=== PATIENT | male | born 1955 | race Caucasian/White ===

== ENCOUNTER → 2017-09-19 07:09 | Outpatient (CLI) | payer OTHER, SELFPAY ==
[2017-09-19 08:45] LABS: AST(SGOT) 20 U/L (15-37); Alanine Aminotransfer ALT/SGPT 31 U/L (16-61); Albumin, Serum 3.8 g/dL (3.2-5.0); Alkaline Phosphatase 107 U/L (45-117); Bilirubin, Direct 0.11 mg/dL (0.00-0.30); Cholesterol 151 mg/dL (200); Globulin 3.6 g/dL (2.2-4.2); High Density Lipoprotein 57 mg/dL; Protein, Total 7.4 g/dL (6.4-8.2); Triglycerides 82 mg/dL; Very Low Density Lipoprotein 16 mg/dL (5-40)
== END ==
PROVIDERS: Family Provider Family Medicine; PCP Family Medicine; Visit Provider Internal Medicine Cardiovascular Disease
DX: E78.5 Hyperlipidemia, unspecified (principal)
CPT/HCPCS: 36415; 80061; 80076

== ENCOUNTER → 2018-03-20 07:03 | Outpatient (CLI) | payer OTHER, SELFPAY ==
[2018-03-20 07:57] LABS: AST(SGOT) 26 U/L (15-37); Alanine Aminotransfer ALT/SGPT 49 U/L (16-61); Albumin, Serum 3.8 g/dL (3.2-5.0); Alkaline Phosphatase 96 U/L (45-117); Bilirubin, Direct 0.13 mg/dL (0.00-0.30); Cholesterol 133 mg/dL (200); Globulin 3.7 g/dL (2.2-4.2); High Density Lipoprotein 46 mg/dL; Protein, Total 7.5 g/dL (6.4-8.2); Triglycerides 90 mg/dL; Very Low Density Lipoprotein 18 mg/dL (5-40)
== END ==
PROVIDERS: Family Provider Family Medicine; PCP Family Medicine; Referring Provider Physician Assistant Medical; Visit Provider Physician Assistant Medical
DX: E78.5 Hyperlipidemia, unspecified (principal); I25.10 Atherosclerotic heart disease of native coronary artery without angina pectoris
CPT/HCPCS: 36415; 80061; 80076

== ENCOUNTER → 2018-06-26 09:04 | Outpatient (CLI) | payer MEDICARE, OTHER, SELFPAY ==
[2018-06-26 09:04] VITALS: BMI 36.6
[2018-06-26 09:41] LABS: Erythrocyte Sedimentation Rate 12 mm/hr (0-20)
[2018-06-26 09:43] LABS: Absolute Lymphocyte Count 1.56 X10^3/ul (0.83-4.51); Absolute Neutrophil Count 3.5 X10^3/uL (2.0-7.7); Basophil# 0.07 X10^3/uL; Basophil% 1.2 % (0-1); Eosinophil# 0.19 X10^3/uL; Eosinophils% 3.3 % (0-5); Hematocrit 45.2 % (40-54); Hemoglobin 15.6 g/dl (13.0-16.5); Lymphocyte # 1.56 X10^3/ul (4.0); Mean Corp Hgb Conc 34.5 g/gl (32-36); Mean Corpuscular Hgb 31.7 pg (27.0-32.0); Mean Corpuscular Volume 91.9 fL (80-94); Mean Platelet Vol. 11.4 fl (6.2-12.0); Monocyte# 0.45 X10^3/uL; Monocyte% 7.8 % (0-10); Neutrophil # 3.47 X10^3/uL (2.7-7.7); Neutrophil % 60.2 % (47-70); Platelet Count 234 K/mm3 (150-450); RBC Distribution Width CV 13.8 % (11.6-14.6); RBC Distribution Width SD 44.7 fl (35.1-43.9); Red Blood Count 4.92 M/mm3 (4.6-6.2); White Blood Count 5.8 K/mm3 (4.4-11.0)
[2018-06-26 09:47] LABS: POSITIVE COUNT NO; POSITIVE DIFFERENTIAL NO; POSITIVE MORPHOLOGY NO
[2018-06-26 10:12] LABS: ALB/GLOB Ratio 1.2 RATIO (0.9-2.4); AST(SGOT) 39 U/L (15-37); Alanine Aminotransfer ALT/SGPT 65 U/L (16-61); Albumin, Serum 3.9 g/dL (3.2-5.0); Alkaline Phosphatase 106 U/L (45-117); Anion Gap 12 (5-15); BUN 13 mg/dL (7-18); CRP 6.09 mg/L (0.0-3.0); Chloride 105 mmol/L (98-107); Creatinine, Serum 0.72 mg/dL (0.70-1.30); EST Glomerular Filtration Rate 116 mL/min (>60); Est Glom Filt Rate - Afr Amer 140 mL/min (>60); Globulin 3.3 g/dL (2.2-4.2); Glucose 155 mg/dL (74-106); Protein, Total 7.2 g/dL (6.4-8.2); Sodium Level 142 mmol/L (136-145)
== END ==
PROVIDERS: Family Provider Family Medicine; PCP Family Medicine; Referring Provider Internal Medicine Rheumatology; Visit Provider Internal Medicine Rheumatology
DX: M06.09 Rheumatoid arthritis without rheumatoid factor, multiple sites (principal); M25.561 Pain in right knee; G89.29 Other chronic pain; K76.0 Fatty (change of) liver, not elsewhere classified; Z79.899 Other long term (current) drug therapy
CPT/HCPCS: 36415; 80053; 85025; 85652; 86140

== ENCOUNTER 2018-07-20 18:09 | Inpatient (IN) | payer MEDICARE, OTHER, SELFPAY ==
[2018-06-26 09:04] VITALS: BMI 36.6
[2018-07-20] VITALS (7 sets, daily range): BP systolic 117–149; BP diastolic 53–73; PULSE 94–112; RESP 16–30; TEMP 36.7–38.7; O2SAT 88–94; BMI 37.8; BMI 38.6
--- NOTE | 2018-07-20 18:35 | EKG12_ITS ---
Test Reason : Blood Pressure : / mmHG Vent. Rate : 105 BPM Atrial Rate : 105 BPM P-R Int : 130 ms QRS Dur : 090 ms QT Int : 340 ms P-R-T Axes : 000 -20 067 degrees QTc Int : 449 ms Sinus tachycardia Otherwise normal ECG Confirmed by SHREYAS RIOS, KIKO ([id number]), business editor DOMINGA KHAN ([id number]) on 07/24/2018 2:05:04 PM Referred By: Confirmed By:KIKO PRITCHETT MD
--- NOTE | 2018-07-20 18:41 | RAD_ITS ---
HISTORY: constipation for 7 days EXAM: KUB COMPARISON: None FINDINGS: # of images incl. paperwork: 3 XR Abdomen 1 View: BOWEL GAS PATTERN: Non-obstructive. Large bowel mildly distended with air and mild stool volume. FREE AIR: No definite free air. ORGANOMEGALY: Not seen. CALCIFICATIONS: No pathologic calcifications observed. LUNG BASES: Clear. BONES AND SOFT TISSUES: Unremarkable. RAD/Abdomen Single View IMPRESSION: No evidence of obstruction or perforation. at 2003 Reported and signed by: Salinas Noriega MD Electronically Signed: Salinas Noriega, at 20:02 EST Tel , Service support ,
[2018-07-20] MEDS: Ipratropium/Albuterol Sulfate 3 ML AMPUL.NEB INHALATION (18:45)
[2018-07-20] MEDS: Albuterol 2.5 MG/3 ML VIAL.NEB. INHALATION ×2 (18:45)
--- NOTE | 2018-07-20 18:56 | ED.VISSUMM ---
- ER Visit Summary Date of Service: 07/20/18 Chief Complaint: Cough, constipation History of Present Illness: The patient is a 63 M presenting with cough and constipation. Patient states he has had cough since Tuesday. He complains of subjective fever, chills, productive cough. He has had shortness of breath. He has chest pain only when he coughs. He has had constipation for the past 7 days. He has abdominal pain and nausea. He denies vomiting. He does not wear home O2. He is a previous smoker. Physical Examination: Vitals are stable. Heart rate 111. Pulse ox 88% on room air. Patient is afebrile. Alert no acute distress. HEENT exam is unremarkable. Neck is supple. Lungs are rhonchi bilaterally. Heart is regular and tachycardic Abdomen is soft, mild suprapubic tenderness with no rebound or guarding Extremities are unremarkable. Skin is warm and dry. No focal neurologic deficit. Remainder of exam is unremarkable. Emergency Department Course and Treatment: Patient was given albuterol, Atrovent aerosols. EKG is sinus tachycardia rate of 105, no acute ischemic changes. Chest x-ray and abdominal x-ray showed no acute process. CBC, chemistries unremarkable other than glucose 190. Troponin 0.024. Influenza A positive. His pulse ox is 91% on 4 L. He states he is unable to ambulate to the bathroom due to shortness of breath. Discussed with the hospitalist for admission. Disposition: Admission Impression: Influenza, hypoxia This note was generated with [employer] dictation software. It may contain incorrect words, spelling, and punctuation that were not noted in review of the chart prior to signing ED Disposition - Plan for ED Patient: Referrals: Cesar Andres [Primary Care Provider] -
[2018-07-20 19:09] LABS: Absolute Lymphocyte Count 0.39 X10^3/ul (0.83-4.51); Absolute Neutrophil Count 6.4 X10^3/uL (2.0-7.7); Hematocrit 46.5 % (40-54); Hemoglobin 15.5 g/dl (13.0-16.5); Lymphocyte # 0.39 X10^3/ul (4.0); Lymphocyte % 5.3 % (19-41); Mean Corp Hgb Conc 33.3 g/gl (32-36); Mean Corpuscular Hgb 31.1 pg (27.0-32.0); Mean Corpuscular Volume 93.4 fL (80-94); Mean Platelet Vol. 11.5 fl (6.2-12.0); Monocyte# 0.56 X10^3/uL; Monocyte% 7.6 % (0-10); Neutrophil # 6.41 X10^3/uL (2.7-7.7); Platelet Count 152 K/mm3 (150-450); RBC Distribution Width SD 47.2 fl (35.1-43.9); Red Blood Count 4.98 M/mm3 (4.6-6.2); White Blood Count 7.4 K/mm3 (4.4-11.0)
[2018-07-20 19:11] LABS: Differential Indicated SCAN CRITERIA MET; POSITIVE COUNT NO; POSITIVE DIFFERENTIAL YES; POSITIVE MORPHOLOGY NO
[2018-07-20 19:17] LABS: Anion Gap 11 (5-15); BUN 16 mg/dL (7-18); Calcium,Total 8.6 mg/dL (8.5-10.1); Chloride 95 mmol/L (98-107); EST Glomerular Filtration Rate 80 mL/min (>60); Est Glom Filt Rate - Afr Amer 97 mL/min (>60); Estimated Creatinine Clearance 71.25 ml/min; Glucose 190 mg/dL (74-106); Potassium 3.8 mmol/L (3.5-5.1); Sodium Level 134 mmol/L (136-145)
[2018-07-20 19:24] LABS: Lactic Acid 1.7 mmol/L (0.4-2.0)
--- NOTE | 2018-07-20 19:27 | ED.RN ---
lab called with positive flu results. positive for flu A. Dr. Mcwilliams made aware.
--- NOTE | 2018-07-20 19:30 | RAD_ITS ---
HISTORY: cough for 7 days EXAM: XR Chest 1 View: COMPARISON: None FINDINGS: # of images incl. paperwork: 1 LINES/DEVICES: None. LUNGS: Radiographically clear. No consolidation, edema or effusion. No pneumothorax. MEDIASTINUM AND CARDIOVASCULAR STRUCTURES: Cardiac silhouette not enlarged. Central airways and mediastinal contour are unremarkable. BONES AND SOFT TISSUES: Unremarkable. RAD/Chest 1 View (Portable) IMPRESSION: No radiographic evidence of acute cardiopulmonary disease. at 2003 Reported and signed by: Salinas Noriega MD Electronically Signed: Salinas Noriega, at 20:02 EST Tel , Service support ,
[2018-07-20 19:40] LABS: Differential Comment SCANNED
--- NOTE | 2018-07-20 21:37 | PCM.HP.STD ---
Problem List (1) Acute bronchitis Status: Acute Qualifiers: Bronchitis organism: other organism Qualified Code(s): J20.8 - Acute bronchitis due to other specified organisms (2) Influenza A Status: Acute (3) Constipation Status: Acute Qualifiers: Constipation type: unspecified constipation type Qualified Code(s): K59.00 - Constipation, unspecified History of Present Illness Date of Admission: 07/20/18 Chief Complaint: shortness of breath and fatigue. The patient is a 63 year old M presents with weakness and shortness of breath. Patient said the symptoms began around 5-6 days ago. Since that time he has progressively gotten weaker and more short of breath. He is coughing and having paroxysms of cough at night that keep him up. Patient also states that he has been constipated over the past 7 days. He does state that he has not been eating much but though is drinking fluids. Patient since he was not getting better, presented to the emergency room and was diagnosed with influenza A. Given that his symptoms began several days prior, he did not receive Tamiflu. He did receive bronchodilators in the emergency room. Patient denies any history of COPD or asthma. He states that he did not get a influenza vaccination this year. [] Past Medical History Past Medical History (Chronic Problems): Chronic Problems (Last Reviewed 09/08/17 @ 14:31 by Meghann Maldonado) Presence of stent in coronary artery (Chronic ~03/15/06) PTCA/RACHEL to Mid RCA 03/15/06 Atherosclerotic heart disease of [place] coronary artery without angina pectoris (Chronic) PTCA/RACHEL to Mid RCA 03/15/06 HTN (hypertension) (Chronic) Medical History: Medical History (Last Reviewed 07/20/18 @ 21:39 by Joaquín Laughlin DO) Paroxysmal atrial fibrillation (Acute) I48.0 Atherosclerotic heart disease of [place] coronary artery without angina pectoris (Chronic) I25.10 PTCA/RACHEL to Mid RCA 03/15/06 Hyperlipidemia (Acute) E78.5 HTN (hypertension) (Chronic) I10 Pulmonary nodule R91.1 Rheumatoid arthritis M06.9 BPH (benign prostatic hyperplasia) N40.0 GERD (gastroesophageal reflux disease) K21.9 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, 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, 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 Allergies atorvastatin [From Lipitor] Adverse Reaction (Severe, Verified 03/13/18 09:46) Myalgias IVP Dye Adverse Reaction (Unknown, Uncoded 09/08/17 14:23) Unknown Home Medications: Ambulatory Orders Medication Instructions Recorded tamsulosin 0.4 mg capsule 0.4 mg PO DAILY 06/29/17 methotrexate sodium 2.5 mg tablet 17.5 mg PO TU tab 09/08/17 Aspirin [Aspir-Low] 81 mg PO DAILY 07/20/18 Folic Acid 1 mg PO DAILY 07/20/18 Metoprolol Succinate [Toprol Xl] 50 mg PO DAILY 07/20/18 Pravastatin Sodium 80 mg PO QHS 07/20/18 Surgical History: Surgical History (Last Reviewed 07/20/18 @ 21:39 by Joaquín Laughlin DO) Presence of stent in coronary artery (Chronic) Onset Date: ~03/15/06 Z95.5 PTCA/RACHEL to Mid RCA 03/15/06 Postsurgical percutaneous transluminal coronary angioplasty (PTCA) status Onset Date: ~03/15/06 Z98.61 PTCA/RACHEL to Mid RCA 03/15/06 History of arthroplasty of left shoulder Z98.890 History of arthroplasty of right shoulder Z98.890 History of cardiac radiofrequency ablation (RFA) Onset Date: ~01/20/17 Z98.890 History of carpal tunnel surgery Z92.89 History of hand surgery Z98.890 History of sinus surgery Z98.890 Smoking Status: Former smoker Tobacco Use: Non-smoker Alcohol: None Drugs: None - *Family History Maternal Family History: Family History (Last Reviewed 07/20/18 @ 21:40 by Joaquín Laughlin DO) Son Diabetes Mother Myocardial infarction, Onset Age: 73 Father No problems noted. Son Diabetes Review of Systems Constitutional: Reports: Anorexia, Malaise, Weakness. Denies: Chills, Fever Eyes: Denies: Blurred vision, Double vision HEENT: Denies: Head Aches, Sinus Congestion, Sinus Drainage Cardiovascular: Reports: Chest Pain - from coughing.. Denies: Palpitations Respiratory: Reports: Cough, Shortness of Breath Gastrointestinal: Reports: Constipation. Denies: Abdominal Pain, Nausea, Vomiting Genitourinary: Reports: Retention. Denies: Dysuria Musculoskeletal: Denies: Joint Pain, Joint Tenderness Skin: Reports: - - bruise on right hand. Neurological: Denies: Balance problems, Blurred vision, Double vision, Change in Speech Psychiatric: Denies: Anxiety, Depression Endocrine: Denies: Change in Body Habitus, Heat/ Cold Intolerance Hematologic/ Lymphatic: Denies: Easy Bruising, Easy Bleeding, Hx of blood clot Comment: A 10 point review of systems were negative except as mentioned in the history of present illness and the other review of systems. VTE Information - Inpt Only VTE Present on Admission: No VTE Mechan Device Prophylaxis: None VTE Pharm Prophylaxis ordered?: Yes Patient Problems: Active and Suspected Problems (Last Reviewed 09/08/17 @ 14:31 by Meghann Maldonado) Acute bronchitis (Acute) Influenza A (Acute) Constipation (Acute) - Physical Exam General: Alert, Cooperative, No apparent distress HEENT: Atraumatic, Normocephalic Oral: Moist Mucosa, No Gingival or Mucosal Lesions/ Ulcerations Neck: No Nodes, Thyroid Normal Size and Texture Lungs: Diminished, Wheezes Cardiovascular: Regular rate, Regular Rhythm, Normal S1, Normal S2, No murmurs Abdomen: Bowel Sounds Present, Soft, Non Tender, Non-Distended, No Hepato-splenomegaly, Obese Extremities: No edema, No Calf Tenderness Skin: No rashes, No breakdown, - - Small ecchymosis on the dorsum of his right hand. Musculoskeletal: No Tenderness to Palpation of Joints or Extremities, No Muscle Wasting Neurological: Deep Tendon Reflexes 2+/4 and Symmetrical, - - No clonus Psych/Mental Status: Normal Affect, Appropriate Vital Signs Temp Pulse Resp BP Pulse Ox 38.5 C H 99 30 H 149/71 H 91 07/20/18 20:17 07/20/18 20:17 07/20/18 20:17 07/20/18 18:10 07/20/18 20:17 Oxygen Flow Rate (L/min) 4 Oxygen Delivery Method Nasal Cannula Weight: 112.945 kg Body Mass Index (BMI) 37.8 Microbiology Past 72 Hours 07/20/18 19:00 Influenza Types A,B Direct FA (MERY) - Final Mucosa - Nasopharyngeal Influenzae A Laboratory Tests Past 24 Hrs 07/20/18 07/20/18 07/20/18 18:53 18:53 18:53 WBC 7.4 RBC 4.98 Hgb 15.5 Hct 46.5 MCV 93.4 MCH 31.1 MCHC 33.3 RDW 14.0 RDW Differential 47.2 H Plt Count 152 MPV 11.5 Immature Gran % (Auto) 0.100 Neut % (Auto) 87.0 H Lymph % (Auto) 5.3 L [place] % (Auto) 7.6 Eos % (Auto) 0.0 Baso % (Auto) 0.0 Absolute Neuts (auto) 6.4 Absolute Lymphs (auto) 0.39 L Total Counted Not Reportable Differential Comment SCANNED Sodium 134 L Potassium 3.8 Chloride 95 L Carbon Dioxide 28.0 Anion Gap 11 BUN 16 Creatinine 1.00 Estim Creat Clear Calc 71.25 Est GFR (MDRD) Af Amer 97 Est GFR (MDRD) Non-Af 80 BUN/Creatinine Ratio 16.0 Glucose 190 H Lactic Acid 1.7 Calcium 8.6 Troponin I 0.024 Chest x-ray reviewed and shows no acute process. EKG reviewed and showed slight sinus tachycardia but otherwise no acute process. Assessment/Plan All Active Problems (Last Reviewed 09/08/17 @ 14:31 by Meghann Maldonado) Acute bronchitis (Acute) Influenza A (Acute) Constipation (Acute) Paroxysmal atrial fibrillation (Acute) Hyperlipidemia (Acute) 1. Acute bronchitis: Secondary to influenza. Patient will be on bronchodilators as well as steroids. Given the hypoxia when he presented, would recommend amatory pulse ox prior to discharge when the patient is medically ready. 2. Influenza A: Symptoms began 5-6 days ago, so patient is out of the window for initiation of Tamiflu. Patient does endorse that he did not get an influenza vaccination this year. Patient was not pressed for reason why. He was open to receiving influenza vaccination to help prevent influenza B. Patient volunteer that he will be getting patient next year. 3. Constipation: Patient states that his been 7 days since his last bowel movements. Patient will receive Dulcolax tonight to be started on MiraLAX daily. 4. DVT prophylaxis with LMWH. Code Visit OBSV E&M: [id number] Initial observation care L3
--- NOTE | 2018-07-20 22:39 | NURSING ---
Dr ordered the flue shot on admit ordered.
[2018-07-20] MEDS: 0.9% Normal Saline 1,000 ML 150 ML IV (23:29)
[2018-07-20] MEDS: Bisacodyl 5 MG Tablet 10 MG PO (23:29)
[2018-07-20] MEDS: Pravastatin 80 MG Tablet PO (23:29)
[2018-07-20] MEDS: traZODone 50 MG Tablet PO (23:29)
[2018-07-20] MEDS: guaiFENesin/Codeine 5 ML UDC 10 ML PO (23:37)
[2018-07-20] MEDS: Acetaminophen 325 MG Tablet 650 MG PO (23:59)
[2018-07-21] VITALS (29 sets, daily range): BP systolic 68–158; BP diastolic 40–95; PULSE 50–127; RESP 12–34; TEMP 36.4–37.7; O2SAT 55–94
[2018-07-21 06:16] LABS: Red Blood Cells-Urine 0 SEEN /hpf (0-5); Squamous Epithelial Cells - UA 0 SEEN /hpf (0-5); White Blood Cells 0 SEEN /hpf (0-5)
[2018-07-21 06:23] LABS: Color, Urine Yellow (Yellow); Glucose, Dipstick Normal (Normal); Ketone-Dipstick 15 mg/dl (Negative); Leukocyte Esterase-Dipstick Negative /ul (Negative); Nitrite-Dipstick Negative (Negative); Occult Blood-Urine 50 /ul (Negative); Protein-Dipstick 100 mg/dl (Negative); Urine Bilirubin Dipstick Negative (Negative); Urine Clarity Clear (Clear); Urine Urobilinogen Normal (Normal)
[2018-07-21 06:28] LABS: Amorphous Sediment 1+; Bacteria RARE /hpf (None Seen); Hyaline Cast 0-5 SEEN /lpf (0-5)
[2018-07-21 06:29] LABS: Mucous, Urine RARE /hpf (<or=2+)
[2018-07-21] MEDS: Enoxaparin 40 MG/0.4 ML Syringe SC (09:25)
[2018-07-21] MEDS: Aspirin E.C. 81 MG Tablet PO (09:25)
[2018-07-21] MEDS: Folic Acid 1 MG Tablet PO (09:26)
[2018-07-21] MEDS: Tamsulosin HCl 0.4 MG Capsule PO (09:26)
[2018-07-21] MEDS: Polyethylene Glycol 3350 17 GM PACKET PO (09:27)
[2018-07-21] MEDS: Metoprolol(XL)Succ 50 MG Tablet PO (09:28)
[2018-07-21] MEDS: Ipratropium/Albuterol Sulfate 3 ML AMPUL.NEB INHALATION ×4 (10:55→23:00)
--- NOTE | 2018-07-21 11:07 | RAD_ITS ---
HISTORY: ABDOMINAL DISTENTION, CONSTIPATION, NO BM X8 DAYS EXAM: Abdominal series COMPARISON: 02/27/16 CT abdomen pelvis. FINDINGS: # of images incl. paperwork: 5 XR Abdomen W/ Decub and/or Erect Views: BOWEL GAS PATTERN: Mild diffuse distention of the large bowel and small bowel with air, very little stool. Air is seen within the rectum. FREE AIR: None. ORGANOMEGALY: Not seen. CALCIFICATIONS: No pathologic calcifications observed. LUNG BASES: Clear. BONES AND SOFT TISSUES: Degenerative changes. RAD/Abd Inc Decub and/or Erect IMPRESSION: Diffuse distention of bowel most likely ileus. Distal colonic obstruction not likely but possible. at 0143 Reported and signed by: Salinas Noriega MD Electronically Signed: Salinas Noriega, at 1:42 EST Tel , Service support ,
--- NOTE | 2018-07-21 11:07 | PCM.PN.HOSP ---
Patient Problems: Active and Suspected Problems (Last Reviewed 07/20/18 @ 21:39 by Joaquín Laughlin DO) Acute bronchitis (Acute) Influenza A (Acute) Constipation (Acute) Subjective: Patient had fever and chills, T-max 101.6 Fahrenheit last night and low-grade 99 point 8 in the morning today. Patient is short of breath. Patient is on 6 L of oxygen and still gets easily short of breath on coughing or mild exertion. Patient has about 60 pack years of history, 2 packs daily for 30 years quit 20 years ago. Patient further said he had a PFT about [address] [facility] and was recommended nebulization and DuoNeb but is not sure of his diagnosis of COPD. He denies chronic cough. It seems patient has sleep apnea and was recommended sleep study but he never followed up in our pulmonary clinic. Dr. Ponce is seen more than a year ago Vitals/I&O's: Vital Signs Temp Pulse Resp BP Pulse Ox 98.5 F 98 28 H 133/79 H 88 07/21/18 10:46 07/21/18 10:46 07/21/18 10:46 07/21/18 10:46 07/21/18 10:46 Oxygen Flow Rate (L/min) 6 Oxygen Delivery Method Nasal Cannula Weight: 253 lb 8.505 oz Body Mass Index (BMI) 38.6 Intake and Output for Last 24 Hours 07/19/18 07/20/18 07/21/18 23:59 23:59 23:59 Intake Total 1304 / 1304 Output Total 350 / 350 Balance 954 / 954 General: Alert, Oriented x3, Cooperative HEENT: Atraumatic, PERRLA, EOMI, Normocephalic Neck: Supple, No JVD, Negative Carotid Bruits Lungs: Diminished, Rhonchi, Short of Breath, Tachypneic, Wheezes Cardiovascular: Regular rate, Regular Rhythm, Normal S1, Normal S2, No murmurs Abdomen: Bowel Sounds Present, Soft, Non Tender, Non-Distended Extremities: No edema, Capillary Refill Less than 3 Seconds Skin: No rashes, No breakdown Musculoskeletal: No Tenderness to Palpation of Joints or Extremities Neurological: Cranial nerves II-XII grossly intact Psych/Mental Status: Normal Affect, Appropriate Microbiology Past 72 Hours 07/20/18 19:00 Mucosa - Nasopharyngeal Influenza Types A,B Direct FA (MERY) - Final Influenzae A Laboratory Results 07/20/18 18:53: WBC 7.4, RBC 4.98, Hgb 15.5, Hct 46.5, MCV 93.4, MCH 31.1, MCHC 33.3, RDW 14.0, RDW Differential 47.2 H, Plt Count 152, MPV 11.5, Immature Gran % (Auto) 0.100, Neut % (Auto) 87.0 H, Lymph % (Auto) 5.3 L, [place] % (Auto) 7.6, Eos % (Auto) 0.0, Baso % (Auto) 0.0, Absolute Neuts (auto) 6.4, Absolute Lymphs (auto) 0.39 L, Total Counted Not Reportable, Differential Comment SCANNED 07/20/18 18:53: Sodium 134 L, Potassium 3.8, Chloride 95 L, Carbon Dioxide 28.0, Anion Gap 11, BUN 16, Creatinine 1.00, Estim Creat Clear Calc 71.25, Est GFR (MDRD) Af Amer 97, Est GFR (MDRD) Non-Af 80, BUN/Creatinine Ratio 16.0, Glucose 190 H, Calcium 8.6, Troponin I 0.024 07/20/18 18:53: Lactic Acid 1.7 07/21/18 06:00: Urine Color Yellow, Urine Clarity Clear, Urine pH 6.0, Ur Specific [place] 1.020, Urine Protein 100 H, Urine Glucose (UA) Normal, Urine Ketones 15 H, Urine Occult Blood 50 H, Urine Nitrite Negative, Urine Bilirubin Negative, Urine Urobilinogen Normal, Ur Leukocyte Esterase Negative, Urine RBC 0 SEEN, Urine WBC 0 SEEN, Ur Squamous Epith Cells 0 SEEN, Amorphous Sediment 1+, Urine Bacteria RARE, Hyaline Casts 0-5 SEEN, Urine Mucus RARE Current Medications Acetaminophen (Tylenol) 650 mg PO Q6H PRN PRN PRN Reason: Mild Pain (1-3)/Temp > 100.7 F Last Admin: 07/20/18 23:59 Dose: 650 mg Albuterol Sulfate (Ventolin Aerosols) 2.5 mg INHALATION Q2H PRN PRN PRN Reason: SHORTNESS OF BREATH Albuterol/Ipratropium (Duoneb) 3 ml INHALATION Q4H.RT MELISSA Last Admin: 07/21/18 10:55 Dose: 3 ml Aspirin (Ecotrin) 81 mg PO DAILY REPLACED BY [facility] Last Admin: 07/21/18 09:25 Dose: 81 mg Enoxaparin Sodium (Lovenox) 40 mg SC DAILY@1000 REPLACED BY [facility] Last Admin: 07/21/18 09:25 Dose: 40 mg Folic Acid (Folic Acid) 1 mg PO DAILYCM REPLACED BY [facility] Last Admin: 07/21/18 09:26 Dose: 1 mg Guaifenesin/Codeine Phosphate (Robitussin Ac) 10 ml PO Q6H PRN PRN PRN Reason: couging fit Last Admin: 07/20/18 23:37 Dose: 10 ml Magnesium Hydroxide (Milk Of Magnesia) 30 ml PO DAILY PRN PRN PRN Reason: Constipation 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 (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) 17.5 mg PO [facility] Methylprednisolone (Solu-Medrol) 40 mg IV Q8 REPLACED BY [facility] Last Admin: 07/21/18 05:25 Dose: 40 mg Metoprolol Succinate (Toprol Xl (Beta Patricia)) 50 mg PO DAILY REPLACED BY [facility] Last Admin: 07/21/18 09:28 Dose: 50 mg Nutritional Formula (Lactose Free) (Ensure Enlive) 120 ml PO 4X/DAY REPLACED BY [facility] Last Admin: 07/21/18 09:30 Dose: 120 ml Ondansetron HCl (Zofran) 4 mg IV Q8H PRN PRN PRN Reason: NAUSEA Polyethylene Glycol (Miralax) 17 gm PO DAILY REPLACED BY [facility] Last Admin: 07/21/18 09:27 Dose: 17 gm Pravastatin Sodium (Pravachol) 80 mg PO QHS REPLACED BY [facility] Last Admin: 07/20/18 23:29 Dose: 80 mg Tamsulosin HCl (Flomax) 0.4 mg PO DAILY REPLACED BY [facility] Last Admin: 07/21/18 09:26 Dose: 0.4 mg Trazodone HCl (Desyrel) 50 mg PO QHS REPLACED BY [facility] Last Admin: 07/20/18 23:29 Dose: 50 mg Medical Necessity - Tobacco Use Smoking Status: Former smoker Tobacco Use: Non-smoker Assessment/Plan All Active Problems (Last Reviewed 07/20/18 @ 21:39 by Joaquín Laughlin DO) Acute bronchitis (Acute) Influenza A (Acute) Constipation (Acute) Paroxysmal atrial fibrillation (Acute) Hyperlipidemia (Acute) This 64-year-old gentleman with multiple comorbidities including history of 80 pack years of history, 2 packs daily for 40 years quit 2005, 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 fib status post ablation in [facility], coronary artery disease status PCI was admitted with with fever, chills, cough, shortness of breath for 6 days and found tachypnea and hypoxia in ED. Patient further said he had a PFT about [address] [facility] and was recommended nebulization and DuoNeb but is not sure of his diagnosis of COPD. He denies chronic cough. 1. Acute hypoxic respiratory failure most probably secondary to influenza infection with possible questionable history of COPD: Patient is being admitted on [facility] floor. Patient requires high oxygen. Pulmonary consult reviewed and appreciated. Sputum culture and blood cultures x2 ordered. Chest x-ray does not show acute cardiopulmonary abnormality. Although chest x-ray is negative but based on fever, chills, hypoxia and change in his sputum, patient was started on Tamiflu and Levaquin. Continue bronchodilator, IV Solu-Medrol chest physiotherapy, Mucinex and incentive spirometry. 2. History of obstructive sleep apnea: Noncompliant with CPAP. 3. Constipation: Patient did not had bowel movement for 7 days. Subjective gaseous distention. Abdominal KUB x-ray ordered. Patient on laxatives and Dulcolax. 4. history of chronic A. fib status post ablation, coronary artery disease status post PCI: 5. Pulmonary nodules: Patient outpatient pulmonary clinic note reviewed. 6. Rheumatoid arthritis on methotrexate 7. DVT Prophylaxis on Lovenox: Discontinue if platelet count drops less than 50,000 or hemoglobin less than 8 g% Code Visit Inpatient E&M: [id number] [place] [id number]
--- NOTE | 2018-07-21 11:40 | CASEMGMT ---
SIMEON NOGUEIRA Face to Face with patient for initial transition planning/care coordination assessment. RN CM introduced self and role at [facility]. Patient lying in bed, alert and oriented. Patient willing to participate in assessment and is able to answer all questions appropriately. Care providers, pharmacy, and demographics verified. Patient wishes to discharge home, denies need for home health at this time. Patient states he has no further needs or concerns at this time. CM to follow for discharge planning needs that may arise. PCP: Dmitry Specialists:Peter, child welfare counselor; Juan, cardiologis; Kris, box fabricator Preferred Pharmacy: [facility] Benef[facility]: YEs Living Will/HPOA: None LNOK: Living Arrangements: Patient lives with in 1 story home with 4 step and railing to enter the home. Patient states he is independent at home. Transportation: self/ DME/HHC: Paitent denies any DME in the home. Patient states would like [employer] for DME. Will monitor for need for home oxygen and nebulizer at discharge. Disposition Plan: Patient to discharge home with family support and follow-up plans in place. Sara DAWKINS, RN, CM
[2018-07-21] MEDS: Magnesium Hydroxide 30 ML UDC PO (12:40)
--- NOTE | 2018-07-21 12:53 | CON.PCM_ITS ---
Reason for Consult Date of Consultation: 07/21/18 Reason for Consultation: Acute respiratory failure History of Present Illness: The patient is a 64-year-old male, with a history as outlined below, who initially presented to the emergency department on July 20 with complaints of a productive cough and shortness of breath. The patient was evaluated in the pulmonary medicine clinic in June 2017 after he was referred for evaluation of abnormal chest imaging. The patient has a smoking history that includes upwards of 2 packs per day ?40 years. The patient quit smoking completely in 2005. He also has a long-standing alcohol abuse history, but has been sober now ?2 months. The patient reportedly had a history of atrial fibrillation for which he underwent pulmonary vein ablation by Dr. Guerrero of [facility] previously. Patient also reports having coronary artery disease for which he underwent PCI in 2005. As part of the post ablation workup, the patient had a CTA chest completed April 20, 2017, which revealed no evidence for PE. A total of 3 noncalcified pulmonary nodules were identified. There was a 3 mm node in the lingula, along with 2 small nodules in the left lower lobe, one 5 mm and the other 2 mm in size. He also stated that he had been previously diagnosed with rheumatoid arthritis and is currently on treatment with methotrexate. He also reported a history of obstructive sleep apnea, but has never been treated with nocturnal Pap therapy. The patient was supposed to follow-up with me after his initial office visit, as pulmonary function studies have been ordered. However, the patient failed to follow-up. On presentation to the emergency department, the patient was noted to be afebrile, tachycardic and hypoxic. Laboratory evaluation revealed no evidence of a leukocytosis. Chemistry profile was largely unremarkable. Serum lactate was within normal limits. Troponin was negative. Plain film chest x-ray revealed no acute cardiopulmonary process. The patient's rapid influenza screen was positive for influenza A. He was subsequently admitted to the medical surgical floor, where he has been maintained on scheduled bronchodilators and IV steroids. Past Medical History Past Medical History (Chronic Problems): Chronic Problems (Last Reviewed 07/20/18 @ 21:39 by Joaquín Laughlin DO) Presence of stent in coronary artery (Chronic ~03/15/06) PTCA/RACHEL to Mid RCA 03/15/06 Atherosclerotic heart disease of [place] coronary artery without angina pectoris (Chronic) PTCA/RACHEL to Mid RCA 03/15/06 HTN (hypertension) (Chronic) Medical History: Medical History (Last Reviewed 07/20/18 @ 21:39 by Joaquín Laughlin DO) Paroxysmal atrial fibrillation (Acute) I48.0 Atherosclerotic heart disease of [place] coronary artery without angina pectoris (Chronic) I25.10 PTCA/RACHEL to Mid RCA 03/15/06 Hyperlipidemia (Acute) E78.5 HTN (hypertension) (Chronic) I10 Pulmonary nodule R91.1 Rheumatoid arthritis M06.9 BPH (benign prostatic hyperplasia) N40.0 GERD (gastroesophageal reflux disease) K21.9 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, [employer], 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 Allergies atorvastatin [From Lipitor] Adverse Reaction (Severe, Verified 03/13/18 09:46) Myalgias IVP Dye Adverse Reaction (Unknown, Uncoded 09/08/17 14:23) Unknown Home Medications: Ambulatory Orders Medication Instructions Recorded tamsulosin 0.4 mg capsule 0.4 mg PO DAILY 06/29/17 methotrexate sodium 2.5 mg tablet 17.5 mg PO TU tab 09/08/17 Aspirin [Aspir-Low] 81 mg PO DAILY 07/20/18 Folic Acid 1 mg PO DAILY 07/20/18 Metoprolol Succinate [Toprol Xl] 50 mg PO DAILY 07/20/18 Pravastatin Sodium 80 mg PO QHS 07/20/18 Surgical History: Surgical History (Last Reviewed 07/20/18 @ 21:39 by Joaquín Laughlin DO) Presence of stent in coronary artery (Chronic) Onset Date: ~03/15/06 Z95.5 PTCA/RACHEL to Mid RCA 03/15/06 Postsurgical percutaneous transluminal coronary angioplasty (PTCA) status Onset Date: ~03/15/06 Z98.61 PTCA/RACHEL to Mid RCA 03/15/06 History of arthroplasty of left shoulder Z98.890 History of arthroplasty of right shoulder Z98.890 History of cardiac radiofrequency ablation (RFA) Onset Date: ~01/20/17 Z98.890 History of carpal tunnel surgery Z92.89 History of hand surgery Z98.890 History of sinus surgery Z98.890 Smoking Status: Former smoker Tobacco Use: Non-smoker Alcohol: None Drugs: None - *Family History Maternal Family History: Family History (Last Reviewed 07/20/18 @ 21:40 by Joaquín Laughlin DO) Son Diabetes Mother Myocardial infarction, Onset Age: 73 Father No problems noted. Son Diabetes Review of Systems Constitutional: Reports: Chills, Fever, Malaise, Fatigue Eyes: Denies: Blurred vision, Double vision HEENT: Denies: Head Aches, Sinus Congestion, Sinus Drainage Cardiovascular: Reports: Chest Tightness Respiratory: Reports: Cough, Shortness of Breath, Wheezing Gastrointestinal: Denies: Abdominal Pain, Nausea, Vomiting Genitourinary: Denies: Dysuria Musculoskeletal: Denies: Joint Pain, Joint Tenderness Skin: Denies: Rash, Wounds Neurological: Denies: Numbness, Tingling, Focal weakness Psychiatric: Denies: Anxiety, Depression, Homicidal Ideations, Suicidal Ideations Hematologic/ Lymphatic: Denies: Easy Bruising, Easy Bleeding Patient Problems: Active and Suspected Problems (Last Reviewed 07/20/18 @ 21:39 by Joaquín Laughlin DO) Acute bronchitis (Acute) Influenza A (Acute) Constipation (Acute) Objective: The patient's most recent lab work, culture data and imaging studies have all been personally reviewed. Rapid influenza screen was positive for influenza A. - Physical Exam General: Alert, Cooperative, No apparent distress HEENT: Atraumatic, PERRLA, Normocephalic Oral: No Gingival or Mucosal Lesions/ Ulcerations Neck: Supple, No Nodes, Trachea Midline Lungs: No rhonchi, No rales, Diminished, Wheezes Cardiovascular: Normal S1, Normal S2, No murmurs, Tachycardic Abdomen: Bowel Sounds Present, Soft, Non Tender, Distended, Obese Extremities: No clubbing, No cyanosis, No edema Skin: No breakdown Musculoskeletal: No Tenderness to Palpation of Joints or Extremities, No Muscle Wasting Lymphatic: No Cervical, Supraclavicular, or Inguinal Adenopathy Neurological: Cranial nerves II-XII grossly intact, Neuro grossly intact Psych/Mental Status: Normal Affect, Appropriate Vital Signs Temp Pulse Resp BP Pulse Ox 37.7 C H 112 H 24 H 144/80 H 90 07/21/18 12:10 07/21/18 12:10 07/21/18 12:10 07/21/18 12:10 07/21/18 12:10 Oxygen Flow Rate (L/min) 8 Oxygen Delivery Method Nasal Cannula Weight: 253 lb 8.505 oz Body Mass Index (BMI) 38.6 Intake and Output for Last 24 Hours 07/19/18 07/20/18 07/21/18 23:59 23:59 23:59 Intake Total 1304 / 1304 Output Total 350 / 350 Balance 954 / 954 Microbiology Past 72 Hours 07/20/18 19:00 Influenza Types A,B Direct FA (MERY) - Final Mucosa - Nasopharyngeal Influenzae A Laboratory Tests Past 24 Hrs 07/20/18 07/20/18 07/20/18 18:53 18:53 18:53 WBC 7.4 RBC 4.98 Hgb 15.5 Hct 46.5 MCV 93.4 MCH 31.1 MCHC 33.3 RDW 14.0 RDW Differential 47.2 H Plt Count 152 MPV 11.5 Immature Gran % (Auto) 0.100 Neut % (Auto) 87.0 H Lymph % (Auto) 5.3 L [place] % (Auto) 7.6 Eos % (Auto) 0.0 Baso % (Auto) 0.0 Absolute Neuts (auto) 6.4 Absolute Lymphs (auto) 0.39 L Total Counted Not Reportable Differential Comment SCANNED Sodium 134 L Potassium 3.8 Chloride 95 L Carbon Dioxide 28.0 Anion Gap 11 BUN 16 Creatinine 1.00 Estim Creat Clear Calc 71.25 Est GFR (MDRD) Af Amer 97 Est GFR (MDRD) Non-Af 80 BUN/Creatinine Ratio 16.0 Glucose 190 H Lactic Acid 1.7 Calcium 8.6 Troponin I 0.024 Urine Color Urine Clarity Urine pH Ur Specific [place] Urine Protein Urine Glucose (UA) Urine Ketones Urine Occult Blood Urine Nitrite Urine Bilirubin Urine Urobilinogen Ur Leukocyte Esterase Urine RBC Urine WBC Ur Squamous Epith Cells Amorphous Sediment Urine Bacteria Hyaline Casts Urine Mucus 07/21/18 06:00 WBC RBC Hgb Hct MCV MCH MCHC RDW RDW Differential Plt Count MPV Immature Gran % (Auto) Neut % (Auto) Lymph % (Auto) [place] % (Auto) Eos % (Auto) Baso % (Auto) Absolute Neuts (auto) Absolute Lymphs (auto) Total Counted Differential Comment Sodium Potassium Chloride Carbon Dioxide Anion Gap BUN Creatinine Estim Creat Clear Calc Est GFR (MDRD) Af Amer Est GFR (MDRD) Non-Af BUN/Creatinine Ratio Glucose Lactic Acid Calcium Troponin I Urine Color Yellow Urine Clarity Clear Urine pH 6.0 Ur Specific [place] 1.020 Urine Protein 100 H Urine Glucose (UA) Normal Urine Ketones 15 H Urine Occult Blood 50 H Urine Nitrite Negative Urine Bilirubin Negative Urine Urobilinogen Normal Ur Leukocyte Esterase Negative Urine RBC 0 SEEN Urine WBC 0 SEEN Ur Squamous Epith Cells 0 SEEN Amorphous Sediment 1+ Urine Bacteria RARE Hyaline Casts 0-5 SEEN Urine Mucus RARE Clinical Impression(s) from Imaging Studies KUB X-Ray 07/20/18 18:41 IMPRESSION: No evidence of obstruction or perforation. at 2002 Reported and signed by: Salinas Noriega MD Electronically Signed: Salinas Noriega, at 20:02 EST Tel , Service support , Chest X-Ray 07/20/18 19:30 IMPRESSION: No radiographic evidence of acute cardiopulmonary disease. at 2002 Reported and signed by: Salinas Noriega MD Electronically Signed: Salinas Noriega, at 20:02 EST Tel , Service support , Assessment/Plan All Active Problems (Last Reviewed 07/20/18 @ 21:39 by Joaquín Laughlin DO) Acute bronchitis (Acute) Influenza A (Acute) Constipation (Acute) Paroxysmal atrial fibrillation (Acute) Hyperlipidemia (Acute) RECOMMENDATIONS: 1. Given the tenuous nature of the patient's respiratory status, I would still advocate for the use of Tamiflu. 2. I am going to place the patient empirically on Levaquin, pending sputum culture results. 3. Obtain repeat chest x-ray tomorrow morning. 4. Wean supplemental oxygen as tolerated. 5. Continue scheduled bronchodilators and IV steroids. IMPRESSIONS: 1. Acute hypoxemic respiratory failure secondary to influenza A infection The patient has a questionable baseline history of COPD. He was seen in the pulmonary medicine clinic 1 year ago, at which time, pulmonary function studies were ordered. However, the patient never followed up. At the current time, the patient's initial plain film chest x-ray revealed no acute cardiopulmonary process. Given how tenuous his respiratory status is at the current time, I would still recommend that we utilize Tamiflu. In addition, given that the patient has a cough that is productive of sputum, I am going to place him empirically on Levaquin, pending the results of his culture data. Continue scheduled bronchodilators and IV steroids as ordered. Wean supplemental oxygen as tolerated. 2. Known history of pulmonary nodules The patient is actually past due for a repeat CT chest due to his previously identified pulmonary nodules in March 2017. 3. Obstructive sleep apnea The patient is currently noncompliant with the use of nocturnal noninvasive positive pressure ventilation. 4. Rheumatoid arthritis/atrial fibrillation status post ablation/coronary artery disease/tobacco dependency currently in remission Complicates care, management, recovery and prognosis. Continue home medications as indicated. This note was generated with [employer] dictation software. It may contain incorrect words, spelling, and punctuation that were not noted in checking the note before signing. Code Visit Inpatient E&M: 58709 Init Hosp L3
[2018-07-21 13:40] LABS: Absolute Lymphocyte Count 0.52 X10^3/ul (0.83-4.51); Absolute Neutrophil Count 11.3 X10^3/uL (2.0-7.7); Hematocrit 45.5 % (40-54); Hemoglobin 15.5 g/dl (13.0-16.5); Lymphocyte # 0.52 X10^3/ul (4.0); Lymphocyte % 4.4 % (19-41); Mean Corp Hgb Conc 34.1 g/gl (32-36); Mean Corpuscular Hgb 31.5 pg (27.0-32.0); Mean Corpuscular Volume 92.5 fL (80-94); Mean Platelet Vol. 11.1 fl (6.2-12.0); Monocyte# 0.14 X10^3/uL; Monocyte% 1.2 % (0-10); Neutrophil # 11.27 X10^3/uL (2.7-7.7); Neutrophil % 94.3 % (47-70); Platelet Count 143 K/mm3 (150-450); RBC Distribution Width CV 13.8 % (11.6-14.6); RBC Distribution Width SD 46.1 fl (35.1-43.9); Red Blood Count 4.92 M/mm3 (4.6-6.2); White Blood Count 11.9 K/mm3 (4.4-11.0)
[2018-07-21 13:41] LABS: Differential Indicated SCAN CRITERIA MET; POSITIVE COUNT NO; POSITIVE DIFFERENTIAL YES; POSITIVE MORPHOLOGY NO
[2018-07-21 13:53] LABS: Anion Gap 12 (5-15); BUN 18 mg/dL (7-18); BUN/Creat Ratio 17.5 RATIO (10-20); Calcium,Total 8.5 mg/dL (8.5-10.1); Chloride 97 mmol/L (98-107); Creatinine, Serum 1.03 mg/dL (0.70-1.30); EST Glomerular Filtration Rate 77 mL/min (>60); Est Glom Filt Rate - Afr Amer 93 mL/min (>60); Estimated Creatinine Clearance 69.17 ml/min; Glucose 336 mg/dL (74-106); Sodium Level 135 mmol/L (136-145)
[2018-07-21] MEDS: levoFLOXacin IV 750 MG/150 ML BAG 100 MG IV (14:54)
[2018-07-21 16:26] LABS: M R Staph aureus DNA By PCR Negative (Negative); Probe Check PASS; Specimen Processing Control PASS
[2018-07-21] MEDS: Acetaminophen 325 MG Tablet 650 MG PO ×2 (16:41→22:49)
--- NOTE | 2018-07-21 17:21 | NURSING ---
[facility] notified for STAT ABG's.
[2018-07-21] MEDS: Metoprolol Tartrate 50 MG Tablet PO (17:24)
[2018-07-21 17:46] LABS: Allen Test POS; Base Excess 2 mmol/L (-2 to +2); Blood Gas Specimen Type ART; FI02 50; PO2 50 mmHG (75-100); SITE L Brachial; SO2 88 % (95-99); Time Given 1741; Total Carbon Dioxide 27 mmol/L; pCO2 35.1 mmHg (35-45); pH 7.48 (7.35-7.45)
--- NOTE | 2018-07-21 17:50 | PCM.HOSP.N ---
Hospitalist Note Contacted by Dr. Perry and requested to assist with transfer given patient ongoing dyspnea with increased respiratory rate and hypoxia with increased oxygen needs up to now 6 L nasal cannula. Patient with influenza recently evaluated also by pulmonary, Dr. Ponce. ABG obtained and pH 7.48 with PO2 50%, discussed with respiratory therapy and requested BiPAP to be placed. Will transition patient to PCU stepdown status and plan to obtain repeat ABG in approximately [address] Ponce updated on patient change of care.
--- NOTE | 2018-07-21 18:01 | NURSING ---
Report called to Brigitte HENDRIX the receiving nurse.
--- NOTE | 2018-07-21 18:34 | NURSING ---
1819 transferred to PCU 109, at his side. [facility] ROGERS received pt. and placed him on bipap.
--- NOTE | 2018-07-21 18:47 | NURSING ---
received to pcu 109, a-fib hr 124, lungs diminished bases, on bi-pap per respiratory 55% pulse ox 90%
[2018-07-21 19:41] LABS: Allen Test POS; Base Excess 1 mmol/L (-2 to +2); Bicarbonate 24.6 mmol/L (22-26); Blood Gas Specimen Type ART; EPAP 8; FI02 55; IPAP 14; PO2 57 mmHG (75-100); RR 12; SITE R Radial; SO2 92 % (95-99); Total Carbon Dioxide 26 mmol/L; pCO2 32.5 mmHg (35-45); pH 7.49 (7.35-7.45)
[2018-07-21] MEDS: 0.9% NaCl Peripheral Flush Adult/Peds IV (21:00)
[2018-07-21] MEDS: Pravastatin 80 MG Tablet PO (22:47)
[2018-07-21] MEDS: traZODone 50 MG Tablet PO (22:47)
[2018-07-21] MEDS: Oseltamivir Phosphate 75 MG Capsule PO (22:48)
[2018-07-22] VITALS (45 sets, daily range): BP systolic 112–158; BP diastolic 56–93; PULSE 78–134; RESP 12–35; TEMP 35.8–36.8; O2SAT 75–96
[2018-07-22] MEDS: Ipratropium/Albuterol Sulfate 3 ML AMPUL.NEB INHALATION ×6 (03:45→22:47)
[2018-07-22] MEDS: 0.9% NaCl Peripheral Flush Adult/Peds IV ×2 (05:22→11:48)
--- NOTE | 2018-07-22 07:24 | PN_ITS ---
Patient Problems: Active and Suspected Problems (Last Reviewed 07/20/18 @ 21:39 by Joaquín Laughlin DO) Acute bronchitis (Acute) Influenza A (Acute) Constipation (Acute) Subjective: The patient was seen and examined at the bedside this morning. Events from the last 24 hours have been reviewed. Last evening, the patient required transfer to the progressive care unit due to the need to initiate BiPAP. The patient has been maintained on BiPAP 03/01 and currently has a 60% FiO2 requirement. Arterial blood gas obtained revealed a pH of 7.49 with a corresponding PO2 of 57. This morning, the patient reported relative intolerance to his current IPAP setting. Therefore, given that the patient's issue is primarily with oxygenation, he was transitioned to CPAP with a pressure support of 10 cm of water, which she appears to be tolerating better. I did explain to the patient that given his tenuous respiratory status, he will not be able to eat. Objective: The patient's most recent lab work, culture data and imaging studies have all been personally reviewed. Rapid influenza screen was positive for influenza A. Blood cultures are currently pending. Sputum culture is also pending. MRSA screen was negative. - Physical Exam General: Alert, Cooperative, - - Does not appear distressed on CPAP. HEENT: Atraumatic, PERRLA, Normocephalic Oral: No Gingival or Mucosal Lesions/ Ulcerations Neck: Supple, No Nodes, Trachea Midline Lungs: Diminished, - - Basilar rales present. No significant wheezing noted. Cardiovascular: Regular rate, Regular Rhythm, Normal S1, Normal S2, No murmurs Abdomen: Bowel Sounds Present, Soft, Non Tender, Non-Distended, Obese Extremities: No clubbing, No cyanosis, No edema Skin: No breakdown Musculoskeletal: No Tenderness to Palpation of Joints or Extremities Lymphatic: No Cervical, Supraclavicular, or Inguinal Adenopathy Neurological: Neuro grossly intact Psych/Mental Status: Normal Affect, Appropriate Vital Signs Temp Pulse Resp BP Pulse Ox 36.1 C L 92 24 H 145/85 H 93 07/22/18 07:00 07/22/18 07:09 07/22/18 07:09 07/22/18 07:00 07/22/18 07:09 Oxygen Flow Rate (L/min) 8 Oxygen Delivery Method Bi-pap Weight: 253 lb 8.505 oz Body Mass Index (BMI) 38.6 Intake and Output for Last 24 Hours 07/20/18 07/21/18 07/22/18 23:59 23:59 23:59 Intake Total 1304 / 1304 640 / 640 Output Total 350 / 350 Balance 954 / 954 640 / 640 Microbiology Past 72 Hours 07/21/18 11:25 Gram Stain - Final Sputum, Expectorated/Coughed 07/20/18 19:00 Influenza Types A,B Direct FA (MERY) - Final Mucosa - Nasopharyngeal Influenzae A Laboratory Tests Past 24 Hrs 07/21/18 07/21/18 07/21/18 13:15 13:15 14:40 WBC 11.9 H RBC 4.92 Hgb 15.5 Hct 45.5 MCV 92.5 MCH 31.5 MCHC 34.1 RDW 13.8 RDW Differential 46.1 H Plt Count 143 L MPV 11.1 Immature Gran % (Auto) 0.100 Neut % (Auto) 94.3 H Lymph % (Auto) 4.4 L [place] % (Auto) 1.2 Eos % (Auto) 0.0 Baso % (Auto) 0.0 Absolute Neuts (auto) 11.3 H Absolute Lymphs (auto) 0.52 L Total Counted Not Reportable Specimen Type Sample Site pH Bicarbonate Actual POC Total CO2 Base Excess O2 Saturation O2 % ABG pCO2 ABG pO2 Mir Test Respiration Rate O2 Delivery Device EPAP IPAP Blood Gas Notified Whom Blood Gas Notified Time Sodium 135 L Potassium 4.0 Chloride 97 L Carbon Dioxide 26.0 Anion Gap 12 BUN 18 Creatinine 1.03 Estim Creat Clear Calc 69.17 Est GFR (MDRD) Af Amer 93 Est GFR (MDRD) Non-Af 77 BUN/Creatinine Ratio 17.5 Glucose 336 H Calcium 8.5 MRSA (PCR) Negative 07/21/18 07/21/18 17:43 19:33 WBC RBC Hgb Hct MCV MCH MCHC RDW RDW Differential Plt Count MPV Immature Gran % (Auto) Neut % (Auto) Lymph % (Auto) [place] % (Auto) Eos % (Auto) Baso % (Auto) Absolute Neuts (auto) Absolute Lymphs (auto) Total Counted Specimen Type ART ART Sample Site L Brachial R Radial pH 7.48 H 7.49 H Bicarbonate Actual 26.0 24.6 POC Total CO2 27 26 Base Excess 2 1 O2 Saturation 88 L 92 L O2 % 50 55 ABG pCO2 35.1 32.5 L ABG pO2 50 L 57 L Mir Test POS POS Respiration Rate 12 O2 Delivery Device Vent Mask Bi / C PAP EPAP 8 IPAP 14 Blood Gas Notified Whom HOSP HOSP Blood Gas Notified Time 1741 Sodium Potassium Chloride Carbon Dioxide Anion Gap BUN Creatinine Estim Creat Clear Calc Est GFR (MDRD) Af Amer Est GFR (MDRD) Non-Af BUN/Creatinine Ratio Glucose Calcium MRSA (PCR) Clinical Impression(s) from Imaging Studies KUB X-Ray 07/20/18 18:41 IMPRESSION: No evidence of obstruction or perforation. at 2003 Reported and signed by: Salinas Noriega MD Electronically Signed: Salinas Noriega, at 20:02 EST Tel , Service support , Chest X-Ray 07/20/18 19:30 IMPRESSION: No radiographic evidence of acute cardiopulmonary disease. at 2003 Reported and signed by: Salinas Noriega MD Electronically Signed: Salinas Noriega, at 20:02 EST Tel , Service support , Abdomen X-Ray 07/21/18 11:07 IMPRESSION: Diffuse distention of bowel most likely ileus. Distal colonic obstruction not likely but possible. at 0143 Reported and signed by: Salinas Noriega MD Electronically Signed: Salinas Noriega, at 1:42 EST Tel , Service support , Medical Necessity - Tobacco Use Smoking Status: Former smoker Tobacco Use: Non-smoker Assessment/Plan All Active Problems (Last Reviewed 07/20/18 @ 21:39 by Joaquín Jopperi, DO) Acute bronchitis (Acute) Influenza A (Acute) Constipation (Acute) Paroxysmal atrial fibrillation (Acute) Hyperlipidemia (Acute) RECOMMENDATIONS: 1. Transition patient from BiPAP to CPAP with a pressure support of 10 cm of water. 2. Patient to remain n.p.o. for now. 3. Obtain repeat plain film chest x-ray. 4. Continue antibiotics and Tamiflu. 5. Continue scheduled bronchodilators and IV steroids. 6. Wean FiO2 to maintain oxygen saturations at or above 90%. IMPRESSIONS: 1. Acute hypoxemic respiratory failure secondary to influenza A infection The patient has a questionable baseline history of COPD. He was seen in the pulmonary medicine clinic 1 year ago, at which time, pulmonary function studies were ordered. However, the patient never followed up. At the current time, the patient's initial plain film chest x-ray revealed no acute cardiopulmonary process. Given how tenuous his respiratory status is at the current time, he will be continued on antibiotics and Tamiflu as ordered. He has been transition from BiPAP to CPAP this morning. Will obtain plain film chest x-ray. If his lung hein remain grossly clear as per previous, I would recommend obtaining a CTA chest to evaluate for the presence of PE. Continue scheduled bronchodilators and IV steroids as ordered. Wean supplemental oxygen as tolerated. 2. Known history of pulmonary nodules The patient is actually past due for a repeat CT chest due to his previously identified pulmonary nodules in March 2017. 3. Obstructive sleep apnea The patient is currently noncompliant with the use of nocturnal noninvasive positive pressure ventilation. 4. Rheumatoid arthritis/atrial fibrillation status post ablation/coronary artery disease/tobacco dependency currently in remission Complicates care, management, recovery and prognosis. Continue home medications as indicated. This note was generated with [employer] dictation software. It may contain incorrect words, spelling, and punctuation that were not noted in checking the note before signing. Code Visit Inpatient E&M: 11448 [facility] Hosp L3
[2018-07-22] MEDS: Folic Acid 1 MG Tablet PO (09:35)
[2018-07-22] MEDS: Metoprolol(XL)Succ 50 MG Tablet PO (09:35)
[2018-07-22] MEDS: Aspirin E.C. 81 MG Tablet PO (09:36)
[2018-07-22] MEDS: Tamsulosin HCl 0.4 MG Capsule PO (09:36)
[2018-07-22] MEDS: Oseltamivir Phosphate 75 MG Capsule PO ×2 (09:37→21:38)
[2018-07-22] MEDS: Enoxaparin 40 MG/0.4 ML Syringe SC (09:37)
--- NOTE | 2018-07-22 09:37 | RAD_ITS ---
STUDY: X-RAY CHEST REASON FOR EXAM: Male, 63 years old. Shortness of breath. TECHNIQUE: PA and lateral views of the chest. COMPARISON: 20 July 2018. FINDINGS: There is demonstrated multifocal airspace disease within the basilar segment of the right upper lobe and mid left lung, There is no demonstrated pleural abnormality. Normal size heart. Normal mediastinum and noelle. Normal visualized pulmonary arteries. Normal visualized aortic arch and descending thoracic aorta. Normal visualized thoracic spine. Normal visualized ribs, clavicles, and shoulders. There is no demonstrated abnormality of the visualized soft tissue structures of the upper abdomen. RAD/Chest 1 View (Portable) IMPRESSION: Findings concerning for multifocal pneumonia in the appropriate clinical setting with underlying alveolar edema not completely excluded. Recommend follow-up imaging in 4-6 weeks after appropriate treatment. Electronically Signed: Pacheco Galo DO at 9:56 EST , Service support ,
--- NOTE | 2018-07-22 10:03 | PCM.PN.HOSP ---
Patient Problems: Active and Suspected Problems (Last Reviewed 07/20/18 @ 21:39 by Joaquín Laughlin DO) Acute bronchitis (Acute) Influenza A (Acute) Constipation (Acute) Vitals/I&O's: Vital Signs Temp Pulse Resp BP Pulse Ox 97.9 F 79 28 H 145/78 H 92 07/22/18 09:00 07/22/18 09:35 07/22/18 09:35 07/22/18 09:35 07/22/18 09:35 Oxygen Flow Rate (L/min) 8 Oxygen Delivery Method Bi-pap Weight: 253 lb 8.505 oz Body Mass Index (BMI) 38.6 Intake and Output for Last 24 Hours 07/20/18 07/21/18 07/22/18 23:59 23:59 23:59 Intake Total 1304 / 1304 640 / 640 Output Total 350 / 350 Balance 954 / 954 640 / 640 Microbiology Past 72 Hours 07/21/18 11:25 Sputum, Expectorated/Coughed Gram Stain - Final 07/20/18 19:00 Mucosa - Nasopharyngeal Influenza Types A,B Direct FA (MERY) - Final Influenzae A Laboratory Results 07/21/18 13:15: WBC 11.9 H, RBC 4.92, Hgb 15.5, Hct 45.5, MCV 92.5, MCH 31.5, MCHC 34.1, RDW 13.8, RDW Differential 46.1 H, Plt Count 143 L, MPV 11.1, Immature Gran % (Auto) 0.100, Neut % (Auto) 94.3 H, Lymph % (Auto) 4.4 L, [place] % (Auto) 1.2, Eos % (Auto) 0.0, Baso % (Auto) 0.0, Absolute Neuts (auto) 11.3 H, Absolute Lymphs (auto) 0.52 L, Total Counted Not Reportable 07/21/18 13:15: Sodium 135 L, Potassium 4.0, Chloride 97 L, Carbon Dioxide 26.0, Anion Gap 12, BUN 18, Creatinine 1.03, Estim Creat Clear Calc 69.17, Est GFR (MDRD) Af Amer 93, Est GFR (MDRD) Non-Af 77, BUN/Creatinine Ratio 17.5, Glucose 336 H, Calcium 8.5 07/21/18 14:40: MRSA (PCR) Negative 07/21/18 17:43: Specimen Type ART, Sample Site L Brachial, pH 7.48 H, Bicarbonate Actual 26.0, POC Total CO2 27, Base Excess 2, O2 Saturation 88 L, O2 % 50, ABG pCO2 35.1, ABG pO2 50 L, Mir Test POS, O2 Delivery Device Vent Mask, Blood Gas Notified Whom DINH RIOS, Blood Gas Notified Time 1741 07/21/18 19:33: Specimen Type ART, Sample Site R Radial, pH 7.49 H, Bicarbonate Actual 24.6, POC Total CO2 26, Base Excess 1, O2 Saturation 92 L, O2 % 55, ABG pCO2 32.5 L, ABG pO2 57 L, Mir Test POS, Respiration Rate 12, O2 Delivery Device Bi / C PAP, EPAP 8, IPAP 14, Blood Gas Notified Whom [facility] Current Medications Acetaminophen (Tylenol) 650 mg PO Q6H PRN PRN PRN Reason: Mild Pain (1-3)/Temp > 100.7 F Last Admin: 07/21/18 22:49 Dose: 650 mg Albuterol Sulfate (Ventolin Aerosols) 2.5 mg INHALATION Q2H PRN PRN PRN Reason: SHORTNESS OF BREATH Albuterol/Ipratropium (Duoneb) 3 ml INHALATION Q4H.RT [facility] Last Admin: 07/22/18 07:08 Dose: 3 ml Aspirin (Ecotrin) 81 mg PO DAILY [facility] Last Admin: 07/22/18 09:36 Dose: 81 mg Enoxaparin Sodium (Lovenox) 40 mg SC DAILY@1000 [facility] Last Admin: 07/22/18 09:37 Dose: 40 mg [facility] Last Admin: 07/22/18 09:35 Dose: 1 mg Guaifenesin/Codeine Phosphate (Robitussin Ac) 10 ml PO Q6H PRN PRN PRN Reason: couging fit Last Admin: 07/20/18 23:37 Dose: 10 ml Piperacillin Sod/Tazobactam (Sod 4.5 gm/ Sodium Chloride) 100 mls @ 200 mls/hr IV X1 ONE Stop: 07/22/18 10:30 Piperacillin Sod/Tazobactam (Sod 3.375 gm/ Sodium Chloride) 50 mls @ 12.5 mls/hr IV Q8 [facility] Vancomycin IV Pharmacy to Dose (1 ea/ Sodium Chloride) 500 mls @ 250 mls/hr IV DAILY [facility]; Protocol Magnesium Hydroxide (Milk Of Magnesia) 30 ml PO DAILY PRN PRN PRN Reason: Constipation Last Admin: 07/21/18 12:40 Dose: 30 ml Methylprednisolone (Solu-Medrol) 40 mg IV Q8 [facility] Last Admin: 07/22/18 05:22 Dose: 40 mg Metoprolol Succinate (Toprol Xl (Beta Patricia)) 50 mg PO DAILY [facility] Last Admin: 07/22/18 09:35 Dose: 50 mg Nutritional Formula (Lactose Free) (Ensure Enlive) 120 ml PO 4X/DAY [facility] Last Admin: 07/22/18 09:38 Dose: 120 ml Ondansetron HCl (Zofran) 4 mg IV Q8H PRN PRN PRN Reason: NAUSEA Oseltamivir Phosphate (Tamiflu) 75 mg PO BID [facility] Stop: 07/26/18 10:01 Last Admin: 07/22/18 09:37 Dose: 75 mg Polyethylene Glycol (Miralax) 17 gm PO DAILY [facility] Last Admin: 07/22/18 09:37 Dose: Not Given Pravastatin Sodium (Pravachol) 80 mg PO QHS [facility] Last Admin: 07/21/18 22:47 Dose: 80 mg Sodium Chloride () 5 - 15 ml IV UD PRN PRN Reason: SALINE FLUSH Last Admin: 07/22/18 05:22 Dose: 10 ml Tamsulosin HCl (Flomax) 0.4 mg PO DAILY [facility] Last Admin: 07/22/18 09:36 Dose: 0.4 mg Trazodone HCl (Desyrel) 50 mg PO QHS [facility] Last Admin: 07/21/18 22:47 Dose: 50 mg Medical Necessity - Tobacco Use Smoking Status: Former smoker Tobacco Use: Non-smoker Assessment/Plan All Active Problems (Last Reviewed 07/20/18 @ 21:39 by Joaquín Laughlin DO) Acute bronchitis (Acute) Influenza A (Acute) Constipation (Acute) Paroxysmal atrial fibrillation (Acute) Hyperlipidemia (Acute)
--- NOTE | 2018-07-22 12:51 | PCM.RX.CS ---
Consult Pharmacy has been consulted to manage selected antiobiotic: Vancomycin Type of Consult: New start Suspected Infection: Other Labs: Sodium 135 mmol/L (136-145) L 07/21/18 13:15 Potassium 4.0 mmol/L (3.5-5.1) 07/21/18 13:15 Chloride 97 mmol/L (98-107) L 07/21/18 13:15 Carbon Dioxide 26.0 mmol/L (21.0-32.0) 07/21/18 13:15 Anion Gap 12 (5-15) 07/21/18 13:15 BUN 18 mg/dL (7-18) 07/21/18 13:15 Creatinine 1.03 mg/dL (0.70-1.30) 07/21/18 13:15 Est GFR (MDRD) Af Amer 93 mL/min (>60) 07/21/18 13:15 Est GFR (MDRD) Non-Af 77 mL/min (>60) 07/21/18 13:15 BUN/Creatinine Ratio 17.5 RATIO (10-20) 07/21/18 13:15 Glucose 336 mg/dL (74-106) H 07/21/18 13:15 Microbiology: Microbiology 07/21/18 11:25 Sputum, Expectorated/Coughed Gram Stain - Final 07/21/18 11:25 Sputum, Expectorated/Coughed Respiratory Culture - Preliminary Appears to be normal respiratory laverne. Further studies to follow. 07/20/18 19:00 Mucosa - Nasopharyngeal Influenza Types A,B Direct FA (MERY) - Final Influenzae A Weight used for dosin kg Estimated Creatinine Clearance: 69 ML/MIN Goal Trough: 10-15 mcg/mL Pharmacy Plan for Drug Dosing: Give initial dose of 1750mg IV x1, then continue with 1000mg IV q12h. Obtain a trough before the 4th dose. Pharmacy Service will continue to monitor and adjust dosing as required. Follow-Up Labs: Trough Vancomycin Labs to be done on [date and time ordered]: 07/24/18 00:30
--- NOTE | 2018-07-22 12:58 | NURSING ---
patient taken off of bipap to try to eat. had a couple bites soup and sips of garima genesis was on high o2 at 12 to start had to increase to 15l high flow o2 was off for 7 min was starting to go to 86% on 15l high flow
--- NOTE | 2018-07-22 14:30 | PCM.PROGNOTE ---
<Janett Taylor - Last Filed: 07/22/18 14:46> Patient Problems: Active and Suspected Problems (Last Reviewed 07/20/18 @ 21:39 by Joaquín Laughlin DO) Acute bronchitis (Acute) Influenza A (Acute) Constipation (Acute) Subjective: Patient seen and examined. Tolerated BiPAP throughout the night. Denies fever, chills. Denies cough, shortness of breath. - Physical Exam General: Alert, Oriented x3, Cooperative HEENT: Atraumatic, PERRLA, EOMI, Normocephalic Neck: Supple, No JVD, Negative Carotid Bruits Lungs: Diminished, Rales Cardiovascular: Regular rate, Regular Rhythm, Normal S1, Normal S2, No murmurs Abdomen: Bowel Sounds Present, Soft, Non Tender, Non-Distended, Obese Extremities: No clubbing, No cyanosis, No edema, Capillary Refill Less than 3 Seconds Skin: No rashes, No breakdown Musculoskeletal: No Tenderness to Palpation of Joints or Extremities Neurological: Cranial nerves II-XII grossly intact, Neuro grossly intact Psych/Mental Status: Normal Affect, Appropriate Vital Signs Temp Pulse Resp BP Pulse Ox 97.9 F 89 26 H 152/79 H 91 07/22/18 13:00 07/22/18 13:00 07/22/18 13:00 07/22/18 13:00 07/22/18 13:00 Oxygen Flow Rate (L/min) 15 Oxygen Delivery Method Bi-pap Weight: 253 lb 8.505 oz Body Mass Index (BMI) 38.6 Intake and Output for Last 24 Hours 07/20/18 07/21/18 07/22/18 23:59 23:59 23:59 Intake Total 1304 / 1304 1131 / 1131 Output Total 350 / 350 900 / 900 Balance 954 / 954 231 / 231 Microbiology Past 72 Hours 07/21/18 11:25 Gram Stain - Final Sputum, Expectorated/Coughed Respiratory Culture - Preliminary Appears to be normal respiratory laverne. Further studies to follow. 07/20/18 19:00 Influenza Types A,B Direct FA (MERY) - Final Mucosa - Nasopharyngeal Influenzae A Laboratory Tests Past 24 Hrs 07/21/18 07/21/18 07/21/18 13:15 14:40 17:43 Total Counted Not Reportable Specimen Type ART Sample Site L Brachial pH 7.48 H Bicarbonate Actual 26.0 POC Total CO2 27 Base Excess 2 O2 Saturation 88 L O2 % 50 ABG pCO2 35.1 ABG pO2 50 L Mir Test POS Respiration Rate O2 Delivery Device Vent Mask EPAP IPAP Blood Gas Notified Whom [facility] Blood Gas Notified Time 1741 MRSA (PCR) Negative 07/21/18 19:33 Total Counted Specimen Type ART Sample Site R Radial pH 7.49 H Bicarbonate Actual 24.6 POC Total CO2 26 Base Excess 1 O2 Saturation 92 L O2 % 55 ABG pCO2 32.5 L ABG pO2 57 L Mir Test POS Respiration Rate 12 O2 Delivery Device Bi / C PAP EPAP 8 IPAP 14 Blood Gas Notified Whom [facility] Blood Gas Notified Time MRSA (PCR) Medical Necessity - Tobacco Use Smoking Status: Former smoker Tobacco Use: Non-smoker Assessment/Plan All Active Problems (Last Reviewed 07/20/18 @ 21:39 by Joaquín Lauglhin DO) Acute bronchitis (Acute) Influenza A (Acute) Constipation (Acute) Paroxysmal atrial fibrillation (Acute) Hyperlipidemia (Acute) 1. Acute hypoxic respiratory failure secondary to influenza A and multifocal pneumonia-pulmonary following. Patient has a questionable history of COPD. Patient tolerated BiPAP overnight. Transitioned to CPAP. Not able to tolerate high flow nasal cannula. Chest x-ray this morning with concern for multifocal pneumonia. Patient placed on IV Zosyn and IV vancomycin. Continue Tamiflu regimen. IV steroids. Albuterol and DuoNeb aerosols. Obtain sputum for culture. MRSA PCR negative. Obtain CTA of chest. 2. Obstructive sleep apnea-noncompliant with CPAP. 3. Chronic pulmonary nodules-patient has failed outpatient follow-up with pulmonary medicine. He is overdue to have repeat CT of chest. 4. Constipation-KUB 07/21/2018 showed distention of bowel. Continue bowel regimen. Encourage ambulation. Patient passing flatus. 5. History of chronic atrial for ablation status post ablation 6. CAD status post PCI-continue aspirin, statin, metoprolol. 7. Rheumatoid arthritis-continue methotrexate regimen. 8. BPH-continue Flomax regimen. 9. Obesity-encouraged diet lifestyle modifications. DVT prophylaxis-Lovenox subcu This patient was seen by AMNA Baumann under the supervision of Dr. Bryson. <Filemon Bryson - Last Filed: 07/22/18 16:05> Subjective: Patient was put on BiPAP yesterday evening. PCO2 does not show high CO2, ABG 7.48/35/50 at 50% FiO2. Patient was put on BiPAP and repeat ABG was 7.49/32/57 suggestive of respiratory alkalosis patient was seen by tool and die manager today and changed BiPAP to CPAP. Repeat chest x-ray was done and shows evolving alveolar consolidation in both right mid lung and left upper lobe. Subsequently, antibiotic spectrum was brought into vancomycin and Zosyn. Discussed with the tool and die manager. Patient overall feeling little better than yesterday. - Physical Exam General: Alert, Oriented x3, Cooperative HEENT: Atraumatic, PERRLA, EOMI, Normocephalic Neck: Supple, No JVD, Negative Carotid Bruits Lungs: Diminished, Rales, Short of Breath, Tachypneic, Using Accessory Muscles, - - On CPAP Cardiovascular: Regular rate, Regular Rhythm, Normal S1, Normal S2, No murmurs Abdomen: Soft, Non Tender, Non-Distended, Obese Extremities: No clubbing, No cyanosis, No edema, Capillary Refill Less than 3 Seconds Skin: No rashes, No breakdown Musculoskeletal: No Tenderness to Palpation of Joints or Extremities, Arthritic Changes Neurological: Cranial nerves II-XII grossly intact, Deep Tendon Reflexes 2+/4 and Symmetrical, Neuro grossly intact Psych/Mental Status: Normal Affect, Appropriate Vital Signs Temp Pulse Resp BP Pulse Ox 97.8 F 91 30 H 134/88 H 91 07/22/18 15:00 07/22/18 15:00 07/22/18 15:00 07/22/18 15:00 07/22/18 15:00 Oxygen Flow Rate (L/min) 15 Oxygen Delivery Method Bi-pap Weight: 253 lb 8.505 oz Body Mass Index (BMI) 38.6 Intake and Output for Last 24 Hours 07/20/18 07/21/18 07/22/18 23:59 23:59 23:59 Intake Total 1304 / 1304 1131 / 1131 Output Total 350 / 350 1200 / 1200 Balance 954 / 954 -69 / -69 Microbiology Past 72 Hours 07/21/18 11:25 Gram Stain - Final Sputum, Expectorated/Coughed Respiratory Culture - Preliminary Appears to be normal respiratory laverne. Further studies to follow. 07/20/18 19:00 Influenza Types A,B Direct FA (MERY) - Final Mucosa - Nasopharyngeal Influenzae A Laboratory Tests Past 24 Hrs 07/21/18 07/21/18 07/21/18 14:40 17:43 19:33 Specimen Type ART ART Sample Site L Brachial R Radial pH 7.48 H 7.49 H Bicarbonate Actual 26.0 24.6 POC Total CO2 27 26 Base Excess 2 1 O2 Saturation 88 L 92 L O2 % 50 55 ABG pCO2 35.1 32.5 L ABG pO2 50 L 57 L Mir Test POS POS Respiration Rate 12 O2 Delivery Device Vent Mask Bi / C PAP EPAP 8 IPAP 14 Blood Gas Notified Whom [facility] Blood Gas Notified Time 174 MRSA (PCR) Negative Assessment/Plan This patient was seen in conjunction with [employer]IVE[employer] FARM MANAGERJanett. I have independently interviewed and examined the patient and reviewed pertinent history, examination findings, laboratory and plan of management. I have reviewed the note and agree with the documented findings with the few additional points. In brief, patient is 64-year-old gentleman with multiple comorbidities including history of 80 pack years of history, 2 packs daily for 40 years quit 2005, 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 fib status post ablation in [facility], coronary artery disease status PCI was admitted with with fever, chills, cough, shortness of breath for 6 days and found tachypnea and hypoxia in ED. He denies chronic cough. First x-ray did not show acute change. Patient was started on IV Levaquin yesterday and Tamiflu secondary to positive influenza A and follow-up chest x-ray shows evolving pneumonic consolidation in the right midlung and left upper lobe. Antibiotic spectrum broadened to IV Zosyn and vancomycin. Initial Gram stain of his sputum shows normal respiratory laverne. Blood cultures x2 are pending. Patient has acute hypoxic severe respiratory failure secondary to multifocal bilateral community-acquired pneumonia. On CPAP support I have discussed my assessment with Janett PRASAD and orders have been reviewed. Code Visit Inpatient E&M: 17136 Subs Hosp L3
--- NOTE | 2018-07-22 14:46 | PN_ITS ---
<Janett Taylor - Last Filed: 07/22/18 14:46> Patient Problems: Active and Suspected Problems (Last Reviewed 07/20/18 @ 21:39 by Joaquín Laughlin DO) Acute bronchitis (Acute) Influenza A (Acute) Constipation (Acute) Subjective: Patient seen and examined. Tolerated BiPAP throughout the night. Denies fever, chills. Denies cough, shortness of breath. - Physical Exam General: Alert, Oriented x3, Cooperative HEENT: Atraumatic, PERRLA, EOMI, Normocephalic Neck: Supple, No JVD, Negative Carotid Bruits Lungs: Diminished, Rales Cardiovascular: Regular rate, Regular Rhythm, Normal S1, Normal S2, No murmurs Abdomen: Bowel Sounds Present, Soft, Non Tender, Non-Distended, Obese Extremities: No clubbing, No cyanosis, No edema, Capillary Refill Less than 3 Seconds Skin: No rashes, No breakdown Musculoskeletal: No Tenderness to Palpation of Joints or Extremities Neurological: Cranial nerves II-XII grossly intact, Neuro grossly intact Psych/Mental Status: Normal Affect, Appropriate Vital Signs Temp Pulse Resp BP Pulse Ox 97.9 F 89 26 H 152/79 H 91 07/22/18 13:00 07/22/18 13:00 07/22/18 13:00 07/22/18 13:00 07/22/18 13:00 Oxygen Flow Rate (L/min) 15 Oxygen Delivery Method Bi-pap Weight: 253 lb 8.505 oz Body Mass Index (BMI) 38.6 Intake and Output for Last 24 Hours 07/20/18 07/21/18 07/22/18 23:59 23:59 23:59 Intake Total 1304 / 1304 1131 / 1131 Output Total 350 / 350 900 / 900 Balance 954 / 954 231 / 231 Microbiology Past 72 Hours 07/21/18 11:25 Gram Stain - Final Sputum, Expectorated/Coughed Respiratory Culture - Preliminary Appears to be normal respiratory laverne. Further studies to follow. 07/20/18 19:00 Influenza Types A,B Direct FA (MERY) - Final Mucosa - Nasopharyngeal Influenzae A Laboratory Tests Past 24 Hrs 07/21/18 07/21/18 07/21/18 13:15 14:40 17:43 Total Counted Not Reportable Specimen Type ART Sample Site L Brachial pH 7.48 H Bicarbonate Actual 26.0 POC Total CO2 27 Base Excess 2 O2 Saturation 88 L O2 % 50 ABG pCO2 35.1 ABG pO2 50 L Mir Test POS Respiration Rate O2 Delivery Device Vent Mask EPAP IPAP Blood Gas Notified Whom [facility] Blood Gas Notified Time 1741 MRSA (PCR) Negative 07/21/18 19:33 Total Counted Specimen Type ART Sample Site R Radial pH 7.49 H Bicarbonate Actual 24.6 POC Total CO2 26 Base Excess 1 O2 Saturation 92 L O2 % 55 ABG pCO2 32.5 L ABG pO2 57 L Mir Test POS Respiration Rate 12 O2 Delivery Device Bi / C PAP EPAP 8 IPAP 14 Blood Gas Notified Whom [facility] Blood Gas Notified Time MRSA (PCR) Medical Necessity - Tobacco Use Smoking Status: Former smoker Tobacco Use: Non-smoker Assessment/Plan All Active Problems (Last Reviewed 07/20/18 @ 21:39 by Joaquín Laughlin DO) Acute bronchitis (Acute) Influenza A (Acute) Constipation (Acute) Paroxysmal atrial fibrillation (Acute) Hyperlipidemia (Acute) 1. Acute hypoxic respiratory failure secondary to influenza A and multifocal pneumonia-pulmonary following. Patient has a questionable history of COPD. Patient tolerated BiPAP overnight. Transitioned to CPAP. Not able to tolerate high flow nasal cannula. Chest x-ray this morning with concern for multifocal pneumonia. Patient placed on IV Zosyn and IV vancomycin. Continue Tamiflu regimen. IV steroids. Albuterol and DuoNeb aerosols. Obtain sputum for culture. MRSA PCR negative. Obtain CTA of chest. 2. Obstructive sleep apnea-noncompliant with CPAP. 3. Chronic pulmonary nodules-patient has failed outpatient follow-up with pulmonary medicine. He is overdue to have repeat CT of chest. 4. Constipation-KUB 07/21/2018 showed distention of bowel. Continue bowel regimen. Encourage ambulation. Patient passing flatus. 5. History of chronic atrial for ablation status post ablation 6. CAD status post PCI-continue aspirin, statin, metoprolol. 7. Rheumatoid arthritis-continue methotrexate regimen. 8. BPH-continue Flomax regimen. 9. Obesity-encouraged diet lifestyle modifications. DVT prophylaxis-Lovenox subcu This patient was seen by AMNA Baumann under the supervision of Dr. Bryson. <Filemon Bryson - Last Filed: 07/22/18 16:05> Subjective: Patient was put on BiPAP yesterday evening. PCO2 does not show high CO2, ABG 7. 48/35/50 at 50% FiO2. Patient was put on BiPAP and repeat ABG was 7.49/32/57 suggestive of respiratory alkalosis patient was seen by commercial lines account executive today and changed BiPAP to CPAP. Repeat chest x-ray was done and shows evolving alveolar consolidation in both right mid lung and left upper lobe. Subsequently, antibiotic spectrum was brought into vancomycin and Zosyn. Discussed with the commercial lines account executive. Patient overall feeling little better than yesterday. - Physical Exam General: Alert, Oriented x3, Cooperative HEENT: Atraumatic, PERRLA, EOMI, Normocephalic Neck: Supple, No JVD, Negative Carotid Bruits Lungs: Diminished, Rales, Short of Breath, Tachypneic, Using Accessory Muscles, - - On CPAP Cardiovascular: Regular rate, Regular Rhythm, Normal S1, Normal S2, No murmurs Abdomen: Soft, Non Tender, Non-Distended, Obese Extremities: No clubbing, No cyanosis, No edema, Capillary Refill Less than 3 Seconds Skin: No rashes, No breakdown Musculoskeletal: No Tenderness to Palpation of Joints or Extremities, Arthritic Changes Neurological: Cranial nerves II-XII grossly intact, Deep Tendon Reflexes 2+/4 and Symmetrical, Neuro grossly intact Psych/Mental Status: Normal Affect, Appropriate Vital Signs Temp Pulse Resp BP Pulse Ox 97.8 F 91 30 H 134/88 H 91 07/22/18 15:00 07/22/18 15:00 07/22/18 15:00 07/22/18 15:00 07/22/18 15:00 Oxygen Flow Rate (L/min) 15 Oxygen Delivery Method Bi-pap Weight: 253 lb 8.505 oz Body Mass Index (BMI) 38.6 Intake and Output for Last 24 Hours 07/20/18 07/21/18 07/22/18 23:59 23:59 23:59 Intake Total 1304 / 1304 1131 / 1131 Output Total 350 / 350 1200 / 1200 Balance 954 / 954 -69 / -69 Microbiology Past 72 Hours 07/21/18 11:25 Gram Stain - Final Sputum, Expectorated/Coughed Respiratory Culture - Preliminary Appears to be normal respiratory laverne. Further studies to follow. 07/20/18 19:00 Influenza Types A,B Direct FA (MERY) - Final Mucosa - Nasopharyngeal Influenzae A Laboratory Tests Past 24 Hrs 07/21/18 07/21/18 07/21/18 14:40 17:43 19:33 Specimen Type ART ART Sample Site L Brachial R Radial pH 7.48 H 7.49 H Bicarbonate Actual 26.0 24.6 POC Total CO2 27 26 Base Excess 2 1 O2 Saturation 88 L 92 L O2 % 50 55 ABG pCO2 35.1 32.5 L ABG pO2 50 L 57 L Mir Test POS POS Respiration Rate 12 O2 Delivery Device Vent Mask Bi / C PAP EPAP 8 IPAP 14 Blood Gas Notified Whom [facility] Blood Gas Notified Time 174 MRSA (PCR) Negative Assessment/Plan This patient was seen in conjunction with VASC TECHJanett. I have independently interviewed and examined the patient and reviewed pertinent history, examination findings, laboratory and plan of management. I have reviewed the note and agree with the documented findings with the few additional points. In brief, patient is 64-year-old gentleman with multiple comorbidities including history of 80 pack years of history, 2 packs daily for 40 years quit 2005, 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 fib status post ablation in [facility], coronary artery disease status PCI was admitted with with fever, chills, cough, shortness of breath for 6 days and found tachypnea and hypoxia in ED. He denies chronic cough. First x-ray did not show acute change. Patient was started on IV Levaquin yesterday and Tamiflu secondary to positive influenza A and follow-up chest x-ray shows evolving pneumonic consolidation in the right midlung and left upper lobe. Antibiotic spectrum broadened to IV Zosyn and vancomycin. Initial Gram stain of his sputum shows normal respiratory laverne. Blood cultures x2 are pending. Patient has acute hypoxic severe respiratory failure secondary to multifocal bilateral community-acquired pneumonia. On CPAP support I have discussed my assessment with Janett PRASAD and orders have been reviewed. Code Visit Inpatient E&M: 66995 Subs Hosp L3
[2018-07-22] MEDS: oxyCODONE 5 MG Tablet PO (15:53)
--- NOTE | 2018-07-22 17:51 | CT_ITS ---
HISTORY: HYPOXIA, PNEUMONIA TECHNIQUE: Helically acquired images were obtained of the chest following IV contrast as per pulmonary angiogram protocol with 3D reconstructions. A radiation dose optimization technique was used for this scan. IV Contrast dosage and agent: 100 cc [id number] administered intravenously. COMPARISON: Chest radiograph earlier today and 07/20/18. FINDINGS: # of images incl. paperwork: [phone] No pulmonary embolus. 4.0 cm diameter ascending thoracic aortic aneurysm. No dissection or hemorrhage. Heart size within normal limits. Coronary artery atherosclerosis which is not well evaluated secondary to cardiac motion. No pericardial effusion. Moderate bilateral hilar adenopathy. No mediastinal adenopathy. Multifocal groundglass attenuation involving the majority of the lung parenchyma, with consolidation and air bronchograms in the mid lungs bilaterally. No endobronchial or endotracheal lesions. No pneumothorax or pleural effusion. No acute finding in the partially visible upper abdomen. CT/CTA Chest W/WO Contrast IMPRESSION: No pulmonary embolus. Multifocal bilateral airspace disease in the lungs similar to the most recent chest radiograph but increased compared to 07/20/18 compatible with multifocal pneumonia versus a noninfectious inflammatory pneumonitis. Small, 4.0 cm, ascending thoracic aortic aneurysm with no hemorrhage or dissection. Individualized dose optimization techniques were used for this CT. at 1927 Reported and signed by: Salinas Noriega MD Electronically Signed: Salinas Noriega, at 19:26 EST Tel , Service support ,
[2018-07-22] MEDS: Metoprolol Tartrate 5 MG/5 ML Vial IV (18:10)
--- NOTE | 2018-07-22 20:15 | NURSING ---
Called report to Sindy HENDRIX on ICU.
[2018-07-22 21:06] LABS: Allen Test POS; Base Excess 2 mmol/L (-2 to +2); Bicarbonate 26.3 mmol/L (22-26); Blood Gas Specimen Type ART; EPAP 12; FI02 85; PO2 72 mmHG (75-100); SITE R Radial; SO2 95 % (95-99); Time Given 2055; Total Carbon Dioxide 27 mmol/L; pCO2 36.7 mmHg (35-45); pH 7.46 (7.35-7.45)
[2018-07-22] MEDS: Pravastatin 80 MG Tablet PO (21:36)
[2018-07-22] MEDS: traZODone 50 MG Tablet PO (21:36)
[2018-07-23] VITALS (42 sets, daily range): BP systolic 130–158; BP diastolic 82–114; PULSE 100–128; RESP 18–85; TEMP 37.2; O2SAT 91–97
[2018-07-23] MEDS: Vancomycin IV 1,000 MG/200 ML BAG 200 MG IV ×2 (01:30→13:01)
[2018-07-23] MEDS: Ipratropium/Albuterol Sulfate 3 ML AMPUL.NEB INHALATION ×6 (03:49→22:20)
--- NOTE | 2018-07-23 06:53 | PCM.PN.INT ---
Subjective: The patient was seen and examined at the bedside this morning. Events from the last 24 hours have been reviewed. The patient is currently afebrile, hemodynamically stable and maintaining appropriate oxygen saturations on CPAP with an FiO2 requirement of 85%. The patient was transferred from the PCU last evening to the medical intensive care unit, given concerns for his tenuous respiratory status. Attempts to wean the patient from BiPAP this morning to high flow nasal cannula was unsuccessful due to the development of further hypoxemia. The patient's antibiotics were broadened yesterday, after a follow-up plain film chest x-ray revealed findings concerning for multifocal pneumonia. He is now receiving vancomycin and Zosyn. A CTA chest was also obtained last evening, which revealed no evidence for pulmonary embolism. There was again confirmation of multifocal bilateral airspace disease along with a small 4.0 cm ascending thoracic aortic aneurysm, without hemorrhage or dissection. The patient is currently documented to be overall net +1.5 L for the admission. Objective: The patient's most recent lab work, culture data and imaging studies have all been personally reviewed. Rapid influenza screen was positive for influenza A. Expectorated sputum culture appears to be normal respiratory laverne. Blood cultures have been unrevealing to date. General: - - Fatigued in appearance. Currently tolerating CPAP. HEENT: Atraumatic, PERRLA, Normocephalic Oral: Dry Mucosa Neck: Supple, No Nodes, Trachea Midline Lungs: Diminished, Tachypneic, - - Basilar rales noted. Cardiovascular: Normal S1, Normal S2, No murmurs, Tachycardic Abdomen: Bowel Sounds Present, Soft, Non Tender, Obese Extremities: No clubbing, No cyanosis, No edema Skin: No breakdown Musculoskeletal: No Tenderness to Palpation of Joints or Extremities Lymphatic: No Cervical, Supraclavicular, or Inguinal Adenopathy Neurological: Cranial nerves II-XII grossly intact, Neuro grossly intact Psych/Mental Status: Normal Affect, Appropriate Vital Signs Temp Pulse Resp BP Pulse Ox 36.6 C 114 H 19 H 144/98 H 94 07/22/18 20:00 07/23/18 05:00 07/23/18 05:00 07/23/18 05:00 07/23/18 05:00 Oxygen Flow Rate (L/min) 15 Oxygen Delivery Method CPAP Weight: 253 lb 15.56 oz Body Mass Index (BMI) 38.6 Intake and Output for Last 24 Hours 07/21/18 07/22/18 07/23/18 23:59 23:59 23:59 Intake Total 1304 / 1304 2451 / 2451 230.7 / 230.7 Output Total 350 / 350 1800 / 1800 300 / 300 Balance 954 / 954 651 / 651 -69.3 / -69.3 Labs (Last 48 Hours) 07/21/18 07/21/18 07/21/18 13:15 13:15 14:40 WBC 11.9 H RBC 4.92 Hgb 15.5 Hct 45.5 MCV 92.5 MCH 31.5 MCHC 34.1 RDW 13.8 RDW Differential 46.1 H Plt Count 143 L MPV 11.1 Immature Gran % (Auto) 0.100 Neut % (Auto) 94.3 H Lymph % (Auto) 4.4 L [place] % (Auto) 1.2 Eos % (Auto) 0.0 Baso % (Auto) 0.0 Absolute Neuts (auto) 11.3 H Absolute Lymphs (auto) 0.52 L Total Counted Not Reportable Specimen Type Sample Site pH Bicarbonate Actual POC Total CO2 Base Excess O2 Saturation O2 % ABG pCO2 ABG pO2 Mir Test Respiration Rate O2 Delivery Device EPAP IPAP Blood Gas Notified Whom Blood Gas Notified Time Sodium 135 L Potassium 4.0 Chloride 97 L Carbon Dioxide 26.0 Anion Gap 12 BUN 18 Creatinine 1.03 Estim Creat Clear Calc 69.17 Est GFR (MDRD) Af Amer 93 Est GFR (MDRD) Non-Af 77 BUN/Creatinine Ratio 17.5 Glucose 336 H Calcium 8.5 MRSA (PCR) Negative 07/21/18 07/21/18 07/22/18 17:43 19:33 21:00 WBC RBC Hgb Hct MCV MCH MCHC RDW RDW Differential Plt Count MPV Immature Gran % (Auto) Neut % (Auto) Lymph % (Auto) [place] % (Auto) Eos % (Auto) Baso % (Auto) Absolute Neuts (auto) Absolute Lymphs (auto) Total Counted Specimen Type ART ART ART Sample Site L Brachial R Radial R Radial pH 7.48 H 7.49 H 7.46 H Bicarbonate Actual 26.0 24.6 26.3 H POC Total CO2 27 26 27 Base Excess 2 1 2 O2 Saturation 88 L 92 L 95 O2 % 50 55 85 ABG pCO2 35.1 32.5 L 36.7 ABG pO2 50 L 57 L 72 L Mir Test POS POS POS Respiration Rate 12 O2 Delivery Device Vent Mask Bi / C PAP Bi / C PAP EPAP 8 12 IPAP 14 Blood Gas Notified Whom HOSP HOSP HOSP Blood Gas Notified Time 1740 2054 Sodium Potassium Chloride Carbon Dioxide Anion Gap BUN Creatinine Estim Creat Clear Calc Est GFR (MDRD) Af Amer Est GFR (MDRD) Non-Af BUN/Creatinine Ratio Glucose Calcium MRSA (PCR) Microbiology 07/21/18 11:25 Sputum, Expectorated/Coughed Gram Stain - Final 07/21/18 11:25 Sputum, Expectorated/Coughed Respiratory Culture - Preliminary Appears to be normal respiratory laverne. Further studies to follow. Clinical Impression(s) from Imaging Studies KUB X-Ray 07/20/18 18:41 IMPRESSION: No evidence of obstruction or perforation. at 2003 Reported and signed by: Salinas Noriega MD Electronically Signed: Salinas Noriega, at 20:02 EST Tel , Service support , Chest X-Ray 07/20/18 19:30 IMPRESSION: No radiographic evidence of acute cardiopulmonary disease. at 2003 Reported and signed by: Salinas Noriega MD Electronically Signed: Salinas Noriega, at 20:02 EST Tel , Service support , Abdomen X-Ray 07/21/18 11:07 IMPRESSION: Diffuse distention of bowel most likely ileus. Distal colonic obstruction not likely but possible. at 0143 Reported and signed by: Salinas Noriega MD Electronically Signed: Salinas Noriega, at 1:42 EST Tel , Service support , Chest X-Ray 07/22/18 09:37 IMPRESSION: Findings concerning for multifocal pneumonia in the appropriate clinical setting with underlying alveolar edema not completely excluded. Recommend follow-up imaging in 4-6 weeks after appropriate treatment. Electronically Signed: Pacheco Galo DO at 9:56 EST , Service support , Chest CTA 07/22/18 17:51 IMPRESSION: No pulmonary embolus. Multifocal bilateral airspace disease in the lungs similar to the most recent chest radiograph but increased compared to 07/20/18 compatible with multifocal pneumonia versus a noninfectious inflammatory pneumonitis. Small, 4.0 cm, ascending thoracic aortic aneurysm with no hemorrhage or dissection. Individualized dose optimization techniques were used for this CT. at 1927 Reported and signed by: Salinas Noriega MD Electronically Signed: Salinas Noriega, at 19:26 EST Tel , Service support , Medical Necessity - Tobacco Use Smoking Status: Former smoker Tobacco Use: Non-smoker Assessment/Plan All Active Problems (Last Reviewed 07/20/18 @ 21:39 by Joaquín Laughlin DO) Acute bronchitis (Acute) Influenza A (Acute) Constipation (Acute) Paroxysmal atrial fibrillation (Acute) Hyperlipidemia (Acute) RECOMMENDATIONS: 1. Continue patient on noninvasive positive pressure ventilation and wean FiO2 as tolerated. 2. Patient to remain n.p.o. for now until respiratory status improves. 3. We will plan to start dextrose containing supplemental IV fluids today. 4. Continue broad-spectrum antimicrobials. 5. Continue scheduled bronchodilators and IV steroids. 6. Continue appropriate ICU prophylaxis IMPRESSIONS: 1. Acute hypoxemic respiratory failure secondary to influenza A infection and severe community-acquired pneumonia The patient has a questionable baseline history of COPD. He was seen in the pulmonary medicine clinic 1 year ago, at which time, pulmonary function studies were ordered. However, the patient never followed up. Although the patient was admitted to the hospital with influenza A and a plain film chest x-ray which was largely unremarkable, follow-up chest imaging subsequently revealed evidence of evolving multifocal pneumonia. The patient's respiratory status has steadily declined over the course of the last 24-48 hours. He is now essentially dependent on PAP therapy. Attempts to wean him from CPAP this morning was unsuccessful. He will be continued on broad-spectrum antibiotics accordingly. We will continue current supportive measures with scheduled bronchodilators and IV steroids as well. Continue to wean FiO2 to maintain an oxygen saturation at or above 90%. Supplemental IV fluid hydration will be started today, given the patient's n.p.o. status. If the patient does not begin to improve in the next 24 hours, I did discuss the possibility of intubation with him. 2. Known history of pulmonary nodules The patient is actually past due for a repeat CT chest due to his previously identified pulmonary nodules in March 2017. 3. Obstructive sleep apnea The patient is currently noncompliant with the use of nocturnal noninvasive positive pressure ventilation. 4. Rheumatoid arthritis/atrial fibrillation status post ablation/coronary artery disease/tobacco dependency currently in remission Complicates care, management, recovery and prognosis. Continue home medications as indicated. TIME: 38 minutes of critical care time, independent of procedures, was spent addressing the patient's acute hypoxemic respiratory failure, influenza A infection, severe community-acquired pneumonia, history of pulmonary nodules, obstructive sleep apnea, review of all data and collaboration with the care team. ([id number]) Code Visit 9xxxx: [id number] Critical care first hour
--- NOTE | 2018-07-23 06:58 | PN_ITS ---
Subjective: The patient was seen and examined at the bedside this morning. Events from the last 24 hours have been reviewed. The patient is currently afebrile, hemodynamically stable and maintaining appropriate oxygen saturations on CPAP with an FiO2 requirement of 85%. The patient was transferred from the PCU last evening to the medical intensive care unit, given concerns for his tenuous respiratory status. Attempts to wean the patient from BiPAP this morning to high flow nasal cannula was unsuccessful due to the development of further hypoxemia. The patient's antibiotics were broadened yesterday, after a follow- up plain film chest x-ray revealed findings concerning for multifocal pneumonia. He is now receiving vancomycin and Zosyn. A CTA chest was also obtained last evening, which revealed no evidence for pulmonary embolism. There was again confirmation of multifocal bilateral airspace disease along with a small 4.0 cm ascending thoracic aortic aneurysm, without hemorrhage or dissection. The patient is currently documented to be overall net +1.5 L for the admission. Objective: The patient's most recent lab work, culture data and imaging studies have all been personally reviewed. Rapid influenza screen was positive for influenza A. Expectorated sputum culture appears to be normal respiratory laverne. Blood cultures have been unrevealing to date. General: - - Fatigued in appearance. Currently tolerating CPAP. HEENT: Atraumatic, PERRLA, Normocephalic Oral: Dry Mucosa Neck: Supple, No Nodes, Trachea Midline Lungs: Diminished, Tachypneic, - - Basilar rales noted. Cardiovascular: Normal S1, Normal S2, No murmurs, Tachycardic Abdomen: Bowel Sounds Present, Soft, Non Tender, Obese Extremities: No clubbing, No cyanosis, No edema Skin: No breakdown Musculoskeletal: No Tenderness to Palpation of Joints or Extremities Lymphatic: No Cervical, Supraclavicular, or Inguinal Adenopathy Neurological: Cranial nerves II-XII grossly intact, Neuro grossly intact Psych/Mental Status: Normal Affect, Appropriate Vital Signs Temp Pulse Resp BP Pulse Ox 36.6 C 114 H 19 H 144/98 H 94 07/22/18 20:00 07/23/18 05:00 07/23/18 05:00 07/23/18 05:00 07/23/18 05:00 Oxygen Flow Rate (L/min) 15 Oxygen Delivery Method CPAP Weight: 253 lb 15.56 oz Body Mass Index (BMI) 38.6 Intake and Output for Last 24 Hours 07/21/18 07/22/18 07/23/18 23:59 23:59 23:59 Intake Total 1304 / 1304 2451 / 2451 230.7 / 230.7 Output Total 350 / 350 1800 / 1800 300 / 300 Balance 954 / 954 651 / 651 -69.3 / -69.3 Labs (Last 48 Hours) 07/21/18 07/21/18 07/21/18 13:15 13:15 14:40 WBC 11.9 H RBC 4.92 Hgb 15.5 Hct 45.5 MCV 92.5 MCH 31.5 MCHC 34.1 RDW 13.8 RDW Differential 46.1 H Plt Count 143 L MPV 11.1 Immature Gran % (Auto) 0.100 Neut % (Auto) 94.3 H Lymph % (Auto) 4.4 L [place] % (Auto) 1.2 Eos % (Auto) 0.0 Baso % (Auto) 0.0 Absolute Neuts (auto) 11.3 H Absolute Lymphs (auto) 0.52 L Total Counted Not Reportable Specimen Type Sample Site pH Bicarbonate Actual POC Total CO2 Base Excess O2 Saturation O2 % ABG pCO2 ABG pO2 Mir Test Respiration Rate O2 Delivery Device EPAP IPAP Blood Gas Notified Whom Blood Gas Notified Time Sodium 135 L Potassium 4.0 Chloride 97 L Carbon Dioxide 26.0 Anion Gap 12 BUN 18 Creatinine 1.03 Estim Creat Clear Calc 69.17 Est GFR (MDRD) Af Amer 93 Est GFR (MDRD) Non-Af 77 BUN/Creatinine Ratio 17.5 Glucose 336 H Calcium 8.5 MRSA (PCR) Negative 07/21/18 07/21/18 07/22/18 17:43 19:33 21:00 WBC RBC Hgb Hct MCV MCH MCHC RDW RDW Differential Plt Count MPV Immature Gran % (Auto) Neut % (Auto) Lymph % (Auto) [place] % (Auto) Eos % (Auto) Baso % (Auto) Absolute Neuts (auto) Absolute Lymphs (auto) Total Counted Specimen Type ART ART ART Sample Site L Brachial R Radial R Radial pH 7.48 H 7.49 H 7.46 H Bicarbonate Actual 26.0 24.6 26.3 H POC Total CO2 27 26 27 Base Excess 2 1 2 O2 Saturation 88 L 92 L 95 O2 % 50 55 85 ABG pCO2 35.1 32.5 L 36.7 ABG pO2 50 L 57 L 72 L Mir Test POS POS POS Respiration Rate 12 O2 Delivery Device Vent Mask Bi / C PAP Bi / C PAP EPAP 8 12 IPAP 14 Blood Gas Notified Whom HOSP HOSP HOSP Blood Gas Notified Time 1740 2054 Sodium Potassium Chloride Carbon Dioxide Anion Gap BUN Creatinine Estim Creat Clear Calc Est GFR (MDRD) Af Amer Est GFR (MDRD) Non-Af BUN/Creatinine Ratio Glucose Calcium MRSA (PCR) Microbiology 07/21/18 11:25 Sputum, Expectorated/Coughed Gram Stain - Final 07/21/18 11:25 Sputum, Expectorated/Coughed Respiratory Culture - Preliminary Appears to be normal respiratory laverne. Further studies to follow. Clinical Impression(s) from Imaging Studies KUB X-Ray 07/20/18 18:41 IMPRESSION: No evidence of obstruction or perforation. at 2003 Reported and signed by: Salinas Noriega MD Electronically Signed: Salinas Noriega, at 20:02 EST Tel , Service support , Chest X-Ray 07/20/18 19:30 IMPRESSION: No radiographic evidence of acute cardiopulmonary disease. at 2003 Reported and signed by: Salinas Noriega MD Electronically Signed: Salinas Noriega, at 20:02 EST Tel , Service support , Abdomen X-Ray 07/21/18 11:07 IMPRESSION: Diffuse distention of bowel most likely ileus. Distal colonic obstruction not likely but possible. at 0143 Reported and signed by: Salinas Noriega MD Electronically Signed: Salinas Noriega, at 1:42 EST Tel , Service support , Chest X-Ray 07/22/18 09:37 IMPRESSION: Findings concerning for multifocal pneumonia in the appropriate clinical setting with underlying alveolar edema not completely excluded. Recommend follow-up imaging in 4-6 weeks after appropriate treatment. Electronically Signed: Pacheco Galo DO at 9:56 EST , Service support , Chest CTA 07/22/18 17:51 IMPRESSION: No pulmonary embolus. Multifocal bilateral airspace disease in the lungs similar to the most recent chest radiograph but increased compared to 07/20/18 compatible with multifocal pneumonia versus a noninfectious inflammatory pneumonitis. Small, 4.0 cm, ascending thoracic aortic aneurysm with no hemorrhage or dissection. Individualized dose optimization techniques were used for this CT. at 1927 Reported and signed by: Salinas Noriega MD Electronically Signed: Salinas Noriega, at 19:26 EST Tel , Service support , Medical Necessity - Tobacco Use Smoking Status: Former smoker Tobacco Use: Non-smoker Assessment/Plan All Active Problems (Last Reviewed 07/20/18 @ 21:39 by Joaquín Laughlin DO) Acute bronchitis (Acute) Influenza A (Acute) Constipation (Acute) Paroxysmal atrial fibrillation (Acute) Hyperlipidemia (Acute) RECOMMENDATIONS: 1. Continue patient on noninvasive positive pressure ventilation and wean FiO2 as tolerated. 2. Patient to remain n.p.o. for now until respiratory status improves. 3. We will plan to start dextrose containing supplemental IV fluids today. 4. Continue broad-spectrum antimicrobials. 5. Continue scheduled bronchodilators and IV steroids. 6. Continue appropriate ICU prophylaxis IMPRESSIONS: 1. Acute hypoxemic respiratory failure secondary to influenza A infection and severe community-acquired pneumonia The patient has a questionable baseline history of COPD. He was seen in the pulmonary medicine clinic 1 year ago, at which time, pulmonary function studies were ordered. However, the patient never followed up. Although the patient was admitted to the hospital with influenza A and a plain film chest x-ray which was largely unremarkable, follow-up chest imaging subsequently revealed evidence of evolving multifocal pneumonia. The patient's respiratory status has steadily declined over the course of the last 24-48 hours. He is now essentially dependent on PAP therapy. Attempts to wean him from CPAP this morning was unsuccessful. He will be continued on broad-spectrum antibiotics accordingly. We will continue current supportive measures with scheduled bronchodilators and IV steroids as well. Continue to wean FiO2 to maintain an oxygen saturation at or above 90%. Supplemental IV fluid hydration will be started today, given the patient's n.p.o. status. If the patient does not begin to improve in the next 24 hours, I did discuss the possibility of intubation with him. 2. Known history of pulmonary nodules The patient is actually past due for a repeat CT chest due to his previously identified pulmonary nodules in March 2017. 3. Obstructive sleep apnea The patient is currently noncompliant with the use of nocturnal noninvasive positive pressure ventilation. 4. Rheumatoid arthritis/atrial fibrillation status post ablation/coronary artery disease/tobacco dependency currently in remission Complicates care, management, recovery and prognosis. Continue home medications as indicated. TIME: 38 minutes of critical care time, independent of procedures, was spent addressing the patient's acute hypoxemic respiratory failure, influenza A infection, severe community-acquired pneumonia, history of pulmonary nodules, obstructive sleep apnea, review of all data and collaboration with the care team. ([id number]) Code Visit 9xxxx: 74011 Critical care first hour
--- NOTE | 2018-07-23 08:05 | PN_ITS ---
Patient Problems: Active and Suspected Problems (Last Reviewed 07/20/18 @ 21:39 by Joaquín Laughlin DO) Acute bronchitis (Acute) Influenza A (Acute) Constipation (Acute) Subjective: The patient was transferred to ICU and yesterday evening when patient was not improving on CPAP and oxygen requirement went up to 85%. CT angiogram of chest was done which shows multifocal bilateral alveolar consolidation but no PE. No obvious fever or chills. Continued on IV vancomycin and Zosyn. Discussed with qm consultant. Currently on BiPAP support, FiO2 85%. Patient is tachycardic, heart rate in 120s possible from respiratory failure/intravascular fluid deficit Vitals/I&O's: Vital Signs Temp Pulse Resp BP Pulse Ox 97.9 F 124 H 32 H 131/82 H 95 07/22/18 20:00 07/23/18 07:54 07/23/18 07:54 07/23/18 07:00 07/23/18 07:52 Oxygen Flow Rate (L/min) 15 Oxygen Delivery Method Bi-pap Weight: 253 lb 15.56 oz Body Mass Index (BMI) 38.6 Intake and Output for Last 24 Hours 07/21/18 07/22/18 07/23/18 23:59 23:59 23:59 Intake Total 1304 / 1304 2451 / 2451 230.7 / 230.7 Output Total 350 / 350 1800 / 1800 300 / 300 Balance 954 / 954 651 / 651 -69.3 / -69.3 General: Alert, Oriented x3, Cooperative HEENT: Atraumatic, PERRLA, EOMI, Normocephalic Neck: Supple, No JVD, Negative Carotid Bruits Lungs: Diminished, Rales - Bilateral coarse rales present, Short of Breath, Tachypneic - Respiratory rate in 20s or 30s, Wheezes Cardiovascular: Regular Rhythm, Normal S1, Normal S2, No murmurs, Tachycardic Abdomen: Bowel Sounds Present, Soft, Non Tender, Non-Distended Extremities: No edema, Capillary Refill Less than 3 Seconds Skin: No rashes, No breakdown Musculoskeletal: No Tenderness to Palpation of Joints or Extremities, Arthritic Changes Lymphatic: No Cervical, Supraclavicular, or Inguinal Adenopathy Neurological: Cranial nerves II-XII grossly intact, Deep Tendon Reflexes 2+/4 and Symmetrical, Neuro grossly intact Psych/Mental Status: Normal Affect, Appropriate Microbiology Past 72 Hours 07/21/18 11:25 Sputum, Expectorated/Coughed Gram Stain - Final 07/21/18 11:25 Sputum, Expectorated/Coughed Respiratory Culture - Prelim inary Appears to be normal respiratory laverne. Further studies to follow. 07/20/18 19:00 Mucosa - Nasopharyngeal Influenza Types A,B Direct FA (MERY) - Final Influenzae A Laboratory Results 07/22/18 21:00: Specimen Type ART, Sample Site R Radial, pH 7.46 H, Bicarbonate Actual 26.3 H, POC Total CO2 27, Base Excess 2, O2 Saturation 95, O2 % 85, ABG pCO2 36.7, ABG pO2 72 L, Mir Test POS, O2 Delivery Device Bi / C PAP, EPAP 12, Blood Gas Notified Whom HOSP MD, Blood Gas Notified Time 2054 Current Medications Acetaminophen (Tylenol) 650 mg PO Q6H PRN PRN PRN Reason: Mild Pain (1-3)/Temp > 100.7 F Last Admin: 07/21/18 22:49 Dose: 650 mg Albuterol Sulfate (Ventolin Aerosols) 2.5 mg INHALATION Q2H PRN PRN PRN Reason: SHORTNESS OF BREATH Albuterol/Ipratropium (Duoneb) 3 ml INHALATION Q4H.RT [facility] Last Admin: 07/23/18 07:35 Dose: 3 ml Aspirin (Ecotrin) 81 mg PO DAILY [facility] Last Admin: 07/22/18 09:36 Dose: 81 mg Enoxaparin Sodium (Lovenox) 40 mg SC DAILY@1000 [facility] Last Admin: 07/22/18 09:37 Dose: 40 mg Folic Acid (Folic Acid) 1 [facility] Last Admin: 07/22/18 09:35 Dose: 1 mg Guaifenesin/Codeine Phosphate (Robitussin Ac) 10 ml PO Q6H PRN PRN PRN Reason: couging fit Last Admin: 07/20/18 23:37 Dose: 10 ml Piperacillin Sod/Tazobactam (Sod 3.375 gm/ Sodium Chloride) 50 mls @ 12.5 mls/hr IV Q8 [facility] Last Admin: 07/23/18 05:03 Dose: 12.5 mls/hr Vancomycin IV Pharmacy to Dose (1 ea/ Sodium Chloride) 500 mls @ 250 mls/hr IV DAILY [facility]; Protocol Vancomycin HCl (Vancomycin) 1,000 mg in 200 mls @ 200 mls/hr IV Q12H [facility] Last Admin: 07/23/18 01:30 Dose: 200 mls/hr Sodium Chloride () 250 mls @ 15 mls/hr IV .[id number] PRN PRN Reason: SALINE FLUSH Magnesium Hydroxide (Milk Of Magnesia) 30 ml PO DAILY PRN PRN PRN Reason: Constipation Last Admin: 07/21/18 12:40 Dose: 30 ml Methylprednisolone (Solu-Medrol) 40 mg IV Q8 [facility] Last Admin: 07/23/18 05:03 Dose: 40 mg Metoprolol Succinate (Toprol Xl (Beta Patricia)) 50 mg PO DAILY [facility] Last Admin: 07/22/18 09:35 Dose: 50 mg Nutritional Formula (Lactose Free) (Ensure Enlive) 120 ml PO 4X/DAY [facility] Last Admin: 07/22/18 21:33 Dose: Not Given Ondansetron HCl (Zofran) 4 mg IV Q8H PRN PRN PRN Reason: NAUSEA Oseltamivir Phosphate (Tamiflu) 75 mg PO BID [facility] Stop: 07/26/18 10:01 Last Admin: 07/22/18 21:38 Dose: 75 mg Oxycodone HCl (Oxyir) 5 mg PO Q6H PRN PRN PRN Reason: SEVERE PAIN (6-10/10) Last Admin: 07/22/18 15:53 Dose: 5 mg Polyethylene Glycol (Miralax) 17 gm PO DAILY [facility] Last Admin: 07/22/18 09:37 Dose: Not Given Pravastatin Sodium (Pravachol) 80 mg PO QHS [facility] Last Admin: 07/22/18 21:36 Dose: 80 mg Sodium Chloride () 5 - 15 ml IV UD PRN PRN Reason: SALINE FLUSH Last Admin: 07/22/18 11:48 Dose: 10 ml Tamsulosin HCl (Flomax) 0.4 mg PO DAILY [facility] Last Admin: 07/22/18 09:36 Dose: 0.4 mg Trazodone HCl (Desyrel) 50 mg PO QHS [facility] Last Admin: 07/22/18 21:36 Dose: 50 mg Medical Necessity - Tobacco Use Smoking Status: Former smoker Tobacco Use: Non-smoker Assessment/Plan All Active Problems (Last Reviewed 07/20/18 @ 21:39 by Joaquín Laughlin DO) Acute bronchitis (Acute) Influenza A (Acute) Constipation (Acute) Paroxysmal atrial fibrillation (Acute) Hyperlipidemia (Acute) The patient patient is 64-year-old gentleman with multiple comorbidities including history of 80 pack years of history, 2 packs daily for 40 years quit 2005, 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 fib status post ablation in [facility], coronary artery disease status PCI was admitted with with fever, chills, cough, shortness of breath for 6 days and found tachypnea and hypoxia in ED. He denies chronic cough. First x-ray did not show acute change. Patient was started on IV Levaquin yesterday and Tamiflu secondary to positive influenza A and follow-up chest x-ray shows evolving pneumonic consolidation in the right midlung and left upper lobe. Antibiotic spectrum broadened to IV Zosyn and vancomycin. Initial Gram stain of his sputum shows normal respiratory laverne. Blood cultures x2 are pending. Patient has acute hypoxic severe respiratory failure secondary to multifocal bilateral community-acquired pneumonia. 1. Acute hypoxic respiratory failure most probably due to multifocal bilateral committee acquired pneumonia secondary to influenza infection with possible questionable history of COPD: Patient was admitted to [facility] and then transferred to PCU subsequently to ICU for worsening respiratory failure. Patient on BiPAP 85% high and possible might need intubation although will try to avoid. Field Director note reviewed. Blood cultures negative for 48 hours. Sputum culture shows mixed normal respiratory laverne. Multifocal bilateral severe community-acquired pneumonia, most probably due to influenza A: On IV vancomycin and Zosyn. Rest as mentioned above. Patient requires high oxygen. Pulmonary consult reviewed and appreciated. Sputum culture and blood cultures x2 ordered. Chest x-ray does not show acute cardiopulmonary abnormality. Although chest x-ray is negative but based on fever, chills, hypoxia and change in his sputum, patient was started on Tamiflu and Levaquin. Continue bronchodilator, IV Solu-Medrol chest physiotherapy, Mucinex and incentive spirometry. 2. History of obstructive sleep apnea: Noncompliant with CPAP. 3. Constipation: Patient did not had bowel movement for 7 days. Subjective gaseous distention. Abdominal KUB x-ray ordered. Patient on laxatives and Dulcolax. 4. Sinus tachycardia with history of chronic A. fib with status post ablation, coronary artery disease status post PCI: Probably secondary to respiratory failure/intravascular fluid shift. On IV fluid. 5. Pulmonary nodules: Patient outpatient pulmonary clinic note reviewed. 6. Rheumatoid arthritis on methotrexate 7. DVT Prophylaxis on Lovenox: Discontinue if platelet count drops less than 50,000 or hemoglobin less than 8 g% This note was generated with [employer] network dictation software. Every effort was made to ensure accuracy, however computerized assistant casino shift manager mistakes may persist. Code Visit Inpatient E&M: 65232 [facility] L3
[2018-07-23 08:22] LABS: Anion Gap 10 (5-15); BUN 24 mg/dL (7-18); BUN/Creat Ratio 24.1 RATIO (10-20); Calcium,Total 8.4 mg/dL (8.5-10.1); Chloride 99 mmol/L (98-107); Creatinine, Serum 0.99 mg/dL (0.70-1.30); EST Glomerular Filtration Rate 80 mL/min (>60); Est Glom Filt Rate - Afr Amer 97 mL/min (>60); Estimated Creatinine Clearance 71.97 ml/min; Glucose 373 mg/dL (74-106); Sodium Level 135 mmol/L (136-145)
[2018-07-23 08:54] LABS: Absolute Lymphocyte Count 0.37 X10^3/ul (0.83-4.51); Absolute Neutrophil Count 9.6 X10^3/uL (2.0-7.7); Basophil# 0.02 X10^3/uL; Basophil% 0.2 % (0-1); Hematocrit 44.1 % (40-54); Hemoglobin 14.6 g/dl (13.0-16.5); Lymphocyte # 0.37 X10^3/ul (4.0); Lymphocyte % 3.6 % (19-41); Mean Corp Hgb Conc 33.1 g/gl (32-36); Mean Corpuscular Hgb 31.3 pg (27.0-32.0); Mean Corpuscular Volume 94.4 fL (80-94); Mean Platelet Vol. 11.2 fl (6.2-12.0); Monocyte# 0.25 X10^3/uL; Monocyte% 2.4 % (0-10); Neutrophil # 9.59 X10^3/uL (2.7-7.7); Neutrophil % 93.6 % (47-70); Platelet Count 171 K/mm3 (150-450); RBC Distribution Width CV 14.1 % (11.6-14.6); Red Blood Count 4.67 M/mm3 (4.6-6.2); White Blood Count 10.3 K/mm3 (4.4-11.0)
[2018-07-23 08:56] LABS: Differential Indicated SCAN CRITERIA MET; POSITIVE COUNT NO; POSITIVE DIFFERENTIAL YES; POSITIVE MORPHOLOGY NO
[2018-07-23 09:15] LABS: Differential Comment SCANNED
[2018-07-23] MEDS: Dext 5%-0.45% NS 1,000 ML 150 ML IV ×3 (09:30→23:07)
[2018-07-23] MEDS: Metoprolol(XL)Succ 100 MG Tablet PO (09:31)
[2018-07-23] MEDS: Aspirin E.C. 81 MG Tablet PO (09:31)
[2018-07-23] MEDS: Tamsulosin HCl 0.4 MG Capsule PO (09:31)
[2018-07-23] MEDS: Oseltamivir Phosphate 75 MG Capsule PO ×2 (09:31→21:15)
[2018-07-23] MEDS: Enoxaparin 40 MG/0.4 ML Syringe SC (09:31)
[2018-07-23] MEDS: Folic Acid 1 MG Tablet PO (09:31)
[2018-07-23 13:05] LABS: Bedside Glucose 390 mg/dL (70-110)
[2018-07-23] MEDS: Insulin Lispro 100 UNIT/ML INSULN.PEN SC ×2 (13:06→17:59)
[2018-07-23 19:41] LABS: Bedside Glucose 397 mg/dL (70-110)
[2018-07-23] MEDS: traZODone 50 MG Tablet PO (21:15)
[2018-07-23] MEDS: Pravastatin 80 MG Tablet PO (21:15)
[2018-07-24] VITALS (47 sets, daily range): BP systolic 89–167; BP diastolic 53–100; PULSE 64–129; RESP 16–48; TEMP 36.8–37.7; O2SAT 80–96
[2018-07-24] MEDS: Insulin Lispro 100 UNIT/ML INSULN.PEN SC ×4 (00:53→17:19)
[2018-07-24 00:55] LABS: Bedside Glucose 407 mg/dL (70-110)
[2018-07-24 01:25] LABS: Vancomycin, Trough Level 5.4 ug/mL (5.0-15.0)
[2018-07-24] MEDS: Vancomycin IV 1,000 MG/200 ML BAG 200 MG IV (02:15)
[2018-07-24] MEDS: Ipratropium/Albuterol Sulfate 3 ML AMPUL.NEB INHALATION ×6 (03:19→22:55)
--- NOTE | 2018-07-24 04:32 | PCM.RX.CS ---
Consult Pharmacy has been consulted to manage selected antiobiotic: Vancomycin Type of Consult: Follow-up Labs: Sodium 135 mmol/L (136-145) L 07/23/18 08:00 Potassium 4.0 mmol/L (3.5-5.1) 07/23/18 08:00 Chloride 99 mmol/L (98-107) 07/23/18 08:00 Carbon Dioxide 26.0 mmol/L (21.0-32.0) 07/23/18 08:00 Anion Gap 10 (5-15) 07/23/18 08:00 BUN 24 mg/dL (7-18) H 07/23/18 08:00 Creatinine 0.99 mg/dL (0.70-1.30) 07/23/18 08:00 Est GFR (MDRD) Af Amer 97 mL/min (>60) 07/23/18 08:00 Est GFR (MDRD) Non-Af 80 mL/min (>60) 07/23/18 08:00 BUN/Creatinine Ratio 24.1 RATIO (10-20) H 07/23/18 08:00 Glucose 373 mg/dL (74-106) H 07/23/18 08:00 Vancomycin Trough 5.4 ug/mL (5.0-15.0) 07/24/18 00:45 Microbiology: Microbiology 07/21/18 11:25 Sputum, Expectorated/Coughed Gram Stain - Final 07/21/18 11:25 Sputum, Expectorated/Coughed Respiratory Culture - Final Mixed normal respiratory laverne. No Streptococcus pneumoniae, beta-hemolytic Streptococcus or Staphylococcus aureus isolated. 07/21/18 11:55 Blood Culture (Wb) - Right Hand Blood Culture - Preliminary No growth in 48 hours. 07/21/18 11:45 Blood Culture (Wb) - Anticubital Right Blood Culture - Preliminary No growth in 48 hours. 07/20/18 19:00 Mucosa - Nasopharyngeal Influenza Types A,B Direct FA (MERY) - Final Influenzae A Pharmacy Plan for Drug Dosing: Pharmacy Service will continue to monitor and adjust dosing as required. Medications Vancomycin HCl 1,500 mg/ (Sodium Chloride) 530 mls @ 250 mls/hr IV Q12H MELISSA TROUGH 5.4 INCEASE TO 1500 Q12H Follow-Up Labs: Trough Vancomycin Labs to be done on [date and time ordered]: 07/26 @ 0100
--- NOTE | 2018-07-24 06:55 | PN_ITS ---
Subjective: The patient was seen and examined at the bedside this morning. Events from the last 24 hours have been reviewed. The patient is currently afebrile, but is tachycardic, tachypneic and has had an increasing FiO2 requirement overnight. The patient continues to struggle on noninvasive positive pressure ventilation. His main concern is for that of his mouth being dry. He does endorse ongoing shortness of breath. I explained in great detail to the patient again this morning my concern of his tenuous respiratory status and further escalation in FiO2 requirement overnight. At this time, I recommended to him that we proceed with elective intubation. I explained the risks and benefits. Questions were answered accordingly. Consent was obtained from the patient to proceed accordingly. Bedside intubation: The patient was placed in the appropriate sniffing position and premedicated with 4 mg of Versed. He was preoxygenated via bag valve mask. 20 mg of etomidate was administered for sedation. Direct laryngoscopy was performed with a grade 2 view noted. A #7.5 endotracheal tube was subsequently placed, 22 cm at the lip, without complication. There was positive end-tidal CO2 color change. Breath sounds were noted to be equal bilaterally. The endotracheal tube was subsequently secured. A plain film chest x-ray is currently pending. Objective: The patient's most recent lab work, culture data and imaging studies have all been personally reviewed. Rapid influenza screen was positive for influenza A. Expectorated sputum culture appears to be normal respiratory laverne. Blood cultures have been unrevealing to date. General: - - The patient is now intubated, sedated and mechanically ventilated. HEENT: Atraumatic, PERRLA, Normocephalic Oral: Dry Mucosa, - - Endotracheal and OG tubes are currently in place. Neck: Supple, No Nodes, Trachea Midline Lungs: Diminished, Rhonchi, Tachypneic Cardiovascular: Normal S1, Normal S2, No murmurs, Tachycardic Abdomen: Bowel Sounds Present, Soft, Non Tender, Obese Extremities: No clubbing, No cyanosis, No edema Skin: No breakdown Musculoskeletal: No Tenderness to Palpation of Joints or Extremities, No Muscle Wasting Lymphatic: No Cervical, Supraclavicular, or Inguinal Adenopathy Neurological: - - No focal neurological deficits. The patient is now sedated. Vital Signs Temp Pulse Resp BP Pulse Ox 37.2 C 124 H 38 H 147/99 H 92 03/03/19 12:00 07/24/18 06:43 07/24/18 06:40 07/24/18 06:40 07/24/18 06:40 Oxygen Flow Rate (L/min) 15 Oxygen Delivery Method CPAP Weight: 253 lb 12.033 oz Body Mass Index (BMI) 38.6 Intake and Output for Last 24 Hours 07/22/18 07/23/18 07/24/18 23:59 23:59 23:59 Intake Total 2451 / 2451 1757.7 / 1757.7 1859 / 1859 Output Total 1800 / 1800 1050 / 1050 900 / 900 Balance 651 / 651 707.7 / 707.7 959 / 959 Labs (Last 48 Hours) 07/22/18 07/23/18 07/23/18 21:00 08:00 08:00 WBC Cancelled Corrected WBC Cancelled RBC Cancelled Hgb Cancelled Hct Cancelled MCV Cancelled MCH Cancelled MCHC Cancelled RDW Cancelled RDW Differential Cancelled Plt Count Cancelled MPV Cancelled Immature Gran % (Auto) Cancelled Neut % (Auto) Cancelled Lymph % (Auto) Cancelled Posey % (Auto) Cancelled Eos % (Auto) Cancelled Baso % (Auto) Cancelled Immature Gran # (Auto) Cancelled Absolute Neuts (auto) Cancelled Absolute Lymphs (auto) Cancelled Absolute Monos (auto) Cancelled Total Counted Cancelled Neutrophils % (Manual) Cancelled Band Neutrophils % Cancelled Lymphocytes % (Manual) Cancelled Monocytes % (Manual) Cancelled Eosinophils % (Manual) Cancelled Basophils % (Manual) Cancelled Metamyelocytes % Cancelled Myelocytes % Cancelled Promyelocytes % Cancelled Blast Cells % Cancelled Plasma Cell % (Manual) Cancelled Other Cells % Cancelled Lymphocytes # Cancelled Nucleated RBCs/100 WBC Cancelled Differential Comment Cancelled Diff Path Review Cancelled Hypersegmented Neuts Cancelled Atypical Lymphocytes Cancelled Reactive Lymphocytes Cancelled Smudge Cells Cancelled Eosinophilia # Cancelled Basophilia # Cancelled Toxic Granulation Cancelled Dohle Bodies Cancelled Abner Rods Cancelled Platelet Estimate Cancelled Plt Morphology Comment Cancelled RBC Morphology Cancelled Polychromasia Cancelled Hypochromasia Cancelled Poikilocytosis Cancelled Basophilic Stippling Cancelled Anisocytosis Cancelled Microcytosis Cancelled Macrocytosis Cancelled Spherocytes Cancelled Sickle Cells Cancelled Target Cells Cancelled Tear Drop Cells Cancelled Ovalocytes Cancelled Stomatocytes Cancelled [place] Bodies Cancelled Julia Cells Cancelled Bite Cells Cancelled Acanthocytes (Spur) Cancelled Rouleaux Cancelled Schistocytes Cancelled Specimen Type ART Sample Site R Radial pH 7.46 H Bicarbonate Actual 26.3 H POC Total CO2 27 Base Excess 2 O2 Saturation 95 O2 % 85 ABG pCO2 36.7 ABG pO2 72 L Mir Test POS O2 Delivery Device Bi / C PAP EPAP 12 Blood Gas Notified Whom HOSP Blood Gas Notified Time 2054 Sodium 135 L Potassium 4.0 Chloride 99 Carbon Dioxide 26.0 Anion Gap 10 BUN 24 H Creatinine 0.99 Estim Creat Clear Calc 71.97 Est GFR (MDRD) Af Amer 97 Est GFR (MDRD) Non-Af 80 BUN/Creatinine Ratio 24.1 H Glucose 373 H Calcium 8.4 L Vancomycin Trough POC Glucose 07/23/18 07/23/18 07/23/18 08:40 12:58 17:58 WBC 10.3 Corrected WBC RBC 4.67 Hgb 14.6 Hct 44.1 MCV 94.4 H MCH 31.3 MCHC 33.1 RDW 14.1 RDW Differential 48.0 H Plt Count 171 MPV 11.2 Immature Gran % (Auto) 0.200 Neut % (Auto) 93.6 H Lymph % (Auto) 3.6 L Posey % (Auto) 2.4 Eos % (Auto) 0.0 Baso % (Auto) 0.2 Immature Gran # (Auto) Absolute Neuts (auto) 9.6 H Absolute Lymphs (auto) 0.37 L Absolute Monos (auto) Total Counted Not Reportable Neutrophils % (Manual) Band Neutrophils % Lymphocytes % (Manual) Monocytes % (Manual) Eosinophils % (Manual) Basophils % (Manual) Metamyelocytes % Myelocytes % Promyelocytes % Blast Cells % Plasma Cell % (Manual) Other Cells % Lymphocytes # Nucleated RBCs/100 WBC Differential Comment SCANNED Diff Path Review Hypersegmented Neuts Atypical Lymphocytes Reactive Lymphocytes Smudge Cells Eosinophilia # Basophilia # Toxic Granulation Dohle Bodies Abner Rods Platelet Estimate Plt Morphology Comment RBC Morphology Polychromasia Hypochromasia Poikilocytosis Basophilic Stippling Anisocytosis Microcytosis Macrocytosis Spherocytes Sickle Cells Target Cells Tear Drop Cells Ovalocytes Stomatocytes [place] Bodies Julia Cells Bite Cells Acanthocytes (Spur) Rouleaux Schistocytes Specimen Type Sample Site pH Bicarbonate Actual POC Total CO2 Base Excess O2 Saturation O2 % ABG pCO2 ABG pO2 Mir Test O2 Delivery Device EPAP Blood Gas Notified Whom Blood Gas Notified Time Sodium Potassium Chloride Carbon Dioxide Anion Gap BUN Creatinine Estim Creat Clear Calc Est GFR (MDRD) Af Amer Est GFR (MDRD) Non-Af BUN/Creatinine Ratio Glucose Calcium Vancomycin Trough POC Glucose 390 H 397 H 07/24/18 07/24/18 00:42 00:45 WBC Corrected WBC RBC Hgb Hct MCV MCH MCHC RDW RDW Differential Plt Count MPV Immature Gran % (Auto) Neut % (Auto) Lymph % (Auto) Posey % (Auto) Eos % (Auto) Baso % (Auto) Immature Gran # (Auto) Absolute Neuts (auto) Absolute Lymphs (auto) Absolute Monos (auto) Total Counted Neutrophils % (Manual) Band Neutrophils % Lymphocytes % (Manual) Monocytes % (Manual) Eosinophils % (Manual) Basophils % (Manual) Metamyelocytes % Myelocytes % Promyelocytes % Blast Cells % Plasma Cell % (Manual) Other Cells % Lymphocytes # Nucleated RBCs/100 WBC Differential Comment Diff Path Review Hypersegmented Neuts Atypical Lymphocytes Reactive Lymphocytes Smudge Cells Eosinophilia # Basophilia # Toxic Granulation Dohle Bodies Abner Rods Platelet Estimate Plt Morphology Comment RBC Morphology Polychromasia Hypochromasia Poikilocytosis Basophilic Stippling Anisocytosis Microcytosis Macrocytosis Spherocytes Sickle Cells Target Cells Tear Drop Cells Ovalocytes Stomatocytes [place] Bodies Julia Cells Bite Cells Acanthocytes (Spur) Rouleaux Schistocytes Specimen Type Sample Site pH Bicarbonate Actual POC Total CO2 Base Excess O2 Saturation O2 % ABG pCO2 ABG pO2 Mir Test O2 Delivery Device EPAP Blood Gas Notified Whom Blood Gas Notified Time Sodium Potassium Chloride Carbon Dioxide Anion Gap BUN Creatinine Estim Creat Clear Calc Est GFR (MDRD) Af Amer Est GFR (MDRD) Non-Af BUN/Creatinine Ratio Glucose Calcium Vancomycin Trough 5.4 POC Glucose 407 H Microbiology 07/21/18 11:25 Sputum, Expectorated/Coughed Gram Stain - Final 07/21/18 11:25 Sputum, Expectorated/Coughed Respiratory Culture - Final Mixed normal respiratory laverne. No Streptococcus pneumoniae, beta-hemolytic Streptococcus or Staphylococcus aureus isolated. 07/21/18 11:55 Blood Culture (Wb) - Right Hand Blood Culture - Preliminary No growth in 48 hours. 07/21/18 11:45 Blood Culture (Wb) - Anticubital Right Blood Culture - Preliminary No growth in 48 hours. Clinical Impression(s) from Imaging Studies KUB X-Ray 07/20/18 18:41 IMPRESSION: No evidence of obstruction or perforation. at 2003 Reported and signed by: Salinas Noriega MD Electronically Signed: Salinas Noriega, at 20:02 EST Tel , Service support , Chest X-Ray 07/20/18 19:30 IMPRESSION: No radiographic evidence of acute cardiopulmonary disease. at 2003 Reported and signed by: Salinas Noriega MD Electronically Signed: Salinas Noriega, at 20:02 EST Tel , Service support , Abdomen X-Ray 07/21/18 11:07 IMPRESSION: Diffuse distention of bowel most likely ileus. Distal colonic obstruction not likely but possible. at 0143 Reported and signed by: Salinas Noriega MD Electronically Signed: Salinas Noriega, at 1:42 EST Tel , Service support , Chest X-Ray 07/22/18 09:37 IMPRESSION: Findings concerning for multifocal pneumonia in the appropriate clinical setting with underlying alveolar edema not completely excluded. Recommend follow-up imaging in 4-6 weeks after appropriate treatment. Electronically Signed: Pacheco Galo DO at 9:56 EST , Service support , Chest CTA 07/22/18 17:51 IMPRESSION: No pulmonary embolus. Multifocal bilateral airspace disease in the lungs similar to the most recent chest radiograph but increased compared to 07/20/18 compatible with multifocal pneumonia versus a noninfectious inflammatory pneumonitis. Small, 4.0 cm, ascending thoracic aortic aneurysm with no hemorrhage or dissection. Individualized dose optimization techniques were used for this CT. at 1927 Reported and signed by: Salinas Noriega MD Electronically Signed: Salinas Noriega, at 19:26 EST Tel , Service support , Medical Necessity - Tobacco Use Smoking Status: Former smoker Tobacco Use: Non-smoker Assessment/Plan All Active Problems (Last Reviewed 07/20/18 @ 21:39 by Joaquín Laughlin DO) Acute bronchitis (Acute) Influenza A (Acute) Constipation (Acute) Paroxysmal atrial fibrillation (Acute) Hyperlipidemia (Acute) RECOMMENDATIONS: 1. Proceed with elective intubation, given deteriorating respiratory status. 2. Continue broad-spectrum antimicrobials. 3. Obtain sputum culture. 4. Obtain arterial blood gas in 1 hour. 5. Start propofol and fentanyl for sedation. 6. Start tube feeds today per nutrition recommendations. 7. Start Pepcid and continue Lovenox for prophylaxis. 8. Await repeat plain film chest x-ray. IMPRESSIONS: 1. Acute hypoxemic respiratory failure secondary to influenza A infection and severe community-acquired pneumonia/evolving ARDS The patient has a questionable baseline history of COPD. He was seen in the pulmonary medicine clinic 1 year ago, at which time, pulmonary function studies were ordered. However, the patient never followed up. Although the patient was admitted to the hospital with influenza A and a plain film chest x-ray which was largely unremarkable, follow-up chest imaging subsequently revealed evidence of evolving multifocal pneumonia. The patient has essentially gone on to develop full-blown ARDS. He did require intubation on the morning of July 24. We will attempt to obtain a sputum culture at this time. Repeat plain film chest x-ray is currently pending. Continue bronchodilators and IV steroids as ordered. Obtain arterial blood gas. Start tube feeds today. Start Pepcid and continue Lovenox for ICU prophylaxis. 2. Known history of pulmonary nodules The patient is actually past due for a repeat CT chest due to his previously identified pulmonary nodules in March 2017. 3. Obstructive sleep apnea The patient is currently noncompliant with the use of nocturnal noninvasive positive pressure ventilation. 4. Rheumatoid arthritis/atrial fibrillation status post ablation/coronary artery disease/tobacco dependency currently in remission Complicates care, management, recovery and prognosis. Continue home medications as indicated. TIME: 60 minutes of critical care time, inclusive of procedures, was spent addressing the patient's acute hypoxemic respiratory failure, influenza A infection, severe community-acquired pneumonia, ARDS, history of pulmonary nodules, obstructive sleep apnea, review of all data and collaboration with the care team. ([id number]) Code Visit [id number]: [id number] Critical care first hour
[2018-07-24 07:01] LABS: Bedside Glucose 402 mg/dL (70-110)
--- NOTE | 2018-07-24 07:26 | PCM.PN.HOSP ---
Patient Problems: Active and Suspected Problems (Last Reviewed 07/20/18 @ 21:39 by Joaquín Laughlin DO) Acute bronchitis (Acute) Influenza A (Acute) Constipation (Acute) Subjective: Patient was seen and examined. At the time of being examined, he was on BipaP, saturating 90% on PEEP 12, FiO2 60%. Section Hand plans on intubation. Denied any chest pain or dizziness or fever or chills. Vitals/I&O's: Vital Signs Temp Pulse Resp BP Pulse Ox 98.9 F 124 H 38 H 147/99 H 92 07/23/18 12:00 07/24/18 06:43 07/24/18 06:40 07/24/18 06:40 07/24/18 06:40 Oxygen Flow Rate (L/min) 15 Oxygen Delivery Method CPAP Weight: 115.1 kg Body Mass Index (BMI) 38.6 Intake and Output for Last 24 Hours 07/22/18 07/23/18 07/24/18 23:59 23:59 23:59 Intake Total 2451 / 2451 1757.7 / 1757.7 1859 / 1859 Output Total 1800 / 1800 1050 / 1050 900 / 900 Balance 651 / 651 707.7 / 707.7 959 / 959 General: Alert, Oriented x3, Cooperative, - - on Bipap at the time of being examined, obese, in mild respiratory distress HEENT: Atraumatic, PERRLA, EOMI, Normocephalic Oral: Dry Mucosa Neck: Supple, No JVD, Negative Carotid Bruits Lungs: Normal air movement, Diminished Cardiovascular: Regular rate, Normal S1, Normal S2, Irregular Rate, Tachycardic - HR ~130s Abdomen: Bowel Sounds Present, Soft, Non-Distended, No Hepato-splenomegaly, Tender - generalised without guarding or RBT Extremities: No edema Skin: No rashes, No breakdown Musculoskeletal: No Tenderness to Palpation of Joints or Extremities Lymphatic: No Cervical, Supraclavicular, or Inguinal Adenopathy Neurological: Cranial nerves II-XII grossly intact, Neuro grossly intact Psych/Mental Status: Normal Affect, Appropriate Microbiology Past 72 Hours 07/21/18 11:25 Sputum, Expectorated/Coughed Gram Stain - Final 07/21/18 11:25 Sputum, Expectorated/Coughed Respiratory Culture - Final Mixed normal respiratory laverne. No Streptococcus pneumoniae, beta-hemolytic Streptococcus or Staphylococcus aureus isolated. 07/21/18 11:55 Blood Culture (Wb) - Right Hand Blood Culture - Preliminary No growth in 48 hours. 07/21/18 11:45 Blood Culture (Wb) - Anticubital Right Blood Culture - Preliminary No growth in 48 hours. Laboratory Results 07/23/18 08:00: WBC Cancelled, Corrected WBC Cancelled, RBC Cancelled, Hgb Cancelled, Hct Cancelled, MCV Cancelled, MCH Cancelled, MCHC Cancelled, RDW Cancelled, RDW Differential Cancelled, Plt Count Cancelled, MPV Cancelled, Immature Gran % (Auto) Cancelled, Neut % (Auto) Cancelled, Lymph % (Auto) Cancelled, Garland % (Auto) Cancelled, Eos % (Auto) Cancelled, Baso % (Auto) Cancelled, Immature Gran # (Auto) Cancelled, Absolute Neuts (auto) Cancelled, Absolute Lymphs (auto) Cancelled, Absolute Monos (auto) Cancelled, Total Counted Cancelled, Neutrophils % (Manual) Cancelled, Band Neutrophils % Cancelled, Lymphocytes % (Manual) Cancelled, Monocytes % (Manual) Cancelled, Eosinophils % (Manual) Cancelled, Basophils % (Manual) Cancelled, Metamyelocytes % Cancelled, Myelocytes % Cancelled, Promyelocytes % Cancelled, Blast Cells % Cancelled, Plasma Cell % (Manual) Cancelled, Other Cells % Cancelled, Lymphocytes # Cancelled, Nucleated RBCs/100 WBC Cancelled, Differential Comment Cancelled, Diff Path Review Cancelled, Hypersegmented Neuts Cancelled, Atypical Lymphocytes Cancelled, Reactive Lymphocytes Cancelled, Smudge Cells Cancelled, Eosinophilia # Cancelled, Basophilia # Cancelled, Toxic Granulation Cancelled, Dohle Bodies Cancelled, Abner Rods Cancelled, Platelet Estimate Cancelled, Plt Morphology Comment Cancelled, RBC Morphology Cancelled, Polychromasia Cancelled, Hypochromasia Cancelled, Poikilocytosis Cancelled, Basophilic Stippling Cancelled, Anisocytosis Cancelled, Microcytosis Cancelled, Macrocytosis Cancelled, Spherocytes Cancelled, Sickle Cells Cancelled, Target Cells Cancelled, Tear Drop Cells Cancelled, Ovalocytes Cancelled, Stomatocytes Cancelled, Jasso-Whetstone Bodies Cancelled, Julia Cells Cancelled, Bite Cells Cancelled, Acanthocytes (Spur) Cancelled, Rouleaux Cancelled, Schistocytes Cancelled 07/23/18 08:00: Sodium 135 L, Potassium 4.0, Chloride 99, Carbon Dioxide 26.0, Anion Gap 10, BUN 24 H, Creatinine 0.99, Estim Creat Clear Calc 71.97, Est GFR (MDRD) Af Amer 97, Est GFR (MDRD) Non-Af 80, BUN/Creatinine Ratio 24.1 H, Glucose 373 H, Calcium 8.4 L 07/23/18 08:40: WBC 10.3, RBC 4.67, Hgb 14.6, Hct 44.1, MCV 94.4 H, MCH 31.3, MCHC 33.1, RDW 14.1, RDW Differential 48.0 H, Plt Count 171, MPV 11.2, Immature Gran % (Auto) 0.200, Neut % (Auto) 93.6 H, Lymph % (Auto) 3.6 L, Garland % (Auto) 2.4, Eos % (Auto) 0.0, Baso % (Auto) 0.2, Absolute Neuts (auto) 9.6 H, Absolute Lymphs (auto) 0.37 L, Total Counted Not Reportable, Differential Comment SCANNED 07/23/18 12:58: POC Glucose 390 H 07/23/18 17:58: POC Glucose 397 H 07/24/18 00:42: POC Glucose 407 H 07/24/18 00:45: Vancomycin Trough 5.4 07/24/18 05:54: POC Glucose 402 H Current Medications Acetaminophen (Tylenol) 650 mg PO Q6H PRN PRN PRN Reason: Mild Pain (1-3)/Temp > 100.7 F Last Admin: 07/21/18 22:49 Dose: 650 mg Albuterol Sulfate (Ventolin Aerosols) 2.5 mg INHALATION Q2H PRN PRN PRN Reason: SHORTNESS OF BREATH Albuterol/Ipratropium (Duoneb) 3 ml INHALATION Q4H.RT [facility] Last Admin: 07/24/18 06:55 Dose: 3 ml Aspirin (Ecotrin) 81 mg PO DAILY [facility] Last Admin: 07/23/18 09:31 Dose: 81 mg Enoxaparin Sodium (Lovenox) 40 mg SC DAILY@1000 [facility] Last Admin: 07/23/18 09:31 Dose: 40 mg Folic Acid (Folic Acid) 1 mg PO DAILYCM [facility] Last Admin: 07/23/18 09:31 Dose: 1 mg Guaifenesin/Codeine Phosphate (Robitussin Ac) 10 ml PO Q6H PRN PRN PRN Reason: couging fit Last Admin: 07/20/18 23:37 Dose: 10 ml Piperacillin Sod/Tazobactam (Sod 3.375 gm/ Sodium Chloride) 50 mls @ 12.5 mls/hr IV Q8 [facility] Last Admin: 07/24/18 05:48 Dose: 12.5 mls/hr Vancomycin IV Pharmacy to Dose (1 ea/ Sodium Chloride) 500 mls @ 250 mls/hr IV DAILY [facility]; Protocol Last Admin: 07/23/18 09:33 Dose: Not Given Sodium Chloride () 250 mls @ 15 mls/hr IV .[id number] PRN PRN Reason: SALINE FLUSH Dextrose/Sodium Chloride () 1,000 mls @ 150 mls/hr IV .Q6H40M [facility] Last Admin: 07/24/18 07:06 Dose: Not Given Vancomycin HCl 1,500 mg/ (Sodium Chloride) 530 mls @ 250 mls/hr IV Q12H [facility] Insulin Human Lispro (Humalog Kwikpen (Bkc)) 0 unit SC Q6 [facility]; Protocol Last Admin: 07/24/18 05:57 Dose: 7 u Magnesium Hydroxide (Milk Of Magnesia) 30 ml PO DAILY PRN PRN PRN Reason: Constipation Last Admin: 07/21/18 12:40 Dose: 30 ml Methylprednisolone (Solu-Medrol) 40 mg IV Q8 [facility] Last Admin: 07/24/18 05:48 Dose: 40 mg Metoprolol Succinate (Toprol Xl (Beta Patricia)) 100 mg PO DAILY [facility] Last Admin: 07/23/18 09:31 Dose: 100 mg Nutritional Formula (Lactose Free) (Ensure Enlive) 120 ml PO 4X/DAY [facility] Last Admin: 07/23/18 21:19 Dose: Not Given Ondansetron HCl (Zofran) 4 mg IV Q8H PRN PRN PRN Reason: NAUSEA Oseltamivir Phosphate (Tamiflu) 75 mg PO BID [facility] Stop: 07/26/18 10:01 Last Admin: 07/23/18 21:15 Dose: 75 mg Oxycodone HCl (Oxyir) 5 mg PO Q6H PRN PRN PRN Reason: SEVERE PAIN (6-03/01) Last Admin: 07/22/18 15:53 Dose: 5 mg Polyethylene Glycol (Miralax) 17 gm PO DAILY [facility] Last Admin: 07/23/18 09:31 Dose: Not Given Pravastatin Sodium (Pravachol) 80 mg PO QHS [facility] Last Admin: 07/23/18 21:15 Dose: 80 mg Sodium Chloride () 5 - 15 ml IV UD PRN PRN Reason: SALINE FLUSH Last Admin: 07/22/18 11:48 Dose: 10 ml Tamsulosin HCl (Flomax) 0.4 mg PO DAILY [facility] Last Admin: 07/23/18 09:31 Dose: 0.4 mg Trazodone HCl (Desyrel) 50 mg PO QHS [facility] Last Admin: 07/23/18 21:15 Dose: 50 mg Medical Necessity - Tobacco Use Smoking Status: Former smoker Tobacco Use: Non-smoker Assessment/Plan All Active Problems (Last Reviewed 07/20/18 @ 21:39 by Joaquín Laughlin DO) Acute bronchitis (Acute) Influenza A (Acute) Constipation (Acute) Paroxysmal atrial fibrillation (Acute) Hyperlipidemia (Acute) 63-year-old male with multiple comorbidities including nicotine dependence, chronic atrial fibrillation status post ablation, CAD status post PCI admitted with fever chills cough shortness of breath ongoing for 6 days. Patient was found to be positive for influenza and his imaging had shown pneumonia. Patient had gotten worse and was transferred to the ICU, continues to be poor on BiPAP. Section Hand plans on intubation. 1. 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 Acute influenza bronchitis, on Tamiflu, IV solumedrol 3. CAP, multifocal, blood cultures are negative, remains on IV vancomycin and Zosyn, will continue same 4. A. fib with RVR, patient alternating between sinus tachycardia and A. fib, history of ablation, on p.o. metoprolol, will switch to IV metoprolol every 6 5. CAD status post PCI, on aspirin 6. History of MIL, noncompliant with CPAP, RA, pulmonary nodule or stable for now, will be followed up in the outpatient 7. DVT prophylaxis with Lovenox subcu Code Visit Inpatient E&M: 90195 Subs Hosp L3
--- NOTE | 2018-07-24 07:35 | NURSING ---
Pt's notified of plan to intubate patient. States she is on her way in.
[2018-07-24] MEDS: Midazolam 2 MG/2 ML Syringe 4 MG IV (08:36)
[2018-07-24] MEDS: Etomidate 20 MG/10 ML Vial IV (08:37)
--- NOTE | 2018-07-24 08:42 | RAD_ITS ---
STUDY: X-RAY CHEST REASON FOR EXAM: Male, 63 years old. Endotracheal tube and orogastric tube placement. TECHNIQUE: Single AP portable view of the chest. COMPARISON: Comparison is made with prior study dated July 22, 2018. FINDINGS: An endotracheal tube is in situ. The tip is at 4.1 cm proximal to the sunshine. An orogastric tube is seen with the tip within the body of the stomach. Since prior study, there has been progressive bilateral airspace disease in both lungs. There is no demonstrated pleural abnormality. There is borderline cardiomegaly. Normal mediastinum and noelle. Normal visualized pulmonary arteries. There is atherosclerotic tortuosity of the aortic arch and descending thoracic aorta. There are diffuse degenerative changes of the visualized thoracic spine. Normal visualized ribs, clavicles, and shoulders. There is no demonstrated abnormality of the visualized soft tissue structures of the upper abdomen. RAD/Chest 1 View (Portable) IMPRESSION: Progressive bilateral airspace disease. The tip of the endotracheal tube is at 4.1 cm proximal to the sunshine. The tip of the orogastric tube is in the body of the stomach. Electronically Signed: Shar Castillo, at 14:18 EST , Service support ,
[2018-07-24] MEDS: fentaNYL drip 100 ML 5 MCG IV ×3 (09:00→18:34)
[2018-07-24] MEDS: Propofol 10MG/Ml 1,000 MG/100 ML Bottle 6.906 MG CONT INF ×5 (09:11→22:51)
[2018-07-24] MEDS: 0.9% NaCl Peripheral Flush Adult/Peds IV ×2 (09:13→09:16)
[2018-07-24] MEDS: 0.9% Normal Saline 1,000 ML 75 ML IV (09:16)
--- NOTE | 2018-07-24 10:04 | ECHOCS_ITS ---
Reason For Study: SOB Procedure This was a 2D Doppler, Color Flow transthoracic echocardiogram. PT SCANNED SUPINE D/T VENT. Exam performed portable in ICU/CCU. Left Ventricle Normal LV size. Mild concentric left ventricular hypertrophy. Left ventricular systolic function is normal. The estimated ejection fraction is 55 %. Stage 2 diastolic dysfunction. No regional wall motion abnormalities noted. Right Ventricle Normal RV size. Normal systolic function. Atria Normal left atrium. Normal right atrium. Mitral Valve Normal mitral valve. Tricuspid Valve Normal tricuspid valve. Mild (1+) tricuspid valve insufficiency. Pulmonary artery systolic pressure is 26 mmHg. Aortic Valve Trisinus/trileaflet aortic valve. Moderate focal aortic valve calcification. Pulmonic Valve The pulmonic valve is not well visualized. Great Vessels Normal aortic root. The pulmonary artery is normal size. Normal inferior vena cava. Pericardium/Pleural No pericardial effusion. Medication Diluted definity 3ml given slow IV push to enhance endocardial definition. MMode/2D Measurements & Calculations LVIDd: 3.6 cm IVSd: 1.2 cm LVOT diam: 2.2 cm LVIDs: 2.1 cm LVPWd: 1.2 cm RVDd: 3.6 cm FS: 41.7 % LVOT area: 3.7 cm2 Ao root diam: 4.1 cm LAV(MOD-bp): 54.2 ml LA A4 area: 20.9 cm2 LAV(MOD-bp) Indexed: 24.0 ml/m2 LAV(MOD-sp2): 49.0 ml LAV(MOD-sp4): 58.3 ml LA dimension(2D): 3.2 cm RA A4 area: 19.6 cm2 Doppler Measurements & Calculations MV E max franco: 101.1 cm/sec Lat Peak E' Franco: 7.4 cm/sec Med Peak E' Franco: 6.2 cm/sec MV A max franco: 49.0 cm/sec E/E' lat: 13.7 E/E' med: 16.3 MV E/A: 2.1 Ao V2 max: 218.0 cm/sec LV V1 max: 93.4 cm/sec SV(LVOT): 62.2 ml Ao max P.0 mmHg LV V1 max P.5 mmHg Ao V2 mean: 146.2 cm/sec LV V1 mean P.8 mmHg Ao mean P.6 mmHg LV V1 mean: 64.4 cm/sec Ao V2 VTI: 38.9 cm LV V1 VTI: 16.8 cm AMAURY(I,D): 1.6 cm2 AMAURY(V,D): 1.6 cm2 PA V2 max: 76.9 cm/sec TR max franco: 239.7 cm/sec TR max P.0 mmHg Interpretation Summary Normal LV size. Mild concentric left ventricular hypertrophy. Left ventricular systolic function is normal. The estimated ejection fraction is 55 %. Stage 2 diastolic dysfunction. Pulmonary artery systolic pressure is 26 mmHg. Contrast injection was performed. Ordering Physician: Fabio Ponce D.O. Referring Physician: Wes Andres Performed By: Anabela Dominique RDCS
[2018-07-24 10:26] LABS: Base Excess 2 mmol/L (-2 to +2); Blood Gas Specimen Type ART; FI02 100; Mode A-C; O2 Delivery Device Vent; PEEP 10; PO2 61 mmHG (75-100); RR 16; SITE L Brachial; SO2 90 % (95-99); Time Given 1019; Total Carbon Dioxide 28 mmol/L; Vt 500; pCO2 45.6 mmHg (35-45); pH 7.38 (7.35-7.45)
[2018-07-24 10:31] LABS: CPK Total, Creatine Kinase 85 U/L (39-308); Triglycerides 163 mg/dL
[2018-07-24] MEDS: Tamsulosin HCl 0.4 MG Capsule PO (11:15)
[2018-07-24] MEDS: Enoxaparin 40 MG/0.4 ML Syringe SC (11:15)
[2018-07-24] MEDS: Famotidine 20 MG Tablet GT ×2 (11:15→21:15)
[2018-07-24] MEDS: Aspirin 81 MG TAB.CHEW GT (11:18)
[2018-07-24] MEDS: Oseltamivir Phosphate 75 MG Capsule GT ×2 (11:18→21:15)
[2018-07-24] MEDS: Folic Acid 1 MG Tablet GT (11:19)
[2018-07-24 11:45] LABS: Bedside Glucose 400 mg/dL (70-110)
[2018-07-24] MEDS: Vital AF 1.2 Cal Liquid 1,000 ML 20 ML GT (15:44)
[2018-07-24 18:36] LABS: Bedside Glucose 374 mg/dL (70-110)
[2018-07-24] MEDS: Pravastatin 80 MG Tablet PO (21:15)
[2018-07-24] MEDS: Chlorhexidine 15 ML PO (21:31)
[2018-07-25] VITALS (52 sets, daily range): BP systolic 99–140; BP diastolic 52–86; PULSE 61–86; RESP 15–25; TEMP 36.6–37.4; O2SAT 87–95
[2018-07-25] MEDS: fentaNYL drip 100 ML 5 MCG IV ×5 (00:19→23:05)
[2018-07-25] MEDS: Insulin Lispro 100 UNIT/ML INSULN.PEN SC ×6 (00:27→22:24)
[2018-07-25 02:01] LABS: Bedside Glucose 409 mg/dL (70-110)
[2018-07-25] MEDS: Ipratropium/Albuterol Sulfate 3 ML AMPUL.NEB INHALATION ×6 (03:40→22:40)
[2018-07-25] MEDS: CHLORHEXIDINE GLUC 2% CLOTH 1 EACH TOWELETTE TOPICAL (04:27)
[2018-07-25] MEDS: Propofol 10MG/Ml 1,000 MG/100 ML Bottle 6.906 MG CONT INF ×7 (04:27→23:44)
[2018-07-25 05:51] LABS: Absolute Neutrophil Count 5.3 X10^3/uL (2.0-7.7); Basophil# 0.03 X10^3/uL; Basophil% 0.5 % (0-1); Hemoglobin 12.5 g/dl (13.0-16.5); Lymphocyte % 7.9 % (19-41); Mean Corp Hgb Conc 32.1 g/gl (32-36); Mean Corpuscular Hgb 31.5 pg (27.0-32.0); Mean Corpuscular Volume 98.2 fL (80-94); Mean Platelet Vol. 11.1 fl (6.2-12.0); Monocyte# 0.49 X10^3/uL; Monocyte% 7.7 % (0-10); Neutrophil # 5.29 X10^3/uL (2.7-7.7); Neutrophil % 83.3 % (47-70); Platelet Count 182 K/mm3 (150-450); RBC Distribution Width CV 13.9 % (11.6-14.6); RBC Distribution Width SD 49.6 fl (35.1-43.9); Red Blood Count 3.97 M/mm3 (4.6-6.2); White Blood Count 6.4 K/mm3 (4.4-11.0)
[2018-07-25 05:52] LABS: Differential Indicated SCAN CRITERIA MET; POSITIVE COUNT NO; POSITIVE DIFFERENTIAL YES; POSITIVE MORPHOLOGY YES
[2018-07-25 06:01] LABS: Anion Gap 11 (5-15); BUN 56 mg/dL (7-18); BUN/Creat Ratio 26.3 RATIO (10-20); Calcium,Total 7.7 mg/dL (8.5-10.1); Chloride 105 mmol/L (98-107); Creatinine, Serum 2.13 mg/dL (0.70-1.30); EST Glomerular Filtration Rate 33 mL/min (>60); Est Glom Filt Rate - Afr Amer 40 mL/min (>60); Estimated Creatinine Clearance 33.45 ml/min; Glucose 481 mg/dL (74-106); Magnesium 2.6 mg/dL (1.6-2.6); Potassium 4.5 mmol/L (3.5-5.1); Sodium Level 141 mmol/L (136-145)
[2018-07-25 06:15] LABS: BNP,B-Type NATRIURETIC PEPTIDE 59.4 pg/mL (0-100)
[2018-07-25] MEDS: 0.9% Normal Saline 1,000 ML 75 ML IV (06:54)
--- NOTE | 2018-07-25 07:11 | PCM.PN.INT ---
Subjective: The patient was seen and examined at the bedside this morning. Events from the last 24 hours have been reviewed. The patient is currently afebrile, hemodynamically stable and maintaining appropriate oxygen saturations on assist control mode of mechanical ventilation with an FiO2 requirement of 100% and PEEP of 10. The patient is currently documented to be overall net +7 L for the admission. Creatinine has increased this morning to 2.13. Glucose is elevated to 481. This morning, the patient's tidal volume slightly decreased to maintain a low tidal volume strategy at 6 cc/kg. Sedation with propofol and fentanyl were both maximized. Objective: The patient's most recent lab work, culture data and imaging studies have all been personally reviewed. Chest imaging studies have all revealed significant multifocal bilateral infiltrates. Surface echocardiogram revealed mild concentric LVH with an ejection fraction of 55% and stage II diastolic dysfunction. Pulmonary artery systolic pressure was estimated to be 26 mmHg. General: - - Intubated, sedated and mechanically ventilated. HEENT: Atraumatic, PERRLA, Normocephalic Oral: Moist Mucosa, - - Endotracheal tube and OG tube in place Neck: Supple, No Nodes, Trachea Midline Lungs: No rhonchi, No wheeze, No rales, Diminished Cardiovascular: Regular rate, Regular Rhythm, Normal S1, Normal S2, No murmurs Abdomen: Bowel Sounds Present, Soft, Non Tender, Obese Extremities: No clubbing, No cyanosis, No edema Skin: No breakdown Musculoskeletal: No Tenderness to Palpation of Joints or Extremities Lymphatic: No Cervical, Supraclavicular, or Inguinal Adenopathy Neurological: - - No focal deficits. Currently sedated. Vital Signs Temp Pulse Resp BP Pulse Ox 37.2 C 66 17 124/63 H 92 07/25/18 04:00 07/25/18 07:00 07/25/18 07:00 07/25/18 07:00 07/25/18 07:00 Oxygen Flow Rate (L/min) 15 Oxygen Delivery Method Mechanical Ventilator Weight: 255 lb 11.779 oz Body Mass Index (BMI) 38.6 Intake and Output for Last 24 Hours 07/23/18 07/24/18 07/25/18 23:59 23:59 23:59 Intake Total 1757.7 / 1757.7 3419 / 3419 3431.6 / 3431.6 Output Total 1050 / 1050 1550 / 1550 550 / 550 Balance 707.7 / 707.7 1869 / 1869 2881.6 / 2881.6 Labs (Last 48 Hours) 07/23/18 07/23/18 07/23/18 08:00 08:00 08:40 WBC Cancelled 10.3 Corrected WBC Cancelled RBC Cancelled 4.67 Hgb Cancelled 14.6 Hct Cancelled 44.1 MCV Cancelled 94.4 H MCH Cancelled 31.3 MCHC Cancelled 33.1 RDW Cancelled 14.1 RDW Differential Cancelled 48.0 H Plt Count Cancelled 171 MPV Cancelled 11.2 Immature Gran % (Auto) Cancelled 0.200 Neut % (Auto) Cancelled 93.6 H Lymph % (Auto) Cancelled 3.6 L [place] % (Auto) Cancelled 2.4 Eos % (Auto) Cancelled 0.0 Baso % (Auto) Cancelled 0.2 Immature Gran # (Auto) Cancelled Absolute Neuts (auto) Cancelled 9.6 H Absolute Lymphs (auto) Cancelled 0.37 L Absolute Monos (auto) Cancelled Total Counted Cancelled Not Reportable Neutrophils % (Manual) Cancelled Band Neutrophils % Cancelled Lymphocytes % (Manual) Cancelled Monocytes % (Manual) Cancelled Eosinophils % (Manual) Cancelled Basophils % (Manual) Cancelled Metamyelocytes % Cancelled Myelocytes % Cancelled Promyelocytes % Cancelled Blast Cells % Cancelled Plasma Cell % (Manual) Cancelled Other Cells % Cancelled Lymphocytes # Cancelled Nucleated RBCs/100 WBC Cancelled Differential Comment Cancelled SCANNED Diff Path Review Cancelled Hypersegmented Neuts Cancelled Atypical Lymphocytes Cancelled Reactive Lymphocytes Cancelled Smudge Cells Cancelled Eosinophilia # Cancelled Basophilia # Cancelled Toxic Granulation Cancelled Dohle Bodies Cancelled Abner Rods Cancelled Platelet Estimate Cancelled Plt Morphology Comment Cancelled RBC Morphology Cancelled Polychromasia Cancelled Hypochromasia Cancelled Poikilocytosis Cancelled Basophilic Stippling Cancelled Anisocytosis Cancelled Microcytosis Cancelled Macrocytosis Cancelled Spherocytes Cancelled Sickle Cells Cancelled Target Cells Cancelled Tear Drop Cells Cancelled Ovalocytes Cancelled Stomatocytes Cancelled [place] Bodies Cancelled [place] Cells Cancelled Bite Cells Cancelled Acanthocytes (Spur) Cancelled Rouleaux Cancelled Schistocytes Cancelled Specimen Type Sample Site pH Bicarbonate Actual POC Total CO2 Base Excess O2 Saturation O2 % ABG pCO2 ABG pO2 Respiration Rate O2 Delivery Device Vent Mode Tidal Volume POC PEEP Blood Gas Notified Whom Blood Gas Notified Time Sodium 135 L Potassium 4.0 Chloride 99 Carbon Dioxide 26.0 Anion Gap 10 BUN 24 H Creatinine 0.99 Estim Creat Clear Calc 71.97 Est GFR (MDRD) Af Amer 97 Est GFR (MDRD) Non-Af 80 BUN/Creatinine Ratio 24.1 H Glucose 373 H Calcium 8.4 L Magnesium Total Creatine Kinase B-Natriuretic Peptide Triglycerides Vancomycin Trough POC Glucose 07/23/18 07/23/18 07/24/18 12:58 17:58 00:42 WBC Corrected WBC RBC Hgb Hct MCV MCH MCHC RDW RDW Differential Plt Count MPV Immature Gran % (Auto) Neut % (Auto) Lymph % (Auto) [place] % (Auto) Eos % (Auto) Baso % (Auto) Immature Gran # (Auto) Absolute Neuts (auto) Absolute Lymphs (auto) Absolute Monos (auto) Total Counted Neutrophils % (Manual) Band Neutrophils % Lymphocytes % (Manual) Monocytes % (Manual) Eosinophils % (Manual) Basophils % (Manual) Metamyelocytes % Myelocytes % Promyelocytes % Blast Cells % Plasma Cell % (Manual) Other Cells % Lymphocytes # Nucleated RBCs/100 WBC Differential Comment Diff Path Review Hypersegmented Neuts Atypical Lymphocytes Reactive Lymphocytes Smudge Cells Eosinophilia # Basophilia # Toxic Granulation Dohle Bodies Abner Rods Platelet Estimate Plt Morphology Comment RBC Morphology Polychromasia Hypochromasia Poikilocytosis Basophilic Stippling Anisocytosis Microcytosis Macrocytosis Spherocytes Sickle Cells Target Cells Tear Drop Cells Ovalocytes Stomatocytes [place] Bodies Julia Cells Bite Cells Acanthocytes (Spur) Rouleaux Schistocytes Specimen Type Sample Site pH Bicarbonate Actual POC Total CO2 Base Excess O2 Saturation O2 % ABG pCO2 ABG pO2 Respiration Rate O2 Delivery Device Vent Mode Tidal Volume POC PEEP Blood Gas Notified Whom Blood Gas Notified Time Sodium Potassium Chloride Carbon Dioxide Anion Gap BUN Creatinine Estim Creat Clear Calc Est GFR (MDRD) Af Amer Est GFR (MDRD) Non-Af BUN/Creatinine Ratio Glucose Calcium Magnesium Total Creatine Kinase B-Natriuretic Peptide Triglycerides Vancomycin Trough POC Glucose 390 H 397 H 407 H 07/24/18 07/24/18 07/24/18 00:45 00:45 05:54 WBC Corrected WBC RBC Hgb Hct MCV MCH MCHC RDW RDW Differential Plt Count MPV Immature Gran % (Auto) Neut % (Auto) Lymph % (Auto) [place] % (Auto) Eos % (Auto) Baso % (Auto) Immature Gran # (Auto) Absolute Neuts (auto) Absolute Lymphs (auto) Absolute Monos (auto) Total Counted Neutrophils % (Manual) Band Neutrophils % Lymphocytes % (Manual) Monocytes % (Manual) Eosinophils % (Manual) Basophils % (Manual) Metamyelocytes % Myelocytes % Promyelocytes % Blast Cells % Plasma Cell % (Manual) Other Cells % Lymphocytes # Nucleated RBCs/100 WBC Differential Comment Diff Path Review Hypersegmented Neuts Atypical Lymphocytes Reactive Lymphocytes Smudge Cells Eosinophilia # Basophilia # Toxic Granulation Dohle Bodies Abner Rods Platelet Estimate Plt Morphology Comment RBC Morphology Polychromasia Hypochromasia Poikilocytosis Basophilic Stippling Anisocytosis Microcytosis Macrocytosis Spherocytes Sickle Cells Target Cells Tear Drop Cells Ovalocytes Stomatocytes [place] Bodies [place] Cells Bite Cells Acanthocytes (Spur) Rouleaux Schistocytes Specimen Type Sample Site pH Bicarbonate Actual POC Total CO2 Base Excess O2 Saturation O2 % ABG pCO2 ABG pO2 Respiration Rate O2 Delivery Device Vent Mode Tidal Volume POC PEEP Blood Gas Notified Whom Blood Gas Notified Time Sodium Potassium Chloride Carbon Dioxide Anion Gap BUN Creatinine Estim Creat Clear Calc Est GFR (MDRD) Af Amer Est GFR (MDRD) Non-Af BUN/Creatinine Ratio Glucose Calcium Magnesium Total Creatine Kinase 85 B-Natriuretic Peptide Triglycerides 163 Vancomycin Trough 5.4 POC Glucose 402 H 07/24/18 07/24/18 07/24/18 10:20 11:17 17:15 WBC Corrected WBC RBC Hgb Hct MCV MCH MCHC RDW RDW Differential Plt Count MPV Immature Gran % (Auto) Neut % (Auto) Lymph % (Auto) [place] % (Auto) Eos % (Auto) Baso % (Auto) Immature Gran # (Auto) Absolute Neuts (auto) Absolute Lymphs (auto) Absolute Monos (auto) Total Counted Neutrophils % (Manual) Band Neutrophils % Lymphocytes % (Manual) Monocytes % (Manual) Eosinophils % (Manual) Basophils % (Manual) Metamyelocytes % Myelocytes % Promyelocytes % Blast Cells % Plasma Cell % (Manual) Other Cells % Lymphocytes # Nucleated RBCs/100 WBC Differential Comment Diff Path Review Hypersegmented Neuts Atypical Lymphocytes Reactive Lymphocytes Smudge Cells Eosinophilia # Basophilia # Toxic Granulation Dohle Bodies Abner Rods Platelet Estimate Plt Morphology Comment RBC Morphology Polychromasia Hypochromasia Poikilocytosis Basophilic Stippling Anisocytosis Microcytosis Macrocytosis Spherocytes Sickle Cells Target Cells Tear Drop Cells Ovalocytes Stomatocytes [place] Bodies Julia Cells Bite Cells Acanthocytes (Spur) Rouleaux Schistocytes Specimen Type ART Sample Site L Brachial pH 7.38 Bicarbonate Actual 27.0 H POC Total CO2 28 Base Excess 2 O2 Saturation 90 L O2 % 100 ABG pCO2 45.6 H ABG pO2 61 L Respiration Rate 16 O2 Delivery Device Vent Vent Mode A-C Tidal Volume 500 POC PEEP 10 Blood Gas Notified Whom ICU Blood Gas Notified Time 1019 Sodium Potassium Chloride Carbon Dioxide Anion Gap BUN Creatinine Estim Creat Clear Calc Est GFR (MDRD) Af Amer Est GFR (MDRD) Non-Af BUN/Creatinine Ratio Glucose Calcium Magnesium Total Creatine Kinase B-Natriuretic Peptide Triglycerides Vancomycin Trough POC Glucose 400 H 374 H 07/25/18 07/25/18 07/25/18 00:26 05:25 05:25 WBC 6.4 Corrected WBC RBC 3.97 L Hgb 12.5 L Hct 39.0 L MCV 98.2 H MCH 31.5 MCHC 32.1 RDW 13.9 RDW Differential 49.6 H Plt Count 182 MPV 11.1 Immature Gran % (Auto) 0.600 Neut % (Auto) 83.3 H Lymph % (Auto) 7.9 L [place] % (Auto) 7.7 Eos % (Auto) 0.0 Baso % (Auto) 0.5 Immature Gran # (Auto) Absolute Neuts (auto) 5.3 Absolute Lymphs (auto) 0.50 L Absolute Monos (auto) Total Counted Not Reportable Neutrophils % (Manual) Band Neutrophils % Lymphocytes % (Manual) Monocytes % (Manual) Eosinophils % (Manual) Basophils % (Manual) Metamyelocytes % Myelocytes % Promyelocytes % Blast Cells % Plasma Cell % (Manual) Other Cells % Lymphocytes # Nucleated RBCs/100 WBC Differential Comment Diff Path Review May foll Hypersegmented Neuts Atypical Lymphocytes Reactive Lymphocytes Smudge Cells Eosinophilia # Basophilia # Toxic Granulation Dohle Bodies Abner Rods Platelet Estimate Plt Morphology Comment RBC Morphology Polychromasia Hypochromasia Poikilocytosis Basophilic Stippling Anisocytosis Microcytosis Macrocytosis Spherocytes Sickle Cells Target Cells Tear Drop Cells Ovalocytes Stomatocytes [place] Bodies [place] Cells Bite Cells Acanthocytes (Spur) Rouleaux Schistocytes Specimen Type Sample Site pH Bicarbonate Actual POC Total CO2 Base Excess O2 Saturation O2 % ABG pCO2 ABG pO2 Respiration Rate O2 Delivery Device Vent Mode Tidal Volume POC PEEP Blood Gas Notified Whom Blood Gas Notified Time Sodium 141 Potassium 4.5 Chloride 105 Carbon Dioxide 25.0 Anion Gap 11 BUN 56 H Creatinine 2.13 H Estim Creat Clear Calc 33.45 Est GFR (MDRD) Af Amer 40 L Est GFR (MDRD) Non-Af 33 L BUN/Creatinine Ratio 26.3 H Glucose 481 H* Calcium 7.7 L Magnesium 2.6 Total Creatine Kinase B-Natriuretic Peptide Triglycerides Vancomycin Trough POC Glucose 409 H 07/25/18 05:25 WBC Corrected WBC RBC Hgb Hct MCV MCH MCHC RDW RDW Differential Plt Count MPV Immature Gran % (Auto) Neut % (Auto) Lymph % (Auto) [place] % (Auto) Eos % (Auto) Baso % (Auto) Immature Gran # (Auto) Absolute Neuts (auto) Absolute Lymphs (auto) Absolute Monos (auto) Total Counted Neutrophils % (Manual) Band Neutrophils % Lymphocytes % (Manual) Monocytes % (Manual) Eosinophils % (Manual) Basophils % (Manual) Metamyelocytes % Myelocytes % Promyelocytes % Blast Cells % Plasma Cell % (Manual) Other Cells % Lymphocytes # Nucleated RBCs/100 WBC Differential Comment Diff Path Review Hypersegmented Neuts Atypical Lymphocytes Reactive Lymphocytes Smudge Cells Eosinophilia # Basophilia # Toxic Granulation Dohle Bodies Abner Rods Platelet Estimate Plt Morphology Comment RBC Morphology Polychromasia Hypochromasia Poikilocytosis Basophilic Stippling Anisocytosis Microcytosis Macrocytosis Spherocytes Sickle Cells Target Cells Tear Drop Cells Ovalocytes Stomatocytes [place] Bodies Julia Cells Bite Cells Acanthocytes (Spur) Rouleaux Schistocytes Specimen Type Sample Site pH Bicarbonate Actual POC Total CO2 Base Excess O2 Saturation O2 % ABG pCO2 ABG pO2 Respiration Rate O2 Delivery Device Vent Mode Tidal Volume POC PEEP Blood Gas Notified Whom Blood Gas Notified Time Sodium Potassium Chloride Carbon Dioxide Anion Gap BUN Creatinine Estim Creat Clear Calc Est GFR (MDRD) Af Amer Est GFR (MDRD) Non-Af BUN/Creatinine Ratio Glucose Calcium Magnesium Total Creatine Kinase B-Natriuretic Peptide 59.4 Triglycerides Vancomycin Trough POC Glucose Microbiology 07/24/18 10:10 Sputum, Tracheal Aspirate Gram Stain - Final 07/21/18 11:25 Sputum, Expectorated/Coughed Gram Stain - Final 07/21/18 11:25 Sputum, Expectorated/Coughed Respiratory Culture - Final Mixed normal respiratory laverne. No Streptococcus pneumoniae, beta-hemolytic Streptococcus or Staphylococcus aureus isolated. 07/21/18 11:55 Blood Culture (Wb) - Right Hand Blood Culture - Preliminary No growth in 48 hours. 07/21/18 11:45 Blood Culture (Wb) - Anticubital Right Blood Culture - Preliminary No growth in 48 hours. Clinical Impression(s) from Imaging Studies [facility] X-Ray 07/20/18 18:41 IMPRESSION: No evidence of obstruction or perforation. at 2003 Reported and signed by: Salinas Noriega MD Electronically Signed: Salinas Noriega, at 20:02 EST Tel , Service support , Chest X-Ray 07/20/18 19:30 IMPRESSION: No radiographic evidence of acute cardiopulmonary disease. at 2002 Reported and signed by: Salinas Noriega MD Electronically Signed: Salinas Noriega, at 20:02 EST Tel , Service support , Abdomen X-Ray 07/21/18 11:07 IMPRESSION: Diffuse distention of bowel most likely ileus. Distal colonic obstruction not likely but possible. at 0143 Reported and signed by: Salinas Noriega MD Electronically Signed: Salinas Noriega, at 1:42 EST Tel , Service support , Chest X-Ray 07/22/18 09:37 IMPRESSION: Findings concerning for multifocal pneumonia in the appropriate clinical setting with underlying alveolar edema not completely excluded. Recommend follow-up imaging in 4-6 weeks after appropriate treatment. Electronically Signed: Pacheco Galo DO at 9:56 EST , Service support , Chest CTA 07/22/18 17:51 IMPRESSION: No pulmonary embolus. Multifocal bilateral airspace disease in the lungs similar to the most recent chest radiograph but increased compared to 07/20/18 compatible with multifocal pneumonia versus a noninfectious inflammatory pneumonitis. Small, 4.0 cm, ascending thoracic aortic aneurysm with no hemorrhage or dissection. Individualized dose optimization techniques were used for this CT. at 1927 Reported and signed by: Salinas Noriega MD Electronically Signed: Salinas Noriega, at 19:26 EST Tel , Service support , Chest X-Ray 07/24/18 08:42 IMPRESSION: Progressive bilateral airspace disease. The tip of the endotracheal tube is at 4.1 cm proximal to the sunshine. The tip of the orogastric tube is in the body of the stomach. Electronically Signed: Shar Castillo, at 14:18 EST , Service support , Medical Necessity - Tobacco Use Smoking Status: Former smoker Tobacco Use: Non-smoker Assessment/Plan All Active Problems (Last Reviewed 07/20/18 @ 21:39 by Joaquín Laughlin DO) Acute bronchitis (Acute) Influenza A (Acute) Constipation (Acute) PAUL (acute kidney injury) (Acute) Paroxysmal atrial fibrillation (Acute) Hyperlipidemia (Acute) RECOMMENDATIONS: 1. Continue current supportive measures with lung protective ventilatory strategy. 2. Wean FiO2 and PEEP to maintain an oxygen saturation at or above 90%. 3. Continue tube feeds as ordered. 4. Obtain repeat arterial blood gas and plain film chest x-ray. 5. Infectious diseases consultation pending. 6. Continue Tamiflu and antibiotics as ordered. 7. Continue appropriate ICU prophylaxis 8. Continue bronchodilators and IV steroids. 9. Continue current sedation regimen. Given the patient's tenuous respiratory status, maintain a RASS of at least -3 for now. 10. Nephrology consultation for PAUL. IMPRESSIONS: 1. Acute hypoxemic respiratory failure secondary to influenza A infection and severe community-acquired pneumonia/evolving ARDS The patient has a questionable baseline history of COPD. He was seen in the pulmonary medicine clinic 1 year ago, at which time, pulmonary function studies were ordered. However, the patient never followed up. Although the patient was admitted to the hospital with influenza A and a plain film chest x-ray which was largely unremarkable, follow-up chest imaging subsequently revealed evidence of evolving multifocal pneumonia. The patient has essentially gone on to develop full-blown ARDS. He did require intubation on the morning of July 24. We will plan to continue current supportive measures with invasive mechanical ventilatory support and tube feeds as ordered. Wean FiO2 to maintain an oxygen saturation at or above 90%. Obtain repeat arterial blood gas and plain film chest x-ray this morning. Continue bronchodilators and IV steroids as ordered. Continue Pepcid and Lovenox for prophylaxis. Given that the patient is on methotrexate as an outpatient, will obtain infectious diseases consultation as well. 2. Acute kidney injury Nephrology was consulted to assist with management. Avoid nephrotoxic agents. Continue to monitor urine output. 3. Known history of pulmonary nodules The patient is actually past due for a repeat CT chest due to his previously identified pulmonary nodules in March 2017. 4. Obstructive sleep apnea The patient is currently noncompliant with the use of nocturnal noninvasive positive pressure ventilation. 5. Rheumatoid arthritis/atrial fibrillation status post ablation/coronary artery disease/tobacco dependency currently in remission Complicates care, management, recovery and prognosis. Continue home medications as indicated. Insulin regimen will be increased due to persistent hyperglycemia. TIME: 45 minutes of critical care time, independent of procedures, was spent addressing the patient's acute hypoxemic respiratory failure, influenza A infection, severe community-acquired pneumonia, ARDS, acute kidney injury, history of pulmonary nodules, obstructive sleep apnea, review of all data and collaboration with the care team. ([id number]) Code Visit [id number]: [id number] Critical care first hour
--- NOTE | 2018-07-25 07:15 | PN_ITS ---
Subjective: The patient was seen and examined at the bedside this morning. Events from the last 24 hours have been reviewed. The patient is currently afebrile, hemodynamically stable and maintaining appropriate oxygen saturations on assist control mode of mechanical ventilation with an FiO2 requirement of 100% and PEEP of 10. The patient is currently documented to be overall net +7 L for the admission. Creatinine has increased this morning to 2.13. Glucose is elevated to 481. This morning, the patient's tidal volume slightly decreased to maintain a low tidal volume strategy at 6 cc/kg. Sedation with propofol and fentanyl were both maximized. Objective: The patient's most recent lab work, culture data and imaging studies have all been personally reviewed. Chest imaging studies have all revealed significant multifocal bilateral infiltrates. Surface echocardiogram revealed mild concentric LVH with an ejection fraction of 55% and stage II diastolic dysfunction. Pulmonary artery systolic pressure was estimated to be 26 mmHg. General: - - Intubated, sedated and mechanically ventilated. HEENT: Atraumatic, PERRLA, Normocephalic Oral: Moist Mucosa, - - Endotracheal tube and OG tube in place Neck: Supple, No Nodes, Trachea Midline Lungs: No rhonchi, No wheeze, No rales, Diminished Cardiovascular: Regular rate, Regular Rhythm, Normal S1, Normal S2, No murmurs Abdomen: Bowel Sounds Present, Soft, Non Tender, Obese Extremities: No clubbing, No cyanosis, No edema Skin: No breakdown Musculoskeletal: No Tenderness to Palpation of Joints or Extremities Lymphatic: No Cervical, Supraclavicular, or Inguinal Adenopathy Neurological: - - No focal deficits. Currently sedated. Vital Signs Temp Pulse Resp BP Pulse Ox 37.2 C 66 17 124/63 H 92 07/25/18 04:00 07/25/18 07:00 07/25/18 07:00 07/25/18 07:00 07/25/18 07:00 Oxygen Flow Rate (L/min) 15 Oxygen Delivery Method Mechanical Ventilator Weight: 255 lb 11.779 oz Body Mass Index (BMI) 38.6 Intake and Output for Last 24 Hours 07/23/18 07/24/18 07/25/18 23:59 23:59 23:59 Intake Total 1757.7 / 1757.7 3419 / 3419 3431.6 / 3431.6 Output Total 1050 / 1050 1550 / 1550 550 / 550 Balance 707.7 / 707.7 1869 / 1869 2881.6 / 2881.6 Labs (Last 48 Hours) 07/23/18 07/23/18 07/23/18 08:00 08:00 08:40 WBC Cancelled 10.3 Corrected WBC Cancelled RBC Cancelled 4.67 Hgb Cancelled 14.6 Hct Cancelled 44.1 MCV Cancelled 94.4 H MCH Cancelled 31.3 MCHC Cancelled 33.1 RDW Cancelled 14.1 RDW Differential Cancelled 48.0 H Plt Count Cancelled 171 MPV Cancelled 11.2 Immature Gran % (Auto) Cancelled 0.200 Neut % (Auto) Cancelled 93.6 H Lymph % (Auto) Cancelled 3.6 L [place] % (Auto) Cancelled 2.4 Eos % (Auto) Cancelled 0.0 Baso % (Auto) Cancelled 0.2 Immature Gran # (Auto) Cancelled Absolute Neuts (auto) Cancelled 9.6 H Absolute Lymphs (auto) Cancelled 0.37 L Absolute Monos (auto) Cancelled Total Counted Cancelled Not Reportable Neutrophils % (Manual) Cancelled Band Neutrophils % Cancelled Lymphocytes % (Manual) Cancelled Monocytes % (Manual) Cancelled Eosinophils % (Manual) Cancelled Basophils % (Manual) Cancelled Metamyelocytes % Cancelled Myelocytes % Cancelled Promyelocytes % Cancelled Blast Cells % Cancelled Plasma Cell % (Manual) Cancelled Other Cells % Cancelled Lymphocytes # Cancelled Nucleated RBCs/100 WBC Cancelled Differential Comment Cancelled SCANNED Diff Path Review Cancelled Hypersegmented Neuts Cancelled Atypical Lymphocytes Cancelled Reactive Lymphocytes Cancelled Smudge Cells Cancelled Eosinophilia # Cancelled Basophilia # Cancelled Toxic Granulation Cancelled Dohle Bodies Cancelled Abner Rods Cancelled Platelet Estimate Cancelled Plt Morphology Comment Cancelled RBC Morphology Cancelled Polychromasia Cancelled Hypochromasia Cancelled Poikilocytosis Cancelled Basophilic Stippling Cancelled Anisocytosis Cancelled Microcytosis Cancelled Macrocytosis Cancelled Spherocytes Cancelled Sickle Cells Cancelled Target Cells Cancelled Tear Drop Cells Cancelled Ovalocytes Cancelled Stomatocytes Cancelled [place] Bodies Cancelled [place] Cells Cancelled Bite Cells Cancelled Acanthocytes (Spur) Cancelled Rouleaux Cancelled Schistocytes Cancelled Specimen Type Sample Site pH Bicarbonate Actual POC Total CO2 Base Excess O2 Saturation O2 % ABG pCO2 ABG pO2 Respiration Rate O2 Delivery Device Vent Mode Tidal Volume POC PEEP Blood Gas Notified Whom Blood Gas Notified Time Sodium 135 L Potassium 4.0 Chloride 99 Carbon Dioxide 26.0 Anion Gap 10 BUN 24 H Creatinine 0.99 Estim Creat Clear Calc 71.97 Est GFR (MDRD) Af Amer 97 Est GFR (MDRD) Non-Af 80 BUN/Creatinine Ratio 24.1 H Glucose 373 H Calcium 8.4 L Magnesium Total Creatine Kinase B-Natriuretic Peptide Triglycerides Vancomycin Trough POC Glucose 07/23/18 07/23/18 07/24/18 12:58 17:58 00:42 WBC Corrected WBC RBC Hgb Hct MCV MCH MCHC RDW RDW Differential Plt Count MPV Immature Gran % (Auto) Neut % (Auto) Lymph % (Auto) [place] % (Auto) Eos % (Auto) Baso % (Auto) Immature Gran # (Auto) Absolute Neuts (auto) Absolute Lymphs (auto) Absolute Monos (auto) Total Counted Neutrophils % (Manual) Band Neutrophils % Lymphocytes % (Manual) Monocytes % (Manual) Eosinophils % (Manual) Basophils % (Manual) Metamyelocytes % Myelocytes % Promyelocytes % Blast Cells % Plasma Cell % (Manual) Other Cells % Lymphocytes # Nucleated RBCs/100 WBC Differential Comment Diff Path Review Hypersegmented Neuts Atypical Lymphocytes Reactive Lymphocytes Smudge Cells Eosinophilia # Basophilia # Toxic Granulation Dohle Bodies Abner Rods Platelet Estimate Plt Morphology Comment RBC Morphology Polychromasia Hypochromasia Poikilocytosis Basophilic Stippling Anisocytosis Microcytosis Macrocytosis Spherocytes Sickle Cells Target Cells Tear Drop Cells Ovalocytes Stomatocytes [place] Bodies Julia Cells Bite Cells Acanthocytes (Spur) Rouleaux Schistocytes Specimen Type Sample Site pH Bicarbonate Actual POC Total CO2 Base Excess O2 Saturation O2 % ABG pCO2 ABG pO2 Respiration Rate O2 Delivery Device Vent Mode Tidal Volume POC PEEP Blood Gas Notified Whom Blood Gas Notified Time Sodium Potassium Chloride Carbon Dioxide Anion Gap BUN Creatinine Estim Creat Clear Calc Est GFR (MDRD) Af Amer Est GFR (MDRD) Non-Af BUN/Creatinine Ratio Glucose Calcium Magnesium Total Creatine Kinase B-Natriuretic Peptide Triglycerides Vancomycin Trough POC Glucose 390 H 397 H 407 H 07/24/18 07/24/18 07/24/18 00:45 00:45 05:54 WBC Corrected WBC RBC Hgb Hct MCV MCH MCHC RDW RDW Differential Plt Count MPV Immature Gran % (Auto) Neut % (Auto) Lymph % (Auto) [place] % (Auto) Eos % (Auto) Baso % (Auto) Immature Gran # (Auto) Absolute Neuts (auto) Absolute Lymphs (auto) Absolute Monos (auto) Total Counted Neutrophils % (Manual) Band Neutrophils % Lymphocytes % (Manual) Monocytes % (Manual) Eosinophils % (Manual) Basophils % (Manual) Metamyelocytes % Myelocytes % Promyelocytes % Blast Cells % Plasma Cell % (Manual) Other Cells % Lymphocytes # Nucleated RBCs/100 WBC Differential Comment Diff Path Review Hypersegmented Neuts Atypical Lymphocytes Reactive Lymphocytes Smudge Cells Eosinophilia # Basophilia # Toxic Granulation Dohle Bodies Abner Rods Platelet Estimate Plt Morphology Comment RBC Morphology Polychromasia Hypochromasia Poikilocytosis Basophilic Stippling Anisocytosis Microcytosis Macrocytosis Spherocytes Sickle Cells Target Cells Tear Drop Cells Ovalocytes Stomatocytes [place] Bodies [place] Cells Bite Cells Acanthocytes (Spur) Rouleaux Schistocytes Specimen Type Sample Site pH Bicarbonate Actual POC Total CO2 Base Excess O2 Saturation O2 % ABG pCO2 ABG pO2 Respiration Rate O2 Delivery Device Vent Mode Tidal Volume POC PEEP Blood Gas Notified Whom Blood Gas Notified Time Sodium Potassium Chloride Carbon Dioxide Anion Gap BUN Creatinine Estim Creat Clear Calc Est GFR (MDRD) Af Amer Est GFR (MDRD) Non-Af BUN/Creatinine Ratio Glucose Calcium Magnesium Total Creatine Kinase 85 B-Natriuretic Peptide Triglycerides 163 Vancomycin Trough 5.4 POC Glucose 402 H 07/24/18 07/24/18 07/24/18 10:20 11:17 17:15 WBC Corrected WBC RBC Hgb Hct MCV MCH MCHC RDW RDW Differential Plt Count MPV Immature Gran % (Auto) Neut % (Auto) Lymph % (Auto) [place] % (Auto) Eos % (Auto) Baso % (Auto) Immature Gran # (Auto) Absolute Neuts (auto) Absolute Lymphs (auto) Absolute Monos (auto) Total Counted Neutrophils % (Manual) Band Neutrophils % Lymphocytes % (Manual) Monocytes % (Manual) Eosinophils % (Manual) Basophils % (Manual) Metamyelocytes % Myelocytes % Promyelocytes % Blast Cells % Plasma Cell % (Manual) Other Cells % Lymphocytes # Nucleated RBCs/100 WBC Differential Comment Diff Path Review Hypersegmented Neuts Atypical Lymphocytes Reactive Lymphocytes Smudge Cells Eosinophilia # Basophilia # Toxic Granulation Dohle Bodies Abner Rods Platelet Estimate Plt Morphology Comment RBC Morphology Polychromasia Hypochromasia Poikilocytosis Basophilic Stippling Anisocytosis Microcytosis Macrocytosis Spherocytes Sickle Cells Target Cells Tear Drop Cells Ovalocytes Stomatocytes [place] Bodies Julia Cells Bite Cells Acanthocytes (Spur) Rouleaux Schistocytes Specimen Type ART Sample Site L Brachial pH 7.38 Bicarbonate Actual 27.0 H POC Total CO2 28 Base Excess 2 O2 Saturation 90 L O2 % 100 ABG pCO2 45.6 H ABG pO2 61 L Respiration Rate 16 O2 Delivery Device Vent Vent Mode A-C Tidal Volume 500 POC PEEP 10 Blood Gas Notified Whom ICU Blood Gas Notified Time 1019 Sodium Potassium Chloride Carbon Dioxide Anion Gap BUN Creatinine Estim Creat Clear Calc Est GFR (MDRD) Af Amer Est GFR (MDRD) Non-Af BUN/Creatinine Ratio Glucose Calcium Magnesium Total Creatine Kinase B-Natriuretic Peptide Triglycerides Vancomycin Trough POC Glucose 400 H 374 H 07/25/18 07/25/18 07/25/18 00:26 05:25 05:25 WBC 6.4 Corrected WBC RBC 3.97 L Hgb 12.5 L Hct 39.0 L MCV 98.2 H MCH 31.5 MCHC 32.1 RDW 13.9 RDW Differential 49.6 H Plt Count 182 MPV 11.1 Immature Gran % (Auto) 0.600 Neut % (Auto) 83.3 H Lymph % (Auto) 7.9 L [place] % (Auto) 7.7 Eos % (Auto) 0.0 Baso % (Auto) 0.5 Immature Gran # (Auto) Absolute Neuts (auto) 5.3 Absolute Lymphs (auto) 0.50 L Absolute Monos (auto) Total Counted Not Reportable Neutrophils % (Manual) Band Neutrophils % Lymphocytes % (Manual) Monocytes % (Manual) Eosinophils % (Manual) Basophils % (Manual) Metamyelocytes % Myelocytes % Promyelocytes % Blast Cells % Plasma Cell % (Manual) Other Cells % Lymphocytes # Nucleated RBCs/100 WBC Differential Comment Diff Path Review May foll Hypersegmented Neuts Atypical Lymphocytes Reactive Lymphocytes Smudge Cells Eosinophilia # Basophilia # Toxic Granulation Dohle Bodies Abner Rods Platelet Estimate Plt Morphology Comment RBC Morphology Polychromasia Hypochromasia Poikilocytosis Basophilic Stippling Anisocytosis Microcytosis Macrocytosis Spherocytes Sickle Cells Target Cells Tear Drop Cells Ovalocytes Stomatocytes [place] Bodies [place] Cells Bite Cells Acanthocytes (Spur) Rouleaux Schistocytes Specimen Type Sample Site pH Bicarbonate Actual POC Total CO2 Base Excess O2 Saturation O2 % ABG pCO2 ABG pO2 Respiration Rate O2 Delivery Device Vent Mode Tidal Volume POC PEEP Blood Gas Notified Whom Blood Gas Notified Time Sodium 141 Potassium 4.5 Chloride 105 Carbon Dioxide 25.0 Anion Gap 11 BUN 56 H Creatinine 2.13 H Estim Creat Clear Calc 33.45 Est GFR (MDRD) Af Amer 40 L Est GFR (MDRD) Non-Af 33 L BUN/Creatinine Ratio 26.3 H Glucose 481 H* Calcium 7.7 L Magnesium 2.6 Total Creatine Kinase B-Natriuretic Peptide Triglycerides Vancomycin Trough POC Glucose 409 H 07/25/18 05:25 WBC Corrected WBC RBC Hgb Hct MCV MCH MCHC RDW RDW Differential Plt Count MPV Immature Gran % (Auto) Neut % (Auto) Lymph % (Auto) [place] % (Auto) Eos % (Auto) Baso % (Auto) Immature Gran # (Auto) Absolute Neuts (auto) Absolute Lymphs (auto) Absolute Monos (auto) Total Counted Neutrophils % (Manual) Band Neutrophils % Lymphocytes % (Manual) Monocytes % (Manual) Eosinophils % (Manual) Basophils % (Manual) Metamyelocytes % Myelocytes % Promyelocytes % Blast Cells % Plasma Cell % (Manual) Other Cells % Lymphocytes # Nucleated RBCs/100 WBC Differential Comment Diff Path Review Hypersegmented Neuts Atypical Lymphocytes Reactive Lymphocytes Smudge Cells Eosinophilia # Basophilia # Toxic Granulation Dohle Bodies Abner Rods Platelet Estimate Plt Morphology Comment RBC Morphology Polychromasia Hypochromasia Poikilocytosis Basophilic Stippling Anisocytosis Microcytosis Macrocytosis Spherocytes Sickle Cells Target Cells Tear Drop Cells Ovalocytes Stomatocytes [place] Bodies Julia Cells Bite Cells Acanthocytes (Spur) Rouleaux Schistocytes Specimen Type Sample Site pH Bicarbonate Actual POC Total CO2 Base Excess O2 Saturation O2 % ABG pCO2 ABG pO2 Respiration Rate O2 Delivery Device Vent Mode Tidal Volume POC PEEP Blood Gas Notified Whom Blood Gas Notified Time Sodium Potassium Chloride Carbon Dioxide Anion Gap BUN Creatinine Estim Creat Clear Calc Est GFR (MDRD) Af Amer Est GFR (MDRD) Non-Af BUN/Creatinine Ratio Glucose Calcium Magnesium Total Creatine Kinase B-Natriuretic Peptide 59.4 Triglycerides Vancomycin Trough POC Glucose Microbiology 07/24/18 10:10 Sputum, Tracheal Aspirate Gram Stain - Final 07/21/18 11:25 Sputum, Expectorated/Coughed Gram Stain - Final 07/21/18 11:25 Sputum, Expectorated/Coughed Respiratory Culture - Final Mixed normal respiratory laverne. No Streptococcus pneumoniae, beta-hemolytic Streptococcus or Staphylococcus aureus isolated. 07/21/18 11:55 Blood Culture (Wb) - Right Hand Blood Culture - Preliminary No growth in 48 hours. 07/21/18 11:45 Blood Culture (Wb) - Anticubital Right Blood Culture - Preliminary No growth in 48 hours. Clinical Impression(s) from Imaging Studies [facility] X-Ray 07/20/18 18:41 IMPRESSION: No evidence of obstruction or perforation. at 2003 Reported and signed by: Salinas Noriega MD Electronically Signed: Sailnas Noriega, at 20:02 EST Tel , Service support , Chest X-Ray 07/20/18 19:30 IMPRESSION: No radiographic evidence of acute cardiopulmonary disease. at 2002 Reported and signed by: Salinas Noriega MD Electronically Signed: Salinas Noriega, at 20:02 EST Tel , Service support , Abdomen X-Ray 07/21/18 11:07 IMPRESSION: Diffuse distention of bowel most likely ileus. Distal colonic obstruction not likely but possible. at 0143 Reported and signed by: Salinas Noriega MD Electronically Signed: Salinas Noriega, at 1:42 EST Tel , Service support , Chest X-Ray 07/22/18 09:37 IMPRESSION: Findings concerning for multifocal pneumonia in the appropriate clinical setting with underlying alveolar edema not completely excluded. Recommend follow-up imaging in 4-6 weeks after appropriate treatment. Electronically Signed: Pacheco Galo DO at 9:56 EST , Service support , Chest CTA 07/22/18 17:51 IMPRESSION: No pulmonary embolus. Multifocal bilateral airspace disease in the lungs similar to the most recent chest radiograph but increased compared to 07/20/18 compatible with multifocal pneumonia versus a noninfectious inflammatory pneumonitis. Small, 4.0 cm, ascending thoracic aortic aneurysm with no hemorrhage or dissection. Individualized dose optimization techniques were used for this CT. at 1927 Reported and signed by: Salinas Noriega MD Electronically Signed: Salinas Noriega, at 19:26 EST Tel , Service support , Chest X-Ray 07/24/18 08:42 IMPRESSION: Progressive bilateral airspace disease. The tip of the endotracheal tube is at 4.1 cm proximal to the sunshine. The tip of the orogastric tube is in the body of the stomach. Electronically Signed: Shar Castillo, at 14:18 EST , Service support , Medical Necessity - Tobacco Use Smoking Status: Former smoker Tobacco Use: Non-smoker Assessment/Plan All Active Problems (Last Reviewed 07/20/18 @ 21:39 by Joaquín Laughlin DO) Acute bronchitis (Acute) Influenza A (Acute) Constipation (Acute) PAUL (acute kidney injury) (Acute) Paroxysmal atrial fibrillation (Acute) Hyperlipidemia (Acute) RECOMMENDATIONS: 1. Continue current supportive measures with lung protective ventilatory strategy. 2. Wean FiO2 and PEEP to maintain an oxygen saturation at or above 90%. 3. Continue tube feeds as ordered. 4. Obtain repeat arterial blood gas and plain film chest x-ray. 5. Infectious diseases consultation pending. 6. Continue Tamiflu and antibiotics as ordered. 7. Continue appropriate ICU prophylaxis 8. Continue bronchodilators and IV steroids. 9. Continue current sedation regimen. Given the patient's tenuous respiratory status, maintain a RASS of at least -3 for now. 10. Nephrology consultation for PAUL. IMPRESSIONS: 1. Acute hypoxemic respiratory failure secondary to influenza A infection and severe community-acquired pneumonia/evolving ARDS The patient has a questionable baseline history of COPD. He was seen in the pulmonary medicine clinic 1 year ago, at which time, pulmonary function studies were ordered. However, the patient never followed up. Although the patient was admitted to the hospital with influenza A and a plain film chest x-ray which was largely unremarkable, follow-up chest imaging subsequently revealed evidence of evolving multifocal pneumonia. The patient has essentially gone on to develop full-blown ARDS. He did require intubation on the morning of July 24. We will plan to continue current supportive measures with invasive mechanical ventilatory support and tube feeds as ordered. Wean FiO2 to maintain an oxygen saturation at or above 90%. Obtain repeat arterial blood gas and plain film chest x-ray this morning. Continue bronchodilators and IV steroids as ordered. Continue Pepcid and Lovenox for prophylaxis. Given that the patient is on methotrexate as an outpatient, will obtain infectious diseases consultation as well. 2. Acute kidney injury Nephrology was consulted to assist with management. Avoid nephrotoxic agents. Continue to monitor urine output. 3. Known history of pulmonary nodules The patient is actually past due for a repeat CT chest due to his previously identified pulmonary nodules in March 2017. 4. Obstructive sleep apnea The patient is currently noncompliant with the use of nocturnal noninvasive positive pressure ventilation. 5. Rheumatoid arthritis/atrial fibrillation status post ablation/coronary artery disease/tobacco dependency currently in remission Complicates care, management, recovery and prognosis. Continue home medications as indicated. Insulin regimen will be increased due to persistent hyperglycemia. TIME: 45 minutes of critical care time, independent of procedures, was spent addressing the patient's acute hypoxemic respiratory failure, influenza A infection, severe community-acquired pneumonia, ARDS, acute kidney injury, history of pulmonary nodules, obstructive sleep apnea, review of all data and collaboration with the care team. ([id number]) Code Visit [id number]: [id number] Critical care first hour
[2018-07-25 07:46] LABS: Bedside Glucose 461 mg/dL (70-110)
[2018-07-25 07:57] LABS: Base Excess 0 mmol/L (-2 to +2); Bicarbonate 25.3 mmol/L (22-26); Blood Gas Specimen Type ART; FI02 100; Mode A-C; O2 Delivery Device Vent; PEEP 10; PO2 67 mmHG (75-100); RR 16; SITE R Radial; SO2 92 % (95-99); Time Given 745; Total Carbon Dioxide 27 mmol/L; Vt 450; pCO2 45.6 mmHg (35-45); pH 7.35 (7.35-7.45)
--- NOTE | 2018-07-25 08:19 | PN_ITS ---
Patient Problems: Active and Suspected Problems (Last Reviewed 07/20/18 @ 21:39 by Joaquín Laughlin DO) Acute bronchitis (Acute) Influenza A (Acute) Constipation (Acute) Subjective: Patient was seen and examined. Intubated yesterday. He was relatively hypotensive. Scheduled metoprolol doses IV was changed to as needed Patient did not seem to tolerate event with least movement. Currently on PEEP 10, FiO2 100%. Achieved maximum doses of propofol and fentanyl. Objective: General: Alert, Oriented x3, Cooperative, - - on Bipap at the time of being examined, obese, in mild respiratory distress HEENT: Atraumatic, PERRLA, EOMI, Normocephalic Oral: Dry Mucosa Neck: Supple, No JVD, Negative Carotid Bruits Lungs: Normal air movement, Diminished Cardiovascular: Regular rate, Normal S1, Normal S2, Irregular Rate, Tachycardic - HR ~130s Abdomen: Bowel Sounds Present, Soft, Non-Distended, No Hepato-splenomegaly, Tender - generalised without guarding or RBT Extremities: No edema Skin: No rashes, No breakdown Musculoskeletal: No Tenderness to Palpation of Joints or Extremities Lymphatic: No Cervical, Supraclavicular, or Inguinal Adenopathy Neurological: Cranial nerves II-XII grossly intact, Neuro grossly intact Psych/Mental Status: Normal Affect, Appropriate Vitals/I&O's: Vital Signs Temp Pulse Resp BP Pulse Ox 99.0 F 66 17 124/63 H 92 07/25/18 04:00 07/25/18 07:00 07/25/18 07:00 07/25/18 07:00 07/25/18 07:00 Oxygen Flow Rate (L/min) 15 Oxygen Delivery Method Mechanical Ventilator Weight: 116 kg Body Mass Index (BMI) 38.6 Intake and Output for Last 24 Hours 07/23/18 07/24/18 07/25/18 23:59 23:59 23:59 Intake Total 1757.7 / 1757.7 3419 / 3419 3431.6 / 3431.6 Output Total 1050 / 1050 1550 / 1550 550 / 550 Balance 707.7 / 707.7 1869 / 1869 2881.6 / 2881.6 Microbiology Past 72 Hours 07/24/18 10:10 Sputum, Tracheal Aspirate Gram Stain - Final 07/21/18 11:25 Sputum, Expectorated/Coughed Gram Stain - Final 07/21/18 11:25 Sputum, Expectorated/Coughed Respiratory Culture - Final Mixed normal respiratory laverne. No Streptococcus pneumoniae, beta-hemolytic Streptococcus or Staphylococcus aureus isolated. 07/21/18 11:55 Blood Culture (Wb) - Right Hand Blood Culture - Preliminary No growth in 48 hours. 07/21/18 11:45 Blood Culture (Wb) - Anticubital Right Blood Culture - Preliminary No growth in 48 hours. Laboratory Results 07/24/18 00:45: Total Creatine Kinase 85, Triglycerides 163 07/24/18 10:20: Specimen Type ART, Sample Site L Brachial, pH 7.38, Bicarbonate Actual 27.0 H, POC Total CO2 28, Base Excess 2, O2 Saturation 90 L, O2 % 100, ABG pCO2 45.6 H, ABG pO2 61 L, Respiration Rate 16, O2 Delivery Device Vent, Vent Mode A-C, Tidal Volume 500, POC PEEP 10, Blood Gas Notified Whom ICU MD, Blood Gas Notified Time 1019 07/24/18 11:17: POC Glucose 400 H 07/24/18 17:15: POC Glucose 374 H 07/25/18 00:26: POC Glucose 409 H 07/25/18 05:25: WBC 6.4, RBC 3.97 L, Hgb 12.5 L, Hct 39.0 L, MCV 98.2 H, MCH 31.5, MCHC 32.1, RDW 13.9, RDW Differential 49.6 H, Plt Count 182, MPV 11.1, Immature Gran % (Auto) 0.600, Neut % (Auto) 83.3 H, Lymph % (Auto) 7.9 L, [place] % (Auto) 7.7, Eos % (Auto) 0.0, Baso % (Auto) 0.5, Absolute Neuts (auto) 5.3, Absolute Lymphs (auto) 0.50 L, Total Counted Not Reportable, Differential Comment , Diff Path Review September07/25/18 05:25: Sodium 141, Potassium 4.5, Chloride 105, Carbon Dioxide 25.0, Anion Gap 11, BUN 56 H, Creatinine 2.13 H, Estim Creat Clear Calc 33.45, Est GFR (MDRD) Af Amer 40 L, Est GFR (MDRD) Non-Af 33 L, BUN/Creatinine Ratio 26.3 H, Glucose 481 H*, Calcium 7.7 L, Magnesium 2.6 07/25/18 05:25: B-Natriuretic Peptide 59.4 07/25/18 05:41: POC Glucose 461 H* 07/25/18 07:50: Specimen Type ART, Sample Site R Radial, pH 7.35, Bicarbonate Actual 25.3, POC Total CO2 27, Base Excess 0, O2 Saturation 92 L, O2 % 100, ABG pCO2 45.6 H, ABG pO2 67 L, Mir Test NA, Respiration Rate 16, O2 Delivery Device Vent, Minute Volume 8.00, Vent Mode A-C, Tidal Volume 450, POC PEEP 10, Blood Gas Notified Whom ICU MD, Blood Gas Notified Time 745 Current Medications Acetaminophen (Tylenol Liquid) 650 mg GT Q4H PRN PRN PRN Reason: FEVER Albuterol Sulfate (Ventolin Aerosols) 2.5 mg INHALATION Q2H PRN PRN PRN Reason: SHORTNESS OF BREATH Albuterol/Ipratropium (Duoneb) 3 ml INHALATION Q4H.RT [facility] Last Admin: 07/25/18 07:02 Dose: 3 ml Aspirin (Aspirin, Baby) 81 mg GT DAILY@0800 [facility] Last Admin: 07/24/18 11:18 Dose: 81 mg Chlorhexidine Gluconate () 15 ml PO BID [facility] Last Admin: 07/24/18 21:31 Dose: 15 ml Chlorhexidine Gluconate () 1 each TOPICAL DAILY [facility] Last Admin: 07/25/18 04:27 Dose: 1 each Enoxaparin Sodium (Lovenox) 40 mg SC DAILY@1000 [facility] Last Admin: 07/24/18 11:15 Dose: 40 mg Famotidine (Pepcid) 20 mg GT BID [facility] Last Admin: 07/24/18 21:15 Dose: 20 mg Folic Acid (Folic Acid) 1 mg GT DAILYCM [facility] Last Admin: 07/24/18 11:19 Dose: 1 mg Piperacillin Sod/Tazobactam (Sod 3.375 gm/ Sodium Chloride) 50 mls @ 12.5 mls/hr IV Q8 [facility] Last Admin: 07/25/18 05:37 Dose: 12.5 mls/hr Sodium Chloride () 250 mls @ 15 mls/hr IV .[id number] PRN PRN Reason: SALINE FLUSH Fentanyl () 100 mls @ 5 mls/hr IV .Q20H [facility] Last Admin: 07/25/18 07:10 Dose: 5 mls/hr Vancomycin IV Pharmacy to Dose (1 ea/ Sodium Chloride) 500 mls @ 250 mls/hr IV PRN PRN; Protocol PRN Reason: Increase trough goal to 15-20 Vancomycin HCl 1,750 mg/ (Sodium Chloride) 535 mls @ 250 mls/hr IV Q12H [facility] Last Admin: 07/25/18 00:29 Dose: 250 mls/hr Enteral Nutritional Formula (Vital Af 1.2 Rick Liquid) 1,000 mls @ 20 mls/hr GT .Q48H [facility] Last Admin: 07/24/18 15:44 Dose: 20 mls/hr Propofol (Diprivan) 1,000 mg in 100 mls @ 6.906 mls/hr CONT INF .Q12H [facility] Last Admin: 07/25/18 07:57 Dose: 6.906 mls/hr Insulin Glargine (Lantus (Bkc)) 30 units SC 06,18 [facility] Last Admin: 07/25/18 05:43 Dose: 30 u Insulin Human Lispro (Humalog Kwikpen (Bkc)) 0 unit SC Q6 [facility]; Protocol Last Admin: 07/25/18 07:05 Dose: 16 u Magnesium Hydroxide (Milk Of Magnesia) 30 ml GT DAILY PRN PRN PRN Reason: Constipation Methylprednisolone (Solu-Medrol) 40 mg IV Q8 [facility] Last Admin: 07/25/18 05:37 Dose: 40 mg Ondansetron HCl (Zofran) 4 mg IV Q8H PRN PRN PRN Reason: NAUSEA Oseltamivir Phosphate (Tamiflu) 75 mg GT BID [facility] Stop: 07/26/18 22:01 Last Admin: 07/24/18 21:15 Dose: 75 mg Polyethylene Glycol (Miralax) 17 gm GT DAILY [facility] Pravastatin Sodium (Pravachol) 80 mg PO QHS [facility] Last Admin: 07/24/18 21:15 Dose: 80 mg Sodium Chloride () 5 - 15 ml IV UD PRN PRN Reason: SALINE FLUSH Last Admin: 07/24/18 09:16 Dose: 15 ml Medical Necessity - Tobacco Use Smoking Status: Former smoker Tobacco Use: Non-smoker Assessment/Plan All Active Problems (Last Reviewed 07/20/18 @ 21:39 by Joaquín Laughlin DO) Acute bronchitis (Acute) Influenza A (Acute) Constipation (Acute) Paroxysmal atrial fibrillation (Acute) Hyperlipidemia (Acute) 63-year-old male with multiple comorbidities including nicotine dependence, chronic atrial fibrillation status post ablation, CAD status post PCI admitted with fever chills cough shortness of breath ongoing for 6 days. Patient was found to be positive for influenza and his imaging had shown pneumonia. Patient had gotten worse and was transferred to the ICU, continues to be poor on BiPAP. 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 1. Acute hypoxic respiratory failure secondary to multifocal bilateral community-acquired pneumonia/acute influenza bronchitis Remains sedated, intubated, repeat chest x-ray this morning shows improvement in aeration of the lungs, residual bilateral airspace disease We will continue to monitor on mechanical ventilator, soil fertility extension specialist following 2. Acute influenza bronchitis, on Tamiflu, IV solumedrol 3. CAP, multifocal, blood cultures are negative, remains on IV vancomycin and Zosyn, acute psychosis, ID consulted, will follow up on recommendations 4. PAUL likely multifactorial, secondary to ongoing sepsis, poor p.o. intake, dehydration, BN pep this morning is 59.4, increasing creatinine from 0.99 to 2.13 Would do urine studies-urine sodium, urine creatinine, nephrology consult Continue to hydrate patient with tube feeds with flushes 5. A. fib with RVR, patient alternating between sinus tachycardia and A. fib, history of ablation, patient is now in normal sinus rhythm Echo shows EF of 55%, stage II diastolic dysfunction, LVH Will switch patient from IV metoprolol to metoprolol 25mg GT bid with holding parameters. 6. CAD status post PCI, on aspirin 7. History of MIL, noncompliant with CPAP, RA, pulmonary nodule or stable for now, will be followed up in the outpatient 8. DVT prophylaxis with Lovenox subcu Code Visit Inpatient E&M: [id number] Subs Hosp L3
--- NOTE | 2018-07-25 08:20 | RAD_ITS ---
STUDY: X-RAY CHEST REASON FOR EXAM: Male, 63 years old. Shortness of breath/dyspnea. TECHNIQUE: Single AP portable view of the chest. COMPARISON: Comparison is made with prior study dated July 24, 2018. FINDINGS: And endotracheal tubes in situ. The tip is a 1.9 cm proximal to the sunshine. An orogastric tube is seen with the tip below the left hemidiaphragm. EKG electrodes are seen. Since prior study, there has been improved aeration of both lungs although persistent bilateral airspace disease is seen. There is no demonstrated pleural abnormality. There is borderline cardiomegaly. Normal mediastinum and noelle. Normal visualized pulmonary arteries. Normal visualized aortic arch and descending thoracic aorta. There are diffuse degenerative changes of the visualized thoracic spine. Normal visualized ribs, clavicles, and shoulders. There is no demonstrated abnormality of the visualized soft tissue structures of the upper abdomen. RAD/Chest 1 View (Portable) IMPRESSION: Since prior study, there has been improved aeration of both lungs although residual bilateral airspace disease is seen. Electronically Signed: Shar Castillo, at 9:08 EST , Service support ,
[2018-07-25 10:36] LABS: Pathologist Review Reviewed
[2018-07-25] MEDS: Enoxaparin 40 MG/0.4 ML Syringe SC (10:45)
[2018-07-25] MEDS: Famotidine 20 MG Tablet GT ×2 (10:45→22:24)
[2018-07-25] MEDS: Aspirin 81 MG TAB.CHEW GT (10:45)
[2018-07-25] MEDS: Polyethylene Glycol 3350 17 GM PACKET GT (10:46)
[2018-07-25] MEDS: Folic Acid 1 MG Tablet GT (10:46)
[2018-07-25] MEDS: QUEtiapine 25 MG Tablet 50 MG GT ×2 (10:46→22:19)
[2018-07-25] MEDS: Chlorhexidine 15 ML PO ×2 (10:47→22:20)
--- NOTE | 2018-07-25 11:02 | PCM.HP.ID ---
Problem List (1) Influenza A Status: Acute Reason for Consult: resp failure Consulted by: Dr. Ponce History of Present Illness: The patient is a 63 year old M with h/o CAD who presented 07/20 with 5-6 days of cough, SOB, not feeling well. Came to ED, dx with flu A, admitted. Seen by pulm 07/21, started on levaquin and tamiflu. Resp status worsened, changed to zosyn, vanc added 07/24 and he was intubated. Now on vent, 90% FiO2, new PAUL. Pt unable to provide history or ROS - Medical History Past Medical History (Chronic Problems): Chronic Problems (Last Reviewed 07/20/18 @ 21:39 by Joaquín Laughlin DO) Presence of stent in coronary artery (Chronic ~03/15/06) PTCA/RACHEL to Mid RCA 03/15/06 Atherosclerotic heart disease of [place] coronary artery without angina pectoris (Chronic) PTCA/RACHEL to Mid RCA 03/15/06 HTN (hypertension) (Chronic) Allergies/Adverse Reactions: Allergies atorvastatin [From Lipitor] Adverse Reaction (Severe, Verified 03/13/18 09:46) Myalgias IVP Dye Adverse Reaction (Unknown, Uncoded 09/08/17 14:23) Unknown Home Medications: Ambulatory Orders Medication Instructions Recorded tamsulosin 0.4 mg capsule 0.4 mg PO DAILY 06/29/17 methotrexate sodium 2.5 mg tablet 17.5 mg PO TU tab 09/08/17 Aspirin [Aspir-Low] 81 mg PO DAILY 07/20/18 Folic Acid 1 mg PO DAILY 07/20/18 Metoprolol Succinate [Toprol Xl] 50 mg PO DAILY 07/20/18 Pravastatin Sodium 80 mg PO QHS 07/20/18 - Social History SMOKING STATUS:: Former smoker Vital Signs Temp Pulse Resp BP Pulse Ox 98.4 F 63 19 H 124/63 H 95 07/25/18 08:00 07/25/18 09:10 07/25/18 09:10 07/25/18 08:00 07/25/18 09:10 Oxygen Flow Rate (L/min) 15 Oxygen Delivery Method Mechanical Ventilator Weight: 116 kg Body Mass Index (BMI) 38.6 Microbiology Past 72 Hours 07/24/18 10:10 Gram Stain - Final Sputum, Tracheal Aspirate Respiratory Culture - Preliminary Culture exhibits no growth. 07/21/18 11:25 Gram Stain - Final Sputum, Expectorated/Coughed Respiratory Culture - Final Mixed normal respiratory laverne. No Streptococcus pneumoniae, beta-hemolytic Streptococcus or Staphylococcus aureus isolated. 07/21/18 11:55 Blood Culture - Preliminary Blood Culture (Wb) - Right Hand No growth in 48 hours. 07/21/18 11:45 Blood Culture - Preliminary Blood Culture (Wb) - Anticubital Right No growth in 48 hours. Laboratory Tests Past 24 Hrs 07/25/18 07/25/18 07/25/18 05:25 05:25 05:25 WBC 6.4 RBC 3.97 L Hgb 12.5 L Hct 39.0 L MCV 98.2 H MCH 31.5 MCHC 32.1 RDW 13.9 RDW Differential 49.6 H Plt Count 182 MPV 11.1 Immature Gran % (Auto) 0.600 Neut % (Auto) 83.3 H Lymph % (Auto) 7.[address] [place] % (Auto) 7.7 Eos % (Auto) 0.0 Baso % (Auto) 0.5 Absolute Neuts (auto) 5.3 Absolute Lymphs (auto) 0.50 L Total Counted Not Reportable Differential Comment Diff Path Review Reviewed Specimen Type Sample Site pH Bicarbonate Actual POC Total CO2 Base Excess O2 Saturation O2 % ABG pCO2 ABG pO2 Mir Test Respiration Rate O2 Delivery Device Minute Volume Vent Mode Tidal Volume POC PEEP Blood Gas Notified Whom Blood Gas Notified Time Sodium 141 Potassium 4.5 Chloride 105 Carbon Dioxide 25.0 Anion Gap 11 BUN 56 H Creatinine 2.13 H Estim Creat Clear Calc 33.45 Est GFR (MDRD) Af Amer 40 L Est GFR (MDRD) Non-Af 33 L BUN/Creatinine Ratio 26.3 H Glucose 481 H* Calcium 7.7 L Magnesium 2.6 B-Natriuretic Peptide 59.4 07/25/18 07:50 WBC RBC Hgb Hct MCV MCH MCHC RDW RDW Differential Plt Count MPV Immature Gran % (Auto) Neut % (Auto) Lymph % (Auto) [place] % (Auto) Eos % (Auto) Baso % (Auto) Absolute Neuts (auto) Absolute Lymphs (auto) Total Counted Differential Comment Diff Path Review Specimen Type ART Sample Site R Radial pH 7.35 Bicarbonate Actual 25.3 POC Total CO2 27 Base Excess 0 O2 Saturation 92 L O2 % 100 ABG pCO2 45.6 H ABG pO2 67 L Mir Test NA Respiration Rate 16 O2 Delivery Device Vent Minute Volume 8.00 Vent Mode A-C Tidal Volume 450 POC PEEP 10 Blood Gas Notified Whom ICU MD Blood Gas Notified Time 745 Sodium Potassium Chloride Carbon Dioxide Anion Gap BUN Creatinine Estim Creat Clear Calc Est GFR (MDRD) Af Amer Est GFR (MDRD) Non-Af BUN/Creatinine Ratio Glucose Calcium Magnesium B-Natriuretic Peptide - Other Studies Radiology: [] reviewed Other Studies: [] Route of nutrition/ use of supplements: [] Nutritional Intake: [] IV Site: [] Qiu Catheter: [] - Physical Exam General: - - intubated, sedated HEENT: Atraumatic, PERRLA Neck: Supple, No Nodes Lungs: Diminished - in bases Cardiovascular: Tachycardic Abdomen: Soft, Non Tender, Non-Distended Extremities: No edema Skin: No rashes IV Site: Peripheral, without redness Musculoskeletal: No Tenderness to Palpation of Joints or Extremities - Assessment/Plan Antibiotics: [] Assessment/Plan: [] Active and Suspected Problems (Last Reviewed 07/20/18 @ 21:39 by Joaquín Laughlin DO) Acute bronchitis (Acute) Influenza A (Acute) Constipation (Acute) Acute hypoxic resp failure with ARDS and flu A - now with PAUL. On tamiflu. Will adjust doses of tamiflu and zosyn. Sputum gram stain 3/4 with no GPC seen. MRSA screening pcr was neg. Will stop vanc. Will follow, thank you, d/w Dr. Ponce.
[2018-07-25 11:41] LABS: Bedside Glucose 404 mg/dL (70-110)
--- NOTE | 2018-07-25 11:52 | PCM.CONS.R ---
Problem List (1) APUL (acute kidney injury) Status: Acute Consultation - Renal 07/25/18 PCP/ Referring MD: Requesting physician: Dr Awad Primary care physician: Cesar Andres Reason for Consultation:: PAUL - History of Present Illness History of Present Illness: The patient is a 63 year old M admitted to hospital about 4 days ago. presented to hospital with fever, chills, generalized weakness, malaise. found to have influenza A on admission. respiratory status has worsened over the last couple days, got intubated now. FiO2 is at 100% and PEEP 10 as of this morning, creatinine at baseline is normal at less than 1 urine output so far is ok creatinine bumped today last contrast was on of this month abx listed as below - Allergies Allergies: Allergies atorvastatin [From Lipitor] Adverse Reaction (Severe, Verified 03/13/18 09:46) Myalgias IVP Dye Adverse Reaction (Unknown, Uncoded 09/08/17 14:23) Unknown - Current Medications Current Medications: Current Medications Acetaminophen (Tylenol Liquid) 650 mg GT Q4H PRN PRN PRN Reason: FEVER Albuterol Sulfate (Ventolin Aerosols) 2.5 mg INHALATION Q2H PRN PRN PRN Reason: SHORTNESS OF BREATH Albuterol/Ipratropium (Duoneb) 3 ml INHALATION Q4H.RT [facility] Last Admin: 07/25/18 07:02 Dose: 3 ml Aspirin (Aspirin, Baby) 81 mg GT DAILY@0800 [facility] Last Admin: 07/25/18 10:45 Dose: 81 mg Chlorhexidine Gluconate () 15 ml PO BID [facility] Last Admin: 07/25/18 10:47 Dose: 15 ml Chlorhexidine Gluconate () 1 each TOPICAL DAILY [facility] Last Admin: 07/25/18 04:27 Dose: 1 each Enoxaparin Sodium (Lovenox) 40 mg SC DAILY@1000 [facility] Last Admin: 07/25/18 10:45 Dose: 40 mg Famotidine (Pepcid) 20 mg GT BID [facility] Last Admin: 07/25/18 10:45 Dose: 20 mg Folic Acid (Folic Acid) 1 mg GT DAILYCM [facility] Last Admin: 07/25/18 10:46 Dose: 1 mg Sodium Chloride () 250 mls @ 15 mls/hr IV .[id number] PRN PRN Reason: SALINE FLUSH Fentanyl () 100 mls @ 5 mls/hr IV .Q20H [facility] Last Admin: 07/25/18 11:48 Dose: 5 mls/hr Vancomycin HCl 1,750 mg/ (Sodium Chloride) 535 mls @ 250 mls/hr IV Q12H [facility] Last Admin: 07/25/18 00:29 Dose: 250 mls/hr Propofol (Diprivan) 1,000 mg in 100 mls @ 6.906 mls/hr CONT INF .Q12H [facility] Last Admin: 07/25/18 10:44 Dose: 6.906 mls/hr Piperacillin Sod/Tazobactam (Sod 3.375 gm/ Sodium Chloride) 50 mls @ 12.5 mls/hr IV Q12 [facility] Insulin Glargine (Lantus (Bkc)) 50 units SC [facility] Insulin Human Lispro (Humalog Kwikpen (Bkc)) 0 unit SC Q4 [facility]; Protocol Last Admin: 07/25/18 10:55 Dose: 14 u Magnesium Hydroxide (Milk Of Magnesia) 30 ml GT DAILY PRN PRN PRN Reason: Constipation Methylprednisolone (Solu-Medrol) 40 mg IV Q8 [facility] Last Admin: 07/25/18 05:37 Dose: 40 mg Metoprolol Tartrate (Lopressor (Beta Patricia)) 25 mg GT BID [facility] Ondansetron HCl (Zofran) 4 mg IV Q8H PRN PRN PRN Reason: NAUSEA Oseltamivir Phosphate (Tamiflu) 30 mg PO X1 ONE Stop: 07/26/18 09:01 Polyethylene Glycol (Miralax) 17 gm GT DAILY [facility] Last Admin: 07/25/18 10:46 Dose: 17 gm Pravastatin Sodium (Pravachol) 80 mg PO QHS [facility] Last Admin: 07/24/18 21:15 Dose: 80 mg Quetiapine Fumarate (Seroquel) 50 mg GT BID [facility] Senna/Docusate Sodium (Senokot-S, Ankita-Colace) 2 tablet PO BID [facility] Sodium Chloride () 5 - 15 ml IV UD PRN PRN Reason: SALINE FLUSH Last Admin: 07/24/18 09:16 Dose: 15 ml - Past Medical History Past Medical History (Chronic Problems): Chronic Problems (Last Reviewed 07/20/18 @ 21:39 by Joaquín Laughlin DO) Presence of stent in coronary artery (Chronic ~03/15/06) PTCA/RACHEL to Mid RCA 03/15/06 Atherosclerotic heart disease of [place] coronary artery without angina pectoris (Chronic) PTCA/RACHEL to Mid RCA 03/15/06 HTN (hypertension) (Chronic) - Social History Smoking Status: Former smoker Alcohol: None Drugs: None - Family History Maternal Family History: Family History (Last Reviewed 07/20/18 @ 21:40 by Joaquín Laughlin DO) Son Diabetes Mother Myocardial infarction, Onset Age: 73 Father No problems noted. Son Diabetes Review of Systems Unable to obtain accurate/complete ROS d/t: due to intubated status Patient Problems: Active and Suspected Problems (Last Reviewed 07/20/18 @ 21:39 by Joaquín Laughlin DO) Acute bronchitis (Acute) Influenza A (Acute) Constipation (Acute) PAUL (acute kidney injury) (Acute) - Physical Exam Neck: Supple, No JVD, Negative Carotid Bruits Lungs: Clear to auscultation, Normal air movement Cardiovascular: Regular rate, No murmurs Abdomen: Bowel Sounds Present, Soft, Non Tender Extremities: No edema, Capillary Refill Less than 3 Seconds Skin: No rashes, No breakdown Musculoskeletal: No Tenderness to Palpation of Joints or Extremities Vital Signs Temp Pulse Resp BP Pulse Ox 98.2 F 63 15 112/62 93 07/25/18 10:00 07/25/18 11:00 07/25/18 11:00 07/25/18 11:00 07/25/18 11:00 Oxygen Flow Rate (L/min) 15 Oxygen Delivery Method Mechanical Ventilator Weight: 116 kg Body Mass Index (BMI) 38.6 Intake and Output for Last 24 Hours 07/23/18 07/24/18 07/25/18 23:59 23:59 23:59 Intake Total 1757.7 / 1757.7 3419 / 3419 4705.6 / 4705.6 Output Total 1050 / 1050 1550 / 1550 1000 / 1000 Balance 707.7 / 707.7 1869 / 1869 3705.6 / 3705.6 Microbiology Past 72 Hours 07/24/18 10:10 Gram Stain - Final Sputum, Tracheal Aspirate Respiratory Culture - Preliminary Culture exhibits no growth. 07/21/18 11:25 Gram Stain - Final Sputum, Expectorated/Coughed Respiratory Culture - Final Mixed normal respiratory laverne. No Streptococcus pneumoniae, beta-hemolytic Streptococcus or Staphylococcus aureus isolated. 07/21/18 11:55 Blood Culture - Preliminary Blood Culture (Wb) - Right Hand No growth in 48 hours. 07/21/18 11:45 Blood Culture - Preliminary Blood Culture (Wb) - Anticubital Right No growth in 48 hours. Laboratory Tests Past 24 Hrs 07/25/18 07/25/18 07/25/18 05:25 05:25 05:25 WBC 6.4 RBC 3.97 L Hgb 12.5 L Hct 39.0 L MCV 98.2 H MCH 31.5 MCHC 32.1 RDW 13.9 RDW Differential 49.6 H Plt Count 182 MPV 11.1 Immature Gran % (Auto) 0.600 Neut % (Auto) 83.3 H Lymph % (Auto) 7.9 L [place] % (Auto) 7.7 Eos % (Auto) 0.0 Baso % (Auto) 0.5 Absolute Neuts (auto) 5.3 Absolute Lymphs (auto) 0.50 L Total Counted Not Reportable Differential Comment Diff Path Review Reviewed Specimen Type Sample Site pH Bicarbonate Actual POC Total CO2 Base Excess O2 Saturation O2 % ABG pCO2 ABG pO2 Mir Test Respiration Rate O2 Delivery Device Minute Volume Vent Mode Tidal Volume POC PEEP Blood Gas Notified Whom Blood Gas Notified Time Sodium 141 Potassium 4.5 Chloride 105 Carbon Dioxide 25.0 Anion Gap 11 BUN 56 H Creatinine 2.13 H Estim Creat Clear Calc 33.45 Est GFR (MDRD) Af Amer 40 L Est GFR (MDRD) Non-Af 33 L BUN/Creatinine Ratio 26.3 H Glucose 481 H* Calcium 7.7 L Magnesium 2.6 B-Natriuretic Peptide 59.4 07/25/18 07:50 WBC RBC Hgb Hct MCV MCH MCHC RDW RDW Differential Plt Count MPV Immature Gran % (Auto) Neut % (Auto) Lymph % (Auto) [place] % (Auto) Eos % (Auto) Baso % (Auto) Absolute Neuts (auto) Absolute Lymphs (auto) Total Counted Differential Comment Diff Path Review Specimen Type ART Sample Site R Radial pH 7.35 Bicarbonate Actual 25.3 POC Total CO2 27 Base Excess 0 O2 Saturation 92 L O2 % 100 ABG pCO2 45.6 H ABG pO2 67 L Mir Test NA Respiration Rate 16 O2 Delivery Device Vent Minute Volume 8.00 Vent Mode A-C Tidal Volume 450 POC PEEP 10 Blood Gas Notified Whom ICU Blood Gas Notified Time 745 Sodium Potassium Chloride Carbon Dioxide Anion Gap BUN Creatinine Estim Creat Clear Calc Est GFR (MDRD) Af Amer Est GFR (MDRD) Non-Af BUN/Creatinine Ratio Glucose Calcium Magnesium B-Natriuretic Peptide POC Glucose 07/25/18 07/25/18 07/25/18 10:50 05:41 00:26 POC Glucose 404 H 461 H* 409 H 07/24/18 17:15 POC Glucose 374 H Assessment/Plan All Active Problems (Last Reviewed 07/20/18 @ 21:39 by Joaquín Laughlin DO) Acute bronchitis (Acute) Influenza A (Acute) Constipation (Acute) PAUL (acute kidney injury) (Acute) Paroxysmal atrial fibrillation (Acute) Hyperlipidemia (Acute) PAUL. baseline creatinine is normal. UA reviewed. Qiu in hence chances of obstruction are low. little late to develop contrast nephropathy and this is typically oliguric failure. PAUL is likely ATN due to severe sepsis, ARDS. so far urine output is maintained. he is on high O2 requirements due to ARDS. 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
--- NOTE | 2018-07-25 11:57 | CON.PCM_ITS ---
Problem List (1) PAUL (acute kidney injury) Status: Acute Consultation - Renal 07/25/18 PCP/ Referring MD: Requesting physician: Dr Awad Primary care physician: Cesar Andres Reason for Consultation:: PALU - History of Present Illness History of Present Illness: The patient is a 63 year old M admitted to hospital about 4 days ago. presented to hospital with fever, chills, generalized weakness, malaise. found to have influenza A on admission. respiratory status has worsened over the last couple days, got intubated now. FiO2 is at 100% and PEEP 10 as of this morning, creatinine at baseline is normal at less than 1 urine output so far is ok creatinine bumped today last contrast was on of this month abx listed as below - Allergies Allergies: Allergies atorvastatin [From Lipitor] Adverse Reaction (Severe, Verified 03/13/18 09:46) Myalgias IVP Dye Adverse Reaction (Unknown, Uncoded 09/08/17 14:23) Unknown - Current Medications Current Medications: Current Medications Acetaminophen (Tylenol Liquid) 650 mg GT Q4H PRN PRN PRN Reason: FEVER Albuterol Sulfate (Ventolin Aerosols) 2.5 mg INHALATION Q2H PRN PRN PRN Reason: SHORTNESS OF BREATH Albuterol/Ipratropium (Duoneb) 3 ml INHALATION Q4H.RT [facility] Last Admin: 07/25/18 07:02 Dose: 3 ml Aspirin (Aspirin, Baby) 81 mg GT DAILY@0800 [facility] Last Admin: 07/25/18 10:45 Dose: 81 mg Chlorhexidine Gluconate () 15 ml PO BID [facility] Last Admin: 07/25/18 10:47 Dose: 15 ml Chlorhexidine Gluconate () 1 each TOPICAL DAILY [facility] Last Admin: 07/25/18 04:27 Dose: 1 each Enoxaparin Sodium (Lovenox) 40 mg SC DAILY@1000 [facility] Last Admin: 07/25/18 10:45 Dose: 40 mg Famotidine (Pepcid) 20 mg GT BID [facility] Last Admin: 07/25/18 10:45 Dose: 20 mg Folic Acid (Folic Acid) 1 mg GT DAILYCM [facility] Last Admin: 07/25/18 10:46 Dose: 1 mg Sodium Chloride () 250 mls @ 15 mls/hr IV .[id number] PRN PRN Reason: SALINE FLUSH Fentanyl () 100 mls @ 5 mls/hr IV .Q20H [facility] Last Admin: 07/25/18 11:48 Dose: 5 mls/hr Vancomycin HCl 1,750 mg/ (Sodium Chloride) 535 mls @ 250 mls/hr IV Q12H [facility] Last Admin: 07/25/18 00:29 Dose: 250 mls/hr Propofol (Diprivan) 1,000 mg in 100 mls @ 6.906 mls/hr CONT INF .Q12H [facility] Last Admin: 07/25/18 10:44 Dose: 6.906 mls/hr Piperacillin Sod/Tazobactam (Sod 3.375 gm/ Sodium Chloride) 50 mls @ 12.5 mls/hr IV Q12 [facility] Insulin Glargine (Lantus (Bkc)) 50 units SC [facility] Insulin Human Lispro (Humalog Kwikpen (Bkc)) 0 unit SC Q4 [facility]; Protocol Last Admin: 07/25/18 10:55 Dose: 14 u Magnesium Hydroxide (Milk Of Magnesia) 30 ml GT DAILY PRN PRN PRN Reason: Constipation Methylprednisolone (Solu-Medrol) 40 mg IV Q8 [facility] Last Admin: 07/25/18 05:37 Dose: 40 mg Metoprolol Tartrate (Lopressor (Beta Patricia)) 25 mg GT BID [facility] Ondansetron HCl (Zofran) 4 mg IV Q8H PRN PRN PRN Reason: NAUSEA Oseltamivir Phosphate (Tamiflu) 30 mg PO X1 ONE Stop: 07/26/18 09:01 Polyethylene Glycol (Miralax) 17 gm GT DAILY [facility] Last Admin: 07/25/18 10:46 Dose: 17 gm Pravastatin Sodium (Pravachol) 80 mg PO QHS [facility] Last Admin: 07/24/18 21:15 Dose: 80 mg Quetiapine Fumarate (Seroquel) 50 mg GT BID [facility] Senna/Docusate Sodium (Senokot-S, Ankita-Colace) 2 tablet PO BID [facility] Sodium Chloride () 5 - 15 ml IV UD PRN PRN Reason: SALINE FLUSH Last Admin: 07/24/18 09:16 Dose: 15 ml - Past Medical History Past Medical History (Chronic Problems): Chronic Problems (Last Reviewed 07/20/18 @ 21:39 by Joaquín Laughlin DO) Presence of stent in coronary artery (Chronic ~03/15/06) PTCA/RACHEL to Mid RCA 03/15/06 Atherosclerotic heart disease of [place] coronary artery without angina pectoris (Chronic) PTCA/RACHEL to Mid RCA 03/15/06 HTN (hypertension) (Chronic) - Social History Smoking Status: Former smoker Alcohol: None Drugs: None - Family History Maternal Family History: Family History (Last Reviewed 07/20/18 @ 21:40 by Joaquín Laughlin DO) Son Diabetes Mother Myocardial infarction, Onset Age: 73 Father No problems noted. Son Diabetes Review of Systems Unable to obtain accurate/complete ROS d/t: due to intubated status Patient Problems: Active and Suspected Problems (Last Reviewed 07/20/18 @ 21:39 by Joaquín Laughlin DO) Acute bronchitis (Acute) Influenza A (Acute) Constipation (Acute) PAUL (acute kidney injury) (Acute) - Physical Exam Neck: Supple, No JVD, Negative Carotid Bruits Lungs: Clear to auscultation, Normal air movement Cardiovascular: Regular rate, No murmurs Abdomen: Bowel Sounds Present, Soft, Non Tender Extremities: No edema, Capillary Refill Less than 3 Seconds Skin: No rashes, No breakdown Musculoskeletal: No Tenderness to Palpation of Joints or Extremities Vital Signs Temp Pulse Resp BP Pulse Ox 98.2 F 63 15 112/62 93 07/25/18 10:00 07/25/18 11:00 07/25/18 11:00 07/25/18 11:00 07/25/18 11:00 Oxygen Flow Rate (L/min) 15 Oxygen Delivery Method Mechanical Ventilator Weight: 116 kg Body Mass Index (BMI) 38.6 Intake and Output for Last 24 Hours 07/23/18 07/24/18 07/25/18 23:59 23:59 23:59 Intake Total 1757.7 / 1757.7 3419 / 3419 4705.6 / 4705.6 Output Total 1050 / 1050 1550 / 1550 1000 / 1000 Balance 707.7 / 707.7 1869 / 1869 3705.6 / 3705.6 Microbiology Past 72 Hours 07/24/18 10:10 Gram Stain - Final Sputum, Tracheal Aspirate Respiratory Culture - Preliminary Culture exhibits no growth. 07/21/18 11:25 Gram Stain - Final Sputum, Expectorated/Coughed Respiratory Culture - Final Mixed normal respiratory laverne. No Streptococcus pneumoniae, beta-hemolytic Streptococcus or Staphylococcus aureus isolated. 07/21/18 11:55 Blood Culture - Preliminary Blood Culture (Wb) - Right Hand No growth in 48 hours. 07/21/18 11:45 Blood Culture - Preliminary Blood Culture (Wb) - Anticubital Right No growth in 48 hours. Laboratory Tests Past 24 Hrs 07/25/18 07/25/18 07/25/18 05:25 05:25 05:25 WBC 6.4 RBC 3.97 L Hgb 12.5 L Hct 39.0 L MCV 98.2 H MCH 31.5 MCHC 32.1 RDW 13.9 RDW Differential 49.6 H Plt Count 182 MPV 11.1 Immature Gran % (Auto) 0.600 Neut % (Auto) 83.3 H Lymph % (Auto) 7.9 L [place] % (Auto) 7.7 Eos % (Auto) 0.0 Baso % (Auto) 0.5 Absolute Neuts (auto) 5.3 Absolute Lymphs (auto) 0.50 L Total Counted Not Reportable Differential Comment Diff Path Review Reviewed Specimen Type Sample Site pH Bicarbonate Actual POC Total CO2 Base Excess O2 Saturation O2 % ABG pCO2 ABG pO2 Mir Test Respiration Rate O2 Delivery Device Minute Volume Vent Mode Tidal Volume POC PEEP Blood Gas Notified Whom Blood Gas Notified Time Sodium 141 Potassium 4.5 Chloride 105 Carbon Dioxide 25.0 Anion Gap 11 BUN 56 H Creatinine 2.13 H Estim Creat Clear Calc 33.45 Est GFR (MDRD) Af Amer 40 L Est GFR (MDRD) Non-Af 33 L BUN/Creatinine Ratio 26.3 H Glucose 481 H* Calcium 7.7 L Magnesium 2.6 B-Natriuretic Peptide 59.4 07/25/18 07:50 WBC RBC Hgb Hct MCV MCH MCHC RDW RDW Differential Plt Count MPV Immature Gran % (Auto) Neut % (Auto) Lymph % (Auto) [place] % (Auto) Eos % (Auto) Baso % (Auto) Absolute Neuts (auto) Absolute Lymphs (auto) Total Counted Differential Comment Diff Path Review Specimen Type ART Sample Site R Radial pH 7.35 Bicarbonate Actual 25.3 POC Total CO2 27 Base Excess 0 O2 Saturation 92 L O2 % 100 ABG pCO2 45.6 H ABG pO2 67 L Mir Test NA Respiration Rate 16 O2 Delivery Device Vent Minute Volume 8.00 Vent Mode A-C Tidal Volume 450 POC PEEP 10 Blood Gas Notified Whom ICU Blood Gas Notified Time 745 Sodium Potassium Chloride Carbon Dioxide Anion Gap BUN Creatinine Estim Creat Clear Calc Est GFR (MDRD) Af Amer Est GFR (MDRD) Non-Af BUN/Creatinine Ratio Glucose Calcium Magnesium B-Natriuretic Peptide POC Glucose 07/25/18 07/25/18 07/25/18 10:50 05:41 00:26 POC Glucose 404 H 461 H* 409 H 07/24/18 17:15 POC Glucose 374 H Assessment/Plan All Active Problems (Last Reviewed 07/20/18 @ 21:39 by Joaquín Laughlin DO) Acute bronchitis (Acute) Influenza A (Acute) Constipation (Acute) PAUL (acute kidney injury) (Acute) Paroxysmal atrial fibrillation (Acute) Hyperlipidemia (Acute) PAUL. baseline creatinine is normal. UA reviewed. Qiu in hence chances of obstruction are low. little late to develop contrast nephropathy and this is typically oliguric failure. PAUL is likely ATN due to severe sepsis, ARDS. so far urine output is maintained. he is on high O2 requirements due to ARDS. hold off CLAIMS AUDITOR for today but low threshold to initiate CLAIMS AUDITOR d/w Dr Ponce and Dr Awad
[2018-07-25 13:00] LABS: Urine Sodium 17 mmol/L (Not Establ.)
[2018-07-25 13:20] LABS: Vancomycin, Random Level 23.8 ug/mL (0.0-15.0)
[2018-07-25] MEDS: 0.9% NaCl Peripheral Flush Adult/Peds IV (14:35)
[2018-07-25 14:45] LABS: Bedside Glucose 418 mg/dL (70-110)
[2018-07-25 18:30] LABS: Bedside Glucose 352 mg/dL (70-110)
--- NOTE | 2018-07-25 18:57 | NURSING ---
Pt's wedding ring removed and locked in the med prosecuting attorney room.
[2018-07-25 20:55] LABS: Hemoglobin A1c 9.2 % (4.2-6.3)
[2018-07-25] MEDS: Pravastatin 80 MG Tablet PO (22:19)
[2018-07-25] MEDS: Senna/Docusate Sodium 1 Tablet 2 TABLET PO (22:19)
[2018-07-25 22:25] LABS: Bedside Glucose 307 mg/dL (70-110)
[2018-07-26] VITALS (44 sets, daily range): BP systolic 106–166; BP diastolic 56–112; PULSE 54–176; RESP 11–16; TEMP 36.7–37.3; O2SAT 89–97
[2018-07-26] MEDS: Insulin Lispro 100 UNIT/ML INSULN.PEN SC ×6 (01:17→22:32)
[2018-07-26] MEDS: Ipratropium/Albuterol Sulfate 3 ML AMPUL.NEB INHALATION ×2 (03:25→06:38)
[2018-07-26] MEDS: Propofol 10MG/Ml 1,000 MG/100 ML Bottle 6.906 MG CONT INF ×7 (03:41→22:11)
[2018-07-26] MEDS: CHLORHEXIDINE GLUC 2% CLOTH 1 EACH TOWELETTE TOPICAL (03:55)
[2018-07-26] MEDS: fentaNYL drip 100 ML 5 MCG IV ×3 (04:19→20:51)
[2018-07-26 05:11] LABS: Bedside Glucose 280 mg/dL (70-110)
[2018-07-26 05:12] LABS: Anion Gap 9 (5-15); BUN 67 mg/dL (7-18); Calcium,Total 7.9 mg/dL (8.5-10.1); Chloride 110 mmol/L (98-107); Creatinine, Serum 2.16 mg/dL (0.70-1.30); EST Glomerular Filtration Rate 33 mL/min (>60); Est Glom Filt Rate - Afr Amer 40 mL/min (>60); Estimated Creatinine Clearance 32.99 ml/min; Glucose 271 mg/dL (74-106); Sodium Level 146 mmol/L (136-145)
[2018-07-26 06:01] LABS: Bedside Glucose 234 mg/dL (70-110)
--- NOTE | 2018-07-26 06:45 | PCM.PN.INT ---
Subjective: The patient was seen and examined at the bedside this morning. Events from the last 24 hours have been reviewed. The patient is currently afebrile and hemodynamically stable. His FiO2 requirement was able to be weaned this morning to 70%. He remains on a PEEP of 10. Creatinine is stable this morning. Potassium is at the upper limits of normal at 5.0. The patient was started on cis atracurium yesterday due to ventilator dyssynchrony, which was affecting her ability to ventilate the patient appropriately, despite being on large doses of sedative medications. BIS monitor is currently reading 48. The patient has a RASS of -5. The patient had 3 twitches on TOF this AM. He is currently documented to be overall net +9 L for the admission. This morning, the patient spontaneously went from a normal sinus rhythm into SVT. I evaluated the patient at the bedside and administered adenosine. The underlying rhythm did appear to be atrial flutter. Unfortunately, the patient's rate remained elevated into the 150s and 160s. A Cardizem bolus was then given, which led to little control of the patient's heart rate. Cardiology was subsequently consulted and evaluated the patient at the bedside. He was placed on a continuous Cardizem infusion, was still provided little heart rate control. Following a discussion with the patient's , the decision was made to pursue cardioversion. Under the supervision of Dr. Martinez, the patient underwent synchronized cardioversion, which did eventually restore normal sinus rhythm. The patient was placed on a heparin drip and started on amiodarone as well. Objective: The patient's most recent lab work, culture data and imaging studies have all been personally reviewed. Chest imaging studies have all revealed significant multifocal bilateral infiltrates. Surface echocardiogram revealed mild concentric LVH with an ejection fraction of 55% and stage II diastolic dysfunction. Pulmonary artery systolic pressure was estimated to be 26 mmHg. The patient's rapid influenza screen was positive for influenza A. The remainder of his infectious workup, including sputum cultures have been unrevealing to date. General: - - Currently intubated, sedated and mechanically ventilated. HEENT: Atraumatic, PERRLA, Normocephalic Oral: No Gingival or Mucosal Lesions/ Ulcerations, - - Endotracheal and OG tubes remain in place Neck: Supple, No Nodes, Trachea Midline Lungs: No wheeze, Diminished, Rhonchi Cardiovascular: Regular rate, Regular Rhythm, Normal S1, Normal S2, No murmurs, - - Normal sinus rhythm status post cardioversion Abdomen: Bowel Sounds Present, Soft, Non Tender, Obese Extremities: No clubbing, No cyanosis, No edema Skin: - - No significant change from previous Musculoskeletal: No Tenderness to Palpation of Joints or Extremities, No Muscle Wasting Lymphatic: No Cervical, Supraclavicular, or Inguinal Adenopathy Neurological: - - The patient is currently heavily sedated and medically paralyzed. Vital Signs Temp Pulse Resp BP Pulse Ox 37.0 C 64 16 122/68 H 93 07/26/18 06:00 07/26/18 06:00 07/26/18 06:00 07/26/18 06:00 07/26/18 06:00 Oxygen Flow Rate (L/min) 15 Oxygen Delivery Method Mechanical Ventilator Weight: 257 lb 15.053 oz Body Mass Index (BMI) 38.6 Intake and Output for Last 24 Hours 07/24/18 07/25/18 07/26/18 23:59 23:59 23:59 Intake Total 3419 / 3419 6071.6 / 6071.6 935 / 935 Output Total 1550 / 1550 1725 / 1725 450 / 450 Balance 1869 / 1869 4346.6 / 4346.6 485 / 485 Labs (Last 48 Hours) 07/24/18 07/24/18 07/24/18 00:45 05:54 10:20 WBC RBC Hgb Hct MCV MCH MCHC RDW RDW Differential Plt Count MPV Immature Gran % (Auto) Neut % (Auto) Lymph % (Auto) Levy % (Auto) Eos % (Auto) Baso % (Auto) Absolute Neuts (auto) Absolute Lymphs (auto) Total Counted Differential Comment Diff Path Review Eos Smear Total Cells Specimen Type ART Sample Site L Brachial pH 7.38 Bicarbonate Actual 27.0 H POC Total CO2 28 Base Excess 2 O2 Saturation 90 L O2 % 100 ABG pCO2 45.6 H ABG pO2 61 L Mir Test Respiration Rate 16 O2 Delivery Device Vent Minute Volume Vent Mode A-C Tidal Volume 500 POC PEEP 10 Blood Gas Notified Whom ICU Blood Gas Notified Time 1019 Sodium Potassium Chloride Carbon Dioxide Anion Gap BUN Creatinine Estim Creat Clear Calc Est GFR (MDRD) Af Amer Est GFR (MDRD) Non-Af BUN/Creatinine Ratio Glucose Hemoglobin A1c Calcium Magnesium Total Creatine Kinase 85 B-Natriuretic Peptide Triglycerides 163 Ur Random Sodium Urine Creatinine Random Vancomycin POC Glucose 402 H 07/24/18 07/24/18 07/25/18 11:17 17:15 00:26 WBC RBC Hgb Hct MCV MCH MCHC RDW RDW Differential Plt Count MPV Immature Gran % (Auto) Neut % (Auto) Lymph % (Auto) Levy % (Auto) Eos % (Auto) Baso % (Auto) Absolute Neuts (auto) Absolute Lymphs (auto) Total Counted Differential Comment Diff Path Review Eos Smear Total Cells Specimen Type Sample Site pH Bicarbonate Actual POC Total CO2 Base Excess O2 Saturation O2 % ABG pCO2 ABG pO2 Mir Test Respiration Rate O2 Delivery Device Minute Volume Vent Mode Tidal Volume POC PEEP Blood Gas Notified Whom Blood Gas Notified Time Sodium Potassium Chloride Carbon Dioxide Anion Gap BUN Creatinine Estim Creat Clear Calc Est GFR (MDRD) Af Amer Est GFR (MDRD) Non-Af BUN/Creatinine Ratio Glucose Hemoglobin A1c Calcium Magnesium Total Creatine Kinase B-Natriuretic Peptide Triglycerides Ur Random Sodium Urine Creatinine Random Vancomycin POC Glucose 400 H 374 H 409 H 07/25/18 07/25/18 07/25/18 05:25 05:25 05:25 WBC 6.4 RBC 3.97 L Hgb 12.5 L Hct 39.0 L MCV 98.2 H MCH 31.5 MCHC 32.1 RDW 13.9 RDW Differential 49.6 H Plt Count 182 MPV 11.1 Immature Gran % (Auto) 0.600 Neut % (Auto) 83.3 H Lymph % (Auto) 7.9 L Levy % (Auto) 7.7 Eos % (Auto) 0.0 Baso % (Auto) 0.5 Absolute Neuts (auto) 5.3 Absolute Lymphs (auto) 0.50 L Total Counted Not Reportable Differential Comment Diff Path Review Reviewed Eos Smear Total Cells Specimen Type Sample Site pH Bicarbonate Actual POC Total CO2 Base Excess O2 Saturation O2 % ABG pCO2 ABG pO2 Mir Test Respiration Rate O2 Delivery Device Minute Volume Vent Mode Tidal Volume POC PEEP Blood Gas Notified Whom Blood Gas Notified Time Sodium 141 Potassium 4.5 Chloride 105 Carbon Dioxide 25.0 Anion Gap 11 BUN 56 H Creatinine 2.13 H Estim Creat Clear Calc 33.45 Est GFR (MDRD) Af Amer 40 L Est GFR (MDRD) Non-Af 33 L BUN/Creatinine Ratio 26.3 H Glucose 481 H* Hemoglobin A1c Calcium 7.7 L Magnesium 2.6 Total Creatine Kinase B-Natriuretic Peptide 59.4 Triglycerides Ur Random Sodium Urine Creatinine Random Vancomycin POC Glucose 07/25/18 07/25/18 07/25/18 05:41 07:50 10:50 WBC RBC Hgb Hct MCV MCH MCHC RDW RDW Differential Plt Count MPV Immature Gran % (Auto) Neut % (Auto) Lymph % (Auto) Levy % (Auto) Eos % (Auto) Baso % (Auto) Absolute Neuts (auto) Absolute Lymphs (auto) Total Counted Differential Comment Diff Path Review Eos Smear Total Cells Specimen Type ART Sample Site R Radial pH 7.35 Bicarbonate Actual 25.3 POC Total CO2 27 Base Excess 0 O2 Saturation 92 L O2 % 100 ABG pCO2 45.6 H ABG pO2 67 L Mir Test NA Respiration Rate 16 O2 Delivery Device Vent Minute Volume 8.00 Vent Mode A-C Tidal Volume 450 POC PEEP 10 Blood Gas Notified Whom ICU MD Blood Gas Notified Time 745 Sodium Potassium Chloride Carbon Dioxide Anion Gap BUN Creatinine Estim Creat Clear Calc Est GFR (MDRD) Af Amer Est GFR (MDRD) Non-Af BUN/Creatinine Ratio Glucose Hemoglobin A1c Calcium Magnesium Total Creatine Kinase B-Natriuretic Peptide Triglycerides Ur Random Sodium Urine Creatinine Random Vancomycin POC Glucose 461 H* 404 H 07/25/18 07/25/18 07/25/18 11:00 11:50 11:50 WBC RBC Hgb Hct MCV MCH MCHC RDW RDW Differential Plt Count MPV Immature Gran % (Auto) Neut % (Auto) Lymph % (Auto) Levy % (Auto) Eos % (Auto) Baso % (Auto) Absolute Neuts (auto) Absolute Lymphs (auto) Total Counted Differential Comment Diff Path Review Eos Smear Total Cells Pending Specimen Type Sample Site pH Bicarbonate Actual POC Total CO2 Base Excess O2 Saturation O2 % ABG pCO2 ABG pO2 Mir Test Respiration Rate O2 Delivery Device Minute Volume Vent Mode Tidal Volume POC PEEP Blood Gas Notified Whom Blood Gas Notified Time Sodium Potassium Chloride Carbon Dioxide Anion Gap BUN Creatinine Estim Creat Clear Calc Est GFR (MDRD) Af Amer Est GFR (MDRD) Non-Af BUN/Creatinine Ratio Glucose Hemoglobin A1c Calcium Magnesium Total Creatine Kinase B-Natriuretic Peptide Triglycerides Ur Random Sodium Urine Creatinine 125.00 Random Vancomycin 23.8 H POC Glucose 07/25/18 07/25/18 07/25/18 11:50 14:23 17:44 WBC RBC Hgb Hct MCV MCH MCHC RDW RDW Differential Plt Count MPV Immature Gran % (Auto) Neut % (Auto) Lymph % (Auto) Levy % (Auto) Eos % (Auto) Baso % (Auto) Absolute Neuts (auto) Absolute Lymphs (auto) Total Counted Differential Comment Diff Path Review Eos Smear Total Cells Specimen Type Sample Site pH Bicarbonate Actual POC Total CO2 Base Excess O2 Saturation O2 % ABG pCO2 ABG pO2 Mir Test Respiration Rate O2 Delivery Device Minute Volume Vent Mode Tidal Volume POC PEEP Blood Gas Notified Whom Blood Gas Notified Time Sodium Potassium Chloride Carbon Dioxide Anion Gap BUN Creatinine Estim Creat Clear Calc Est GFR (MDRD) Af Amer Est GFR (MDRD) Non-Af BUN/Creatinine Ratio Glucose Hemoglobin A1c Calcium Magnesium Total Creatine Kinase B-Natriuretic Peptide Triglycerides Ur Random Sodium 17 Urine Creatinine Random Vancomycin POC Glucose 418 H 352 H 07/25/18 07/25/18 07/26/18 20:25 22:22 01:15 WBC RBC Hgb Hct MCV MCH MCHC RDW RDW Differential Plt Count MPV Immature Gran % (Auto) Neut % (Auto) Lymph % (Auto) Levy % (Auto) Eos % (Auto) Baso % (Auto) Absolute Neuts (auto) Absolute Lymphs (auto) Total Counted Differential Comment Diff Path Review Eos Smear Total Cells Specimen Type Sample Site pH Bicarbonate Actual POC Total CO2 Base Excess O2 Saturation O2 % ABG pCO2 ABG pO2 Mir Test Respiration Rate O2 Delivery Device Minute Volume Vent Mode Tidal Volume POC PEEP Blood Gas Notified Whom Blood Gas Notified Time Sodium Potassium Chloride Carbon Dioxide Anion Gap BUN Creatinine Estim Creat Clear Calc Est GFR (MDRD) Af Amer Est GFR (MDRD) Non-Af BUN/Creatinine Ratio Glucose Hemoglobin A1c 9.2 H Calcium Magnesium Total Creatine Kinase B-Natriuretic Peptide Triglycerides Ur Random Sodium Urine Creatinine Random Vancomycin POC Glucose 307 H 280 H 07/26/18 07/26/18 04:40 05:53 WBC RBC Hgb Hct MCV MCH MCHC RDW RDW Differential Plt Count MPV Immature Gran % (Auto) Neut % (Auto) Lymph % (Auto) Levy % (Auto) Eos % (Auto) Baso % (Auto) Absolute Neuts (auto) Absolute Lymphs (auto) Total Counted Differential Comment Diff Path Review Eos Smear Total Cells Specimen Type Sample Site pH Bicarbonate Actual POC Total CO2 Base Excess O2 Saturation O2 % ABG pCO2 ABG pO2 Mir Test Respiration Rate O2 Delivery Device Minute Volume Vent Mode Tidal Volume POC PEEP Blood Gas Notified Whom Blood Gas Notified Time Sodium 146 H Potassium 5.0 Chloride 110 H Carbon Dioxide 27.0 Anion Gap 9 BUN 67 H Creatinine 2.16 H Estim Creat Clear Calc 32.99 Est GFR (MDRD) Af Amer 40 L Est GFR (MDRD) Non-Af 33 L BUN/Creatinine Ratio 31.0 H Glucose 271 H Hemoglobin A1c Calcium 7.9 L Magnesium Total Creatine Kinase B-Natriuretic Peptide Triglycerides Ur Random Sodium Urine Creatinine Random Vancomycin POC Glucose 234 H Microbiology 07/24/18 10:10 Sputum, Tracheal Aspirate Gram Stain - Final 07/24/18 10:10 Sputum, Tracheal Aspirate Respiratory Culture - Preliminary Culture exhibits no growth. Clinical Impression(s) from Imaging Studies KUB X-Ray 07/20/18 18:41 IMPRESSION: No evidence of obstruction or perforation. at 2003 Reported and signed by: Salinas Noriega MD Electronically Signed: Salinas Noriega, at 20:02 EST Tel , Service support , Chest X-Ray 07/20/18 19:30 IMPRESSION: No radiographic evidence of acute cardiopulmonary disease. at 2003 Reported and signed by: Salinas Noriega MD Electronically Signed: Salinas Noriega, at 20:02 EST Tel , Service support , Abdomen X-Ray 07/21/18 11:07 IMPRESSION: Diffuse distention of bowel most likely ileus. Distal colonic obstruction not likely but possible. at 0143 Reported and signed by: Salinas Noriega MD Electronically Signed: Salinas Noriega at 1:42 EST Tel , Service support , Chest X-Ray 07/22/18 09:37 IMPRESSION: Findings concerning for multifocal pneumonia in the appropriate clinical setting with underlying alveolar edema not completely excluded. Recommend follow-up imaging in 4-6 weeks after appropriate treatment. Electronically Signed: Pacheco Galo DO at 9:56 EST , Service support , Chest CTA 07/22/18 17:51 IMPRESSION: No pulmonary embolus. Multifocal bilateral airspace disease in the lungs similar to the most recent chest radiograph but increased compared to 07/20/18 compatible with multifocal pneumonia versus a noninfectious inflammatory pneumonitis. Small, 4.0 cm, ascending thoracic aortic aneurysm with no hemorrhage or dissection. Individualized dose optimization techniques were used for this CT. at 1927 Reported and signed by: Salinas Noriega MD Electronically Signed: Salinas Noriega, at 19:26 EST Tel , Service support , Chest X-Ray 07/24/18 08:42 IMPRESSION: Progressive bilateral airspace disease. The tip of the endotracheal tube is at 4.1 cm proximal to the sunshine. The tip of the orogastric tube is in the body of the stomach. Electronically Signed: Shar Castilol, at 14:18 EST , Service support , Chest X-Ray 07/25/18 08:20 IMPRESSION: Since prior study, there has been improved aeration of both lungs although residual bilateral airspace disease is seen. Electronically Signed: Shar Castillo, at 9:08 EST , Service support , Medical Necessity - Tobacco Use Smoking Status: Former smoker Tobacco Use: Non-smoker Assessment/Plan All Active Problems (Last Reviewed 07/20/18 @ 21:39 by Joaquín Laughlin DO) Acute bronchitis (Acute) Influenza A (Acute) Constipation (Acute) PAUL (acute kidney injury) (Acute) Atrial flutter (Acute) Paroxysmal atrial fibrillation (Acute) Hyperlipidemia (Acute) RECOMMENDATIONS: 1. Continue current supportive measures with lung protective ventilatory strategy. 2. Wean FiO2 and PEEP to maintain an oxygen saturation at or above 90%. 3. Continue tube feeds as ordered. 4. Obtain repeat arterial blood gas. 5. Continue antibiotics and Tamiflu per infectious diseases recommendations 7. Continue appropriate ICU prophylaxis 8. The patient's aerosol treatments will be changed to Atrovent to help eliminate further escalation in the patient's heart rate. 9. Continue Cardizem and amiodarone as ordered. 10. Continue heparin drip 11. Continue current sedation and paralytic regimen. IMPRESSIONS: 1. Acute hypoxemic respiratory failure secondary to influenza A infection and severe community-acquired pneumonia/evolving ARDS The patient has a questionable baseline history of COPD. He was seen in the pulmonary medicine clinic 1 year ago, at which time, pulmonary function studies were ordered. However, the patient never followed up. Although the patient was admitted to the hospital with influenza A and a plain film chest x-ray which was largely unremarkable, follow-up chest imaging subsequently revealed evidence of evolving multifocal pneumonia. The patient has essentially gone on to develop full-blown ARDS. He did require intubation on the morning of July 24. He will be maintained on a lung protective ventilator strategy. In addition, the patient was placed on paralytic therapy in order to improve ventilator synchrony and oxygenation. This will be continued with plans to wean and subsequently discontinue in approximately 24 hours, if feasible. We will continue to wean FiO2 and PEEP to maintain an oxygen saturation at or above 90%. We will also plan to obtain a repeat arterial blood gas this morning. We will continue scheduled Atrovent and steroids as ordered. 2. New onset atrial flutter with rapid ventricular rate Attempts at rate control with medical therapy was largely unsuccessful this morning. Cardiology was subsequently consulted. The patient underwent cardioversion at the bedside with subsequent congregational of normal sinus rhythm. He will be continued on Cardizem and amiodarone as ordered, in the interim. A continuous heparin drip will also be continued. 3. Acute kidney injury Nephrology is currently following. Avoid nephrotoxic agents. Continue to monitor urine output. No current indication for renal replacement therapy. 4. Known history of pulmonary nodules The patient is actually past due for a repeat CT chest due to his previously identified pulmonary nodules in March 2017. 5. Obstructive sleep apnea The patient is currently noncompliant with the use of nocturnal noninvasive positive pressure ventilation. 6. Rheumatoid arthritis/atrial fibrillation status post ablation/coronary artery disease/tobacco dependency currently in remission Complicates care, management, recovery and prognosis. Continue home medications as indicated. Insulin regimen will be increased due to persistent hyperglycemia. TIME: 80 minutes of critical care time, independent of procedures, was spent addressing the patient's acute hypoxemic respiratory failure, influenza A infection, severe community-acquired pneumonia, ARDS, acute kidney injury, new onset atrial flutter with rapid ventricular rate, history of pulmonary nodules, obstructive sleep apnea, review of all data and collaboration with the care team. ([id number], [id number]) Code Visit Procedures: 25647 Critial Care Addl 30 Min 9xxxx: [id number] Critical care first hour
--- NOTE | 2018-07-26 06:50 | PN_ITS ---
Subjective: The patient was seen and examined at the bedside this morning. Events from the last 24 hours have been reviewed. The patient is currently afebrile and hemodynamically stable. His FiO2 requirement was able to be weaned this morning to 70%. He remains on a PEEP of 10. Creatinine is stable this morning. Potassium is at the upper limits of normal at 5.0. The patient was started on cis atracurium yesterday due to ventilator dyssynchrony, which was affecting her ability to ventilate the patient appropriately, despite being on large doses of sedative medications. BIS monitor is currently reading 48. The patient has a RASS of -5. The patient had 3 twitches on TOF this AM. He is currently documented to be overall net +9 L for the admission. This morning, the patient spontaneously went from a normal sinus rhythm into SVT. I evaluated the patient at the bedside and administered adenosine. The underlying rhythm did appear to be atrial flutter. Unfortunately, the patient's rate remained elevated into the 150s and 160s. A Cardizem bolus was then given, which led to little control of the patient's heart rate. Cardiology was subseq uently consulted and evaluated the patient at the bedside. He was placed on a continuous Cardizem infusion, was still provided little heart rate control. Following a discussion with the patient's , the decision was made to pursue cardioversion. Under the supervision of Dr. Martinez, the patient underwent synchronized cardioversion, which did eventually restore normal sinus rhythm. The patient was placed on a heparin drip and started on amiodarone as well. Objective: The patient's most recent lab work, culture data and imaging studies have all been personally reviewed. Chest imaging studies have all revealed significant multifocal bilateral infiltrates. Surface echocardiogram revealed mild concentric LVH with an ejection fraction of 55% and stage II diastolic dysfunction. Pulmonary artery systolic pressure was estimated to be 26 mmHg. The patient's rapid influenza screen was positive for influenza A. The remainder of his infectious workup, including sputum cultures have been unrevealing to date. General: - - Currently intubated, sedated and mechanically ventilated. HEENT: Atraumatic, PERRLA, Normocephalic Oral: No Gingival or Mucosal Lesions/ Ulcerations, - - Endotracheal and OG tubes remain in place Neck: Supple, No Nodes, Trachea Midline Lungs: No wheeze, Diminished, Rhonchi Cardiovascular: Regular rate, Regular Rhythm, Normal S1, Normal S2, No murmurs, - - Normal sinus rhythm status post cardioversion Abdomen: Bowel Sounds Present, Soft, Non Tender, Obese Extremities: No clubbing, No cyanosis, No edema Skin: - - No significant change from previous Musculoskeletal: No Tenderness to Palpation of Joints or Extremities, No Muscle Wasting Lymphatic: No Cervical, Supraclavicular, or Inguinal Adenopathy Neurological: - - The patient is currently heavily sedated and medically paralyzed. Vital Signs Temp Pulse Resp BP Pulse Ox 37.0 C 64 16 122/68 H 93 07/26/18 06:00 07/26/18 06:00 07/26/18 06:00 07/26/18 06:00 07/26/18 06:00 Oxygen Flow Rate (L/min) 15 Oxygen Delivery Method Mechanical Ventilator Weight: 257 lb 15.053 oz Body Mass Index (BMI) 38.6 Intake and Output for Last 24 Hours 07/24/18 07/25/18 07/26/18 23:59 23:59 23:59 Intake Total 3419 / 3419 6071.6 / 6071.6 935 / 935 Output Total 1550 / 1550 1725 / 1725 450 / 450 Balance 1869 / 1869 4346.6 / 4346.6 485 / 485 Labs (Last 48 Hours) 07/24/18 07/24/18 07/24/18 00:45 05:54 10:20 WBC RBC Hgb Hct MCV MCH MCHC RDW RDW Differential Plt Count MPV Immature Gran % (Auto) Neut % (Auto) Lymph % (Auto) [place] % (Auto) Eos % (Auto) Baso % (Auto) Absolute Neuts (auto) Absolute Lymphs (auto) Total Counted Differential Comment Diff Path Review Eos Smear Total Cells Specimen Type ART Sample Site L Brachial pH 7.38 Bicarbonate Actual 27.0 H POC Total CO2 28 Base Excess 2 O2 Saturation 90 L O2 % 100 ABG pCO2 45.6 H ABG pO2 61 L Mir Test Respiration Rate 16 O2 Delivery Device Vent Minute Volume Vent Mode A-C Tidal Volume 500 POC PEEP 10 Blood Gas Notified Whom ICU Blood Gas Notified Time 1019 Sodium Potassium Chloride Carbon Dioxide Anion Gap BUN Creatinine Estim Creat Clear Calc Est GFR (MDRD) Af Amer Est GFR (MDRD) Non-Af BUN/Creatinine Ratio Glucose Hemoglobin A1c Calcium Magnesium Total Creatine Kinase 85 B-Natriuretic Peptide Triglycerides 163 Ur Random Sodium Urine Creatinine Random Vancomycin POC Glucose 402 H 07/24/18 07/24/18 07/25/18 11:17 17:15 00:26 WBC RBC Hgb Hct MCV MCH MCHC RDW RDW Differential Plt Count MPV Immature Gran % (Auto) Neut % (Auto) Lymph % (Auto) [place] % (Auto) Eos % (Auto) Baso % (Auto) Absolute Neuts (auto) Absolute Lymphs (auto) Total Counted Differential Comment Diff Path Review Eos Smear Total Cells Specimen Type Sample Site pH Bicarbonate Actual POC Total CO2 Base Excess O2 Saturation O2 % ABG pCO2 ABG pO2 Mir Test Respiration Rate O2 Delivery Device Minute Volume Vent Mode Tidal Volume POC PEEP Blood Gas Notified Whom Blood Gas Notified Time Sodium Potassium Chloride Carbon Dioxide Anion Gap BUN Creatinine Estim Creat Clear Calc Est GFR (MDRD) Af Amer Est GFR (MDRD) Non-Af BUN/Creatinine Ratio Glucose Hemoglobin A1c Calcium Magnesium Total Creatine Kinase B-Natriuretic Peptide Triglycerides Ur Random Sodium Urine Creatinine Random Vancomycin POC Glucose 400 H 374 H 409 H 07/25/18 07/25/18 07/25/18 05:25 05:25 05:25 WBC 6.4 RBC 3.97 L Hgb 12.5 L Hct 39.0 L MCV 98.2 H MCH 31.5 MCHC 32.1 RDW 13.9 RDW Differential 49.6 H Plt Count 182 MPV 11.1 Immature Gran % (Auto) 0.600 Neut % (Auto) 83.3 H Lymph % (Auto) 7.9 L [place] % (Auto) 7.7 Eos % (Auto) 0.0 Baso % (Auto) 0.5 Absolute Neuts (auto) 5.3 Absolute Lymphs (auto) 0.50 L Total Counted Not Reportable Differential Comment Diff Path Review Reviewed Eos Smear Total Cells Specimen Type Sample Site pH Bicarbonate Actual POC Total CO2 Base Excess O2 Saturation O2 % ABG pCO2 ABG pO2 Mir Test Respiration Rate O2 Delivery Device Minute Volume Vent Mode Tidal Volume POC PEEP Blood Gas Notified Whom Blood Gas Notified Time Sodium 141 Potassium 4.5 Chloride 105 Carbon Dioxide 25.0 Anion Gap 11 BUN 56 H Creatinine 2.13 H Estim Creat Clear Calc 33.45 Est GFR (MDRD) Af Amer 40 L Est GFR (MDRD) Non-Af 33 L BUN/Creatinine Ratio 26.3 H Glucose 481 H* Hemoglobin A1c Calcium 7.7 L Magnesium 2.6 Total Creatine Kinase B-Natriuretic Peptide 59.4 Triglycerides Ur Random Sodium Urine Creatinine Random Vancomycin POC Glucose 07/25/18 07/25/18 07/25/18 05:41 07:50 10:50 WBC RBC Hgb Hct MCV MCH MCHC RDW RDW Differential Plt Count MPV Immature Gran % (Auto) Neut % (Auto) Lymph % (Auto) [place] % (Auto) Eos % (Auto) Baso % (Auto) Absolute Neuts (auto) Absolute Lymphs (auto) Total Counted Differential Comment Diff Path Review Eos Smear Total Cells Specimen Type ART Sample Site R Radial pH 7.35 Bicarbonate Actual 25.3 POC Total CO2 27 Base Excess 0 O2 Saturation 92 L O2 % 100 ABG pCO2 45.6 H ABG pO2 67 L Mir Test NA Respiration Rate 16 O2 Delivery Device Vent Minute Volume 8.00 Vent Mode A-C Tidal Volume 450 POC PEEP 10 Blood Gas Notified Whom ICU MD Blood Gas Notified Time 745 Sodium Potassium Chloride Carbon Dioxide Anion Gap BUN Creatinine Estim Creat Clear Calc Est GFR (MDRD) Af Amer Est GFR (MDRD) Non-Af BUN/Creatinine Ratio Glucose Hemoglobin A1c Calcium Magnesium Total Creatine Kinase B-Natriuretic Peptide Triglycerides Ur Random Sodium Urine Creatinine Random Vancomycin POC Glucose 461 H* 404 H 07/25/18 07/25/18 07/25/18 11:00 11:50 11:50 WBC RBC Hgb Hct MCV MCH MCHC RDW RDW Differential Plt Count MPV Immature Gran % (Auto) Neut % (Auto) Lymph % (Auto) [place] % (Auto) Eos % (Auto) Baso % (Auto) Absolute Neuts (auto) Absolute Lymphs (auto) Total Counted Differential Comment Diff Path Review Eos Smear Total Cells Pending Specimen Type Sample Site pH Bicarbonate Actual POC Total CO2 Base Excess O2 Saturation O2 % ABG pCO2 ABG pO2 Mir Test Respiration Rate O2 Delivery Device Minute Volume Vent Mode Tidal Volume POC PEEP Blood Gas Notified Whom Blood Gas Notified Time Sodium Potassium Chloride Carbon Dioxide Anion Gap BUN Creatinine Estim Creat Clear Calc Est GFR (MDRD) Af Amer Est GFR (MDRD) Non-Af BUN/Creatinine Ratio Glucose Hemoglobin A1c Calcium Magnesium Total Creatine Kinase B-Natriuretic Peptide Triglycerides Ur Random Sodium Urine Creatinine 125.00 Random Vancomycin 23.8 H POC Glucose 07/25/18 07/25/18 07/25/18 11:50 14:23 17:44 WBC RBC Hgb Hct MCV MCH MCHC RDW RDW Differential Plt Count MPV Immature Gran % (Auto) Neut % (Auto) Lymph % (Auto) [place] % (Auto) Eos % (Auto) Baso % (Auto) Absolute Neuts (auto) Absolute Lymphs (auto) Total Counted Differential Comment Diff Path Review Eos Smear Total Cells Specimen Type Sample Site pH Bicarbonate Actual POC Total CO2 Base Excess O2 Saturation O2 % ABG pCO2 ABG pO2 Mir Test Respiration Rate O2 Delivery Device Minute Volume Vent Mode Tidal Volume POC PEEP Blood Gas Notified Whom Blood Gas Notified Time Sodium Potassium Chloride Carbon Dioxide Anion Gap BUN Creatinine Estim Creat Clear Calc Est GFR (MDRD) Af Amer Est GFR (MDRD) Non-Af BUN/Creatinine Ratio Glucose Hemoglobin A1c Calcium Magnesium Total Creatine Kinase B-Natriuretic Peptide Triglycerides Ur Random Sodium 17 Urine Creatinine Random Vancomycin POC Glucose 418 H 352 H 07/25/18 07/25/18 07/26/18 20:25 22:22 01:15 WBC RBC Hgb Hct MCV MCH MCHC RDW RDW Differential Plt Count MPV Immature Gran % (Auto) Neut % (Auto) Lymph % (Auto) [place] % (Auto) Eos % (Auto) Baso % (Auto) Absolute Neuts (auto) Absolute Lymphs (auto) Total Counted Differential Comment Diff Path Review Eos Smear Total Cells Specimen Type Sample Site pH Bicarbonate Actual POC Total CO2 Base Excess O2 Saturation O2 % ABG pCO2 ABG pO2 Mir Test Respiration Rate O2 Delivery Device Minute Volume Vent Mode Tidal Volume POC PEEP Blood Gas Notified Whom Blood Gas Notified Time Sodium Potassium Chloride Carbon Dioxide Anion Gap BUN Creatinine Estim Creat Clear Calc Est GFR (MDRD) Af Amer Est GFR (MDRD) Non-Af BUN/Creatinine Ratio Glucose Hemoglobin A1c 9.2 H Calcium Magnesium Total Creatine Kinase B-Natriuretic Peptide Triglycerides Ur Random Sodium Urine Creatinine Random Vancomycin POC Glucose 307 H 280 H 07/26/18 07/26/18 04:40 05:53 WBC RBC Hgb Hct MCV MCH MCHC RDW RDW Differential Plt Count MPV Immature Gran % (Auto) Neut % (Auto) Lymph % (Auto) [place] % (Auto) Eos % (Auto) Baso % (Auto) Absolute Neuts (auto) Absolute Lymphs (auto) Total Counted Differential Comment Diff Path Review Eos Smear Total Cells Specimen Type Sample Site pH Bicarbonate Actual POC Total CO2 Base Excess O2 Saturation O2 % ABG pCO2 ABG pO2 Mir Test Respiration Rate O2 Delivery Device Minute Volume Vent Mode Tidal Volume POC PEEP Blood Gas Notified Whom Blood Gas Notified Time Sodium 146 H Potassium 5.0 Chloride 110 H Carbon Dioxide 27.0 Anion Gap 9 BUN 67 H Creatinine 2.16 H Estim Creat Clear Calc 32.99 Est GFR (MDRD) Af Amer 40 L Est GFR (MDRD) Non-Af 33 L BUN/Creatinine Ratio 31.0 H Glucose 271 H Hemoglobin A1c Calcium 7.9 L Magnesium Total Creatine Kinase B-Natriuretic Peptide Triglycerides Ur Random Sodium Urine Creatinine Random Vancomycin POC Glucose 234 H Microbiology 07/24/18 10:10 Sputum, Tracheal Aspirate Gram Stain - Final 07/24/18 10:10 Sputum, Tracheal Aspirate Respiratory Culture - Preliminary Culture exhibits no growth. Clinical Impression(s) from Imaging Studies KUB X-Ray 07/20/18 18:41 IMPRESSION: No evidence of obstruction or perforation. at 2003 Reported and signed by: Salinas Noriega MD Electronically Signed: Salinas Noriega, at 20:02 EST Tel , Service support , Chest X-Ray 07/20/18 19:30 IMPRESSION: No radiographic evidence of acute cardiopulmonary disease. at 2003 Reported and signed by: Salinas Noriega MD Electronically Signed: Salinas Noriega, at 20:02 EST Tel , Service support , Abdomen X-Ray 07/21/18 11:07 IMPRESSION: Diffuse distention of bowel most likely ileus. Distal colonic obstruction not likely but possible. at 0143 Reported and signed by: Salinas Noriega MD Electronically Signed: Salinas Noriega at 1:42 EST Tel , Service support , Chest X-Ray 07/22/18 09:37 IMPRESSION: Findings concerning for multifocal pneumonia in the appropriate clinical setting with underlying alveolar edema not completely excluded. Recommend follow-up imaging in 4-6 weeks after appropriate treatment. Electronically Signed: Pacheco Galo DO at 9:56 EST , Service support , Chest CTA 07/22/18 17:51 IMPRESSION: No pulmonary embolus. Multifocal bilateral airspace disease in the lungs similar to the most recent chest radiograph but increased compared to 07/20/18 compatible with multifocal pneumonia versus a noninfectious inflammatory pneumonitis. Small, 4.0 cm, ascending thoracic aortic aneurysm with no hemorrhage or dissection. Individualized dose optimization techniques were used for this CT. at 1927 Reported and signed by: Salinas Noriega MD Electronically Signed: Salinas Noriega, at 19:26 EST Tel , Service support , Chest X-Ray 07/24/18 08:42 IMPRESSION: Progressive bilateral airspace disease. The tip of the endotracheal tube is at 4.1 cm proximal to the sunshine. The tip of the orogastric tube is in the body of the stomach. Electronically Signed: Shar Castillo, at 14:18 EST , Service support , Chest X-Ray 07/25/18 08:20 IMPRESSION: Since prior study, there has been improved aeration of both lungs although residual bilateral airspace disease is seen. Electronically Signed: Shar Castillo, at 9:08 EST , Service support , Medical Necessity - Tobacco Use Smoking Status: Former smoker Tobacco Use: Non-smoker Assessment/Plan All Active Problems (Last Reviewed 07/20/18 @ 21:39 by Joaquín Laughlin DO) Acute bronchitis (Acute) Influenza A (Acute) Constipation (Acute) PAUL (acute kidney injury) (Acute) Atrial flutter (Acute) Paroxysmal atrial fibrillation (Acute) Hyperlipidemia (Acute) RECOMMENDATIONS: 1. Continue current supportive measures with lung protective ventilatory strategy. 2. Wean FiO2 and PEEP to maintain an oxygen saturation at or above 90%. 3. Continue tube feeds as ordered. 4. Obtain repeat arterial blood gas. 5. Continue antibiotics and Tamiflu per infectious diseases recommendations 7. Continue appropriate ICU prophylaxis 8. The patient's aerosol treatments will be changed to Atrovent to help eliminate further escalation in the patient's heart rate. 9. Continue Cardizem and amiodarone as ordered. 10. Continue heparin drip 11. Continue current sedation and paralytic regimen. IMPRESSIONS: 1. Acute hypoxemic respiratory failure secondary to influenza A infection and severe community-acquired pneumonia/evolving ARDS The patient has a questionable baseline history of COPD. He was seen in the pulmonary medicine clinic 1 year ago, at which time, pulmonary function studies were ordered. However, the patient never followed up. Although the patient was admitted to the hospital with influenza A and a plain film chest x-ray which was largely unremarkable, follow-up chest imaging subsequently revealed evidence of evolving multifocal pneumonia. The patient has essentially gone on to develop full-blown ARDS. He did require intubation on the morning of July 24. He will be maintained on a lung protective ventilator strategy. In addition, the patient was placed on paralytic therapy in order to improve ventilator synchrony and oxygenation. This will be continued with plans to wean and subsequently discontinue in approximately 24 hours, if feasible. We will continue to wean FiO2 and PEEP to maintain an oxygen saturation at or above 90%. We will also plan to obtain a repeat arterial blood gas this morning. We will continue scheduled Atrovent and steroids as ordered. 2. New onset atrial flutter with rapid ventricular rate Attempts at rate control with medical therapy was largely unsuccessful this morning. Cardiology was subsequently consulted. The patient underwent cardioversion at the bedside with subsequent confucianist of normal sinus rhythm. He will be continued on Cardizem and amiodarone as ordered, in the interim. A continuous heparin drip will also be continued. 3. Acute kidney injury Nephrology is currently following. Avoid nephrotoxic agents. Continue to monitor urine output. No current indication for renal replacement therapy. 4. Known history of pulmonary nodules The patient is actually past due for a repeat CT chest due to his previously identified pulmonary nodules in March 2017. 5. Obstructive sleep apnea The patient is currently noncompliant with the use of nocturnal noninvasive positive pressure ventilation. 6. Rheumatoid arthritis/atrial fibrillation status post ablation/coronary artery disease/tobacco dependency currently in remission Complicates care, management, recovery and prognosis. Continue home medications as indicated. Insulin regimen will be increased due to persistent hyperglycemia. TIME: 80 minutes of critical care time, independent of procedures, was spent addressing the patient's acute hypoxemic respiratory failure, influenza A infection, severe community-acquired pneumonia, ARDS, acute kidney injury, new onset atrial flutter with rapid ventricular rate, history of pulmonary nodules, obstructive sleep apnea, review of all data and collaboration with the care team. ([id number], [id number]) Code Visit Procedures: 36404 Critial Care Addl 30 Min 9xxxx: [id number] Critical care first hour
--- NOTE | 2018-07-26 07:49 | PCM.PN.HOSP ---
Patient Problems: Active and Suspected Problems (Last Reviewed 07/20/18 @ 21:39 by Joaquín Laughlin DO) Acute bronchitis (Acute) Influenza A (Acute) Constipation (Acute) PAUL (acute kidney injury) (Acute) Atrial flutter (Acute) Subjective: Patient was seen and examined. He is being found to be tachycardic in A. fib/atrial flutter with RVR with increasing oxygen requirement. He had gone into SVT and was given adenosine twice. Patient was DC cardioverted and continued on by cardiology. He is on fentanyl, propofol and cisatracurium. Objective: Physical exam: General: Sedated, intubated, on mechanical ventilator HEENT: Atraumatic, PERRLA, EOMI, Normocephalic Oral: Dry Mucosa Neck: Supple, No JVD, Negative Carotid Bruits Lungs: Normal air movement, Diminished Cardiovascular: Regular rate, Normal S1, Normal S2, Irregular Rate, Tachycardic Abdomen: Bowel Sounds Present, Soft, Non-Distended, No Hepato-splenomegaly Extremities: No edema Skin: No rashes, No breakdown Musculoskeletal: No Tenderness to Palpation of Joints or Extremities Lymphatic: No Cervical, Supraclavicular, or Inguinal Adenopathy Neurological: Cranial nerves II-XII grossly intact, Neuro grossly intact Psych/Mental Status: Normal Affect, Appropriate Vitals/I&O's: Vital Signs Temp Pulse Resp BP Pulse Ox 98.6 F 64 16 122/68 H 93 07/26/18 06:00 07/26/18 06:00 07/26/18 06:00 07/26/18 06:00 07/26/18 06:00 Oxygen Flow Rate (L/min) 15 Oxygen Delivery Method Mechanical Ventilator Weight: 117 kg Body Mass Index (BMI) 38.6 Intake and Output for Last 24 Hours 07/24/18 07/25/18 07/26/18 23:59 23:59 23:59 Intake Total 3419 / 3419 6071.6 / 6071.6 935 / 935 Output Total 1550 / 1550 1725 / 1725 450 / 450 Balance 1869 / 1869 4346.6 / 4346.6 485 / 485 Microbiology Past 72 Hours 07/24/18 10:10 Sputum, Tracheal Aspirate Gram Stain - Final 07/24/18 10:10 Sputum, Tracheal Aspirate Respiratory Culture - Preliminary Culture exhibits no growth. 07/21/18 11:25 Sputum, Expectorated/Coughed Gram Stain - Final 07/21/18 11:25 Sputum, Expectorated/Coughed Respiratory Culture - Final Mixed normal respiratory laverne. No Streptococcus pneumoniae, beta-hemolytic Streptococcus or Staphylococcus aureus isolated. 07/21/18 11:55 Blood Culture (Wb) - Right Hand Blood Culture - Preliminary No growth in 48 hours. 07/21/18 11:45 Blood Culture (Wb) - Anticubital Right Blood Culture - Preliminary No growth in 48 hours. Laboratory Results 07/25/18 05:25: Diff Path Review Reviewed 07/25/18 07:50: Specimen Type ART, Sample Site R Radial, pH 7.35, Bicarbonate Actual 25.3, POC Total CO2 27, Base Excess 0, O2 Saturation 92 L, O2 % 100, ABG pCO2 45.6 H, ABG pO2 67 L, Mir Test NA, Respiration Rate 16, O2 Delivery Device Vent, Minute Volume 8.00, Vent Mode A-C, Tidal Volume 450, POC PEEP 10, Blood Gas Notified Whom ICU MD, Blood Gas Notified Time 745 07/25/18 10:50: POC Glucose 404 H 07/25/18 11:00: Eos Smear Total Cells Pending 07/25/18 11:50: Random Vancomycin 23.8 H 07/25/18 11:50: Urine Creatinine 125.00 07/25/18 11:50: Ur Random Sodium 17 07/25/18 14:23: POC Glucose 418 H 07/25/18 17:44: POC Glucose 352 H 07/25/18 20:25: Hemoglobin A1c 9.2 H 07/25/18 22:22: POC Glucose 307 H 07/26/18 01:15: POC Glucose 280 H 07/26/18 04:40: Sodium 146 H, Potassium 5.0, Chloride 110 H, Carbon Dioxide 27.0, Anion Gap 9, BUN 67 H, Creatinine 2.16 H, Estim Creat Clear Calc 32.99, Est GFR (MDRD) Af Amer 40 L, Est GFR (MDRD) Non-Af 33 L, BUN/Creatinine Ratio 31.0 H, Glucose 271 H, Calcium 7.9 L 07/26/18 05:53: POC Glucose 234 H Current Medications Acetaminophen (Tylenol Liquid) 650 mg GT Q4H PRN PRN PRN Reason: FEVER Albuterol Sulfate (Ventolin Aerosols) 2.5 mg INHALATION Q2H PRN PRN PRN Reason: SHORTNESS OF BREATH Albuterol/Ipratropium (Duoneb) 3 ml INHALATION Q4H.RT [facility] Last Admin: 07/26/18 06:38 Dose: 3 ml Aspirin (Aspirin, Baby) 81 mg GT DAILY@0800 [facility] Last Admin: 07/25/18 10:45 Dose: 81 mg Chlorhexidine Gluconate () 15 ml PO BID [facility] Last Admin: 07/25/18 22:20 Dose: 15 ml Chlorhexidine Gluconate () 1 each TOPICAL DAILY [facility] Last Admin: 07/26/18 03:55 Dose: 1 each Enoxaparin Sodium (Lovenox) 40 mg SC DAILY@1000 [facility] Last Admin: 07/25/18 10:45 Dose: 40 mg Famotidine (Pepcid) 20 mg GT BID [facility] Last Admin: 07/25/18 22:24 Dose: 20 mg Folic Acid (Folic Acid) 1 mg GT DAILYCM [facility] Last Admin: 07/25/18 10:46 Dose: 1 mg Sodium Chloride () 250 mls @ 15 mls/hr IV .[id number] PRN PRN Reason: SALINE FLUSH Piperacillin Sod/Tazobactam (Sod 3.375 gm/ Sodium Chloride) 50 mls @ 12.5 mls/hr IV Q12 [facility] Last Admin: 07/25/18 22:19 Dose: 12.5 mls/hr Cisatracurium Besylate 100 mg/ (Sodium Chloride) 250 mls @ 34.8 mls/hr IV .Q7H12M [facility] Last Admin: 07/26/18 03:42 Dose: 34.8 mls/hr Fentanyl () 100 mls @ 5 mls/hr IV .Q20H [facility] Last Admin: 07/26/18 04:19 Dose: 5 mls/hr Propofol (Diprivan) 1,000 mg in 100 mls @ 6.906 mls/hr CONT INF .Q12H [facility] Last Admin: 07/26/18 06:57 Dose: 6.906 mls/hr Enteral Nutritional Formula (Vital Af 1.2 Rick Liquid) 1,000 mls @ 60 mls/hr GT .[id number] [facility] Last Admin: 07/25/18 17:48 Dose: Not Given Insulin Glargine (Lantus (Bkc)) 50 units SC 18 [facility] Last Admin: 07/26/18 06:00 Dose: 50 u Insulin Human Lispro (Humalog Kwikpen (Bkc)) 0 unit SC Q4 [facility]; Protocol Last Admin: 07/26/18 06:00 Dose: 6 u Magnesium Hydroxide (Milk Of Magnesia) 30 ml GT DAILY PRN PRN PRN Reason: Constipation Methylprednisolone (Solu-Medrol) 40 mg IV Q8 [facility] Last Admin: 07/26/18 06:00 Dose: 40 mg Metoprolol Tartrate (Lopressor (Beta Patricia)) 25 mg GT BID [facility] Last Admin: 07/25/18 22:19 Dose: Not Given Ondansetron HCl (Zofran) 4 mg IV Q8H PRN PRN PRN Reason: NAUSEA Oseltamivir Phosphate (Tamiflu) 30 mg PO X1 ONE Stop: 07/26/18 09:01 Polyethylene Glycol (Miralax) 17 gm GT BID [facility] Pravastatin Sodium (Pravachol) 80 mg PO QHS [facility] Last Admin: 07/25/18 22:19 Dose: 80 mg Quetiapine Fumarate (Seroquel) 50 mg GT BID [facility] Last Admin: 07/25/18 22:19 Dose: 50 mg Senna/Docusate Sodium (Senokot-S, Ankita-Colace) 2 tablet PO BID [facility] Last Admin: 07/25/18 22:19 Dose: 2 tablet Sodium Chloride () 5 - 15 ml IV UD PRN PRN Reason: SALINE FLUSH Last Admin: 07/25/18 14:35 Dose: 15 ml Medical Necessity - Tobacco Use Smoking Status: Former smoker Tobacco Use: Non-smoker Assessment/Plan All Active Problems (Last Reviewed 07/20/18 @ 21:39 by Joaquín Laughlin DO) Acute bronchitis (Acute) Influenza A (Acute) Constipation (Acute) PAUL (acute kidney injury) (Acute) Atrial flutter (Acute) Paroxysmal atrial fibrillation (Acute) Hyperlipidemia (Acute) 63-year-old male with multiple comorbidities including nicotine dependence, chronic atrial fibrillation status post ablation, CAD status post PCI admitted with fever, chills, cough shortness of breath ongoing for 6 days. Patient was found to be positive for influenza and his imaging had shown pneumonia. Patient had gotten worse and was transferred to the ICU, intubated, on mechanical ventilator. 1. A. fib/atrial flutter with RVR, status post DC cardioversion, currently on IV amiodarone drip, IV cardizem drip, and metoprolol 50mg bid and on heparin drip Patient is in normal sinus rhythm, continue to monitor, cardiology following 2. Acute hypoxic respiratory failure secondary to multifocal bilateral community-acquired pneumonia/acute influenza bronchitis/?ARDS Remains intubated, private wealth advisor consulted, will continue to follow on recommendations 3. Acute influenza bronchitis, completed Tamiflu, continues to be on IV solumedrol, will continue to monitor. 4. CAP, multifocal, blood cultures are negative, ID consulted, on IV Zosyn, No fevers seen, labs in am, ID consulted, will follow up on recommendations 5. PAUL likely multifactorial, secondary to ongoing sepsis, poor p.o. intake, dehydration, Remains the same, non-oliguric, ephrology following, will monitor 6. CAD status post PCI, on aspirin 7. History of MIL, noncompliant with CPAP, RA, pulmonary nodule are stable for now, will be followed up in the outpatient 8. DVT prophylaxis - On Heparin drip Code Visit Inpatient E&M: 71281 Subs Hosp L3
--- NOTE | 2018-07-26 08:00 | EKG12_ITS ---
Test Reason : POST CARDIOVERSION Blood Pressure : / mmHG Vent. Rate : 087 BPM Atrial Rate : 087 BPM P-R Int : 118 ms QRS Dur : 084 ms QT Int : 356 ms P-R-T Axes : -14 021 047 degrees QTc Int : 428 ms Normal sinus rhythm Normal ECG When compared with ECG of 26-JUL-2018 08:06, MANUAL COMPARISON REQUIRED, DATA IS UNCONFIRMED Confirmed by SHREYAS RIOS, KIKO ([id number]), editorial intern DOMINGA KHAN ([id number]) on 07/28/2018 1:55:15 PM Referred By: JANNA Confirmed By:KIKO PRITCHTET MD
--- NOTE | 2018-07-26 08:00 | NURSING ---
Unable to complete CAM assessment d/t NMB/RASS -5
[2018-07-26] MEDS: Adenosine 6 MG/2 ML Syringe IV (08:08)
[2018-07-26] MEDS: Adenosine 6 MG/2 ML Syringe 12 MG IV (08:11)
[2018-07-26] MEDS: dilTIAZem 25 MG/5 ML Vial 20 MG IV BOLUS (08:20)
--- NOTE | 2018-07-26 08:35 | NURSING ---
Dr. Ponce at bedside, adjusting vent settings d/t SPO2 87-89, in aflutter 150-170s. Pt now 90% FIO2 and PEEP 12 in ACVC.
[2018-07-26 09:22] LABS: Magnesium 3.1 mg/dL (1.6-2.6)
[2018-07-26] MEDS: Enoxaparin 40 MG/0.4 ML Syringe SC (09:34)
[2018-07-26] MEDS: Chlorhexidine 15 ML PO ×2 (09:35→22:33)
[2018-07-26] MEDS: 0.9% NaCl Peripheral Flush Adult/Peds IV ×3 (09:42→14:01)
[2018-07-26 09:51] LABS: Bedside Glucose 258 mg/dL (70-110)
[2018-07-26 09:55] LABS: Allen Test POS; Base Excess 1 mmol/L (-2 to +2); Bicarbonate 28.4 mmol/L (22-26); Blood Gas Specimen Type ART; FI02 90; Mode A-C; O2 Delivery Device Vent; PEEP 12; PO2 78 mmHG (75-100); RR 16; SITE R Radial; SO2 92 % (95-99); Time Given 947; Total Carbon Dioxide 30 mmol/L; Vt 450; pCO2 65.7 mmHg (35-45); pH 7.24 (7.35-7.45)
--- NOTE | 2018-07-26 10:04 | CON.PCM_ITS ---
Problem List (1) Atrial flutter Status: Acute (2) S/P ablation of atrial fibrillation Status: Chronic (3) CAD S/P percutaneous coronary angioplasty Status: Chronic (4) Hyperlipidemia Status: Acute Qualifiers: Hyperlipidemia type: pure hypercholesterolemia Qualified Code(s): E78.00 - Pure hypercholesterolemia, unspecified; E78.0 - Pure hypercholesterolemia (5) HTN (hypertension) Status: Chronic Qualifiers: Hypertension type: essential hypertension Qualified Code(s): I10 - Essential (primary) hypertension (6) Influenza A Status: Acute (7) PAUL (acute kidney injury) Status: Acute Reason for Consult Date of Consultation: 07/26/18 History of Present Illness: The patient is a 63 year old white male with a past cardiovascular history of hyperlipidemia, hypertension, CAD, status post RCA PCI-2005, atrial fibrillation status post EPS/RFA-2016, who presents now for concerns of fatigue and subsequent diagnosis of influenza A and acute renal insufficiency with subsequent findings of acute atrial flutter with rapid ventricular response. The patient has been in the hospital undergoing evaluation care per internal medicine and pulmonology/critical care medicine. Based upon his ongoing pulmonology related issues he has been placed in the ICU and has been on mechanical intubation/ventilation and sedation. Earlier this morning he developed acute atrial dysrhythmia with atrial flutter with rapid ventricular response. He was treated with IV adenosine to assist in the diagnosis of his atrial dysrhythmia. He subsequently received IV diltiazem to assist with rate slowing. However despite this measure he has maintained atrial flutter with rapid ventricular response. According to his spouse he had been feeling poorly at home with respect to being tired and fatigued. He subsequently developed what appeared to be a respiratory tract related infection. He subsequently requested to be evaluated at the hospital which led to his current evaluation and care. She states he had not been complaining of any separate chest discomfort. She does not recall any concerns of palpitations or rapid heart rate complaints. She notes he had not had any near syncope or syncope. He is troponin I level had been negative. His ECG demonstrated sinus rhythm/sinus tachycardia with an inferior ID pattern of indeterminate age cannot be excluded. He has ECG this morning demonstrated what appeared to be atrial flutter. His chest x-ray has been reported as demonstrating bilateral airspace disease. He had a transthoracic echocardiogram performed on 07/24/2018. His left ventricle was thought to be normal with an LVEF 55%, mild concentric LVH, mild TR, estimated RV systolic pressure 26 mmHg, and decreased diastolic compliance. Based upon previous medical records available for review he had a diagnostic cardiac catheterization performed in 2005 at [facility]. At that time the left main was reported with no significant disease, the LAD was reported as angiographically normal, the LCx had no significant disease, and the RCA had a 70% napkin ring type lesion followed by a 50-60% stenosis. He subsequently underwent PTCA/RACHEL of the mid RCA. It appears he underwent further electrophysiology evaluation in [address] [facility]. At that time he received EPS/RFA for his atrial dysrhythmia of atrial fibrillation. Over time he was allowed by his sewing machine repairer to discontinue his diltiazem therapy and his anticoagulant therapy with Xarelto. [] Past Medical History Allergies/Adverse Reactions: Allergies atorvastatin [From Lipitor] Adverse Reaction (Severe, Verified 03/13/18 09:46) Myalgias IVP Dye Adverse Reaction (Unknown, Uncoded 09/08/17 14:23) Unknown Home Medications: Ambulatory Orders Medication Instructions Recorded tamsulosin 0.4 mg capsule 0.4 mg PO DAILY 06/29/17 methotrexate sodium 2.5 mg tablet 17.5 mg PO TU tab 09/08/17 Aspirin [Aspir-Low] 81 mg PO DAILY 07/20/18 Folic Acid 1 mg PO DAILY 07/20/18 Metoprolol Succinate [Toprol Xl] 50 mg PO DAILY 07/20/18 Pravastatin Sodium 80 mg PO QHS 07/20/18 Past Medical History (Chronic Problems): Chronic Problems (Last Reviewed 07/20/18 @ 21:39 by Joaquín Laughlin DO) S/P ablation of atrial fibrillation (Chronic) CAD S/P percutaneous coronary angioplasty (Chronic) Presence of stent in coronary artery (Chronic ~03/15/06) PTCA/RACHEL to Mid RCA 03/15/06 Atherosclerotic heart disease of [place] coronary artery without angina pectoris (Chronic) PTCA/RACHEL to Mid RCA 03/15/06 HTN (hypertension) (Chronic) Surgical History: angioplasty - *Family History Maternal Family History: Family History (Last Reviewed 07/20/18 @ 21:40 by Joaquín Laughlin DO) Son Diabetes Mother Myocardial infarction, Onset Age: 73 Father No problems noted. Son Diabetes Lives: Spouse/ Significant Other Smoking Status: Former smoker Tobacco Use: Non-smoker Alcohol: None Drugs: None Review of Systems - Review of Systems General: Reports: Fatigue Cardiovascular: Reports: Shortness of Breath Respiratory: Reports: Cough Genitourinary: Denies: Dysuria, Hematuria Skin: Denies: Rash Subjectve: This is a 63-year-old white male who is currently mechanically intubated, ventilated, and sedated. Objective: Vital Signs Temp Pulse Resp BP Pulse Ox 98.8 F 162 H 16 142/88 H 93 07/26/18 08:45 07/26/18 09:00 07/26/18 09:00 07/26/18 09:00 07/26/18 09:00 Oxygen Flow Rate (L/min) 15 Oxygen Delivery Method Mechanical Ventilator Weight: 257 lb 15.053 oz Body Mass Index (BMI) 38.6 Intake and Output for Last 24 Hours 07/24/18 07/25/18 07/26/18 23:59 23:59 23:59 Intake Total 3419 / 3419 6071.6 / 6071.6 935 / 935 Output Total 1550 / 1550 1725 / 1725 450 / 450 Balance 1869 / 1869 4346.6 / 4346.6 485 / 485 General: Ill Appearing Neck: No JVD Lungs: Rhonchi Cardiovascular: Irregular Rhythm, Normal S1, Normal S2 Abdomen: Bowel Sounds Present, Soft, Non Tender Extremities: No edema Psych/Mental Status: Appropriate 07/25/18 20:25: Hemoglobin A1c 9.2 H 07/26/18 04:40: Sodium 146 H, Potassium 5.0, Chloride 110 H, Carbon Dioxide 27.0, Anion Gap 9, BUN 67 H, Creatinine 2.16 H, Est GFR (MDRD) Af Amer 40 L, Est GFR (MDRD) Non-Af 33 L, BUN/Creatinine Ratio 31.0 H, Glucose 271 H, Calcium 7.9 L 07/26/18 08:55: Magnesium 3.1 H, Troponin I < 0.015 07/26/18 09:52: pH 7.24 L, Bicarbonate Actual 28.4 H, POC Total CO2 30, Base Excess 1, O2 Saturation 92 L, ABG pCO2 65.7 H, ABG pO2 78, Mir Test POS Rhythm: Atrial flutter EKG: As noted above ECHO: As noted above Cardiac Cath: As noted above PCI: As noted above EPS: As noted above CXR: As noted above Assessment/Plan 1. Atrial flutter The patient has demonstrated atrial flutter. The etiology may be related to a combination of his underlying cardiovascular disease history/atrial rhythm related history superimposed upon his ongoing pulmonary events. At the present time he will continue to be monitored. He will continue rate control therapy. He will continue with antiarrhythmic therapy. He will continue with anticoagulant therapy. He will, if not well controlled, proceed with further evaluation and care with synchronized biphasic DC cardioversion. 2. Atrial fibrillation status post EPS/RFA At the moment he is not demonstrated obvious recurrent atrial fibrillation. He will continue evaluation care as noted above. 3. CAD status post RCA PTCA/RACHEL He will need to be monitored for any obvious involvement of his coronary artery system. Thus far his troponin I level was negative. He has remained hemodynamically stable. He has not had no acute changes on his ECG. He will continue medical management as tolerated. 4. Hyperlipidemia He will continue lipid-lowering therapy as tolerated. 5. Hypertension His blood pressure appears to be stable to elevated at this time. He will continue medical adjustment as needed. 6. Influenza A Remains on the ventilator at this time. He will continue evaluation care per pulmonology/critical care medicine. 7. Acute renal insufficiency His BUN and creatinine will need to be followed. This may impact his medications, etc. Comment: The above was discussed and reviewed with Dr. Ponce. This note was generated using a voice recognition system and there may be incorrect words, spelling or punctuation that were not noted when reviewing the office note prior to saving.
--- NOTE | 2018-07-26 10:08 | NURSING ---
Kris Mckeon, and Ritesh at bedside for cardioversion. 141 16 93% on 90% FIO2 165/86, aflutter. 1009 shock delivered 200J, remains in aflutter; 1010 300J shock delivered HR 120-130s afib/flutter; 1011 360J shock delivered- pt ST 106 w/ PACs 16 93% 161/108.
[2018-07-26] MEDS: Ipratropium 0.5 MG/2.5 ML SOLUTION INHALATION ×4 (10:23→23:04)
--- NOTE | 2018-07-26 10:30 | PCM.OPRPT ---
Problem List (1) Atrial flutter Status: Acute (2) S/P ablation of atrial fibrillation Status: Chronic (3) CAD S/P percutaneous coronary angioplasty Status: Chronic (4) Hyperlipidemia Status: Acute Qualifiers: Hyperlipidemia type: pure hypercholesterolemia Qualified Code(s): E78.00 - Pure hypercholesterolemia, unspecified; E78.0 - Pure hypercholesterolemia (5) HTN (hypertension) Status: Chronic Qualifiers: Hypertension type: essential hypertension Qualified Code(s): I10 - Essential (primary) hypertension (6) Influenza A Status: Acute (7) PAUL (acute kidney injury) Status: Acute Report of Operation Date of Procedure: 07/26/18 Pre-Operative Diagnosis: Atrial flutter Post-Operative Diagnosis: Atrial flutter Surgery/Procedure Performed:: Synchronized biphasic DC cardioversion Type of Anesthesia:: IV Sedation Anesthesiologist: Fabio Ponce Specimen's removed: N/A Description of Procedure: Synchronized biphasic DC cardioversion: 200 J x1: Result: Sinus rhythm with subsequent return to atrial flutter Synchronized biphasic DC cardioversion: 300 J x1: Result: Sinus rhythm with subsequent return to atrial flutter Synchronized biphasic DC cardioversion: 360 J x1: Result: Sinus rhythm Complications: No apparent complications - Complications No apparent complications
--- NOTE | 2018-07-26 10:32 | EKG12_ITS ---
Test Reason : SVT Blood Pressure : / mmHG Vent. Rate : 170 BPM Atrial Rate : 340 BPM P-R Int : 000 ms QRS Dur : 122 ms QT Int : 282 ms P-R-T Axes : 260 -07 -37 degrees QTc Int : 474 ms Atrial flutter Nonspecific ST and T wave abnormality Abnormal ECG Confirmed by SHREYAS RIOS, KIKO ([id number]), deputy editor in chief DOMINGA KHAN ([id number]) on 07/28/2018 1:55:31 PM Referred By: SANDI Confirmed By:KIKO PRITCHETT MD
[2018-07-26 10:44] LABS: International Normalized Ratio 1.1; Prothrombin Time (Protime)PT. 13.5 SECONDS (11.7-14.9)
[2018-07-26 10:45] LABS: Partial Thromboplast Time 26.3 Seconds (24.1-36.2)
[2018-07-26] MEDS: HEPARIN/D5w 25,000 UNITS 25,000 UNITS/250 ML IV.SOLN. 16 UNITS IV (10:55)
--- NOTE | 2018-07-26 11:05 | PN.RENAL_ITS ---
Patient Problems: Active and Suspected Problems (Last Reviewed 07/20/18 @ 21:39 by Joaquín Laughlin DO) Acute bronchitis (Acute) Influenza A (Acute) Constipation (Acute) PAUL (acute kidney injury) (Acute) Atrial flutter (Acute) Subjective: events noted - Physical Exam Neck: Supple, No JVD, Negative Carotid Bruits Lungs: Normal air movement, Rales Cardiovascular: Regular rate, No murmurs Abdomen: Bowel Sounds Present, Soft, Non Tender Extremities: No edema, Capillary Refill Less than 3 Seconds Skin: No rashes, No breakdown Vital Signs Temp Pulse Resp BP Pulse Ox 98.8 F 84 16 131/71 H 92 07/26/18 08:45 07/26/18 10:45 07/26/18 10:45 07/26/18 10:45 07/26/18 10:45 Oxygen Flow Rate (L/min) 15 Oxygen Delivery Method Mechanical Ventilator Weight: 117 kg Body Mass Index (BMI) 38.6 Intake and Output for Last 24 Hours 07/24/18 07/25/18 07/26/18 23:59 23:59 23:59 Intake Total 3419 / 3419 6071.6 / 6071.6 935 / 935 Output Total 1550 / 1550 1725 / 1725 450 / 450 Balance 1869 / 1869 4346.6 / 4346.6 485 / 485 Microbiology Past 72 Hours 07/24/18 10:10 Gram Stain - Final Sputum, Tracheal Aspirate Respiratory Culture - Final Presumptive C albicans 07/21/18 11:25 Gram Stain - Final Sputum, Expectorated/Coughed Respiratory Culture - Final Mixed normal respiratory laverne. No Streptococcus pneumoniae, beta-hemolytic Streptococcus or Staphylococcus aureus isolated. 07/21/18 11:55 Blood Culture - Preliminary Blood Culture (Wb) - Right Hand No growth in 48 hours. 07/21/18 11:45 Blood Culture - Preliminary Blood Culture (Wb) - Anticubital Right No growth in 48 hours. Laboratory Tests Past 24 Hrs 07/25/18 07/25/18 07/25/18 11:00 11:50 11:50 Eos Smear Total Cells Pending PT INR APTT Specimen Type Sample Site pH Bicarbonate Actual POC Total CO2 Base Excess O2 Saturation O2 % ABG pCO2 ABG pO2 Mir Test Respiration Rate O2 Delivery Device Vent Mode Tidal Volume POC PEEP Blood Gas Notified Whom Blood Gas Notified Time Sodium Potassium Chloride Carbon Dioxide Anion Gap BUN Creatinine Estim Creat Clear Calc Est GFR (MDRD) Af Amer Est GFR (MDRD) Non-Af BUN/Creatinine Ratio Glucose Hemoglobin A1c Calcium Magnesium Troponin I Ur Random Sodium Urine Creatinine 125.00 Random Vancomycin 23.8 H 07/25/18 07/25/18 07/26/18 11:50 20:25 04:40 Eos Smear Total Cells PT INR APTT Specimen Type Sample Site pH Bicarbonate Actual POC Total CO2 Base Excess O2 Saturation O2 % ABG pCO2 ABG pO2 Mir Test Respiration Rate O2 Delivery Device Vent Mode Tidal Volume POC PEEP Blood Gas Notified Whom Blood Gas Notified Time Sodium 146 H Potassium 5.0 Chloride 110 H Carbon Dioxide 27.0 Anion Gap 9 BUN 67 H Creatinine 2.16 H Estim Creat Clear Calc 32.99 Est GFR (MDRD) Af Amer 40 L Est GFR (MDRD) Non-Af 33 L BUN/Creatinine Ratio 31.0 H Glucose 271 H Hemoglobin A1c 9.2 H Calcium 7.9 L Magnesium Troponin I Ur Random Sodium 17 Urine Creatinine Random Vancomycin 07/26/18 07/26/18 07/26/18 08:55 09:52 10:23 Eos Smear Total Cells PT 13.5 INR 1.1 APTT 26.3 Specimen Type ART Sample Site R Radial pH 7.24 L Bicarbonate Actual 28.4 H POC Total CO2 30 Base Excess 1 O2 Saturation 92 L O2 % 90 ABG pCO2 65.7 H ABG pO2 78 Mir Test POS Respiration Rate 16 O2 Delivery Device Vent Vent Mode A-C Tidal Volume 450 POC PEEP 12 Blood Gas Notified Whom ICU MD Blood Gas Notified Time 947 Sodium Potassium Chloride Carbon Dioxide Anion Gap BUN Creatinine Estim Creat Clear Calc Est GFR (MDRD) Af Amer Est GFR (MDRD) Non-Af BUN/Creatinine Ratio Glucose Hemoglobin A1c Calcium Magnesium 3.1 H Troponin I < 0.015 Ur Random Sodium Urine Creatinine Random Vancomycin POC Glucose 07/26/18 07/26/18 07/26/18 09:32 05:53 01:15 POC Glucose 258 H 234 H 280 H 07/25/18 07/25/18 07/25/18 22:22 17:44 14:23 POC Glucose 307 H 352 H 418 H 07/25/18 10:50 POC Glucose 404 H Medical Necessity - Tobacco Use Smoking Status: Former smoker Tobacco Use: Non-smoker Assessment/Plan All Active Problems (Last Reviewed 07/20/18 @ 21:39 by Joaquín Laughlin DO) Acute bronchitis (Acute) Influenza A (Acute) Constipation (Acute) PAUL (acute kidney injury) (Acute) Atrial flutter (Acute) Paroxysmal atrial fibrillation (Acute) Hyperlipidemia (Acute) PAUL. baseline creatinine is normal. UA reviewed. Qiu in hence chances of obstruction are low. little late to develop contrast nephropathy and this is typically oliguric failure. PAUL is likely ATN due to severe sepsis, ARDS. Cr today is about the same as yesterday. urine output is acceptable ? peak creatinine hold off [employer] ok for lasix as needed
[2018-07-26] MEDS: Senna/Docusate Sodium 1 Tablet 2 TABLET PO ×2 (11:25→22:32)
[2018-07-26] MEDS: Famotidine 20 MG Tablet GT ×2 (11:25→22:33)
[2018-07-26] MEDS: Folic Acid 1 MG Tablet GT (11:25)
[2018-07-26] MEDS: Polyethylene Glycol 3350 17 GM PACKET GT ×2 (11:25→22:20)
[2018-07-26] MEDS: Metoprolol Tartrate 50 MG Tablet PO ×2 (11:25→22:33)
[2018-07-26] MEDS: Oseltamivir Phosphate 30 MG Capsule PO (11:42)
[2018-07-26] MEDS: Aspirin 81 MG TAB.CHEW GT (11:42)
--- NOTE | 2018-07-26 12:30 | PCM.PN.ID ---
Patient Problems: Active and Suspected Problems (Last Reviewed 07/20/18 @ 21:39 by Joaquín Laughlin DO) Acute bronchitis (Acute) Influenza A (Acute) Constipation (Acute) PAUL (acute kidney injury) (Acute) Atrial flutter (Acute) Subjective: On vent, cardioverted this AM, on paralytics - Physical Exam General: - - intubated, sedated, paralyzed Lungs: Rhonchi Cardiovascular: Regular rate, Regular Rhythm Abdomen: Soft, Non Tender, Non-Distended Extremities: Edema Skin: No rashes Vital Signs Temp Pulse Resp BP Pulse Ox 98.8 F 76 16 130/76 H 94 07/26/18 12:00 07/26/18 12:00 07/26/18 12:00 07/26/18 12:00 07/26/18 12:00 Oxygen Flow Rate (L/min) 15 Oxygen Delivery Method Mechanical Ventilator Weight: 117 kg Body Mass Index (BMI) 38.6 Intake and Output for Last 24 Hours 07/24/18 07/25/18 07/26/18 23:59 23:59 23:59 Intake Total 3419 / 3419 6071.6 / 6071.6 1670.3 / 1670.3 Output Total 1550 / 1550 1725 / 1725 900 / 900 Balance 1869 / 1869 4346.6 / 4346.6 770.3 / 770.3 Microbiology Past 72 Hours 07/24/18 10:10 Gram Stain - Final Sputum, Tracheal Aspirate Respiratory Culture - Final Presumptive C albicans 07/21/18 11:25 Gram Stain - Final Sputum, Expectorated/Coughed Respiratory Culture - Final Mixed normal respiratory laverne. No Streptococcus pneumoniae, beta-hemolytic Streptococcus or Staphylococcus aureus isolated. 07/21/18 11:55 Blood Culture - Preliminary Blood Culture (Wb) - Right Hand No growth in 48 hours. 07/21/18 11:45 Blood Culture - Preliminary Blood Culture (Wb) - Anticubital Right No growth in 48 hours. Laboratory Tests Past 24 Hrs 07/25/18 07/25/18 07/25/18 11:00 11:50 11:50 Eos Smear Total Cells Pending PT INR APTT Specimen Type Sample Site pH Bicarbonate Actual POC Total CO2 Base Excess O2 Saturation O2 % ABG pCO2 ABG pO2 Mir Test Respiration Rate O2 Delivery Device Vent Mode Tidal Volume POC PEEP Blood Gas Notified Whom Blood Gas Notified Time Sodium Potassium Chloride Carbon Dioxide Anion Gap BUN Creatinine Estim Creat Clear Calc Est GFR (MDRD) Af Amer Est GFR (MDRD) Non-Af BUN/Creatinine Ratio Glucose Hemoglobin A1c Calcium Magnesium Troponin I Ur Random Sodium Urine Creatinine 125.00 Random Vancomycin 23.8 H 07/25/18 07/25/18 07/26/18 11:50 20:25 04:40 Eos Smear Total Cells PT INR APTT Specimen Type Sample Site pH Bicarbonate Actual POC Total CO2 Base Excess O2 Saturation O2 % ABG pCO2 ABG pO2 Mir Test Respiration Rate O2 Delivery Device Vent Mode Tidal Volume POC PEEP Blood Gas Notified Whom Blood Gas Notified Time Sodium 146 H Potassium 5.0 Chloride 110 H Carbon Dioxide 27.0 Anion Gap 9 BUN 67 H Creatinine 2.16 H Estim Creat Clear Calc 32.99 Est GFR (MDRD) Af Amer 40 L Est GFR (MDRD) Non-Af 33 L BUN/Creatinine Ratio 31.0 H Glucose 271 H Hemoglobin A1c 9.2 H Calcium 7.9 L Magnesium Troponin I Ur Random Sodium 17 Urine Creatinine Random Vancomycin 07/26/18 07/26/18 07/26/18 08:55 09:52 10:23 Eos Smear Total Cells PT 13.5 INR 1.1 APTT 26.3 Specimen Type ART Sample Site R Radial pH 7.24 L Bicarbonate Actual 28.4 H POC Total CO2 30 Base Excess 1 O2 Saturation 92 L O2 % 90 ABG pCO2 65.7 H ABG pO2 78 Mir Test POS Respiration Rate 16 O2 Delivery Device Vent Vent Mode A-C Tidal Volume 450 POC PEEP 12 Blood Gas Notified Whom ICU MD Blood Gas Notified Time 947 Sodium Potassium Chloride Carbon Dioxide Anion Gap BUN Creatinine Estim Creat Clear Calc Est GFR (MDRD) Af Amer Est GFR (MDRD) Non-Af BUN/Creatinine Ratio Glucose Hemoglobin A1c Calcium Magnesium 3.1 H Troponin I < 0.015 Ur Random Sodium Urine Creatinine Random Vancomycin POC Glucose 07/26/18 07/26/18 07/26/18 09:32 05:53 01:15 POC Glucose 258 H 234 H 280 H 07/25/18 07/25/18 07/25/18 22:22 17:44 14:23 POC Glucose 307 H 352 H 418 H Medical Necessity - Tobacco Use Smoking Status: Former smoker Tobacco Use: Non-smoker Route of nutrition/ use of supplements: [] Nutritional Intake: [] IV Site: [] Qiu Catheter: [] - Assessment/Plan Antibiotics: [] Assessment/Plan: [] Active and Suspected Problems (Last Reviewed 07/20/18 @ 21:39 by Joaquín Laughlin DO) Acute bronchitis (Acute) Influenza A (Acute) Constipation (Acute) Acute hypoxic resp failure with ARDS and flu A - now with PAUL. Completed tamiflu this AM. On zosyn. Sputum gram stain 07/24 with no GPC seen. MRSA screening pcr was neg. Will follow, d/w Dr. Ponce.
[2018-07-26 14:05] LABS: Bedside Glucose 292 mg/dL (70-110)
[2018-07-26] MEDS: Vital AF 1.2 Cal Liquid 1,000 ML 60 ML GT (14:15)
[2018-07-26 17:34] LABS: Partial Thromboplast Time 92.7 Seconds (24.1-36.2)
[2018-07-26 18:16] LABS: Bedside Glucose 327 mg/dL (70-110)
[2018-07-26 20:12] LABS: Eosinophil Ct. Urine No Eosinophils Seen % (.)
[2018-07-26] MEDS: Pravastatin 80 MG Tablet PO (22:32)
[2018-07-26 22:56] LABS: Bedside Glucose 329 mg/dL (70-110)
[2018-07-26 23:21] LABS: Partial Thromboplast Time 106.3 Seconds (24.1-36.2)
[2018-07-27] VITALS (46 sets, daily range): BP systolic 96–115; BP diastolic 44–63; PULSE 51–66; RESP 15–17; TEMP 36.9–37.1; O2SAT 88–94
[2018-07-27] MEDS: Propofol 10MG/Ml 1,000 MG/100 ML Bottle 6.906 MG CONT INF ×9 (00:24→22:56)
[2018-07-27] MEDS: Insulin Lispro 100 UNIT/ML INSULN.PEN SC ×6 (01:43→21:46)
[2018-07-27 01:51] LABS: Bedside Glucose 296 mg/dL (70-110)
[2018-07-27] MEDS: fentaNYL drip 100 ML 5 MCG IV ×5 (02:44→23:40)
[2018-07-27] MEDS: Ipratropium 0.5 MG/2.5 ML SOLUTION INHALATION ×6 (03:50→22:30)
[2018-07-27] MEDS: CHLORHEXIDINE GLUC 2% CLOTH 1 EACH TOWELETTE TOPICAL (05:54)
[2018-07-27 06:07] LABS: Anion Gap 9 (5-15); BUN 67 mg/dL (7-18); BUN/Creat Ratio 31.5 RATIO (10-20); Calcium,Total 8.1 mg/dL (8.5-10.1); Chloride 108 mmol/L (98-107); Creatinine, Serum 2.13 mg/dL (0.70-1.30); EST Glomerular Filtration Rate 33 mL/min (>60); Est Glom Filt Rate - Afr Amer 40 mL/min (>60); Estimated Creatinine Clearance 33.45 ml/min; Glucose 328 mg/dL (74-106); Potassium 5.2 mmol/L (3.5-5.1); Sodium Level 143 mmol/L (136-145)
[2018-07-27 06:10] LABS: Partial Thromboplast Time 72.8 Seconds (24.1-36.2)
[2018-07-27 06:32] LABS: Hematocrit 38.8 % (40-54); Hemoglobin 12.1 g/dl (13.0-16.5); Mean Corp Hgb Conc 31.2 g/gl (32-36); Mean Corpuscular Hgb 31.2 pg (27.0-32.0); Mean Platelet Vol. 10.9 fl (6.2-12.0); Platelet Count 236 K/mm3 (150-450); RBC Distribution Width CV 13.5 % (11.6-14.6); RBC Distribution Width SD 49.3 fl (35.1-43.9); Red Blood Count 3.88 M/mm3 (4.6-6.2); White Blood Count 9.7 K/mm3 (4.4-11.0)
--- NOTE | 2018-07-27 06:34 | PCM.PN.INT ---
Subjective: The patient was seen and examined at the bedside this morning. Events from the last 24 hours have been reviewed. The patient is currently afebrile, hemodynamically stable and maintaining appropriate oxygen saturations on assist control mode of mechanical ventilation with a PEEP of 10 and FiO2 of 60%. The patient remains heavily sedated with pharmacologic paralysis in place. Creatinine remains stable at 2.13. BIS this morning was noted to be 48. RASS remains at a -5 on Propofol and Fentanyl. He remains in normal sinus rhythm following cardioversion yesterday. He is no longer on Cardizem, but remains on a can and use amiodarone infusion, along with a heparin drip. Objective: The patient's most recent lab work, culture data and imaging studies have all been personally reviewed. Chest imaging studies have all revealed significant multifocal bilateral infiltrates. Surface echocardiogram revealed mild concentric LVH with an ejection fraction of 55% and stage II diastolic dysfunction. Pulmonary artery systolic pressure was estimated to be 26 mmHg. The patient's rapid influenza screen was positive for influenza A. The remainder of his infectious workup, including sputum cultures have been unrevealing to date. General: - - Remains intubated, sedated and mechanically ventilated. HEENT: Atraumatic, PERRLA, Normocephalic Oral: No Gingival or Mucosal Lesions/ Ulcerations, - - Endotracheal and OG tubes remain in place. Neck: Supple, No Nodes, Trachea Midline Lungs: No rhonchi, No wheeze, No rales, Diminished Cardiovascular: Regular rate, Regular Rhythm, Normal S1, Normal S2, No murmurs Abdomen: Bowel Sounds Present, Soft, Non Tender, Obese Extremities: No clubbing, No cyanosis, No edema Skin: No breakdown Musculoskeletal: No Tenderness to Palpation of Joints or Extremities Lymphatic: No Cervical, Supraclavicular, or Inguinal Adenopathy Neurological: - - The patient is heavily sedated and pharmacologically paralyzed. Vital Signs Temp Pulse Resp BP Pulse Ox 37.1 C 57 L 16 98/51 L 93 07/27/18 06:00 07/27/18 06:00 07/27/18 06:00 07/27/18 06:00 07/27/18 06:00 Oxygen Flow Rate (L/min) 15 Oxygen Delivery Method Mechanical Ventilator Weight: 265 lb 10.512 oz Body Mass Index (BMI) 38.6 Intake and Output for Last 24 Hours 07/25/18 07/26/18 07/27/18 23:59 23:59 23:59 Intake Total 6071.6 / 6071.6 3849.7 / 3849.7 1346 / 1346 Output Total 1725 / 1725 1750 / 1750 400 / 400 Balance 4346.6 / 4346.6 2099.7 / 2099.7 946 / 946 Labs (Last 48 Hours) 07/25/18 07/25/18 07/25/18 05:25 05:41 07:50 WBC RBC Hgb Hct MCV MCH MCHC RDW RDW Differential Plt Count Neut % (Auto) Absolute Neuts (auto) Total Counted Diff Path Review Reviewed Eos Smear Total Cells PT INR APTT Specimen Type ART Sample Site R Radial pH 7.35 Bicarbonate Actual 25.3 POC Total CO2 27 Base Excess 0 O2 Saturation 92 L O2 % 100 ABG pCO2 45.6 H ABG pO2 67 L Mir Test NA Respiration Rate 16 O2 Delivery Device Vent Minute Volume 8.00 Vent Mode A-C Tidal Volume 450 POC PEEP 10 Blood Gas Notified Whom ICU MD Blood Gas Notified Time 745 Sodium Potassium Chloride Carbon Dioxide Anion Gap BUN Creatinine Estim Creat Clear Calc Est GFR (MDRD) Af Amer Est GFR (MDRD) Non-Af BUN/Creatinine Ratio Glucose Hemoglobin A1c Calcium Magnesium Troponin I Ur Random Sodium Urine Creatinine Random Vancomycin POC Glucose 461 H* 07/25/18 07/25/18 07/25/18 10:50 11:00 11:50 WBC RBC Hgb Hct MCV MCH MCHC RDW RDW Differential Plt Count Neut % (Auto) Absolute Neuts (auto) Total Counted Diff Path Review Eos Smear Total Cells No Eosinophils Seen PT INR APTT Specimen Type Sample Site pH Bicarbonate Actual POC Total CO2 Base Excess O2 Saturation O2 % ABG pCO2 ABG pO2 Mir Test Respiration Rate O2 Delivery Device Minute Volume Vent Mode Tidal Volume POC PEEP Blood Gas Notified Whom Blood Gas Notified Time Sodium Potassium Chloride Carbon Dioxide Anion Gap BUN Creatinine Estim Creat Clear Calc Est GFR (MDRD) Af Amer Est GFR (MDRD) Non-Af BUN/Creatinine Ratio Glucose Hemoglobin A1c Calcium Magnesium Troponin I Ur Random Sodium Urine Creatinine Random Vancomycin 23.8 H POC Glucose 404 H 07/25/18 07/25/18 07/25/18 11:50 11:50 14:23 WBC RBC Hgb Hct MCV MCH MCHC RDW RDW Differential Plt Count Neut % (Auto) Absolute Neuts (auto) Total Counted Diff Path Review Eos Smear Total Cells PT INR APTT Specimen Type Sample Site pH Bicarbonate Actual POC Total CO2 Base Excess O2 Saturation O2 % ABG pCO2 ABG pO2 Mir Test Respiration Rate O2 Delivery Device Minute Volume Vent Mode Tidal Volume POC PEEP Blood Gas Notified Whom Blood Gas Notified Time Sodium Potassium Chloride Carbon Dioxide Anion Gap BUN Creatinine Estim Creat Clear Calc Est GFR (MDRD) Af Amer Est GFR (MDRD) Non-Af BUN/Creatinine Ratio Glucose Hemoglobin A1c Calcium Magnesium Troponin I Ur Random Sodium 17 Urine Creatinine 125.00 Random Vancomycin POC Glucose 418 H 07/25/18 07/25/18 07/25/18 17:44 20:25 22:22 WBC RBC Hgb Hct MCV MCH MCHC RDW RDW Differential Plt Count Neut % (Auto) Absolute Neuts (auto) Total Counted Diff Path Review Eos Smear Total Cells PT INR APTT Specimen Type Sample Site pH Bicarbonate Actual POC Total CO2 Base Excess O2 Saturation O2 % ABG pCO2 ABG pO2 Mir Test Respiration Rate O2 Delivery Device Minute Volume Vent Mode Tidal Volume POC PEEP Blood Gas Notified Whom Blood Gas Notified Time Sodium Potassium Chloride Carbon Dioxide Anion Gap BUN Creatinine Estim Creat Clear Calc Est GFR (MDRD) Af Amer Est GFR (MDRD) Non-Af BUN/Creatinine Ratio Glucose Hemoglobin A1c 9.2 H Calcium Magnesium Troponin I Ur Random Sodium Urine Creatinine Random Vancomycin POC Glucose 352 H 307 H 07/26/18 07/26/18 07/26/18 01:15 04:40 05:53 WBC RBC Hgb Hct MCV MCH MCHC RDW RDW Differential Plt Count Neut % (Auto) Absolute Neuts (auto) Total Counted Diff Path Review Eos Smear Total Cells PT INR APTT Specimen Type Sample Site pH Bicarbonate Actual POC Total CO2 Base Excess O2 Saturation O2 % ABG pCO2 ABG pO2 Mir Test Respiration Rate O2 Delivery Device Minute Volume Vent Mode Tidal Volume POC PEEP Blood Gas Notified Whom Blood Gas Notified Time Sodium 146 H Potassium 5.0 Chloride 110 H Carbon Dioxide 27.0 Anion Gap 9 BUN 67 H Creatinine 2.16 H Estim Creat Clear Calc 32.99 Est GFR (MDRD) Af Amer 40 L Est GFR (MDRD) Non-Af 33 L BUN/Creatinine Ratio 31.0 H Glucose 271 H Hemoglobin A1c Calcium 7.9 L Magnesium Troponin I Ur Random Sodium Urine Creatinine Random Vancomycin POC Glucose 280 H 234 H 07/26/18 07/26/18 07/26/18 08:55 09:32 09:52 WBC RBC Hgb Hct MCV MCH MCHC RDW RDW Differential Plt Count Neut % (Auto) Absolute Neuts (auto) Total Counted Diff Path Review Eos Smear Total Cells PT INR APTT Specimen Type ART Sample Site R Radial pH 7.24 L Bicarbonate Actual 28.4 H POC Total CO2 30 Base Excess 1 O2 Saturation 92 L O2 % 90 ABG pCO2 65.7 H ABG pO2 78 Mir Test POS Respiration Rate 16 O2 Delivery Device Vent Minute Volume Vent Mode A-C Tidal Volume 450 POC PEEP 12 Blood Gas Notified Whom ICU MD Blood Gas Notified Time 947 Sodium Potassium Chloride Carbon Dioxide Anion Gap BUN Creatinine Estim Creat Clear Calc Est GFR (MDRD) Af Amer Est GFR (MDRD) Non-Af BUN/Creatinine Ratio Glucose Hemoglobin A1c Calcium Magnesium 3.1 H Troponin I < 0.015 Ur Random Sodium Urine Creatinine Random Vancomycin POC Glucose 258 H 07/26/18 07/26/18 07/26/18 10:23 13:58 17:10 WBC RBC Hgb Hct MCV MCH MCHC RDW RDW Differential Plt Count Neut % (Auto) Absolute Neuts (auto) Total Counted Diff Path Review Eos Smear Total Cells PT 13.5 INR 1.1 APTT 26.3 92.7 H* Specimen Type Sample Site pH Bicarbonate Actual POC Total CO2 Base Excess O2 Saturation O2 % ABG pCO2 ABG pO2 Mir Test Respiration Rate O2 Delivery Device Minute Volume Vent Mode Tidal Volume POC PEEP Blood Gas Notified Whom Blood Gas Notified Time Sodium Potassium Chloride Carbon Dioxide Anion Gap BUN Creatinine Estim Creat Clear Calc Est GFR (MDRD) Af Amer Est GFR (MDRD) Non-Af BUN/Creatinine Ratio Glucose Hemoglobin A1c Calcium Magnesium Troponin I Ur Random Sodium Urine Creatinine Random Vancomycin POC Glucose 292 H 07/26/18 07/26/18 07/26/18 17:46 22:30 22:55 WBC RBC Hgb Hct MCV MCH MCHC RDW RDW Differential Plt Count Neut % (Auto) Absolute Neuts (auto) Total Counted Diff Path Review Eos Smear Total Cells PT INR APTT 106.3 H* Specimen Type Sample Site pH Bicarbonate Actual POC Total CO2 Base Excess O2 Saturation O2 % ABG pCO2 ABG pO2 Mir Test Respiration Rate O2 Delivery Device Minute Volume Vent Mode Tidal Volume POC PEEP Blood Gas Notified Whom Blood Gas Notified Time Sodium Potassium Chloride Carbon Dioxide Anion Gap BUN Creatinine Estim Creat Clear Calc Est GFR (MDRD) Af Amer Est GFR (MDRD) Non-Af BUN/Creatinine Ratio Glucose Hemoglobin A1c Calcium Magnesium Troponin I Ur Random Sodium Urine Creatinine Random Vancomycin POC Glucose 327 H 329 H 07/27/18 07/27/18 07/27/18 01:29 05:45 05:45 WBC Pending RBC Pending Hgb Pending Hct Pending MCV Pending MCH Pending MCHC Pending RDW Pending RDW Differential Pending Plt Count Pending Neut % (Auto) Pending Absolute Neuts (auto) Pending Total Counted Pending Diff Path Review Eos Smear Total Cells PT INR APTT Specimen Type Sample Site pH Bicarbonate Actual POC Total CO2 Base Excess O2 Saturation O2 % ABG pCO2 ABG pO2 Mir Test Respiration Rate O2 Delivery Device Minute Volume Vent Mode Tidal Volume POC PEEP Blood Gas Notified Whom Blood Gas Notified Time Sodium 143 Potassium 5.2 H Chloride 108 H Carbon Dioxide 26.0 Anion Gap 9 BUN 67 H Creatinine 2.13 H Estim Creat Clear Calc 33.45 Est GFR (MDRD) Af Amer 40 L Est GFR (MDRD) Non-Af 33 L BUN/Creatinine Ratio 31.5 H Glucose 328 H Hemoglobin A1c Calcium 8.1 L Magnesium Troponin I Ur Random Sodium Urine Creatinine Random Vancomycin POC Glucose 296 H 07/27/18 05:45 WBC RBC Hgb Hct MCV MCH MCHC RDW RDW Differential Plt Count Neut % (Auto) Absolute Neuts (auto) Total Counted Diff Path Review Eos Smear Total Cells PT INR APTT 72.8 H Specimen Type Sample Site pH Bicarbonate Actual POC Total CO2 Base Excess O2 Saturation O2 % ABG pCO2 ABG pO2 Mir Test Respiration Rate O2 Delivery Device Minute Volume Vent Mode Tidal Volume POC PEEP Blood Gas Notified Whom Blood Gas Notified Time Sodium Potassium Chloride Carbon Dioxide Anion Gap BUN Creatinine Estim Creat Clear Calc Est GFR (MDRD) Af Amer Est GFR (MDRD) Non-Af BUN/Creatinine Ratio Glucose Hemoglobin A1c Calcium Magnesium Troponin I Ur Random Sodium Urine Creatinine Random Vancomycin POC Glucose Microbiology 07/21/18 11:55 Blood Culture (Wb) - Right Hand Blood Culture - Final No growth in 5 days. 07/21/18 11:45 Blood Culture (Wb) - Anticubital Right Blood Culture - Final No growth in 5 days. 07/24/18 10:10 Sputum, Tracheal Aspirate Gram Stain - Final 07/24/18 10:10 Sputum, Tracheal Aspirate Respiratory Culture - Final Presumptive C albicans Clinical Impression(s) from Imaging Studies KUB X-Ray 07/20/18 18:41 IMPRESSION: No evidence of obstruction or perforation. at 2003 Reported and signed by: Salinas Noriega MD Electronically Signed: Salinas Noriega, at 20:02 EST Tel , Service support , Chest X-Ray 07/20/18 19:30 IMPRESSION: No radiographic evidence of acute cardiopulmonary disease. at 2003 Reported and signed by: Salinas Noriega MD Electronically Signed: Salinas Noriega, at 20:02 EST Tel , Service support , Abdomen X-Ray 07/21/18 11:07 IMPRESSION: Diffuse distention of bowel most likely ileus. Distal colonic obstruction not likely but possible. at 0143 Reported and signed by: Salinas Noriega MD Electronically Signed: Salinas Noriega, at 1:42 EST Tel , Service support , Chest X-Ray 07/22/18 09:37 IMPRESSION: Findings concerning for multifocal pneumonia in the appropriate clinical setting with underlying alveolar edema not completely excluded. Recommend follow-up imaging in 4-6 weeks after appropriate treatment. Electronically Signed: Pacheco Galo DO at 9:56 EST , Service support , Chest CTA 07/22/18 17:51 IMPRESSION: No pulmonary embolus. Multifocal bilateral airspace disease in the lungs similar to the most recent chest radiograph but increased compared to 07/20/18 compatible with multifocal pneumonia versus a noninfectious inflammatory pneumonitis. Small, 4.0 cm, ascending thoracic aortic aneurysm with no hemorrhage or dissection. Individualized dose optimization techniques were used for this CT. at 1927 Reported and signed by: Salinas Noriega MD Electronically Signed: Salinas Noriega, at 19:26 EST Tel , Service support , Chest X-Ray 07/24/18 08:42 IMPRESSION: Progressive bilateral airspace disease. The tip of the endotracheal tube is at 4.1 cm proximal to the sunshine. The tip of the orogastric tube is in the body of the stomach. Electronically Signed: Shar Castillo, at 14:18 EST , Service support , Chest X-Ray 07/25/18 08:20 IMPRESSION: Since prior study, there has been improved aeration of both lungs although residual bilateral airspace disease is seen. Electronically Signed: Shar Castillo, at 9:08 EST , Service support , Medical Necessity - Tobacco Use Smoking Status: Former smoker Tobacco Use: Non-smoker Assessment/Plan All Active Problems (Last Reviewed 07/20/18 @ 21:39 by Joaquín Laughlin DO) Acute bronchitis (Acute) Influenza A (Acute) Constipation (Acute) PAUL (acute kidney injury) (Acute) Atrial flutter (Acute) Paroxysmal atrial fibrillation (Acute) Hyperlipidemia (Acute) RECOMMENDATIONS: 1. Continue current supportive measures with lung protective ventilatory strategy. 2. Wean FiO2 and PEEP to maintain an oxygen saturation at or above 90%. 3. Continue tube feeds as ordered. 4. Continue antibiotics and Tamiflu per infectious diseases recommendations 5. Continue appropriate ICU prophylaxis 6. Continue Atrovent aerosols. 7. Continue amiodarone and heparin per cardiology recommendations. IMPRESSIONS: 1. Acute hypoxemic respiratory failure secondary to influenza A infection and severe community-acquired pneumonia/evolving ARDS The patient has a questionable baseline history of COPD. He was seen in the pulmonary medicine clinic 1 year ago, at which time, pulmonary function studies were ordered. However, the patient never followed up. Although the patient was admitted to the hospital with influenza A and a plain film chest x-ray which was largely unremarkable, follow-up chest imaging subsequently revealed evidence of evolving multifocal pneumonia. The patient has essentially gone on to develop full-blown ARDS. He did require intubation on the morning of July 24. He will be maintained on a lung protective ventilator strategy. In addition, the patient was placed on paralytic therapy in order to improve ventilator synchrony and oxygenation. This will be continued with plans to wean and subsequently when feasible. We will continue to wean FiO2 and PEEP to maintain an oxygen saturation at or above 90%. We will continue scheduled Atrovent and steroids as ordered. 2. New onset atrial flutter with rapid ventricular rate The patient did require bedside cardioversion on July 26. Since that time, he is remained in normal sinus rhythm. We will plan to continue current medical management with amiodarone and heparin per cardiology recommendations. 3. Acute kidney injury Nephrology is currently following. Avoid nephrotoxic agents. Continue to monitor urine output. No current indication for renal replacement therapy. 4. Known history of pulmonary nodules The patient is actually past due for a repeat CT chest due to his previously identified pulmonary nodules in March 2017. 5. Obstructive sleep apnea The patient is currently noncompliant with the use of nocturnal noninvasive positive pressure ventilation. 6. Rheumatoid arthritis/atrial fibrillation status post ablation/coronary artery disease/tobacco dependency currently in remission Complicates care, management, recovery and prognosis. Continue home medications as indicated. Insulin regimen will be increased due to persistent hyperglycemia. TIME: 40 minutes of critical care time, independent of procedures, was spent addressing the patient's acute hypoxemic respiratory failure, influenza A infection, severe community-acquired pneumonia, ARDS, acute kidney injury, new onset atrial flutter with rapid ventricular rate, history of pulmonary nodules, obstructive sleep apnea, review of all data and collaboration with the care team. ([id number]) Code Visit [id number]: [id number] Critical care first hour
[2018-07-27 06:36] LABS: Differential Indicated MANUAL DIFF; POSITIVE COUNT YES; POSITIVE DIFFERENTIAL NO; POSITIVE MORPHOLOGY YES
--- NOTE | 2018-07-27 06:39 | PN_ITS ---
Subjective: The patient was seen and examined at the bedside this morning. Events from the last 24 hours have been reviewed. The patient is currently afebrile, hemodynamically stable and maintaining appropriate oxygen saturations on assist control mode of mechanical ventilation with a PEEP of 10 and FiO2 of 60%. The patient remains heavily sedated with pharmacologic paralysis in place. Creatinine remains stable at 2.13. BIS this morning was noted to be 48. RASS remains at a -5 on Propofol and Fentanyl. He remains in normal sinus rhythm following cardioversion yesterday. He is no longer on Cardizem, but remains on a can and use amiodarone infusion, along with a heparin drip. Objective: The patient's most recent lab work, culture data and imaging studies have all been personally reviewed. Chest imaging studies have all revealed significant multifocal bilateral infiltrates. Surface echocardiogram revealed mild lianna ntric LVH with an ejection fraction of 55% and stage II diastolic dysfunction. Pulmonary artery systolic pressure was estimated to be 26 mmHg. The patient's rapid influenza screen was positive for influenza A. The remainder of his infectious workup, including sputum cultures have been unrevealing to date. General: - - Remains intubated, sedated and mechanically ventilated. HEENT: Atraumatic, PERRLA, Normocephalic Oral: No Gingival or Mucosal Lesions/ Ulcerations, - - Endotracheal and OG tubes remain in place. Neck: Supple, No Nodes, Trachea Midline Lungs: No rhonchi, No wheeze, No rales, Diminished Cardiovascular: Regular rate, Regular Rhythm, Normal S1, Normal S2, No murmurs Abdomen: Bowel Sounds Present, Soft, Non Tender, Obese Extremities: No clubbing, No cyanosis, No edema Skin: No breakdown Musculoskeletal: No Tenderness to Palpation of Joints or Extremities Lymphatic: No Cervical, Supraclavicular, or Inguinal Adenopathy Neurological: - - The patient is heavily sedated and pharmacologically paralyzed. Vital Signs Temp Pulse Resp BP Pulse Ox 37.1 C 57 L 16 98/51 L 93 07/27/18 06:00 07/27/18 06:00 07/27/18 06:00 07/27/18 06:00 07/27/18 06:00 Oxygen Flow Rate (L/min) 15 Oxygen Delivery Method Mechanical Ventilator Weight: 265 lb 10.512 oz Body Mass Index (BMI) 38.6 Intake and Output for Last 24 Hours 07/25/18 07/26/18 07/27/18 23:59 23:59 23:59 Intake Total 6071.6 / 6071.6 3849.7 / 3849.7 1346 / 1346 Output Total 1725 / 1725 1750 / 1750 400 / 400 Balance 4346.6 / 4346.6 2099.7 / 2099.7 946 / 946 Labs (Last 48 Hours) 07/25/18 07/25/18 07/25/18 05:25 05:41 07:50 WBC RBC Hgb Hct MCV MCH MCHC RDW RDW Differential Plt Count Neut % (Auto) Absolute Neuts (auto) Total Counted Diff Path Review Reviewed Eos Smear Total Cells PT INR APTT Specimen Type ART Sample Site R Radial pH 7.35 Bicarbonate Actual 25.3 POC Total CO2 27 Base Excess 0 O2 Saturation 92 L O2 % 100 ABG pCO2 45.6 H ABG pO2 67 L Mir Test NA Respiration Rate 16 O2 Delivery Device Vent Minute Volume 8.00 Vent Mode A-C Tidal Volume 450 POC PEEP 10 Blood Gas Notified Whom ICU MD Blood Gas Notified Time 745 Sodium Potassium Chloride Carbon Dioxide Anion Gap BUN Creatinine Estim Creat Clear Calc Est GFR (MDRD) Af Amer Est GFR (MDRD) Non-Af BUN/Creatinine Ratio Glucose Hemoglobin A1c Calcium Magnesium Troponin I Ur Random Sodium Urine Creatinine Random Vancomycin POC Glucose 461 H* 07/25/18 07/25/18 07/25/18 10:50 11:00 11:50 WBC RBC Hgb Hct MCV MCH MCHC RDW RDW Differential Plt Count Neut % (Auto) Absolute Neuts (auto) Total Counted Diff Path Review Eos Smear Total Cells No Eosinophils Seen PT INR APTT Specimen Type Sample Site pH Bicarbonate Actual POC Total CO2 Base Excess O2 Saturation O2 % ABG pCO2 ABG pO2 Mir Test Respiration Rate O2 Delivery Device Minute Volume Vent Mode Tidal Volume POC PEEP Blood Gas Notified Whom Blood Gas Notified Time Sodium Potassium Chloride Carbon Dioxide Anion Gap BUN Creatinine Estim Creat Clear Calc Est GFR (MDRD) Af Amer Est GFR (MDRD) Non-Af BUN/Creatinine Ratio Glucose Hemoglobin A1c Calcium Magnesium Troponin I Ur Random Sodium Urine Creatinine Random Vancomycin 23.8 H POC Glucose 404 H 07/25/18 07/25/18 07/25/18 11:50 11:50 14:23 WBC RBC Hgb Hct MCV MCH MCHC RDW RDW Differential Plt Count Neut % (Auto) Absolute Neuts (auto) Total Counted Diff Path Review Eos Smear Total Cells PT INR APTT Specimen Type Sample Site pH Bicarbonate Actual POC Total CO2 Base Excess O2 Saturation O2 % ABG pCO2 ABG pO2 Mir Test Respiration Rate O2 Delivery Device Minute Volume Vent Mode Tidal Volume POC PEEP Blood Gas Notified Whom Blood Gas Notified Time Sodium Potassium Chloride Carbon Dioxide Anion Gap BUN Creatinine Estim Creat Clear Calc Est GFR (MDRD) Af Amer Est GFR (MDRD) Non-Af BUN/Creatinine Ratio Glucose Hemoglobin A1c Calcium Magnesium Troponin I Ur Random Sodium 17 Urine Creatinine 125.00 Random Vancomycin POC Glucose 418 H 07/25/18 07/25/18 07/25/18 17:44 20:25 22:22 WBC RBC Hgb Hct MCV MCH MCHC RDW RDW Differential Plt Count Neut % (Auto) Absolute Neuts (auto) Total Counted Diff Path Review Eos Smear Total Cells PT INR APTT Specimen Type Sample Site pH Bicarbonate Actual POC Total CO2 Base Excess O2 Saturation O2 % ABG pCO2 ABG pO2 Mir Test Respiration Rate O2 Delivery Device Minute Volume Vent Mode Tidal Volume POC PEEP Blood Gas Notified Whom Blood Gas Notified Time Sodium Potassium Chloride Carbon Dioxide Anion Gap BUN Creatinine Estim Creat Clear Calc Est GFR (MDRD) Af Amer Est GFR (MDRD) Non-Af BUN/Creatinine Ratio Glucose Hemoglobin A1c 9.2 H Calcium Magnesium Troponin I Ur Random Sodium Urine Creatinine Random Vancomycin POC Glucose 352 H 307 H 07/26/18 07/26/18 07/26/18 01:15 04:40 05:53 WBC RBC Hgb Hct MCV MCH MCHC RDW RDW Differential Plt Count Neut % (Auto) Absolute Neuts (auto) Total Counted Diff Path Review Eos Smear Total Cells PT INR APTT Specimen Type Sample Site pH Bicarbonate Actual POC Total CO2 Base Excess O2 Saturation O2 % ABG pCO2 ABG pO2 Mir Test Respiration Rate O2 Delivery Device Minute Volume Vent Mode Tidal Volume POC PEEP Blood Gas Notified Whom Blood Gas Notified Time Sodium 146 H Potassium 5.0 Chloride 110 H Carbon Dioxide 27.0 Anion Gap 9 BUN 67 H Creatinine 2.16 H Estim Creat Clear Calc 32.99 Est GFR (MDRD) Af Amer 40 L Est GFR (MDRD) Non-Af 33 L BUN/Creatinine Ratio 31.0 H Glucose 271 H Hemoglobin A1c Calcium 7.9 L Magnesium Troponin I Ur Random Sodium Urine Creatinine Random Vancomycin POC Glucose 280 H 234 H 07/26/18 07/26/18 07/26/18 08:55 09:32 09:52 WBC RBC Hgb Hct MCV MCH MCHC RDW RDW Differential Plt Count Neut % (Auto) Absolute Neuts (auto) Total Counted Diff Path Review Eos Smear Total Cells PT INR APTT Specimen Type ART Sample Site R Radial pH 7.24 L Bicarbonate Actual 28.4 H POC Total CO2 30 Base Excess 1 O2 Saturation 92 L O2 % 90 ABG pCO2 65.7 H ABG pO2 78 Mir Test POS Respiration Rate 16 O2 Delivery Device Vent Minute Volume Vent Mode A-C Tidal Volume 450 POC PEEP 12 Blood Gas Notified Whom ICU MD Blood Gas Notified Time 947 Sodium Potassium Chloride Carbon Dioxide Anion Gap BUN Creatinine Estim Creat Clear Calc Est GFR (MDRD) Af Amer Est GFR (MDRD) Non-Af BUN/Creatinine Ratio Glucose Hemoglobin A1c Calcium Magnesium 3.1 H Troponin I < 0.015 Ur Random Sodium Urine Creatinine Random Vancomycin POC Glucose 258 H 07/26/18 07/26/18 07/26/18 10:23 13:58 17:10 WBC RBC Hgb Hct MCV MCH MCHC RDW RDW Differential Plt Count Neut % (Auto) Absolute Neuts (auto) Total Counted Diff Path Review Eos Smear Total Cells PT 13.5 INR 1.1 APTT 26.3 92.7 H* Specimen Type Sample Site pH Bicarbonate Actual POC Total CO2 Base Excess O2 Saturation O2 % ABG pCO2 ABG pO2 Mir Test Respiration Rate O2 Delivery Device Minute Volume Vent Mode Tidal Volume POC PEEP Blood Gas Notified Whom Blood Gas Notified Time Sodium Potassium Chloride Carbon Dioxide Anion Gap BUN Creatinine Estim Creat Clear Calc Est GFR (MDRD) Af Amer Est GFR (MDRD) Non-Af BUN/Creatinine Ratio Glucose Hemoglobin A1c Calcium Magnesium Troponin I Ur Random Sodium Urine Creatinine Random Vancomycin POC Glucose 292 H 07/26/18 07/26/18 07/26/18 17:46 22:30 22:55 WBC RBC Hgb Hct MCV MCH MCHC RDW RDW Differential Plt Count Neut % (Auto) Absolute Neuts (auto) Total Counted Diff Path Review Eos Smear Total Cells PT INR APTT 106.3 H* Specimen Type Sample Site pH Bicarbonate Actual POC Total CO2 Base Excess O2 Saturation O2 % ABG pCO2 ABG pO2 Mir Test Respiration Rate O2 Delivery Device Minute Volume Vent Mode Tidal Volume POC PEEP Blood Gas Notified Whom Blood Gas Notified Time Sodium Potassium Chloride Carbon Dioxide Anion Gap BUN Creatinine Estim Creat Clear Calc Est GFR (MDRD) Af Amer Est GFR (MDRD) Non-Af BUN/Creatinine Ratio Glucose Hemoglobin A1c Calcium Magnesium Troponin I Ur Random Sodium Urine Creatinine Random Vancomycin POC Glucose 327 H 329 H 07/27/18 07/27/18 07/27/18 01:29 05:45 05:45 WBC Pending RBC Pending Hgb Pending Hct Pending MCV Pending MCH Pending MCHC Pending RDW Pending RDW Differential Pending Plt Count Pending Neut % (Auto) Pending Absolute Neuts (auto) Pending Total Counted Pending Diff Path Review Eos Smear Total Cells PT INR APTT Specimen Type Sample Site pH Bicarbonate Actual POC Total CO2 Base Excess O2 Saturation O2 % ABG pCO2 ABG pO2 Mir Test Respiration Rate O2 Delivery Device Minute Volume Vent Mode Tidal Volume POC PEEP Blood Gas Notified Whom Blood Gas Notified Time Sodium 143 Potassium 5.2 H Chloride 108 H Carbon Dioxide 26.0 Anion Gap 9 BUN 67 H Creatinine 2.13 H Estim Creat Clear Calc 33.45 Est GFR (MDRD) Af Amer 40 L Est GFR (MDRD) Non-Af 33 L BUN/Creatinine Ratio 31.5 H Glucose 328 H Hemoglobin A1c Calcium 8.1 L Magnesium Troponin I Ur Random Sodium Urine Creatinine Random Vancomycin POC Glucose 296 H 07/27/18 05:45 WBC RBC Hgb Hct MCV MCH MCHC RDW RDW Differential Plt Count Neut % (Auto) Absolute Neuts (auto) Total Counted Diff Path Review Eos Smear Total Cells PT INR APTT 72.8 H Specimen Type Sample Site pH Bicarbonate Actual POC Total CO2 Base Excess O2 Saturation O2 % ABG pCO2 ABG pO2 Mir Test Respiration Rate O2 Delivery Device Minute Volume Vent Mode Tidal Volume POC PEEP Blood Gas Notified Whom Blood Gas Notified Time Sodium Potassium Chloride Carbon Dioxide Anion Gap BUN Creatinine Estim Creat Clear Calc Est GFR (MDRD) Af Amer Est GFR (MDRD) Non-Af BUN/Creatinine Ratio Glucose Hemoglobin A1c Calcium Magnesium Troponin I Ur Random Sodium Urine Creatinine Random Vancomycin POC Glucose Microbiology 07/21/18 11:55 Blood Culture (Wb) - Right Hand Blood Culture - Final No growth in 5 days. 07/21/18 11:45 Blood Culture (Wb) - Anticubital Right Blood Culture - Final No growth in 5 days. 07/24/18 10:10 Sputum, Tracheal Aspirate Gram Stain - Final 07/24/18 10:10 Sputum, Tracheal Aspirate Respiratory Culture - Final Presumptive C albicans Clinical Impression(s) from Imaging Studies KUB X-Ray 07/20/18 18:41 IMPRESSION: No evidence of obstruction or perforation. at 2003 Reported and signed by: Salinas Noriega MD Electronically Signed: Salinas Noriega, at 20:02 EST Tel , Service support , Chest X-Ray 07/20/18 19:30 IMPRESSION: No radiographic evidence of acute cardiopulmonary disease. at 2003 Reported and signed by: Salinas Noriega MD Electronically Signed: Salinas Noriega, at 20:02 EST Tel , Service support , Abdomen X-Ray 07/21/18 11:07 IMPRESSION: Diffuse distention of bowel most likely ileus. Distal colonic obstruction not likely but possible. at 0143 Reported and signed by: Salinas Noriega MD Electronically Signed: Salinas Noriega, at 1:42 EST Tel , Service support , Chest X-Ray 07/22/18 09:37 IMPRESSION: Findings concerning for multifocal pneumonia in the appropriate clinical setting with underlying alveolar edema not completely excluded. Recommend follow-up imaging in 4-6 weeks after appropriate treatment. Electronically Signed: Pacheco Galo DO at 9:56 EST , Service support , Chest CTA 07/22/18 17:51 IMPRESSION: No pulmonary embolus. Multifocal bilateral airspace disease in the lungs similar to the most recent chest radiograph but increased compared to 07/20/18 compatible with multifocal pneumonia versus a noninfectious inflammatory pneumonitis. Small, 4.0 cm, ascending thoracic aortic aneurysm with no hemorrhage or dissection. Individualized dose optimization techniques were used for this CT. at 1927 Reported and signed by: Salinas Noriega MD Electronically Signed: Salinas Noriega, at 19:26 EST Tel , Service support , Chest X-Ray 07/24/18 08:42 IMPRESSION: Progressive bilateral airspace disease. The tip of the endotracheal tube is at 4.1 cm proximal to the snushine. The tip of the orogastric tube is in the body of the stomach. Electronically Signed: Shar Castillo, at 14:18 EST , Service support , Chest X-Ray 07/25/18 08:20 IMPRESSION: Since prior study, there has been improved aeration of both lungs although residual bilateral airspace disease is seen. Electronically Signed: Shar Castillo, at 9:08 EST , Service support , Medical Necessity - Tobacco Use Smoking Status: Former smoker Tobacco Use: Non-smoker Assessment/Plan All Active Problems (Last Reviewed 07/20/18 @ 21:39 by Joaquín Laughlin DO) Acute bronchitis (Acute) Influenza A (Acute) Constipation (Acute) PAUL (acute kidney injury) (Acute) Atrial flutter (Acute) Paroxysmal atrial fibrillation (Acute) Hyperlipidemia (Acute) RECOMMENDATIONS: 1. Continue current supportive measures with lung protective ventilatory strategy. 2. Wean FiO2 and PEEP to maintain an oxygen saturation at or above 90%. 3. Continue tube feeds as ordered. 4. Continue antibiotics and Tamiflu per infectious diseases recommendations 5. Continue appropriate ICU prophylaxis 6. Continue Atrovent aerosols. 7. Continue amiodarone and heparin per cardiology recommendations. IMPRESSIONS: 1. Acute hypoxemic respiratory failure secondary to influenza A infection and severe community-acquired pneumonia/evolving ARDS The patient has a questionable baseline history of COPD. He was seen in the [facility] 1 year ago, at which time, pulmonary function studies were ordered. However, the patient never followed up. Although the patient was admitted to the hospital with influenza A and a plain film chest x-ray which was largely unremarkable, follow-up chest imaging subsequently revealed evidence of evolving multifocal pneumonia. The patient has essentially gone on to develop f ull-blown ARDS. He did require intubation on the morning of July 24. He will be maintained on a lung protective ventilator strategy. In addition, the patient was placed on paralytic therapy in order to improve ventilator synchrony and oxygenation. This will be continued with plans to wean and subsequently when feasible. We will continue to wean FiO2 and PEEP to maintain an oxygen saturation at or above 90%. We will continue scheduled Atrovent and steroids as ordered. 2. New onset atrial flutter with rapid ventricular rate The patient did require bedside cardioversion on July 26. Since that time, he is remained in normal sinus rhythm. We will plan to continue current medical management with amiodarone and heparin per cardiology recommendations. 3. Acute kidney injury Nephrology is currently following. Avoid nephrotoxic agents. Continue to monitor urine output. No current indication for renal replacement therapy. 4. Known history of pulmonary nodules The patient is actually past due for a repeat CT chest due to his previously identified pulmonary nodules in March 2017. 5. Obstructive sleep apnea The patient is currently noncompliant with the use of nocturnal noninvasive positive pressure ventilation. 6. Rheumatoid arthritis/atrial fibrillation status post ablation/coronary artery disease/tobacco dependency currently in remission Complicates care, management, recovery and prognosis. Continue home medications as indicated. Insulin regimen will be increased due to persistent hyperglycemia. TIME: 40 minutes of critical care time, independent of procedures, was spent addressing the patient's acute hypoxemic respiratory failure, influenza A infection, severe community-acquired pneumonia, ARDS, acute kidney injury, new onset atrial flutter with rapid ventricular rate, history of pulmonary nodules, obstructive sleep apnea, review of all data and collaboration with the care team. ([id number]) Code Visit 9xxxx: [id number] Critical care first hour
[2018-07-27 06:51] LABS: Bedside Glucose 306 mg/dL (70-110)
[2018-07-27 07:07] LABS: Lymphocyte 4 % (19-41); Metamyelocyte 1 % (0-1); Monocyte 5 % (0-10); Neutrophil-Band 1 % (0-5); Neutrophil-Segmented 89 % (47-70); Total Cells Counted 100 (MANUAL DIFF)
[2018-07-27 07:08] LABS: Macrocytosis 1+; Platelet Estimate ADEQUATE (ADEQ); Platelet Morphology LARGE; Polychromasia RARE
[2018-07-27 07:09] LABS: Absolute Lymphocyte Count 0.39 X10^3/ul (0.83-4.51); Absolute Neutrophil Count 8.7 X10^3/uL (2.0-7.7)
[2018-07-27] MEDS: HEPARIN/D5w 25,000 UNITS 25,000 UNITS/250 ML IV.SOLN. 16 UNITS IV (07:48)
[2018-07-27] MEDS: Aspirin 81 MG TAB.CHEW GT (07:52)
[2018-07-27] MEDS: Folic Acid 1 MG Tablet GT (07:52)
--- NOTE | 2018-07-27 07:53 | PN_ITS ---
Patient Problems: Active and Suspected Problems (Last Reviewed 07/20/18 @ 21:39 by Joaquín Laughlin DO) Acute bronchitis (Acute) Influenza A (Acute) Constipation (Acute) PAUL (acute kidney injury) (Acute) Atrial flutter (Acute) Subjective: Patient seen and examined. Remains in normal sinus rhythm. FiO2 improving. No other acute events overnight. Objective: Physical exam: General: Sedated, intubated, on mechanical ventilator HEENT: Atraumatic, PERRLA, EOMI, Normocephalic Oral: Dry Mucosa Neck: Supple, No JVD, Negative Carotid Bruits Lungs: Normal air movement, Diminished Cardiovascular: Regular rate, Normal S1, Normal S2, Irregular Rate, Tachycardic Abdomen: Bowel Sounds Present, Soft, Non-Distended, No Hepato-splenomegaly Extremities: Bilateral trace edema Skin: No rashes, No breakdown Musculoskeletal: No Tenderness to Palpation of Joints or Extremities Lymphatic: No Cervical, Supraclavicular, or Inguinal Adenopathy Neurological: Cranial nerves II-XII grossly intact, Neuro grossly intact Psych/Mental Status: Normal Affect, Appropriate Vitals/I&O's: Vital Signs Temp Pulse Resp BP Pulse Ox 98.8 F 57 L 16 96/52 L 92 07/27/18 06:00 07/27/18 07:22 07/27/18 07:00 07/27/18 07:00 07/27/18 07:00 Oxygen Flow Rate (L/min) 15 Oxygen Delivery Method Mechanical Ventilator Weight: 120.5 kg Body Mass Index (BMI) 38.6 Intake and Output for Last 24 Hours 07/25/18 07/26/18 07/27/18 23:59 23:59 23:59 Intake Total 6071.6 / 6071.6 3849.7 / 3849.7 1346 / 1346 Output Total 1725 / 1725 1750 / 1750 400 / 400 Balance 4346.6 / 4346.6 2099.7 / 2099.7 946 / 946 Microbiology Past 72 Hours 07/21/18 11:55 Blood Culture (Wb) - Right Hand Blood Culture - Final No growth in 5 days. 07/21/18 11:45 Blood Culture (Wb) - Anticubital Right Blood Culture - Final No growth in 5 days. 07/24/18 10:10 Sputum, Tracheal Aspirate Gram Stain - Final 07/24/18 10:10 Sputum, Tracheal Aspirate Respiratory Culture - Final Presumptive C albicans Laboratory Results 07/25/18 11:00: Eos Smear Total Cells No Eosinophils Seen 07/26/18 08:55: Magnesium 3.1 H, Troponin I < 0.015 07/26/18 09:32: POC Glucose 258 H 07/26/18 09:52: Specimen Type ART, Sample Site R Radial, pH 7.24 L, Bicarbonate Actual 28.4 H, POC Total CO2 30, Base Excess 1, O2 Saturation 92 L, O2 % 90, ABG pCO2 65.7 H, ABG pO2 78, Mir Test POS, Respiration Rate 16, O2 Delivery Device Vent, Vent Mode A-C, Tidal Volume 450, POC PEEP 12, Blood Gas Notified Whom ICU , Blood Gas Notified Time 947 07/26/18 10:23: PT 13.5, INR 1.1, APTT 26.3 07/26/18 13:58: POC Glucose 292 H 07/26/18 17:10: APTT 92.7 H* 07/26/18 17:46: POC Glucose 327 H 07/26/18 22:30: POC Glucose 329 H 07/26/18 22:55: APTT 106.3 H* 07/27/18 01:29: POC Glucose 296 H 07/27/18 05:30: POC Glucose 306 H 07/27/18 05:45: WBC 9.7, RBC 3.88 L, Hgb 12.1 L, Hct 38.8 L, MCV 100.0 H, MCH 31.2, MCHC 31.2 L, RDW 13.5, RDW Differential 49.3 H, Plt Count 236, MPV 10.9, Neut % (Auto) Not Reportable, Absolute Neuts (auto) 8.7 H, Absolute Lymphs (auto) 0.39 L, Total Counted 100, Neutrophils % (Manual) 89 H, Band Neutrophils % 1, Lymphocytes % (Manual) 4 L, Monocytes % (Manual) 5, Metamyelocytes % 1, Diff Path Review May foll, Platelet Estimate ADEQUATE, Plt Morphology Comment LARGE, Polychromasia RARE, Macrocytosis 1+ 07/27/18 05:45: Sodium 143, Potassium 5.2 H, Chloride 108 H, Carbon Dioxide 26.0, Anion Gap 9, BUN 67 H, Creatinine 2.13 H, Estim Creat Clear Calc 33.45, Est GFR (MDRD) Af Amer 40 L, Est GFR (MDRD) Non-Af 33 L, BUN/Creatinine Ratio 31.5 H, Glucose 328 H, Calcium 8.1 L 07/27/18 05:45: APTT 72.8 H Current Medications Acetaminophen (Tylenol Liquid) 650 mg GT Q4H PRN PRN PRN Reason: FEVER Aspirin (Aspirin, Baby) 81 mg GT DAILY@0800 [facility] Last Admin: 07/27/18 07:52 Dose: 81 mg Chlorhexidine Gluconate () 15 ml PO BID [facility] Last Admin: 07/26/18 22:33 Dose: 15 ml Chlorhexidine Gluconate () 1 each TOPICAL DAILY [facility] Last Admin: 07/27/18 05:54 Dose: 1 each Famotidine (Pepcid) 20 mg GT BID [facility] Last Admin: 07/26/18 22:33 Dose: 20 mg Folic Acid (Folic Acid) 1 mg GT DAILYCM [facility] Last Admin: 07/27/18 07:52 Dose: 1 mg Heparin Sodium (Porcine) (Heparin Na) 0 unit IV UD PRN; Protocol Sodium Chloride () 250 mls @ 15 mls/hr IV .[id number] PRN PRN Reason: SALINE FLUSH Piperacillin Sod/Tazobactam (Sod 3.375 gm/ Sodium Chloride) 50 mls @ 12.5 mls/hr IV Q12 [facility] Last Admin: 07/26/18 22:34 Dose: 12.5 mls/hr Fentanyl () 100 mls @ 5 mls/hr IV .Q20H [facility] Last Admin: 07/27/18 07:48 Dose: 5 mls/hr Propofol (Diprivan) 1,000 mg in 100 mls @ 6.906 mls/hr CONT INF .Q12H [facility] Last Admin: 07/27/18 06:02 Dose: 6.906 mls/hr Enteral Nutritional Formula (Vital Af 1.2 Rick Liquid) 1,000 mls @ 60 mls/hr GT .[id number] [facility] Last Admin: 07/27/18 00:24 Dose: Not Given Heparin Sodium/Dextrose () 25,000 units in 250 mls @ 16 mls/hr IV .[id number] [facility]; Protocol Last Admin: 07/27/18 07:48 Dose: 16 mls/hr Amiodarone HCl 360 mg/ (Dextrose) 200 mls @ 16.67 mls/hr CONT INF .Q12H1M [facility] Stop: 07/27/18 10:30 Last Admin: 07/27/18 06:32 Dose: 16.67 mls/hr Cisatracurium Besylate 100 mg/ (Sodium Chloride) 250 mls @ 34.8 mls/hr IV .[id number] [facility] Last Admin: 07/27/18 04:18 Dose: 34.8 mls/hr Insulin Glargine (Lantus (Bk)) 65 units SC [facility] Last Admin: 07/27/18 05:54 Dose: 65 units Insulin Human Lispro (Humalog Kwikpen ([facility])) 0 unit SC Q4 [facility]; Protocol Last Admin: 07/27/18 05:55 Dose: 9 u Ipratropium [place] (Atrovent) 0.5 mg INHALATION Q4H.RT [facility] Last Admin: 07/27/18 06:42 Dose: 0.5 mg Magnesium Hydroxide (Milk Of Magnesia) 30 ml GT DAILY PRN PRN PRN Reason: Constipation Methylprednisolone (Solu-Medrol) 40 mg IV Q8 [facility] Last Admin: 07/27/18 05:54 Dose: 40 mg Metoprolol Tartrate (Lopressor (Beta Patricia)) 50 mg PO BID [facility] Last Admin: 07/26/18 22:33 Dose: 50 mg Ondansetron HCl (Zofran) 4 mg IV Q8H PRN PRN PRN Reason: NAUSEA Polyethylene Glycol (Miralax) 17 gm GT BID [facility] Last Admin: 07/26/18 22:20 Dose: 17 gm Pravastatin Sodium (Pravachol) 80 mg PO QHS [facility] Last Admin: 07/26/18 22:32 Dose: 80 mg Senna/Docusate Sodium (Senokot-S, Ankita-Colace) 2 tablet PO BID [facility] Last Admin: 07/26/18 22:32 Dose: 2 tablet Sodium Chloride () 5 - 15 ml IV UD PRN PRN Reason: SALINE FLUSH Last Admin: 07/26/18 14:01 Dose: 10 ml Sodium Chloride () 10 - 40 ml IV UD PRN PRN Reason: MULTILUMEN/HICMAN CATH FLUSH Last Admin: 07/26/18 10:40 Dose: 40 ml Medical Necessity - Tobacco Use Smoking Status: Former smoker Tobacco Use: Non-smoker Assessment/Plan All Active Problems (Last Reviewed 07/20/18 @ 21:39 by Joaquín Laughlin DO) Acute bronchitis (Acute) Influenza A (Acute) Constipation (Acute) PAUL (acute kidney injury) (Acute) Atrial flutter (Acute) Paroxysmal atrial fibrillation (Acute) Hyperlipidemia (Acute) 63-year-old male with multiple comorbidities including nicotine dependence, chronic atrial fibrillation status post ablation, CAD status post PCI admitted with fever, chills, cough shortness of breath ongoing for 6 days. Patient was found to be positive for influenza and his imaging had shown pneumonia. Patient had gotten worse and was transferred to the ICU, intubated, on mechanical ventilator. 1. A. fib/atrial flutter with RVR, status post DC cardioversion, Remains in NSR, on metoprolol only now, and IV heparin drip. 2. Acute hypoxic respiratory failure secondary to multifocal bilateral community-acquired pneumonia/acute influenza bronchitis/?ARDS Oxygen requirements appear to be improving, remains intubated, boss dyer consulted, will continue to follow on recommendations 3. Acute influenza bronchitis, completed Tamiflu, continues to be on IV solumedrol, will continue to monitor. 4. CAP, multifocal, no fevers, blood cultures are negative, ID consulted, on IV Zosyn, ID consulted, will follow up on recommendations 5. PAUL likely multifactorial, secondary to ongoing sepsis, poor p.o. intake, dehydration, Cr is about the same, non-oliguric, nephrology following, will monitor 6. Type 2 DM, BS are uncontrolled, secondary to IV steroids and medications with 5% dextrose and tube feeds, HgBA1c is 9.3, on Lantus 80mg BID as well as accucheks with ISS 7. CAD status post PCI, on aspirin 8. DVT prophylaxis - On Heparin drip Code Visit Inpatient E&M: 55174 Subs Hosp L2
[2018-07-27] MEDS: Famotidine 20 MG Tablet GT ×2 (09:03→21:32)
[2018-07-27] MEDS: Polyethylene Glycol 3350 17 GM PACKET GT ×2 (09:03→21:32)
[2018-07-27] MEDS: Chlorhexidine 15 ML PO ×2 (09:03→21:35)
[2018-07-27] MEDS: Senna/Docusate Sodium 1 Tablet 2 TABLET PO ×2 (09:03→21:32)
--- NOTE | 2018-07-27 09:34 | CASEMGMT ---
SW participated in ICU rounds this morning, pt remains on a ventilator this morning. Pt's present. Support offered to after rounds and SW remains available to family as needed. NIKOLE Matias, TANK HOUSE OPERATOR HELPER
[2018-07-27 09:55] LABS: Bedside Glucose 314 mg/dL (70-110)
[2018-07-27] MEDS: Metoprolol Tartrate 50 MG Tablet PO (10:18)
--- NOTE | 2018-07-27 10:27 | PCM.PN.ID ---
Patient Problems: Active and Suspected Problems (Last Reviewed 07/20/18 @ 21:39 by Joaquín Laughlin DO) Acute bronchitis (Acute) Influenza A (Acute) Constipation (Acute) PAUL (acute kidney injury) (Acute) Atrial flutter (Acute) Subjective: No fever, Fio2 much improved, at bedside. - Physical Exam General: No apparent distress Lungs: Diminished Cardiovascular: Regular rate, Regular Rhythm Abdomen: Soft, Non Tender, Non-Distended Skin: No rashes Vital Signs Temp Pulse Resp BP Pulse Ox 98.5 F 66 16 110/59 L 93 07/27/18 07:55 07/27/18 10:18 07/27/18 07:55 07/27/18 10:18 07/27/18 08:00 Oxygen Flow Rate (L/min) 15 Oxygen Delivery Method Mechanical Ventilator Weight: 120.5 kg Body Mass Index (BMI) 38.6 Intake and Output for Last 24 Hours 07/25/18 07/26/18 07/27/18 23:59 23:59 23:59 Intake Total 6071.6 / 6071.6 3849.7 / 3849.7 1376 / 1376 Output Total 1725 / 1725 1750 / 1750 400 / 400 Balance 4346.6 / 4346.6 2099.7 / 2099.7 976 / 976 Microbiology Past 72 Hours 07/21/18 11:55 Blood Culture - Final Blood Culture (Wb) - Right Hand No growth in 5 days. 07/21/18 11:45 Blood Culture - Final Blood Culture (Wb) - Anticubital Right No growth in 5 days. 07/24/18 10:10 Gram Stain - Final Sputum, Tracheal Aspirate Respiratory Culture - Final Presumptive C albicans Laboratory Tests Past 24 Hrs 07/25/18 07/26/18 07/26/18 11:00 10:23 17:10 WBC RBC Hgb Hct MCV MCH MCHC RDW RDW Differential Plt Count MPV Neut % (Auto) Absolute Neuts (auto) Absolute Lymphs (auto) Total Counted Neutrophils % (Manual) Band Neutrophils % Lymphocytes % (Manual) Monocytes % (Manual) Metamyelocytes % Diff Path Review Platelet Estimate Plt Morphology Comment Polychromasia Macrocytosis Eos Smear Total Cells No Eosinophils Seen PT 13.5 INR 1.1 APTT 26.3 92.7 H* Sodium Potassium Chloride Carbon Dioxide Anion Gap BUN Creatinine Estim Creat Clear Calc Est GFR (MDRD) Af Amer Est GFR (MDRD) Non-Af BUN/Creatinine Ratio Glucose Calcium 07/26/18 07/27/18 07/27/18 22:55 05:45 05:45 WBC 9.7 RBC 3.88 L Hgb 12.1 L Hct 38.8 L MCV 100.0 H MCH 31.2 MCHC 31.2 L RDW 13.5 RDW Differential 49.3 H Plt Count 236 MPV 10.9 Neut % (Auto) Not Reportable Absolute Neuts (auto) 8.7 H Absolute Lymphs (auto) 0.39 L Total Counted 100 Neutrophils % (Manual) 89 H Band Neutrophils % 1 Lymphocytes % (Manual) 4 L Monocytes % (Manual) 5 Metamyelocytes % 1 Diff Path Review May foll Platelet Estimate ADEQUATE Plt Morphology Comment LARGE Polychromasia RARE Macrocytosis 1+ Eos Smear Total Cells PT INR APTT 106.3 H* Sodium 143 Potassium 5.2 H Chloride 108 H Carbon Dioxide 26.0 Anion Gap 9 BUN 67 H Creatinine 2.13 H Estim Creat Clear Calc 33.45 Est GFR (MDRD) Af Amer 40 L Est GFR (MDRD) Non-Af 33 L BUN/Creatinine Ratio 31.5 H Glucose 328 H Calcium 8.1 L 07/27/18 05:45 WBC RBC Hgb Hct MCV MCH MCHC RDW RDW Differential Plt Count MPV Neut % (Auto) Absolute Neuts (auto) Absolute Lymphs (auto) Total Counted Neutrophils % (Manual) Band Neutrophils % Lymphocytes % (Manual) Monocytes % (Manual) Metamyelocytes % Diff Path Review Platelet Estimate Plt Morphology Comment Polychromasia Macrocytosis Eos Smear Total Cells PT INR APTT 72.8 H Sodium Potassium Chloride Carbon Dioxide Anion Gap BUN Creatinine Estim Creat Clear Calc Est GFR (MDRD) Af Amer Est GFR (MDRD) Non-Af BUN/Creatinine Ratio Glucose Calcium POC Glucose 07/27/18 07/27/18 07/27/18 09:35 05:30 01:29 POC Glucose 314 H 306 H 296 H 07/26/18 07/26/18 07/26/18 22:30 17:46 13:58 POC Glucose 329 H 327 H 292 H Medical Necessity - Tobacco Use Smoking Status: Former smoker Tobacco Use: Non-smoker Route of nutrition/ use of supplements: [] Nutritional Intake: [] IV Site: [] Qiu Catheter: [] - Assessment/Plan Antibiotics: [] Assessment/Plan: [] Active and Suspected Problems (Last Reviewed 07/20/18 @ 21:39 by Joaquín Laughlin DO) Acute bronchitis (Acute) Influenza A (Acute) Constipation (Acute) Acute hypoxic resp failure with ARDS and flu A - now with PAUL. Completed tamiflu 07/26. On zosyn. Sputum gram stain 07/24 with no GPC seen. MRSA screening pcr was neg. Much improved FiO2 this AM. Cr stable. Plan on stopping zosyn in next 1-2 days if he continues to improve. Will follow, d/w Dr. Ponce.
[2018-07-27 11:54] LABS: Partial Thromboplast Time 86.5 Seconds (24.1-36.2)
[2018-07-27] MEDS: 0.9% NaCl Peripheral Flush Adult/Peds IV ×2 (13:27→17:45)
[2018-07-27 13:36] LABS: Bedside Glucose 303 mg/dL (70-110)
[2018-07-27 13:42] LABS: Pathologist Review Reviewed
--- NOTE | 2018-07-27 14:40 | CHAPLAIN ---
Type of Pastoral Visit _x__ Initial Visit ___ Follow-up Visit ___ On-call Visit ___ General Patient Visit ___ Spiritual Assessment ___ Family Conference ___ Bereavement ___ Rapid Response ___ Code Blue ___ Other (describe below) Pastoral Care Referral From ___ Patient ___ Family _x__ Nurse ___ Physician ___ Stationary Fireman ___ Site Physician ___ Other (describe below) Sacrament/Intervention _x__ Active listening ___ Anointing ___ Latter Day ___ Bereavement ___ Communion _x__ Jenna exploration ___ _x__ Life review _x__ Prayer ___ Reconciliation ___ Sacrament of Sick _x__ Supportive presence ___ Wedding ___ Other (describe below) Pastoral Comments patient is intubated but offered presence and support to and son who were in the room; spouse talks about her , their long marriage, restorationism background, family, and how this has all been a dramatic change in health and life situation; spouse requests ongoing prayer and spiritual support; spouse says that she has a rastafarian connection and good family support; spouse says pt does not participate in spiritual activities but is supportive of her jenna; spouse welcomes further contacts with this air moving technician
--- NOTE | 2018-07-27 14:45 | NURSING ---
Pt w/ spontaneous movement and eye opening at this time, however not following commands. + gag reflex as evidenced by strong cough. Will continue to monitor.
--- NOTE | 2018-07-27 15:09 | PN.RENAL_ITS ---
Patient Problems: Active and Suspected Problems (Last Reviewed 07/20/18 @ 21:39 by Joaquín Laughlin DO) Acute bronchitis (Acute) Influenza A (Acute) Constipation (Acute) PAUL (acute kidney injury) (Acute) Atrial flutter (Acute) Subjective: no new events FiO2 is somewhat better hemodynamically stable - Physical Exam HEENT: Atraumatic, PERRLA, EOMI, Normocephalic Neck: Supple, No JVD, Negative Carotid Bruits Lungs: Clear to auscultation, Normal air movement Cardiovascular: Regular rate, No murmurs Abdomen: Bowel Sounds Present, Soft, Non Tender Extremities: No edema, Capillary Refill Less than 3 Seconds Skin: No rashes, No breakdown Musculoskeletal: No Tenderness to Palpation of Joints or Extremities Vital Signs Temp Pulse Resp BP Pulse Ox 98.5 F 56 L 16 102/49 L 92 07/27/18 12:25 07/27/18 14:04 07/27/18 14:04 07/27/18 14:00 07/27/18 14:01 Oxygen Flow Rate (L/min) 15 Oxygen Delivery Method Mechanical Ventilator Weight: 120.5 kg Body Mass Index (BMI) 38.6 Intake and Output for Last 24 Hours 07/25/18 07/26/18 07/27/18 23:59 23:59 23:59 Intake Total 6071.6 / 6071.6 3849.7 / 3849.7 2555.6 / 2555.6 Output Total 1725 / 1725 1750 / 1750 850 / 850 Balance 4346.6 / 4346.6 2099.7 / 2099.7 1705.6 / 1705.6 Microbiology Past 72 Hours 07/21/18 11:55 Blood Culture - Final Blood Culture (Wb) - Right Hand No growth in 5 days. 07/21/18 11:45 Blood Culture - Final Blood Culture (Wb) - Anticubital Right No growth in 5 days. 07/24/18 10:10 Gram Stain - Final Sputum, Tracheal Aspirate Respiratory Culture - Final Presumptive C albicans Laboratory Tests Past 24 Hrs 07/25/18 07/26/18 07/26/18 11:00 17:10 22:55 WBC RBC Hgb Hct MCV MCH MCHC RDW RDW Differential Plt Count MPV Neut % (Auto) Absolute Neuts (auto) Absolute Lymphs (auto) Total Counted Neutrophils % (Manual) Band Neutrophils % Lymphocytes % (Manual) Monocytes % (Manual) Metamyelocytes % Diff Path Review Platelet Estimate Plt Morphology Comment Polychromasia Macrocytosis Eos Smear Total Cells No Eosinophils Seen APTT 92.7 H* 106.3 H* Sodium Potassium Chloride Carbon Dioxide Anion Gap BUN Creatinine Estim Creat Clear Calc Est GFR (MDRD) Af Amer Est GFR (MDRD) Non-Af BUN/Creatinine Ratio Glucose Calcium 07/27/18 07/27/18 07/27/18 05:45 05:45 05:45 WBC 9.7 RBC 3.88 L Hgb 12.1 L Hct 38.8 L MCV 100.0 H MCH 31.2 MCHC 31.2 L RDW 13.5 RDW Differential 49.3 H Plt Count 236 MPV 10.9 Neut % (Auto) Not Reportable Absolute Neuts (auto) 8.7 H Absolute Lymphs (auto) 0.39 L Total Counted 100 Neutrophils % (Manual) 89 H Band Neutrophils % 1 Lymphocytes % (Manual) 4 L Monocytes % (Manual) 5 Metamyelocytes % 1 [address] Review Reviewed Platelet Estimate ADEQUATE Plt Morphology Comment LARGE Polychromasia RARE Macrocytosis 1+ Eos Smear Total Cells APTT 72.8 H Sodium 143 Potassium 5.2 H Chloride 108 H Carbon Dioxide 26.0 Anion Gap 9 BUN 67 H Creatinine 2.13 H Estim Creat Clear Calc 33.45 Est GFR (MDRD) Af Amer 40 L Est GFR (MDRD) Non-Af 33 L BUN/Creatinine Ratio 31.5 H Glucose 328 H Calcium 8.1 L 07/27/18 11:35 WBC RBC Hgb Hct MCV MCH MCHC RDW RDW Differential Plt Count MPV Neut % (Auto) Absolute Neuts (auto) Absolute Lymphs (auto) Total Counted Neutrophils % (Manual) Band Neutrophils % Lymphocytes % (Manual) Monocytes % (Manual) Metamyelocytes % Diff Path Review Platelet Estimate Plt Morphology Comment Polychromasia Macrocytosis Eos Smear Total Cells APTT 86.5 H Sodium Potassium Chloride Carbon Dioxide Anion Gap BUN Creatinine Estim Creat Clear Calc Est GFR (MDRD) Af Amer Est GFR (MDRD) Non-Af BUN/Creatinine Ratio Glucose Calcium POC Glucose 07/27/18 07/27/18 07/27/18 13:25 09:35 05:30 POC Glucose 303 H 314 H 306 H 07/27/18 07/26/18 07/26/18 01:29 22:30 17:46 POC Glucose 296 H 329 H 327 H Medical Necessity - Tobacco Use Smoking Status: Former smoker Tobacco Use: Non-smoker Assessment/Plan All Active Problems (Last Reviewed 07/20/18 @ 21:39 by Joaquín Laughlin DO) Acute bronchitis (Acute) Influenza A (Acute) Constipation (Acute) PAUL (acute kidney injury) (Acute) Atrial flutter (Acute) Paroxysmal atrial fibrillation (Acute) Hyperlipidemia (Acute) PAUL. baseline creatinine is normal. UA reviewed. Qiu in hence chances of obstruction are low. PAUL is likely ATN due to severe sepsis, ARDS. Cr today is about the same as yesterday. urine output is good ? peak creatinine hold off LICENSED PHYSICAL THERAPIST ASSISTANT ok for lasix as needed d/w at bedside
--- NOTE | 2018-07-27 17:09 | PCM.PN.CARD ---
Subjectve: The patient remain sedated and mechanically intubated/ventilated. He appears to be remaining in sinus rhythm at this time. Objective: Vital Signs Temp Pulse Resp BP Pulse Ox 98.5 F 55 L 16 109/53 L 94 07/27/18 12:25 07/27/18 16:47 07/27/18 16:47 07/27/18 16:00 07/27/18 16:47 Oxygen Flow Rate (L/min) 15 Oxygen Delivery Method Mechanical Ventilator Weight: 265 lb 10.512 oz Body Mass Index (BMI) 38.6 Intake and Output for Last 24 Hours 07/25/18 07/26/18 07/27/18 23:59 23:59 23:59 Intake Total 6071.6 / 6071.6 3849.7 / 3849.7 2555.6 / 2555.6 Output Total 1725 / 1725 1750 / 1750 850 / 850 Balance 4346.6 / 4346.6 2099.7 / 2099.7 1705.6 / 1705.6 Lungs: - - Scattered upper airway sounds Cardiovascular: Regular Rhythm, Normal S1, Normal S2 Abdomen: Bowel Sounds Present, Soft Extremities: Trace RLE Edema, Trace LLE Edema 07/26/18 17:10: APTT 92.7 H* 07/26/18 22:55: APTT 106.3 H* 07/27/18 05:45: WBC 9.7, RBC 3.88 L, Hgb 12.1 L, Hct 38.8 L, MCV 100.0 H, MCH 31.2, MCHC 31.2 L, RDW 13.5, RDW Differential 49.3 H, Plt Count 236, MPV 10.9, Neut % (Auto) Not Reportable, Absolute Neuts (auto) 8.7 H, Total Counted 100, Neutrophils % (Manual) 89 H, Band Neutrophils % 1, Lymphocytes % (Manual) 4 L, Monocytes % (Manual) 5, Metamyelocytes % 1 07/27/18 05:45: Sodium 143, Potassium 5.2 H, Chloride 108 H, Carbon Dioxide 26.0, Anion Gap 9, BUN 67 H, Creatinine 2.13 H, Est GFR (MDRD) Af Amer 40 L, Est GFR (MDRD) Non-Af 33 L, BUN/Creatinine Ratio 31.5 H, Glucose 328 H, Calcium 8.1 L 03/07/19 05:45: APTT 72.8 H 07/27/18 11:35: APTT 86.5 H Rhythm:sinus rhythm Medical Necessity - Tobacco Use Smoking Status: Former smoker Tobacco Use: Non-smoker Assessment/Plan 1. Atrial flutter The patient continues in sinus rhythm at this time. He will continue rate control therapy, antiarrhythmic therapy, and anticoagulant therapy. 2. Atrial fibrillation status post EPS/RFA At the moment he is not demonstrated obvious recurrent atrial fibrillation. He will continue evaluation care as noted above. 3. CAD status post RCA PTCA/RACHEL He will need to be monitored for any obvious involvement of his coronary artery system. Thus far his troponin I level was negative. He has remained hemodynamically stable. He has not had no acute changes on his ECG. He will continue medical management as tolerated. 4. Hyperlipidemia He will continue lipid-lowering therapy as tolerated. 5. Hypertension His blood pressure appears to be stable to elevated at this time. He will continue medical adjustment as needed. 6. Influenza A The patient remains on the ventilator at this time. He will continue evaluation care per pulmonology/critical care medicine. 7. Acute renal insufficiency His BUN and creatinine will need to be followed. This may impact his medications, etc. This note was generated using a voice recognition system and there may be incorrect words, spelling or punctuation that were not noted when reviewing the office note prior to saving.
[2018-07-27 18:40] LABS: Bedside Glucose 315 mg/dL (70-110)
[2018-07-27] MEDS: Amiodarone 200 MG Tablet PO (21:32)
[2018-07-27] MEDS: Pravastatin 80 MG Tablet PO (21:32)
[2018-07-27 21:56] LABS: Bedside Glucose 290 mg/dL (70-110)
[2018-07-28] VITALS (44 sets, daily range): BP systolic 103–143; BP diastolic 54–94; PULSE 42–138; RESP 14–22; TEMP 36.3–37.7; O2SAT 50–95
[2018-07-28 00:27] LABS: Partial Thromboplast Time 70.2 Seconds (24.1-36.2)
[2018-07-28] MEDS: Insulin Lispro 100 UNIT/ML INSULN.PEN SC ×3 (01:45→10:37)
[2018-07-28] MEDS: Propofol 10MG/Ml 1,000 MG/100 ML Bottle 6.906 MG CONT INF ×8 (01:47→21:47)
[2018-07-28 01:56] LABS: Bedside Glucose 248 mg/dL (70-110)
[2018-07-28] MEDS: Ipratropium 0.5 MG/2.5 ML SOLUTION INHALATION ×6 (03:20→22:59)
[2018-07-28] MEDS: CHLORHEXIDINE GLUC 2% CLOTH 1 EACH TOWELETTE TOPICAL (03:35)
[2018-07-28] MEDS: 0.9% NaCl Peripheral Flush Adult/Peds IV ×5 (04:23→19:53)
[2018-07-28 04:41] LABS: Hematocrit 37.8 % (40-54); Hemoglobin 12.1 g/dl (13.0-16.5); Mean Corpuscular Hgb 31.1 pg (27.0-32.0); Mean Corpuscular Volume 97.2 fL (80-94); Mean Platelet Vol. 10.5 fl (6.2-12.0); Platelet Count 247 K/mm3 (150-450); RBC Distribution Width CV 13.8 % (11.6-14.6); RBC Distribution Width SD 49.1 fl (35.1-43.9); Red Blood Count 3.89 M/mm3 (4.6-6.2); White Blood Count 9.5 K/mm3 (4.4-11.0)
[2018-07-28 04:45] LABS: Differential Indicated MANUAL DIFF; POSITIVE COUNT YES; POSITIVE DIFFERENTIAL NO; POSITIVE MORPHOLOGY YES; Partial Thromboplast Time 66.6 Seconds (24.1-36.2)
[2018-07-28 04:50] LABS: Anion Gap 7 (5-15); BUN 63 mg/dL (7-18); BUN/Creat Ratio 34.6 RATIO (10-20); Chloride 109 mmol/L (98-107); Creatinine, Serum 1.82 mg/dL (0.70-1.30); EST Glomerular Filtration Rate 40 mL/min (>60); Est Glom Filt Rate - Afr Amer 48 mL/min (>60); Estimated Creatinine Clearance 39.15 ml/min; Glucose 220 mg/dL (74-106); Potassium 4.9 mmol/L (3.5-5.1); Sodium Level 143 mmol/L (136-145)
[2018-07-28 05:09] LABS: Eosinophil 1 % (0-5); Lymphocyte 8 % (19-41); Monocyte 4 % (0-10); Myelocyte 1 (0-0); Neutrophil-Band 2 % (0-5); Neutrophil-Segmented 84 % (47-70); Total Cells Counted 100 (MANUAL DIFF)
[2018-07-28 05:11] LABS: Absolute Lymphocyte Count 0.76 X10^3/ul (0.83-4.51); Absolute Neutrophil Count 8.2 X10^3/uL (2.0-7.7)
[2018-07-28] MEDS: fentaNYL drip 100 ML 5 MCG IV ×3 (05:13→17:00)
[2018-07-28] MEDS: Amiodarone 200 MG Tablet PO ×3 (05:15→21:31)
[2018-07-28 05:36] LABS: Bedside Glucose 188 mg/dL (70-110)
--- NOTE | 2018-07-28 06:29 | RAD_ITS ---
STUDY: X-RAY CHEST REASON FOR EXAM: Male, 63 years old. Shortness of breath/dyspnea. TECHNIQUE: Single AP portable view of the chest. COMPARISON: Comparison is made with prior study dated July 25, 2018. FINDINGS: An endotracheal tube is in situ. The tip is at 3.4 cm proximal to the sunshine. EKG electrodes are seen. Endogastric tube is seen with the tip in the distal portion of the body of the stomach. Since prior study, there has been mild degree of improved aeration of both lungs. Persistent bilateral patchy infiltrates are seen. Normal size heart. Normal mediastinum and noelle. Normal visualized pulmonary arteries. There is atherosclerotic calcification of the aortic arch with tortuosity. There are diffuse degenerative changes of the visualized thoracic spine. Normal visualized ribs, clavicles, and shoulders. There is no demonstrated abnormality of the visualized soft tissue structures of the upper abdomen. RAD/Chest 1 View (Portable) IMPRESSION: Since prior study, there has been mild improvement of the aeration of both lungs. Residual bilateral patchy infiltrates are seen. Electronically Signed: Shar Castillo, at 8:22 EST , Service support ,
--- NOTE | 2018-07-28 06:39 | PCM.PN.INT ---
Subjective: The patient was seen and examined at the bedside this morning. Events from the last 24 hours have been reviewed. The patient is currently afebrile, hemodynamically stable and maintaining appropriate oxygen saturations on 60% FiO2. The patient's respiratory status remains exceedingly tenuous. Although his FiO2 was able to be weaned down as low as 50% overnight, with any type of movement or stimulation, the patient desaturates quickly. The patient's continuous amiodarone infusion was discontinued. His Lopressor is currently on hold due to periods of bradycardia. The patient's creatinine is improving. He has still not yet had a bowel movement. His tube feeds are currently on hold. The patient is currently documented to be overall net +12.2 L for the admission. Objective: The patient's most recent lab work, culture data and imaging studies have all been personally reviewed. Chest imaging studies have all revealed significant multifocal bilateral infiltrates. Surface echocardiogram revealed mild concentric LVH with an ejection fraction of 55% and stage II diastolic dysfunction. Pulmonary artery systolic pressure was estimated to be 26 mmHg. The patient's rapid influenza screen was positive for influenza A. The remainder of his infectious workup, including sputum cultures have been unrevealing to date. General: - - Remains intubated, heavily sedated and mechanically ventilated. HEENT: Atraumatic, PERRLA, Normocephalic Oral: No Gingival or Mucosal Lesions/ Ulcerations, - - Endotracheal tube and OG tube remain in place Neck: Supple, No Nodes, Trachea Midline Lungs: No rhonchi, No wheeze, No rales, Diminished Cardiovascular: Normal S1, Normal S2, No murmurs, Bradycardic Abdomen: Soft, Non Tender, Hypoactive Bowel Sounds, Obese Extremities: No clubbing, No cyanosis, Edema - Trace LE Skin: No breakdown Musculoskeletal: No Tenderness to Palpation of Joints or Extremities Lymphatic: No Cervical, Supraclavicular, or Inguinal Adenopathy Neurological: - - Currently sedated with a RASS of -4 Vital Signs Temp Pulse Resp BP Pulse Ox 36.8 C 53 L 16 109/58 L 95 07/28/18 04:00 07/28/18 06:00 07/28/18 06:00 07/28/18 06:00 07/28/18 06:00 Oxygen Flow Rate (L/min) 15 Oxygen Delivery Method Mechanical Ventilator Weight: 261 lb 0.437 oz Body Mass Index (BMI) 38.6 Intake and Output for Last 24 Hours 07/26/18 07/27/18 07/28/18 23:59 23:59 23:59 Intake Total 3849.7 / 3849.7 3951.8 / 3951.8 544 / 544 Output Total 1750 / 1750 2049 / 2049 775 / 775 Balance 2099.7 / 2099.7 1901.8 / 1901.8 -231 / -231 Labs (Last 48 Hours) 07/25/18 07/26/18 07/26/18 11:00 08:55 09:32 WBC RBC Hgb Hct MCV MCH MCHC RDW RDW Differential Plt Count MPV Neut % (Auto) Absolute Neuts (auto) Absolute Lymphs (auto) Total Counted Neutrophils % (Manual) Band Neutrophils % Lymphocytes % (Manual) Monocytes % (Manual) Eosinophils % (Manual) Metamyelocytes % Myelocytes % Diff Path Review Platelet Estimate Plt Morphology Comment Polychromasia Macrocytosis Eos Smear Total Cells No Eosinophils Seen PT INR APTT Specimen Type Sample Site pH Bicarbonate Actual POC Total CO2 Base Excess O2 Saturation O2 % ABG pCO2 ABG pO2 Mir Test Respiration Rate O2 Delivery Device Vent Mode Tidal Volume POC PEEP Blood Gas Notified Whom Blood Gas Notified Time Sodium Potassium Chloride Carbon Dioxide Anion Gap BUN Creatinine Estim Creat Clear Calc Est GFR (MDRD) Af Amer Est GFR (MDRD) Non-Af BUN/Creatinine Ratio Glucose Calcium Magnesium 3.1 H Troponin I < 0.015 POC Glucose 258 H 07/26/18 07/26/18 07/26/18 09:52 10:23 13:58 WBC RBC Hgb Hct MCV MCH MCHC RDW RDW Differential Plt Count MPV Neut % (Auto) Absolute Neuts (auto) Absolute Lymphs (auto) Total Counted Neutrophils % (Manual) Band Neutrophils % Lymphocytes % (Manual) Monocytes % (Manual) Eosinophils % (Manual) Metamyelocytes % Myelocytes % Diff Path Review Platelet Estimate Plt Morphology Comment Polychromasia Macrocytosis Eos Smear Total Cells PT 13.5 INR 1.1 APTT 26.3 Specimen Type ART Sample Site R Radial pH 7.24 L Bicarbonate Actual 28.4 H POC Total CO2 30 Base Excess 1 O2 Saturation 92 L O2 % 90 ABG pCO2 65.7 H ABG pO2 78 Mir Test POS Respiration Rate 16 O2 Delivery Device Vent Vent Mode A-C Tidal Volume 450 POC PEEP 12 Blood Gas Notified Whom ICU MD Blood Gas Notified Time 947 Sodium Potassium Chloride Carbon Dioxide Anion Gap BUN Creatinine Estim Creat Clear Calc Est GFR (MDRD) Af Amer Est GFR (MDRD) Non-Af BUN/Creatinine Ratio Glucose Calcium Magnesium Troponin I POC Glucose 292 H 07/26/18 07/26/18 07/26/18 17:10 17:46 22:30 WBC RBC Hgb Hct MCV MCH MCHC RDW RDW Differential Plt Count MPV Neut % (Auto) Absolute Neuts (auto) Absolute Lymphs (auto) Total Counted Neutrophils % (Manual) Band Neutrophils % Lymphocytes % (Manual) Monocytes % (Manual) Eosinophils % (Manual) Metamyelocytes % Myelocytes % Diff Path Review Platelet Estimate Plt Morphology Comment Polychromasia Macrocytosis Eos Smear Total Cells PT INR APTT 92.7 H* Specimen Type Sample Site pH Bicarbonate Actual POC Total CO2 Base Excess O2 Saturation O2 % ABG pCO2 ABG pO2 Mir Test Respiration Rate O2 Delivery Device Vent Mode Tidal Volume POC PEEP Blood Gas Notified Whom Blood Gas Notified Time Sodium Potassium Chloride Carbon Dioxide Anion Gap BUN Creatinine Estim Creat Clear Calc Est GFR (MDRD) Af Amer Est GFR (MDRD) Non-Af BUN/Creatinine Ratio Glucose Calcium Magnesium Troponin I POC Glucose 327 H 329 H 07/26/18 07/27/18 07/27/18 22:55 01:29 05:30 WBC RBC Hgb Hct MCV MCH MCHC RDW RDW Differential Plt Count MPV Neut % (Auto) Absolute Neuts (auto) Absolute Lymphs (auto) Total Counted Neutrophils % (Manual) Band Neutrophils % Lymphocytes % (Manual) Monocytes % (Manual) Eosinophils % (Manual) Metamyelocytes % Myelocytes % Diff Path Review Platelet Estimate Plt Morphology Comment Polychromasia Macrocytosis Eos Smear Total Cells PT INR APTT 106.3 H* Specimen Type Sample Site pH Bicarbonate Actual POC Total CO2 Base Excess O2 Saturation O2 % ABG pCO2 ABG pO2 Mir Test Respiration Rate O2 Delivery Device Vent Mode Tidal Volume POC PEEP Blood Gas Notified Whom Blood Gas Notified Time Sodium Potassium Chloride Carbon Dioxide Anion Gap BUN Creatinine Estim Creat Clear Calc Est GFR (MDRD) Af Amer Est GFR (MDRD) Non-Af BUN/Creatinine Ratio Glucose Calcium Magnesium Troponin I POC Glucose 296 H 306 H 07/27/18 07/27/18 07/27/18 05:45 05:45 05:45 WBC 9.7 RBC 3.88 L Hgb 12.1 L Hct 38.8 L MCV 100.0 H MCH 31.2 MCHC 31.2 L RDW 13.5 RDW Differential 49.3 H Plt Count 236 MPV 10.9 Neut % (Auto) Not Reportable Absolute Neuts (auto) 8.7 H Absolute Lymphs (auto) 0.39 L Total Counted 100 Neutrophils % (Manual) 89 H Band Neutrophils % 1 Lymphocytes % (Manual) 4 L Monocytes % (Manual) 5 Eosinophils % (Manual) Metamyelocytes % 1 Myelocytes % Diff Path Review Reviewed Platelet Estimate ADEQUATE Plt Morphology Comment LARGE Polychromasia RARE Macrocytosis 1+ Eos Smear Total Cells PT INR APTT 72.8 H Specimen Type Sample Site pH Bicarbonate Actual POC Total CO2 Base Excess O2 Saturation O2 % ABG pCO2 ABG pO2 Mir Test Respiration Rate O2 Delivery Device Vent Mode Tidal Volume POC PEEP Blood Gas Notified Whom Blood Gas Notified Time Sodium 143 Potassium 5.2 H Chloride 108 H Carbon Dioxide 26.0 Anion Gap 9 BUN 67 H Creatinine 2.13 H Estim Creat Clear Calc 33.45 Est GFR (MDRD) Af Amer 40 L Est GFR (MDRD) Non-Af 33 L BUN/Creatinine Ratio 31.5 H Glucose 328 H Calcium 8.1 L Magnesium Troponin I POC Glucose 07/27/18 07/27/18 07/27/18 09:35 11:35 13:25 WBC RBC Hgb Hct MCV MCH MCHC RDW RDW Differential Plt Count MPV Neut % (Auto) Absolute Neuts (auto) Absolute Lymphs (auto) Total Counted Neutrophils % (Manual) Band Neutrophils % Lymphocytes % (Manual) Monocytes % (Manual) Eosinophils % (Manual) Metamyelocytes % Myelocytes % Diff Path Review Platelet Estimate Plt Morphology Comment Polychromasia Macrocytosis Eos Smear Total Cells PT INR APTT 86.5 H Specimen Type Sample Site pH Bicarbonate Actual POC Total CO2 Base Excess O2 Saturation O2 % ABG pCO2 ABG pO2 Mir Test Respiration Rate O2 Delivery Device Vent Mode Tidal Volume POC PEEP Blood Gas Notified Whom Blood Gas Notified Time Sodium Potassium Chloride Carbon Dioxide Anion Gap BUN Creatinine Estim Creat Clear Calc Est GFR (MDRD) Af Amer Est GFR (MDRD) Non-Af BUN/Creatinine Ratio Glucose Calcium Magnesium Troponin I POC Glucose 314 H 303 H 07/27/18 07/27/18 07/27/18 17:42 18:30 21:45 WBC RBC Hgb Hct MCV MCH MCHC RDW RDW Differential Plt Count MPV Neut % (Auto) Absolute Neuts (auto) Absolute Lymphs (auto) Total Counted Neutrophils % (Manual) Band Neutrophils % Lymphocytes % (Manual) Monocytes % (Manual) Eosinophils % (Manual) Metamyelocytes % Myelocytes % Diff Path Review Platelet Estimate Plt Morphology Comment Polychromasia Macrocytosis Eos Smear Total Cells PT INR APTT 76.0 H Specimen Type Sample Site pH Bicarbonate Actual POC Total CO2 Base Excess O2 Saturation O2 % ABG pCO2 ABG pO2 Mir Test Respiration Rate O2 Delivery Device Vent Mode Tidal Volume POC PEEP Blood Gas Notified Whom Blood Gas Notified Time Sodium Potassium Chloride Carbon Dioxide Anion Gap BUN Creatinine Estim Creat Clear Calc Est GFR (MDRD) Af Amer Est GFR (MDRD) Non-Af BUN/Creatinine Ratio Glucose Calcium Magnesium Troponin I POC Glucose 315 H 290 H 07/28/18 07/28/18 07/28/18 00:05 01:44 04:30 WBC 9.5 RBC 3.89 L Hgb 12.1 L Hct 37.8 L MCV 97.2 H MCH 31.1 MCHC 32.0 RDW 13.8 RDW Differential 49.1 H Plt Count 247 MPV 10.5 Neut % (Auto) Not Reportable Absolute Neuts (auto) 8.2 H Absolute Lymphs (auto) 0.76 L Total Counted 100 Neutrophils % (Manual) 84 H Band Neutrophils % 2 Lymphocytes % (Manual) 8 L Monocytes % (Manual) 4 Eosinophils % (Manual) 1 Metamyelocytes % Myelocytes % 1 H Diff Path Review May foll Platelet Estimate Plt Morphology Comment Polychromasia Macrocytosis Eos Smear Total Cells PT INR APTT 70.2 H Specimen Type Sample Site pH Bicarbonate Actual POC Total CO2 Base Excess O2 Saturation O2 % ABG pCO2 ABG pO2 Mir Test Respiration Rate O2 Delivery Device Vent Mode Tidal Volume POC PEEP Blood Gas Notified Whom Blood Gas Notified Time Sodium Potassium Chloride Carbon Dioxide Anion Gap BUN Creatinine Estim Creat Clear Calc Est GFR (MDRD) Af Amer Est GFR (MDRD) Non-Af BUN/Creatinine Ratio Glucose Calcium Magnesium Troponin I POC Glucose 248 H 07/28/18 07/28/18 07/28/18 04:30 04:30 05:25 WBC RBC Hgb Hct MCV MCH MCHC RDW RDW Differential Plt Count MPV Neut % (Auto) Absolute Neuts (auto) Absolute Lymphs (auto) Total Counted Neutrophils % (Manual) Band Neutrophils % Lymphocytes % (Manual) Monocytes % (Manual) Eosinophils % (Manual) Metamyelocytes % Myelocytes % Diff Path Review Platelet Estimate Plt Morphology Comment Polychromasia Macrocytosis Eos Smear Total Cells PT INR APTT 66.6 H Specimen Type Sample Site pH Bicarbonate Actual POC Total CO2 Base Excess O2 Saturation O2 % ABG pCO2 ABG pO2 Mir Test Respiration Rate O2 Delivery Device Vent Mode Tidal Volume POC PEEP Blood Gas Notified Whom Blood Gas Notified Time Sodium 143 Potassium 4.9 Chloride 109 H Carbon Dioxide 27.0 Anion Gap 7 BUN 63 H Creatinine 1.82 H Estim Creat Clear Calc 39.15 Est GFR (MDRD) Af Amer 48 L Est GFR (MDRD) Non-Af 40 L BUN/Creatinine Ratio 34.6 H Glucose 220 H Calcium 8.0 L Magnesium Troponin I POC Glucose 188 H Microbiology 07/21/18 11:55 Blood Culture (Wb) - Right Hand Blood Culture - Final No growth in 5 days. 07/21/18 11:45 Blood Culture (Wb) - Anticubital Right Blood Culture - Final No growth in 5 days. 07/24/18 10:10 Sputum, Tracheal Aspirate Gram Stain - Final 07/24/18 10:10 Sputum, Tracheal Aspirate Respiratory Culture - Final Presumptive C albicans Clinical Impression(s) from Imaging Studies KUB X-Ray 07/20/18 18:41 IMPRESSION: No evidence of obstruction or perforation. at 2002 Reported and signed by: Salinas Noriega MD Electronically Signed: Salinas Noriega, at 20:02 EST Tel , Service support , Chest X-Ray 07/20/18 19:30 IMPRESSION: No radiographic evidence of acute cardiopulmonary disease. at 2002 Reported and signed by: Salinas Noriega MD Electronically Signed: Salinas Noriega, at 20:02 EST Tel , Service support , Abdomen X-Ray 07/21/18 11:07 IMPRESSION: Diffuse distention of bowel most likely ileus. Distal colonic obstruction not likely but possible. at 0143 Reported and signed by: Salinas Noriega MD Electronically Signed: Salinas Noriega, at 1:42 EST Tel , Service support , Chest X-Ray 07/22/18 09:37 IMPRESSION: Findings concerning for multifocal pneumonia in the appropriate clinical setting with underlying alveolar edema not completely excluded. Recommend follow-up imaging in 4-6 weeks after appropriate treatment. Electronically Signed: Pacheco Glao DO at 9:56 EST , Service support , Chest CTA 07/22/18 17:51 IMPRESSION: No pulmonary embolus. Multifocal bilateral airspace disease in the lungs similar to the most recent chest radiograph but increased compared to 07/20/18 compatible with multifocal pneumonia versus a noninfectious inflammatory pneumonitis. Small, 4.0 cm, ascending thoracic aortic aneurysm with no hemorrhage or dissection. Individualized dose optimization techniques were used for this CT. at 1927 Reported and signed by: Salinas Noriega MD Electronically Signed: Salinas Noriega, at 19:26 EST Tel , Service support , Chest X-Ray 07/24/18 08:42 IMPRESSION: Progressive bilateral airspace disease. The tip of the endotracheal tube is at 4.1 cm proximal to the sunshine. The tip of the orogastric tube is in the body of the stomach. Electronically Signed: Shar Castillo, at 14:18 EST , Service support , Chest X-Ray 07/25/18 08:20 IMPRESSION: Since prior study, there has been improved aeration of both lungs although residual bilateral airspace disease is seen. Electronically Signed: Shar Castillo, at 9:08 EST , Service support , Medical Necessity - Tobacco Use Smoking Status: Former smoker Tobacco Use: Non-smoker Assessment/Plan All Active Problems (Last Reviewed 07/20/18 @ 21:39 by Joaquín Laughlin DO) Acute bronchitis (Acute) Influenza A (Acute) Constipation (Acute) PAUL (acute kidney injury) (Acute) Atrial flutter (Acute) Paroxysmal atrial fibrillation (Acute) Hyperlipidemia (Acute) RECOMMENDATIONS: 1. Continue current supportive measures with lung protective ventilatory strategy. 2. Wean FiO2 and PEEP to maintain an oxygen saturation at or above 90%. 3. Obtain repeat plain film chest x-ray this morning. 4. Hold beta-madalyn dose. 5. Start volume optimization with IV diuretics today. 6. Slowly wean sedative medications over the course of the day. 7. Attempt to resume tube feeds. 8. Start bowel regimen and prokinetic agent. 9. Continue antibiotics per ID recommendations 10. Continue scheduled aerosol treatments and appropriate ICU prophylaxis IMPRESSIONS: 1. Acute hypoxemic respiratory failure secondary to influenza A infection and severe community-acquired pneumonia/evolving ARDS The patient has a questionable baseline history of COPD. He was seen in the pulmonary medicine clinic 1 year ago, at which time, pulmonary function studies were ordered. However, the patient never followed up. Although the patient was admitted to the hospital with influenza A and a plain film chest x-ray which was largely unremarkable, follow-up chest imaging subsequently revealed evidence of evolving multifocal pneumonia. The patient has essentially gone on to develop full-blown ARDS. He did require intubation on the morning of July 24. He will be maintained on a lung protective ventilator strategy. We will continue to wean FiO2 and PEEP to maintain an oxygen saturation at or above 90%. We will continue scheduled Atrovent and steroids as ordered. The patient's sedation regimen will be cautiously weaned over the course of today. In addition, a repeat plain film chest x-ray will be obtained this morning. IV diuretics will also be started today. 2. New onset atrial flutter with rapid ventricular rate The patient did require bedside cardioversion on July 26. Since that time, he is remained in normal sinus rhythm. We will plan to continue current medical management per cardiology recommendations. 3. Acute kidney injury Improving. Nephrology is currently following. Avoid nephrotoxic agents. Continue to monitor urine output. No current indication for renal replacement therapy. 4. Known history of pulmonary nodules The patient is actually past due for a repeat CT chest due to his previously identified pulmonary nodules in March 2017. 5. Obstructive sleep apnea The patient is currently noncompliant with the use of nocturnal noninvasive positive pressure ventilation. 6. Rheumatoid arthritis/atrial fibrillation status post ablation/coronary artery disease/tobacco dependency currently in remission Complicates care, management, recovery and prognosis. Continue home medications as indicated. Continue basal and sliding scale insulin regimen. Physical therapy to work with patient, once medically stabilized. TIME: 45 minutes of critical care time, independent of procedures, was spent addressing the patient's acute hypoxemic respiratory failure, influenza A infection, severe community-acquired pneumonia, ARDS, acute kidney injury, new onset atrial flutter with rapid ventricular rate, history of pulmonary nodules, obstructive sleep apnea, review of all data and collaboration with the care team. ([id number]) Code Visit [id number]: [id number] Critical care first hour
--- NOTE | 2018-07-28 06:42 | PN_ITS ---
Subjective: The patient was seen and examined at the bedside this morning. Events from the last 24 hours have been reviewed. The patient is currently afebrile, hemodynamically stable and maintaining appropriate oxygen saturations on 60% FiO2. The patient's respiratory status remains exceedingly tenuous. Although his FiO2 was able to be weaned down as low as 50% overnight, with any type of movement or stimulation, the patient desaturates quickly. The patient's continuous amiodarone infusion was discontinued. His Lopressor is currently on hold due to periods of bradycardia. The patient's creatinine is improving. He has still not yet had a bowel movement. His tube feeds are currently on hold. The patient is currently documented to be overall net +12.2 L for the admission. Objective: The patient's most recent lab work, culture data and imaging studies have all been personally reviewed. Chest imaging studies have all revealed significant multifocal bilateral infiltrates. Surface echocardiogram revealed mild concentric LVH with an ejection fraction of 55% and stage II diastolic dysfunction. Pulmonary artery systolic pressure was estimated to be 26 mmHg. The patient's rapid influenza screen was positive for influenza A. The remainder of his infectious workup, including sputum cultures have been unrevealing to date. General: - - Remains intubated, heavily sedated and mechanically ventilated. HEENT: Atraumatic, PERRLA, Normocephalic Oral: No Gingival or Mucosal Lesions/ Ulcerations, - - Endotracheal tube and OG tube remain in place Neck: Supple, No Nodes, Trachea Midline Lungs: No rhonchi, No wheeze, No rales, Diminished Cardiovascular: Normal S1, Normal S2, No murmurs, Bradycardic Abdomen: Soft, Non Tender, Hypoactive Bowel Sounds, Obese Extremities: No clubbing, No cyanosis, Edema - Trace LE Skin: No breakdown Musculoskeletal: No Tenderness to Palpation of Joints or Extremities Lymphatic: No Cervical, Supraclavicular, or Inguinal Adenopathy Neurological: - - Currently sedated with a RASS of -4 Vital Signs Temp Pulse Resp BP Pulse Ox 36.8 C 53 L 16 109/58 L 95 07/28/18 04:00 07/28/18 06:00 07/28/18 06:00 07/28/18 06:00 07/28/18 06:00 Oxygen Flow Rate (L/min) 15 Oxygen Delivery Method Mechanical Ventilator Weight: 261 lb 0.437 oz Body Mass Index (BMI) 38.6 Intake and Output for Last 24 Hours 07/26/18 07/27/18 07/28/18 23:59 23:59 23:59 Intake Total 3849.7 / 3849.7 3951.8 / 3951.8 544 / 544 Output Total 1750 / 1750 2049 / 2049 775 / 775 Balance 2099.7 / 2099.7 1901.8 / 1901.8 -231 / -231 Labs (Last 48 Hours) 07/25/18 07/26/18 07/26/18 11:00 08:55 09:32 WBC RBC Hgb Hct MCV MCH MCHC RDW RDW Differential Plt Count MPV Neut % (Auto) Absolute Neuts (auto) Absolute Lymphs (auto) Total Counted Neutrophils % (Manual) Band Neutrophils % Lymphocytes % (Manual) Monocytes % (Manual) Eosinophils % (Manual) Metamyelocytes % Myelocytes % Diff Path Review Platelet Estimate Plt Morphology Comment Polychromasia Macrocytosis Eos Smear Total Cells No Eosinophils Seen PT INR APTT Specimen Type Sample Site pH Bicarbonate Actual POC Total CO2 Base Excess O2 Saturation O2 % ABG pCO2 ABG pO2 Mir Test Respiration Rate O2 Delivery Device Vent Mode Tidal Volume POC PEEP Blood Gas Notified Whom Blood Gas Notified Time Sodium Potassium Chloride Carbon Dioxide Anion Gap BUN Creatinine Estim Creat Clear Calc Est GFR (MDRD) Af Amer Est GFR (MDRD) Non-Af BUN/Creatinine Ratio Glucose Calcium Magnesium 3.1 H Troponin I < 0.015 POC Glucose 258 H 07/26/18 07/26/18 07/26/18 09:52 10:23 13:58 WBC RBC Hgb Hct MCV MCH MCHC RDW RDW Differential Plt Count MPV Neut % (Auto) Absolute Neuts (auto) Absolute Lymphs (auto) Total Counted Neutrophils % (Manual) Band Neutrophils % Lymphocytes % (Manual) Monocytes % (Manual) Eosinophils % (Manual) Metamyelocytes % Myelocytes % Diff Path Review Platelet Estimate Plt Morphology Comment Polychromasia Macrocytosis Eos Smear Total Cells PT 13.5 INR 1.1 APTT 26.3 Specimen Type ART Sample Site R Radial pH 7.24 L Bicarbonate Actual 28.4 H POC Total CO2 30 Base Excess 1 O2 Saturation 92 L O2 % 90 ABG pCO2 65.7 H ABG pO2 78 Mir Test POS Respiration Rate 16 O2 Delivery Device Vent Vent Mode A-C Tidal Volume 450 POC PEEP 12 Blood Gas Notified Whom ICU MD Blood Gas Notified Time 947 Sodium Potassium Chloride Carbon Dioxide Anion Gap BUN Creatinine Estim Creat Clear Calc Est GFR (MDRD) Af Amer Est GFR (MDRD) Non-Af BUN/Creatinine Ratio Glucose Calcium Magnesium Troponin I POC Glucose 292 H 07/26/18 07/26/18 07/26/18 17:10 17:46 22:30 WBC RBC Hgb Hct MCV MCH MCHC RDW RDW Differential Plt Count MPV Neut % (Auto) Absolute Neuts (auto) Absolute Lymphs (auto) Total Counted Neutrophils % (Manual) Band Neutrophils % Lymphocytes % (Manual) Monocytes % (Manual) Eosinophils % (Manual) Metamyelocytes % Myelocytes % Diff Path Review Platelet Estimate Plt Morphology Comment Polychromasia Macrocytosis Eos Smear Total Cells PT INR APTT 92.7 H* Specimen Type Sample Site pH Bicarbonate Actual POC Total CO2 Base Excess O2 Saturation O2 % ABG pCO2 ABG pO2 Mir Test Respiration Rate O2 Delivery Device Vent Mode Tidal Volume POC PEEP Blood Gas Notified Whom Blood Gas Notified Time Sodium Potassium Chloride Carbon Dioxide Anion Gap BUN Creatinine Estim Creat Clear Calc Est GFR (MDRD) Af Amer Est GFR (MDRD) Non-Af BUN/Creatinine Ratio Glucose Calcium Magnesium Troponin I POC Glucose 327 H 329 H 07/26/18 07/27/18 07/27/18 22:55 01:29 05:30 WBC RBC Hgb Hct MCV MCH MCHC RDW RDW Differential Plt Count MPV Neut % (Auto) Absolute Neuts (auto) Absolute Lymphs (auto) Total Counted Neutrophils % (Manual) Band Neutrophils % Lymphocytes % (Manual) Monocytes % (Manual) Eosinophils % (Manual) Metamyelocytes % Myelocytes % Diff Path Review Platelet Estimate Plt Morphology Comment Polychromasia Macrocytosis Eos Smear Total Cells PT INR APTT 106.3 H* Specimen Type Sample Site pH Bicarbonate Actual POC Total CO2 Base Excess O2 Saturation O2 % ABG pCO2 ABG pO2 Mir Test Respiration Rate O2 Delivery Device Vent Mode Tidal Volume POC PEEP Blood Gas Notified Whom Blood Gas Notified Time Sodium Potassium Chloride Carbon Dioxide Anion Gap BUN Creatinine Estim Creat Clear Calc Est GFR (MDRD) Af Amer Est GFR (MDRD) Non-Af BUN/Creatinine Ratio Glucose Calcium Magnesium Troponin I POC Glucose 296 H 306 H 07/27/18 07/27/18 07/27/18 05:45 05:45 05:45 WBC 9.7 RBC 3.88 L Hgb 12.1 L Hct 38.8 L MCV 100.0 H MCH 31.2 MCHC 31.2 L RDW 13.5 RDW Differential 49.3 H Plt Count 236 MPV 10.9 Neut % (Auto) Not Reportable Absolute Neuts (auto) 8.7 H Absolute Lymphs (auto) 0.39 L Total Counted 100 Neutrophils % (Manual) 89 H Band Neutrophils % 1 Lymphocytes % (Manual) 4 L Monocytes % (Manual) 5 Eosinophils % (Manual) Metamyelocytes % 1 Myelocytes % Diff Path Review Reviewed Platelet Estimate ADEQUATE Plt Morphology Comment LARGE Polychromasia RARE Macrocytosis 1+ Eos Smear Total Cells PT INR APTT 72.8 H Specimen Type Sample Site pH Bicarbonate Actual POC Total CO2 Base Excess O2 Saturation O2 % ABG pCO2 ABG pO2 Mir Test Respiration Rate O2 Delivery Device Vent Mode Tidal Volume POC PEEP Blood Gas Notified Whom Blood Gas Notified Time Sodium 143 Potassium 5.2 H Chloride 108 H Carbon Dioxide 26.0 Anion Gap 9 BUN 67 H Creatinine 2.13 H Estim Creat Clear Calc 33.45 Est GFR (MDRD) Af Amer 40 L Est GFR (MDRD) Non-Af 33 L BUN/Creatinine Ratio 31.5 H Glucose 328 H Calcium 8.1 L Magnesium Troponin I POC Glucose 07/27/18 07/27/18 07/27/18 09:35 11:35 13:25 WBC RBC Hgb Hct MCV MCH MCHC RDW RDW Differential Plt Count MPV Neut % (Auto) Absolute Neuts (auto) Absolute Lymphs (auto) Total Counted Neutrophils % (Manual) Band Neutrophils % Lymphocytes % (Manual) Monocytes % (Manual) Eosinophils % (Manual) Metamyelocytes % Myelocytes % Diff Path Review Platelet Estimate Plt Morphology Comment Polychromasia Macrocytosis Eos Smear Total Cells PT INR APTT 86.5 H Specimen Type Sample Site pH Bicarbonate Actual POC Total CO2 Base Excess O2 Saturation O2 % ABG pCO2 ABG pO2 Mir Test Respiration Rate O2 Delivery Device Vent Mode Tidal Volume POC PEEP Blood Gas Notified Whom Blood Gas Notified Time Sodium Potassium Chloride Carbon Dioxide Anion Gap BUN Creatinine Estim Creat Clear Calc Est GFR (MDRD) Af Amer Est GFR (MDRD) Non-Af BUN/Creatinine Ratio Glucose Calcium Magnesium Troponin I POC Glucose 314 H 303 H 07/27/18 07/27/18 07/27/18 17:42 18:30 21:45 WBC RBC Hgb Hct MCV MCH MCHC RDW RDW Differential Plt Count MPV Neut % (Auto) Absolute Neuts (auto) Absolute Lymphs (auto) Total Counted Neutrophils % (Manual) Band Neutrophils % Lymphocytes % (Manual) Monocytes % (Manual) Eosinophils % (Manual) Metamyelocytes % Myelocytes % Diff Path Review Platelet Estimate Plt Morphology Comment Polychromasia Macrocytosis Eos Smear Total Cells PT INR APTT 76.0 H Specimen Type Sample Site pH Bicarbonate Actual POC Total CO2 Base Excess O2 Saturation O2 % ABG pCO2 ABG pO2 Mir Test Respiration Rate O2 Delivery Device Vent Mode Tidal Volume POC PEEP Blood Gas Notified Whom Blood Gas Notified Time Sodium Potassium Chloride Carbon Dioxide Anion Gap BUN Creatinine Estim Creat Clear Calc Est GFR (MDRD) Af Amer Est GFR (MDRD) Non-Af BUN/Creatinine Ratio Glucose Calcium Magnesium Troponin I POC Glucose 315 H 290 H 07/28/18 07/28/18 07/28/18 00:05 01:44 04:30 WBC 9.5 RBC 3.89 L Hgb 12.1 L Hct 37.8 L MCV 97.2 H MCH 31.1 MCHC 32.0 RDW 13.8 RDW Differential 49.1 H Plt Count 247 MPV 10.5 Neut % (Auto) Not Reportable Absolute Neuts (auto) 8.2 H Absolute Lymphs (auto) 0.76 L Total Counted 100 Neutrophils % (Manual) 84 H Band Neutrophils % 2 Lymphocytes % (Manual) 8 L Monocytes % (Manual) 4 Eosinophils % (Manual) 1 Metamyelocytes % Myelocytes % 1 H Diff Path Review May foll Platelet Estimate Plt Morphology Comment Polychromasia Macrocytosis Eos Smear Total Cells PT INR APTT 70.2 H Specimen Type Sample Site pH Bicarbonate Actual POC Total CO2 Base Excess O2 Saturation O2 % ABG pCO2 ABG pO2 Mir Test Respiration Rate O2 Delivery Device Vent Mode Tidal Volume POC PEEP Blood Gas Notified Whom Blood Gas Notified Time Sodium Potassium Chloride Carbon Dioxide Anion Gap BUN Creatinine Estim Creat Clear Calc Est GFR (MDRD) Af Amer Est GFR (MDRD) Non-Af BUN/Creatinine Ratio Glucose Calcium Magnesium Troponin I POC Glucose 248 H 07/28/18 07/28/18 07/28/18 04:30 04:30 05:25 WBC RBC Hgb Hct MCV MCH MCHC RDW RDW Differential Plt Count MPV Neut % (Auto) Absolute Neuts (auto) Absolute Lymphs (auto) Total Counted Neutrophils % (Manual) Band Neutrophils % Lymphocytes % (Manual) Monocytes % (Manual) Eosinophils % (Manual) Metamyelocytes % Myelocytes % Diff Path Review Platelet Estimate Plt Morphology Comment Polychromasia Macrocytosis Eos Smear Total Cells PT INR APTT 66.6 H Specimen Type Sample Site pH Bicarbonate Actual POC Total CO2 Base Excess O2 Saturation O2 % ABG pCO2 ABG pO2 Mir Test Respiration Rate O2 Delivery Device Vent Mode Tidal Volume POC PEEP Blood Gas Notified Whom Blood Gas Notified Time Sodium 143 Potassium 4.9 Chloride 109 H Carbon Dioxide 27.0 Anion Gap 7 BUN 63 H Creatinine 1.82 H Estim Creat Clear Calc 39.15 Est GFR (MDRD) Af Amer 48 L Est GFR (MDRD) Non-Af 40 L BUN/Creatinine Ratio 34.6 H Glucose 220 H Calcium 8.0 L Magnesium Troponin I POC Glucose 188 H Microbiology 07/21/18 11:55 Blood Culture (Wb) - Right Hand Blood Culture - Final No growth in 5 days. 07/21/18 11:45 Blood Culture (Wb) - Anticubital Right Blood Culture - Final No growth in 5 days. 07/24/18 10:10 Sputum, Tracheal Aspirate Gram Stain - Final 07/24/18 10:10 Sputum, Tracheal Aspirate Respiratory Culture - Final Presumptive C albicans Clinical Impression(s) from Imaging Studies KUB X-Ray 07/20/18 18:41 IMPRESSION: No evidence of obstruction or perforation. at 2002 Reported and signed by: Salinas Noriega MD Electronically Signed: Salinas Noriega, at 20:02 EST Tel , Service support , Chest X-Ray 07/20/18 19:30 IMPRESSION: No radiographic evidence of acute cardiopulmonary disease. at 2002 Reported and signed by: Salinas Noriega MD Electronically Signed: Salinas Noriega, at 20:02 EST Tel , Service support , Abdomen X-Ray 07/21/18 11:07 IMPRESSION: Diffuse distention of bowel most likely ileus. Distal colonic obstruction not likely but possible. at 0143 Reported and signed by: Salinas Noriega MD Electronically Signed: Salinas Noriega, at 1:42 EST Tel , Service support , Chest X-Ray 07/22/18 09:37 IMPRESSION: Findings concerning for multifocal pneumonia in the appropriate clinical setting with underlying alveolar edema not completely excluded. Recommend follow-up imaging in 4-6 weeks after appropriate treatment. Electronically Signed: Pacheco Galo DO at 9:56 EST , Service support , Chest CTA 07/22/18 17:51 IMPRESSION: No pulmonary embolus. Multifocal bilateral airspace disease in the lungs similar to the most recent chest radiograph but increased compared to 07/20/18 compatible with multifocal pneumonia versus a noninfectious inflammatory pneumonitis. Small, 4.0 cm, ascending thoracic aortic aneurysm with no hemorrhage or dissection. Individualized dose optimization techniques were used for this CT. at 1927 Reported and signed by: Salinas Noriega MD Electronically Signed: Salinas Noriega, at 19:26 EST Tel , Service support , Chest X-Ray 07/24/18 08:42 IMPRESSION: Progressive bilateral airspace disease. The tip of the endotracheal tube is at 4.1 cm proximal to the sunshine. The tip of the orogastric tube is in the body of the stomach. Electronically Signed: Shar Castillo, at 14:18 EST , Service support , Chest X-Ray 07/25/18 08:20 IMPRESSION: Since prior study, there has been improved aeration of both lungs although residual bilateral airspace disease is seen. Electronically Signed: Shar Castillo, at 9:08 EST , Service support , Medical Necessity - Tobacco Use Smoking Status: Former smoker Tobacco Use: Non-smoker Assessment/Plan All Active Problems (Last Reviewed 07/20/18 @ 21:39 by Joaquín Laughlin DO) Acute bronchitis (Acute) Influenza A (Acute) Constipation (Acute) PAUL (acute kidney injury) (Acute) Atrial flutter (Acute) Paroxysmal atrial fibrillation (Acute) Hyperlipidemia (Acute) RECOMMENDATIONS: 1. Continue current supportive measures with lung protective ventilatory strat egy. 2. Wean FiO2 and PEEP to maintain an oxygen saturation at or above 90%. 3. Obtain repeat plain film chest x-ray this morning. 4. Hold beta-madalyn dose. 5. Start volume optimization with IV diuretics today. 6. Slowly wean sedative medications over the course of the day. 7. Attempt to resume tube feeds. 8. Start bowel regimen and prokinetic agent. 9. Continue antibiotics per ID recommendations 10. Continue scheduled aerosol treatments and appropriate ICU prophylaxis IMPRESSIONS: 1. Acute hypoxemic respiratory failure secondary to influenza A infection and severe community-acquired pneumonia/evolving ARDS The patient has a questionable baseline history of COPD. He was seen in the pulmonary medicine clinic 1 year ago, at which time, pulmonary function studies were ordered. However, the patient never followed up. Although the patient was admitted to the hospital with influenza A and a plain film chest x-ray which was largely unremarkable, follow-up chest imaging subsequently revealed evidence of evolving multifocal pneumonia. The patient has essentially gone on to develop full-blown ARDS. He did require intubation on the morning of July 24. He will be maintained on a lung protective ventilator strategy. We will continue to wean FiO2 and PEEP to maintain an oxygen saturation at or above 90%. We will continue scheduled Atrovent and steroids as ordered. The patient's sedation regimen will be cautiously weaned over the course of today. In addition, a repeat plain film chest x-ray will be obtained this morning. IV diuretics will also be started today. 2. New onset atrial flutter with rapid ventricular rate The patient did require bedside cardioversion on July 26. Since that time, he is remained in normal sinus rhythm. We will plan to continue current medical management per cardiology recommendations. 3. Acute kidney injury Improving. Nephrology is currently following. Avoid nephrotoxic agents. Continue to monitor urine output. No current indication for renal replacement therapy. 4. Known history of pulmonary nodules The patient is actually past due for a repeat CT chest due to his previously identified pulmonary nodules in March 2017. 5. Obstructive sleep apnea The patient is currently noncompliant with the use of nocturnal noninvasive positive pressure ventilation. 6. Rheumatoid arthritis/atrial fibrillation status post ablation/coronary artery disease/tobacco dependency currently in remission Complicates care, management, recovery and prognosis. Continue home medications as indicated. Continue basal and sliding scale insulin regimen. Physical therapy to work with patient, once medically stabilized. TIME: 45 minutes of critical care time, independent of procedures, was spent addressing the patient's acute hypoxemic respiratory failure, influenza A infection, severe community-acquired pneumonia, ARDS, acute kidney injury, new onset atrial flutter with rapid ventricular rate, history of pulmonary nodules, obstructive sleep apnea, review of all data and collaboration with the care team. ([id number]) Code Visit 9xxxx: [id number] Critical care first hour
[2018-07-28] MEDS: Furosemide 40 MG/4 ML Vial IV ×2 (06:50→18:48)
[2018-07-28] MEDS: Famotidine 20 MG Tablet GT ×2 (08:23→21:31)
[2018-07-28] MEDS: Aspirin 81 MG TAB.CHEW GT (08:23)
[2018-07-28] MEDS: Senna/Docusate Sodium 1 Tablet 2 TABLET PO ×2 (08:23→21:31)
[2018-07-28] MEDS: Polyethylene Glycol 3350 17 GM PACKET GT ×2 (08:24→21:31)
[2018-07-28] MEDS: Folic Acid 1 MG Tablet GT (08:24)
[2018-07-28 10:31] LABS: Bedside Glucose 175 mg/dL (70-110)
[2018-07-28] MEDS: Chlorhexidine 15 ML PO ×2 (10:32→21:31)
[2018-07-28] MEDS: HEPARIN/D5w 25,000 UNITS 25,000 UNITS/250 ML IV.SOLN. 16 UNITS IV (10:32)
[2018-07-28] MEDS: Metoclopramide 10 MG/2 ML Vial 5 MG IV ×2 (10:34→18:49)
--- NOTE | 2018-07-28 10:51 | CASEMGMT ---
SW/CM participated in ICU rounds this morning, pt's present. Pt remains on the ventilator this morning. SW/CM will continue to follow for discharge planning needs, at this time it is too soon to know what level of care will be appropriate at discharge. NIKOLE Matias, SENIOR PASTOR
--- NOTE | 2018-07-28 11:10 | PCM.PN.CARD ---
Subjectve: The patient remain sedated and mechanically intubated and ventilated. Objective: Vital Signs Temp Pulse Resp BP Pulse Ox 97.4 F L 56 L 16 112/61 93 07/28/18 08:00 07/28/18 08:00 07/28/18 08:00 07/28/18 08:00 07/28/18 08:00 Oxygen Flow Rate (L/min) 15 Oxygen Delivery Method Mechanical Ventilator Weight: 261 lb 0.437 oz Body Mass Index (BMI) 38.6 Intake and Output for Last 24 Hours 07/26/18 07/27/18 07/28/18 23:59 23:59 23:59 Intake Total 3849.7 / 3849.7 3951.8 / 3951.8 844 / 844 Output Total 1750 / 1750 2050 / 2050 1775 / 1775 Balance 2099.7 / 2099.7 1901.8 / 1901.8 -931 / -931 Lungs: - - Scattered upper airway sounds Cardiovascular: Regular Rhythm, Normal S1, Normal S2 Abdomen: Bowel Sounds Present, Soft Extremities: Trace RLE Edema, Trace LLE Edema 07/27/18 11:35: APTT 86.5 H 07/27/18 18:30: APTT 76.0 H 07/28/18 00:05: APTT 70.2 H 07/28/18 04:30: WBC 9.5, RBC 3.89 L, Hgb 12.1 L, Hct 37.8 L, MCV 97.2 H, MCH 31.1, MCHC 32.0, RDW 13.8, RDW Differential 49.1 H, Plt Count 247, MPV 10.5, Neut % (Auto) Not Reportable, Absolute Neuts (auto) 8.2 H, Total Counted 100, Neutrophils % (Manual) 84 H, Band Neutrophils % 2, Lymphocytes % (Manual) 8 L, Monocytes % (Manual) 4, Eosinophils % (Manual) 1, Myelocytes % 1 H 07/28/18 04:30: Sodium 143, Potassium 4.9, Chloride 109 H, Carbon Dioxide 27.0, Anion Gap 7, BUN 63 H, Creatinine 1.82 H, Est GFR (MDRD) Af Amer 48 L, Est GFR (MDRD) Non-Af 40 L, BUN/Creatinine Ratio 34.6 H, Glucose 220 H, Calcium 8.0 L 07/28/18 04:30: APTT 66.6 H Rhythm:sinus rhythm/sinus bradycardia Medical Necessity - Tobacco Use Smoking Status: Former smoker Tobacco Use: Non-smoker Assessment/Plan 1. Atrial flutter The patient continues in sinus rhythm at this time. He will continue rate control therapy, antiarrhythmic therapy, and anticoagulant therapy. This will include adjusting his beta blockers based upon his underlying rate and blood pressure, and antiarrhythmic therapy medication with appropriate weaning/tapering, and anticoagulant therapy which will remain with IV heparin at the time being until his clinical course is stabilized, not knowing if he requires additional invasive evaluation from any aspect at this time, prior to changing to an oral anticoagulant for a period of time. 2. Atrial fibrillation status post EPS/RFA At the moment he is not demonstrated obvious recurrent atrial fibrillation. He will continue evaluation care as noted above. 3. CAD status post RCA PTCA/RACHEL He will need to be monitored for any obvious involvement of his coronary artery system. Thus far his troponin I level was negative. He has remained hemodynamically stable. He has not had no acute changes on his ECG. He will continue medical management as tolerated. 4. Hyperlipidemia He will continue lipid-lowering therapy as tolerated. 5. Hypertension His blood pressure appears to be stable to elevated at this time. He will continue medical adjustment as needed. 6. Influenza A The patient remains on the ventilator at this time. He will continue evaluation care per pulmonology/critical care medicine. 7. Acute renal insufficiency His BUN and creatinine will need to be followed. This may impact his medications, etc. Comment: The patient's case was discussed and reviewed with Dr. Ponce pulmonology and critical care medicine. This note was generated using a voice recognition system and there may be incorrect words, spelling or punctuation that were not noted when reviewing the office note prior to saving.
--- NOTE | 2018-07-28 11:50 | PCM.PN.ID ---
Patient Problems: Active and Suspected Problems (Last Reviewed 07/20/18 @ 21:39 by Joaquín Laughlin DO) Acute bronchitis (Acute) Influenza A (Acute) Constipation (Acute) PAUL (acute kidney injury) (Acute) Atrial flutter (Acute) Subjective: Off paralytics, breathing improved, no fever - Physical Exam General: No apparent distress Lungs: Diminished Cardiovascular: Regular rate, Regular Rhythm Abdomen: Soft, Non Tender, Non-Distended Skin: No rashes Vital Signs Temp Pulse Resp BP Pulse Ox 97.4 F L 63 16 116/67 95 07/28/18 08:00 07/28/18 11:00 07/28/18 11:00 07/28/18 11:00 07/28/18 11:00 Oxygen Flow Rate (L/min) 15 Oxygen Delivery Method Mechanical Ventilator Weight: 118.4 kg Body Mass Index (BMI) 38.6 Intake and Output for Last 24 Hours 07/26/18 07/27/18 07/28/18 23:59 23:59 23:59 Intake Total 3849.7 / 3849.7 3951.8 / 3951.8 844 / 844 Output Total 1750 / 1750 2049 / 2049 2825 / 2825 Balance 2099.7 / 2099.7 1901.8 / 1901.8 -1980 / Microbiology Past 72 Hours 07/21/18 11:55 Blood Culture - Final Blood Culture (Wb) - Right Hand No growth in 5 days. 07/21/18 11:45 Blood Culture - Final Blood Culture (Wb) - Anticubital Right No growth in 5 days. 07/24/18 10:10 Gram Stain - Final Sputum, Tracheal Aspirate Respiratory Culture - Final Presumptive C albicans Laboratory Tests Past 24 Hrs 07/27/18 07/27/18 07/27/18 05:45 11:35 18:30 WBC RBC Hgb Hct MCV MCH MCHC RDW RDW Differential Plt Count MPV Neut % (Auto) Absolute Neuts (auto) Absolute Lymphs (auto) Total Counted Neutrophils % (Manual) Band Neutrophils % Lymphocytes % (Manual) Monocytes % (Manual) Eosinophils % (Manual) Myelocytes % Diff Path Review Reviewed APTT 86.5 H 76.0 H Sodium Potassium Chloride Carbon Dioxide Anion Gap BUN Creatinine Estim Creat Clear Calc Est GFR (MDRD) Af Amer Est GFR (MDRD) Non-Af BUN/Creatinine Ratio Glucose Calcium 07/28/18 07/28/18 07/28/18 00:05 04:30 04:30 WBC 9.5 RBC 3.89 L Hgb 12.1 L Hct 37.8 L MCV 97.2 H MCH 31.1 MCHC 32.0 RDW 13.8 RDW Differential 49.1 H Plt Count 247 MPV 10.5 Neut % (Auto) Not Reportable Absolute Neuts (auto) 8.2 H Absolute Lymphs (auto) 0.76 L Total Counted 100 Neutrophils % (Manual) 84 H Band Neutrophils % 2 Lymphocytes % (Manual) 8 L Monocytes % (Manual) 4 Eosinophils % (Manual) 1 Myelocytes % 1 H Diff Path Review May foll APTT 70.2 H Sodium 143 Potassium 4.9 Chloride 109 H Carbon Dioxide 27.0 Anion Gap 7 BUN 63 H Creatinine 1.82 H Estim Creat Clear Calc 39.15 Est GFR (MDRD) Af Amer 48 L Est GFR (MDRD) Non-Af 40 L BUN/Creatinine Ratio 34.6 H Glucose 220 H Calcium 8.0 L 07/28/18 04:30 WBC RBC Hgb Hct MCV MCH MCHC RDW RDW Differential Plt Count MPV Neut % (Auto) Absolute Neuts (auto) Absolute Lymphs (auto) Total Counted Neutrophils % (Manual) Band Neutrophils % Lymphocytes % (Manual) Monocytes % (Manual) Eosinophils % (Manual) Myelocytes % Diff Path Review APTT 66.6 H Sodium Potassium Chloride Carbon Dioxide Anion Gap BUN Creatinine Estim Creat Clear Calc Est GFR (MDRD) Af Amer Est GFR (MDRD) Non-Af BUN/Creatinine Ratio Glucose Calcium POC Glucose 07/28/18 07/28/18 07/28/18 10:25 05:25 01:44 POC Glucose 175 H 188 H 248 H 07/27/18 07/27/18 07/27/18 21:45 17:42 13:25 POC Glucose 290 H 315 H 303 H Medical Necessity - Tobacco Use Smoking Status: Former smoker Tobacco Use: Non-smoker Route of nutrition/ use of supplements: [] Nutritional Intake: [] IV Site: [] Qiu Catheter: [] - Assessment/Plan Antibiotics: [] Assessment/Plan: [] Active and Suspected Problems (Last Reviewed 07/20/18 @ 21:39 by Joauqín Laughlin DO) Acute bronchitis (Acute) Influenza A (Acute) Constipation (Acute) Acute hypoxic resp failure with ARDS and flu A - now with PAUL. Completed tamiflu 07/26. On zosyn. Sputum gram stain 07/24 with no GPC seen. MRSA screening pcr was neg. Improved FiO2 this AM. Cr stable. Plan on stopping zosyn today. Will follow, d/w Dr. Ponce.
[2018-07-28] MEDS: Magnesium Citrate 300 ML 150 ML GT ×2 (12:22→16:13)
[2018-07-28 12:50] LABS: Pathologist Review Reviewed
--- NOTE | 2018-07-28 14:14 | PCM.PN.REN ---
Patient Problems: Active and Suspected Problems (Last Reviewed 07/20/18 @ 21:39 by Joaquín Laughlin DO) Acute bronchitis (Acute) Influenza A (Acute) Constipation (Acute) PAUL (acute kidney injury) (Acute) Atrial flutter (Acute) Subjective: no new events FiO2 is down to 50% PEEP 10 CXR is somewhat better - Physical Exam HEENT: Atraumatic, PERRLA, EOMI, Normocephalic Neck: Supple, No JVD, Negative Carotid Bruits Lungs: Clear to auscultation, Normal air movement Cardiovascular: Regular rate, No murmurs Abdomen: Bowel Sounds Present, Soft, Non Tender Extremities: No edema, Capillary Refill Less than 3 Seconds Skin: No rashes, No breakdown Musculoskeletal: No Tenderness to Palpation of Joints or Extremities Vital Signs Temp Pulse Resp BP Pulse Ox 99.8 F H 80 22 H 123/66 H 91 07/28/18 12:00 07/28/18 12:00 07/28/18 12:00 07/28/18 12:00 07/28/18 12:00 Oxygen Flow Rate (L/min) 15 Oxygen Delivery Method Mechanical Ventilator Weight: 118.4 kg Body Mass Index (BMI) 38.6 Intake and Output for Last 24 Hours 07/26/18 07/27/18 07/28/18 23:59 23:59 23:59 Intake Total 3849.7 / 3849.7 3951.8 / 3951.8 1754 / 1754 Output Total 1750 / 1750 2050 / 2050 3225 / 3225 Balance 2099.7 / 2099.7 1901.8 / 1901.8 -1471 / -1471 Microbiology Past 72 Hours 07/21/18 11:55 Blood Culture - Final Blood Culture (Wb) - Right Hand No growth in 5 days. 07/21/18 11:45 Blood Culture - Final Blood Culture (Wb) - Anticubital Right No growth in 5 days. 07/24/18 10:10 Gram Stain - Final Sputum, Tracheal Aspirate Respiratory Culture - Final Presumptive C albicans Laboratory Tests Past 24 Hrs 07/27/18 07/28/18 07/28/18 18:30 00:05 04:30 WBC 9.5 RBC 3.89 L Hgb 12.1 L Hct 37.8 L MCV 97.2 H MCH 31.1 MCHC 32.0 RDW 13.8 RDW Differential 49.1 H Plt Count 247 MPV 10.5 Neut % (Auto) Not Reportable Absolute Neuts (auto) 8.2 H Absolute Lymphs (auto) 0.76 L Total Counted 100 Neutrophils % (Manual) 84 H Band Neutrophils % 2 Lymphocytes % (Manual) 8 L Monocytes % (Manual) 4 Eosinophils % (Manual) 1 Myelocytes % 1 H Diff Path Review Reviewed APTT 76.0 H 70.2 H Sodium Potassium Chloride Carbon Dioxide Anion Gap BUN Creatinine Estim Creat Clear Calc Est GFR (MDRD) Af Amer Est GFR (MDRD) Non-Af BUN/Creatinine Ratio Glucose Calcium 07/28/18 07/28/18 04:30 04:30 WBC RBC Hgb Hct MCV MCH MCHC RDW RDW Differential Plt Count MPV Neut % (Auto) Absolute Neuts (auto) Absolute Lymphs (auto) Total Counted Neutrophils % (Manual) Band Neutrophils % Lymphocytes % (Manual) Monocytes % (Manual) Eosinophils % (Manual) Myelocytes % Diff Path Review APTT 66.6 H Sodium 143 Potassium 4.9 Chloride 109 H Carbon Dioxide 27.0 Anion Gap 7 BUN 63 H Creatinine 1.82 H Estim Creat Clear Calc 39.15 Est GFR (MDRD) Af Amer 48 L Est GFR (MDRD) Non-Af 40 L BUN/Creatinine Ratio 34.6 H Glucose 220 H Calcium 8.0 L POC Glucose 07/28/18 07/28/18 07/28/18 10:25 05:25 01:44 POC Glucose 175 H 188 H 248 H 07/27/18 07/27/18 21:45 17:42 POC Glucose 290 H 315 H Medical Necessity - Tobacco Use Smoking Status: Former smoker Tobacco Use: Non-smoker Assessment/Plan All Active Problems (Last Reviewed 07/20/18 @ 21:39 by Joaquín Laughlin DO) Acute bronchitis (Acute) Influenza A (Acute) Constipation (Acute) PAUL (acute kidney injury) (Acute) Atrial flutter (Acute) Paroxysmal atrial fibrillation (Acute) Hyperlipidemia (Acute) PAUL. baseline creatinine is normal. UA reviewed. Qiu in hence chances of obstruction are low. PAUL is likely ATN due to severe sepsis, ARDS. Cr today is better. urine output is good Likely in recovery phase ok for lasix as needed INfluenza, pneumonia, ARDS. remains on vent. better O2 requirements d/w at bedside
--- NOTE | 2018-07-28 14:19 | PCM.PN.HOSP ---
Patient Problems: Active and Suspected Problems (Last Reviewed 07/20/18 @ 21:39 by Joaquín Laughlin DO) Acute bronchitis (Acute) Influenza A (Acute) Constipation (Acute) PAUL (acute kidney injury) (Acute) Atrial flutter (Acute) Subjective: Patient was seen and examined. Being weaned off paralytics. Remains in NSR Objective: Physical exam: General: Sedated, intubated, on mechanical ventilator HEENT: Atraumatic, PERRLA, EOMI, Normocephalic Oral: Dry Mucosa Neck: Supple, No JVD, Negative Carotid Bruits Lungs: Normal air movement, Diminished Cardiovascular: Regular rate, Normal S1, Normal S2, Irregular Rate, Tachycardic Abdomen: Bowel Sounds Present, Soft, Non-Distended, No Hepato-splenomegaly Extremities: Bilateral trace edema Skin: No rashes, No breakdown Musculoskeletal: No Tenderness to Palpation of Joints or Extremities Lymphatic: No Cervical, Supraclavicular, or Inguinal Adenopathy Neurological: Cranial nerves II-XII grossly intact, Neuro grossly intact Psych/Mental Status: Normal Affect, Appropriate Vitals/I&O's: Vital Signs Temp Pulse Resp BP Pulse Ox 99.8 F H 80 22 H 123/66 H 91 07/28/18 12:00 07/28/18 12:00 07/28/18 12:00 07/28/18 12:00 07/28/18 12:00 Oxygen Flow Rate (L/min) 15 Oxygen Delivery Method Mechanical Ventilator Weight: 118.4 kg Body Mass Index (BMI) 38.6 Intake and Output for Last 24 Hours 07/26/18 07/27/18 07/28/18 23:59 23:59 23:59 Intake Total 3849.7 / 3849.7 3951.8 / 3951.8 1754 / 1754 Output Total 1750 / 1750 2050 / 2050 3225 / 3225 Balance 2099.7 / 2099.7 1901.8 / 1901.8 -1471 / -1471 Microbiology Past 72 Hours 07/21/18 11:55 Blood Culture (Wb) - Right Hand Blood Culture - Final No growth in 5 days. 07/21/18 11:45 Blood Culture (Wb) - Anticubital Right Blood Culture - Final No growth in 5 days. 07/24/18 10:10 Sputum, Tracheal Aspirate Gram Stain - Final 07/24/18 10:10 Sputum, Tracheal Aspirate Respiratory Culture - Final Presumptive C albicans Laboratory Results 07/27/18 17:42: POC Glucose 315 H 07/27/18 18:30: APTT 76.0 H 07/27/18 21:45: POC Glucose 290 H 07/28/18 00:05: APTT 70.2 H 07/28/18 01:44: POC Glucose 248 H 07/28/18 04:30: WBC 9.5, RBC 3.89 L, Hgb 12.1 L, Hct 37.8 L, MCV 97.2 H, MCH 31.1, MCHC 32.0, RDW 13.8, RDW Differential 49.1 H, Plt Count 247, MPV 10.5, Neut % (Auto) Not Reportable, Absolute Neuts (auto) 8.2 H, Absolute Lymphs (auto) 0.76 L, Total Counted 100, Neutrophils % (Manual) 84 H, Band Neutrophils % 2, Lymphocytes % (Manual) 8 L, Monocytes % (Manual) 4, Eosinophils % (Manual) 1, Myelocytes % 1 H, Diff Path Review Reviewed 07/28/18 04:30: Sodium 143, Potassium 4.9, Chloride 109 H, Carbon Dioxide 27.0, Anion Gap 7, BUN 63 H, Creatinine 1.82 H, Estim Creat Clear Calc 39.15, Est GFR (MDRD) Af Amer 48 L, Est GFR (MDRD) Non-Af 40 L, BUN/Creatinine Ratio 34.6 H, Glucose 220 H, Calcium 8.0 L 07/28/18 04:30: APTT 66.6 H 07/28/18 05:25: POC Glucose 188 H 07/28/18 10:25: POC Glucose 175 H Current Medications Acetaminophen (Tylenol Liquid) 650 mg GT Q4H PRN PRN PRN Reason: FEVER Amiodarone HCl (Cordarone) 200 mg PO TID [facility] Stop: 07/30/18 22:01 Amiodarone HCl (Cordarone) 200 mg PO BID [facility] Stop: 08/13/18 22:01 Amiodarone HCl (Cordarone) 200 mg PO DAILY [facility] Aspirin (Aspirin, Baby) 81 mg GT DAILY@0800 [facility] Last Admin: 07/28/18 08:23 Dose: 81 mg Chlorhexidine Gluconate () 15 ml PO BID [facility] Last Admin: 07/28/18 10:32 Dose: 15 ml Chlorhexidine Gluconate () 1 each TOPICAL DAILY [facility] Last Admin: 07/28/18 03:35 Dose: 1 each Famotidine (Pepcid) 20 mg GT BID [facility] Last Admin: 07/28/18 08:23 Dose: 20 mg Folic Acid (Folic Acid) 1 mg GT DAILYCM [facility] Last Admin: 07/28/18 08:24 Dose: 1 mg Furosemide (Lasix) 40 mg IV BID@1000,1800 [facility] Last Admin: 07/28/18 06:50 Dose: 40 mg Heparin Sodium (Porcine) (Heparin Na) 0 unit IV UD PRN; Protocol Sodium Chloride () 250 mls @ 15 mls/hr IV .[id number] PRN PRN Reason: SALINE FLUSH Fentanyl () 100 mls @ 5 mls/hr IV .Q20H [facility] Last Admin: 07/28/18 11:02 Dose: 5 mls/hr Propofol (Diprivan) 1,000 mg in 100 mls @ 6.906 mls/hr CONT INF .Q12H [facility] Last Admin: 07/28/18 12:44 Dose: 6.906 mls/hr Enteral Nutritional Formula (Vital Af 1.2 Rick Liquid) 1,000 mls @ 60 mls/hr GT .[id number] [facility] Last Admin: 07/28/18 10:32 Dose: Not Given Heparin Sodium/Dextrose () 25,000 units in 250 mls @ 16 mls/hr IV .[id number] [facility]; Protocol Last Admin: 07/28/18 10:32 Dose: 16 mls/hr Insulin Glargine (Lantus (Bkc)) 80 units SC 06,18 [facility] Last Admin: 07/28/18 06:30 Dose: Not Given Insulin Human Lispro (Humalog Kwikpen (Bkc)) 0 unit SC Q4 [facility]; Protocol Last Admin: 07/28/18 10:37 Dose: 3 u Ipratropium [place] (Atrovent) 0.5 mg INHALATION Q4H.RT [facility] Last Admin: 07/28/18 10:52 Dose: 0.5 mg Magnesium Hydroxide (Milk Of Magnesia) 30 ml GT DAILY PRN PRN PRN Reason: Constipation Methylprednisolone (Solu-Medrol) 40 mg IV Q8 [facility] Last Admin: 07/28/18 05:15 Dose: 40 mg Metoclopramide HCl (Reglan) 5 mg IV Q6 [facility] Stop: 07/29/18 12:01 Ondansetron HCl (Zofran) 4 mg IV Q8H PRN PRN PRN Reason: NAUSEA Polyethylene Glycol (Miralax) 17 gm GT BID [facility] Last Admin: 07/28/18 08:24 Dose: 17 gm Pravastatin Sodium (Pravachol) 80 mg PO QHS [facility] Last Admin: 07/27/18 21:32 Dose: 80 mg Senna/Docusate Sodium (Senokot-S, Ankita-Colace) 2 tablet PO BID [facility] Last Admin: 07/28/18 08:23 Dose: 2 tablet Sodium Chloride () 5 - 15 ml IV UD PRN PRN Reason: SALINE FLUSH Last Admin: 07/28/18 06:50 Dose: 10 ml Sodium Chloride () 10 - 40 ml IV UD PRN PRN Reason: MULTILUMEN/HICMAN CATH FLUSH Last Admin: 07/28/18 10:33 Dose: 20 ml Medical Necessity - Tobacco Use Smoking Status: Former smoker Tobacco Use: Non-smoker Assessment/Plan All Active Problems (Last Reviewed 07/20/18 @ 21:39 by Joaquín Laughlin DO) Acute bronchitis (Acute) Influenza A (Acute) Constipation (Acute) PAUL (acute kidney injury) (Acute) Atrial flutter (Acute) Paroxysmal atrial fibrillation (Acute) Hyperlipidemia (Acute) 63-year-old male with multiple comorbidities including nicotine dependence, chronic atrial fibrillation status post ablation, CAD status post PCI admitted with fever, chills, cough shortness of breath ongoing for 6 days. Patient was found to be positive for influenza and his imaging had shown pneumonia. Patient had gotten worse and was transferred to the ICU, intubated, on mechanical ventilator. 1. A. fib/atrial flutter with RVR, status post DC cardioversion, Remains in NSR, on metoprolol only now, and IV heparin drip. 2. Acute hypoxic respiratory failure secondary to multifocal bilateral community-acquired pneumonia/acute influenza bronchitis/?ARDS Oxygen requirements appear to be improving, will continue to follow on recommendations of truck trailer final inspector 3. Acute influenza bronchitis, completed Tamiflu, continues to be on IV solumedrol, will continue to monitor. 4. CAP, multifocal, no fevers, blood cultures are negative, ID consulted, on IV Zosyn, ID consulted, last day of antibiotics is today. 5. PAUL likely multifactorial, secondary to ATN/severe sepsis, nonoliguric, improving now Nephrology following, labs in am. 6. Type 2 DM, BS better controlled now, secondary to IV steroids and medications with 5% dextrose and tube feeds, HgBA1c is 9.3, on Lantus 80mg BID as well as accucheks with ISS 7. CAD status post PCI, on aspirin 8. DVT prophylaxis - On Heparin drip Code Visit Inpatient E&M: [id number] Subs Hosp L3
--- NOTE | 2018-07-28 14:24 | PN_ITS ---
Patient Problems: Active and Suspected Problems (Last Reviewed 07/20/18 @ 21:39 by Joaquín Laughlin DO) Acute bronchitis (Acute) Influenza A (Acute) Constipation (Acute) PAUL (acute kidney injury) (Acute) Atrial flutter (Acute) Subjective: Patient was seen and examined. Being weaned off paralytics. Remains in NSR Objective: Physical exam: General: Sedated, intubated, on mechanical ventilator HEENT: Atraumatic, PERRLA, EOMI, Normocephalic Oral: Dry Mucosa Neck: Supple, No JVD, Negative Carotid Bruits Lungs: Normal air movement, Diminished Cardiovascular: Regular rate, Normal S1, Normal S2, Irregular Rate, Tachycardic Abdomen: Bowel Sounds Present, Soft, Non-Distended, No Hepato-splenomegaly Extremities: Bilateral trace edema Skin: No rashes, No breakdown Musculoskeletal: No Tenderness to Palpation of Joints or Extremities Lymphatic: No Cervical, Supraclavicular, or Inguinal Adenopathy Neurological: Cranial nerves II-XII grossly intact, Neuro grossly intact Psych/Mental Status: Normal Affect, Appropriate Vitals/I&O's: Vital Signs Temp Pulse Resp BP Pulse Ox 99.8 F H 80 22 H 123/66 H 91 07/28/18 12:00 07/28/18 12:00 07/28/18 12:00 07/28/18 12:00 07/28/18 12:00 Oxygen Flow Rate (L/min) 15 Oxygen Delivery Method Mechanical Ventilator Weight: 118.4 kg Body Mass Index (BMI) 38.6 Intake and Output for Last 24 Hours 07/26/18 07/27/18 07/28/18 23:59 23:59 23:59 Intake Total 3849.7 / 3849.7 3951.8 / 3951.8 1754 / 1754 Output Total 1750 / 1750 2050 / 2050 3225 / 3225 Balance 2099.7 / 2099.7 1901.8 / 1901.8 -1471 / -1471 Microbiology Past 72 Hours 07/21/18 11:55 Blood Culture (Wb) - Right Hand Blood Culture - Final No growth in 5 days. 07/21/18 11:45 Blood Culture (Wb) - Anticubital Right Blood Culture - Final No growth in 5 days. 07/24/18 10:10 Sputum, Tracheal Aspirate Gram Stain - Final 07/24/18 10:10 Sputum, Tracheal Aspirate Respiratory Culture - Final Presumptive C albicans Laboratory Results 07/27/18 17:42: POC Glucose 315 H 07/27/18 18:30: APTT 76.0 H 07/27/18 21:45: POC Glucose 290 H 07/28/18 00:05: APTT 70.2 H 07/28/18 01:44: POC Glucose 248 H 07/28/18 04:30: WBC 9.5, RBC 3.89 L, Hgb 12.1 L, Hct 37.8 L, MCV 97.2 H, MCH 31.1, MCHC 32.0, RDW 13.8, RDW Differential 49.1 H, Plt Count 247, MPV 10.5, Neut % (Auto) Not Reportable, Absolute Neuts (auto) 8.2 H, Absolute Lymphs (auto) 0.76 L, Total Counted 100, Neutrophils % (Manual) 84 H, Band Neutrophils % 2, Lymphocytes % (Manual) 8 L, Monocytes % (Manual) 4, Eosinophils % (Manual) 1, Myelocytes % 1 H, Diff Path Review Reviewed 07/28/18 04:30: Sodium 143, Potassium 4.9, Chloride 109 H, Carbon Dioxide 27.0, Anion Gap 7, BUN 63 H, Creatinine 1.82 H, Estim Creat Clear Calc 39.15, Est GFR (MDRD) Af Amer 48 L, Est GFR (MDRD) Non-Af 40 L, BUN/Creatinine Ratio 34.6 H, Glucose 220 H, Calcium 8.0 L 07/28/18 04:30: APTT 66.6 H 07/28/18 05:25: POC Glucose 188 H 07/28/18 10:25: POC Glucose 175 H Current Medications Acetaminophen (Tylenol Liquid) 650 mg GT Q4H PRN PRN PRN Reason: FEVER Amiodarone HCl (Cordarone) 200 mg PO TID [facility] Stop: 07/30/18 22:01 Amiodarone HCl (Cordarone) 200 mg PO BID [facility] Stop: 08/13/18 22:01 Amiodarone HCl (Cordarone) 200 mg PO DAILY [facility] Aspirin (Aspirin, Baby) 81 mg GT DAILY@0800 [facility] Last Admin: 07/28/18 08:23 Dose: 81 mg Chlorhexidine Gluconate () 15 ml PO BID [facility] Last Admin: 07/28/18 10:32 Dose: 15 ml Chlorhexidine Gluconate () 1 each TOPICAL DAILY [facility] Last Admin: 07/28/18 03:35 Dose: 1 each Famotidine (Pepcid) 20 mg GT BID [facility] Last Admin: 07/28/18 08:23 Dose: 20 mg Folic Acid (Folic Acid) 1 mg GT DAILYCM [facility] Last Admin: 07/28/18 08:24 Dose: 1 mg Furosemide (Lasix) 40 mg IV BID@1000,1800 [facility] Last Admin: 07/28/18 06:50 Dose: 40 mg Heparin Sodium (Porcine) (Heparin Na) 0 unit IV UD PRN; Protocol Sodium Chloride () 250 mls @ 15 mls/hr IV .[id number] PRN PRN Reason: SALINE FLUSH Fentanyl () 100 mls @ 5 mls/hr IV .Q20H [facility] Last Admin: 07/28/18 11:02 Dose: 5 mls/hr Propofol (Diprivan) 1,000 mg in 100 mls @ 6.906 mls/hr CONT INF .Q12H [facility] Last Admin: 07/28/18 12:44 Dose: 6.906 mls/hr Enteral Nutritional Formula (Vital Af 1.2 Rick Liquid) 1,000 mls @ 60 mls/hr GT .[id number] [facility] Last Admin: 07/28/18 10:32 Dose: Not Given Heparin Sodium/Dextrose () 25,000 units in 250 mls @ 16 mls/hr IV .[id number] [facility]; Protocol Last Admin: 07/28/18 10:32 Dose: 16 mls/hr Insulin Glargine (Lantus (Bkc)) 80 units SC 06,18 [facility] Last Admin: 07/28/18 06:30 Dose: Not Given Insulin Human Lispro (Humalog Kwikpen (Bkc)) 0 unit SC Q4 [facility]; Protocol Last Admin: 07/28/18 10:37 Dose: 3 u Ipratropium [place] (Atrovent) 0.5 mg INHALATION Q4H.RT [facility] Last Admin: 07/28/18 10:52 Dose: 0.5 mg Magnesium Hydroxide (Milk Of Magnesia) 30 ml GT DAILY PRN PRN PRN Reason: Constipation Methylprednisolone (Solu-Medrol) 40 mg IV Q8 [facility] Last Admin: 07/28/18 05:15 Dose: 40 mg Metoclopramide HCl (Reglan) 5 mg IV Q6 [facility] Stop: 07/29/18 12:01 Ondansetron HCl (Zofran) 4 mg IV Q8H PRN PRN PRN Reason: NAUSEA Polyethylene Glycol (Miralax) 17 gm GT BID [facility] Last Admin: 07/28/18 08:24 Dose: 17 gm Pravastatin Sodium (Pravachol) 80 mg PO QHS [facility] Last Admin: 07/27/18 21:32 Dose: 80 mg Senna/Docusate Sodium (Senokot-S, Ankita-Colace) 2 tablet PO BID [facility] Last Admin: 07/28/18 08:23 Dose: 2 tablet Sodium Chloride () 5 - 15 ml IV UD PRN PRN Reason: SALINE FLUSH Last Admin: 07/28/18 06:50 Dose: 10 ml Sodium Chloride () 10 - 40 ml IV UD PRN PRN Reason: MULTILUMEN/HICMAN CATH FLUSH Last Admin: 07/28/18 10:33 Dose: 20 ml Medical Necessity - Tobacco Use Smoking Status: Former smoker Tobacco Use: Non-smoker Assessment/Plan All Active Problems (Last Reviewed 07/20/18 @ 21:39 by Joaquín Laughlin DO) Acute bronchitis (Acute) Influenza A (Acute) Constipation (Acute) PAUL (acute kidney injury) (Acute) Atrial flutter (Acute) Paroxysmal atrial fibrillation (Acute) Hyperlipidemia (Acute) 63-year-old male with multiple comorbidities including nicotine dependence, chronic atrial fibrillation status post ablation, CAD status post PCI admitted with fever, chills, cough shortness of breath ongoing for 6 days. Patient was found to be positive for influenza and his imaging had shown pneumonia. Patient had gotten worse and was transferred to the ICU, intubated, on mechanical ventilator. 1. A. fib/atrial flutter with RVR, status post DC cardioversion, Remains in NSR, on metoprolol only now, and IV heparin drip. 2. Acute hypoxic respiratory failure secondary to multifocal bilateral community-acquired pneumonia/acute influenza bronchitis/?ARDS Oxygen requirements appear to be improving, will continue to follow on recommendations of core assembly supervisor 3. Acute influenza bronchitis, completed Tamiflu, continues to be on IV solumedrol, will continue to monitor. 4. CAP, multifocal, no fevers, blood cultures are negative, ID consulted, on IV Zosyn, ID consulted, last day of antibiotics is today. 5. PAUL likely multifactorial, secondary to ATN/severe sepsis, nonoliguric, improving now Nephrology following, labs in am. 6. Type 2 DM, BS better controlled now, secondary to IV steroids and medications with 5% dextrose and tube feeds, HgBA1c is 9.3, on Lantus 80mg BID as well as accucheks with ISS 7. CAD status post PCI, on aspirin 8. DVT prophylaxis - On Heparin drip Code Visit Inpatient E&M: [id number] Subs Hosp L3
[2018-07-28 16:06] LABS: Bedside Glucose 85 mg/dL (70-110)
[2018-07-28 19:21] LABS: Bedside Glucose 74 mg/dL (70-110)
[2018-07-28] MEDS: Dextrose 50%-Water 25 GM/50 ML DISP.SYRIN IV (19:45)
[2018-07-28] MEDS: dilTIAZem 25 MG/5 ML Vial 10 MG IV BOLUS (19:51)
[2018-07-28 20:31] LABS: Bedside Glucose 204 mg/dL (70-110)
[2018-07-28] MEDS: Pravastatin 80 MG Tablet PO (21:31)
[2018-07-28 21:40] LABS: Bedside Glucose 66 mg/dL (70-110)
[2018-07-28 22:06] LABS: Bedside Glucose 149 mg/dL (70-110)
[2018-07-29] VITALS (50 sets, daily range): BP systolic 92–178; BP diastolic 55–101; PULSE 52–955; RESP 15–24; TEMP 36.2–37.4; O2SAT 90–94
[2018-07-29] MEDS: 0.9% NaCl Peripheral Flush Adult/Peds IV ×4 (00:05→14:06)
[2018-07-29] MEDS: Metoclopramide 10 MG/2 ML Vial 5 MG IV ×3 (00:05→11:45)
[2018-07-29] MEDS: fentaNYL drip 100 ML 5 MCG IV ×4 (00:11→18:44)
[2018-07-29] MEDS: Propofol 10MG/Ml 1,000 MG/100 ML Bottle 6.906 MG CONT INF ×6 (00:36→20:12)
[2018-07-29] MEDS: Insulin Lispro 100 UNIT/ML INSULN.PEN SC ×5 (02:29→23:04)
[2018-07-29] MEDS: CHLORHEXIDINE GLUC 2% CLOTH 1 EACH TOWELETTE TOPICAL (02:31)
[2018-07-29 02:36] LABS: Bedside Glucose 192 mg/dL (70-110)
[2018-07-29] MEDS: Ipratropium 0.5 MG/2.5 ML SOLUTION INHALATION ×6 (04:09→23:28)
[2018-07-29 04:32] LABS: Hematocrit 42.7 % (40-54); Hemoglobin 13.8 g/dl (13.0-16.5); Mean Corp Hgb Conc 32.3 g/gl (32-36); Mean Corpuscular Hgb 30.9 pg (27.0-32.0); Mean Corpuscular Volume 95.5 fL (80-94); Mean Platelet Vol. 10.7 fl (6.2-12.0); Platelet Count 301 K/mm3 (150-450); RBC Distribution Width CV 13.7 % (11.6-14.6); RBC Distribution Width SD 47.6 fl (35.1-43.9); Red Blood Count 4.47 M/mm3 (4.6-6.2); White Blood Count 13.6 K/mm3 (4.4-11.0)
[2018-07-29 04:33] LABS: Scan Indicated on CBC? Y/N NO
[2018-07-29 04:44] LABS: Partial Thromboplast Time 47.3 Seconds (24.1-36.2)
[2018-07-29 04:47] LABS: Anion Gap 9 (5-15); BUN 67 mg/dL (7-18); BUN/Creat Ratio 37.2 RATIO (10-20); Calcium,Total 8.2 mg/dL (8.5-10.1); Chloride 106 mmol/L (98-107); EST Glomerular Filtration Rate 40 mL/min (>60); Est Glom Filt Rate - Afr Amer 49 mL/min (>60); Estimated Creatinine Clearance 39.58 ml/min; Glucose 186 mg/dL (74-106); Potassium 4.5 mmol/L (3.5-5.1); Sodium Level 145 mmol/L (136-145)
[2018-07-29] MEDS: Heparin Injection (Vial) 5,000 UNIT/ML VIAL IV ×2 (05:07→15:09)
[2018-07-29] MEDS: Amiodarone 200 MG Tablet PO ×2 (05:35→11:47)
[2018-07-29 05:46] LABS: Bedside Glucose 145 mg/dL (70-110)
--- NOTE | 2018-07-29 05:55 | RAD_ITS ---
STUDY: X-RAY - ABDOMEN/PELVIS REASON FOR EXAM: Male, 63 years old. Constipation. TECHNIQUE: Single AP view of the abdomen / pelvis. COMPARISON: None. FINDINGS: There is a nasogastric tube with its tip in the gastric antrum region. There are nonspecific gaseous bowel loops. The visualized liver, spleen and kidneys are grossly normal in size . Normal soft tissue structures. There are degenerative changes in the lower lumbar spine. RAD/Abdomen Single View (Portable) IMPRESSION: Nasogastric tube with its tip in the region of the stomach. Nonspecific gas pattern. Electronically Signed: Emmett Anaya MD at 8:37 EST Tel , Service support ,
--- NOTE | 2018-07-29 06:24 | PCM.PN.INT ---
Subjective: The patient was seen and examined at the bedside this morning. Events from the last 24 hours have been reviewed. The patient is currently afebrile. He did, however, go back into atrial fibrillation yesterday. He was subsequently placed back on a Cardizem infusion. Creatinine is stable this morning. He was documented to be overall net -2.7 L yesterday, after being started on twice daily Lasix. He is now documented to be overall net +9.4 L for the admission. Overnight, the patient did convert back into normal sinus rhythm. He remains on propofol at 35 mg and fentanyl at 175 mcg. He has still not yet had a bowel movement. As of this morning, the patient's FiO2 has been weaned to 45% and his PEEP is currently down to 8. Objective: The patient's most recent lab work, culture data and imaging studies have all been personally reviewed. Chest imaging studies have all revealed significant multifocal bilateral infiltrates. Surface echocardiogram revealed mild concentric LVH with an ejection fraction of 55% and stage II diastolic dysfunction. Pulmonary artery systolic pressure was estimated to be 26 mmHg. The patient's rapid influenza screen was positive for influenza A. The remainder of his infectious workup, including sputum cultures have been unrevealing to date. General: - - Remains intubated, sedated and mechanically ventilated. HEENT: Atraumatic, PERRLA, Normocephalic Oral: No Gingival or Mucosal Lesions/ Ulcerations, - - Endotracheal and OG tubes remain in place Neck: Supple, No Nodes, Trachea Midline Lungs: No rhonchi, No wheeze, No rales, Diminished, - - No ventilator dyssynchrony noted. Cardiovascular: Regular rate, Regular Rhythm, Normal S1, Normal S2, No murmurs, - - Currently in normal sinus rhythm. Abdomen: Soft, Non Tender, Non-Distended, Hypoactive Bowel Sounds, Obese Extremities: No clubbing, No cyanosis, Edema - Trace pedal Skin: No breakdown Musculoskeletal: No Tenderness to Palpation of Joints or Extremities, No Muscle Wasting Lymphatic: No Cervical, Supraclavicular, or Inguinal Adenopathy Neurological: - - Remains heavily sedated. Vital Signs Temp Pulse Resp BP Pulse Ox 37.2 C 85 16 158/76 H 92 07/29/18 04:00 07/29/18 06:00 07/29/18 06:00 07/29/18 06:00 07/29/18 06:00 Oxygen Flow Rate (L/min) 15 Oxygen Delivery Method Mechanical Ventilator Weight: 253 lb 12.033 oz Body Mass Index (BMI) 38.6 Intake and Output for Last 24 Hours 07/27/18 07/28/18 07/29/18 23:59 23:59 23:59 Intake Total 3951.8 / 3951.8 3140 / 3140 406.6 / 406.6 Output Total 2050 / 2050 5925 / 5925 700 / 700 Balance 1901.8 / 1901.8 -2785 / -2785 -293.4 / -293.4 Labs (Last 48 Hours) 07/27/18 07/27/18 07/27/18 05:30 05:45 09:35 WBC 9.7 RBC 3.88 L Hgb 12.1 L Hct 38.8 L MCV 100.0 H MCH 31.2 MCHC 31.2 L RDW 13.5 RDW Differential 49.3 H Plt Count 236 MPV 10.9 Neut % (Auto) Not Reportable Absolute Neuts (auto) 8.7 H Absolute Lymphs (auto) 0.39 L Total Counted 100 Neutrophils % (Manual) 89 H Band Neutrophils % 1 Lymphocytes % (Manual) 4 L Monocytes % (Manual) 5 Eosinophils % (Manual) Metamyelocytes % 1 Myelocytes % Diff Path Review Reviewed Platelet Estimate ADEQUATE Plt Morphology Comment LARGE Polychromasia RARE Macrocytosis 1+ APTT Sodium Potassium Chloride Carbon Dioxide Anion Gap BUN Creatinine Estim Creat Clear Calc Est GFR (MDRD) Af Amer Est GFR (MDRD) Non-Af BUN/Creatinine Ratio Glucose Calcium POC Glucose 306 H 314 H 07/27/18 07/27/18 07/27/18 11:35 13:25 17:42 WBC RBC Hgb Hct MCV MCH MCHC RDW RDW Differential Plt Count MPV Neut % (Auto) Absolute Neuts (auto) Absolute Lymphs (auto) Total Counted Neutrophils % (Manual) Band Neutrophils % Lymphocytes % (Manual) Monocytes % (Manual) Eosinophils % (Manual) Metamyelocytes % Myelocytes % Diff Path Review Platelet Estimate Plt Morphology Comment Polychromasia Macrocytosis APTT 86.5 H Sodium Potassium Chloride Carbon Dioxide Anion Gap BUN Creatinine Estim Creat Clear Calc Est GFR (MDRD) Af Amer Est GFR (MDRD) Non-Af BUN/Creatinine Ratio Glucose Calcium POC Glucose 303 H 315 H 07/27/18 07/27/18 07/28/18 18:30 21:45 00:05 WBC RBC Hgb Hct MCV MCH MCHC RDW RDW Differential Plt Count MPV Neut % (Auto) Absolute Neuts (auto) Absolute Lymphs (auto) Total Counted Neutrophils % (Manual) Band Neutrophils % Lymphocytes % (Manual) Monocytes % (Manual) Eosinophils % (Manual) Metamyelocytes % Myelocytes % Diff Path Review Platelet Estimate Plt Morphology Comment Polychromasia Macrocytosis APTT 76.0 H 70.2 H Sodium Potassium Chloride Carbon Dioxide Anion Gap BUN Creatinine Estim Creat Clear Calc Est GFR (MDRD) Af Amer Est GFR (MDRD) Non-Af BUN/Creatinine Ratio Glucose Calcium POC Glucose 290 H 07/28/18 07/28/18 07/28/18 01:44 04:30 04:30 WBC 9.5 RBC 3.89 L Hgb 12.1 L Hct 37.8 L MCV 97.2 H MCH 31.1 MCHC 32.0 RDW 13.8 RDW Differential 49.1 H Plt Count 247 MPV 10.5 Neut % (Auto) Not Reportable Absolute Neuts (auto) 8.2 H Absolute Lymphs (auto) 0.76 L Total Counted 100 Neutrophils % (Manual) 84 H Band Neutrophils % 2 Lymphocytes % (Manual) 8 L Monocytes % (Manual) 4 Eosinophils % (Manual) 1 Metamyelocytes % Myelocytes % 1 H Diff Path Review Reviewed Platelet Estimate Plt Morphology Comment Polychromasia Macrocytosis APTT Sodium 143 Potassium 4.9 Chloride 109 H Carbon Dioxide 27.0 Anion Gap 7 BUN 63 H Creatinine 1.82 H Estim Creat Clear Calc 39.15 Est GFR (MDRD) Af Amer 48 L Est GFR (MDRD) Non-Af 40 L BUN/Creatinine Ratio 34.6 H Glucose 220 H Calcium 8.0 L POC Glucose 248 H 07/28/18 07/28/18 07/28/18 04:30 05:25 10:25 WBC RBC Hgb Hct MCV MCH MCHC RDW RDW Differential Plt Count MPV Neut % (Auto) Absolute Neuts (auto) Absolute Lymphs (auto) Total Counted Neutrophils % (Manual) Band Neutrophils % Lymphocytes % (Manual) Monocytes % (Manual) Eosinophils % (Manual) Metamyelocytes % Myelocytes % Diff Path Review Platelet Estimate Plt Morphology Comment Polychromasia Macrocytosis APTT 66.6 H Sodium Potassium Chloride Carbon Dioxide Anion Gap BUN Creatinine Estim Creat Clear Calc Est GFR (MDRD) Af Amer Est GFR (MDRD) Non-Af BUN/Creatinine Ratio Glucose Calcium POC Glucose 188 H 175 H 07/28/18 07/28/18 07/28/18 16:02 18:00 18:12 WBC RBC Hgb Hct MCV MCH MCHC RDW RDW Differential Plt Count MPV Neut % (Auto) Absolute Neuts (auto) Absolute Lymphs (auto) Total Counted Neutrophils % (Manual) Band Neutrophils % Lymphocytes % (Manual) Monocytes % (Manual) Eosinophils % (Manual) Metamyelocytes % Myelocytes % Diff Path Review Platelet Estimate Plt Morphology Comment Polychromasia Macrocytosis APTT Sodium Potassium Chloride Carbon Dioxide Anion Gap BUN Creatinine Estim Creat Clear Calc Est GFR (MDRD) Af Amer Est GFR (MDRD) Non-Af BUN/Creatinine Ratio Glucose Calcium POC Glucose 85 66 L 74 07/28/18 07/28/18 07/29/18 20:01 22:01 02:28 WBC RBC Hgb Hct MCV MCH MCHC RDW RDW Differential Plt Count MPV Neut % (Auto) Absolute Neuts (auto) Absolute Lymphs (auto) Total Counted Neutrophils % (Manual) Band Neutrophils % Lymphocytes % (Manual) Monocytes % (Manual) Eosinophils % (Manual) Metamyelocytes % Myelocytes % Diff Path Review Platelet Estimate Plt Morphology Comment Polychromasia Macrocytosis APTT Sodium Potassium Chloride Carbon Dioxide Anion Gap BUN Creatinine Estim Creat Clear Calc Est GFR (MDRD) Af Amer Est GFR (MDRD) Non-Af BUN/Creatinine Ratio Glucose Calcium POC Glucose 204 H 149 H 192 H 07/29/18 07/29/18 07/29/18 04:20 04:20 04:20 WBC 13.6 H RBC 4.47 L Hgb 13.8 Hct 42.7 MCV 95.5 H MCH 30.9 MCHC 32.3 RDW 13.7 RDW Differential 47.6 H Plt Count 301 MPV 10.7 Neut % (Auto) Absolute Neuts (auto) Absolute Lymphs (auto) Total Counted Neutrophils % (Manual) Band Neutrophils % Lymphocytes % (Manual) Monocytes % (Manual) Eosinophils % (Manual) Metamyelocytes % Myelocytes % Diff Path Review Platelet Estimate Plt Morphology Comment Polychromasia Macrocytosis APTT 47.3 H Sodium 145 Potassium 4.5 Chloride 106 Carbon Dioxide 30.0 Anion Gap 9 BUN 67 H Creatinine 1.80 H Estim Creat Clear Calc 39.58 Est GFR (MDRD) Af Amer 49 L Est GFR (MDRD) Non-Af 40 L BUN/Creatinine Ratio 37.2 H Glucose 186 H Calcium 8.2 L POC Glucose 07/29/18 05:31 WBC RBC Hgb Hct MCV MCH MCHC RDW RDW Differential Plt Count MPV Neut % (Auto) Absolute Neuts (auto) Absolute Lymphs (auto) Total Counted Neutrophils % (Manual) Band Neutrophils % Lymphocytes % (Manual) Monocytes % (Manual) Eosinophils % (Manual) Metamyelocytes % Myelocytes % Diff Path Review Platelet Estimate Plt Morphology Comment Polychromasia Macrocytosis APTT Sodium Potassium Chloride Carbon Dioxide Anion Gap BUN Creatinine Estim Creat Clear Calc Est GFR (MDRD) Af Amer Est GFR (MDRD) Non-Af BUN/Creatinine Ratio Glucose Calcium POC Glucose 145 H Clinical Impression(s) from Imaging Studies KUB X-Ray 07/20/18 18:41 IMPRESSION: No evidence of obstruction or perforation. at 2002 Reported and signed by: Salinas Noriega MD Electronically Signed: Salinas Noriega, at 20:02 EST Tel , Service support , Chest X-Ray 07/20/18 19:30 IMPRESSION: No radiographic evidence of acute cardiopulmonary disease. at 2002 Reported and signed by: Salinas Noriega MD Electronically Signed: Salinas Noriega, at 20:02 EST Tel , Service support , Abdomen X-Ray 07/21/18 11:07 IMPRESSION: Diffuse distention of bowel most likely ileus. Distal colonic obstruction not likely but possible. at 0143 Reported and signed by: Salinas Noriega MD Electronically Signed: Salinas Noriega, at 1:42 EST Tel , Service support , Chest X-Ray 07/22/18 09:37 IMPRESSION: Findings concerning for multifocal pneumonia in the appropriate clinical setting with underlying alveolar edema not completely excluded. Recommend follow-up imaging in 4-6 weeks after appropriate treatment. Electronically Signed: Pacheco Galo DO at 9:56 EST , Service support , Chest CTA 07/22/18 17:51 IMPRESSION: No pulmonary embolus. Multifocal bilateral airspace disease in the lungs similar to the most recent chest radiograph but increased compared to 07/20/18 compatible with multifocal pneumonia versus a noninfectious inflammatory pneumonitis. Small, 4.0 cm, ascending thoracic aortic aneurysm with no hemorrhage or dissection. Individualized dose optimization techniques were used for this CT. at 1927 Reported and signed by: Salinas Noriega MD Electronically Signed: Salinas Noriega, at 19:26 EST Tel , Service support , Chest X-Ray 07/24/18 08:42 IMPRESSION: Progressive bilateral airspace disease. The tip of the endotracheal tube is at 4.1 cm proximal to the sunshine. The tip of the orogastric tube is in the body of the stomach. Electronically Signed: Shar Castillo, at 14:18 EST , Service support , Chest X-Ray 07/25/18 08:20 IMPRESSION: Since prior study, there has been improved aeration of both lungs although residual bilateral airspace disease is seen. Electronically Signed: Shar Castillo, at 9:08 EST , Service support , Chest X-Ray 07/28/18 06:29 IMPRESSION: Since prior study, there has been mild improvement of the aeration of both lungs. Residual bilateral patchy infiltrates are seen. Electronically Signed: Shar Castillo, at 8:22 EST , Service support , Medical Necessity - Tobacco Use Smoking Status: Former smoker Tobacco Use: Non-smoker Assessment/Plan All Active Problems (Last Reviewed 07/20/18 @ 21:39 by Joaquín Laughlin DO) Acute bronchitis (Acute) Influenza A (Acute) Constipation (Acute) PAUL (acute kidney injury) (Acute) Atrial flutter (Acute) Paroxysmal atrial fibrillation (Acute) Hyperlipidemia (Acute) RECOMMENDATIONS: 1. Continue current supportive measures with lung protective ventilatory strategy. 2. Wean FiO2 and PEEP to maintain an oxygen saturation at or above 90%. 3. Continue volume optimization with IV diuretics as ordered. 4. Slowly wean sedative medications. 5. Attempt to resume tube feeds. 6. Further escalation in bowel regimen is necessary 7. Continue scheduled aerosol treatments and appropriate ICU prophylaxis. 8. Continue heparin drip and rate/rhythm control strategy per cardiology recommendations. IMPRESSIONS: 1. Acute hypoxemic respiratory failure secondary to influenza A infection and severe community-acquired pneumonia/evolving ARDS The patient has a questionable baseline history of COPD. He was seen in the pulmonary medicine clinic 1 year ago, at which time, pulmonary function studies were ordered. However, the patient never followed up. Although the patient was admitted to the hospital with influenza A and a plain film chest x-ray which was largely unremarkable, follow-up chest imaging subsequently revealed evidence of evolving multifocal pneumonia. The patient has essentially gone on to develop full-blown ARDS. He did require intubation on the morning of July 24. He will be maintained on a lung protective ventilator strategy. We will continue to wean FiO2 and PEEP to maintain an oxygen saturation at or above 90%. We will continue scheduled Atrovent and steroids as ordered. The patient's sedation regimen will be cautiously weaned as tolerated. IV diuretics will be continued as ordered. The patient has already completed his course of Tamiflu and antibiotics. 2. New onset atrial flutter with rapid ventricular rate The patient did require bedside cardioversion on July 26. We will plan to continue current medical management per cardiology recommendations. 3. Acute kidney injury Improving. Nephrology is currently following. Avoid nephrotoxic agents. Continue to monitor urine output. No current indication for renal replacement therapy. 4. Known history of pulmonary nodules The patient is actually past due for a repeat CT chest due to his previously identified pulmonary nodules in March 2017. 5. Obstructive sleep apnea The patient is currently noncompliant with the use of nocturnal noninvasive positive pressure ventilation. 6. Rheumatoid arthritis/atrial fibrillation status post ablation/coronary artery disease/tobacco dependency currently in remission Complicates care, management, recovery and prognosis. Continue home medications as indicated. Continue basal and sliding scale insulin regimen. Physical therapy to work with patient, once medically stabilized. TIME: 45 minutes of critical care time, independent of procedures, was spent addressing the patient's acute hypoxemic respiratory failure, influenza A infection, severe community-acquired pneumonia, ARDS, acute kidney injury, new onset atrial flutter with rapid ventricular rate, history of pulmonary nodules, obstructive sleep apnea, review of all data and collaboration with the care team. ([id number]) Code Visit 9xxxx: [id number] Critical care first hour
--- NOTE | 2018-07-29 07:34 | PCM.PN.HOSP ---
Patient Problems: Active and Suspected Problems (Last Reviewed 07/20/18 @ 21:39 by Joaquín Laughlin DO) Acute bronchitis (Acute) Influenza A (Acute) Constipation (Acute) PAUL (acute kidney injury) (Acute) Atrial flutter (Acute) Subjective: Patient was seen and examined. His oxygen requirement have decreased, generally appears to be doing better. Remains intubated. He went into [facility] with RVR last night Objective: hysical exam: General: Sedated, intubated, on mechanical ventilator HEENT: Atraumatic, PERRLA, EOMI, Normocephalic Oral: Dry Mucosa Neck: Supple, No JVD, Negative Carotid Bruits Lungs: Normal air movement, Diminished Cardiovascular: Regular rate, Normal S1, Normal S2, Irregular Rate, Tachycardic Abdomen: Bowel Sounds Present, Soft, Non-Distended, No Hepato-splenomegaly Extremities: Bilateral trace edema Skin: No rashes, No breakdown Musculoskeletal: No Tenderness to Palpation of Joints or Extremities Lymphatic: No Cervical, Supraclavicular, or Inguinal Adenopathy Neurological: Cranial nerves II-XII grossly intact, Neuro grossly intact Psych/Mental Status: Normal Affect, Appropriate Vitals/I&O's: Vital Signs Temp Pulse Resp BP Pulse Ox 98.9 F 85 16 158/76 H 92 07/29/18 04:00 07/29/18 06:00 07/29/18 06:00 07/29/18 06:00 07/29/18 06:00 Oxygen Flow Rate (L/min) 15 Oxygen Delivery Method Mechanical Ventilator Weight: 115.1 kg Body Mass Index (BMI) 38.6 Intake and Output for Last 24 Hours 07/27/18 07/28/18 07/29/18 23:59 23:59 23:59 Intake Total 3951.8 / 3951.8 3140 / 3140 406.6 / 406.6 Output Total 2049 / 2049 5925 / 5925 700 / 700 Balance 1901.8 / 1901.8 -2785 / -2785 -293.4 / -293.4 Microbiology Past 72 Hours 07/21/18 11:55 Blood Culture (Wb) - Right Hand Blood Culture - Final No growth in 5 days. 07/21/18 11:45 Blood Culture (Wb) - Anticubital Right Blood Culture - Final No growth in 5 days. 07/24/18 10:10 Sputum, Tracheal Aspirate Gram Stain - Final 07/24/18 10:10 Sputum, Tracheal Aspirate Respiratory Culture - Final Presumptive C albicans Laboratory Results 07/28/18 04:30: Diff Path Review Reviewed 07/28/18 10:25: POC Glucose 175 H 07/28/18 16:02: POC Glucose 85 07/28/18 18:00: POC Glucose 66 L 07/28/18 18:12: POC Glucose 74 07/28/18 20:01: POC Glucose 204 H 07/28/18 22:01: POC Glucose 149 H 07/29/18 02:28: POC Glucose 192 H 07/29/18 04:20: Sodium 145, Potassium 4.5, Chloride 106, Carbon Dioxide 30.0, Anion Gap 9, BUN 67 H, Creatinine 1.80 H, Estim Creat Clear Calc 39.58, Est GFR (MDRD) Af Amer 49 L, Est GFR (MDRD) Non-Af 40 L, BUN/Creatinine Ratio 37.2 H, Glucose 186 H, Calcium 8.2 L 07/29/18 04:20: WBC 13.6 H, RBC 4.47 L, Hgb 13.8, Hct 42.7, MCV 95.5 H, MCH 30.9, MCHC 32.3, RDW 13.7, RDW Differential 47.6 H, Plt Count 301, MPV 10.7 07/29/18 04:20: APTT 47.3 H 07/29/18 05:31: POC Glucose 145 H Current Medications Acetaminophen (Tylenol Liquid) 650 mg GT Q4H PRN PRN PRN Reason: FEVER Amiodarone HCl (Cordarone) 200 mg PO TID [facility] Stop: 07/30/18 22:01 Last Admin: 07/29/18 05:35 Dose: 200 mg Amiodarone HCl (Cordarone) 200 mg PO BID [facility] Stop: 08/13/18 22:01 Amiodarone HCl (Cordarone) 200 mg PO DAILY [facility] Aspirin (Aspirin, Baby) 81 mg GT DAILY@0800 [facility] Last Admin: 07/28/18 08:23 Dose: 81 mg Chlorhexidine Gluconate () 15 ml PO BID [facility] Last Admin: 07/28/18 21:31 Dose: 15 ml Chlorhexidine Gluconate () 1 each TOPICAL DAILY [facility] Last Admin: 07/29/18 02:31 Dose: 1 each Dextrose (D50w Syringe) 0 gm IV X1 PRN; Protocol PRN Reason: Hypoglycemia Famotidine (Pepcid) 20 mg GT BID [facility] Last Admin: 07/28/18 21:31 Dose: 20 mg Folic Acid (Folic Acid) 1 mg GT DAILYCM [facility] Last Admin: 07/28/18 08:24 Dose: 1 mg Furosemide (Lasix) 40 mg IV BID@1000,1800 [facility] Last Admin: 07/28/18 18:48 Dose: 40 mg Glucagon () 1 mg IM .X1 PRN PRN Reason: Hypoglycemia Heparin Sodium (Porcine) (Heparin Na) 0 unit IV UD PRN; Protocol Last Admin: 07/29/18 05:07 Dose: 1,000 unit Sodium Chloride () 250 mls @ 15 mls/hr IV .[id number] PRN PRN Reason: SALINE FLUSH Fentanyl () 100 mls @ 5 mls/hr IV .Q20H [facility] Last Admin: 07/29/18 05:45 Dose: 5 mls/hr Propofol (Diprivan) 1,000 mg in 100 mls @ 6.906 mls/hr CONT INF .Q12H [facility] Last Admin: 07/29/18 03:59 Dose: 6.906 mls/hr Enteral Nutritional Formula (Vital Af 1.2 Rick Liquid) 1,000 mls @ 60 mls/hr GT .[id number] [facility] Last Admin: 07/29/18 02:31 Dose: Not Given Heparin Sodium/Dextrose () 25,000 units in 250 mls @ 16 mls/hr IV .[id number] [facility]; Protocol Last Admin: 07/29/18 00:12 Dose: Not Given Diltiazem HCl 125 mg/ Dextrose 125 mls @ 5 mls/hr IV .Q25H [facility]; Protocol Last Admin: 07/28/18 20:21 Dose: 5 mls/hr Insulin Glargine (Lantus (Bkc)) 80 units SC 06,18 [facility] Last Admin: 07/29/18 06:36 Dose: Not Given Insulin Human Lispro (Humalog Kwikpen (Bk)) 0 unit SC Q4 [facility]; Protocol Last Admin: 07/29/18 05:36 Dose: Not Given Ipratropium [place] (Atrovent) 0.5 mg INHALATION Q4H.RT [facility] Last Admin: 07/29/18 06:54 Dose: 0.5 mg Magnesium Hydroxide (Milk Of Magnesia) 30 ml GT DAILY PRN PRN PRN Reason: Constipation Methylprednisolone (Solu-Medrol) 40 mg IV Q8 [facility] Last Admin: 07/29/18 05:35 Dose: 40 mg Metoclopramide HCl (Reglan) 5 mg IV Q6 [facility] Stop: 07/29/18 12:01 Last Admin: 07/29/18 05:35 Dose: 5 mg Ondansetron HCl (Zofran) 4 mg IV Q8H PRN PRN PRN Reason: NAUSEA Polyethylene Glycol (Miralax) 17 gm GT BID [facility] Last Admin: 07/28/18 21:31 Dose: 17 gm Pravastatin Sodium (Pravachol) 80 mg PO QHS [facility] Last Admin: 07/28/18 21:31 Dose: 80 mg Senna/Docusate Sodium (Senokot-S, Ankita-Colace) 2 tablet PO BID [facility] Last Admin: 07/28/18 21:31 Dose: 2 tablet Sodium Chloride () 5 - 15 ml IV UD PRN PRN Reason: SALINE FLUSH Last Admin: 07/29/18 05:10 Dose: 10 ml Sodium Chloride () 10 - 40 ml IV UD PRN PRN Reason: MULTILUMEN/HICMAN CATH FLUSH Last Admin: 07/28/18 10:33 Dose: 20 ml Medical Necessity - Tobacco Use Smoking Status: Former smoker Tobacco Use: Non-smoker Assessment/Plan All Active Problems (Last Reviewed 07/20/18 @ 21:39 by Joaquín Laughlin DO) Acute bronchitis (Acute) Influenza A (Acute) Constipation (Acute) PAUL (acute kidney injury) (Acute) Atrial flutter (Acute) Paroxysmal atrial fibrillation (Acute) Hyperlipidemia (Acute) 63-year-old male with multiple comorbidities including nicotine dependence, chronic atrial fibrillation status post ablation, CAD status post PCI admitted with fever, chills, cough shortness of breath ongoing for 6 days. Patient was found to be positive for influenza and his imaging had shown pneumonia. Patient had gotten worse and was transferred to the ICU, intubated, on mechanical ventilator. 1. A. fib/atrial flutter with RVR, status post DC cardioversion, patient is back in A. fib with RVR On po amiodarone, Cardizem drip heparin drip, cardiology consulted and following 2. Acute hypoxic respiratory failure secondary to multifocal bilateral community-acquired pneumonia/acute influenza bronchitis/ARDS Patient is off paralytics, appears to be improving, continue to follow per superintendent storage area recommendation 3. Acute influenza bronchitis, completed Tamiflu, continues to be on IV solumedrol, will continue to monitor. 4. CAP, multifocal, no fevers, blood cultures are negative, completed antibiotics, leucocytosis appear to be increasing, No fevers, ID consulted 5. PAUL likely multifactorial, secondary to ATN/severe sepsis, urine output has been increasing, Cr is stable at 1.80 Nephrology following, labs in am. 6. Type 2 DM, BS better controlled now, secondary to IV steroids and medications with 5% dextrose and tube feeds, HgBA1c is 9.3, on Lantus 80mg BID as well as accucheks with ISS 7. CAD status post PCI, on aspirin 8. DVT prophylaxis - On Heparin drip 9. GI PPx- famotidine Code Visit Inpatient E&M: 41777 Subs Hosp L3
[2018-07-29] MEDS: Aspirin 81 MG TAB.CHEW GT (08:02)
[2018-07-29] MEDS: Famotidine 20 MG Tablet GT ×2 (08:03→22:54)
[2018-07-29] MEDS: Senna/Docusate Sodium 1 Tablet 2 TABLET PO ×2 (08:03→22:54)
[2018-07-29] MEDS: Polyethylene Glycol 3350 17 GM PACKET GT ×2 (08:03→22:54)
[2018-07-29] MEDS: Folic Acid 1 MG Tablet GT (08:03)
[2018-07-29] MEDS: Furosemide 40 MG/4 ML Vial IV ×2 (08:05→18:48)
[2018-07-29] MEDS: Chlorhexidine 15 ML PO ×2 (08:05→23:11)
--- NOTE | 2018-07-29 09:47 | CM.UR ---
Participated in interdisciplinary rounds this am. present. Patient remains in ICU on vet w/50% o2. Remains on cardizem drip. Case management will continue to follow patient as discharge plan has yet to be determined. Tae Diggs RN, CCM.
[2018-07-29 10:40] LABS: Bedside Glucose 199 mg/dL (70-110)
[2018-07-29] MEDS: Fleet Enema 1 ML RECTAL (11:45)
[2018-07-29] MEDS: Magnesium Citrate 300 ML 150 ML GT (11:46)
--- NOTE | 2018-07-29 12:52 | PCM.PN.BLA ---
Progress Note Remains intubated for respiratory failure. Patient continues to be in atrial fibrillation with rapid ventricular response. Doubt that the patient is absorbing much of his p.o. amiodarone. Will change to IV. Continue to strive for rate control.
[2018-07-29] MEDS: HEPARIN/D5w 25,000 UNITS 25,000 UNITS/250 ML IV.SOLN. 16 UNITS IV (14:07)
[2018-07-29 14:35] LABS: Partial Thromboplast Time 54.2 Seconds (24.1-36.2)
[2018-07-29 15:06] LABS: Bedside Glucose 200 mg/dL (70-110)
[2018-07-29] MEDS: Magnesium Citrate 300 ML 150 ML PO (17:45)
--- NOTE | 2018-07-29 20:02 | PCM.PN.REN ---
Patient Problems: Active and Suspected Problems (Last Reviewed 07/20/18 @ 21:39 by Joaquín Laughlin DO) Acute bronchitis (Acute) Influenza A (Acute) Constipation (Acute) CAMELIA (acute kidney injury) (Acute) Atrial flutter (Acute) Subjective: Following for CAMELIA. Pt is intubated/sedated. Cannot do ROS. - Physical Exam General: No apparent distress HEENT: - - intubated Oral: Moist Mucosa Neck: Supple Lungs: Clear to auscultation - anteriorly Cardiovascular: Normal S1, Normal S2, No murmurs Abdomen: Soft, Non Tender, Bowel Sounds Not Present Extremities: No clubbing, No cyanosis, No edema Vital Signs Temp Pulse Resp BP Pulse Ox 98.7 F 126 H 16 135/84 H 93 07/29/18 19:36 07/29/18 19:36 07/29/18 19:36 07/29/18 19:36 07/29/18 19:36 Oxygen Flow Rate (L/min) 15 Oxygen Delivery Method Mechanical Ventilator Weight: 115.1 kg Body Mass Index (BMI) 38.6 Finger Stick Blood Glucose 200 Intake and Output for Last 24 Hours 07/27/18 07/28/18 07/29/18 23:59 23:59 23:59 Intake Total 3951.8 / 3951.8 3140 / 3140 2502.6 / 2502.6 Output Total 2049 / 2049 5925 / 5925 3725 / 3725 Balance 1901.8 / 1901.8 -2785 / -2785 -1222.4 / -1222.4 Laboratory Tests Past 24 Hrs 07/29/18 07/29/18 07/29/18 04:20 04:20 04:20 WBC 13.6 H RBC 4.47 L Hgb 13.8 Hct 42.7 MCV 95.5 H MCH 30.9 MCHC 32.3 RDW 13.7 RDW Differential 47.6 H Plt Count 301 MPV 10.7 APTT 47.3 H Sodium 145 Potassium 4.5 Chloride 106 Carbon Dioxide 30.0 Anion Gap 9 BUN 67 H Creatinine 1.80 H Estim Creat Clear Calc 39.58 Est GFR (MDRD) Af Amer 49 L Est GFR (MDRD) Non-Af 40 L BUN/Creatinine Ratio 37.2 H Glucose 186 H Calcium 8.2 L 07/29/18 14:20 WBC RBC Hgb Hct MCV MCH MCHC RDW RDW Differential Plt Count MPV APTT 54.2 H Sodium Potassium Chloride Carbon Dioxide Anion Gap BUN Creatinine Estim Creat Clear Calc Est GFR (MDRD) Af Amer Est GFR (MDRD) Non-Af BUN/Creatinine Ratio Glucose Calcium POC Glucose 07/29/18 07/29/18 07/29/18 14:04 10:05 05:31 POC Glucose 200 H 199 H 145 H 07/29/18 07/28/18 07/28/18 02:28 22:01 20:01 POC Glucose 192 H 149 H 204 H 07/28/18 18:00 POC Glucose 66 L Medical Necessity - Tobacco Use Smoking Status: Former smoker Tobacco Use: Non-smoker Assessment/Plan All Active Problems (Last Reviewed 07/20/18 @ 21:39 by Joaquín Laughlin DO) Acute bronchitis (Acute) Influenza A (Acute) Constipation (Acute) CAMELIA (acute kidney injury) (Acute) Atrial flutter (Acute) Paroxysmal atrial fibrillation (Acute) Hyperlipidemia (Acute) 1. Acute kidney onjury. Normal baseline renal function. Camelia is 2/2 ischemic ATN. Renal function is improving. No need for dialysis. Avoid nephrotoxins (NSAID or IV contrast). Pt is polyuric due to recovery of ATN (though he is on Lasix). May want to cut back on Lasix tomorrow to avoid excessive diuresis and hypernatremia. 2. Acute hypoxic respiratory failure. vent dependent. Vent management as per pulm/CCM. On antimicrobial and steroid. 3. Influenza A. On Tamiflu. On antibiotic as per ID to cover for bacterial superinfection.
[2018-07-29 20:40] LABS: Bedside Glucose 268 mg/dL (70-110)
[2018-07-29 20:54] LABS: Partial Thromboplast Time 66.6 Seconds (24.1-36.2)
[2018-07-29] MEDS: Pravastatin 80 MG Tablet PO (22:54)
[2018-07-29 23:10] LABS: Bedside Glucose 315 mg/dL (70-110)
[2018-07-30] VITALS (40 sets, daily range): BP systolic 93–149; BP diastolic 55–88; PULSE 52–82; RESP 14–93; TEMP 36.1–37.6; O2SAT 45–98
[2018-07-30] MEDS: fentaNYL drip 100 ML 5 MCG IV ×4 (00:04→21:22)
[2018-07-30] MEDS: Propofol 10MG/Ml 1,000 MG/100 ML Bottle 6.906 MG CONT INF ×5 (00:04→23:59)
[2018-07-30] MEDS: Ipratropium 0.5 MG/2.5 ML SOLUTION INHALATION ×6 (03:19→22:24)
[2018-07-30] MEDS: Insulin Lispro 100 UNIT/ML INSULN.PEN SC ×6 (03:51→23:55)
[2018-07-30 03:56] LABS: Partial Thromboplast Time 71.7 Seconds (24.1-36.2)
[2018-07-30 04:01] LABS: Bedside Glucose 254 mg/dL (70-110)
[2018-07-30 04:02] LABS: Albumin, Serum 2.4 g/dL (3.2-5.0); BUN 68 mg/dL (7-18); BUN/Creat Ratio 40.5 RATIO (10-20); Calcium,Total 7.9 mg/dL (8.5-10.1); Chloride 98 mmol/L (98-107); Creatinine, Serum 1.68 mg/dL (0.70-1.30); EST Glomerular Filtration Rate 44 mL/min (>60); Est Glom Filt Rate - Afr Amer 53 mL/min (>60); Estimated Creatinine Clearance 42.41 ml/min; Glucose 287 mg/dL (74-106); Phosphorus 4.2 mg/dL (2.5-4.9); Potassium 4.4 mmol/L (3.5-5.1); Sodium Level 141 mmol/L (136-145)
[2018-07-30] MEDS: 0.9% NaCl Peripheral Flush Adult/Peds IV (05:56)
[2018-07-30 06:11] LABS: Bedside Glucose 262 mg/dL (70-110)
--- NOTE | 2018-07-30 07:09 | PCM.PN.INT ---
Subjective: The patient was seen and examined at the bedside this morning. Events from the last 24 hours have been reviewed. The patient is currently afebrile, hemodynamically stable and maintaining appropriate oxygen saturations on on assist control mode of mechanical ventilation with an FiO2 of 45% and PEEP of 8. The patient failed his spontaneous awakening trial this morning. Creatinine continues to improve. The patient was noted to be overall net negative approximately 1 L yesterday. He is now documented to be overall net +8 L for the admission. He has still not yet had a bowel movement. Propofol and fentanyl remain in place for sedation. He remains on a continuous amiodarone and heparin infusion. Objective: The patient's most recent lab work, culture data and imaging studies have all been personally reviewed. Chest imaging studies have all revealed significant multifocal bilateral infiltrates. Surface echocardiogram revealed mild concentric LVH with an ejection fraction of 55% and stage II diastolic dysfunction. Pulmonary artery systolic pressure was estimated to be 26 mmHg. The patient's rapid influenza screen was positive for influenza A. The remainder of his infectious workup, including sputum cultures have been unrevealing to date. General: - - Intubated, sedated and mechanically ventilated. No ventilator dyssynchrony noted. HEENT: Atraumatic, PERRLA, Normocephalic Oral: No Gingival or Mucosal Lesions/ Ulcerations, - - Endotracheal and OG tubes remain in place Neck: Supple, No Nodes, Trachea Midline Lungs: No rhonchi, No wheeze, No rales, Diminished Cardiovascular: Normal S1, Normal S2, No murmurs, Bradycardic, - - Currently in sinus rhythm Abdomen: Soft, Non Tender, Hypoactive Bowel Sounds, Obese Extremities: No clubbing, No cyanosis, Edema Skin: No breakdown Musculoskeletal: No Tenderness to Palpation of Joints or Extremities, No Muscle Wasting Lymphatic: No Cervical, Supraclavicular, or Inguinal Adenopathy Neurological: - - Remains heavily sedated. Vital Signs Temp Pulse Resp BP Pulse Ox 37.1 C 71 16 146/69 H 91 07/30/18 06:00 07/30/18 06:00 07/30/18 06:00 07/30/18 06:00 07/30/18 06:00 Oxygen Flow Rate (L/min) 15 Oxygen Delivery Method Mechanical Ventilator Weight: 248 lb 10.903 oz Body Mass Index (BMI) 38.6 Finger Stick Blood Glucose 200 Intake and Output for Last 24 Hours 07/28/18 07/29/18 07/31/18 23:59 23:59 00:59 Intake Total 3140 / 3140 2752.6 / 2752.6 1083.1 / 1083.1 Output Total 5925 / 5925 3725 / 3725 1870 / 1870 Balance -2785 / -2785 -972.4 / -972.4 -786.9 / -786.9 Labs (Last 48 Hours) 07/28/18 07/28/18 07/28/18 04:30 10:25 16:02 WBC RBC Hgb Hct MCV MCH MCHC RDW RDW Differential Plt Count MPV Diff Path Review Reviewed APTT Sodium Potassium Chloride Carbon Dioxide Anion Gap BUN Creatinine Estim Creat Clear Calc Est GFR (MDRD) Af Amer Est GFR (MDRD) Non-Af BUN/Creatinine Ratio Glucose Calcium Phosphorus Albumin POC Glucose 175 H 85 07/28/18 07/28/18 07/28/18 18:00 18:12 20:01 WBC RBC Hgb Hct MCV MCH MCHC RDW RDW Differential Plt Count MPV Diff Path Review APTT Sodium Potassium Chloride Carbon Dioxide Anion Gap BUN Creatinine Estim Creat Clear Calc Est GFR (MDRD) Af Amer Est GFR (MDRD) Non-Af BUN/Creatinine Ratio Glucose Calcium Phosphorus Albumin POC Glucose 66 L 74 204 H 07/28/18 07/29/18 07/29/18 22:01 02:28 04:20 WBC RBC Hgb Hct MCV MCH MCHC RDW RDW Differential Plt Count MPV Diff Path Review APTT Sodium 145 Potassium 4.5 Chloride 106 Carbon Dioxide 30.0 Anion Gap 9 BUN 67 H Creatinine 1.80 H Estim Creat Clear Calc 39.58 Est GFR (MDRD) Af Amer 49 L Est GFR (MDRD) Non-Af 40 L BUN/Creatinine Ratio 37.2 H Glucose 186 H Calcium 8.2 L Phosphorus Albumin POC Glucose 149 H 192 H 07/29/18 07/29/18 07/29/18 04:20 04:20 05:31 WBC 13.6 H RBC 4.47 L Hgb 13.8 Hct 42.7 MCV 95.5 H MCH 30.9 MCHC 32.3 RDW 13.7 RDW Differential 47.6 H Plt Count 301 MPV 10.7 Diff Path Review APTT 47.3 H Sodium Potassium Chloride Carbon Dioxide Anion Gap BUN Creatinine Estim Creat Clear Calc Est GFR (MDRD) Af Amer Est GFR (MDRD) Non-Af BUN/Creatinine Ratio Glucose Calcium Phosphorus Albumin POC Glucose 145 H 07/29/18 07/29/18 07/29/18 10:05 14:04 14:20 WBC RBC Hgb Hct MCV MCH MCHC RDW RDW Differential Plt Count MPV Diff Path Review APTT 54.2 H Sodium Potassium Chloride Carbon Dioxide Anion Gap BUN Creatinine Estim Creat Clear Calc Est GFR (MDRD) Af Amer Est GFR (MDRD) Non-Af BUN/Creatinine Ratio Glucose Calcium Phosphorus Albumin POC Glucose 199 H 200 H 07/29/18 07/29/18 07/29/18 18:47 20:30 23:04 WBC RBC Hgb Hct MCV MCH MCHC RDW RDW Differential Plt Count MPV Diff Path Review APTT 66.6 H Sodium Potassium Chloride Carbon Dioxide Anion Gap BUN Creatinine Estim Creat Clear Calc Est GFR (MDRD) Af Amer Est GFR (MDRD) Non-Af BUN/Creatinine Ratio Glucose Calcium Phosphorus Albumin POC Glucose 268 H 315 H 07/30/18 07/30/18 07/30/18 03:30 03:30 03:48 WBC RBC Hgb Hct MCV MCH MCHC RDW RDW Differential Plt Count MPV Diff Path Review APTT 71.7 H Sodium 141 Potassium 4.4 Chloride 98 Carbon Dioxide 35.0 H Anion Gap BUN 68 H Creatinine 1.68 H Estim Creat Clear Calc 42.41 Est GFR (MDRD) Af Amer 53 L Est GFR (MDRD) Non-Af 44 L BUN/Creatinine Ratio 40.5 H Glucose 287 H Calcium 7.9 L Phosphorus 4.2 Albumin 2.4 L POC Glucose 254 H 07/30/18 05:52 WBC RBC Hgb Hct MCV MCH MCHC RDW RDW Differential Plt Count MPV Diff Path Review APTT Sodium Potassium Chloride Carbon Dioxide Anion Gap BUN Creatinine Estim Creat Clear Calc Est GFR (MDRD) Af Amer Est GFR (MDRD) Non-Af BUN/Creatinine Ratio Glucose Calcium Phosphorus Albumin POC Glucose 262 H Clinical Impression(s) from Imaging Studies KUB X-Ray 07/20/18 18:41 IMPRESSION: No evidence of obstruction or perforation. at 2003 Reported and signed by: Salinas Noriega MD Electronically Signed: Salinas Noriega, at 20:02 EST Tel , Service support , Chest X-Ray 07/20/18 19:30 IMPRESSION: No radiographic evidence of acute cardiopulmonary disease. at 2003 Reported and signed by: Salinas Noriega MD Electronically Signed: Salinas Noriega, at 20:02 EST Tel , Service support , Abdomen X-Ray 07/21/18 11:07 IMPRESSION: Diffuse distention of bowel most likely ileus. Distal colonic obstruction not likely but possible. at 0143 Reported and signed by: Salinas Noriega MD Electronically Signed: Salinas Noriega, at 1:42 EST Tel , Service support , Chest X-Ray 07/22/18 09:37 IMPRESSION: Findings concerning for multifocal pneumonia in the appropriate clinical setting with underlying alveolar edema not completely excluded. Recommend follow-up imaging in 4-6 weeks after appropriate treatment. Electronically Signed: Pacheco Galo DO at 9:56 EST , Service support , Chest CTA 07/22/18 17:51 IMPRESSION: No pulmonary embolus. Multifocal bilateral airspace disease in the lungs similar to the most recent chest radiograph but increased compared to 07/20/18 compatible with multifocal pneumonia versus a noninfectious inflammatory pneumonitis. Small, 4.0 cm, ascending thoracic aortic aneurysm with no hemorrhage or dissection. Individualized dose optimization techniques were used for this CT. at 1927 Reported and signed by: Salinas Noriega MD Electronically Signed: Salinas Noriega, at 19:26 EST Tel , Service support , Chest X-Ray 07/24/18 08:42 IMPRESSION: Progressive bilateral airspace disease. The tip of the endotracheal tube is at 4.1 cm proximal to the sunshine. The tip of the orogastric tube is in the body of the stomach. Electronically Signed: Shar Castillo, at 14:18 EST , Service support , Chest X-Ray 07/25/18 08:20 IMPRESSION: Since prior study, there has been improved aeration of both lungs although residual bilateral airspace disease is seen. Electronically Signed: Shar Castillo, at 9:08 EST , Service support , Chest X-Ray 07/28/18 06:29 IMPRESSION: Since prior study, there has been mild improvement of the aeration of both lungs. Residual bilateral patchy infiltrates are seen. Electronically Signed: Shar Castillo, at 8:22 EST , Service support , KUB X-Ray 07/29/18 05:55 IMPRESSION: Nasogastric tube with its tip in the region of the stomach. Nonspecific gas pattern. Electronically Signed: Emmett Anaya MD at 8:37 EST Tel , Service support , Medical Necessity - Tobacco Use Smoking Status: Former smoker Tobacco Use: Non-smoker Assessment/Plan All Active Problems (Last Reviewed 07/20/18 @ 21:39 by Joaquín Laughlin DO) Acute bronchitis (Acute) Influenza A (Acute) Constipation (Acute) PAUL (acute kidney injury) (Acute) Atrial flutter (Acute) Paroxysmal atrial fibrillation (Acute) Hyperlipidemia (Acute) RECOMMENDATIONS: 1. Continue current supportive measures with lung protective ventilatory strategy. 2. Wean FiO2 and PEEP to maintain an oxygen saturation at or above 90%. 3. Decrease Lasix to once daily. 4. Wean IV steroids to Solu-Medrol 40 mg once daily. 5. Reattempt slow rate tube feeds. 6. Continue to wean sedation as tolerated. 7. Continue scheduled aerosol treatments and appropriate ICU prophylaxis. 8. Continue heparin drip and rate/rhythm control strategy per cardiology recommendations. IMPRESSIONS: 1. Acute hypoxemic respiratory failure secondary to influenza A infection and severe community-acquired pneumonia/evolving ARDS The patient has a questionable baseline history of COPD. He was seen in the pulmonary medicine clinic 1 year ago, at which time, pulmonary function studies were ordered. However, the patient never followed up. Although the patient was admitted to the hospital with influenza A and a plain film chest x-ray which was largely unremarkable, follow-up chest imaging subsequently revealed evidence of evolving multifocal pneumonia. The patient has essentially gone on to develop full-blown ARDS. He did require intubation on the morning of July 24. He has been maintained on a lung protective ventilator strategy. We will continue to wean FiO2 and PEEP to maintain an oxygen saturation at or above 90%. We will continue scheduled Atrovent and steroids as ordered. The patient's sedation regimen will be cautiously weaned as tolerated. We will plan to decrease the patient's diuretic therapy to once daily, to prevent over diuresis. The patient has already completed his course of Tamiflu and antibiotics. 2. New onset atrial flutter with rapid ventricular rate The patient did require bedside cardioversion on July 26. We will plan to continue medical management per cardiology recommendations. 3. Acute kidney injury Improving. Nephrology is currently following. Avoid nephrotoxic agents. Continue to monitor urine output. No current indication for renal replacement therapy. Decrease Lasix to once daily. 4. Known history of pulmonary nodules The patient is actually past due for a repeat CT chest due to his previously identified pulmonary nodules in March 2017. 5. Obstructive sleep apnea The patient is currently noncompliant with the use of nocturnal noninvasive positive pressure ventilation. 6. Rheumatoid arthritis/atrial fibrillation status post ablation/coronary artery disease/tobacco dependency currently in remission Complicates care, management, recovery and prognosis. Continue home medications as indicated. Continue basal and sliding scale insulin regimen. Physical therapy to work with patient, once medically stabilized. TIME: 40 minutes of critical care time, independent of procedures, was spent addressing the patient's acute hypoxemic respiratory failure, influenza A infection, severe community-acquired pneumonia, ARDS, acute kidney injury, new onset atrial flutter with rapid ventricular rate, history of pulmonary nodules, obstructive sleep apnea, review of all data and collaboration with the care team. ([id number]) Code Visit 9xxxx: [id number] Critical care first hour
[2018-07-30] MEDS: Senna/Docusate Sodium 1 Tablet 2 TABLET PO ×2 (08:00→21:25)
[2018-07-30] MEDS: Vital AF 1.2 Cal Liquid 1,000 ML 10 ML GT (08:24)
[2018-07-30] MEDS: Famotidine 20 MG Tablet GT ×2 (08:26→21:25)
[2018-07-30] MEDS: Aspirin 81 MG TAB.CHEW GT (08:26)
[2018-07-30] MEDS: Furosemide 40 MG/4 ML Vial IV (08:26)
[2018-07-30] MEDS: Polyethylene Glycol 3350 17 GM PACKET GT ×2 (08:27→21:25)
[2018-07-30] MEDS: Folic Acid 1 MG Tablet GT (08:31)
[2018-07-30] MEDS: Chlorhexidine 15 ML PO ×2 (08:55→21:25)
[2018-07-30 12:21] LABS: Bedside Glucose 273 mg/dL (70-110)
[2018-07-30] MEDS: HEPARIN/D5w 25,000 UNITS 25,000 UNITS/250 ML IV.SOLN. 16 UNITS IV (12:22)
--- NOTE | 2018-07-30 14:19 | PCM.PN.HOSP ---
Patient Problems: Active and Suspected Problems (Last Reviewed 07/20/18 @ 21:39 by Joaquín Laughlin DO) Acute bronchitis (Acute) Influenza A (Acute) Constipation (Acute) PAUL (acute kidney injury) (Acute) Atrial flutter (Acute) Subjective: Patient was seen and examined. Remains intubated. Had episodes of severe bradycardia with amiodarone treatment. Oxygen requirements have gone down. Objective: Physical exam: General: Sedated, intubated, on mechanical ventilator HEENT: Atraumatic, PERRLA, EOMI, Normocephalic Oral: Dry Mucosa Neck: Supple, No JVD, Negative Carotid Bruits Lungs: Normal air movement, Diminished Cardiovascular: Regular rate, Normal S1, Normal S2, Irregular Rate, Tachycardic Abdomen: Bowel Sounds Present, Soft, Non-Distended, No Hepato-splenomegaly Extremities: Bilateral trace edema Skin: No rashes, No breakdown Musculoskeletal: No Tenderness to Palpation of Joints or Extremities Lymphatic: No Cervical, Supraclavicular, or Inguinal Adenopathy Neurological: Cranial nerves II-XII grossly intact, Neuro grossly intact Psych/Mental Status: Normal Affect, Appropriate Vitals/I&O's: Vital Signs Temp Pulse Resp BP Pulse Ox 99.3 F H 57 L 16 122/64 H 90 07/30/18 12:00 07/30/18 13:25 07/30/18 13:25 07/30/18 12:00 07/30/18 13:25 Oxygen Flow Rate (L/min) 15 Oxygen Delivery Method Mechanical Ventilator Weight: 112.8 kg Body Mass Index (BMI) 38.6 Finger Stick Blood Glucose 200 Intake and Output for Last 24 Hours 07/28/18 07/29/18 07/31/18 23:59 23:59 00:59 Intake Total 3140 / 3140 2752.6 / 2752.6 1868.1 / 1868.1 Output Total 5925 / 5925 3725 / 3725 3020 / 3020 Balance -2785 / -2785 -972.4 / -972.4 -1151.9 / -1151.9 Laboratory Results 07/29/18 14:04: POC Glucose 200 H 07/29/18 14:20: APTT 54.2 H 07/29/18 18:47: POC Glucose 268 H 07/29/18 20:30: APTT 66.6 H 07/29/18 23:04: POC Glucose 315 H 07/30/18 03:30: Sodium 141, Potassium 4.4, Chloride 98, Carbon Dioxide 35.0 H, BUN 68 H, Creatinine 1.68 H, Estim Creat Clear Calc 42.41, Est GFR (MDRD) Af Amer 53 L, Est GFR (MDRD) Non-Af 44 L, BUN/Creatinine Ratio 40.5 H, Glucose 287 H, Calcium 7.9 L, Phosphorus 4.2, Albumin 2.4 L 07/30/18 03:30: APTT 71.7 H 07/30/18 03:48: POC Glucose 254 H 07/30/18 05:52: POC Glucose 262 H 07/30/18 12:09: POC Glucose 273 H Current Medications Acetaminophen (Tylenol Liquid) 650 mg GT Q4H PRN PRN PRN Reason: FEVER Amiodarone HCl (Cordarone) 200 mg PO DAILY [facility] Aspirin (Aspirin, Baby) 81 mg GT DAILY@0800 [facility] Last Admin: 07/30/18 08:26 Dose: 81 mg Atropine Sulfate () 1 mg IV X1 PRN PRN Reason: SUSTAINED HR <40 Chlorhexidine Gluconate () 15 ml PO BID [facility] Last Admin: 07/30/18 08:55 Dose: 15 ml Chlorhexidine Gluconate () 1 each TOPICAL DAILY [facility] Last Admin: 07/29/18 02:31 Dose: 1 each Dextrose (D50w Syringe) 0 gm IV X1 PRN; Protocol PRN Reason: Hypoglycemia Famotidine (Pepcid) 20 mg GT BID [facility] Last Admin: 07/30/18 08:26 Dose: 20 mg [facility] Admin: 07/30/18 08:31 Dose: 1 mg Furosemide (Lasix) 40 mg IV DAILY [facility] Last Admin: 07/30/18 12:12 Dose: Not Given Glucagon () 1 mg IM .X1 PRN PRN Reason: Hypoglycemia Heparin Sodium (Porcine) (Heparin Na) 0 unit IV UD PRN; Protocol Last Admin: 07/29/18 15:09 Dose: 1,000 unit Sodium Chloride () 250 mls @ 15 mls/hr IV .[id number] PRN PRN Reason: SALINE FLUSH Fentanyl () 100 mls @ 5 mls/hr IV .Q20H [facility] Last Admin: 07/30/18 07:20 Dose: 5 mls/hr Propofol (Diprivan) 1,000 mg in 100 mls @ 6.906 mls/hr CONT INF .Q12H [facility] Last Admin: 07/30/18 10:00 Dose: 6.906 mls/hr Heparin Sodium/Dextrose () 25,000 units in 250 mls @ 16 mls/hr IV .[id number] MELISSA; Protocol Last Admin: 07/30/18 12:22 Dose: 16 mls/hr Diltiazem HCl 125 mg/ Dextrose 125 mls @ 15 mls/hr IV .Q8H20M [facility]; Protocol Last Admin: 07/30/18 12:13 Dose: Not Given Enteral Nutritional Formula (Vital Af 1.2 Rick Liquid) 1,000 mls @ 10 mls/hr GT .Q48H [facility] Last Admin: 07/30/18 08:24 Dose: 10 mls/hr Insulin Human Lispro (Humalog Kwikpen (Bkc)) 0 unit SC Q4 MELISSA; Protocol Last Admin: 07/30/18 12:10 Dose: 9 u Ipratropium [place]ove (Atrovent) 0.5 mg INHALATION Q4H.RT [facility] Last Admin: 07/30/18 11:08 Dose: 0.5 mg Magnesium Hydroxide (Milk Of Magnesia) 30 ml GT DAILY PRN PRN PRN Reason: Constipation Methylprednisolone (Solu-Medrol) 40 mg IV DAILY [facility] Last Admin: 07/30/18 12:13 Dose: 40 mg Ondansetron HCl (Zofran) 4 mg IV Q8H PRN PRN PRN Reason: NAUSEA Polyethylene Glycol (Miralax) 17 gm GT BID [facility] Last Admin: 07/30/18 08:27 Dose: 17 gm Pravastatin Sodium (Pravachol) 80 mg PO QHS [facility] Last Admin: 07/29/18 22:54 Dose: 80 mg Senna/Docusate Sodium (Senokot-S, Ankita-Colace) 2 tablet PO BID [facility] Last Admin: 07/30/18 08:00 Dose: 2 tablet Sodium Chloride () 5 - 15 ml IV UD PRN PRN Reason: SALINE FLUSH Last Admin: 07/30/18 05:56 Dose: 10 ml Sodium Chloride () 10 - 40 ml IV UD PRN PRN Reason: MULTILUMEN/HICMAN CATH FLUSH Last Admin: 07/30/18 08:29 Dose: 20 ml Medical Necessity - Tobacco Use Smoking Status: Former smoker Tobacco Use: Non-smoker Assessment/Plan All Active Problems (Last Reviewed 07/20/18 @ 21:39 by Joaquín Laughlin DO) Acute bronchitis (Acute) Influenza A (Acute) Constipation (Acute) PAUL (acute kidney injury) (Acute) Atrial flutter (Acute) Paroxysmal atrial fibrillation (Acute) Hyperlipidemia (Acute) 63-year-old male with multiple comorbidities including nicotine dependence, chronic atrial fibrillation status post ablation, CAD status post PCI admitted with fever, chills, cough shortness of breath ongoing for 6 days. Patient was found to be positive for influenza and his imaging had shown pneumonia. Patient had gotten worse and was transferred to the ICU, intubated, on mechanical ventilator. He remains on ICU. 1. A. fib/atrial flutter with RVR, status post DC cardioversion, on p.o. amiodarone, Cardizem, heparin drip, cardiology consulted and following 2. Acute hypoxic respiratory failure secondary to multifocal bilateral community-acquired pneumonia/acute influenza bronchitis/ARDS Remains intubated, oxygen requirement are decreasing, continue to follow per [facility] operations staff officer recommendation 3. Acute influenza bronchitis, completed Tamiflu, continues to be on IV solumedrol, will continue to monitor. 4. CAP, multifocal, no fevers, blood cultures are negative, completed antibiotics, leucocytosis appear to be increasing, No fevers, ID consulted 5. PAUL likely multifactorial, secondary to ATN/severe sepsis, improving, Cr is 1.68, nephrology consulted, will continue to trend labs. 6. Type 2 DM, BS are fairly uncontrolled, HgBA1c is 9.3, on Lantus 80mg BID as well as accucheks with ISS 7. CAD status post PCI, on aspirin 8. DVT prophylaxis - On Heparin drip 9. GI PPx- famotidine Code Visit Inpatient E&M: 39815 Subs Hosp L2
--- NOTE | 2018-07-30 14:26 | PN_ITS ---
Patient Problems: Active and Suspected Problems (Last Reviewed 07/20/18 @ 21:39 by Joaquín Laughlin DO) Acute bronchitis (Acute) Influenza A (Acute) Constipation (Acute) PAUL (acute kidney injury) (Acute) Atrial flutter (Acute) Subjective: Patient was seen and examined. Remains intubated. Had episodes of severe bradycardia with amiodarone treatment. Oxygen requirements have gone down. Objective: Physical exam: General: Sedated, intubated, on mechanical ventilator HEENT: Atraumatic, PERRLA, EOMI, Normocephalic Oral: Dry Mucosa Neck: Supple, No JVD, Negative Carotid Bruits Lungs: Normal air movement, Diminished Cardiovascular: Regular rate, Normal S1, Normal S2, Irregular Rate, Tachycardic Abdomen: Bowel Sounds Present, Soft, Non-Distended, No Hepato-splenomegaly Extremities: Bilateral trace edema Skin: No rashes, No breakdown Musculoskeletal: No Tenderness to Palpation of Joints or Extremities Lymphatic: No Cervical, Supraclavicular, or Inguinal Adenopathy Neurological: Cranial nerves II-XII grossly intact, Neuro grossly intact Psych/Mental Status: Normal Affect, Appropriate Vitals/I&O's: Vital Signs Temp Pulse Resp BP Pulse Ox 99.3 F H 57 L 16 122/64 H 90 07/30/18 12:00 07/30/18 13:25 07/30/18 13:25 07/30/18 12:00 07/30/18 13:25 Oxygen Flow Rate (L/min) 15 Oxygen Delivery Method Mechanical Ventilator Weight: 112.8 kg Body Mass Index (BMI) 38.6 Finger Stick Blood Glucose 200 Intake and Output for Last 24 Hours 07/28/18 07/29/18 07/31/18 23:59 23:59 00:59 Intake Total 3140 / 3140 2752.6 / 2752.6 1868.1 / 1868.1 Output Total 5925 / 5925 3725 / 3725 3020 / 3020 Balance -2785 / -2785 -972.4 / -972.4 -1151.9 / -1151.9 Laboratory Results 07/29/18 14:04: POC Glucose 200 H 07/29/18 14:20: APTT 54.2 H 07/29/18 18:47: POC Glucose 268 H 07/29/18 20:30: APTT 66.6 H 07/29/18 23:04: POC Glucose 315 H 07/30/18 03:30: Sodium 141, Potassium 4.4, Chloride 98, Carbon Dioxide 35.0 H, BUN 68 H, Creatinine 1.68 H, Estim Creat Clear Calc 42.41, Est GFR (MDRD) Af Amer 53 L, Est GFR (MDRD) Non-Af 44 L, BUN/Creatinine Ratio 40.5 H, Glucose 287 H, Calcium 7.9 L, Phosphorus 4.2, Albumin 2.4 L 07/30/18 03:30: APTT 71.7 H 07/30/18 03:48: POC Glucose 254 H 07/30/18 05:52: POC Glucose 262 H 07/30/18 12:09: POC Glucose 273 H Current Medications Acetaminophen (Tylenol Liquid) 650 mg GT Q4H PRN PRN PRN Reason: FEVER Amiodarone HCl (Cordarone) 200 mg PO DAILY [facility] Aspirin (Aspirin, Baby) 81 mg GT DAILY@0800 [facility] Last Admin: 07/30/18 08:26 Dose: 81 mg Atropine Sulfate () 1 mg IV X1 PRN PRN Reason: SUSTAINED HR <40 Chlorhexidine Gluconate () 15 ml PO BID [facility] Last Admin: 07/30/18 08:55 Dose: 15 ml Chlorhexidine Gluconate () 1 each TOPICAL DAILY [facility] Last Admin: 07/29/18 02:31 Dose: 1 each Dextrose (D50w Syringe) 0 gm IV X1 PRN; Protocol PRN Reason: Hypoglycemia Famotidine (Pepcid) 20 mg GT BID [facility] Last Admin: 07/30/18 08:26 Dose: 20 mg [facility] Admin: 07/30/18 08:31 Dose: 1 mg Furosemide (Lasix) 40 mg IV DAILY [facility] Last Admin: 07/30/18 12:12 Dose: Not Given Glucagon () 1 mg IM .X1 PRN PRN Reason: Hypoglycemia Heparin Sodium (Porcine) (Heparin Na) 0 unit IV UD PRN; Protocol Last Admin: 07/29/18 15:09 Dose: 1,000 unit Sodium Chloride () 250 mls @ 15 mls/hr IV .[id number] PRN PRN Reason: SALINE FLUSH Fentanyl () 100 mls @ 5 mls/hr IV .Q20H [facility] Last Admin: 07/30/18 07:20 Dose: 5 mls/hr Propofol (Diprivan) 1,000 mg in 100 mls @ 6.906 mls/hr CONT INF .Q12H [facility] Last Admin: 07/30/18 10:00 Dose: 6.906 mls/hr Heparin Sodium/Dextrose () 25,000 units in 250 mls @ 16 mls/hr IV .[id number] MELISSA; Protocol Last Admin: 07/30/18 12:22 Dose: 16 mls/hr Diltiazem HCl 125 mg/ Dextrose 125 mls @ 15 mls/hr IV .Q8H20M [facility]; Protocol Last Admin: 07/30/18 12:13 Dose: Not Given Enteral Nutritional Formula (Vital Af 1.2 Rick Liquid) 1,000 mls @ 10 mls/hr GT .Q48H [facility] Last Admin: 07/30/18 08:24 Dose: 10 mls/hr Insulin Human Lispro (Humalog Kwikpen (Bkc)) 0 unit SC Q4 MELISSA; Protocol Last Admin: 07/30/18 12:10 Dose: 9 u Ipratropium [place] (Atrovent) 0.5 mg INHALATION Q4H.RT [facility] Last Admin: 07/30/18 11:08 Dose: 0.5 mg Magnesium Hydroxide (Milk Of Magnesia) 30 ml GT DAILY PRN PRN PRN Reason: Constipation Methylprednisolone (Solu-Medrol) 40 mg IV DAILY [facility] Last Admin: 07/30/18 12:13 Dose: 40 mg Ondansetron HCl (Zofran) 4 mg IV Q8H PRN PRN PRN Reason: NAUSEA Polyethylene Glycol (Miralax) 17 gm GT BID [facility] Last Admin: 07/30/18 08:27 Dose: 17 gm Pravastatin Sodium (Pravachol) 80 mg PO QHS [facility] Last Admin: 07/29/18 22:54 Dose: 80 mg Senna/Docusate Sodium (Senokot-S, Ankita-Colace) 2 tablet PO BID [facility] Last Admin: 07/30/18 08:00 Dose: 2 tablet Sodium Chloride () 5 - 15 ml IV UD PRN PRN Reason: SALINE FLUSH Last Admin: 07/30/18 05:56 Dose: 10 ml Sodium Chloride () 10 - 40 ml IV UD PRN PRN Reason: MULTILUMEN/HICMAN CATH FLUSH Last Admin: 07/30/18 08:29 Dose: 20 ml Medical Necessity - Tobacco Use Smoking Status: Former smoker Tobacco Use: Non-smoker Assessment/Plan All Active Problems (Last Reviewed 07/20/18 @ 21:39 by Joaquín Laughlin DO) Acute bronchitis (Acute) Influenza A (Acute) Constipation (Acute) PAUL (acute kidney injury) (Acute) Atrial flutter (Acute) Paroxysmal atrial fibrillation (Acute) Hyperlipidemia (Acute) 63-year-old male with multiple comorbidities including nicotine dependence, chronic atrial fibrillation status post ablation, CAD status post PCI admitted with fever, chills, cough shortness of breath ongoing for 6 days. Patient was found to be positive for influenza and his imaging had shown pneumonia. Patient had gotten worse and was transferred to the ICU, intubated, on mechanical ventilator. He remains on ICU. 1. A. fib/atrial flutter with RVR, status post DC cardioversion, on p.o. amiodarone, Cardizem, heparin drip, cardiology consulted and following 2. Acute hypoxic respiratory failure secondary to multifocal bilateral community-acquired pneumonia/acute influenza bronchitis/ARDS Remains intubated, oxygen requirement are decreasing, continue to follow per servicer recommendation 3. Acute influenza bronchitis, completed Tamiflu, continues to be on IV solumedrol, will continue to monitor. 4. CAP, multifocal, no fevers, blood cultures are negative, completed antibiotics, leucocytosis appear to be increasing, No fevers, ID consulted 5. PAUL likely multifactorial, secondary to ATN/severe sepsis, improving, Cr is 1.68, nephrology consulted, will continue to trend labs. 6. Type 2 DM, BS are fairly uncontrolled, HgBA1c is 9.3, on Lantus 80mg BID as well as accucheks with ISS 7. CAD status post PCI, on aspirin 8. DVT prophylaxis - On Heparin drip 9. GI PPx- famotidine Code Visit Inpatient E&M: 61251 Subs Hosp L2
[2018-07-30 17:11] LABS: Bedside Glucose 252 mg/dL (70-110)
[2018-07-30 20:00] LABS: Bedside Glucose 234 mg/dL (70-110)
[2018-07-30] MEDS: Pravastatin 80 MG Tablet PO (21:25)
[2018-07-31] VITALS (44 sets, daily range): BP systolic 97–158; BP diastolic 56–91; PULSE 57–135; RESP 16–20; TEMP 37.1–37.4; O2SAT 89–95
[2018-07-31 00:06] LABS: Bedside Glucose 205 mg/dL (70-110)
[2018-07-31] MEDS: Ipratropium 0.5 MG/2.5 ML SOLUTION INHALATION ×6 (03:18→22:50)
[2018-07-31 04:41] LABS: Bedside Glucose 147 mg/dL (70-110)
[2018-07-31 04:42] LABS: Hematocrit 42.9 % (40-54); Hemoglobin 13.7 g/dl (13.0-16.5); Mean Corp Hgb Conc 31.9 g/gl (32-36); Mean Corpuscular Volume 97.1 fL (80-94); Mean Platelet Vol. 10.9 fl (6.2-12.0); Platelet Count 301 K/mm3 (150-450); RBC Distribution Width SD 49.7 fl (35.1-43.9); Red Blood Count 4.42 M/mm3 (4.6-6.2); White Blood Count 14.7 K/mm3 (4.4-11.0)
[2018-07-31 04:43] LABS: POSITIVE COUNT YES; POSITIVE DIFFERENTIAL NO; POSITIVE MORPHOLOGY YES
[2018-07-31 04:44] LABS: Differential Indicated MANUAL DIFF
[2018-07-31 04:48] LABS: Anion Gap 10 (5-15); BUN 78 mg/dL (7-18); BUN/Creat Ratio 45.3 RATIO (10-20); Calcium,Total 8.3 mg/dL (8.5-10.1); Chloride 100 mmol/L (98-107); Creatinine, Serum 1.72 mg/dL (0.70-1.30); EST Glomerular Filtration Rate 43 mL/min (>60); Est Glom Filt Rate - Afr Amer 52 mL/min (>60); Estimated Creatinine Clearance 41.42 ml/min; Glucose 162 mg/dL (74-106); Partial Thromboplast Time 69.8 Seconds (24.1-36.2); Potassium 4.1 mmol/L (3.5-5.1); Sodium Level 146 mmol/L (136-145)
[2018-07-31] MEDS: Propofol 10MG/Ml 1,000 MG/100 ML Bottle 6.906 MG CONT INF (05:13)
--- NOTE | 2018-07-31 06:33 | PCM.PN.INT ---
Subjective: The patient was seen and examined at the bedside this morning. Events from the last 24 hours have been reviewed. The patient is currently afebrile, hemodynamically stable and maintaining appropriate oxygen saturations on assist control with an FiO2 of 45% and PEEP of 8. The patient's propofol has been weaned to 15 mg and his fentanyl is currently infusing at 125 mg/h. He remains in normal sinus rhythm at the current time. He has still not yet had a bowel movement. He is currently tolerating trickle tube feeds. Creatinine is relatively stable at 1.72. The patient was noted to be overall net -1.2 L yesterday. He is now overall net +7.6 L for the admission. Objective: The patient's most recent lab work, culture data and imaging studies have all been personally reviewed. Chest imaging studies have all revealed significant multifocal bilateral infiltrates. Surface echocardiogram revealed mild concentric LVH with an ejection fraction of 55% and stage II diastolic dysfunction. Pulmonary artery systolic pressure was estimated to be 26 mmHg. The patient's rapid influenza screen was positive for influenza A. The remainder of his infectious workup, including sputum cultures have been unrevealing to date. General: - - Remains intubated, sedated and mechanically ventilated. No dyssynchrony noted. HEENT: Atraumatic, PERRLA, Normocephalic Oral: No Gingival or Mucosal Lesions/ Ulcerations, - - Endotracheal and OG tubes remain in place Neck: Supple, No Nodes, Trachea Midline Lungs: No rhonchi, No wheeze, No rales, Diminished Cardiovascular: Regular rate, Regular Rhythm, Normal S1, Normal S2, No murmurs, - - Currently in normal sinus rhythm Abdomen: Soft, Non Tender, Hypoactive Bowel Sounds, Obese Extremities: No clubbing, No cyanosis, Edema Skin: - - No significant change from previous. Musculoskeletal: No Tenderness to Palpation of Joints or Extremities Lymphatic: No Cervical, Supraclavicular, or Inguinal Adenopathy Neurological: - - No focal neurological deficits. Currently sedated with a RASS of -3. Vital Signs Temp Pulse Resp BP Pulse Ox 37.3 C 83 16 151/91 H 91 07/31/18 06:05 07/31/18 06:05 07/31/18 06:05 07/31/18 06:05 07/31/18 06:05 Oxygen Flow Rate (L/min) 15 Oxygen Delivery Method Mechanical Ventilator Weight: 246 lb 14.684 oz Body Mass Index (BMI) 38.6 Finger Stick Blood Glucose 200 Intake and Output for Last 24 Hours 07/29/18 07/30/18 07/31/18 22:59 23:59 23:59 Intake Total 973.7 / 973.7 Output Total 900 / 900 Balance 73.7 / 73.7 Labs (Last 48 Hours) 07/29/18 07/29/18 07/29/18 05:31 10:05 14:04 WBC RBC Hgb Hct MCV MCH MCHC RDW RDW Differential Plt Count MPV Neut % (Auto) Absolute Neuts (auto) Total Counted APTT Sodium Potassium Chloride Carbon Dioxide Anion Gap BUN Creatinine Estim Creat Clear Calc Est GFR (MDRD) Af Amer Est GFR (MDRD) Non-Af BUN/Creatinine Ratio Glucose Calcium Phosphorus Albumin POC Glucose 145 H 199 H 200 H 07/29/18 07/29/18 07/29/18 14:20 18:47 20:30 WBC RBC Hgb Hct MCV MCH MCHC RDW RDW Differential Plt Count MPV Neut % (Auto) Absolute Neuts (auto) Total Counted APTT 54.2 H 66.6 H Sodium Potassium Chloride Carbon Dioxide Anion Gap BUN Creatinine Estim Creat Clear Calc Est GFR (MDRD) Af Amer Est GFR (MDRD) Non-Af BUN/Creatinine Ratio Glucose Calcium Phosphorus Albumin POC Glucose 268 H 07/29/18 07/30/18 07/30/18 23:04 03:30 03:30 WBC RBC Hgb Hct MCV MCH MCHC RDW RDW Differential Plt Count MPV Neut % (Auto) Absolute Neuts (auto) Total Counted APTT 71.7 H Sodium 141 Potassium 4.4 Chloride 98 Carbon Dioxide 35.0 H Anion Gap BUN 68 H Creatinine 1.68 H Estim Creat Clear Calc 42.41 Est GFR (MDRD) Af Amer 53 L Est GFR (MDRD) Non-Af 44 L BUN/Creatinine Ratio 40.5 H Glucose 287 H Calcium 7.9 L Phosphorus 4.2 Albumin 2.4 L POC Glucose 315 H 07/30/18 07/30/18 07/30/18 03:48 05:52 12:09 WBC RBC Hgb Hct MCV MCH MCHC RDW RDW Differential Plt Count MPV Neut % (Auto) Absolute Neuts (auto) Total Counted APTT Sodium Potassium Chloride Carbon Dioxide Anion Gap BUN Creatinine Estim Creat Clear Calc Est GFR (MDRD) Af Amer Est GFR (MDRD) Non-Af BUN/Creatinine Ratio Glucose Calcium Phosphorus Albumin POC Glucose 254 H 262 H 273 H 07/30/18 07/30/18 07/30/18 17:04 19:54 23:53 WBC RBC Hgb Hct MCV MCH MCHC RDW RDW Differential Plt Count MPV Neut % (Auto) Absolute Neuts (auto) Total Counted APTT Sodium Potassium Chloride Carbon Dioxide Anion Gap BUN Creatinine Estim Creat Clear Calc Est GFR (MDRD) Af Amer Est GFR (MDRD) Non-Af BUN/Creatinine Ratio Glucose Calcium Phosphorus Albumin POC Glucose 252 H 234 H 205 H 07/31/18 07/31/18 07/31/18 04:20 04:20 04:20 WBC 14.7 H RBC 4.42 L Hgb 13.7 Hct 42.9 MCV 97.1 H MCH 31.0 MCHC 31.9 L RDW 14.0 RDW Differential 49.7 H Plt Count 301 MPV 10.9 Neut % (Auto) Not Reportable Absolute Neuts (auto) Not Reportable Total Counted Pending APTT 69.8 H Sodium 146 H Potassium 4.1 Chloride 100 Carbon Dioxide 36.0 H Anion Gap 10 BUN 78 H Creatinine 1.72 H Estim Creat Clear Calc 41.42 Est GFR (MDRD) Af Amer 52 L Est GFR (MDRD) Non-Af 43 L BUN/Creatinine Ratio 45.3 H Glucose 162 H Calcium 8.3 L Phosphorus Albumin POC Glucose 07/31/18 04:30 WBC RBC Hgb Hct MCV MCH MCHC RDW RDW Differential Plt Count MPV Neut % (Auto) Absolute Neuts (auto) Total Counted APTT Sodium Potassium Chloride Carbon Dioxide Anion Gap BUN Creatinine Estim Creat Clear Calc Est GFR (MDRD) Af Amer Est GFR (MDRD) Non-Af BUN/Creatinine Ratio Glucose Calcium Phosphorus Albumin POC Glucose 147 H Clinical Impression(s) from Imaging Studies KUB X-Ray 07/20/18 18:41 IMPRESSION: No evidence of obstruction or perforation. at 2003 Reported and signed by: Salinas Noriega MD Electronically Signed: Salinas Noriega, at 20:02 EST Tel , Service support , Chest X-Ray 07/20/18 19:30 IMPRESSION: No radiographic evidence of acute cardiopulmonary disease. at 2003 Reported and signed by: Salinas Noriega MD Electronically Signed: Salinas Noriega, at 20:02 EST Tel , Service support , Abdomen X-Ray 07/21/18 11:07 IMPRESSION: Diffuse distention of bowel most likely ileus. Distal colonic obstruction not likely but possible. at 0143 Reported and signed by: Salinas Noriega MD Electronically Signed: Salinas Noriega, at 1:42 EST Tel , Service support , Chest X-Ray 07/22/18 09:37 IMPRESSION: Findings concerning for multifocal pneumonia in the appropriate clinical setting with underlying alveolar edema not completely excluded. Recommend follow-up imaging in 4-6 weeks after appropriate treatment. Electronically Signed: Pacheco Galo DO at 9:56 EST , Service support , Chest CTA 07/22/18 17:51 IMPRESSION: No pulmonary embolus. Multifocal bilateral airspace disease in the lungs similar to the most recent chest radiograph but increased compared to 07/20/18 compatible with multifocal pneumonia versus a noninfectious inflammatory pneumonitis. Small, 4.0 cm, ascending thoracic aortic aneurysm with no hemorrhage or dissection. Individualized dose optimization techniques were used for this CT. at 1927 Reported and signed by: Salinas Noriega MD Electronically Signed: Salinas Noriega, at 19:26 EST Tel , Service support , Chest X-Ray 07/24/18 08:42 IMPRESSION: Progressive bilateral airspace disease. The tip of the endotracheal tube is at 4.1 cm proximal to the sunshine. The tip of the orogastric tube is in the body of the stomach. Electronically Signed: Shar Jonathan, at 14:18 EST , Service support , Chest X-Ray 07/25/18 08:20 IMPRESSION: Since prior study, there has been improved aeration of both lungs although residual bilateral airspace disease is seen. Electronically Signed: Shar Castillo, at 9:08 EST , Service support , Chest X-Ray 07/28/18 06:29 IMPRESSION: Since prior study, there has been mild improvement of the aeration of both lungs. Residual bilateral patchy infiltrates are seen. Electronically Signed: Shar Castillo, at 8:22 EST , Service support , KUB X-Ray 07/29/18 05:55 IMPRESSION: Nasogastric tube with its tip in the region of the stomach. Nonspecific gas pattern. Electronically Signed: Emmett Anaya MD at 8:37 EST Tel , Service support , Medical Necessity - Tobacco Use Smoking Status: Former smoker Tobacco Use: Non-smoker Assessment/Plan All Active Problems (Last Reviewed 07/20/18 @ 21:39 by Joaquín Laughlin DO) Acute bronchitis (Acute) Influenza A (Acute) Constipation (Acute) PAUL (acute kidney injury) (Acute) Atrial flutter (Acute) Paroxysmal atrial fibrillation (Acute) Hyperlipidemia (Acute) RECOMMENDATIONS: 1. Continue current supportive measures with lung protective ventilatory strategy. 2. Wean FiO2 and PEEP to maintain an oxygen saturation at or above 90%. 3. Recheck arterial blood gas this morning. 4. The patient appears to be developing a contraction alkalosis. Therefore, Lasix will be placed on hold. 5. Continue daily IV steroids. 6. Continue tube feeds as tolerated. Increase rate as tolerated. 7. Continue to wean sedation as tolerated. Can consider eventual transition to Precedex in the next 24 hours to help facilitate ventilator weaning. 8. Continue scheduled aerosol treatments and appropriate ICU prophylaxis. 9. Continue heparin drip and rate/rhythm control strategy per cardiology recommendations. IMPRESSIONS: 1. Acute hypoxemic respiratory failure secondary to influenza A infection and severe community-acquired pneumonia/evolving ARDS The patient has a questionable baseline history of COPD. He was seen in the pulmonary medicine clinic 1 year ago, at which time, pulmonary function studies were ordered. However, the patient never followed up. Although the patient was admitted to the hospital with influenza A and a plain film chest x-ray which was largely unremarkable, follow-up chest imaging subsequently revealed evidence of evolving multifocal pneumonia. The patient has essentially gone on to develop full-blown ARDS. He did require intubation on the morning of July 24. He has been maintained on a lung protective ventilator strategy. We will continue to wean FiO2 and PEEP to maintain an oxygen saturation at or above 90%. We will continue scheduled Atrovent and steroids as ordered. The patient's sedation regimen will be cautiously weaned as tolerated. The patient has already completed his course of Tamiflu and antibiotics. 2. New onset atrial flutter with rapid ventricular rate The patient did require bedside cardioversion on July 26. We will plan to continue medical management per cardiology recommendations. 3. Acute kidney injury Improving. Nephrology is currently following. Avoid nephrotoxic agents. Continue to monitor urine output. No current indication for renal replacement therapy. 4. Known history of pulmonary nodules The patient is actually past due for a repeat CT chest due to his previously identified pulmonary nodules in March 2017. 5. Obstructive sleep apnea The patient is currently noncompliant with the use of nocturnal noninvasive positive pressure ventilation. 6. Rheumatoid arthritis/atrial fibrillation status post ablation/coronary artery disease/tobacco dependency currently in remission Complicates care, management, recovery and prognosis. Continue home medications as indicated. Continue basal and sliding scale insulin regimen. Physical therapy to work with patient, once medically stabilized. TIME: 45 minutes of critical care time, independent of procedures, was spent addressing the patient's acute hypoxemic respiratory failure, influenza A infection, severe community-acquired pneumonia, ARDS, acute kidney injury, new onset atrial flutter with rapid ventricular rate, history of pulmonary nodules, obstructive sleep apnea, review of all data and collaboration with the care team. ([id number]) Code Visit 9xxxx: [id number] Critical care first hour
[2018-07-31] MEDS: CHLORHEXIDINE GLUC 2% CLOTH 1 EACH TOWELETTE TOPICAL (06:35)
--- NOTE | 2018-07-31 06:36 | PN_ITS ---
Subjective: The patient was seen and examined at the bedside this morning. Events from the last 24 hours have been reviewed. The patient is currently afebrile, hemodynamically stable and maintaining appropriate oxygen saturations on assist control with an FiO2 of 45% and PEEP of 8. The patient's propofol has been weaned to 15 mg and his fentanyl is currently infusing at 125 mg/h. He remains in normal sinus rhythm at the current time. He has still not yet had a bowel movement. He is currently tolerating trickle tube feeds. Creatinine is relatively stable at 1.72. The patient was noted to be overall net -1.2 L yesterday. He is now overall net +7.6 L for the admission. Objective: The patient's most recent lab work, culture data and imaging studies have all been personally reviewed. Chest imaging studies have all revealed significant multifocal bilateral infiltrates. Surface echocardiogram revealed mild concentric LVH with an ejection fraction of 55% and stage II diastolic dysfunction. Pulmonary artery systolic pressure was estimated to be 26 mmHg. The patient's rapid influenza screen was positive for influenza A. The remainder of his infectious workup, including sputum cultures have been unrevealing to date. General: - - Remains intubated, sedated and mechanically ventilated. No dyssynchrony noted. HEENT: Atraumatic, PERRLA, Normocephalic Oral: No Gingival or Mucosal Lesions/ Ulcerations, - - Endotracheal and OG tubes remain in place Neck: Supple, No Nodes, Trachea Midline Lungs: No rhonchi, No wheeze, No rales, Diminished Cardiovascular: Regular rate, Regular Rhythm, Normal S1, Normal S2, No murmurs, - - Currently in normal sinus rhythm Abdomen: Soft, Non Tender, Hypoactive Bowel Sounds, Obese Extremities: No clubbing, No cyanosis, Edema Skin: - - No significant change from previous. Musculoskeletal: No Tenderness to Palpation of Joints or Extremities Lymphatic: No Cervical, Supraclavicular, or Inguinal Adenopathy Neurological: - - No focal neurological deficits. Currently sedated with a RASS of -3. Vital Signs Temp Pulse Resp BP Pulse Ox 37.3 C 83 16 151/91 H 91 07/31/18 06:05 07/31/18 06:05 07/31/18 06:05 07/31/18 06:05 07/31/18 06:05 Oxygen Flow Rate (L/min) 15 Oxygen Delivery Method Mechanical Ventilator Weight: 246 lb 14.684 oz Body Mass Index (BMI) 38.6 Finger Stick Blood Glucose 200 Intake and Output for Last 24 Hours 07/29/18 07/30/18 07/31/18 22:59 23:59 23:59 Intake Total 973.7 / 973.7 Output Total 900 / 900 Balance 73.7 / 73.7 Labs (Last 48 Hours) 07/29/18 07/29/18 07/29/18 05:31 10:05 14:04 WBC RBC Hgb Hct MCV MCH MCHC RDW RDW Differential Plt Count MPV Neut % (Auto) Absolute Neuts (auto) Total Counted APTT Sodium Potassium Chloride Carbon Dioxide Anion Gap BUN Creatinine Estim Creat Clear Calc Est GFR (MDRD) Af Amer Est GFR (MDRD) Non-Af BUN/Creatinine Ratio Glucose Calcium Phosphorus Albumin POC Glucose 145 H 199 H 200 H 07/29/18 07/29/18 07/29/18 14:20 18:47 20:30 WBC RBC Hgb Hct MCV MCH MCHC RDW RDW Differential Plt Count MPV Neut % (Auto) Absolute Neuts (auto) Total Counted APTT 54.2 H 66.6 H Sodium Potassium Chloride Carbon Dioxide Anion Gap BUN Creatinine Estim Creat Clear Calc Est GFR (MDRD) Af Amer Est GFR (MDRD) Non-Af BUN/Creatinine Ratio Glucose Calcium Phosphorus Albumin POC Glucose 268 H 07/29/18 07/30/18 07/30/18 23:04 03:30 03:30 WBC RBC Hgb Hct MCV MCH MCHC RDW RDW Differential Plt Count MPV Neut % (Auto) Absolute Neuts (auto) Total Counted APTT 71.7 H Sodium 141 Potassium 4.4 Chloride 98 Carbon Dioxide 35.0 H Anion Gap BUN 68 H Creatinine 1.68 H Estim Creat Clear Calc 42.41 Est GFR (MDRD) Af Amer 53 L Est GFR (MDRD) Non-Af 44 L BUN/Creatinine Ratio 40.5 H Glucose 287 H Calcium 7.9 L Phosphorus 4.2 Albumin 2.4 L POC Glucose 315 H 07/30/18 07/30/18 07/30/18 03:48 05:52 12:09 WBC RBC Hgb Hct MCV MCH MCHC RDW RDW Differential Plt Count MPV Neut % (Auto) Absolute Neuts (auto) Total Counted APTT Sodium Potassium Chloride Carbon Dioxide Anion Gap BUN Creatinine Estim Creat Clear Calc Est GFR (MDRD) Af Amer Est GFR (MDRD) Non-Af BUN/Creatinine Ratio Glucose Calcium Phosphorus Albumin POC Glucose 254 H 262 H 273 H 07/30/18 07/30/18 07/30/18 17:04 19:54 23:53 WBC RBC Hgb Hct MCV MCH MCHC RDW RDW Differential Plt Count MPV Neut % (Auto) Absolute Neuts (auto) Total Counted APTT Sodium Potassium Chloride Carbon Dioxide Anion Gap BUN Creatinine Estim Creat Clear Calc Est GFR (MDRD) Af Amer Est GFR (MDRD) Non-Af BUN/Creatinine Ratio Glucose Calcium Phosphorus Albumin POC Glucose 252 H 234 H 205 H 07/31/18 07/31/18 07/31/18 04:20 04:20 04:20 WBC 14.7 H RBC 4.42 L Hgb 13.7 Hct 42.9 MCV 97.1 H MCH 31.0 MCHC 31.9 L RDW 14.0 RDW Differential 49.7 H Plt Count 301 MPV 10.9 Neut % (Auto) Not Reportable Absolute Neuts (auto) Not Reportable Total Counted Pending APTT 69.8 H Sodium 146 H Potassium 4.1 Chloride 100 Carbon Dioxide 36.0 H Anion Gap 10 BUN 78 H Creatinine 1.72 H Estim Creat Clear Calc 41.42 Est GFR (MDRD) Af Amer 52 L Est GFR (MDRD) Non-Af 43 L BUN/Creatinine Ratio 45.3 H Glucose 162 H Calcium 8.3 L Phosphorus Albumin POC Glucose 07/31/18 04:30 WBC RBC Hgb Hct MCV MCH MCHC RDW RDW Differential Plt Count MPV Neut % (Auto) Absolute Neuts (auto) Total Counted APTT Sodium Potassium Chloride Carbon Dioxide Anion Gap BUN Creatinine Estim Creat Clear Calc Est GFR (MDRD) Af Amer Est GFR (MDRD) Non-Af BUN/Creatinine Ratio Glucose Calcium Phosphorus Albumin POC Glucose 147 H Clinical Impression(s) from Imaging Studies KUB X-Ray 07/20/18 18:41 IMPRESSION: No evidence of obstruction or perforation. at 2003 Reported and signed by: Salinas Noriega MD Electronically Signed: Salinas Noriega, at 20:02 EST Tel , Service support , Chest X-Ray 07/20/18 19:30 IMPRESSION: No radiographic evidence of acute cardiopulmonary disease. at 2003 Reported and signed by: Salinas Noriega MD Electronically Signed: Salinas Noriega, at 20:02 EST Tel , Service support , Abdomen X-Ray 07/21/18 11:07 IMPRESSION: Diffuse distention of bowel most likely ileus. Distal colonic obstruction not likely but possible. at 0143 Reported and signed by: Salinas Noriega MD Electronically Signed: Salinas Noriega, at 1:42 EST Tel , Service support , Chest X-Ray 07/22/18 09:37 IMPRESSION: Findings concerning for multifocal pneumonia in the appropriate clinical setting with underlying alveolar edema not completely excluded. Recommend follow-up imaging in 4-6 weeks after appropriate treatment. Electronically Signed: Pacheco Galo DO at 9:56 EST , Service support , Chest CTA 07/22/18 17:51 IMPRESSION: No pulmonary embolus. Multifocal bilateral airspace disease in the lungs similar to the most recent chest radiograph but increased compared to 07/20/18 compatible with multifocal pneumonia versus a noninfectious inflammatory pneumonitis. Small, 4.0 cm, ascending thoracic aortic aneurysm with no hemorrhage or dissection. Individualized dose optimization techniques were used for this CT. at 1927 Reported and signed by: Salinas Noriega MD Electronically Signed: Salinas Noriega, at 19:26 EST Tel , Service support , Chest X-Ray 07/24/18 08:42 IMPRESSION: Progressive bilateral airspace disease. The tip of the endotracheal tube is at 4.1 cm proximal to the sunshine. The tip of the orogastric tube is in the body of the stomach. Electronically Signed: Shar Jonathan, at 14:18 EST , Service support , Chest X-Ray 07/25/18 08:20 IMPRESSION: Since prior study, there has been improved aeration of both lungs although residual bilateral airspace disease is seen. Electronically Signed: Shar Castillo, at 9:08 EST , Service support , Chest X-Ray 07/28/18 06:29 IMPRESSION: Since prior study, there has been mild improvement of the aeration of both lungs. Residual bilateral patchy infiltrates are seen. Electronically Signed: Shar Castillo, at 8:22 EST , Service support , KUB X-Ray 07/29/18 05:55 IMPRESSION: Nasogastric tube with its tip in the region of the stomach. Nonspecific gas pattern. Electronically Signed: Emmett Anaya MD at 8:37 EST Tel , Service support , Medical Necessity - Tobacco Use Smoking Status: Former smoker Tobacco Use: Non-smoker Assessment/Plan All Active Problems (Last Reviewed 07/20/18 @ 21:39 by Joaquín Laughlin DO) Acute bronchitis (Acute) Influenza A (Acute) Constipation (Acute) PAUL (acute kidney injury) (Acute) Atrial flutter (Acute) Paroxysmal atrial fibrillation (Acute) Hyperlipidemia (Acute) RECOMMENDATIONS: 1. Continue current supportive measures with lung protective ventilatory strategy. 2. Wean FiO2 and PEEP to maintain an oxygen saturation at or above 90%. 3. Recheck arterial blood gas this morning. 4. The patient appears to be developing a contraction alkalosis. Therefore, Lasix will be placed on hold. 5. Continue daily IV steroids. 6. Continue tube feeds as tolerated. Increase rate as tolerated. 7. Continue to wean sedation as tolerated. Can consider eventual transition to Precedex in the next 24 hours to help facilitate ventilator weaning. 8. Continue scheduled aerosol treatments and appropriate ICU prophylaxis. 9. Continue heparin drip and rate/rhythm control strategy per cardiology recommendations. IMPRESSIONS: 1. Acute hypoxemic respiratory failure secondary to influenza A infection and severe community-acquired pneumonia/evolving ARDS The patient has a questionable baseline history of COPD. He was seen in the pulmonary medicine clinic 1 year ago, at which time, pulmonary function studies were ordered. However, the patient never followed up. Although the patient was admitted to the hospital with influenza A and a plain film chest x-ray which was largely unremarkable, follow-up chest imaging subsequently revealed evidence of evolving multifocal pneumonia. The patient has essentially gone on to develop full-blown ARDS. He did require intubation on the morning of July 24. He has been maintained on a lung protective ventilator strategy. We will continue to wean FiO2 and PEEP to maintain an oxygen saturation at or above 90%. We will continue scheduled Atrovent and steroids as ordered. The patient's sedation regimen will be cautiously weaned as tolerated. The patient has already completed his course of Tamiflu and antibiotics. 2. New onset atrial flutter with rapid ventricular rate The patient did require bedside cardioversion on July 26. We will plan to continue medical management per cardiology recommendations. 3. Acute kidney injury Improving. Nephrology is currently following. Avoid nephrotoxic agents. Continue to monitor urine output. No current indication for renal replacement therapy. 4. Known history of pulmonary nodules The patient is actually past due for a repeat CT chest due to his previously identified pulmonary nodules in March 2017. 5. Obstructive sleep apnea The patient is currently noncompliant with the use of nocturnal noninvasive positive pressure ventilation. 6. Rheumatoid arthritis/atrial fibrillation status post ablation/coronary artery disease/tobacco dependency currently in remission Complicates care, management, recovery and prognosis. Continue home medications as indicated. Continue basal and sliding scale insulin regimen. Physical therapy to work with patient, once medically stabilized. TIME: 45 minutes of critical care time, independent of procedures, was spent addressing the patient's acute hypoxemic respiratory failure, influenza A infection, severe community-acquired pneumonia, ARDS, acute kidney injury, new onset atrial flutter with rapid ventricular rate, history of pulmonary nodules, obstructive sleep apnea, review of all data and collaboration with the care team. ([id number]) Code Visit 9xxxx: [id number] Critical care first hour
[2018-07-31 06:57] LABS: Lymphocyte 22 % (19-41); Metamyelocyte 1 % (0-1); Monocyte 2 % (0-10); Neutrophil-Band 4 % (0-5); Neutrophil-Segmented 70 % (47-70); Promyelocyte 1 (0-0); Total Cells Counted 100 (MANUAL DIFF)
[2018-07-31 06:58] LABS: Platelet Estimate ADEQUATE (ADEQ); Platelet Morphology LARGE; Red Cell Morphology NORM C+C NORMAL (NORM C&C)
[2018-07-31 07:01] LABS: Base Excess 16 mmol/L (-2 to +2); Bicarbonate 39.4 mmol/L (22-26); Blood Gas Specimen Type ART; FI02 45; Mode A-C; O2 Delivery Device Vent; PEEP 5; PO2 60 mmHG (75-100); RR 16; SITE R Radial; SO2 93 % (95-99); Time Given 655; Total Carbon Dioxide 41 mmol/L; Vt 500; pCO2 49.3 mmHg (35-45); pH 7.51 (7.35-7.45)
[2018-07-31 07:02] LABS: Absolute Nucleated RBC Count 0.02 10^3/uL (0-5); NRBC Flagged by Analyzer 0.2 % (0-5)
[2018-07-31 07:04] LABS: Absolute Lymphocyte Count 3.23 X10^3/ul (0.83-4.51); Absolute Neutrophil Count 10.9 X10^3/uL (2.0-7.7)
[2018-07-31] MEDS: fentaNYL drip 100 ML 5 MCG IV ×2 (07:18→17:00)
[2018-07-31] MEDS: Insulin Lispro 100 UNIT/ML INSULN.PEN SC ×4 (08:15→20:04)
[2018-07-31] MEDS: Famotidine 20 MG Tablet GT ×2 (08:20→21:16)
[2018-07-31] MEDS: Polyethylene Glycol 3350 17 GM PACKET GT ×2 (08:20→21:16)
[2018-07-31] MEDS: Senna/Docusate Sodium 1 Tablet 2 TABLET PO ×2 (08:20→21:17)
[2018-07-31] MEDS: Amiodarone 200 MG Tablet PO (08:20)
[2018-07-31] MEDS: Aspirin 81 MG TAB.CHEW GT (08:20)
[2018-07-31 08:21] LABS: Bedside Glucose 155 mg/dL (70-110)
[2018-07-31] MEDS: Folic Acid 1 MG Tablet GT (08:24)
[2018-07-31] MEDS: Chlorhexidine 15 ML PO ×2 (08:25→21:17)
[2018-07-31] MEDS: Vital AF 1.2 Cal Liquid 1,000 ML 10 ML GT (08:33)
--- NOTE | 2018-07-31 08:49 | PN.CARD_ITS ---
Subjectve: The patient remains mechanically intubated and ventilated. Objective: Vital Signs Temp Pulse Resp BP Pulse Ox 98.7 F 76 16 133/78 H 90 07/31/18 07:00 07/31/18 07:46 07/31/18 07:00 07/31/18 07:00 07/31/18 07:00 Oxygen Flow Rate (L/min) 15 Oxygen Delivery Method Mechanical Ventilator Weight: 246 lb 14.684 oz Body Mass Index (BMI) 38.6 Finger Stick Blood Glucose 200 Intake and Output for Last 24 Hours 07/29/18 07/30/18 07/31/18 22:59 23:59 23:59 Intake Total 973.7 / 973.7 Output Total 900 / 900 Balance 73.7 / 73.7 Lungs: - - Scattered rhonchi Cardiovascular: Regular Rhythm, Normal S1, Normal S2 Abdomen: Bowel Sounds Present, Soft Extremities: Trace RLE Edema, Trace LLE Edema 07/31/18 04:20: APTT 69.8 H 07/31/18 04:20: WBC 14.7 H, RBC 4.42 L, Hgb 13.7, Hct 42.9, MCV 97.1 H, MCH 31.0, MCHC 31.9 L, RDW 14.0, RDW Differential 49.7 H, Plt Count 301, MPV 10.9, Neut % (Auto) Not Reportable, Absolute Neuts (auto) 10.9 H, Total Counted 100, Neutrophils % (Manual) 70, Band Neutrophils % 4, Lymphocytes % (Manual) 22, Monocytes % (Manual) 2, Metamyelocytes % 1, Promyelocytes % 1 H, Nucleated RBC % 0.2 07/31/18 04:20: Sodium 146 H, Potassium 4.1, Chloride 100, Carbon Dioxide 36.0 H , Anion Gap 10, BUN 78 H, Creatinine 1.72 H, Est GFR (MDRD) Af Amer 52 L, Est GFR (MDRD) Non-Af 43 L, BUN/Creatinine Ratio 45.3 H, Glucose 162 H, Calcium 8.3 L 07/31/18 06:56: pH 7.51 H, Bicarbonate Actual 39.4 H, POC Total CO2 41, Base Excess 16 H, O2 Saturation 93 L, ABG pCO2 49.3 H, ABG pO2 60 L Rhythm: Sinus rhythm; an episode appearing compatible with paroxysmal atrial fibrillation with spontaneous return to sinus rhythm Medical Necessity - Tobacco Use Smoking Status: Former smoker Tobacco Use: Non-smoker Assessment/Plan 1. Atrial flutter The patient continues in sinus rhythm at this time. He did have an episode earlier this day appearing compatible with paroxysmal atrial fibrillation with spontaneous return to sinus rhythm. He is continuing antiarrhythmic therapy at this time. Depending upon his cardiac clinical course and cardiac rhythm his dose may need to be adjusted. He is continuing anticoagulant therapy with IV heparin. 2. Atrial fibrillation status post EPS/RFA Again he had an episode earlier this day appearing compatible with paroxysmal atrial fibrillation with spontaneous return to sinus rhythm. He will continue his antiarrhythmic therapy with amiodarone at this time. Depending upon his clinical course, cardiac rate, etc. his dose may need to be adjusted. He is continuing anticoagulant therapy with IV heparin. 3. CAD status post RCA PTCA/RACHEL He will need to be monitored for any obvious involvement of his coronary artery system. Thus far his troponin I level was negative. He has remained hemodynamically stable. He has not had no acute changes on his ECG. He will continue medical management as tolerated. 4. Hyperlipidemia He will continue lipid-lowering therapy as tolerated. 5. Hypertension His blood pressure appears to be stable to elevated at this time. He will continue medical adjustment as needed. 6. Influenza A The patient remains on the ventilator at this time. He will continue evaluation care per pulmonology/critical care medicine. 7. Acute renal insufficiency His BUN and creatinine will need to be followed. This may impact his medications, etc. Comment: The patient's case was discussed and reviewed with Dr. Ponce pulmonology and critical care medicine. This note was generated using a voice recognition system and there may be incorrect words, spelling or punctuation that were not noted when reviewing the office note prior to saving.
--- NOTE | 2018-07-31 10:49 | PCM.PROGNOTE ---
Patient Problems: Active and Suspected Problems (Last Reviewed 07/20/18 @ 21:39 by Joaquín Laughlin DO) Acute bronchitis (Acute) Influenza A (Acute) Constipation (Acute) PAUL (acute kidney injury) (Acute) Atrial flutter (Acute) Subjective: The patient is a 63-year-old male with a past medical history of tobacco dependence, chronic atrial fibrillation status post ablation, coronary artery disease with history of PCI, hyperlipidemia and hypertension who was admitted to the hospital on 07/20/2018 with PNA presumed secondary to influenza A. He subsequently experienced Acute hypoxic respiratory failure and was transferred to the intensive care unit and intubated. Day #8 ventilator All events of the past 24 hours of been reviewed. He is afebrile. Vital signs are stable. FiO2 has been weaned down to 40% and he is 92-93%. PEEP is 8. Fluid balance since admission is +[phone]. Fluid balance on 07/30/2018 is -1239. All lab was personally reviewed. The white blood cell count today is 14.7, up from 13.6 on 07/29/2018. Hemoglobin is 13.7 and platelets are within normal limits. Most recent PTT is 69.8. ABG today showed pH of 7.51, PCO2 of 49 and a PO2 of 60 on a 45% FiO2. Sodium is increased at 146 and serum bicarb is increased at 36. BUN is 78 with a creatinine of 1.72 which is down from 2.16 on 07/26/2018. Blood sugars are improving. Microbiology: Blood cultures had no growth after 5 days, initial sputum grew mixed normal respiratory laverne and the sputum sent on 07/24/2018 is growing presumptive Yomaira albicans. Radiology: The most recent chest x-ray was on 07/28/2018 and shows multilobar infiltrates. Echo: 55% EF with mild concentric left ventricular hypertrophy and stage II diastolic dysfunction. Pulmonary artery systolic pressure was estimated at 26. - Physical Exam General: - - Sedated and intubated on mechanical ventilation HEENT: Atraumatic, PERRLA, EOMI, Normocephalic Oral: No Gingival or Mucosal Lesions/ Ulcerations, Dry Mucosa Neck: Supple, No JVD, Negative Carotid Bruits Lungs: Diminished Cardiovascular: Regular rate, Regular Rhythm, Normal S1, Normal S2, No murmurs, No rub noted, No Gallop Abdomen: Bowel Sounds Present, Soft, Non Tender, Obese Extremities: No clubbing, No cyanosis, Edema - Mild Skin: No rashes, No breakdown Neurological: Cranial nerves II-XII grossly intact, Neuro grossly intact, - - No focal neurologic deficits Vital Signs Temp Pulse Resp BP Pulse Ox 98.7 F 76 16 114/62 90 07/31/18 07:00 07/31/18 10:48 07/31/18 10:48 07/31/18 09:00 07/31/18 10:48 Oxygen Flow Rate (L/min) 15 Oxygen Delivery Method Mechanical Ventilator Weight: 246 lb 14.684 oz Body Mass Index (BMI) 38.6 Finger Stick Blood Glucose 200 Intake and Output for Last 24 Hours 07/29/18 07/30/18 07/31/18 22:59 23:59 23:59 Intake Total 1073.7 / 1073.7 Output Total 900 / 900 Balance 173.7 / 173.7 Laboratory Tests Past 24 Hrs 07/31/18 07/31/18 07/31/18 04:20 04:20 04:20 WBC 14.7 H RBC 4.42 L Hgb 13.7 Hct 42.9 MCV 97.1 H MCH 31.0 MCHC 31.9 L RDW 14.0 RDW Differential 49.7 H Plt Count 301 MPV 10.9 Neut % (Auto) Not Reportable Absolute Neuts (auto) 10.9 H Absolute Lymphs (auto) 3.23 Total Counted 100 Neutrophils % (Manual) 70 Band Neutrophils % 4 Lymphocytes % (Manual) 22 Monocytes % (Manual) 2 Metamyelocytes % 1 Promyelocytes % 1 H Nucleated RBC % 0.2 Diff Path Review May foll Platelet Estimate ADEQUATE Plt Morphology Comment LARGE RBC Morphology NORM C+C Absolute Retic 0.02 APTT 69.8 H Specimen Type Sample Site pH Bicarbonate Actual POC Total CO2 Base Excess O2 Saturation O2 % ABG pCO2 ABG pO2 Respiration Rate O2 Delivery Device Vent Mode Tidal Volume POC PEEP Blood Gas Notified Whom Blood Gas Notified Time Sodium 146 H Potassium 4.1 Chloride 100 Carbon Dioxide 36.0 H Anion Gap 10 BUN 78 H Creatinine 1.72 H Estim Creat Clear Calc 41.42 Est GFR (MDRD) Af Amer 52 L Est GFR (MDRD) Non-Af 43 L BUN/Creatinine Ratio 45.3 H Glucose 162 H Calcium 8.3 L 07/31/18 06:56 WBC RBC Hgb Hct MCV MCH MCHC RDW RDW Differential Plt Count MPV Neut % (Auto) Absolute Neuts (auto) Absolute Lymphs (auto) Total Counted Neutrophils % (Manual) Band Neutrophils % Lymphocytes % (Manual) Monocytes % (Manual) Metamyelocytes % Promyelocytes % Nucleated RBC % Diff Path Review Platelet Estimate Plt Morphology Comment RBC Morphology Absolute Retic APTT Specimen Type ART Sample Site R Radial pH 7.51 H Bicarbonate Actual 39.4 H POC Total CO2 41 Base Excess 16 H O2 Saturation 93 L O2 % 45 ABG pCO2 49.3 H ABG pO2 60 L Respiration Rate 16 O2 Delivery Device Vent Vent Mode A-C Tidal Volume 500 POC PEEP 5 Blood Gas Notified Whom ICU Blood Gas Notified Time 655 Sodium Potassium Chloride Carbon Dioxide Anion Gap BUN Creatinine Estim Creat Clear Calc Est GFR (MDRD) Af Amer Est GFR (MDRD) Non-Af BUN/Creatinine Ratio Glucose Calcium POC Glucose 07/31/18 07/31/18 07/30/18 08:13 04:30 23:53 POC Glucose 155 H 147 H 205 H 07/30/18 07/30/18 07/30/18 19:54 17:04 12:09 POC Glucose 234 H 252 H 273 H Medical Necessity - Tobacco Use Smoking Status: Former smoker Tobacco Use: Non-smoker Assessment/Plan All Active Problems (Last Reviewed 07/20/18 @ 21:39 by Joaquín Laughlin DO) Acute bronchitis (Acute) Influenza A (Acute) Constipation (Acute) PAUL (acute kidney injury) (Acute) Atrial flutter (Acute) Paroxysmal atrial fibrillation (Acute) Hyperlipidemia (Acute) Impressions 1. Severe sepsis secondary to influenza A with community-acquired pneumonia and acute respiratory failure with hypoxemia 2. Acute respiratory failure with hypoxemia 3. Influenza A 4. Severe community-acquired pneumonia 5. Known history of pulmonary nodules 6. Obstructive sleep apnea-noncompliant with nocturnal noninvasive positive pressure ventilation 7. Rheumatoid arthritis-on methotrexate 8. Atrial fibrillation-status post ablation 9. Coronary artery disease with history of PCI 10. History of tobacco dependence in remission 11. Acute renal failure-improving 12. Diabetes mellitus type 2, uncontrolled-hemoglobin A1c 9.3 13. Metabolic alkalosis-suspect secondary to diuretics/volume contraction 14. Severe malnutrition Wean FiO2 and PEEP to maintain oxygen saturation greater than 90% Continue Precedex Lasix has been discontinued for the time being due to metabolic alkalosis Continue intravenous steroids Continue tube feeds Continue aerosolized bronchodilators Continue anticoagulation with heparin Continue Pepcid twice daily per the NG tube for ulcer prophylaxis Adjust the insulin regimen to maintain blood sugars less than 200...add mag Yovany in a.m. Code Visit Inpatient E&M: 75677 Subs Hosp L3
--- NOTE | 2018-07-31 11:13 | PCM.PN.REN ---
Patient Problems: Active and Suspected Problems (Last Reviewed 07/20/18 @ 21:39 by Joaquín Laughlin DO) Acute bronchitis (Acute) Influenza A (Acute) Constipation (Acute) CAMELIA (acute kidney injury) (Acute) Atrial flutter (Acute) Subjective: Pt remains intubated and sedated. FIo2 40% Cannot do ROS - Physical Exam General: - - Intubated and sedated HEENT: Atraumatic Oral: Moist Mucosa, - - ET in place Lungs: - - Equal air entry. B/L rhonchi Cardiovascular: Regular rate, Regular Rhythm, Normal S1, Normal S2 Abdomen: Bowel Sounds Present, Soft Extremities: No clubbing, No cyanosis, No edema Skin: No rashes Musculoskeletal: No Muscle Wasting Neurological: - - sedated Vital Signs Temp Pulse Resp BP Pulse Ox 98.7 F 71 16 114/62 90 07/31/18 07:00 07/31/18 10:50 07/31/18 10:50 07/31/18 09:00 07/31/18 10:48 Oxygen Flow Rate (L/min) 15 Oxygen Delivery Method Mechanical Ventilator Weight: 112 kg Body Mass Index (BMI) 38.6 Finger Stick Blood Glucose 200 Intake and Output for Last 24 Hours 07/29/18 07/30/18 07/31/18 22:59 23:59 23:59 Intake Total 1073.7 / 1073.7 Output Total 900 / 900 Balance 173.7 / 173.7 Laboratory Tests Past 24 Hrs 07/31/18 07/31/18 07/31/18 04:20 04:20 04:20 WBC 14.7 H RBC 4.42 L Hgb 13.7 Hct 42.9 MCV 97.1 H MCH 31.0 MCHC 31.9 L RDW 14.0 RDW Differential 49.7 H Plt Count 301 MPV 10.9 Neut % (Auto) Not Reportable Absolute Neuts (auto) 10.9 H Absolute Lymphs (auto) 3.23 Total Counted 100 Neutrophils % (Manual) 70 Band Neutrophils % 4 Lymphocytes % (Manual) 22 Monocytes % (Manual) 2 Metamyelocytes % 1 Promyelocytes % 1 H Nucleated RBC % 0.2 Diff Path Review May foll Platelet Estimate ADEQUATE Plt Morphology Comment LARGE RBC Morphology NORM C+C Absolute Retic 0.02 APTT 69.8 H Specimen Type Sample Site pH Bicarbonate Actual POC Total CO2 Base Excess O2 Saturation O2 % ABG pCO2 ABG pO2 Respiration Rate O2 Delivery Device Vent Mode Tidal Volume POC PEEP Blood Gas Notified Whom Blood Gas Notified Time Sodium 146 H Potassium 4.1 Chloride 100 Carbon Dioxide 36.0 H Anion Gap 10 BUN 78 H Creatinine 1.72 H Estim Creat Clear Calc 41.42 Est GFR (MDRD) Af Amer 52 L Est GFR (MDRD) Non-Af 43 L BUN/Creatinine Ratio 45.3 H Glucose 162 H Calcium 8.3 L 07/31/18 06:56 WBC RBC Hgb Hct MCV MCH MCHC RDW RDW Differential Plt Count MPV Neut % (Auto) Absolute Neuts (auto) Absolute Lymphs (auto) Total Counted Neutrophils % (Manual) Band Neutrophils % Lymphocytes % (Manual) Monocytes % (Manual) Metamyelocytes % Promyelocytes % Nucleated RBC % Diff Path Review Platelet Estimate Plt Morphology Comment RBC Morphology Absolute Retic APTT Specimen Type ART Sample Site R Radial pH 7.51 H Bicarbonate Actual 39.4 H POC Total CO2 41 Base Excess 16 H O2 Saturation 93 L O2 % 45 ABG pCO2 49.3 H ABG pO2 60 L Respiration Rate 16 O2 Delivery Device Vent Vent Mode A-C Tidal Volume 500 POC PEEP 5 Blood Gas Notified Whom ICU MD Blood Gas Notified Time 655 Sodium Potassium Chloride Carbon Dioxide Anion Gap BUN Creatinine Estim Creat Clear Calc Est GFR (MDRD) Af Amer Est GFR (MDRD) Non-Af BUN/Creatinine Ratio Glucose Calcium POC Glucose 07/31/18 07/31/18 07/30/18 08:13 04:30 23:53 POC Glucose 155 H 147 H 205 H 07/30/18 07/30/18 07/30/18 19:54 17:04 12:09 POC Glucose 234 H 252 H 273 H Medical Necessity - Tobacco Use Smoking Status: Former smoker Tobacco Use: Non-smoker Assessment/Plan All Active Problems (Last Reviewed 07/20/18 @ 21:39 by Joaquín Laughlin DO) Acute bronchitis (Acute) Influenza A (Acute) Constipation (Acute) CAMELIA (acute kidney injury) (Acute) Atrial flutter (Acute) Paroxysmal atrial fibrillation (Acute) Hyperlipidemia (Acute) 1. Acute kidney onjury. Normal baseline renal function. Camelia is 2/2 ischemic ATN.Cr peaked at 2.1 on 07/25 Renal function improved. Pt did not need [employer].Cr is stable for the last 24 hours at 1.7 ng/dL.BUN continues to rise from steroid and NGT feeding Non oliguric No need for dialysis. Avoid nephrotoxins (NSAID or IV contrast).Keep MAP>65 Will continue to monitor for kidney function recovery 2- Hypernatremia :Na is 146. might be related to polyuria from ATN recovery . If Na worsens , Please increase free water flushes through NGT 3- Acute hypoxic respiratory failure due to Influenza, CAP/ARDS. vent dependent. Vent management and Abx as per pulm/CCM. 4- Aflutter. now sinus. Cardiology service is following Renal team will continue to follow. Please call with any question or concern Isaura Weldon MD [phone]
[2018-07-31] MEDS: HEPARIN/D5w 25,000 UNITS 25,000 UNITS/250 ML IV.SOLN. 16 UNITS IV (12:33)
[2018-07-31 12:41] LABS: Bedside Glucose 225 mg/dL (70-110)
--- NOTE | 2018-07-31 15:33 | CHAPLAIN ---
Type of Pastoral Visit ___ Initial Visit _x__ Follow-up Visit ___ On-call Visit ___ General Patient Visit ___ Spiritual Assessment ___ Family Conference ___ Bereavement ___ Rapid Response ___ Code Blue ___ Other (describe below) Pastoral Care Referral From ___ Patient _x__ Family ___ Nurse ___ Physician ___ Cycle Counter ___ Development Geologist ___ Other (describe below) Sacrament/Intervention _x__ Active listening ___ Anointing ___ Hoahaoism ___ Bereavement ___ Communion ___ Jenna exploration ___ _x__ Life review _x__ Prayer ___ Reconciliation ___ Sacrament of Sick _x__ Supportive presence ___ Wedding ___ Other (describe below) Pastoral Comments patient is still intubated but has shown signs of improved responsiveness; spouse is in room and is talkative; spouse speaks of great encouragement and thankfulness for the progress and good care; spouse is welcoming of spiritual support and presence; spouse desires continual support and says she is hopeful about outcome
[2018-07-31 16:11] LABS: Bedside Glucose 268 mg/dL (70-110)
--- NOTE | 2018-07-31 16:20 | PCM.PN.ID ---
Patient Problems: Active and Suspected Problems (Last Reviewed 07/20/18 @ 21:39 by Joaquín Laughlin DO) Acute bronchitis (Acute) Influenza A (Acute) Constipation (Acute) PAUL (acute kidney injury) (Acute) Atrial flutter (Acute) Subjective: Improving on vent, at bedside. - Physical Exam General: No apparent distress Lungs: Diminished Cardiovascular: Regular rate, Regular Rhythm Abdomen: Soft, Non Tender, Non-Distended Skin: No rashes Vital Signs Temp Pulse Resp BP Pulse Ox 98.8 F 61 16 120/65 92 07/31/18 13:00 07/31/18 16:11 07/31/18 16:11 07/31/18 15:00 07/31/18 16:11 Oxygen Flow Rate (L/min) 15 Oxygen Delivery Method Mechanical Ventilator Weight: 112 kg Body Mass Index (BMI) 38.6 Finger Stick Blood Glucose 200 Intake and Output for Last 24 Hours 07/29/18 07/30/18 07/31/18 22:59 23:59 23:59 Intake Total 1607.7 / 1607.7 Output Total 1250 / 1250 Balance 357.7 / 357.7 Laboratory Tests Past 24 Hrs 07/31/18 07/31/18 07/31/18 04:20 04:20 04:20 WBC 14.7 H RBC 4.42 L Hgb 13.7 Hct 42.9 MCV 97.1 H MCH 31.0 MCHC 31.9 L RDW 14.0 RDW Differential 49.7 H Plt Count 301 MPV 10.9 Neut % (Auto) Not Reportable Absolute Neuts (auto) 10.9 H Absolute Lymphs (auto) 3.23 Total Counted 100 Neutrophils % (Manual) 70 Band Neutrophils % 4 Lymphocytes % (Manual) 22 Monocytes % (Manual) 2 Metamyelocytes % 1 Promyelocytes % 1 H Nucleated RBC % 0.2 Diff Path Review May foll Platelet Estimate ADEQUATE Plt Morphology Comment LARGE RBC Morphology NORM C+C Absolute Retic 0.02 APTT 69.8 H Specimen Type Sample Site pH Bicarbonate Actual POC Total CO2 Base Excess O2 Saturation O2 % ABG pCO2 ABG pO2 Respiration Rate O2 Delivery Device Vent Mode Tidal Volume POC PEEP Blood Gas Notified Whom Blood Gas Notified Time Sodium 146 H Potassium 4.1 Chloride 100 Carbon Dioxide 36.0 H Anion Gap 10 BUN 78 H Creatinine 1.72 H Estim Creat Clear Calc 41.42 Est GFR (MDRD) Af Amer 52 L Est GFR (MDRD) Non-Af 43 L BUN/Creatinine Ratio 45.3 H Glucose 162 H Calcium 8.3 L 07/31/18 06:56 WBC RBC Hgb Hct MCV MCH MCHC RDW RDW Differential Plt Count MPV Neut % (Auto) Absolute Neuts (auto) Absolute Lymphs (auto) Total Counted Neutrophils % (Manual) Band Neutrophils % Lymphocytes % (Manual) Monocytes % (Manual) Metamyelocytes % Promyelocytes % Nucleated RBC % Diff Path Review Platelet Estimate Plt Morphology Comment RBC Morphology Absolute Retic APTT Specimen Type ART Sample Site R Radial pH 7.51 H Bicarbonate Actual 39.4 H POC Total CO2 41 Base Excess 16 H O2 Saturation 93 L O2 % 45 ABG pCO2 49.3 H ABG pO2 60 L Respiration Rate 16 O2 Delivery Device Vent Vent Mode A-C Tidal Volume 500 POC PEEP 5 Blood Gas Notified Whom ICU MD Blood Gas Notified Time 655 Sodium Potassium Chloride Carbon Dioxide Anion Gap BUN Creatinine Estim Creat Clear Calc Est GFR (MDRD) Af Amer Est GFR (MDRD) Non-Af BUN/Creatinine Ratio Glucose Calcium POC Glucose 07/31/18 07/31/18 07/31/18 16:01 12:28 08:13 POC Glucose 268 H 225 H 155 H 07/31/18 07/30/18 07/30/18 04:30 23:53 19:54 POC Glucose 147 H 205 H 234 H 07/30/18 17:04 POC Glucose 252 H Medical Necessity - Tobacco Use Smoking Status: Former smoker Tobacco Use: Non-smoker Route of nutrition/ use of supplements: [] Nutritional Intake: [] IV Site: [] Qiu Catheter: [] - Assessment/Plan Antibiotics: [] Assessment/Plan: [] Active and Suspected Problems (Last Reviewed 07/20/18 @ 21:39 by Joaquín Laughlin DO) Acute bronchitis (Acute) Influenza A (Acute) Constipation (Acute) Acute hypoxic resp failure with ARDS and flu A - complicated by PAUL. Completed tamiflu 07/26. Completed zosyn 07/28, improving off of abx. Will follow as needed, please call with any questions.
[2018-07-31 20:21] LABS: Bedside Glucose 218 mg/dL (70-110)
[2018-07-31] MEDS: Pravastatin 80 MG Tablet PO (21:16)
[2018-08-01] VITALS (39 sets, daily range): BP systolic 116–173; BP diastolic 63–80; PULSE 56–87; RESP 16–26; TEMP 36.7–37.7; O2SAT 86–98
[2018-08-01 00:11] LABS: Bedside Glucose 201 mg/dL (70-110)
[2018-08-01] MEDS: fentaNYL drip 100 ML 5 MCG IV (02:59)
[2018-08-01] MEDS: Ipratropium 0.5 MG/2.5 ML SOLUTION INHALATION ×6 (03:05→22:42)
[2018-08-01] MEDS: Insulin Lispro 100 UNIT/ML INSULN.PEN SC ×5 (04:16→18:49)
[2018-08-01] MEDS: CHLORHEXIDINE GLUC 2% CLOTH 1 EACH TOWELETTE TOPICAL (04:18)
[2018-08-01] MEDS: 0.9% NaCl Peripheral Flush Adult/Peds IV (04:18)
[2018-08-01 04:42] LABS: Partial Thromboplast Time 55.2 Seconds (24.1-36.2)
[2018-08-01 05:08] LABS: ALB/GLOB Ratio 0.6 RATIO (0.9-2.4); AST(SGOT) 33 U/L (15-37); Alanine Aminotransfer ALT/SGPT 51 U/L (16-61); Albumin, Serum 2.3 g/dL (3.2-5.0); Alkaline Phosphatase 53 U/L (45-117); Anion Gap 11 (5-15); BUN 68 mg/dL (7-18); BUN/Creat Ratio 43.3 RATIO (10-20); Calcium,Total 8.1 mg/dL (8.5-10.1); Chloride 103 mmol/L (98-107); Creatinine, Serum 1.57 mg/dL (0.70-1.30); EST Glomerular Filtration Rate 47 mL/min (>60); Est Glom Filt Rate - Afr Amer 57 mL/min (>60); Estimated Creatinine Clearance 45.38 ml/min; Globulin 3.9 g/dL (2.2-4.2); Glucose 252 mg/dL (74-106); Magnesium 2.8 mg/dL (1.6-2.6); Potassium 3.8 mmol/L (3.5-5.1); Protein, Total 6.2 g/dL (6.4-8.2); Sodium Level 147 mmol/L (136-145)
[2018-08-01 05:46] LABS: Bedside Glucose 239 mg/dL (70-110)
--- NOTE | 2018-08-01 06:13 | PN_ITS ---
Subjective: The patient was seen and examined at the bedside this morning. Events from the last 24 hours have been reviewed. The patient is currently afebrile, hemodynamically stable and maintaining appropriate oxygen saturations with an FiO2 requirement of 40% and PEEP of 5. The patient's creatinine continues to improve this morning. His serum bicarbonate is trending downward. He is currently documented to be overall net +7.6 L for the admission. Early this morning, I was notified by the respiratory staff that the patient's airplane pilot photogrammetry balloon on his endotracheal tube had ruptured. It was no longer holding any air. An audible air leak was noted at the bedside along with poor return volumes. The patient's sedation was subsequently increased. His OG tube was placed to suction. The patient was medicated with etomidate and succinylcholine. I then performed an endotracheal tube exchange without complication. A plain film chest x-ray is currently pending to confirm placement. The patient's sedation was able to be weaned back down to the following: Precedex at 0.4 and fentanyl at 50 mcg. Objective: The patient's most recent lab work, culture data and imaging studies have all been personally reviewed. Chest imaging studies have all revealed significant multifocal bilateral infiltrates. Surface echocardiogram revealed mild concentric LVH with an ejection fraction of 55% and stage II diastolic dysfunction. Pulmonary artery systolic pressure was estimated to be 26 mmHg. The patient's rapid influenza screen was positive for influenza A. The remainder of his infectious workup, including sputum cultures have been unrevealing to date. General: - - Remains intubated, sedated and mechanically ventilated. HEENT: Atraumatic, PERRLA, Normocephalic Oral: No Gingival or Mucosal Lesions/ Ulcerations, - - Endotracheal and OG tubes remain in place. Audible air leak noted from the endotracheal tube. Neck: Supple, No Nodes, Trachea Midline Lungs: No rhonchi, No wheeze, No rales, Diminished Cardiovascular: Regular rate, Regular Rhythm, Normal S1, Normal S2, No murmurs, - - Currently in normal sinus rhythm on telemetry Abdomen: Bowel Sounds Present, Soft, Non Tender, Obese Extremities: No clubbing, No cyanosis, Edema Skin: - - No significant change from previous. Musculoskeletal: No Tenderness to Palpation of Joints or Extremities, No Muscle Wasting Lymphatic: No Cervical, Supraclavicular, or Inguinal Adenopathy Neurological: - - No focal neurological deficits. Vital Signs Temp Pulse Resp BP Pulse Ox 36.9 C 75 24 H 160/72 H 95 08/01/18 05:00 08/01/18 05:20 08/01/18 05:20 08/01/18 05:00 08/01/18 05:20 Oxygen Flow Rate (L/min) 15 Oxygen Delivery Method Mechanical Ventilator Weight: 246 lb 14.684 oz Body Mass Index (BMI) 38.6 Finger Stick Blood Glucose 200 Intake and Output for Last 24 Hours 07/30/18 07/31/18 08/01/18 23:59 23:59 23:59 Intake Total 2033.7 / 2033.7 1075.0 / 1075.0 Output Total 1925 / 1925 1100 / 1100 Balance 108.7 / 108.7 -25.0 / -25.0 Labs (Last 48 Hours) 07/30/18 07/30/18 07/30/18 12:09 17:04 19:54 WBC RBC Hgb Hct MCV MCH MCHC RDW RDW Differential Plt Count MPV Neut % (Auto) Absolute Neuts (auto) Absolute Lymphs (auto) Total Counted Neutrophils % (Manual) Band Neutrophils % Lymphocytes % (Manual) Monocytes % (Manual) Metamyelocytes % Promyelocytes % Nucleated RBC % Diff Path Review Platelet Estimate Plt Morphology Comment RBC Morphology Absolute Retic APTT Specimen Type Sample Site pH Bicarbonate Actual POC Total CO2 Base Excess O2 Saturation O2 % ABG pCO2 ABG pO2 Respiration Rate O2 Delivery Device Vent Mode Tidal Volume POC PEEP Blood Gas Notified Whom Blood Gas Notified Time Sodium Potassium Chloride Carbon Dioxide Anion Gap BUN Creatinine Estim Creat Clear Calc Est GFR (MDRD) Af Amer Est GFR (MDRD) Non-Af BUN/Creatinine Ratio Glucose Calcium Magnesium Total Bilirubin AST ALT Alkaline Phosphatase Total Protein Albumin Globulin Albumin/Globulin Ratio POC Glucose 273 H 252 H 234 H 07/30/18 07/31/18 07/31/18 23:53 04:20 04:20 WBC 14.7 H RBC 4.42 L Hgb 13.7 Hct 42.9 MCV 97.1 H MCH 31.0 MCHC 31.9 L RDW 14.0 RDW Differential 49.7 H Plt Count 301 MPV 10.9 Neut % (Auto) Not Reportable Absolute Neuts (auto) 10.9 H Absolute Lymphs (auto) 3.23 Total Counted 100 Neutrophils % (Manual) 70 Band Neutrophils % 4 Lymphocytes % (Manual) 22 Monocytes % (Manual) 2 Metamyelocytes % 1 Promyelocytes % 1 H Nucleated RBC % 0.2 Diff Path Review May foll Platelet Estimate ADEQUATE Plt Morphology Comment LARGE RBC Morphology NORM C+C Absolute Retic 0.02 APTT 69.8 H Specimen Type Sample Site pH Bicarbonate Actual POC Total CO2 Base Excess O2 Saturation O2 % ABG pCO2 ABG pO2 Respiration Rate O2 Delivery Device Vent Mode Tidal Volume POC PEEP Blood Gas Notified Whom Blood Gas Notified Time Sodium Potassium Chloride Carbon Dioxide Anion Gap BUN Creatinine Estim Creat Clear Calc Est GFR (MDRD) Af Amer Est GFR (MDRD) Non-Af BUN/Creatinine Ratio Glucose Calcium Magnesium Total Bilirubin AST ALT Alkaline Phosphatase Total Protein Albumin Globulin Albumin/Globulin Ratio POC Glucose 205 H 07/31/18 07/31/18 07/31/18 04:20 04:30 06:56 WBC RBC Hgb Hct MCV MCH MCHC RDW RDW Differential Plt Count MPV Neut % (Auto) Absolute Neuts (auto) Absolute Lymphs (auto) Total Counted Neutrophils % (Manual) Band Neutrophils % Lymphocytes % (Manual) Monocytes % (Manual) Metamyelocytes % Promyelocytes % Nucleated RBC % Diff Path Review Platelet Estimate Plt Morphology Comment RBC Morphology Absolute Retic APTT Specimen Type ART Sample Site R Radial pH 7.51 H Bicarbonate Actual 39.4 H POC Total CO2 41 Base Excess 16 H O2 Saturation 93 L O2 % 45 ABG pCO2 49.3 H ABG pO2 60 L Respiration Rate 16 O2 Delivery Device Vent Vent Mode A-C Tidal Volume 500 POC PEEP 5 Blood Gas Notified Whom ICU MD Blood Gas Notified Time 655 Sodium 146 H Potassium 4.1 Chloride 100 Carbon Dioxide 36.0 H Anion Gap 10 BUN 78 H Creatinine 1.72 H Estim Creat Clear Calc 41.42 Est GFR (MDRD) Af Amer 52 L Est GFR (MDRD) Non-Af 43 L BUN/Creatinine Ratio 45.3 H Glucose 162 H Calcium 8.3 L Magnesium Total Bilirubin AST ALT Alkaline Phosphatase Total Protein Albumin Globulin Albumin/Globulin Ratio POC Glucose 147 H 07/31/18 07/31/18 07/31/18 08:13 12:28 16:01 WBC RBC Hgb Hct MCV MCH MCHC RDW RDW Differential Plt Count MPV Neut % (Auto) Absolute Neuts (auto) Absolute Lymphs (auto) Total Counted Neutrophils % (Manual) Band Neutrophils % Lymphocytes % (Manual) Monocytes % (Manual) Metamyelocytes % Promyelocytes % Nucleated RBC % Diff Path Review Platelet Estimate Plt Morphology Comment RBC Morphology Absolute Retic APTT Specimen Type Sample Site pH Bicarbonate Actual POC Total CO2 Base Excess O2 Saturation O2 % ABG pCO2 ABG pO2 Respiration Rate O2 Delivery Device Vent Mode Tidal Volume POC PEEP Blood Gas Notified Whom Blood Gas Notified Time Sodium Potassium Chloride Carbon Dioxide Anion Gap BUN Creatinine Estim Creat Clear Calc Est GFR (MDRD) Af Amer Est GFR (MDRD) Non-Af BUN/Creatinine Ratio Glucose Calcium Magnesium Total Bilirubin AST ALT Alkaline Phosphatase Total Protein Albumin Globulin Albumin/Globulin Ratio POC Glucose 155 H 225 H 268 H 07/31/18 07/31/18 08/01/18 20:02 23:58 04:05 WBC RBC Hgb Hct MCV MCH MCHC RDW RDW Differential Plt Count MPV Neut % (Auto) Absolute Neuts (auto) Absolute Lymphs (auto) Total Counted Neutrophils % (Manual) Band Neutrophils % Lymphocytes % (Manual) Monocytes % (Manual) Metamyelocytes % Promyelocytes % Nucleated RBC % Diff Path Review Platelet Estimate Plt Morphology Comment RBC Morphology Absolute Retic APTT 55.2 H Specimen Type Sample Site pH Bicarbonate Actual POC Total CO2 Base Excess O2 Saturation O2 % ABG pCO2 ABG pO2 Respiration Rate O2 Delivery Device Vent Mode Tidal Volume POC PEEP Blood Gas Notified Whom Blood Gas Notified Time Sodium Potassium Chloride Carbon Dioxide Anion Gap BUN Creatinine Estim Creat Clear Calc Est GFR (MDRD) Af Amer Est GFR (MDRD) Non-Af BUN/Creatinine Ratio Glucose Calcium Magnesium Total Bilirubin AST ALT Alkaline Phosphatase Total Protein Albumin Globulin Albumin/Globulin Ratio POC Glucose 218 H 201 H 08/01/18 08/01/18 04:05 04:15 WBC RBC Hgb Hct MCV MCH MCHC RDW RDW Differential Plt Count MPV Neut % (Auto) Absolute Neuts (auto) Absolute Lymphs (auto) Total Counted Neutrophils % (Manual) Band Neutrophils % Lymphocytes % (Manual) Monocytes % (Manual) Metamyelocytes % Promyelocytes % Nucleated RBC % Diff Path Review Platelet Estimate Plt Morphology Comment RBC Morphology Absolute Retic APTT Specimen Type Sample Site pH Bicarbonate Actual POC Total CO2 Base Excess O2 Saturation O2 % ABG pCO2 ABG pO2 Respiration Rate O2 Delivery Device Vent Mode Tidal Volume POC PEEP Blood Gas Notified Whom Blood Gas Notified Time Sodium 147 H Potassium 3.8 Chloride 103 Carbon Dioxide 33.0 H Anion Gap 11 BUN 68 H Creatinine 1.57 H Estim Creat Clear Calc 45.38 Est GFR (MDRD) Af Amer 57 L Est GFR (MDRD) Non-Af 47 L BUN/Creatinine Ratio 43.3 H Glucose 252 H Calcium 8.1 L Magnesium 2.8 H Total Bilirubin 0.70 AST 33 ALT 51 Alkaline Phosphatase 53 Total Protein 6.2 L Albumin 2.3 L Globulin 3.9 Albumin/Globulin Ratio 0.6 L POC Glucose 239 H Clinical Impression(s) from Imaging Studies KUB X-Ray 07/20/18 18:41 IMPRESSION: No evidence of obstruction or perforation. at 2002 Reported and signed by: Salinas Noriega MD Electronically Signed: Salinas Noriega, at 20:02 EST Tel , Service support , Chest X-Ray 07/20/18 19:30 IMPRESSION: No radiographic evidence of acute cardiopulmonary disease. at 2003 Reported and signed by: Salinas Noriega MD Electronically Signed: Salinas Noriega, at 20:02 EST Tel , Service support , Abdomen X-Ray 07/21/18 11:07 IMPRESSION: Diffuse distention of bowel most likely ileus. Distal colonic obstruction not likely but possible. at 0143 Reported and signed by: Salinas Noriega MD Electronically Signed: Salinas Noriega, at 1:42 EST Tel , Service support , Chest X-Ray 07/22/18 09:37 IMPRESSION: Findings concerning for multifocal pneumonia in the appropriate clinical setting with underlying alveolar edema not completely excluded. Recommend follow-up imaging in 4-6 weeks after appropriate treatment. Electronically Signed: Pacheco Galo DO at 9:56 EST , Service support , Chest CTA 07/22/18 17:51 IMPRESSION: No pulmonary embolus. Multifocal bilateral airspace disease in the lungs similar to the most recent chest radiograph but increased compared to 07/20/18 compatible with multifocal pneumonia versus a noninfectious inflammatory pneumonitis. Small, 4.0 cm, ascending thoracic aortic aneurysm with no hemorrhage or dissection. Individualized dose optimization techniques were used for this CT. at 1927 Reported and signed by: Salinas Noriega MD Electronically Signed: Salinas Noriega, at 19:26 EST Tel , Service support , Chest X-Ray 07/24/18 08:42 IMPRESSION: Progressive bilateral airspace disease. The tip of the endotracheal tube is at 4.1 cm proximal to the sunshine. The tip of the orogastric tube is in the body of the stomach. Electronically Signed: Shar Castillo, at 14:18 EST , Service support , Chest X-Ray 07/25/18 08:20 IMPRESSION: Since prior study, there has been improved aeration of both lungs although residual bilateral airspace disease is seen. Electronically Signed: Shar Castillo, at 9:08 EST , Service support , Chest X-Ray 07/28/18 06:29 IMPRESSION: Since prior study, there has been mild improvement of the aeration of both lungs. Residual bilateral patchy infiltrates are seen. Electronically Signed: Shar Castillo, at 8:22 EST , Service support , KUB X-Ray 07/29/18 05:55 IMPRESSION: Nasogastric tube with its tip in the region of the stomach. Nonspecific gas pattern. Electronically Signed: Emmett Anaya MD at 8:37 EST Tel , Service support , Medical Necessity - Tobacco Use Smoking Status: Former smoker Tobacco Use: Non-smoker Assessment/Plan All Active Problems (Last Reviewed 07/20/18 @ 21:39 by Joaquín Laughlin DO) Acute bronchitis (Acute) Influenza A (Acute) Constipation (Acute) PAUL (acute kidney injury) (Acute) Atrial flutter (Acute) Paroxysmal atrial fibrillation (Acute) Hyperlipidemia (Acute) RECOMMENDATIONS: 1. Continue current supportive measures with lung protective ventilatory strategy. 2. Wean FiO2 to maintain an oxygen saturation at or above 90%. 3. Discontinue fentanyl completely. Continue low-dose Precedex for sedation. 4. Place patient on spontaneous mode of mechanical ventilation today. 5. Continue daily IV steroids. 6. Continue tube feeds as tolerated. Increase rate as tolerated. 7. Continue scheduled aerosol treatments and appropriate ICU prophylaxis. 8. Continue heparin drip and rate/rhythm control strategy per cardiology recommendations. IMPRESSIONS: 1. Acute hypoxemic respiratory failure secondary to influenza A infection and severe community-acquired pneumonia/evolving ARDS The patient has a questionable baseline history of COPD. He was seen in the pulmonary medicine clinic 1 year ago, at which time, pulmonary function studies were ordered. However, the patient never followed up. Although the patient was admitted to the hospital with influenza A and a plain film chest x-ray which was largely unremarkable, follow-up chest imaging subsequently revealed evidence of evolving multifocal pneumonia. The patient has essentially gone on to develop full-blown ARDS. He did require intubation on the morning of July 24. He has been maintained on a lung protective ventilator strategy. The patient's clinical status has improved with time. FiO2 and PEEP have been weaned. The patient will be continued on Precedex for sedation. Continuous fentanyl will be discontinued. Tube feed rate can be increased, as the patient is now having bowel movements. The patient will be trialed on spontaneous mode of mechanical ventilation later this morning. We will continue scheduled Atrovent and steroids as ordered. The patient has already completed his course of Tamiflu and antibiotics. 2. New onset atrial flutter with rapid ventricular rate The patient did require bedside cardioversion on July 26. We will plan to continue medical management per cardiology recommendations. 3. Acute kidney injury Improving. Nephrology is currently following. Avoid nephrotoxic agents. Continue to monitor urine output. No current indication for renal replacement therapy. 4. Known history of pulmonary nodules The patient is actually past due for a repeat CT chest due to his previously identified pulmonary nodules in March 2017. 5. Obstructive sleep apnea The patient is currently noncompliant with the use of nocturnal noninvasive positive pressure ventilation. 6. Rheumatoid arthritis/atrial fibrillation status post ablation/coronary artery disease/tobacco dependency currently in remission Complicates care, management, recovery and prognosis. Continue home medications as indicated. Continue basal and sliding scale insulin regimen. Physical therapy to work with patient, once medically stabilized. TIME: 60 minutes of critical care time, inclusive of procedures, was spent addressing the patient's acute hypoxemic respiratory failure, influenza A infection, severe community-acquired pneumonia, ARDS, acute kidney injury, new onset atrial flutter with rapid ventricular rate, history of pulmonary nodules, obstructive sleep apnea, review of all data and collaboration with the care team. ([id number]) Code Visit 9xxxx: [id number] Critical care first hour
--- NOTE | 2018-08-01 06:46 | RAD_ITS ---
STUDY: X-RAY CHEST REASON FOR EXAM: Male, 63 years old. ET tube insertion TECHNIQUE: Single AP portable view of the chest. COMPARISON: December 28, 2018 FINDINGS: ET tube is noted low lying and only terminating 1.67 cm from the sunshine. Enteric tube is noted below the left hemidiaphragm. Lungs are hypoinflated. Stable patchy airspace disease. Remainder is unchanged. RAD/Chest 1 View (Portable) IMPRESSION: Low-lying ET tube as above. Remainder is unchanged Electronically Signed: Miguel Russell DO at 9:01 EDT Tel , Service support ,
[2018-08-01] MEDS: Etomidate 20 MG/10 ML Vial IV (06:50)
--- NOTE | 2018-08-01 06:54 | NURSING ---
Addendum entered by Sindy Esqueda 08/01/18 07:17: Et tube cuff blown, not ventilating well. New tube needed Original Note: 0642 etomidate 20mg iv given by Dr. Ponce 0644 Succinylcholine 100 mg iv given by Dr. Ponce pt reintubated at [address] Ponce
[2018-08-01] MEDS: Succinylcholine Chloride 200 MG/10 ML Vial 100 MG IV (06:56)
--- NOTE | 2018-08-01 07:34 | PCM.PROGNOTE ---
Patient Problems: Active and Suspected Problems (Last Reviewed 07/20/18 @ 21:39 by Joaquín Laughlin DO) Acute bronchitis (Acute) Influenza A (Acute) Constipation (Acute) PAUL (acute kidney injury) (Acute) Atrial flutter (Acute) Subjective: Day #9 ventilator Completed Zosyn 07/28/18 Completed Tamiflu All events the past 24 hours of been reviewed. Tmax over the past 24 hours was 99.4 Vital signs are stable. Pulse ox ranges from 90-95% on a 40% FiO2. Fluid balance since admission is +7617. PTT is 55.2 today. Sodium is 147 and the serum bicarb is 33, down from 36 on 07/31/2018. Furosemide is on hold. Kidney function continues to improve and the creatinine today is 1.57. Blood sugars are predominantly in the low 200s area Objective: Remains intubated and sedated. Mucous membranes are dry with no mucosal lesions. The neck is supple with no nuchal rigidity and no cervical nodes. Lungs-diminished but clear to auscultation Heart-regular rate and rhythm, normal S1, normal S2, no gallop, no rub Telemetry-normal sinus rhythm/no atrial fibrillation for the past 24 hours Abdomen-obese, soft, nondistended, no guarding with palpation Extremities-no cyanosis, positive edema Neuro-no focal neurologic deficits - Physical Exam Vital Signs Temp Pulse Resp BP Pulse Ox 98.4 F 65 25 H 127/68 H 90 08/01/18 05:00 08/01/18 06:00 08/01/18 06:00 08/01/18 06:00 08/01/18 06:00 Oxygen Flow Rate (L/min) 15 Oxygen Delivery Method Mechanical Ventilator Weight: 246 lb 14.684 oz Body Mass Index (BMI) 38.6 Finger Stick Blood Glucose 200 Intake and Output for Last 24 Hours 07/30/18 07/31/18 08/01/18 23:59 23:59 23:59 Intake Total 2033.7 / 2033.7 1075.0 / 1075.0 Output Total 1925 / 1925 1100 / 1100 Balance 108.7 / 108.7 -25.0 / -25.0 Laboratory Tests Past 24 Hrs 08/01/18 08/01/18 04:05 04:05 APTT 55.2 H Sodium 147 H Potassium 3.8 Chloride 103 Carbon Dioxide 33.0 H Anion Gap 11 BUN 68 H Creatinine 1.57 H Estim Creat Clear Calc 45.38 Est GFR (MDRD) Af Amer 57 L Est GFR (MDRD) Non-Af 47 L BUN/Creatinine Ratio 43.3 H Glucose 252 H Calcium 8.1 L Magnesium 2.8 H Total Bilirubin 0.70 AST 33 ALT 51 Alkaline Phosphatase 53 Total Protein 6.2 L Albumin 2.3 L Globulin 3.9 Albumin/Globulin Ratio 0.6 L POC Glucose 08/01/18 07/31/18 07/31/18 04:15 23:58 20:02 POC Glucose 239 H 201 H 218 H 07/31/18 07/31/18 07/31/18 16:01 12:28 08:13 POC Glucose 268 H 225 H 155 H Medical Necessity - Tobacco Use Smoking Status: Former smoker Tobacco Use: Non-smoker Assessment/Plan All Active Problems (Last Reviewed 07/20/18 @ 21:39 by Joaquín Laughlin DO) Acute bronchitis (Acute) Influenza A (Acute) Constipation (Acute) PAUL (acute kidney injury) (Acute) Atrial flutter (Acute) Paroxysmal atrial fibrillation (Acute) Hyperlipidemia (Acute) Impressions 1. Severe sepsis secondary to influenza A with community-acquired pneumonia and acute respiratory failure with hypoxemia and ARDS 2. Acute respiratory failure with hypoxemia 3. Influenza A 4. Severe community-acquired pneumonia - no bacteria identified 5. Known history of pulmonary nodules 6. Obstructive sleep apnea-noncompliant with nocturnal noninvasive positive pressure ventilation at home but, has been wearing in the hospital 7. Rheumatoid arthritis-on methotrexate which has been restarted 8. Atrial fibrillation-status post ablation but has had PAF in the hospital 9. Coronary artery disease with history of PCI 10. History of tobacco dependence in remission 11. Acute renal failure-improving. Dr. Weldon is following 12. Diabetes mellitus type 2, uncontrolled-hemoglobin A1c 9.3 13. Metabolic alkalosis-suspect secondary to diuretics/volume contraction 14. Severe malnutrition 15. ARDS 16. Urine retention - started on Proscar and Flomax - DC petersen in 1 week and do a voiding trial Continue Zosyn Probable spontaneous breathing trial in the a.m. Discussed on rounds with Dr. Kris collier in the a.m. Continue tube feeding Continue heparin infusion for stroke prophylaxis in a patient with paroxysmal atrial fibrillation Continue amiodarone infusion Patient had his ET tube changed out today because the balloon was ruptured. Code Visit Inpatient E&M: [id number] [facility] L[facility]
--- NOTE | 2018-08-01 09:31 | CASEMGMT ---
RN CM Note: Participated in Interdisciplinary rounds. Pt remains on ventilatory support. Weaning sedation. Cpap trial today. Discussed tentative dc planning with pt's . Anticipating pt may need SNF on dc, will continue to follow PT/OT notes, especially when pt is extubated. is agreeable to [facility] on dc if SNF is needed, and [facility] if pt is able to return home with home health. Rica DAWKINS RN ACM
[2018-08-01 10:25] LABS: Bedside Glucose 223 mg/dL (70-110)
[2018-08-01] MEDS: Vital AF 1.2 Cal Liquid 1,000 ML 10 ML GT (10:31)
[2018-08-01] MEDS: Famotidine 20 MG Tablet GT ×2 (10:33→21:47)
[2018-08-01] MEDS: Aspirin 81 MG TAB.CHEW GT (10:33)
[2018-08-01] MEDS: Amiodarone 200 MG Tablet GT (10:33)
[2018-08-01] MEDS: Folic Acid 1 MG Tablet GT (10:33)
[2018-08-01] MEDS: Senna/Docusate Sodium 1 Tablet 2 TABLET PO ×2 (10:33→21:46)
[2018-08-01] MEDS: Polyethylene Glycol 3350 17 GM PACKET GT ×2 (10:33→21:46)
[2018-08-01] MEDS: Chlorhexidine 15 ML PO ×2 (10:34→21:54)
[2018-08-01] MEDS: HEPARIN/D5w 25,000 UNITS 25,000 UNITS/250 ML IV.SOLN. 16 UNITS IV (13:03)
[2018-08-01 13:25] LABS: Pathologist Review Reviewed
--- NOTE | 2018-08-01 13:32 | PN.RENAL_ITS ---
Patient Problems: Active and Suspected Problems (Last Reviewed 07/20/18 @ 21:39 by Joaquín Laughlin DO) Acute bronchitis (Acute) Influenza A (Acute) Constipation (Acute) CAMELIA (acute kidney injury) (Acute) Atrial flutter (Acute) Subjective: Patient still intubated and sedated. FiO2 50%. Cannot do review of system - Physical Exam General: - - Sedated and intubated HEENT: Atraumatic Oral: Moist Mucosa Neck: Supple, No JVD, - - ET tube in place Lungs: Clear to auscultation, - - On vent support with FiO2 50% Abdomen: Bowel Sounds Present, Soft, Non Tender Extremities: No clubbing, No cyanosis, No edema Skin: No rashes Musculoskeletal: No Muscle Wasting Lymphatic: No Cervical, Supraclavicular, or Inguinal Adenopathy Psych/Mental Status: - - Sedated Vital Signs Temp Pulse Resp BP Pulse Ox 99.0 F 69 24 H 140/69 H 93 08/01/18 12:00 08/01/18 13:00 08/01/18 13:00 08/01/18 13:00 08/01/18 13:00 Oxygen Flow Rate (L/min) 15 Oxygen Delivery Method Mechanical Ventilator Weight: 112 kg Body Mass Index (BMI) 38.6 Finger Stick Blood Glucose 200 Intake and Output for Last 24 Hours 07/30/18 07/31/18 08/01/18 23:59 23:59 23:59 Intake Total 2033.7 / 2033.7 1545.0 / 1545.0 Output Total 1925 / 1925 1775 / 1775 Balance 108.7 / 108.7 -230.0 / -230.0 Laboratory Tests Past 24 Hrs 07/31/18 08/01/18 08/01/18 04:20 04:05 04:05 Diff Path Review Reviewed APTT 55.2 H Sodium 147 H Potassium 3.8 Chloride 103 Carbon Dioxide 33.0 H Anion Gap 11 BUN 68 H Creatinine 1.57 H Estim Creat Clear Calc 45.38 Est GFR (MDRD) Af Amer 57 L Est GFR (MDRD) Non-Af 47 L BUN/Creatinine Ratio 43.3 H Glucose 252 H Calcium 8.1 L Magnesium 2.8 H Total Bilirubin 0.70 AST 33 ALT 51 Alkaline Phosphatase 53 Total Protein 6.2 L Albumin 2.3 L Globulin 3.9 Albumin/Globulin Ratio 0.6 L POC Glucose 08/01/18 08/01/18 07/31/18 09:08 04:15 23:58 POC Glucose 223 H 239 H 201 H 07/31/18 07/31/18 20:02 16:01 POC Glucose 218 H 268 H Medical Necessity - Tobacco Use Smoking Status: Former smoker Tobacco Use: Non-smoker Assessment/Plan All Active Problems (Last Reviewed 07/20/18 @ 21:39 by Joaquín Laughlin DO) Acute bronchitis (Acute) Influenza A (Acute) Constipation (Acute) CAMELIA (acute kidney injury) (Acute) Atrial flutter (Acute) Paroxysmal atrial fibrillation (Acute) Hyperlipidemia (Acute) 1. Acute kidney onjury. Normal baseline renal function. Camelia is 2/2 ischemic ATN.Cr peaked at 2.1 on 07/25 Renal function continues to improve. Pt did not need [employer]. Creatinine is down to 1.57 mg/dL. Urine is decreasing patient is nonoliguric. No need for dialysis. Avoid nephrotoxins (NSAID or IV contrast).Keep MAP>65 Will continue to monitor for kidney function recovery 2- Hypernatremia :Na is 147. Will increase free water flushes to 150 cc every 4 hours 3- Acute hypoxic respiratory failure due to Influenza, CAP/ARDS. vent dependent. Vent management and Abx as per pulm/CCM. 4- Aflutter. now sinus. Cardiology service is following Renal team will continue to follow. Please call with any question or concern Isaura Weldon MD [phone]
[2018-08-01 13:46] LABS: Bedside Glucose 221 mg/dL (70-110)
[2018-08-01 19:05] LABS: Bedside Glucose 214 mg/dL (70-110)
[2018-08-01] MEDS: Pravastatin 80 MG Tablet PO (21:47)
[2018-08-02] VITALS (37 sets, daily range): BP systolic 116–169; BP diastolic 58–96; PULSE 59–125; RESP 16–31; TEMP 37.2–37.5; O2SAT 91–96
[2018-08-02] MEDS: Insulin Lispro 100 UNIT/ML INSULN.PEN SC ×4 (00:45→18:10)
[2018-08-02 00:56] LABS: Bedside Glucose 203 mg/dL (70-110)
[2018-08-02] MEDS: Ipratropium 0.5 MG/2.5 ML SOLUTION INHALATION (03:55)
[2018-08-02 05:05] LABS: Partial Thromboplast Time 69.2 Seconds (24.1-36.2)
[2018-08-02 05:25] LABS: Bedside Glucose 236 mg/dL (70-110)
--- NOTE | 2018-08-02 05:55 | CPS ---
pt unable to do NIF at this time, pt on cpap trial of 02/24
--- NOTE | 2018-08-02 06:35 | PN_ITS ---
Subjective: The patient was seen and examined at the bedside this morning. Events from the last 24 hours have been reviewed. No significant overnight events were noted by the nursing staff. The patient's Precedex has been decreased to 0.3 this morning. The patient was maintained on CPAP throughout the day yesterday. He was placed back on assist control overnight. Early this morning the patient was placed back on spontaneous mode of mechanical ventilation with an FiO2 requirement of 40%. The patient is now documented to be overall net +7.3 L for the admission. Objective: The patient's most recent lab work, culture data and imaging studies have all been personally reviewed. Chest imaging studies have all revealed significant multifocal bilateral infiltrates. Surface echocardiogram revealed mild concentric LVH with an ejection fraction of 55% and stage II diastolic dysfunction. Pulmonary artery systolic pressure was estimated to be 26 mmHg. The patient's rapid influenza screen was positive for influenza A. The remainder of his infectious workup, including sputum cultures have been unrevealing to date. General: Alert, - - Remains intubated on spontaneous mode of mechanical ventilation. HEENT: Atraumatic, PERRLA, Normocephalic Oral: No Gingival or Mucosal Lesions/ Ulcerations, - - Endotracheal and OG tubes remain in place. Neck: Supple, No Nodes, Trachea Midline Lungs: No rhonchi, No wheeze, No rales, Diminished, Tachypneic Cardiovascular: Regular rate, Regular Rhythm, Normal S1, Normal S2, No murmurs, - - Remains in NSR on telemetry Abdomen: Bowel Sounds Present, Soft, Non Tender, Obese Extremities: No clubbing, No cyanosis, No edema Skin: - - No significant change from previous. Musculoskeletal: No Tenderness to Palpation of Joints or Extremities, No Muscle Wasting Lymphatic: No Cervical, Supraclavicular, or Inguinal Adenopathy Neurological: Neuro grossly intact, - - The patient is currently alert and able to follow simple commands. Vital Signs Temp Pulse Resp BP Pulse Ox 37.3 C H 68 25 H 127/62 H 91 08/02/18 05:00 08/02/18 06:00 08/02/18 06:00 08/02/18 06:00 08/02/18 06:00 Oxygen Flow Rate (L/min) 15 Oxygen Delivery Method Mechanical Ventilator Weight: 246 lb 7.629 oz Body Mass Index (BMI) 38.6 Finger Stick Blood Glucose 200 Intake and Output for Last 24 Hours 07/31/18 08/01/18 08/02/18 23:59 23:59 23:59 Intake Total 2033.7 / 2033.7 2462.6 / 2462.6 612.2 / 612.2 Output Total 1925 / 1925 2975 / 2975 400 / 400 Balance 108.7 / 108.7 -512.4 / -512.4 212.2 / 212.2 Labs (Last 48 Hours) 07/31/18 07/31/18 07/31/18 04:20 06:56 08:13 Absolute Neuts (auto) 10.9 H Absolute Lymphs (auto) 3.23 Total Counted 100 Neutrophils % (Manual) 70 Band Neutrophils % 4 Lymphocytes % (Manual) 22 Monocytes % (Manual) 2 Metamyelocytes % 1 Promyelocytes % 1 H Nucleated RBC % 0.2 Diff Path Review Reviewed Platelet Estimate ADEQUATE Plt Morphology Comment LARGE RBC Morphology NORM C+C Absolute Retic 0.02 APTT Specimen Type ART Sample Site R Radial pH 7.51 H Bicarbonate Actual 39.4 H POC Total CO2 41 Base Excess 16 H O2 Saturation 93 L O2 % 45 ABG pCO2 49.3 H ABG pO2 60 L Respiration Rate 16 O2 Delivery Device Vent Vent Mode A-C Tidal Volume 500 POC PEEP 5 Blood Gas Notified Whom ICU MD Blood Gas Notified Time 655 Sodium Potassium Chloride Carbon Dioxide Anion Gap BUN Creatinine Estim Creat Clear Calc Est GFR (MDRD) Af Amer Est GFR (MDRD) Non-Af BUN/Creatinine Ratio Glucose Calcium Magnesium Total Bilirubin AST ALT Alkaline Phosphatase Total Protein Albumin Globulin Albumin/Globulin Ratio POC Glucose 155 H 07/31/18 07/31/18 07/31/18 12:28 16:01 20:02 Absolute Neuts (auto) Absolute Lymphs (auto) Total Counted Neutrophils % (Manual) Band Neutrophils % Lymphocytes % (Manual) Monocytes % (Manual) Metamyelocytes % Promyelocytes % Nucleated RBC % Diff Path Review Platelet Estimate Plt Morphology Comment RBC Morphology Absolute Retic APTT Specimen Type Sample Site pH Bicarbonate Actual POC Total CO2 Base Excess O2 Saturation O2 % ABG pCO2 ABG pO2 Respiration Rate O2 Delivery Device Vent Mode Tidal Volume POC PEEP Blood Gas Notified Whom Blood Gas Notified Time Sodium Potassium Chloride Carbon Dioxide Anion Gap BUN Creatinine Estim Creat Clear Calc Est GFR (MDRD) Af Amer Est GFR (MDRD) Non-Af BUN/Creatinine Ratio Glucose Calcium Magnesium Total Bilirubin AST ALT Alkaline Phosphatase Total Protein Albumin Globulin Albumin/Globulin Ratio POC Glucose 225 H 268 H 218 H 07/31/18 08/01/18 08/01/18 23:58 04:05 04:05 Absolute Neuts (auto) Absolute Lymphs (auto) Total Counted Neutrophils % (Manual) Band Neutrophils % Lymphocytes % (Manual) Monocytes % (Manual) Metamyelocytes % Promyelocytes % Nucleated RBC % Diff Path Review Platelet Estimate Plt Morphology Comment RBC Morphology Absolute Retic APTT 55.2 H Specimen Type Sample Site pH Bicarbonate Actual POC Total CO2 Base Excess O2 Saturation O2 % ABG pCO2 ABG pO2 Respiration Rate O2 Delivery Device Vent Mode Tidal Volume POC PEEP Blood Gas Notified Whom Blood Gas Notified Time Sodium 147 H Potassium 3.8 Chloride 103 Carbon Dioxide 33.0 H Anion Gap 11 BUN 68 H Creatinine 1.57 H Estim Creat Clear Calc 45.38 Est GFR (MDRD) Af Amer 57 L Est GFR (MDRD) Non-Af 47 L BUN/Creatinine Ratio 43.3 H Glucose 252 H Calcium 8.1 L Magnesium 2.8 H Total Bilirubin 0.70 AST 33 ALT 51 Alkaline Phosphatase 53 Total Protein 6.2 L Albumin 2.3 L Globulin 3.9 Albumin/Globulin Ratio 0.6 L POC Glucose 201 H 08/01/18 08/01/18 08/01/18 04:15 09:08 13:15 Absolute Neuts (auto) Absolute Lymphs (auto) Total Counted Neutrophils % (Manual) Band Neutrophils % Lymphocytes % (Manual) Monocytes % (Manual) Metamyelocytes % Promyelocytes % Nucleated RBC % Diff Path Review Platelet Estimate Plt Morphology Comment RBC Morphology Absolute Retic APTT Specimen Type Sample Site pH Bicarbonate Actual POC Total CO2 Base Excess O2 Saturation O2 % ABG pCO2 ABG pO2 Respiration Rate O2 Delivery Device Vent Mode Tidal Volume POC PEEP Blood Gas Notified Whom Blood Gas Notified Time Sodium Potassium Chloride Carbon Dioxide Anion Gap BUN Creatinine Estim Creat Clear Calc Est GFR (MDRD) Af Amer Est GFR (MDRD) Non-Af BUN/Creatinine Ratio Glucose Calcium Magnesium Total Bilirubin AST ALT Alkaline Phosphatase Total Protein Albumin Globulin Albumin/Globulin Ratio POC Glucose 239 H 223 H 221 H 08/01/18 08/02/18 08/02/18 18:44 00:44 04:50 Absolute Neuts (auto) Absolute Lymphs (auto) Total Counted Neutrophils % (Manual) Band Neutrophils % Lymphocytes % (Manual) Monocytes % (Manual) Metamyelocytes % Promyelocytes % Nucleated RBC % Diff Path Review Platelet Estimate Plt Morphology Comment RBC Morphology Absolute Retic APTT 69.2 H Specimen Type Sample Site pH Bicarbonate Actual POC Total CO2 Base Excess O2 Saturation O2 % ABG pCO2 ABG pO2 Respiration Rate O2 Delivery Device Vent Mode Tidal Volume POC PEEP Blood Gas Notified Whom Blood Gas Notified Time Sodium Potassium Chloride Carbon Dioxide Anion Gap BUN Creatinine Estim Creat Clear Calc Est GFR (MDRD) Af Amer Est GFR (MDRD) Non-Af BUN/Creatinine Ratio Glucose Calcium Magnesium Total Bilirubin AST ALT Alkaline Phosphatase Total Protein Albumin Globulin Albumin/Globulin Ratio POC Glucose 214 H 203 H 08/02/18 05:12 Absolute Neuts (auto) Absolute Lymphs (auto) Total Counted Neutrophils % (Manual) Band Neutrophils % Lymphocytes % (Manual) Monocytes % (Manual) Metamyelocytes % Promyelocytes % Nucleated RBC % Diff Path Review Platelet Estimate Plt Morphology Comment RBC Morphology Absolute Retic APTT Specimen Type Sample Site pH Bicarbonate Actual POC Total CO2 Base Excess O2 Saturation O2 % ABG pCO2 ABG pO2 Respiration Rate O2 Delivery Device Vent Mode Tidal Volume POC PEEP Blood Gas Notified Whom Blood Gas Notified Time Sodium Potassium Chloride Carbon Dioxide Anion Gap BUN Creatinine Estim Creat Clear Calc Est GFR (MDRD) Af Amer Est GFR (MDRD) Non-Af BUN/Creatinine Ratio Glucose Calcium Magnesium Total Bilirubin AST ALT Alkaline Phosphatase Total Protein Albumin Globulin Albumin/Globulin Ratio POC Glucose 236 H Clinical Impression(s) from Imaging Studies KUB X-Ray 07/20/18 18:41 IMPRESSION: No evidence of obstruction or perforation. at 2002 Reported and signed by: Salinas Noriega MD Electronically Signed: Salinas Noriega, at 20:02 EST Tel , Service support , Chest X-Ray 07/20/18 19:30 IMPRESSION: No radiographic evidence of acute cardiopulmonary disease. at 2002 Reported and signed by: Salinas Noriega MD Electronically Signed: Salinas Noriega, at 20:02 EST Tel , Service support , Abdomen X-Ray 07/21/18 11:07 IMPRESSION: Diffuse distention of bowel most likely ileus. Distal colonic obstruction not likely but possible. at 0143 Reported and signed by: Salinas Noriega MD Electronically Signed: Salinas Noriega, at 1:42 EST Tel , Service support , Chest X-Ray 07/22/18 09:37 IMPRESSION: Findings concerning for multifocal pneumonia in the appropriate clinical setting with underlying alveolar edema not completely excluded. Recommend follow-up imaging in 4-6 weeks after appropriate treatment. Electronically Signed: Pacheco Galo DO at 9:56 EST , Service support , Chest CTA 07/22/18 17:51 IMPRESSION: No pulmonary embolus. Multifocal bilateral airspace disease in the lungs similar to the most recent chest radiograph but increased compared to 07/20/18 compatible with multifocal pneumonia versus a noninfectious inflammatory pneumonitis. Small, 4.0 cm, ascending thoracic aortic aneurysm with no hemorrhage or dissection. Individualized dose optimization techniques were used for this CT. at 1927 Reported and signed by: Salinas Noriega MD Electronically Signed: Salinas Noriega, at 19:26 EST Tel , Service support , Chest X-Ray 07/24/18 08:42 IMPRESSION: Progressive bilateral airspace disease. The tip of the endotracheal tube is at 4.1 cm proximal to the sunshine. The tip of the orogastric tube is in the body of the stomach. Electronically Signed: Shar Castillo, at 14:18 EST , Service support , Chest X-Ray 07/25/18 08:20 IMPRESSION: Since prior study, there has been improved aeration of both lungs although residual bilateral airspace disease is seen. Electronically Signed: Shar Jonathan, at 9:08 EST , Service support , Chest X-Ray 07/28/18 06:29 IMPRESSION: Since prior study, there has been mild improvement of the aeration of both lungs. Residual bilateral patchy infiltrates are seen. Electronically Signed: Shar Castillo, at 8:22 EST , Service support , KUB X-Ray 07/29/18 05:55 IMPRESSION: Nasogastric tube with its tip in the region of the stomach. Nonspecific gas pattern. Electronically Signed: Emmett Anaya MD at 8:37 EST Tel , Service support , Chest X-Ray 08/01/18 06:46 IMPRESSION: Low-lying ET tube as above. Remainder is unchanged Electronically Signed: Miguel Russell DO at 9:01 EDT Tel , Service support , Medical Necessity - Tobacco Use Smoking Status: Former smoker Tobacco Use: Non-smoker Assessment/Plan All Active Problems (Last Reviewed 07/20/18 @ 21:39 by Joaquín Laughlin DO) Acute bronchitis (Acute) Influenza A (Acute) Constipation (Acute) PAUL (acute kidney injury) (Acute) Atrial flutter (Acute) Paroxysmal atrial fibrillation (Acute) Hyperlipidemia (Acute) RECOMMENDATIONS: 1. Continue patient on CPAP this morning. Will reassess appropriateness for potential extubation in the next several hours. 2. Continue low-dose Precedex for sedation. 3. Continue daily IV steroids. 4. Continue tube feeds as tolerated. 5. Continue scheduled aerosol treatments and appropriate ICU prophylaxis. 6. Continue heparin drip and rate/rhythm control strategy per cardiology recommendations. IMPRESSIONS: 1. Acute hypoxemic respiratory failure secondary to influenza A infection and severe community-acquired pneumonia/evolving ARDS The patient has a questionable baseline history of COPD. He was seen in the pulmonary medicine clinic 1 year ago, at which time, pulmonary function studies were ordered. However, the patient never followed up. Although the patient was admitted to the hospital with influenza A and a plain film chest x-ray which was largely unremarkable, follow-up chest imaging subsequently revealed evidence of evolving multifocal pneumonia. The patient has essentially gone on to develop full-blown ARDS. He did require intubation on the morning of July 24. He has been maintained on a lung protective ventilator strategy. The patient's clinical status has improved with time. FiO2 and PEEP have been weaned. The patient will be continued on Precedex for sedation. Continuous fentanyl will be discontinued. Tube feeds will be continued. We will continue scheduled Atrovent and steroids as ordered. The patient has already completed his course of Tamiflu and antibiotics. 2. New onset atrial flutter with rapid ventricular rate The patient did require bedside cardioversion on July 26. We will plan to continue medical management per cardiology recommendations. 3. Acute kidney injury Improving. Nephrology is currently following. Avoid nephrotoxic agents. Continue to monitor urine output. No current indication for renal replacement therapy. 4. Known history of pulmonary nodules The patient is actually past due for a repeat CT chest due to his previously identified pulmonary nodules in March 2017. 5. Obstructive sleep apnea The patient is currently noncompliant with the use of nocturnal noninvasive positive pressure ventilation. 6. Rheumatoid arthritis/atrial fibrillation status post ablation/coronary artery disease/tobacco dependency currently in remission Complicates care, management, recovery and prognosis. Continue home medications as indicated. Continue basal and sliding scale insulin regimen. Physical therapy to work with patient, once medically stabilized. TIME: 40 minutes of critical care time, inclusive of procedures, was spent addressing the patient's acute hypoxemic respiratory failure, influenza A infection, severe community-acquired pneumonia, ARDS, acute kidney injury, new onset atrial flutter with rapid ventricular rate, history of pulmonary nodules, obstructive sleep apnea, review of all data and collaboration with the care team. ([id number]) Code Visit 9xxxx: [id number] Critical care first hour
[2018-08-02 06:49] LABS: Anion Gap 9 (5-15); BUN 54 mg/dL (7-18); BUN/Creat Ratio 37.5 RATIO (10-20); Calcium,Total 8.3 mg/dL (8.5-10.1); Chloride 107 mmol/L (98-107); Creatinine, Serum 1.44 mg/dL (0.70-1.30); EST Glomerular Filtration Rate 52 mL/min (>60); Est Glom Filt Rate - Afr Amer 63 mL/min (>60); Estimated Creatinine Clearance 49.48 ml/min; Glucose 230 mg/dL (74-106); Potassium 3.5 mmol/L (3.5-5.1); Sodium Level 147 mmol/L (136-145)
[2018-08-02] MEDS: HEPARIN/D5w 25,000 UNITS 25,000 UNITS/250 ML IV.SOLN. 16 UNITS IV (09:53)
--- NOTE | 2018-08-02 09:54 | PCM.PROGNOTE ---
Patient Problems: Active and Suspected Problems (Last Reviewed 07/20/18 @ 21:39 by Joaquín Laughlin DO) Acute bronchitis (Acute) Influenza A (Acute) Constipation (Acute) PAUL (acute kidney injury) (Acute) Atrial flutter (Acute) Subjective: All events of the past 24 hours have been reviewed. He has been on CPAP most of the morning and is doing well. He still appears to be somewhat obtunded but is interacting a little Afebrile. Vital signs are stable. He is 91% saturated currently on a 40% FiO2. Fluid balance on 08/01/2018 was -512.. Since admission he is +7,342. - Physical Exam General: No apparent distress, Well developed, Well nourished, - - awake but, not exactly alert HEENT: Atraumatic, PERRLA, EOMI Neck: No JVD, Trachea Midline Lungs: Clear to auscultation, No rhonchi, No wheeze, No rales, Diminished Cardiovascular: Regular rate, Regular Rhythm, Normal S1, Normal S2, No Gallop, - - Telemetry: Normal sinus rhythm with no significant ectopy Abdomen: Soft, Non-Distended, Hypoactive Bowel Sounds, - - Tympanic, no guarding with palpation Extremities: No clubbing, No cyanosis, Edema - mild Neurological: Cranial nerves II-XII grossly intact, Neuro grossly intact, - - No focal neurologic deficits Vital Signs Temp Pulse Resp BP Pulse Ox 99.2 F H 60 29 H 127/62 H 91 08/02/18 05:00 08/02/18 06:59 08/02/18 06:50 08/02/18 06:00 08/02/18 06:00 Oxygen Flow Rate (L/min) 15 Oxygen Delivery Method Mechanical Ventilator Weight: 246 lb 7.629 oz Body Mass Index (BMI) 38.6 Finger Stick Blood Glucose 200 Intake and Output for Last 24 Hours 07/31/18 08/01/18 08/02/18 23:59 23:59 23:59 Intake Total 2033.7 / 2033.7 2462.6 / 2462.6 612.2 / 612.2 Output Total 1925 / 1925 2975 / 2975 400 / 400 Balance 108.7 / 108.7 -512.4 / -512.4 212.2 / 212.2 Laboratory Tests Past 24 Hrs 07/31/18 08/02/18 08/02/18 04:20 04:50 04:50 Diff Path Review Reviewed APTT 69.2 H Sodium 147 H Potassium 3.5 Chloride 107 Carbon Dioxide 31.0 Anion Gap 9 BUN 54 H Creatinine 1.44 H Estim Creat Clear Calc 49.48 Est GFR (MDRD) Af Amer 63 Est GFR (MDRD) Non-Af 52 L BUN/Creatinine Ratio 37.5 H Glucose 230 H Calcium 8.3 L POC Glucose 08/02/18 08/02/18 08/01/18 05:12 00:44 18:44 POC Glucose 236 H 203 H 214 H 08/01/18 08/01/18 13:15 09:08 POC Glucose 221 H 223 H Medical Necessity - Tobacco Use Smoking Status: Former smoker Tobacco Use: Non-smoker Assessment/Plan All Active Problems (Last Reviewed 07/20/18 @ 21:39 by Joaquín Laughlin DO) Acute bronchitis (Acute) Influenza A (Acute) Constipation (Acute) PAUL (acute kidney injury) (Acute) Atrial flutter (Acute) Paroxysmal atrial fibrillation (Acute) Hyperlipidemia (Acute) Impressions 1. Severe sepsis secondary to influenza A with community-acquired pneumonia and acute respiratory failure with hypoxemia 2. Acute respiratory failure with hypoxemia 3. Influenza A 4. Severe community-acquired pneumonia 5. Known history of pulmonary nodules 6. Obstructive sleep apnea-noncompliant with nocturnal noninvasive positive pressure ventilation 7. Rheumatoid arthritis-on methotrexate 8. Atrial fibrillation-status post ablation 9. Coronary artery disease with history of PCI 10. History of tobacco dependence in remission 11. Acute renal failure-improving 12. Diabetes mellitus type 2, uncontrolled-hemoglobin A1c 9.3 13. Metabolic alkalosis-suspect secondary to diuretics/volume contraction 14. Severe malnutrition Possible extubation today Currently weaning sedation with Precedex Will need SNF at [place] to get stronger Met with his and answered her questions Hold the TF's now and place the NG to suction in preparation for extubation Code Visit Inpatient E&M: 44325 Subs Hosp L3
--- NOTE | 2018-08-02 10:45 | CASEMGMT ---
SW participated in ICU rounds this morning, pt's present. Pt remains on the ventilator this morning. SW confirmed w/ she would like a referral sent to [facility]. SW explained will send referral when appropriate. SW will continue to follow. NIKOLE Matias, MACHINE HEDDLE CLEANER
[2018-08-02] MEDS: Aspirin 81 MG TAB.CHEW GT (13:17)
[2018-08-02] MEDS: Famotidine 20 MG Tablet GT ×2 (13:17→22:14)
[2018-08-02] MEDS: Polyethylene Glycol 3350 17 GM PACKET GT ×2 (13:17→22:14)
[2018-08-02] MEDS: Amiodarone 200 MG Tablet GT (13:17)
[2018-08-02] MEDS: Folic Acid 1 MG Tablet GT (13:17)
[2018-08-02] MEDS: Senna/Docusate Sodium 1 Tablet 2 TABLET PO ×2 (13:18→22:15)
[2018-08-02] MEDS: 0.9% NaCl Peripheral Flush Adult/Peds IV ×2 (13:18→18:10)
[2018-08-02] MEDS: Chlorhexidine 15 ML PO ×2 (13:18→22:15)
[2018-08-02 13:46] LABS: Bedside Glucose 201 mg/dL (70-110)
--- NOTE | 2018-08-02 13:54 | PN.RENAL_ITS ---
Patient Problems: Active and Suspected Problems (Last Reviewed 07/20/18 @ 21:39 by Joaquín Laughlin DO) Acute bronchitis (Acute) Influenza A (Acute) Constipation (Acute) CAMELIA (acute kidney injury) (Acute) Atrial flutter (Acute) Subjective: Patient still intubated. He is awake alert following commands. FiO2 down to 35%. No nausea no vomiting - Physical Exam General: Alert HEENT: Atraumatic, PERRLA Oral: - - ET tube in place Neck: Supple, No JVD Lungs: Clear to auscultation, Normal air movement, No rhonchi, No wheeze Cardiovascular: Regular rate, Regular Rhythm, Normal S1, Normal S2 Abdomen: Bowel Sounds Present, Soft, Non Tender, Non-Distended Extremities: No clubbing, No cyanosis, No edema Skin: No rashes Lymphatic: No Cervical, Supraclavicular, or Inguinal Adenopathy Psych/Mental Status: Appropriate Vital Signs Temp Pulse Resp BP Pulse Ox 99.2 F H 95 18 127/62 H 96 08/02/18 05:00 08/02/18 13:37 08/02/18 13:37 08/02/18 06:00 08/02/18 13:37 Oxygen Flow Rate (L/min) 15 Oxygen Delivery Method Mechanical Ventilator Weight: 111.8 kg Body Mass Index (BMI) 38.6 Finger Stick Blood Glucose 200 Intake and Output for Last 24 Hours 07/31/18 08/01/18 08/02/18 23:59 23:59 23:59 Intake Total 2033.7 / 2033.7 2462.6 / 2462.6 612.2 / 612.2 Output Total 1925 / 1925 2975 / 2975 400 / 400 Balance 108.7 / 108.7 -512.4 / -512.4 212.2 / 212.2 Laboratory Tests Past 24 Hrs 08/02/18 08/02/18 04:50 04:50 APTT 69.2 H Sodium 147 H Potassium 3.5 Chloride 107 Carbon Dioxide 31.0 Anion Gap 9 BUN 54 H Creatinine 1.44 H Estim Creat Clear Calc 49.48 Est GFR (MDRD) Af Amer 63 Est GFR (MDRD) Non-Af 52 L BUN/Creatinine Ratio 37.5 H Glucose 230 H Calcium 8.3 L POC Glucose 08/02/18 08/02/1819 13:23 05:12 00:44 POC Glucose 201 H 236 H 203 H 08/01/18 18:44 POC Glucose 214 H Medical Necessity - Tobacco Use Smoking Status: Former smoker Tobacco Use: Non-smoker Assessment/Plan All Active Problems (Last Reviewed 07/20/18 @ 21:39 by Joaquín Laughlin DO) Acute bronchitis (Acute) Influenza A (Acute) Constipation (Acute) CAMELIA (acute kidney injury) (Acute) Atrial flutter (Acute) Paroxysmal atrial fibrillation (Acute) Hyperlipidemia (Acute) 1. Acute kidney onjury. Normal baseline renal function. Camelia is 2/2 ischemic ATN.Cr peaked at 2.1 on 07/25 Renal function continues to improve. Pt did not need [employer]OR [employer]. Creatinine is down to 1.44 mg/dL. Output is adequate No need for dialysis. Avoid nephrotoxins (NSAID or IV contrast).Keep MAP>65 Will continue to monitor for kidney function recovery 2- Hypernatremia :Na stable at 147. Continue free water flushes 150 mL every 4 hours I will continue to monitor sodium level 3- Acute hypoxic respiratory failure due to Influenza, CAP/ARDS. vent dependent. Vent management and Abx as per pulm/CCM. 4- Aflutter. now sinus. Cardiology service is following Renal team will continue to follow. Please call with any question or concern Isaura Weldon MD [phone]
--- NOTE | 2018-08-02 16:38 | CHAPLAIN ---
Type of Pastoral Visit ___ Initial Visit ___ Follow-up Visit ___ On-call Visit _x__ General Patient Visit ___ Spiritual Assessment ___ Family Conference ___ Bereavement ___ Rapid Response ___ Code Blue ___ Other (describe below) Pastoral Care Referral From _x__ Patient _x__ Family ___ Nurse ___ Physician ___ Retail Pricing Coordinator ___ [employer] Machine ___ Other (describe below) Sacrament/Intervention ___ Active listening ___ Anointing ___ Sikhism ___ Bereavement ___ Communion ___ Jenna exploration ___ ___ Life review _x__ Prayer ___ Reconciliation ___ Sacrament of Sick _x__ Supportive presence ___ Wedding ___ Other (describe below) Pastoral Comments patient is now awake and I introduced myself; spouse was with pt and we talked about his progress; spouse has been receptive to support from charge [email or web address]
[2018-08-02 18:36] LABS: Bedside Glucose 324 mg/dL (70-110)
--- NOTE | 2018-08-02 18:44 | PCM.PN.CARD ---
Subjectve: Patient seen and evaluated. Still intubated. Objective: Vital Signs Temp Pulse Resp BP Pulse Ox 99 F 113 H 21 H 168/90 H 94 08/02/18 16:00 08/02/18 18:00 08/02/18 18:00 08/02/18 18:00 08/02/18 18:00 Oxygen Flow Rate (L/min) 15 Oxygen Delivery Method Mechanical Ventilator Weight: 246 lb 7.629 oz Body Mass Index (BMI) 38.6 Finger Stick Blood Glucose 200 Intake and Output for Last 24 Hours 07/31/18 08/01/18 08/02/18 23:59 23:59 23:59 Intake Total 2033.7 / 2033.7 2462.6 / 2462.6 1242.2 / 1242.2 Output Total 1925 / 1925 2975 / 2975 1600 / 1600 Balance 108.7 / 108.7 -512.4 / -512.4 -357.8 / -357.8 General: Awake, Alert, Oriented x 3 HEENT: PERRL, EOMI, Sclera Non Icteric Neck: Supple, Good ROM, No Lymph Node Enlargement Lungs: Clear to auscultation Cardiovascular: Irregular Rhythm, Normal S1, Normal S2, No Murmurs, No Rubs, No Gallops Vascular: No Carotid Bruits, Normal Femoral Pulses, Normal Radial Pulses, Normal Dorsalis Pedal Pulse, Normal Posterior Tibial Pulses Abdomen: Bowel Sounds Present, Soft, Non Tender, No HSM, No Organomegaly Extremities: No Cyanosis, No Clubbing, No edema Skin: No Rashes Lymphatic: No Lymph Node Enlargement Neurological: No Focal Motor or Sensory Deficit Psych/Mental Status: Appropriate 08/02/18 04:50: APTT 69.2 H 08/02/18 04:50: Sodium 147 H, Potassium 3.5, Chloride 107, Carbon Dioxide 31.0, Anion Gap 9, BUN 54 H, Creatinine 1.44 H, Est GFR (MDRD) Af Amer 63, Est GFR (MDRD) Non-Af 52 L, BUN/Creatinine Ratio 37.5 H, Glucose 230 H, Calcium 8.3 L Rhythm: EKG: ECHO: Stress Test: Cardiac Cath: PCI: CT Surgery: Holter monitor: EPS: PPM: CXR: Chest CT Scan: Medical Necessity - Tobacco Use Smoking Status: Former smoker Tobacco Use: Non-smoker Assessment/Plan 1. Atrial flutter The patient continues in sinus rhythm at this time. His heart rate however appears to have been trending upwards with a concern that he may go into atrial fibrillation. As you know he is status post previous radiofrequency ablation. The plan will be to restart him on intravenous amiodarone until he is extubated. He is continuing anticoagulant therapy with IV heparin. 2. CAD status post RCA PTCA/RACHEL He will need to be monitored for any obvious involvement of his coronary artery system. Thus far his troponin I level was negative. He has remained hemodynamically stable. He has not had no acute changes on his ECG. He will continue medical management as tolerated. 3. Hyperlipidemia He will continue lipid-lowering therapy as tolerated. 4. Hypertension His blood pressure appears to be stable to elevated at this time. He will continue medical adjustment as needed. Thank you for allowing me to participate in the care of your patient. Please don't hesitate to call if any issues arise
[2018-08-02] MEDS: Pravastatin 80 MG Tablet PO (22:14)
[2018-08-02] MEDS: Vital AF 1.2 Cal Liquid 1,000 ML 60 ML GT (22:18)
[2018-08-03] VITALS (43 sets, daily range): BP systolic 137–177; BP diastolic 64–93; PULSE 66–121; RESP 12–33; TEMP 36.7–37.3; O2SAT 89–97
[2018-08-03] MEDS: Insulin Lispro 100 UNIT/ML INSULN.PEN SC ×4 (00:01→17:38)
[2018-08-03 00:11] LABS: Bedside Glucose 291 mg/dL (70-110)
[2018-08-03] MEDS: CHLORHEXIDINE GLUC 2% CLOTH 1 EACH TOWELETTE TOPICAL (02:28)
[2018-08-03] MEDS: HEPARIN/D5w 25,000 UNITS 25,000 UNITS/250 ML IV.SOLN. 16 UNITS IV (04:35)
[2018-08-03 05:46] LABS: Bedside Glucose 279 mg/dL (70-110)
--- NOTE | 2018-08-03 06:18 | PN_ITS ---
Subjective: The patient was seen and examined at the bedside this morning. Events from the last 24 hours have been reviewed. The patient is currently afebrile, hemodynamically stable and maintaining appropriate oxygen saturations on CPAP with an FiO2 requirement of 35%. The patient was rested on assist control mode of mechanical ventilation overnight. He was transitioned back to CPAP this morning at approximately 0500 hrs. and appears to be doing well. He is currently documented to be overall net +7.3 L for the admission. The patient is alert and appropriately interactive. He is able to follow simple commands. Objective: The patient's most recent lab work, culture data and imaging studies have all been personally reviewed. Chest imaging studies have all revealed significant multifocal bilateral infiltrates. Surface echocardiogram revealed mild concentric LVH with an ejection fraction of 55% and stage II diastolic dysfunction. Pulmonary artery systolic pressure was estimated to be 26 mmHg. The patient's rapid influenza screen was positive for influenza A. The remainder of his infectious workup, including sputum cultures have been unrevealing to date. General: Alert, Cooperative, No apparent distress, - - Remains intubated. Currently tolerating CPAP without issue. HEENT: Atraumatic, PERRLA, Normocephalic Oral: No Gingival or Mucosal Lesions/ Ulcerations, - - Endotracheal and OG tubes remain in place Neck: Supple, No Nodes, Trachea Midline Lungs: No rhonchi, No wheeze, No rales, Diminished Cardiovascular: Regular rate, Regular Rhythm, Normal S1, Normal S2, No murmurs, - - Currently in normal sinus rhythm on telemetry. Abdomen: Bowel Sounds Present, Soft, Non Tender, Obese Extremities: No clubbing, No cyanosis, No edema Skin: No breakdown Musculoskeletal: No Tenderness to Palpation of Joints or Extremities Lymphatic: No Cervical, Supraclavicular, or Inguinal Adenopathy Neurological: Neuro grossly intact, - - Alert and able to follow commands appropriately. Vital Signs Temp Pulse Resp BP Pulse Ox 37.3 C H 89 31 H 174/87 H 92 08/03/18 04:00 08/03/18 06:00 08/03/18 06:00 08/03/18 06:00 08/03/18 06:00 Oxygen Flow Rate (L/min) 15 Oxygen Delivery Method Mechanical Ventilator Weight: 243 lb 13.3 oz Body Mass Index (BMI) 38.6 Finger Stick Blood Glucose 200 Intake and Output for Last 24 Hours 08/01/18 08/02/18 08/03/18 23:59 23:59 23:59 Intake Total 2462.6 / 2462.6 2188.4 / 2188.4 686.2 / 686.2 Output Total 2975 / 2975 2100 / 2100 550 / 550 Balance -512.4 / -512.4 88.4 / 88.4 136.2 / 136.2 Labs (Last 48 Hours) 07/31/18 08/01/18 08/01/18 04:20 09:08 13:15 Diff Path Review Reviewed APTT Sodium Potassium Chloride Carbon Dioxide Anion Gap BUN Creatinine Estim Creat Clear Calc Est GFR (MDRD) Af Amer Est GFR (MDRD) Non-Af BUN/Creatinine Ratio Glucose Calcium POC Glucose 223 H 221 H 08/01/18 08/02/18 08/02/18 18:44 00:44 04:50 Diff Path Review APTT 69.2 H Sodium Potassium Chloride Carbon Dioxide Anion Gap BUN Creatinine Estim Creat Clear Calc Est GFR (MDRD) Af Amer Est GFR (MDRD) Non-Af BUN/Creatinine Ratio Glucose Calcium POC Glucose 214 H 203 H 08/02/18 08/02/18 08/02/18 04:50 05:12 13:23 Diff Path Review APTT Sodium 147 H Potassium 3.5 Chloride 107 Carbon Dioxide 31.0 Anion Gap 9 BUN 54 H Creatinine 1.44 H Estim Creat Clear Calc 49.48 Est GFR (MDRD) Af Amer 63 Est GFR (MDRD) Non-Af 52 L BUN/Creatinine Ratio 37.5 H Glucose 230 H Calcium 8.3 L POC Glucose 236 H 201 H 08/02/18 08/02/18 08/03/18 18:09 23:59 04:35 Diff Path Review APTT 66.0 H Sodium Potassium Chloride Carbon Dioxide Anion Gap BUN Creatinine Estim Creat Clear Calc Est GFR (MDRD) Af Amer Est GFR (MDRD) Non-Af BUN/Creatinine Ratio Glucose Calcium POC Glucose 324 H 291 H 08/03/18 08/03/18 04:35 05:28 Diff Path Review APTT Sodium Pending Potassium Pending Chloride Pending Carbon Dioxide Pending Anion Gap Pending BUN Pending Creatinine Pending Estim Creat Clear Calc Est GFR (MDRD) Af Amer Pending Est GFR (MDRD) Non-Af Pending BUN/Creatinine Ratio Pending Glucose Pending Calcium Pending POC Glucose 279 H Clinical Impression(s) from Imaging Studies KUB X-Ray 07/20/18 18:41 IMPRESSION: No evidence of obstruction or perforation. at 2003 Reported and signed by: Salinas Noriega MD Electronically Signed: Salinas Noriega, at 20:02 EST Tel , Service support , Chest X-Ray 07/20/18 19:30 IMPRESSION: No radiographic evidence of acute cardiopulmonary disease. at 2003 Reported and signed by: Salinas Noriega MD Electronically Signed: Salinas Noriega, at 20:02 EST Tel , Service support , Abdomen X-Ray 07/21/18 11:07 IMPRESSION: Diffuse distention of bowel most likely ileus. Distal colonic obstruction not likely but possible. at 0143 Reported and signed by: Salinas Noriega MD Electronically Signed: Salinas Noriega, at 1:42 EST Tel , Service support , Chest X-Ray 07/22/18 09:37 IMPRESSION: Findings concerning for multifocal pneumonia in the appropriate clinical setting with underlying alveolar edema not completely excluded. Recommend follow-up imaging in 4-6 weeks after appropriate treatment. Electronically Signed: Pacheco Galo DO at 9:56 EST , Service support , Chest CTA 07/22/18 17:51 IMPRESSION: No pulmonary embolus. Multifocal bilateral airspace disease in the lungs similar to the most recent chest radiograph but increased compared to 07/20/18 compatible with multifocal pneumonia versus a noninfectious inflammatory pneumonitis. Small, 4.0 cm, ascending thoracic aortic aneurysm with no hemorrhage or dissection. Individualized dose optimization techniques were used for this CT. at 1927 Reported and signed by: Salinas Noriega MD Electronically Signed: Salinas Noriega, at 19:26 EST Tel , Service support , Chest X-Ray 07/24/18 08:42 IMPRESSION: Progressive bilateral airspace disease. The tip of the endotracheal tube is at 4.1 cm proximal to the sunshine. The tip of the orogastric tube is in the body of the stomach. Electronically Signed: Shar Castillo, at 14:18 EST , Service support , Chest X-Ray 07/25/18 08:20 IMPRESSION: Since prior study, there has been improved aeration of both lungs although residual bilateral airspace disease is seen. Electronically Signed: Shar Castillo, at 9:08 EST , Service support , Chest X-Ray 07/28/18 06:29 IMPRESSION: Since prior study, there has been mild improvement of the aeration of both lungs. Residual bilateral patchy infiltrates are seen. Electronically Signed: Shar Castillo, at 8:22 EST , Service support , KUB X-Ray 07/29/18 05:55 IMPRESSION: Nasogastric tube with its tip in the region of the stomach. Nonspecific gas pattern. Electronically Signed: Emmett Anaya MD at 8:37 EST Tel , Service support , Chest X-Ray 08/01/18 06:46 IMPRESSION: Low-lying ET tube as above. Remainder is unchanged Electronically Signed: Miguel Russell DO at 9:01 EDT Tel , Service support , Medical Necessity - Tobacco Use Smoking Status: Former smoker Tobacco Use: Non-smoker Assessment/Plan All Active Problems (Last Reviewed 07/20/18 @ 21:39 by Joaquín Laughlin DO) Acute bronchitis (Acute) Influenza A (Acute) Constipation (Acute) PAUL (acute kidney injury) (Acute) Atrial flutter (Acute) Paroxysmal atrial fibrillation (Acute) Hyperlipidemia (Acute) RECOMMENDATIONS: 1. Proceed with a trial of extubation this morning. 2. Once extubated, wean supplemental oxygen to maintain saturations at or above 90%. 3. Recommend empiric BiPAP utilization with naps and nightly. 4. Patient to remain n.p.o. until formal evaluation by speech therapy has been completed. IMPRESSIONS: 1. Acute hypoxemic respiratory failure secondary to influenza A infection and severe community-acquired pneumonia/evolving ARDS The patient has a questionable baseline history of COPD. He was seen in the pulmonary medicine clinic 1 year ago, at which time, pulmonary function studies were ordered. However, the patient never followed up. Although the patient was admitted to the hospital with influenza A and a plain film chest x-ray which was largely unremarkable, follow-up chest imaging subsequently revealed evidence of evolving multifocal pneumonia. The patient has essentially gone on to develop full-blown ARDS. He did require intubation on the morning of July 24. He has been maintained on a lung protective ventilator strategy. The patient's clinical status has improved with time. FiO2 and PEEP have been weaned. The patient will be continued on Precedex for sedation. Continuous fentanyl will be discontinued. Tube feeds will be continued. We will continue scheduled Atrovent and steroids as ordered. The patient has already completed his course of Tamiflu and antibiotics. 2. New onset atrial flutter with rapid ventricular rate The patient did require bedside cardioversion on July 26. We will plan to continue medical management per cardiology recommendations. 3. Acute kidney injury Improving. Nephrology is currently following. Avoid nephrotoxic agents. Continue to monitor urine output. No current indication for renal replacement therapy. 4. Known history of pulmonary nodules The patient is actually past due for a repeat CT chest due to his previously identified pulmonary nodules in March 2017. 5. Obstructive sleep apnea The patient is currently noncompliant with the use of nocturnal noninvasive positive pressure ventilation. 6. Rheumatoid arthritis/atrial fibrillation status post ablation/coronary artery disease/tobacco dependency currently in remission Complicates care, management, recovery and prognosis. Continue home medications as indicated. Continue basal and sliding scale insulin regimen. Physical therapy to work with patient, once medically stabilized. TIME: 40 minutes of critical care time, inclusive of procedures, was spent addressing the patient's acute hypoxemic respiratory failure, influenza A infection, severe community-acquired pneumonia, ARDS, acute kidney injury, new onset atrial flutter with rapid ventricular rate, history of pulmonary nodules, obstructive sleep apnea, review of all data and collaboration with the care team. ([id number]) Code Visit 9xxxx: [id number] Critical care first hour
[2018-08-03 06:25] LABS: Anion Gap 8 (5-15); BUN 49 mg/dL (7-18); Calcium,Total 8.7 mg/dL (8.5-10.1); Chloride 106 mmol/L (98-107); Creatinine, Serum 1.44 mg/dL (0.70-1.30); EST Glomerular Filtration Rate 52 mL/min (>60); Est Glom Filt Rate - Afr Amer 63 mL/min (>60); Estimated Creatinine Clearance 49.48 ml/min; Glucose 306 mg/dL (74-106); Potassium 3.2 mmol/L (3.5-5.1); Sodium Level 144 mmol/L (136-145)
--- NOTE | 2018-08-03 07:31 | PCM.PROGNOTE ---
Patient Problems: Active and Suspected Problems (Last Reviewed 07/20/18 @ 21:39 by Joaquín Laughlin DO) Acute bronchitis (Acute) Influenza A (Acute) Constipation (Acute) PAUL (acute kidney injury) (Acute) Atrial flutter (Acute) Subjective: All events of the past 24 hours been reviewed. He is afebrile. Vital signs are stable. Systolic blood pressure is increased possibly due to anxiety from being awake now. He is maintaining appropriate oxygen saturation on a 35% FiO2 on CPAP. Fluid balance for 08/02/2018 was +88. Fluid balance since admission is +7354. PTT is 66 today. Potassium is low at 3.2. Creatinine is stable at 1.44. Blood sugars are not adequately controlled but, the TF was on hold yesterday for possible extubation and the SSI was not changed and he is already on a high scale. No complaints....all he will say is he wants coffee Large BM today Objective: PHYSICAL EXAM: GENERAL: awake but looks confused....not responding appropriately to questions, Cooperative, NAD ORAL: dry mucosa, no mucosal lesions NECK: No JVD, supple, trachea midline LUNGS: CTA, diminished, symmetric chest expansion HEART: RRR, Normal S1 and S2, no rub, no gallop, MM at the second RICS and the apex - systolic ABDOMEN: soft, NT, ND, BS present, no guarding with palpation, no complaint of pain with palpation EXTREMITIES: edema of the feet and the hands primarily, no cyanosis, no calf tenderness SKIN: No rashes, no breakdown NEUROLOGIC: no focal neurologic deficits PSYCH: awake but still rather obtunded...... - Physical Exam Vital Signs Temp Pulse Resp BP Pulse Ox 99.2 F H 89 29 H 174/87 H 94 08/03/18 04:00 08/03/18 06:30 08/03/18 06:30 08/03/18 06:00 08/03/18 06:30 Oxygen Flow Rate (L/min) 15 Oxygen Delivery Method Mechanical Ventilator Weight: 243 lb 13.3 oz Body Mass Index (BMI) 38.6 Finger Stick Blood Glucose 200 Intake and Output for Last 24 Hours 08/01/18 08/02/18 08/03/18 23:59 23:59 23:59 Intake Total 2462.6 / 2462.6 2188.4 / 2188.4 686.2 / 686.2 Output Total 2975 / 2975 2100 / 2100 550 / 550 Balance -512.4 / -512.4 88.4 / 88.4 136.2 / 136.2 Laboratory Tests Past 24 Hrs 08/03/18 08/03/18 04:35 04:35 APTT 66.0 H Sodium 144 Potassium 3.2 L Chloride 106 Carbon Dioxide 30.0 Anion Gap 8 BUN 49 H Creatinine 1.44 H Estim Creat Clear Calc 49.48 Est GFR (MDRD) Af Amer 63 Est GFR (MDRD) Non-Af 52 L BUN/Creatinine Ratio 34.0 H Glucose 306 H Calcium 8.7 POC Glucose 08/03/18 08/02/18 08/02/18 05:28 23:59 18:09 POC Glucose 279 H 291 H 324 H 08/02/18 13:23 POC Glucose 201 H Medical Necessity - Tobacco Use Smoking Status: Former smoker Tobacco Use: Non-smoker Assessment/Plan All Active Problems (Last Reviewed 07/20/18 @ 21:39 by Joaquín Laughlin DO) Acute bronchitis (Acute) Influenza A (Acute) Constipation (Acute) PAUL (acute kidney injury) (Acute) Atrial flutter (Acute) Paroxysmal atrial fibrillation (Acute) Hyperlipidemia (Acute) Impressions 1. Severe sepsis secondary to influenza A with community-acquired pneumonia and acute respiratory failure with hypoxemia 2. Acute respiratory failure with hypoxemia 3. Influenza A 4. Severe community-acquired pneumonia 5. Known history of pulmonary nodules 6. Obstructive sleep apnea-noncompliant with nocturnal noninvasive positive pressure ventilation 7. Rheumatoid arthritis-on methotrexate 8. Atrial fibrillation-status post ablation 9. Coronary artery disease with history of PCI 10. History of tobacco dependence in remission 11. Acute renal failure-improving 12. Diabetes mellitus type 2, uncontrolled-hemoglobin A1c 9.3 13. Metabolic alkalosis-suspect secondary to diuretics/volume contraction 14. Severe malnutrition Extubated this AM and doing well -----will be on BIPAP overnight and any time he is sleeping because he has sleep apnea Supplement potassium Speech therapy evaluation prior to any attempt to feed him Pressure is somewhat high will add a as needed antihypertensive When he is approved for a diet will convert to prednisone, p.o. amiodarone and an oral anticoagulant. Continue heparin infusion for now. PT/OT Recheck BMP in the a.m. no adjustments to the insulin until we see if he is going to be able to start on a diet Start IV fluids since he is currently NPO and tube feeds have been discontinued Code Visit Inpatient E&M: 33303 Subs Hosp L3
--- NOTE | 2018-08-03 09:15 | CASEMGMT ---
RN CM Note: participated in interdisciplinary rounds. Pt was extubated today, now on 4L NC. participating in rounds, pt is sleepy. Remains on amiodarone gtt, IV Solumedrol. Speech eval today prior to diet ordering. Passed PT/OT. Plan is for [facility] on discharge. Rica DAWKINS RN ACM
--- NOTE | 2018-08-03 09:57 | CASEMGMT ---
Addendum entered by Radha Ac 08/03/18 13:18: SW spoke w/Sabina at [facility], they can take pt when he is ready. SW let and pt know he has been accepted to [facility] when ready. agreeable. SW will continue to follow. NIKOLE Matias, [employer] Original Note: Pt has been extubated this morning. SW called [facility], message left, referral faxed. NIKOLE Matias, [employer]AL[employer] CONTR[employer] TE[employer]
[2018-08-03] MEDS: Potassium Chloride 10mEq/100mL 10 MEQ/100 ML IV.SOLN. 100 MEQ IV BOLUS ×4 (10:14→16:00)
[2018-08-03] MEDS: Ipratropium 0.5 MG/2.5 ML SOLUTION INHALATION ×4 (11:03→23:10)
[2018-08-03] MEDS: 0.9% NaCl Peripheral Flush Adult/Peds IV ×3 (11:59→17:38)
[2018-08-03 12:27] LABS: Bedside Glucose 263 mg/dL (70-110)
--- NOTE | 2018-08-03 12:55 | PN.RENAL_ITS ---
Patient Problems: Active and Suspected Problems (Last Reviewed 07/20/18 @ 21:39 by Joaquín Laughlin DO) Acute bronchitis (Acute) Influenza A (Acute) Constipation (Acute) CAMELIA (acute kidney injury) (Acute) Atrial flutter (Acute) Subjective: Patient was extubated. Currently on nasal cannula. Patient said his breathing is stable. No nausea no vomiting. No shortness of breath. Patient asking to drink - Physical Exam General: Alert, Oriented x3 HEENT: Atraumatic Oral: Moist Mucosa Neck: Supple, No JVD Lungs: Clear to auscultation, Normal air movement, No rhonchi, No wheeze Cardiovascular: Regular rate, Regular Rhythm, Normal S1, Normal S2 Abdomen: Bowel Sounds Present, Soft, Non Tender Extremities: No clubbing, No cyanosis, No edema Skin: No rashes Musculoskeletal: No Tenderness to Palpation of Joints or Extremities Lymphatic: No Cervical, Supraclavicular, or Inguinal Adenopathy Neurological: Cranial nerves II-XII grossly intact, Neuro grossly intact Psych/Mental Status: Appropriate Vital Signs Temp Pulse Resp BP Pulse Ox 98.3 F 80 30 H 173/76 H 93 08/03/18 12:00 08/03/18 12:00 08/03/18 12:00 08/03/18 12:00 08/03/18 12:00 Oxygen Flow Rate (L/min) 4 Oxygen Delivery Method Nasal Cannula Weight: 110.6 kg Body Mass Index (BMI) 38.6 Finger Stick Blood Glucose 200 Intake and Output for Last 24 Hours 08/01/18 08/02/18 08/03/18 23:59 23:59 23:59 Intake Total 2462.6 / 2462.6 2188.4 / 2188.4 686.2 / 686.2 Output Total 2975 / 2975 2100 / 2100 550 / 550 Balance -512.4 / -512.4 88.4 / 88.4 136.2 / 136.2 Laboratory Tests Past 24 Hrs 08/03/18 08/03/18 04:35 04:35 APTT 66.0 H Sodium 144 Potassium 3.2 L Chloride 106 Carbon Dioxide 30.0 Anion Gap 8 BUN 49 H Creatinine 1.44 H Estim Creat Clear Calc 49.48 Est GFR (MDRD) Af Amer 63 Est GFR (MDRD) Non-Af 52 L BUN/Creatinine Ratio 34.0 H Glucose 306 H Calcium 8.7 POC Glucose 08/03/18 08/03/18 08/02/18 12:16 05:28 23:59 POC Glucose 263 H 279 H 291 H 08/02/18 08/02/18 18:09 13:23 POC Glucose 324 H 201 H Medical Necessity - Tobacco Use Smoking Status: Former smoker Tobacco Use: Non-smoker Assessment/Plan All Active Problems (Last Reviewed 07/20/18 @ 21:39 by Joaquín Laughlin DO) Acute bronchitis (Acute) Influenza A (Acute) Constipation (Acute) CAMELIA (acute kidney injury) (Acute) Atrial flutter (Acute) Paroxysmal atrial fibrillation (Acute) Hyperlipidemia (Acute) 1. Acute kidney onjury. Normal baseline renal function. Camelia is 2/2 ischemic ATN.Cr peaked at 2.1 on 07/25 Pt did not need [employer]. Creatinine is stable 1.4 mg deciliter. Urine output 2.1 L No need for dialysis. Avoid nephrotoxins (NSAID or IV contrast).Keep MAP>65 Will continue to monitor panel 2- Hypernatremia : Resolved. Sodium today 142. 3- Acute hypoxic respiratory failure due to Influenza, CAP/ARDS. Patient was extubated. Antibiotic treatment as per the ICU team 4- Aflutter. now sinus. Cardiology service is following Renal team will continue to follow. Please call with any question or concern Isaura Weldon MD [phone]
--- NOTE | 2018-08-03 17:17 | PN.CARD_ITS ---
Subjectve: Patient seen and evaluated. Appears to be doing better recently extubated. Still looks ill. Objective: Vital Signs Temp Pulse Resp BP Pulse Ox 98.3 F 71 29 H 167/87 H 97 08/03/18 12:00 08/03/18 17:00 08/03/18 17:00 08/03/18 17:00 08/03/18 17:00 Oxygen Flow Rate (L/min) 4 Oxygen Delivery Method Nasal Cannula Weight: 243 lb 13.3 oz Body Mass Index (BMI) 38.6 Finger Stick Blood Glucose 200 Intake and Output for Last 24 Hours 08/01/18 08/02/18 08/03/18 23:59 23:59 23:59 Intake Total 2462.6 / 2462.6 2188.4 / 2188.4 1388.2 / 1388.2 Output Total 2975 / 2975 2100 / 2100 550 / 550 Balance -512.4 / -512.4 88.4 / 88.4 838.2 / 838.2 General: Awake, Alert, Oriented x 3, Ill Appearing HEENT: PERRL, EOMI, Sclera Non Icteric Neck: Supple, Good ROM, No Lymph Node Enlargement Lungs: Clear to auscultation Cardiovascular: Regular Rhythm, Normal S1, Normal S2, No Murmurs, No Rubs, No Gallops Vascular: No Carotid Bruits, Normal Femoral Pulses, Normal Radial Pulses, Normal Dorsalis Pedal Pulse, Normal Posterior Tibial Pulses Abdomen: Bowel Sounds Present, Soft, Non Tender, No HSM, No Organomegaly Extremities: No Cyanosis, No Clubbing, No edema Neurological: No Focal Motor or Sensory Deficit Psych/Mental Status: Appropriate 08/03/18 04:35: APTT 66.0 H 08/03/18 04:35: Sodium 144, Potassium 3.2 L, Chloride 106, Carbon Dioxide 30.0, Anion Gap 8, BUN 49 H, Creatinine 1.44 H, Est GFR (MDRD) Af Amer 63, Est GFR (MDRD) Non-Af 52 L, BUN/Creatinine Ratio 34.0 H, Glucose 306 H, Calcium 8.7 Rhythm: EKG: ECHO: Stress Test: Cardiac Cath: PCI: CT Surgery: Holter monitor: EPS: PPM: CXR: Chest CT Scan: Medical Necessity - Tobacco Use Smoking Status: Former smoker Tobacco Use: Non-smoker Assessment/Plan 1. Atrial flutter The patient continues in sinus rhythm at this time. His heart rate however appears to have been trending upwards with a concern that he may go into atrial fibrillation. As you know he is status post previous radiofrequency ablation. * Now that he is extubated we can restart the p.o. amiodarone and see how he does. 2. CAD status post RCA PTCA/RACHEL He will need to be monitored for any obvious involvement of his coronary artery system. Thus far his troponin I level was negative. He has remained hemodynamically stable. He has not had no acute changes on his ECG. He will continue medical management as tolerated. 3. Hyperlipidemia He will continue lipid-lowering therapy as tolerated. 4. Hypertension His blood pressure appears to be stable to elevated at this time. He will continue medical adjustment as needed. Thank you for allowing me to participate in the care of your patient. Please don't hesitate to call if any issues arise
[2018-08-03 17:26] LABS: Bedside Glucose 291 mg/dL (70-110)
[2018-08-03] MEDS: Potassium Chloride 10 MEQ in Dext 5%-0.45% NS 1,000 ML 80 MEQ IV (17:39)
[2018-08-03] MEDS: Amiodarone 200 MG Tablet PO (21:54)
[2018-08-03] MEDS: Pravastatin 80 MG Tablet PO (21:54)
[2018-08-04] VITALS (31 sets, daily range): BP systolic 136–182; BP diastolic 70–100; PULSE 42–126; RESP 12–32; TEMP 36.3–37.2; O2SAT 91–97
[2018-08-04] MEDS: Insulin Lispro 100 UNIT/ML INSULN.PEN SC ×4 (00:21→16:55)
[2018-08-04 00:31] LABS: Bedside Glucose 268 mg/dL (70-110)
[2018-08-04] MEDS: HEPARIN/D5w 25,000 UNITS 25,000 UNITS/250 ML IV.SOLN. 16 UNITS IV (02:42)
[2018-08-04] MEDS: Ipratropium 0.5 MG/2.5 ML SOLUTION INHALATION ×4 (03:50→20:00)
--- NOTE | 2018-08-04 06:54 | PCM.PN.INT ---
Subjective: The patient was seen and examined at the bedside this morning. Events from the last 24 hours have been reviewed. The patient is currently afebrile, hemodynamically stable and maintaining appropriate oxygen saturations on 4 L/min via nasal cannula. The patient tolerated BiPAP overnight without issue. He is currently documented to be overall net +8.1 L for the admission. The patient is currently on a modified diet per speech therapy recommendations. The patient has done well from a respiratory perspective following extubation yesterday. Objective: The patient's most recent lab work, culture data and imaging studies have all been personally reviewed. Chest imaging studies have all revealed significant multifocal bilateral infiltrates. Surface echocardiogram revealed mild concentric LVH with an ejection fraction of 55% and stage II diastolic dysfunction. Pulmonary artery systolic pressure was estimated to be 26 mmHg. The patient's rapid influenza screen was positive for influenza A. The remainder of his infectious workup, including sputum cultures have been unrevealing to date. General: Alert, Cooperative, No apparent distress HEENT: Atraumatic, PERRLA, Normocephalic Oral: Dry Mucosa Neck: Supple, No Nodes, Trachea Midline Lungs: No rhonchi, No wheeze, No rales, Diminished Cardiovascular: Regular rate, Regular Rhythm, Normal S1, Normal S2 Abdomen: Bowel Sounds Present, Soft, Non Tender Extremities: No clubbing, No cyanosis, No edema Skin: No breakdown Musculoskeletal: No Muscle Wasting Lymphatic: No Cervical, Supraclavicular, or Inguinal Adenopathy Neurological: Neuro grossly intact Psych/Mental Status: Flat Affect Vital Signs Temp Pulse Resp BP Pulse Ox 36.7 C 126 H 29 H 154/100 H 91 08/04/18 04:00 08/04/18 06:51 08/04/18 06:51 08/04/18 06:00 08/04/18 06:51 Oxygen Flow Rate (L/min) 4 Oxygen Delivery Method Bi-pap Weight: 243 lb 13.3 oz Body Mass Index (BMI) 38.6 Finger Stick Blood Glucose 200 Intake and Output for Last 24 Hours 08/02/18 08/03/18 08/04/18 23:59 23:59 23:59 Intake Total 2188.4 / 2188.4 1531.2 / 1531.2 1158 / 1158 Output Total 2100 / 2100 1450 / 1450 355 / 355 Balance 88.4 / 88.4 81.2 / 81.2 803 / 803 Labs (Last 48 Hours) 08/02/18 08/02/18 08/02/18 13:23 18:09 23:59 APTT Sodium Potassium Chloride Carbon Dioxide Anion Gap BUN Creatinine Estim Creat Clear Calc Est GFR (MDRD) Af Amer Est GFR (MDRD) Non-Af BUN/Creatinine Ratio Glucose Calcium Magnesium POC Glucose 201 H 324 H 291 H 08/03/18 08/03/18 08/03/18 04:35 04:35 05:28 APTT 66.0 H Sodium 144 Potassium 3.2 L Chloride 106 Carbon Dioxide 30.0 Anion Gap 8 BUN 49 H Creatinine 1.44 H Estim Creat Clear Calc 49.48 Est GFR (MDRD) Af Amer 63 Est GFR (MDRD) Non-Af 52 L BUN/Creatinine Ratio 34.0 H Glucose 306 H Calcium 8.7 Magnesium POC Glucose 279 H 08/03/18 08/03/18 08/04/18 12:16 17:13 00:19 APTT Sodium Potassium Chloride Carbon Dioxide Anion Gap BUN Creatinine Estim Creat Clear Calc Est GFR (MDRD) Af Amer Est GFR (MDRD) Non-Af BUN/Creatinine Ratio Glucose Calcium Magnesium POC Glucose 263 H 291 H 268 H 08/04/18 08/04/18 06:20 06:20 APTT Pending Sodium Pending Potassium Pending Chloride Pending Carbon Dioxide Pending Anion Gap Pending BUN Pending Creatinine Pending Estim Creat Clear Calc Est GFR (MDRD) Af Amer Pending Est GFR (MDRD) Non-Af Pending BUN/Creatinine Ratio Pending Glucose Pending Calcium Pending Magnesium Pending POC Glucose Clinical Impression(s) from Imaging Studies KUB X-Ray 07/20/18 18:41 IMPRESSION: No evidence of obstruction or perforation. at 2003 Reported and signed by: Salinas Noriega MD Electronically Signed: Salinas Noriega, at 20:02 EST Tel , Service support , Chest X-Ray 07/20/18 19:30 IMPRESSION: No radiographic evidence of acute cardiopulmonary disease. at 2003 Reported and signed by: Salinas Noriega MD Electronically Signed: Salinas Noriega, at 20:02 EST Tel , Service support , Abdomen X-Ray 07/21/18 11:07 IMPRESSION: Diffuse distention of bowel most likely ileus. Distal colonic obstruction not likely but possible. at 0143 Reported and signed by: Salinas Noriega MD Electronically Signed: Salinas Noriega, at 1:42 EST Tel , Service support , Chest X-Ray 07/22/18 09:37 IMPRESSION: Findings concerning for multifocal pneumonia in the appropriate clinical setting with underlying alveolar edema not completely excluded. Recommend follow-up imaging in 4-6 weeks after appropriate treatment. Electronically Signed: Pacheco Galo DO at 9:56 EST , Service support , Chest CTA 07/22/18 17:51 IMPRESSION: No pulmonary embolus. Multifocal bilateral airspace disease in the lungs similar to the most recent chest radiograph but increased compared to 07/20/18 compatible with multifocal pneumonia versus a noninfectious inflammatory pneumonitis. Small, 4.0 cm, ascending thoracic aortic aneurysm with no hemorrhage or dissection. Individualized dose optimization techniques were used for this CT. at 1927 Reported and signed by: Salinas Noriega MD Electronically Signed: Salinas Noriega, at 19:26 EST Tel , Service support , Chest X-Ray 07/24/18 08:42 IMPRESSION: Progressive bilateral airspace disease. The tip of the endotracheal tube is at 4.1 cm proximal to the sunshine. The tip of the orogastric tube is in the body of the stomach. Electronically Signed: Shar Camposvinnie, at 14:18 EST , Service support , Chest X-Ray 07/25/18 08:20 IMPRESSION: Since prior study, there has been improved aeration of both lungs although residual bilateral airspace disease is seen. Electronically Signed: Shar Jonathan, at 9:08 EST , Service support , Chest X-Ray 07/28/18 06:29 IMPRESSION: Since prior study, there has been mild improvement of the aeration of both lungs. Residual bilateral patchy infiltrates are seen. Electronically Signed: Shar Jonathan, at 8:22 EST , Service support , KUB X-Ray 07/29/18 05:55 IMPRESSION: Nasogastric tube with its tip in the region of the stomach. Nonspecific gas pattern. Electronically Signed: Emmett Anaya MD at 8:37 EST Tel , Service support , Chest X-Ray 08/01/18 06:46 IMPRESSION: Low-lying ET tube as above. Remainder is unchanged Electronically Signed: Miguel Russell DO at 9:01 EDT Tel , Service support , Medical Necessity - Tobacco Use Smoking Status: Former smoker Tobacco Use: Non-smoker Assessment/Plan All Active Problems (Last Reviewed 07/20/18 @ 21:39 by Joaquín Laughlin DO) Acute bronchitis (Acute) Influenza A (Acute) Constipation (Acute) PAUL (acute kidney injury) (Acute) Atrial flutter (Acute) Paroxysmal atrial fibrillation (Acute) Hyperlipidemia (Acute) RECOMMENDATIONS: 1. Wean supplemental oxygen to maintain saturations at or above 90%. Encourage incentive spirometer use. 2. Continue nocturnal BiPAP therapy. 3. Continue bronchodilators. 4. Transition from heparin infusion to Eliquis. 5. Resume methotrexate per home regimen. 6. Transition from IV steroids to prednisone 40 mg daily. Plan for prolonged taper. IMPRESSIONS: 1. Acute hypoxemic respiratory failure secondary to influenza A infection and severe community-acquired pneumonia/evolving ARDS The patient has a questionable baseline history of COPD. He was seen in the pulmonary medicine clinic 1 year ago, at which time, pulmonary function studies were ordered. However, the patient never followed up. Although the patient was admitted to the hospital with influenza A and a plain film chest x-ray which was largely unremarkable, follow-up chest imaging subsequently revealed evidence of evolving multifocal pneumonia. The patient has essentially gone on to develop full-blown ARDS. He did require intubation on the morning of July 24. The patient was maintained on a lung protective ventilator strategy and his clinical status improved with time. He was able to be successfully extubated on August 03. He has done well from a respiratory perspective following extubation. We will plan to continue to wean supplemental oxygen to maintain saturations at or above 90%. Encourage incentive spirometer use and mobilize patient as tolerated. The patient's IV steroids can be transitioned to prednisone 40 mg daily. 2. New onset atrial flutter with rapid ventricular rate The patient did require bedside cardioversion on July 26. We will plan to continue medical management per cardiology recommendations. The patient's heparin drip can be transition to Eliquis from my perspective. 3. Known history of pulmonary nodules The patient is actually past due for a repeat CT chest due to his previously identified pulmonary nodules in March 2017. 4. Obstructive sleep apnea The patient has been noncompliant with the use of nocturnal noninvasive positive pressure ventilation in the past. While admitted to the hospital, would plan to continue empiric BiPAP utilization with a pressure support of 12/6 centimeters of water with naps and nightly. 5. Rheumatoid arthritis/atrial fibrillation status post ablation/coronary artery disease/tobacco dependency currently in remission Complicates care, management, recovery and prognosis. Continue home medications as indicated. Continue basal and sliding scale insulin regimen. Physical therapy to work with patient. This note was generated with [employer] software. It may contain incorrect words, spelling, and punctuation that were not noted in checking the note before signing. DISPOSITION: The patient is medically stable for transfer out of the intensive care unit. Code Visit Inpatient E&M: 34027 Subs Hosp L3
--- NOTE | 2018-08-04 06:57 | PN_ITS ---
Subjective: The patient was seen and examined at the bedside this morning. Events from the last 24 hours have been reviewed. The patient is currently afebrile, hemodynamically stable and maintaining appropriate oxygen saturations on 4 L/min via nasal cannula. The patient tolerated BiPAP overnight without issue. He is currently documented to be overall net +8.1 L for the admission. The patient is currently on a modified diet per speech therapy recommendations. The patient has done well from a respiratory perspective following extubation yesterday. Objective: The patient's most recent lab work, culture data and imaging studies have all been personally reviewed. Chest imaging studies have all revealed significant multifocal bilateral infiltrates. Surface echocardiogram revealed mild concentric LVH with an ejection fraction of 55% and stage II diastolic dysfunction. Pulmonary artery systolic pressure was estimated to be 26 mmHg. The patient's rapid influenza screen was positive for influenza A. The remainder of his infectious workup, including sputum cultures have been unrevealing to date. General: Alert, Cooperative, No apparent distress HEENT: Atraumatic, PERRLA, Normocephalic Oral: Dry Mucosa Neck: Supple, No Nodes, Trachea Midline Lungs: No rhonchi, No wheeze, No rales, Diminished Cardiovascular: Regular rate, Regular Rhythm, Normal S1, Normal S2 Abdomen: Bowel Sounds Present, Soft, Non Tender Extremities: No clubbing, No cyanosis, No edema Skin: No breakdown Musculoskeletal: No Muscle Wasting Lymphatic: No Cervical, Supraclavicular, or Inguinal Adenopathy Neurological: Neuro grossly intact Psych/Mental Status: Flat Affect Vital Signs Temp Pulse Resp BP Pulse Ox 36.7 C 126 H 29 H 154/100 H 91 08/04/18 04:00 08/04/18 06:51 08/04/18 06:51 08/04/18 06:00 08/04/18 06:51 Oxygen Flow Rate (L/min) 4 Oxygen Delivery Method Bi-pap Weight: 243 lb 13.3 oz Body Mass Index (BMI) 38.6 Finger Stick Blood Glucose 200 Intake and Output for Last 24 Hours 08/02/18 08/03/18 08/04/18 23:59 23:59 23:59 Intake Total 2188.4 / 2188.4 1531.2 / 1531.2 1158 / 1158 Output Total 2100 / 2100 1450 / 1450 355 / 355 Balance 88.4 / 88.4 81.2 / 81.2 803 / 803 Labs (Last 48 Hours) 08/02/18 08/02/18 08/02/18 13:23 18:09 23:59 APTT Sodium Potassium Chloride Carbon Dioxide Anion Gap BUN Creatinine Estim Creat Clear Calc Est GFR (MDRD) Af Amer Est GFR (MDRD) Non-Af BUN/Creatinine Ratio Glucose Calcium Magnesium POC Glucose 201 H 324 H 291 H 08/03/18 08/03/18 08/03/18 04:35 04:35 05:28 APTT 66.0 H Sodium 144 Potassium 3.2 L Chloride 106 Carbon Dioxide 30.0 Anion Gap 8 BUN 49 H Creatinine 1.44 H Estim Creat Clear Calc 49.48 Est GFR (MDRD) Af Amer 63 Est GFR (MDRD) Non-Af 52 L BUN/Creatinine Ratio 34.0 H Glucose 306 H Calcium 8.7 Magnesium POC Glucose 279 H 08/03/18 08/03/18 08/04/18 12:16 17:13 00:19 APTT Sodium Potassium Chloride Carbon Dioxide Anion Gap BUN Creatinine Estim Creat Clear Calc Est GFR (MDRD) Af Amer Est GFR (MDRD) Non-Af BUN/Creatinine Ratio Glucose Calcium Magnesium POC Glucose 263 H 291 H 268 H 08/04/18 08/04/18 06:20 06:20 APTT Pending Sodium Pending Potassium Pending Chloride Pending Carbon Dioxide Pending Anion Gap Pending BUN Pending Creatinine Pending Estim Creat Clear Calc Est GFR (MDRD) Af Amer Pending Est GFR (MDRD) Non-Af Pending BUN/Creatinine Ratio Pending Glucose Pending Calcium Pending Magnesium Pending POC Glucose Clinical Impression(s) from Imaging Studies KUB X-Ray 07/20/18 18:41 IMPRESSION: No evidence of obstruction or perforation. at 2003 Reported and signed by: Salinas Noriega MD Electronically Signed: Salinas Noriega, at 20:02 EST Tel , Service support , Chest X-Ray 07/20/18 19:30 IMPRESSION: No radiographic evidence of acute cardiopulmonary disease. at 2003 Reported and signed by: Salinas Noriega MD Electronically Signed: Salinas Noriega, at 20:02 EST Tel , Service support , Abdomen X-Ray 07/21/18 11:07 IMPRESSION: Diffuse distention of bowel most likely ileus. Distal colonic obstruction not likely but possible. at 0143 Reported and signed by: Salinas Noriega MD Electronically Signed: Salinas oNriega, at 1:42 EST Tel , Service support , Chest X-Ray 07/22/18 09:37 IMPRESSION: Findings concerning for multifocal pneumonia in the appropriate clinical setting with underlying alveolar edema not completely excluded. Recommend follow-up imaging in 4-6 weeks after appropriate treatment. Electronically Signed: Pacheco Galo DO at 9:56 EST , Service support , Chest CTA 07/22/18 17:51 IMPRESSION: No pulmonary embolus. Multifocal bilateral airspace disease in the lungs similar to the most recent chest radiograph but increased compared to 07/20/18 compatible with multifocal pneumonia versus a noninfectious inflammatory pneumonitis. Small, 4.0 cm, ascending thoracic aortic aneurysm with no hemorrhage or dissection. Individualized dose optimization techniques were used for this CT. at 1927 Reported and signed by: Salinas Noriega MD Electronically Signed: Salinas Noriega, at 19:26 EST Tel , Service support , Chest X-Ray 07/24/18 08:42 IMPRESSION: Progressive bilateral airspace disease. The tip of the endotracheal tube is at 4.1 cm proximal to the sunshine. The tip of the orogastric tube is in the body of the stomach. Electronically Signed: Shar Camposvinnie, at 14:18 EST , Service support , Chest X-Ray 07/25/18 08:20 IMPRESSION: Since prior study, there has been improved aeration of both lungs although residual bilateral airspace disease is seen. Electronically Signed: Shar Jonathan, at 9:08 EST , Service support , Chest X-Ray 07/28/18 06:29 IMPRESSION: Since prior study, there has been mild improvement of the aeration of both lungs. Residual bilateral patchy infiltrates are seen. Electronically Signed: Shar Jonathan, at 8:22 EST , Service support , KUB X-Ray 07/29/18 05:55 IMPRESSION: Nasogastric tube with its tip in the region of the stomach. Nonspecific gas pattern. Electronically Signed: Emmett Anaya MD at 8:37 EST Tel , Service support , Chest X-Ray 08/01/18 06:46 IMPRESSION: Low-lying ET tube as above. Remainder is unchanged Electronically Signed: Miguel Russell DO at 9:01 EDT Tel , Service support , Medical Necessity - Tobacco Use Smoking Status: Former smoker Tobacco Use: Non-smoker Assessment/Plan All Active Problems (Last Reviewed 07/20/18 @ 21:39 by Joaquín Laughlin DO) Acute bronchitis (Acute) Influenza A (Acute) Constipation (Acute) PAUL (acute kidney injury) (Acute) Atrial flutter (Acute) Paroxysmal atrial fibrillation (Acute) Hyperlipidemia (Acute) RECOMMENDATIONS: 1. Wean supplemental oxygen to maintain saturations at or above 90%. Encourage incentive spirometer use. 2. Continue nocturnal BiPAP therapy. 3. Continue bronchodilators. 4. Transition from heparin infusion to Eliquis. 5. Resume methotrexate per home regimen. 6. Transition from IV steroids to prednisone 40 mg daily. Plan for prolonged taper. IMPRESSIONS: 1. Acute hypoxemic respiratory failure secondary to influenza A infection and severe community-acquired pneumonia/evolving ARDS The patient has a questionable baseline history of COPD. He was seen in the pulmonary medicine clinic 1 year ago, at which time, pulmonary function studies were ordered. However, the patient never followed up. Although the patient was admitted to the hospital with influenza A and a plain film chest x-ray which was largely unremarkable, follow-up chest imaging subsequently revealed evidence of evolving multifocal pneumonia. The patient has essentially gone on to develop full-blown ARDS. He did require intubation on the morning of July 24. The patient was maintained on a lung protective ventilator strategy and his clinical status improved with time. He was able to be successfully extubated on August 03. He has done well from a respiratory perspective following extubation. We will plan to continue to wean supplemental oxygen to maintain saturations at or above 90%. Encourage incentive spirometer use and mobilize patient as tolerated. The patient's IV steroids can be transitioned to prednisone 40 mg daily. 2. New onset atrial flutter with rapid ventricular rate The patient did require bedside cardioversion on July 26. We will plan to continue medical management per cardiology recommendations. The patient's heparin drip can be transition to Eliquis from my perspective. 3. Known history of pulmonary nodules The patient is actually past due for a repeat CT chest due to his previously identified pulmonary nodules in March 2017. 4. Obstructive sleep apnea The patient has been noncompliant with the use of nocturnal noninvasive positive pressure ventilation in the past. While admitted to the hospital, would plan to continue empiric BiPAP utilization with a pressure support of 12/6 centimeters of water with naps and nightly. 5. Rheumatoid arthritis/atrial fibrillation status post ablation/coronary artery disease/tobacco dependency currently in remission Complicates care, management, recovery and prognosis. Continue home medications as indicated. Continue basal and sliding scale insulin regimen. Physical therapy to work with patient. This note was generated with [employer] software. It may contain incorrect words, spelling, and punctuation that were not noted in checking the note before signing. DISPOSITION: The patient is medically stable for transfer out of the intensive care unit. Code Visit Inpatient E&M: 10099 Subs Hosp L3
[2018-08-04 06:58] LABS: Partial Thromboplast Time 64.2 Seconds (24.1-36.2)
[2018-08-04 07:01] LABS: Bedside Glucose 249 mg/dL (70-110)
[2018-08-04 07:03] LABS: Anion Gap 7 (5-15); BUN 42 mg/dL (7-18); BUN/Creat Ratio 36.2 RATIO (10-20); Chloride 109 mmol/L (98-107); Creatinine, Serum 1.16 mg/dL (0.70-1.30); EST Glomerular Filtration Rate 67 mL/min (>60); Est Glom Filt Rate - Afr Amer 81 mL/min (>60); Estimated Creatinine Clearance 61.42 ml/min; Glucose 247 mg/dL (74-106); Magnesium 2.2 mg/dL (1.6-2.6); Potassium 3.7 mmol/L (3.5-5.1); Sodium Level 146 mmol/L (136-145)
--- NOTE | 2018-08-04 08:18 | PCM.PROGNOTE ---
Patient Problems: Active and Suspected Problems (Last Reviewed 07/20/18 @ 21:39 by Joaquín Laughlin DO) Acute bronchitis (Acute) Influenza A (Acute) Constipation (Acute) PAUL (acute kidney injury) (Acute) Atrial flutter (Acute) Subjective: Patient was extubated on 08/03/2018. All events the past 24 hours been reviewed. He is afebrile. Blood pressures are stable. He is currently 96% saturated on a 4 L nasal cannula with a respiratory rate of 27. Overnight he was rested on BiPAP and maintained an oxygen saturation of 91-96% on a 35 to 40% FiO2. Fluid balance on 08/03/2018 was +81 cc. All lab was personally reviewed. PTT is 64.2. Sodium is 146 today. Potassium has been repleted and is 3.7. BUN is 42 and the creatinine is 1.16, down from 1.44 yesterday. Blood sugars are in the 200s. He was seen by the speech therapist on 08/03/2018 and approved for pur?ed textures with honey thick liquids. He fatigues easily. Modified barium swallow was recommended. Objective: PHYSICAL EXAM: GENERAL: awake but not alert, Cooperative, NAD, looks dazed ORAL: dry mucosa, no mucosal lesions NECK: No JVD, supple, trachea midline LUNGS: CTA, diminished, symmetric chest expansion, poor respiratory effort HEART: RRR, Normal S1 and S2, no rub, no gallop, MM at the second RICS and the apex - systolic ABDOMEN: soft, NT, ND, BS present, no guarding with palpation, no complaint of pain with palpation EXTREMITIES: no edema of the feet and the hands today, no cyanosis, no calf tenderness SKIN: No rashes, no breakdown NEUROLOGIC: no focal neurologic deficits PSYCH: awake but still rather obtunded...... - Physical Exam Vital Signs Temp Pulse Resp BP Pulse Ox 98.1 F 110 H 27 H 136/93 H 96 08/04/18 04:00 08/04/18 07:00 08/04/18 07:00 08/04/18 07:00 08/04/18 07:00 Oxygen Flow Rate (L/min) 4 Oxygen Delivery Method Nasal Cannula Weight: 242 lb 11.663 oz Body Mass Index (BMI) 38.6 Finger Stick Blood Glucose 200 Intake and Output for Last 24 Hours 08/02/18 08/03/18 08/04/18 23:59 23:59 23:59 Intake Total 2188.4 / 2188.4 1531.2 / 1531.2 1158 / 1158 Output Total 2099 / 2099 1450 / 1450 355 / 355 Balance 88.4 / 88.4 81.2 / 81.2 803 / 803 Laboratory Tests Past 24 Hrs 08/04/18 08/04/18 06:20 06:20 APTT 64.2 H Sodium 146 H Potassium 3.7 Chloride 109 H Carbon Dioxide 30.0 Anion Gap 7 BUN 42 H Creatinine 1.16 Estim Creat Clear Calc 61.42 Est GFR (MDRD) Af Amer 81 Est GFR (MDRD) Non-Af 67 BUN/Creatinine Ratio 36.2 H Glucose 247 H Calcium 8.0 L Magnesium 2.2 POC Glucose 08/04/18 08/04/18 08/03/18 06:25 00:19 17:13 POC Glucose 249 H 268 H 291 H 08/03/18 12:16 POC Glucose 263 H Medical Necessity - Tobacco Use Smoking Status: Former smoker Tobacco Use: Non-smoker Assessment/Plan All Active Problems (Last Reviewed 07/20/18 @ 21:39 by Joaquín Laughlin DO) Acute bronchitis (Acute) Influenza A (Acute) Constipation (Acute) PAUL (acute kidney injury) (Acute) Atrial flutter (Acute) Paroxysmal atrial fibrillation (Acute) Hyperlipidemia (Acute) Impressions 1. Severe sepsis secondary to influenza A with community-acquired pneumonia and acute respiratory failure with hypoxemia and ARDS 2. Acute respiratory failure with hypoxemia 3. Influenza A 4. Severe community-acquired pneumonia 5. Known history of pulmonary nodules 6. Obstructive sleep apnea-noncompliant with nocturnal noninvasive positive pressure ventilation 7. Rheumatoid arthritis-on methotrexate 8. Atrial fibrillation-status post ablation 9. Coronary artery disease with history of PCI 10. History of tobacco dependence in remission 11. Acute renal failure-improving 12. Diabetes mellitus type 2, uncontrolled-hemoglobin A1c 9.3 13. Metabolic alkalosis-suspect secondary to diuretics/volume contraction 14. Severe malnutrition 15. ARDS Transfer to PCU Restart methotrexate 17.5 mg weekly Discontinue heparin and start Eliquis 5 mg p.o. twice daily Plan modified barium swallow for Tuesday when he is more alert Continue PT/OT Recheck lab in the a.m. Increase Lantus and continue high-dose sliding insulin scale Continue BiPAP anytime he is sleeping Supplement potassium as needed to maintain the potassium at approximately 4 Supplement magnesium as needed to maintain the magnesium level around 2 Plan on [place] [employer] at discharge Increase activity as tolerated Code Visit Inpatient E&M: 00476 Subs Hosp L3
[2018-08-04] MEDS: Potassium Chloride 10 MEQ in Dext 5%-0.45% NS 1,000 ML 80 MEQ IV ×2 (08:30→14:46)
[2018-08-04] MEDS: Folic Acid 1 MG Tablet GT (08:38)
[2018-08-04] MEDS: Aspirin 81 MG TAB.CHEW GT (08:38)
--- NOTE | 2018-08-04 09:18 | PN.RENAL_ITS ---
Patient Problems: Active and Suspected Problems (Last Reviewed 07/20/18 @ 21:39 by Joaquín Laughlin DO) Acute bronchitis (Acute) Influenza A (Acute) Constipation (Acute) CAMELIA (acute kidney injury) (Acute) Atrial flutter (Acute) Subjective: No nausea no vomiting no shortness of breath. No chest pain - Physical Exam General: Oriented x3 HEENT: Atraumatic Oral: Moist Mucosa Neck: Supple, No JVD Lungs: Clear to auscultation, Normal air movement, No rhonchi, No wheeze Cardiovascular: Regular rate, Regular Rhythm, Normal S1, Normal S2 Abdomen: Bowel Sounds Present, Soft, Non Tender, Distended Extremities: No clubbing, No cyanosis, No edema Skin: No rashes Musculoskeletal: No Tenderness to Palpation of Joints or Extremities Lymphatic: No Cervical, Supraclavicular, or Inguinal Adenopathy Neurological: Cranial nerves II-XII grossly intact, Neuro grossly intact Psych/Mental Status: Appropriate Vital Signs Temp Pulse Resp BP Pulse Ox 98.6 F 90 30 H 167/91 H 95 08/04/18 08:00 08/04/18 08:00 08/04/18 08:00 08/04/18 08:00 08/04/18 08:00 Oxygen Flow Rate (L/min) 3 Oxygen Delivery Method Nasal Cannula Weight: 110.1 kg Body Mass Index (BMI) 38.6 Finger Stick Blood Glucose 200 Intake and Output for Last 24 Hours 08/02/18 08/03/18 08/04/18 23:59 23:59 23:59 Intake Total 2188.4 / 2188.4 1531.2 / 1531.2 1308 / 1308 Output Total 2099 / 2099 1450 / 1450 355 / 355 Balance 88.4 / 88.4 81.2 / 81.2 953 / 953 Laboratory Tests Past 24 Hrs 08/04/18 08/04/18 06:20 06:20 APTT 64.2 H Sodium 146 H Potassium 3.7 Chloride 109 H Carbon Dioxide 30.0 Anion Gap 7 BUN 42 H Creatinine 1.16 Estim Creat Clear Calc 61.42 Est GFR (MDRD) Af Amer 81 Est GFR (MDRD) Non-Af 67 BUN/Creatinine Ratio 36.2 H Glucose 247 H Calcium 8.0 L Magnesium 2.2 POC Glucose 08/04/18 08/04/18 08/03/18 06:25 00:19 17:13 POC Glucose 249 H 268 H 291 H 08/03/18 12:16 POC Glucose 263 H Medical Necessity - Tobacco Use Smoking Status: Former smoker Tobacco Use: Non-smoker Assessment/Plan All Active Problems (Last Reviewed 07/20/18 @ 21:39 by Joaquín Laughlin DO) Acute bronchitis (Acute) Influenza A (Acute) Constipation (Acute) CAMELIA (acute kidney injury) (Acute) Atrial flutter (Acute) Paroxysmal atrial fibrillation (Acute) Hyperlipidemia (Acute) 1. Acute kidney onjury. Normal baseline renal function. 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 Creatinine continues to improve. Last creatinine trend 1.4->1.1 milligrams a deciliter. No need for dialysis. Qiu catheter can be removed . avoid nephrotoxins (NSAID or IV contrast).Keep MAP>65 Will continue to monitor panel 2- Hypernatremia : Sodium 146 . Encouraged liquid intake 3- Acute hypoxic respiratory failure due to Influenza, CAP/ARDS. Patient was extubated. Cannula Antibiotic treatment as per the ICU team 4- Aflutter. now sinus. Cardiology service is following Renal team will continue to follow. Please call with any question or concern Isaura Weldon MD [phone]
--- NOTE | 2018-08-04 09:54 | CASEMGMT ---
RN MIRLANDE Note: participated in interdisciplinary rounds. On 4L NC. Pt more awake, in room and able to participate. Plan is to transfer from ICU today. RN MIRLANDE requested to speak with patient regarding SNF placement. Explained recommendation for SNF on discharge for medical monitoring and PT/OT with anticipation pt will then return home. Pt and are both agreeable to [facility] referral. NASIR Sharp. Rica QUIROZN RN ACM
[2018-08-04] MEDS: Amiodarone 200 MG Tablet PO ×2 (10:23→22:16)
[2018-08-04] MEDS: Metoprolol(XL)Succ 50 MG Tablet PO (10:23)
--- NOTE | 2018-08-04 10:38 | CASEMGMT ---
NASIR spoke w/physician this morning, pt will be here through the weekend. Pt will need bipapp at the custodial when he goes. NASIR called [facility] and let Sabina know that pt will be here through the weekend, and will need bipapp when he does get admitted. Updates including bipap settings faxed. NIKOLE Matias, ABORIGINAL LIAISON OFFICER
[2018-08-04] MEDS: APIXABAN 5 MG TABLET PO (11:26)
[2018-08-04] MEDS: Methotrexate 2.5 MG Tablet 17.5 MG PO (11:26)
[2018-08-04] MEDS: Pantoprazole Sodium 40 MG Tablet PO (11:27)
[2018-08-04] MEDS: 0.9% NaCl Peripheral Flush Adult/Peds IV ×2 (11:28→14:45)
[2018-08-04 11:35] LABS: Bedside Glucose 301 mg/dL (70-110)
--- NOTE | 2018-08-04 14:38 | PN.CARD_ITS ---
Subjectve: Patient seen and evaluated. Objective: Vital Signs Temp Pulse Resp BP Pulse Ox 97.4 F L 84 18 159/79 H 93 08/04/18 12:55 08/04/18 12:55 08/04/18 12:55 08/04/18 12:55 08/04/18 12:55 Oxygen Flow Rate (L/min) 3 Oxygen Delivery Method Nasal Cannula Weight: 242 lb 11.663 oz Body Mass Index (BMI) 38.6 Finger Stick Blood Glucose 200 Intake and Output for Last 24 Hours 08/02/18 08/03/18 08/04/18 23:59 23:59 23:59 Intake Total 2188.4 / 2188.4 1531.2 / 1531.2 2418 / 2418 Output Total 2100 / 2100 1450 / 1450 405 / 405 Balance 88.4 / 88.4 81.2 / 81.2 2012 General: Awake, Alert, Oriented x 3 HEENT: PERRL, EOMI, Sclera Non Icteric Neck: Supple, Good ROM, No Lymph Node Enlargement Lungs: Clear to auscultation Cardiovascular: Irregular Rhythm, Normal S1, Normal S2, No Murmurs, No Rubs, No Gallops Vascular: No Carotid Bruits, Normal Femoral Pulses, Normal Radial Pulses, Normal Dorsalis Pedal Pulse, Normal Posterior Tibial Pulses Abdomen: Bowel Sounds Present, Soft, Non Tender, No HSM, No Organomegaly Extremities: No Cyanosis, No Clubbing, No edema Musculoskeletal: No Erythema Skin: No Rashes Neurological: No Focal Motor or Sensory Deficit 08/04/18 06:20: Sodium 146 H, Potassium 3.7, Chloride 109 H, Carbon Dioxide 30.0, Anion Gap 7, BUN 42 H, Creatinine 1.16, Est GFR (MDRD) Af Amer 81, Est GFR (MDRD) Non-Af 67, BUN/Creatinine Ratio 36.2 H, Glucose 247 H, Calcium 8.0 L, Magnesium 2.2 08/04/18 06:20: APTT 64.2 H Rhythm: EKG: ECHO: Stress Test: Cardiac Cath: PCI: CT Surgery: Holter monitor: EPS: PPM: CXR: Chest CT Scan: Medical Necessity - Tobacco Use Smoking Status: Former smoker Tobacco Use: Non-smoker Assessment/Plan 1. Atrial flutter The patient continues in sinus rhythm at this time. His heart rate however appears to have been trending upwards with a concern that he may go into atrial fibrillation. As you know he is status post previous radiofrequency ablation. * Now that he is extubated we can restart the p.o. amiodarone and see how he does. * His atrial fibrillation appears to be paroxysmal and he will be started on Eliquis at this time. 2. CAD status post RCA PTCA/RACHEL He will need to be monitored for any obvious involvement of his coronary artery system. Thus far his troponin I level was negative. He has remained hemodynamically stable. He has not had no acute changes on his ECG. He will continue medical management as tolerated. 3. Hyperlipidemia He will continue lipid-lowering therapy as tolerated. 4. Hypertension His blood pressure appears to be stable to elevated at this time. He will continue medical adjustment as needed. Thank you for allowing me to participate in the care of your patient. Please don't hesitate to call if any issues arise
[2018-08-04] MEDS: Potassium Chloride 10mEq/100mL 10 MEQ/100 ML IV.SOLN. 100 MEQ IV BOLUS ×2 (14:46→16:34)
[2018-08-04 16:55] LABS: Bedside Glucose 334 mg/dL (70-110)
[2018-08-04] MEDS: NYSTATIN 500,000 UNIT/5 ML UDC 500000 UNIT PO (22:15)
[2018-08-04 22:20] LABS: Bedside Glucose 283 mg/dL (70-110)
[2018-08-04] MEDS: Pravastatin 80 MG Tablet PO (22:24)
[2018-08-05] VITALS (23 sets, daily range): BP systolic 129–153; BP diastolic 65–78; PULSE 66–89; RESP 12–27; TEMP 36.6–36.8; O2SAT 92–97
[2018-08-05] MEDS: Ipratropium 0.5 MG/2.5 ML SOLUTION INHALATION ×6 (00:04→19:31)
[2018-08-05] MEDS: Potassium Chloride 10 MEQ in Dext 5%-0.45% NS 1,000 ML 80 MEQ IV (04:04)
[2018-08-05 06:30] LABS: Absolute Lymphocyte Count 0.94 X10^3/ul (0.83-4.51); Absolute Neutrophil Count 10.1 X10^3/uL (2.0-7.7); Basophil# 0.01 X10^3/uL; Basophil% 0.1 % (0-1); Eosinophil# 0.12 X10^3/uL; Hematocrit 37.8 % (40-54); Hemoglobin 12.1 g/dl (13.0-16.5); Lymphocyte # 0.94 X10^3/ul (4.0); Lymphocyte % 7.9 % (19-41); Mean Corpuscular Hgb 31.3 pg (27.0-32.0); Mean Corpuscular Volume 97.9 fL (80-94); Mean Platelet Vol. 11.8 fl (6.2-12.0); Monocyte# 0.75 X10^3/uL; Monocyte% 6.3 % (0-10); Neutrophil # 10.11 X10^3/uL (2.7-7.7); Neutrophil % 84.4 % (47-70); Platelet Count 200 K/mm3 (150-450); RBC Distribution Width CV 13.8 % (11.6-14.6); RBC Distribution Width SD 48.2 fl (35.1-43.9); Red Blood Count 3.86 M/mm3 (4.6-6.2)
[2018-08-05 06:32] LABS: POSITIVE COUNT NO; POSITIVE DIFFERENTIAL NO; POSITIVE MORPHOLOGY NO
[2018-08-05 06:38] LABS: ALB/GLOB Ratio 0.6 RATIO (0.9-2.4); AST(SGOT) 112 U/L (15-37); Alanine Aminotransfer ALT/SGPT 62 U/L (16-61); Albumin, Serum 2.3 g/dL (3.2-5.0); Alkaline Phosphatase 50 U/L (45-117); Anion Gap 6 (5-15); BUN 38 mg/dL (7-18); BUN/Creat Ratio 35.2 RATIO (10-20); Calcium,Total 8.1 mg/dL (8.5-10.1); Chloride 110 mmol/L (98-107); Creatinine, Serum 1.08 mg/dL (0.70-1.30); EST Glomerular Filtration Rate 73 mL/min (>60); Est Glom Filt Rate - Afr Amer 88 mL/min (>60); Estimated Creatinine Clearance 65.97 ml/min; Globulin 3.9 g/dL (2.2-4.2); Glucose 269 mg/dL (74-106); Phosphorus 3.1 mg/dL (2.5-4.9); Potassium 3.4 mmol/L (3.5-5.1); Protein, Total 6.2 g/dL (6.4-8.2); Sodium Level 144 mmol/L (136-145)
[2018-08-05 06:55] LABS: Bedside Glucose 253 mg/dL (70-110)
--- NOTE | 2018-08-05 06:59 | PCM.PROGNOTE ---
Patient Problems: Active and Suspected Problems (Last Reviewed 07/20/18 @ 21:39 by Joaquín Laughlin DO) Acute bronchitis (Acute) Influenza A (Acute) Constipation (Acute) PAUL (acute kidney injury) (Acute) Atrial flutter (Acute) Subjective: The patient was seen and examined at the bedside this morning. Events from the last 24 hours have been reviewed. The patient is currently afebrile, hemodynamically stable and maintaining appropriate oxygen saturations on [1]. The patient has been tolerant of nightly BiPAP therapy. Potassium is again low this morning at 3.4. The patient is currently documented to be overall net +8.2 L for the admission. The patient remains very weak but has been working with physical therapy. Objective: The patient's most recent lab work, culture data and imaging studies have all been personally reviewed. Chest imaging studies have all revealed significant multifocal bilateral infiltrates. Surface echocardiogram revealed mild concentric LVH with an ejection fraction of 55% and stage II diastolic dysfunction. Pulmonary artery systolic pressure was estimated to be 26 mmHg. The patient's rapid influenza screen was positive for influenza A. The remainder of his infectious workup, including sputum cultures have been unrevealing to date. - Physical Exam General: Alert, Cooperative, No apparent distress HEENT: Atraumatic, PERRLA, Normocephalic Oral: No Gingival or Mucosal Lesions/ Ulcerations Neck: Supple, No Nodes, Trachea Midline Lungs: No rhonchi, No wheeze, No rales, Diminished, - - Poor inspiratory effort Cardiovascular: Regular rate, Regular Rhythm, Normal S1, Normal S2 Abdomen: Bowel Sounds Present, Soft, Non Tender, Obese Extremities: No clubbing, No cyanosis, No edema Skin: No breakdown Musculoskeletal: No Muscle Wasting Lymphatic: No Cervical, Supraclavicular, or Inguinal Adenopathy Neurological: Cranial nerves II-XII grossly intact, Neuro grossly intact Psych/Mental Status: Flat Affect Vital Signs Temp Pulse Resp BP Pulse Ox 36.6 C 66 22 H 129/70 H 95 08/05/18 04:06 08/05/18 05:31 08/05/18 05:31 08/05/18 04:06 08/05/18 05:31 Oxygen Flow Rate (L/min) 3 Oxygen Delivery Method Bi-pap Weight: 241 lb 6.499 oz Body Mass Index (BMI) 38.6 Finger Stick Blood Glucose 200 Intake and Output for Last 24 Hours 08/03/18 08/04/18 08/05/18 23:59 23:59 23:59 Intake Total 1531.2 / 1531.2 2983 / 2983 867 / 867 Output Total 1450 / 1450 2605 / 2605 350 / 350 Balance 81.2 / 81.2 378 / 378 517 / 517 Laboratory Tests Past 24 Hrs 08/04/18 08/04/18 08/05/18 06:20 06:20 06:16 WBC 12.0 H RBC 3.86 L Hgb 12.1 L Hct 37.8 L MCV 97.9 H MCH 31.3 MCHC 32.0 RDW 13.8 RDW Differential 48.2 H Plt Count 200 MPV 11.8 Immature Gran % (Auto) 0.300 Neut % (Auto) 84.4 H Lymph % (Auto) 7.9 L Door % (Auto) 6.3 Eos % (Auto) 1.0 Baso % (Auto) 0.1 Absolute Neuts (auto) 10.1 H Absolute Lymphs (auto) 0.94 Total Counted Not Reportable APTT 64.2 H Sodium 146 H Potassium 3.7 Chloride 109 H Carbon Dioxide 30.0 Anion Gap 7 BUN 42 H Creatinine 1.16 Estim Creat Clear Calc 61.42 Est GFR (MDRD) Af Amer 81 Est GFR (MDRD) Non-Af 67 BUN/Creatinine Ratio 36.2 H Glucose 247 H Calcium 8.0 L Phosphorus Magnesium 2.2 Total Bilirubin AST ALT Alkaline Phosphatase Total Protein Albumin Globulin Albumin/Globulin Ratio 08/05/18 06:16 WBC RBC Hgb Hct MCV MCH MCHC RDW RDW Differential Plt Count MPV Immature Gran % (Auto) Neut % (Auto) Lymph % (Auto) Door % (Auto) Eos % (Auto) Baso % (Auto) Absolute Neuts (auto) Absolute Lymphs (auto) Total Counted APTT Sodium 144 Potassium 3.4 L Chloride 110 H Carbon Dioxide 28.0 Anion Gap 6 BUN 38 H Creatinine 1.08 Estim Creat Clear Calc 65.97 Est GFR (MDRD) Af Amer 88 Est GFR (MDRD) Non-Af 73 BUN/Creatinine Ratio 35.2 H Glucose 269 H Calcium 8.1 L Phosphorus 3.1 Magnesium 2.0 Total Bilirubin 0.80 AST 112 H ALT 62 H Alkaline Phosphatase 50 Total Protein 6.2 L Albumin 2.3 L Globulin 3.9 Albumin/Globulin Ratio 0.6 L POC Glucose 08/05/18 08/04/18 08/04/18 06:45 22:11 16:51 POC Glucose 253 H 283 H 334 H 08/04/18 08/04/18 11:24 06:25 POC Glucose 301 H 249 H Clinical Impression(s) from Imaging Studies KUB X-Ray 07/20/18 18:41 IMPRESSION: No evidence of obstruction or perforation. at 2003 Reported and signed by: Salinas Noriega MD Electronically Signed: Salinas Noriega, at 20:02 EST Tel , Service support , Chest X-Ray 07/20/18 19:30 IMPRESSION: No radiographic evidence of acute cardiopulmonary disease. at 2003 Reported and signed by: Salinas Noriega MD Electronically Signed: Salinas Noriega, at 20:02 EST Tel , Service support , Abdomen X-Ray 07/21/18 11:07 IMPRESSION: Diffuse distention of bowel most likely ileus. Distal colonic obstruction not likely but possible. at 0143 Reported and signed by: Salinas Noriega MD Electronically Signed: Salinas Noriega, at 1:42 EST Tel , Service support , Chest X-Ray 07/22/18 09:37 IMPRESSION: Findings concerning for multifocal pneumonia in the appropriate clinical setting with underlying alveolar edema not completely excluded. Recommend follow-up imaging in 4-6 weeks after appropriate treatment. Electronically Signed: Pacheco Galo DO at 9:56 EST , Service support , Chest CTA 07/22/18 17:51 IMPRESSION: No pulmonary embolus. Multifocal bilateral airspace disease in the lungs similar to the most recent chest radiograph but increased compared to 07/20/18 compatible with multifocal pneumonia versus a noninfectious inflammatory pneumonitis. Small, 4.0 cm, ascending thoracic aortic aneurysm with no hemorrhage or dissection. Individualized dose optimization techniques were used for this CT. at 1927 Reported and signed by: Salinas Noriega MD Electronically Signed: Salinas Noriega, at 19:26 EST Tel , Service support , Chest X-Ray 07/24/18 08:42 IMPRESSION: Progressive bilateral airspace disease. The tip of the endotracheal tube is at 4.1 cm proximal to the sunshine. The tip of the orogastric tube is in the body of the stomach. Electronically Signed: Shar Castillo, at 14:18 EST , Service support , Chest X-Ray 07/25/18 08:20 IMPRESSION: Since prior study, there has been improved aeration of both lungs although residual bilateral airspace disease is seen. Electronically Signed: Shar Castillo, at 9:08 EST , Service support , Chest X-Ray 07/28/18 06:29 IMPRESSION: Since prior study, there has been mild improvement of the aeration of both lungs. Residual bilateral patchy infiltrates are seen. Electronically Signed: Shar Castillo, at 8:22 EST , Service support , KUB X-Ray 07/29/18 05:55 IMPRESSION: Nasogastric tube with its tip in the region of the stomach. Nonspecific gas pattern. Electronically Signed: Emmett Anaya MD at 8:37 EST Tel , Service support , Chest X-Ray 08/01/18 06:46 IMPRESSION: Low-lying ET tube as above. Remainder is unchanged Electronically Signed: Miguel Russell DO at 9:01 EDT Tel , Service support , Medical Necessity - Tobacco Use Smoking Status: Former smoker Tobacco Use: Non-smoker Assessment/Plan All Active Problems (Last Reviewed 07/20/18 @ 21:39 by Joaquín Laughlin DO) Acute bronchitis (Acute) Influenza A (Acute) Constipation (Acute) PAUL (acute kidney injury) (Acute) Atrial flutter (Acute) Paroxysmal atrial fibrillation (Acute) Hyperlipidemia (Acute) RECOMMENDATIONS: 1. Wean supplemental oxygen to maintain saturations at or above 90%. Encourage incentive spirometer use. 2. Continue nocturnal BiPAP therapy. 3. Continue bronchodilators. 4. Continue rate/rhythm control strategy per cardiology. Continue Eliquis. 5. Will discontinue IV steroids and transition to prednisone 20 mg daily. 6. Recommend that prednisone be tapered as follows: 20 mg daily times 3 days, followed by 10 mg daily times 3 days. 7. Anticipate prolonged recovery, given the severity of the patient's illness. Continue aggressive physical therapy. 8. Perform ambulatory oximetry prior to consideration for discharge from the hospital. 9. The patient should follow-up in the pulmonary medicine clinic within 2 weeks of his discharge. IMPRESSIONS: 1. Acute hypoxemic respiratory failure secondary to influenza A infection and severe community-acquired pneumonia/evolving ARDS The patient was admitted to the hospital with a presumptive history of COPD of unknown severity. He was seen in the pulmonary medicine clinic 1 year ago, at which time, pulmonary function studies were ordered. However, the patient never followed up. Although the patient was admitted to the hospital with influenza A and a plain film chest x-ray which was largely unremarkable, follow-up chest imaging subsequently revealed evidence of evolving multifocal pneumonia. The patient's respiratory status subsequently declined, eventually requiring transfer to the ICU where he was intubated on July 24. The patient went on to develop full-blown ARDS. The patient was maintained on a lung protective ventilator strategy with broad-spectrum antibiotics and Tamiflu. He improved clinically and was able to be successfully extubated on August 03. He has done well from a respiratory perspective following extubation. We will plan to continue to wean supplemental oxygen to maintain saturations at or above 90%. Encourage incentive spirometer use and mobilize patient as tolerated. The patient's IV steroids can be transitioned to prednisone today. 2. New onset atrial flutter with rapid ventricular rate The patient did require bedside cardioversion on July 26. We will plan to continue medical management per cardiology recommendations. 3. Known history of pulmonary nodules The patient is actually past due for a repeat CT chest due to his previously identified pulmonary nodules in March 2017. Further longitudinal studies can be completed on an outpatient basis. 4. Obstructive sleep apnea The patient has been noncompliant with the use of nocturnal noninvasive positive pressure ventilation in the past. While admitted to the hospital, would plan to continue empiric BiPAP utilization with a pressure support of 12/6 centimeters of water with naps and nightly. 5. Rheumatoid arthritis/atrial fibrillation status post ablation/coronary artery disease/tobacco dependency currently in remission Complicates care, management, recovery and prognosis. Continue home medications as indicated. Continue basal and sliding scale insulin regimen. Physical therapy to work with patient. This note was generated with Peer[employer] dictation software. It may contain incorrect words, spelling, and punctuation that were not noted in checking the note before signing. DISPOSITION: Given the patient's lack of ongoing ICU needs, will sign off. Please ensure that the patient follows up in the pulmonary medicine clinic within 2 weeks of his discharge from the hospital. Please call with any additional questions. Code Visit Inpatient E&M: 56469 Subs Hosp L2
--- NOTE | 2018-08-05 07:06 | PN_ITS ---
Patient Problems: Active and Suspected Problems (Last Reviewed 07/20/18 @ 21:39 by Joaquín Laughlin DO) Acute bronchitis (Acute) Influenza A (Acute) Constipation (Acute) PAUL (acute kidney injury) (Acute) Atrial flutter (Acute) Subjective: The patient was seen and examined at the bedside this morning. Events from the last 24 hours have been reviewed. The patient is currently afebrile, hemodynamically stable and maintaining appropriate oxygen saturations on [1]. The patient has been tolerant of nightly BiPAP therapy. Potassium is again low this morning at 3.4. The patient is currently documented to be overall net +8.2 L for the admission. The patient remains very weak but has been working with physical therapy. Objective: The patient's most recent lab work, culture data and imaging studies have all been personally reviewed. Chest imaging studies have all revealed significant multifocal bilateral infiltrates. Surface echocardiogram revealed mild concentric LVH with an ejection fraction of 55% and stage II diastolic dysfunction. Pulmonary artery systolic pressure was estimated to be 26 mmHg. The patient's rapid influenza screen was positive for influenza A. The remainder of his infectious workup, including sputum cultures have been unrevealing to date. - Physical Exam General: Alert, Cooperative, No apparent distress HEENT: Atraumatic, PERRLA, Normocephalic Oral: No Gingival or Mucosal Lesions/ Ulcerations Neck: Supple, No Nodes, Trachea Midline Lungs: No rhonchi, No wheeze, No rales, Diminished, - - Poor inspiratory effort Cardiovascular: Regular rate, Regular Rhythm, Normal S1, Normal S2 Abdomen: Bowel Sounds Present, Soft, Non Tender, Obese Extremities: No clubbing, No cyanosis, No edema Skin: No breakdown Musculoskeletal: No Muscle Wasting Lymphatic: No Cervical, Supraclavicular, or Inguinal Adenopathy Neurological: Cranial nerves II-XII grossly intact, Neuro grossly intact Psych/Mental Status: Flat Affect Vital Signs Temp Pulse Resp BP Pulse Ox 36.6 C 66 22 H 129/70 H 95 08/05/18 04:06 08/05/18 05:31 08/05/18 05:31 08/05/18 04:06 08/05/18 05:31 Oxygen Flow Rate (L/min) 3 Oxygen Delivery Method Bi-pap Weight: 241 lb 6.499 oz Body Mass Index (BMI) 38.6 Finger Stick Blood Glucose 200 Intake and Output for Last 24 Hours 08/03/18 08/04/18 08/05/18 23:59 23:59 23:59 Intake Total 1531.2 / 1531.2 2983 / 2983 867 / 867 Output Total 1450 / 1450 2605 / 2605 350 / 350 Balance 81.2 / 81.2 378 / 378 517 / 517 Laboratory Tests Past 24 Hrs 08/04/18 08/04/18 08/05/18 06:20 06:20 06:16 WBC 12.0 H RBC 3.86 L Hgb 12.1 L Hct 37.8 L MCV 97.9 H MCH 31.3 MCHC 32.0 RDW 13.8 RDW Differential 48.2 H Plt Count 200 MPV 11.8 Immature Gran % (Auto) 0.300 Neut % (Auto) 84.4 H Lymph % (Auto) 7.9 L [place] % (Auto) 6.3 Eos % (Auto) 1.0 Baso % (Auto) 0.1 Absolute Neuts (auto) 10.1 H Absolute Lymphs (auto) 0.94 Total Counted Not Reportable APTT 64.2 H Sodium 146 H Potassium 3.7 Chloride 109 H Carbon Dioxide 30.0 Anion Gap 7 BUN 42 H Creatinine 1.16 Estim Creat Clear Calc 61.42 Est GFR (MDRD) Af Amer 81 Est GFR (MDRD) Non-Af 67 BUN/Creatinine Ratio 36.2 H Glucose 247 H Calcium 8.0 L Phosphorus Magnesium 2.2 Total Bilirubin AST ALT Alkaline Phosphatase Total Protein Albumin Globulin Albumin/Globulin Ratio 08/05/18 06:16 WBC RBC Hgb Hct MCV MCH MCHC RDW RDW Differential Plt Count MPV Immature Gran % (Auto) Neut % (Auto) Lymph % (Auto) [place] % (Auto) Eos % (Auto) Baso % (Auto) Absolute Neuts (auto) Absolute Lymphs (auto) Total Counted APTT Sodium 144 Potassium 3.4 L Chloride 110 H Carbon Dioxide 28.0 Anion Gap 6 BUN 38 H Creatinine 1.08 Estim Creat Clear Calc 65.97 Est GFR (MDRD) Af Amer 88 Est GFR (MDRD) Non-Af 73 BUN/Creatinine Ratio 35.2 H Glucose 269 H Calcium 8.1 L Phosphorus 3.1 Magnesium 2.0 Total Bilirubin 0.80 AST 112 H ALT 62 H Alkaline Phosphatase 50 Total Protein 6.2 L Albumin 2.3 L Globulin 3.9 Albumin/Globulin Ratio 0.6 L POC Glucose 08/05/18 08/04/18 08/04/18 06:45 22:11 16:51 POC Glucose 253 H 283 H 334 H 08/04/18 08/04/18 11:24 06:25 POC Glucose 301 H 249 H Clinical Impression(s) from Imaging Studies KUB X-Ray 07/20/18 18:41 IMPRESSION: No evidence of obstruction or perforation. at 2003 Reported and signed by: Salinas Noriega MD Electronically Signed: Salinas Noriega, at 20:02 EST Tel , Service support , Chest X-Ray 07/20/18 19:30 IMPRESSION: No radiographic evidence of acute cardiopulmonary disease. at 2003 Reported and signed by: Salinas Noriega MD Electronically Signed: Salinas Noriega, at 20:02 EST Tel , Service support , Abdomen X-Ray 07/21/18 11:07 IMPRESSION: Diffuse distention of bowel most likely ileus. Distal colonic obstruction not likely but possible. at 0143 Reported and signed by: Salinas Noriega MD Electronically Signed: Salinas Noriega, at 1:42 EST Tel , Service support , Chest X-Ray 07/22/18 09:37 IMPRESSION: Findings concerning for multifocal pneumonia in the appropriate clinical setting with underlying alveolar edema not completely excluded. Recommend follow-up imaging in 4-6 weeks after appropriate treatment. Electronically Signed: Pacheco Galo DO at 9:56 EST , Service support , Chest CTA 07/22/18 17:51 IMPRESSION: No pulmonary embolus. Multifocal bilateral airspace disease in the lungs similar to the most recent chest radiograph but increased compared to 07/20/18 compatible with multifocal pneumonia versus a noninfectious inflammatory pneumonitis. Small, 4.0 cm, ascending thoracic aortic aneurysm with no hemorrhage or dissection. Individualized dose optimization techniques were used for this CT. at 1927 Reported and signed by: Salinas Noriega MD Electronically Signed: Salinas Noriega, at 19:26 EST Tel , Service support , Chest X-Ray 07/24/18 08:42 IMPRESSION: Progressive bilateral airspace disease. The tip of the endotracheal tube is at 4.1 cm proximal to the sunshine. The tip of the orogastric tube is in the body of the stomach. Electronically Signed: Shar Castillo, at 14:18 EST , Service support , Chest X-Ray 07/25/18 08:20 IMPRESSION: Since prior study, there has been improved aeration of both lungs although residual bilateral airspace disease is seen. Electronically Signed: Shar Castillo, at 9:08 EST , Service support , Chest X-Ray 07/28/18 06:29 IMPRESSION: Since prior study, there has been mild improvement of the aeration of both lungs. Residual bilateral patchy infiltrates are seen. Electronically Signed: Shar Castillo, at 8:22 EST , Service support , KUB X-Ray 07/29/18 05:55 IMPRESSION: Nasogastric tube with its tip in the region of the stomach. Nonspecific gas pattern. Electronically Signed: Emmett Anaya MD at 8:37 EST Tel , Service support , Chest X-Ray 08/01/18 06:46 IMPRESSION: Low-lying ET tube as above. Remainder is unchanged Electronically Signed: Miguel Russell DO at 9:01 EDT Tel , Service support , Medical Necessity - Tobacco Use Smoking Status: Former smoker Tobacco Use: Non-smoker Assessment/Plan All Active Problems (Last Reviewed 07/20/18 @ 21:39 by Joaquín Laughlin DO) Acute bronchitis (Acute) Influenza A (Acute) Constipation (Acute) PAUL (acute kidney injury) (Acute) Atrial flutter (Acute) Paroxysmal atrial fibrillation (Acute) Hyperlipidemia (Acute) RECOMMENDATIONS: 1. Wean supplemental oxygen to maintain saturations at or above 90%. Encourage incentive spirometer use. 2. Continue nocturnal BiPAP therapy. 3. Continue bronchodilators. 4. Continue rate/rhythm control strategy per cardiology. Continue Eliquis. 5. Will discontinue IV steroids and transition to prednisone 20 mg daily. 6. Recommend that prednisone be tapered as follows: 20 mg daily times 3 days, followed by 10 mg daily times 3 days. 7. Anticipate prolonged recovery, given the severity of the patient's illness. Continue aggressive physical therapy. 8. Perform ambulatory oximetry prior to consideration for discharge from the hospital. 9. The patient should follow-up in the pulmonary medicine clinic within 2 weeks of his discharge. IMPRESSIONS: 1. Acute hypoxemic respiratory failure secondary to influenza A infection and severe community-acquired pneumonia/evolving ARDS The patient was admitted to the hospital with a presumptive history of COPD of unknown severity. He was seen in the pulmonary medicine clinic 1 year ago, at which time, pulmonary function studies were ordered. However, the patient never followed up. Although the patient was admitted to the hospital with influenza A and a plain film chest x-ray which was largely unremarkable, follow-up chest imaging subsequently revealed evidence of evolving multifocal pneumonia. The patient's respiratory status subsequently declined, eventually requiring tra nsfer to the ICU where he was intubated on July 24. The patient went on to develop full-blown ARDS. The patient was maintained on a lung protective ventilator strategy with broad-spectrum antibiotics and Tamiflu. He improved clinically and was able to be successfully extubated on August 03. He has done well from a respiratory perspective following extubation. We will plan to continue to wean supplemental oxygen to maintain saturations at or above 90%. Encourage incentive spirometer use and mobilize patient as tolerated. The patient's IV steroids can be transitioned to prednisone today. 2. New onset atrial flutter with rapid ventricular rate The patient did require bedside cardioversion on July 26. We will plan to continue medical management per cardiology recommendations. 3. Known history of pulmonary nodules The patient is actually past due for a repeat CT chest due to his previously identified pulmonary nodules in March 2017. Further longitudinal studies can be completed on an outpatient basis. 4. Obstructive sleep apnea The patient has been noncompliant with the use of nocturnal noninvasive positive pressure ventilation in the past. While admitted to the hospital, would plan to continue empiric BiPAP utilization with a pressure support of 12/6 centimeters of water with naps and nightly. 5. Rheumatoid arthritis/atrial fibrillation status post ablation/coronary artery disease/tobacco dependency currently in remission Complicates care, management, recovery and prognosis. Continue home medications as indicated. Continue basal and sliding scale insulin regimen. Physical therapy to work with patient. This note was generated with [employer] dictation software. It may contain incorrect words, spelling, and punctuation that were not noted in checking the note before signing. DISPOSITION: Given the patient's lack of ongoing ICU needs, will sign off. Please ensure that the patient follows up in the pulmonary medicine clinic within 2 weeks of his discharge from the hospital. Please call with any additional questions. Code Visit Inpatient E&M: 84737 Subs Hosp L2
[2018-08-05] MEDS: Aspirin 81 MG TAB.CHEW GT (08:00)
[2018-08-05] MEDS: Folic Acid 1 MG Tablet GT (08:00)
[2018-08-05] MEDS: predniSONE 20 MG Tablet PO (08:02)
[2018-08-05] MEDS: Potassium Chloride 10mEq/100mL 10 MEQ/100 ML IV.SOLN. 100 MEQ IV BOLUS ×4 (08:13→11:59)
--- NOTE | 2018-08-05 09:30 | PCM.PN.REN ---
Patient Problems: Active and Suspected Problems (Last Reviewed 07/20/18 @ 21:39 by Joaquín Laughlin DO) Acute bronchitis (Acute) Influenza A (Acute) Constipation (Acute) CAMELIA (acute kidney injury) (Acute) Atrial flutter (Acute) Subjective: No acute events. No SOB. No CP No nausea No vomiting - Physical Exam General: Alert, Oriented x3 HEENT: Atraumatic Oral: Moist Mucosa Neck: Supple, No JVD, Negative Carotid Bruits Lungs: Clear to auscultation, Normal air movement, No rhonchi, No wheeze Cardiovascular: Regular rate, Regular Rhythm, Normal S1, Normal S2 Abdomen: Bowel Sounds Present, Soft, Non Tender Extremities: No clubbing, No cyanosis, No edema Skin: No rashes Musculoskeletal: No Tenderness to Palpation of Joints or Extremities Lymphatic: No Cervical, Supraclavicular, or Inguinal Adenopathy Neurological: Cranial nerves II-XII grossly intact, Neuro grossly intact Psych/Mental Status: Normal Affect Vital Signs Temp Pulse Resp BP Pulse Ox 97.9 F 71 20 H 129/70 H 92 08/05/18 04:06 08/05/18 07:26 08/05/18 07:26 08/05/18 04:06 08/05/18 07:26 Oxygen Flow Rate (L/min) 6 Oxygen Delivery Method Nasal Cannula Weight: 109.5 kg Body Mass Index (BMI) 38.6 Finger Stick Blood Glucose 200 Intake and Output for Last 24 Hours 08/03/18 08/04/18 08/05/18 23:59 23:59 23:59 Intake Total 1531.2 / 1531.2 2983 / 2983 867 / 867 Output Total 1450 / 1450 2605 / 2605 350 / 350 Balance 81.2 / 81.2 378 / 378 517 / 517 Laboratory Tests Past 24 Hrs 08/05/18 08/05/18 06:16 06:16 WBC 12.0 H RBC 3.86 L Hgb 12.1 L Hct 37.8 L MCV 97.9 H MCH 31.3 MCHC 32.0 RDW 13.8 RDW Differential 48.2 H Plt Count 200 MPV 11.8 Immature Gran % (Auto) 0.300 Neut % (Auto) 84.4 H Lymph % (Auto) 7.9 L [place] % (Auto) 6.3 Eos % (Auto) 1.0 Baso % (Auto) 0.1 Absolute Neuts (auto) 10.1 H Absolute Lymphs (auto) 0.94 Total Counted Not Reportable Sodium 144 Potassium 3.4 L Chloride 110 H Carbon Dioxide 28.0 Anion Gap 6 BUN 38 H Creatinine 1.08 Estim Creat Clear Calc 65.97 Est GFR (MDRD) Af Amer 88 Est GFR (MDRD) Non-Af 73 BUN/Creatinine Ratio 35.2 H Glucose 269 H Calcium 8.1 L Phosphorus 3.1 Magnesium 2.0 Total Bilirubin 0.80 AST 112 H ALT 62 H Alkaline Phosphatase 50 Total Protein 6.2 L Albumin 2.3 L Globulin 3.9 Albumin/Globulin Ratio 0.6 L POC Glucose 08/05/18 08/04/18 08/04/18 06:45 22:11 16:51 POC Glucose 253 H 283 H 334 H 08/04/18 11:24 POC Glucose 301 H Medical Necessity - Tobacco Use Smoking Status: Former smoker Tobacco Use: Non-smoker Assessment/Plan All Active Problems (Last Reviewed 07/20/18 @ 21:39 by Joaquín Laughlin DO) Acute bronchitis (Acute) Influenza A (Acute) Constipation (Acute) CAMELIA (acute kidney injury) (Acute) Atrial flutter (Acute) Paroxysmal atrial fibrillation (Acute) Hyperlipidemia (Acute) 1. Acute kidney onjury. Normal baseline renal function. 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 Creatinine continues to improve. Last creatinine trends 1.4->1.1>1.0 milligrams a deciliter. avoid nephrotoxins (NSAID or IV contrast). Will continue to monitor panel 2- Hypernatremia : resolved. Na is 144 this morning . Encouraged liquid intake 3- Acute hypoxic respiratory failure due to Influenza, CAP/ARDS. Patient was extubated. On NC Antibiotic treatment as per the primary service 4- Aflutter. now sinus. Cardiology service is following Renal team will continue to follow. Please call with any question or concern Isaura Weldon MD [phone]
[2018-08-05] MEDS: Pantoprazole Sodium 40 MG Tablet PO (09:50)
[2018-08-05] MEDS: NYSTATIN 500,000 UNIT/5 ML UDC 500000 UNIT PO ×3 (09:50→21:46)
[2018-08-05] MEDS: Amiodarone 200 MG Tablet PO ×2 (09:51→21:46)
[2018-08-05] MEDS: Metoprolol(XL)Succ 50 MG Tablet PO (09:51)
[2018-08-05] MEDS: Insulin Lispro 100 UNIT/ML INSULN.PEN SC ×3 (09:51→16:04)
--- NOTE | 2018-08-05 10:57 | PCM.PN.CARD ---
Subjectve: Patient laying in bed, no acute distress. Still unable to move his extremities. Awaiting nebulizer therapy. Patient's at bedside reporting he is doing okay. Pending transfer to long term. Objective: Vital Signs Temp Pulse Resp BP Pulse Ox 97.9 F 80 18 137/74 H 97 08/05/18 09:43 08/05/18 09:51 08/05/18 09:43 08/05/18 09:51 08/05/18 09:43 Oxygen Flow Rate (L/min) 6 Oxygen Delivery Method Nasal Cannula Weight: 241 lb 6.499 oz Body Mass Index (BMI) 38.6 Finger Stick Blood Glucose 200 Intake and Output for Last 24 Hours 08/03/18 08/04/18 08/05/18 23:59 23:59 23:59 Intake Total 1531.2 / 1531.2 2983 / 2983 867 / 867 Output Total 1450 / 1450 2605 / 2605 350 / 350 Balance 81.2 / 81.2 378 / 378 517 / 517 General: Awake, Alert, Oriented x 3 HEENT: PERRL, EOMI, Sclera Non Icteric Neck: Supple, Good ROM, No Lymph Node Enlargement Lungs: Clear to auscultation Cardiovascular: Regular Rhythm, Normal S1, Normal S2, No Murmurs, No Rubs, No Gallops Vascular: No Carotid Bruits, Normal Femoral Pulses, Normal Radial Pulses, Normal Dorsalis Pedal Pulse, Normal Posterior Tibial Pulses Abdomen: Bowel Sounds Present, Soft, Non Tender, No HSM, No Organomegaly Extremities: No Cyanosis, No Clubbing, No edema Neurological: No Focal Motor or Sensory Deficit 08/05/18 06:16: WBC 12.0 H, RBC 3.86 L, Hgb 12.1 L, Hct 37.8 L, MCV 97.9 H, MCH 31.3, MCHC 32.0, RDW 13.8, RDW Differential 48.2 H, Plt Count 200, MPV 11.8, Immature Gran % (Auto) 0.300, Neut % (Auto) 84.4 H, Lymph % (Auto) 7.9 L, [place] % (Auto) 6.3, Eos % (Auto) 1.0, Baso % (Auto) 0.1, Absolute Neuts (auto) 10.1 H, Total Counted Not Reportable 08/05/18 06:16: Sodium 144, Potassium 3.4 L, Chloride 110 H, Carbon Dioxide 28.0, Anion Gap 6, BUN 38 H, Creatinine 1.08, Est GFR (MDRD) Af Amer 88, Est GFR (MDRD) Non-Af 73, BUN/Creatinine Ratio 35.2 H, Glucose 269 H, Calcium 8.1 L, Phosphorus 3.1, Magnesium 2.0, Total Bilirubin 0.80 Rhythm: EKG: ECHO:Interpretation Summary Normal LV size. Mild concentric left ventricular hypertrophy. Left ventricular systolic function is normal. The estimated ejection fraction is 55 %. Stage 2 diastolic dysfunction. Pulmonary artery systolic pressure is 26 mmHg. Contrast injection was performed. Stress Test: Cardiac Cath: PCI: CT Surgery: Holter monitor: EPS: PPM: CXR: Chest CT Scan: Medical Necessity - Tobacco Use Smoking Status: Former smoker Tobacco Use: Non-smoker Assessment/Plan 1. Atrial flutter Telemetry demonstrates atrial fibrillation with rapid ventricular response. His heart rate however appears to have been trending upwards with a concern that he may go into atrial fibrillation. As you know he is status post previous radiofrequency ablation. Now that he is extubated we can restart the p.o. amiodarone 200 mg p.o. twice daily for a total of 7 days, followed by 200 mg p.o. daily and see how he does. Hopefully he will convert to normal sinus rhythm and stay in normal sinus rhythm. His atrial fibrillation appears to be paroxysmal and he will be started on Eliquis at this time. 2. CAD status post RCA PTCA/RACHEL He will need to be monitored for any obvious involvement of his coronary artery system. Thus far his troponin I level was negative. He has remained hemodynamically stable. He has not had no acute changes on his ECG. He will continue medical management with beta-blockers, baby aspirin. 3. Hyperlipidemia He will continue lipid-lowering therapy as tolerated. 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 We will restarted once he has recovered his strength. 4. Hypertension His blood pressure appears to be stable to elevated at this time. He will continue medical adjustment as needed. Thank you for allowing me to participate in the care of your patient. Patient awaiting transfer to a rehab facility for his paralysis and convalescence. Code Visit Inpatient E&M: [id number] Subs Hosp L2
--- NOTE | 2018-08-05 11:01 | PN.CARD_ITS ---
Subjectve: Patient laying in bed, no acute distress. Still unable to move his extremities. Awaiting nebulizer therapy. Patient's at bedside reporting he is doing okay. Pending transfer to detention. Objective: Vital Signs Temp Pulse Resp BP Pulse Ox 97.9 F 80 18 137/74 H 97 08/05/18 09:43 08/05/18 09:51 08/05/18 09:43 08/05/18 09:51 08/05/18 09:43 Oxygen Flow Rate (L/min) 6 Oxygen Delivery Method Nasal Cannula Weight: 241 lb 6.499 oz Body Mass Index (BMI) 38.6 Finger Stick Blood Glucose 200 Intake and Output for Last 24 Hours 08/03/18 08/04/18 08/05/18 23:59 23:59 23:59 Intake Total 1531.2 / 1531.2 2983 / 2983 867 / 867 Output Total 1450 / 1450 2605 / 2605 350 / 350 Balance 81.2 / 81.2 378 / 378 517 / 517 General: Awake, Alert, Oriented x 3 HEENT: PERRL, EOMI, Sclera Non Icteric Neck: Supple, Good ROM, No Lymph Node Enlargement Lungs: Clear to auscultation Cardiovascular: Regular Rhythm, Normal S1, Normal S2, No Murmurs, No Rubs, No Gallops Vascular: No Carotid Bruits, Normal Femoral Pulses, Normal Radial Pulses, Normal Dorsalis Pedal Pulse, Normal Posterior Tibial Pulses Abdomen: Bowel Sounds Present, Soft, Non Tender, No HSM, No Organomegaly Extremities: No Cyanosis, No Clubbing, No edema Neurological: No Focal Motor or Sensory Deficit 08/05/18 06:16: WBC 12.0 H, RBC 3.86 L, Hgb 12.1 L, Hct 37.8 L, MCV 97.9 H, MCH 31.3, MCHC 32.0, RDW 13.8, RDW Differential 48.2 H, Plt Count 200, MPV 11.8, Immature Gran % (Auto) 0.300, Neut % (Auto) 84.4 H, Lymph % (Auto) 7.9 L, [place] % (Auto) 6.3, Eos % (Auto) 1.0, Baso % (Auto) 0.1, Absolute Neuts (auto) 10.1 H, Total Counted Not Reportable 08/05/18 06:16: Sodium 144, Potassium 3.4 L, Chloride 110 H, Carbon Dioxide 28.0, Anion Gap 6, BUN 38 H, Creatinine 1.08, Est GFR (MDRD) Af Amer 88, Est GFR (MDRD) Non-Af 73, BUN/Creatinine Ratio 35.2 H, Glucose 269 H, Calcium 8.1 L, Phosphorus 3.1, Magnesium 2.0, Total Bilirubin 0.80 Rhythm: EKG: ECHO:Interpretation Summary Normal LV size. Mild concentric left ventricular hypertrophy. Left ventricular systolic function is normal. The estimated ejection fraction is 55 %. Stage 2 diastolic dysfunction. Pulmonary artery systolic pressure is 26 mmHg. Contrast injection was performed. Stress Test: Cardiac Cath: PCI: CT Surgery: Holter monitor: EPS: PPM: CXR: Chest CT Scan: Medical Necessity - Tobacco Use Smoking Status: Former smoker Tobacco Use: Non-smoker Assessment/Plan 1. Atrial flutter Telemetry demonstrates atrial fibrillation with rapid ventricular response. His heart rate however appears to have been trending upwards with a concern that he may go into atrial fibrillation. As you know he is status post previous radiofrequency ablation. * Now that he is extubated we can restart the p.o. amiodarone 200 mg p.o. twice daily for a total of 7 days, followed by 200 mg p.o. daily and see how he vargas s. Hopefully he will convert to normal sinus rhythm and stay in normal sinus rhythm. * His atrial fibrillation appears to be paroxysmal and he will be started on Eliquis at this time. 2. CAD status post RCA PTCA/RACHEL He will need to be monitored for any obvious involvement of his coronary artery system. Thus far his troponin I level was negative. He has remained hemodynamically stable. He has not had no acute changes on his ECG. He will continue medical management with beta-blockers, baby aspirin. 3. Hyperlipidemia He will continue lipid-lowering therapy as tolerated. 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 We will restarted once he has recovered his strength. 4. Hypertension His blood pressure appears to be stable to elevated at this time. He will c ontinue medical adjustment as needed. Thank you for allowing me to participate in the care of your patient. Patient awaiting transfer to a rehab facility for his paralysis and convalescence. Code Visit Inpatient E&M: [id number] Subs Hosp L2
[2018-08-05 12:20] LABS: Bedside Glucose 316 mg/dL (70-110)
--- NOTE | 2018-08-05 15:39 | PN_ITS ---
Patient Problems: Active and Suspected Problems (Last Reviewed 07/20/18 @ 21:39 by Joaquín Laughlin DO) Acute bronchitis (Acute) Influenza A (Acute) Constipation (Acute) PAUL (acute kidney injury) (Acute) Atrial flutter (Acute) Subjective: All events of the past 24 hours have been reviewed He is afebrile. Blood pressures are normal today. Fluid balance on 08/04/2018 was +378. Overnight he was +892. Oral intake was 390 on 08/04/2018 and 240 so far today. All lab was personally reviewed. The white blood cell count today is 12 with 84.4% neutrophils. Potassium is decreased at 3.4 today. BUN is 38 with a creatinine of 1.08. The sodium is within normal limits. Potassium is 3.4 today. Phosphorus and magnesium are within normal limits. Transaminases are mildly increased with an AST of 112 and an ALT of 62. Potassium was supplemented by Dr. Ponce. No complaints today other than being thirsty. Denies chest pain, denies shortness of breath, not coughing, denies nausea, no abdominal pain, bowels are moving well. Denies lightheadedness. ELiquis was held last night due to hematuria. He was retaining urine and the petersen had to be reinserted. Urine has a pink tinge today and no gross hematuria - Physical Exam General: Alert - Does not appear to be obtunded at all today and he is appropriate and kidding around., Cooperative, No apparent distress HEENT: Atraumatic, PERRLA Oral: No Gingival or Mucosal Lesions/ Ulcerations, Dry Mucosa Neck: Supple, No JVD Lungs: Clear to auscultation, Diminished Cardiovascular: Regular rate, Regular Rhythm, No rub noted, No Gallop, - - TELEMETRY: Had PAF this AM but potassium ordered and in NSR now. Abdomen: Bowel Sounds Present, Soft, Non Tender, Non-Distended, Obese Extremities: No clubbing, No cyanosis, No edema Skin: No rashes, No breakdown Neurological: Cranial nerves II-XII grossly intact, Neuro grossly intact, - - No focal neurologic deficits Psych/Mental Status: Appropriate Vital Signs Temp Pulse Resp BP Pulse Ox 97.9 F 74 20 H 137/74 H 97 08/05/18 09:43 08/05/18 11:00 08/05/18 10:32 08/05/18 09:51 08/05/18 09:43 Oxygen Flow Rate (L/min) 6 Oxygen Delivery Method Nasal Cannula Weight: 241 lb 6.499 oz Body Mass Index (BMI) 38.6 Finger Stick Blood Glucose 200 Intake and Output for Last 24 Hours 08/03/18 08/04/18 08/05/18 23:59 23:59 23:59 Intake Total 1531.2 / 1531.2 2983 / 2983 1592 / 1592 Output Total 1450 / 1450 2605 / 2605 700 / 700 Balance 81.2 / 81.2 378 / 378 892 / 892 Laboratory Tests Past 24 Hrs 08/05/18 08/05/18 06:16 06:16 WBC 12.0 H RBC 3.86 L Hgb 12.1 L Hct 37.8 L MCV 97.9 H MCH 31.3 MCHC 32.0 RDW 13.8 RDW Differential 48.2 H Plt Count 200 MPV 11.8 Immature Gran % (Auto) 0.300 Neut % (Auto) 84.4 H Lymph % (Auto) 7.9 L [place] % (Auto) 6.3 Eos % (Auto) 1.0 Baso % (Auto) 0.1 Absolute Neuts (auto) 10.1 H Absolute Lymphs (auto) 0.94 Total Counted Not Reportable Sodium 144 Potassium 3.4 L Chloride 110 H Carbon Dioxide 28.0 Anion Gap 6 BUN 38 H Creatinine 1.08 Estim Creat Clear Calc 65.97 Est GFR (MDRD) Af Amer 88 Est GFR (MDRD) Non-Af 73 BUN/Creatinine Ratio 35.2 H Glucose 269 H Calcium 8.1 L Phosphorus 3.1 Magnesium 2.0 Total Bilirubin 0.80 AST 112 H ALT 62 H Alkaline Phosphatase 50 Total Protein 6.2 L Albumin 2.3 L Globulin 3.9 Albumin/Globulin Ratio 0.6 L POC Glucose 08/05/18 08/05/18 08/04/18 12:07 06:45 22:11 POC Glucose 316 H 253 H 283 H 08/04/18 16:51 POC Glucose 334 H Medical Necessity - Tobacco Use Smoking Status: Former smoker Tobacco Use: Non-smoker Assessment/Plan All Active Problems (Last Reviewed 07/20/18 @ 21:39 by Joaquín Laughlin DO) Acute bronchitis (Acute) Influenza A (Acute) Constipation (Acute) PAUL (acute kidney injury) (Acute) Atrial flutter (Acute) Paroxysmal atrial fibrillation (Acute) Hyperlipidemia (Acute) Impressions 1. Severe sepsis secondary to influenza A with community-acquired pneumonia and acute respiratory failure with hypoxemia and ARDS 2. Acute respiratory failure with hypoxemia 3. Influenza A 4. Severe community-acquired pneumonia 5. Known history of pulmonary nodules 6. Obstructive sleep apnea-noncompliant with nocturnal noninvasive positive pressure ventilation 7. Rheumatoid arthritis-on methotrexate 8. Atrial fibrillation-status post ablation 9. Coronary artery disease with history of PCI 10. History of tobacco dependence in remission 11. Acute renal failure-improving 12. Diabetes mellitus type 2, uncontrolled-hemoglobin A1c 9.3 13. Metabolic alkalosis-suspect secondary to diuretics/volume contraction 14. Severe malnutrition 15. ARDS 16. Urine retention Start a daily oral potassium supplement Wean the IV fluids as his intake increases Continue PT/OT MBS on Tuesday Blood sugars are not adequately controlled even with poor intake. Prednisone decreased to 20 mg daily today.....this should help BMP in the AM continue the Lantus 20 units BID, schedule mealtime insulin 8 units with each meal Code Visit Inpatient E&M: 44378 Subs Hosp L2
[2018-08-05 16:11] LABS: Bedside Glucose 295 mg/dL (70-110)
[2018-08-05] MEDS: Tamsulosin HCl 0.4 MG Capsule PO (18:47)
[2018-08-05] MEDS: APIXABAN 5 MG TABLET PO (21:46)
[2018-08-05 22:16] LABS: Bedside Glucose 227 mg/dL (70-110)
[2018-08-06] VITALS (20 sets, daily range): BP systolic 138–154; BP diastolic 67–75; PULSE 72–97; RESP 12–28; TEMP 36.6–37.1; O2SAT 92–100
[2018-08-06] MEDS: Ipratropium 0.5 MG/2.5 ML SOLUTION INHALATION ×4 (06:43→22:55)
[2018-08-06 06:56] LABS: Bedside Glucose 193 mg/dL (70-110)
[2018-08-06 07:57] LABS: Anion Gap 6 (5-15); BUN 37 mg/dL (7-18); BUN/Creat Ratio 31.9 RATIO (10-20); Calcium,Total 8.4 mg/dL (8.5-10.1); Chloride 111 mmol/L (98-107); Creatinine, Serum 1.16 mg/dL (0.70-1.30); EST Glomerular Filtration Rate 67 mL/min (>60); Est Glom Filt Rate - Afr Amer 81 mL/min (>60); Estimated Creatinine Clearance 61.42 ml/min; Glucose 206 mg/dL (74-106); Potassium 3.7 mmol/L (3.5-5.1); Sodium Level 144 mmol/L (136-145)
--- NOTE | 2018-08-06 09:08 | PN.RENAL_ITS ---
Patient Problems: Active and Suspected Problems (Last Reviewed 07/20/18 @ 21:39 by Joaquín Laughlin DO) Acute bronchitis (Acute) Influenza A (Acute) Constipation (Acute) PAUL (acute kidney injury) (Acute) Atrial flutter (Acute) Subjective: Patient is not making sense as per his . No acute distress. His right hand is swollen. No nausea no vomiting. Still on nasal cannula support at 6 l/min - Physical Exam General: No apparent distress HEENT: Atraumatic Oral: Moist Mucosa Neck: Supple, No JVD Lungs: - - On nasal cannula support. No crackles no wheezing Cardiovascular: Regular rate, Regular Rhythm, Normal S1, Normal S2 Abdomen: Bowel Sounds Present, Soft, Non Tender Extremities: Edema - +1 edema of lower extremities Skin: No rashes Musculoskeletal: No Tenderness to Palpation of Joints or Extremities Lymphatic: Cervical Adenopathy Psych/Mental Status: Appropriate Vital Signs Temp Pulse Resp BP Pulse Ox 97.9 F 90 18 139/67 H 92 08/06/18 03:00 08/06/18 06:43 08/06/18 06:43 08/06/18 03:00 08/06/18 06:43 Oxygen Flow Rate (L/min) 6 Oxygen Delivery Method Nasal Cannula Weight: 107.5 kg Body Mass Index (BMI) 38.6 Finger Stick Blood Glucose 200 Intake and Output for Last 24 Hours 08/04/18 08/05/18 08/06/18 23:59 23:59 23:59 Intake Total 2983 / 2983 2192 / 2192 422 / 422 Output Total 2605 / 2605 1100 / 1100 725 / 725 Balance 378 / 378 1092 / 1092 -303 / -303 Laboratory Tests Past 24 Hrs 08/06/18 07:00 Sodium 144 Potassium 3.7 Chloride 111 H Carbon Dioxide 27.0 Anion Gap 6 BUN 37 H Creatinine 1.16 Estim Creat Clear Calc 61.42 Est GFR (MDRD) Af Amer 81 Est GFR (MDRD) Non-Af 67 BUN/Creatinine Ratio 31.9 H Glucose 206 H Calcium 8.4 L POC Glucose 08/06/18 08/05/18 08/05/18 06:35 22:07 15:57 POC Glucose 193 H 227 H 295 H 08/05/18 12:07 POC Glucose 316 H Medical Necessity - Tobacco Use Smoking Status: Former smoker Tobacco Use: Non-smoker Assessment/Plan All Active Problems (Last Reviewed 07/20/18 @ 21:39 by Joaquín Laughlin DO) Acute bronchitis (Acute) Influenza A (Acute) Constipation (Acute) PAUL (acute kidney injury) (Acute) Atrial flutter (Acute) Paroxysmal atrial fibrillation (Acute) Hyperlipidemia (Acute) 1. Acute kidney onjury. Normal baseline renal function. 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 Kidney function improved. Creatinine seems to be around 1.1 mg a deciliter. I will start normal saline at 100 cc/h since the patient is not eating well avoid nephrotoxins (NSAID or IV contrast). Will continue to monitor panel 2- Hypernatremia : resolved. Na is 144 this morning . Encouraged liquid intake 3- Acute hypoxic respiratory failure due to Influenza, CAP/ARDS. Patient was extubated. On NC Antibiotic treatment and oxygen support as per the primary service 4- Aflutter. now sinus. Cardiology service is following Renal team will continue to follow. Please call with any question or concern Isaura Weldon MD [phone]
--- NOTE | 2018-08-06 09:38 | VDUE_ITS ---
Reason For Study: Swelling RUE Right Proximal Right jugular vein is spontaneous, widely patent, phasic, with no intraluminal echogenicity noted. Right subclavian vein is spontaneous, widely patent, phasic, with no intraluminal echogenicity noted. Right Lower Arm Right radial vein is compressible. Right ulnar vein is compressible. Right Arm Right axillary vein is spontaneous, patent, phasic, competent, compressible and demonstrates augmentation. Right brachial vein is compressible. Right cephalic vein is compressible. Right basilic vein is compressible. Interpretation Summary No evidence for acute deep venous thrombosis[right] upper extremity with patent and compressible cephalic and basilic veins. Ordering Physician: Vic Vázquez Referring Physician: Dmitry Harvey Performed By: Charlene Chacon, BRADY, RVT ?
[2018-08-06] MEDS: 0.45% Normal Saline 1,000 ML 75 ML IV (09:41)
--- NOTE | 2018-08-06 09:42 | PN.CARD_ITS ---
Subjectve: Patient doing okay, awaiting swallow study tomorrow. Patient able to move his toes, has some upper extremity movement but unable to bend his elbow. The patient does have significant swelling in his right upper extremity which appears to be worse than yesterday. Left upper extremity appears to be okay. No swelling in his lower extremities. Telemetry shows sinus tachycardia at times, but mostly normal sinus rhythm. Currently on Eliquis. Objective: Vital Signs Temp Pulse Resp BP Pulse Ox 97.9 F 90 18 139/67 H 92 08/06/18 03:00 08/06/18 06:43 08/06/18 06:43 08/06/18 03:00 08/06/18 06:43 Oxygen Flow Rate (L/min) 6 Oxygen Delivery Method Nasal Cannula Weight: 236 lb 15.951 oz Body Mass Index (BMI) 38.6 Finger Stick Blood Glucose 200 Intake and Output for Last 24 Hours 08/04/18 08/05/18 08/06/18 23:59 23:59 23:59 Intake Total 2983 / 2983 2192 / 2192 422 / 422 Output Total 2605 / 2605 1100 / 1100 725 / 725 Balance 378 / 378 1092 / 1092 -303 / -303 General: Awake, Alert, Oriented x 3 HEENT: PERRL, EOMI, Sclera Non Icteric Neck: Supple, Good ROM, No Lymph Node Enlargement Lungs: Clear to auscultation Cardiovascular: Regular Rhythm, Normal S1, Normal S2, No Murmurs, No Rubs, No Gallops Vascular: No Carotid Bruits, Normal Femoral Pulses, Normal Radial Pulses, Normal Dorsalis Pedal Pulse, Normal Posterior Tibial Pulses Abdomen: Bowel Sounds Present, Soft, Non Tender, No HSM, No Organomegaly Extremities: No Cyanosis, No Clubbing Neurological: No Focal Motor or Sensory Deficit 08/06/18 07:00: Sodium 144, Potassium 3.7, Chloride 111 H, Carbon Dioxide 27.0, Anion Gap 6, BUN 37 H, Creatinine 1.16, Est GFR (MDRD) Af Amer 81, Est GFR (MDRD) Non-Af 67, BUN/Creatinine Ratio 31.9 H, Glucose 206 H, Calcium 8.4 L Rhythm: EKG: ECHO: Stress Test: Cardiac Cath: PCI: CT Surgery: Holter monitor: EPS: PPM: CXR: Chest CT Scan: Medical Necessity - Tobacco Use Smoking Status: Former smoker Tobacco Use: Non-smoker Assessment/Plan 1. Atrial flutter Telemetry now shows sinus tachycardia reverting back to normal sinus rhythm. His heart rate however appears to have been trending upwards with a concern that he may go into atrial fibrillation. As you know he is status post previous radiofrequency ablation. * Now that he is extubated we can restart the p.o. amiodarone 200 mg p.o. twice daily for a total of 7 days, followed by 200 mg p.o. daily and see how he does. He appears to have converted to normal sinus rhythm and is feeling much better. Recommend ultrasound of his right upper extremity to document whether he has a DVT which will determine his length of anticoagulation therapy. * His atrial fibrillation appears to be paroxysmal and he has been started on Eliquis at this time. 2. CAD status post RCA PTCA/RACHEL He will need to be monitored for any obvious involvement of his coronary artery system. Thus far his troponin I level was negative. He has remained hemodynamically stable. He has not had no acute changes on his ECG. He will continue medical management with beta-blockers, baby aspirin. Patient may require stress test once he is fully recovered. 3. Hyperlipidemia He will continue lipid-lowering therapy as tolerated. 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 We will restarted once he has recovered his strength. 4. Hypertension His blood pressure appears to be stable to elevated at this time. He will continue medical adjustment as needed. Thank you for allowing me to participate in the care of your patient. Patient awaiting transfer to a rehab facility for his paralysis and convalescence. This will take place after his swallow study to determine if he has any duration.
[2018-08-06] MEDS: Insulin Lispro 100 UNIT/ML INSULN.PEN SC ×3 (09:55→17:13)
[2018-08-06] MEDS: Insulin Lispro 100 UNIT/ML INSULN.PEN 8 UNIT SC ×3 (09:56→17:13)
[2018-08-06] MEDS: Aspirin 81 MG TAB.CHEW GT (09:57)
[2018-08-06] MEDS: Folic Acid 1 MG Tablet GT (09:57)
[2018-08-06] MEDS: predniSONE 20 MG Tablet PO (09:58)
[2018-08-06] MEDS: APIXABAN 5 MG TABLET PO ×2 (09:59→20:55)
[2018-08-06] MEDS: Pantoprazole Sodium 40 MG Tablet PO (09:59)
[2018-08-06] MEDS: NYSTATIN 500,000 UNIT/5 ML UDC 500000 UNIT PO ×4 (09:59→20:56)
[2018-08-06] MEDS: Amiodarone 200 MG Tablet PO ×2 (09:59→20:54)
[2018-08-06] MEDS: Finasteride 5 MG Tablet PO (09:59)
[2018-08-06] MEDS: Metoprolol(XL)Succ 50 MG Tablet PO (10:00)
[2018-08-06 11:46] LABS: Bedside Glucose 205 mg/dL (70-110)
--- NOTE | 2018-08-06 13:15 | PCM.PROGNOTE ---
Patient Problems: Active and Suspected Problems (Last Reviewed 07/20/18 @ 21:39 by Joaquín Laughlin DO) Acute bronchitis (Acute) Influenza A (Acute) Constipation (Acute) PAUL (acute kidney injury) (Acute) Atrial flutter (Acute) Subjective: The patient is a 63-year-old male with a past medical history of tobacco dependence, chronic atrial fibrillation status post ablation, coronary artery disease with history of PCI, hyperlipidemia and hypertension who was admitted to the hospital on 07/20/2018 with PNA presumed secondary to influenza A. He subsequently experienced Acute hypoxic respiratory failure and was transferred to the intensive care unit and intubated. He had a prolonged intubation due to the development of ARDS. He was extubated on 08/03/18 and transferred to PCU on 08/04/18. All events the past 24 hours of been reviewed. He is afebrile. Systolic blood pressure is mildly elevated but overall improved. He is 93% saturated on a 6 L nasal cannula with a respiratory rate of 14-18. Fluid balance on 08/05/2018 was +1092. Fluid balance since admission to the hospital is positive approximately 9000. All lab was personally reviewed. Electrolytes are within normal limits. The BUN is 37 today with a creatinine of 1.16 which is up from 1.08 yesterday. BUN is stable at 37. Blood sugars are coming under better control. Oral intake is improving and he took 760 p.o. today. Modified barium swallow is scheduled for tomorrow. Patient refused PT and OT today but when they showed up to his room he had just come back from the bathroom and he was very tired. He will do his PT/OT tomorrow. He was willing to do PT later in the day but they were no longer here Denies chest pain, shortness of breath, nausea, abdominal pain. Speech is still a little difficult to understand and he mumbles and has non sequiturs.....still seems a bit obtunded Objective: - Physical Exam General: Alert - affect is flat and he s mumbling something about going to [place] to go fishing? then he will answer questions appropriately.....seems a bit obtunded yet. HEENT: Atraumatic, PERRLA Oral: No Gingival or Mucosal Lesions/ Ulcerations, Dry Mucosa Neck: Supple, No JVD Lungs: Clear to auscultation, Diminished Cardiovascular: Regular rate, Regular Rhythm, No rub noted, No Gallop, - - TELEMETRY: Had PAF this AM(1 very short burst) but potassium still only 3.7 so will order more potassium Abdomen: Bowel Sounds Present, Soft, Non Tender, Non-Distended, Obese Extremities: No clubbing, No cyanosis, No edema Skin: No rashes, No breakdown Neurological: Cranial nerves II-XII grossly intact, Neuro grossly intact, - - No focal neurologic deficits Psych/Mental Status: Appropriate at times - Physical Exam Vital Signs Temp Pulse Resp BP Pulse Ox 98.3 F 89 16 149/70 H 97 08/06/18 09:00 08/06/18 11:23 08/06/18 11:23 08/06/18 10:00 08/06/18 11:22 Oxygen Flow Rate (L/min) 6 Oxygen Delivery Method Nasal Cannula Weight: 236 lb 15.951 oz Body Mass Index (BMI) 38.6 Finger Stick Blood Glucose 200 Intake and Output for Last 24 Hours 08/04/18 08/05/18 08/06/18 23:59 23:59 23:59 Intake Total 2983 / 2983 2192 / 2192 1272 / 1272 Output Total 2605 / 2605 1100 / 1100 1075 / 1075 Balance 378 / 378 1092 / 1092 197 / 197 Laboratory Tests Past 24 Hrs 08/06/18 07:00 Sodium 144 Potassium 3.7 Chloride 111 H Carbon Dioxide 27.0 Anion Gap 6 BUN 37 H Creatinine 1.16 Estim Creat Clear Calc 61.42 Est GFR (MDRD) Af Amer 81 Est GFR (MDRD) Non-Af 67 BUN/Creatinine Ratio 31.9 H Glucose 206 H Calcium 8.4 L POC Glucose 08/06/18 08/06/18 08/05/18 11:38 06:35 22:07 POC Glucose 205 H 193 H 227 H 08/05/18 15:57 POC Glucose 295 H Medical Necessity - Tobacco Use Smoking Status: Former smoker Tobacco Use: Non-smoker Assessment/Plan All Active Problems (Last Reviewed 07/20/18 @ 21:39 by Joaquín Laughlin DO) Acute bronchitis (Acute) Influenza A (Acute) Constipation (Acute) PAUL (acute kidney injury) (Acute) Atrial flutter (Acute) Paroxysmal atrial fibrillation (Acute) Hyperlipidemia (Acute) Impressions 1. Severe sepsis secondary to influenza A with community-acquired pneumonia and acute respiratory failure with hypoxemia and ARDS 2. Acute respiratory failure with hypoxemia 3. Influenza A 4. Severe community-acquired pneumonia - no bacteria identified 5. Known history of pulmonary nodules 6. Obstructive sleep apnea-noncompliant with nocturnal noninvasive positive pressure ventilation at home but, has been wearing in the hospital 7. Rheumatoid arthritis-on methotrexate which has been restarted 8. Atrial fibrillation-status post ablation but has had PAF in the hospital 9. Coronary artery disease with history of PCI 10. History of tobacco dependence in remission 11. Acute renal failure-improving. Dr. Weldon is following 12. Diabetes mellitus type 2, uncontrolled-hemoglobin A1c 9.3 13. Metabolic alkalosis-suspect secondary to diuretics/volume contraction 14. Severe malnutrition 15. ARDS 16. Urine retention - started on Proscar and Flomax - DC petersen in 1 week and do a voiding trial MBS in the AM Increase the mealtime insulin now that his intake is increasing. supplement the K to keep it around 4 Continue amiodarone and metoprolol for rate control and rhythm control Wean prednisone over the next 6 days Continue Proscar and Flomax-remove Petersen to do a voiding trial after 7 days on these medications Plan discharge to SNF when stable
[2018-08-06] MEDS: Nystatin Powder 15gm Bottle 1 APPLIC TOPICAL ×2 (13:55→20:57)
[2018-08-06] MEDS: Tamsulosin HCl 0.4 MG Capsule PO (17:13)
[2018-08-06 17:20] LABS: Bedside Glucose 225 mg/dL (70-110)
[2018-08-06 21:15] LABS: Bedside Glucose 168 mg/dL (70-110)
[2018-08-07] VITALS (13 sets, daily range): BP systolic 131–156; BP diastolic 67–78; PULSE 74–84; RESP 16–22; TEMP 36.4–36.9; O2SAT 94–98
[2018-08-07] MEDS: 0.45% Normal Saline 1,000 ML 75 ML IV ×2 (00:15→14:55)
[2018-08-07] MEDS: Nystatin Powder 15gm Bottle 1 APPLIC TOPICAL ×3 (05:31→21:22)
[2018-08-07] MEDS: Ipratropium 0.5 MG/2.5 ML SOLUTION INHALATION ×4 (07:33→23:20)
[2018-08-07 07:36] LABS: Bedside Glucose 144 mg/dL (70-110)
--- NOTE | 2018-08-07 07:58 | PN.CARD_ITS ---
Subjectve: Patient seen and evaluated. Appears to be stable. Objective: Vital Signs Temp Pulse Resp BP Pulse Ox 97.6 F L 76 18 131/78 H 98 08/07/18 03:00 08/07/18 03:10 08/07/18 03:00 08/07/18 03:00 08/07/18 03:00 Oxygen Flow Rate (L/min) 6 Oxygen Delivery Method Nasal Cannula Weight: 240 lb 11.916 oz Body Mass Index (BMI) 38.6 Finger Stick Blood Glucose 200 Intake and Output for Last 24 Hours 08/05/18 08/06/18 08/07/18 23:59 23:59 23:59 Intake Total 2192 / 2192 2669 / 2669 430 / 430 Output Total 1100 / 1100 1825 / 1825 300 / 300 Balance 1092 / 1092 844 / 844 130 / 130 General: Awake, Alert, Oriented x 3 HEENT: PERRL, EOMI, Sclera Non Icteric Neck: Supple, Good ROM, No Lymph Node Enlargement Lungs: Clear to auscultation Cardiovascular: Regular Rhythm, Normal S1, Normal S2, No Murmurs, No Rubs, No Gallops Vascular: No Carotid Bruits, Normal Femoral Pulses, Normal Radial Pulses, Normal Dorsalis Pedal Pulse, Normal Posterior Tibial Pulses Abdomen: Bowel Sounds Present, Soft, Non Tender, No HSM, No Organomegaly Extremities: No Cyanosis, No Clubbing, No edema Neurological: No Focal Motor or Sensory Deficit Psych/Mental Status: Appropriate 08/06/18 07:00: Sodium 144, Potassium 3.7, Chloride 111 H, Carbon Dioxide 27.0, Anion Gap 6, BUN 37 H, Creatinine 1.16, Est GFR (MDRD) Af Amer 81, Est GFR (MDRD ) Non-Af 67, BUN/Creatinine Ratio 31.9 H, Glucose 206 H, Calcium 8.4 L Rhythm: EKG: ECHO: Stress Test: Cardiac Cath: PCI: CT Surgery: Holter monitor: EPS: PPM: CXR: Chest CT Scan: Medical Necessity - Tobacco Use Smoking Status: Former smoker Tobacco Use: Non-smoker Assessment/Plan 1. Atrial flutter The patient continues in sinus rhythm at this time. His heart rate however appears to have been trending upwards with a concern that he may go into atrial fibrillation. As you know he is status post previous radiofrequency ablation. * Now that he is extubated we can continue the p.o. amiodarone and see how he does. * His atrial fibrillation appears to be paroxysmal and he will be started on Eliquis at this time. 2. CAD status post RCA PTCA/RACHEL He will need to be monitored for any obvious involvement of his coronary artery system. Thus far his troponin I level was negative. He has remained hemodynamically stable. He has not had no acute changes on his ECG. He will continue medical management as tolerated. 3. Hyperlipidemia He will continue lipid-lowering therapy as tolerated. 4. Hypertension His blood pressure appears to be stable to elevated at this time. He will continue medical adjustment as needed. Thank you for allowing me to participate in the care of your patient. Please don't hesitate to call if any issues arise
--- NOTE | 2018-08-07 08:41 | CPS ---
pt decreased to 4 lpm....sat 94%. Nurse aware of change
[2018-08-07] MEDS: predniSONE 20 MG Tablet PO (08:47)
[2018-08-07] MEDS: Amiodarone 200 MG Tablet PO ×2 (08:47→21:22)
[2018-08-07] MEDS: Folic Acid 1 MG Tablet GT (08:48)
[2018-08-07] MEDS: Metoprolol(XL)Succ 50 MG Tablet PO (08:48)
[2018-08-07] MEDS: Aspirin 81 MG TAB.CHEW GT (08:48)
[2018-08-07] MEDS: NYSTATIN 500,000 UNIT/5 ML UDC 500000 UNIT PO ×3 (08:49→21:21)
[2018-08-07] MEDS: Pantoprazole Sodium 40 MG Tablet PO (08:49)
[2018-08-07] MEDS: APIXABAN 5 MG TABLET PO ×2 (08:49→21:22)
[2018-08-07] MEDS: Finasteride 5 MG Tablet PO (08:49)
[2018-08-07] MEDS: Insulin Lispro 100 UNIT/ML INSULN.PEN 8 UNIT SC (08:50)
--- NOTE | 2018-08-07 09:58 | PN.RENAL_ITS ---
Patient Problems: Active and Suspected Problems (Last Reviewed 07/20/18 @ 21:39 by Joaquín Laughlin DO) Acute bronchitis (Acute) Influenza A (Acute) Constipation (Acute) PAUL (acute kidney injury) (Acute) Atrial flutter (Acute) Subjective: Patient is doing fine. Awake alert oriented today. Still have Qiu catheter which is draining yellow urine. Oxygen support is down to 3 L/min through nasal [place] - Physical Exam General: Alert, Oriented x3 HEENT: Atraumatic Oral: Moist Mucosa Neck: Supple, No JVD Lungs: Clear to auscultation, Normal air movement, No rhonchi, No wheeze Cardiovascular: Regular rate, Regular Rhythm, Normal S1, Normal S2 Abdomen: Bowel Sounds Present, Soft, Non Tender, Non-Distended Extremities: No clubbing, No cyanosis, No edema Skin: No rashes Musculoskeletal: No Tenderness to Palpation of Joints or Extremities Lymphatic: No Cervical, Supraclavicular, or Inguinal Adenopathy Neurological: Cranial nerves II-XII grossly intact, Neuro grossly intact Psych/Mental Status: Appropriate Vital Signs Temp Pulse Resp BP Pulse Ox 97.7 F L 83 16 140/67 H 96 08/07/18 09:00 08/07/18 09:00 08/07/18 09:00 08/07/18 09:00 08/07/18 09:00 Oxygen Flow Rate (L/min) 3 Oxygen Delivery Method Nasal Cannula Weight: 109.2 kg Body Mass Index (BMI) 38.6 Finger Stick Blood Glucose 200 Intake and Output for Last 24 Hours 08/05/18 08/06/18 08/07/18 23:59 23:59 23:59 Intake Total 2192 / 2192 2669 / 2669 430 / 430 Output Total 1100 / 1100 1825 / 1825 300 / 300 Balance 1092 / 1092 844 / 844 130 / 130 POC Glucose 08/07/18 08/06/18 08/06/18 06:54 20:48 17:11 POC Glucose 144 H 168 H 225 H 08/06/18 11:38 POC Glucose 205 H Medical Necessity - Tobacco Use Smoking Status: Former smoker Tobacco Use: Non-smoker Assessment/Plan All Active Problems (Last Reviewed 07/20/18 @ 21:39 by Joaquín Laughlin DO) Acute bronchitis (Acute) Influenza A (Acute) Constipation (Acute) PAUL (acute kidney injury) (Acute) Atrial flutter (Acute) Paroxysmal atrial fibrillation (Acute) Hyperlipidemia (Acute) 1. Acute kidney onjury. Normal baseline renal function. 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 Kidney function improved. Creatinine seems to be around 1.1 mg a deciliter. No BMP today. I will order BMP for this morning Continue the same rate of 1/2 NS 75 cc/h avoid nephrotoxins (NSAID or IV contrast). Will continue to monitor renal panel 2- Hypernatremia : Continue half-normal saline at 75 cc/h check sodium level today. 3- Acute hypoxic respiratory failure due to Influenza, CAP/ARDS. Patient was extubated. On NC 3 L/min this morning Antibiotic treatment and oxygen support as per the primary service 4- Aflutter. now sinus. Cardiology service is following Renal team will continue to follow. Please call with any question or concern Isaura Weldon MD [phone]
--- NOTE | 2018-08-07 10:31 | CASEMGMT ---
NASIR faxed updates to [facility]. Lucie GARZA SAFETY RELIEF VALVE TECHNICIAN
[2018-08-07 10:38] LABS: Anion Gap 7 (5-15); BUN 30 mg/dL (7-18); BUN/Creat Ratio 30.8 RATIO (10-20); Chloride 110 mmol/L (98-107); Creatinine, Serum 0.97 mg/dL (0.70-1.30); EST Glomerular Filtration Rate 82 mL/min (>60); Est Glom Filt Rate - Afr Amer 100 mL/min (>60); Estimated Creatinine Clearance 73.45 ml/min; Glucose 186 mg/dL (74-106); Potassium 3.5 mmol/L (3.5-5.1); Sodium Level 141 mmol/L (136-145)
[2018-08-07] MEDS: Insulin Lispro 100 UNIT/ML INSULN.PEN SC ×2 (11:49→17:03)
[2018-08-07] MEDS: Insulin Lispro 100 UNIT/ML INSULN.PEN 10 UNIT SC ×2 (11:49→17:04)
[2018-08-07 12:01] LABS: Bedside Glucose 174 mg/dL (70-110)
--- NOTE | 2018-08-07 14:15 | RAD_ITS ---
STUDY: SWALLOWING STUDY REASON FOR EXAM: Male, 63 years old. Dysplasia TECHNIQUE: The examination was performed with Speech Pathology in attendance. Under fluoroscopic observation, the patient ingested thin barium, thick barium, barium pudding, and barium coated cracker. FLUOROSCOPY TIME: 2:48 minutes/seconds RADIOLOGIST INVOLVEMENT: Radiologist was present and providing direct supervision. COMPARISON: None. FINDINGS: The following was observed during swallowing of the various mixtures of barium: Thin Barium: There was intermittent laryngeal penetration. Thick Barium: There was intermittent laryngeal penetration. Barium Pudding: There was no evidence of aspiration or laryngeal penetration. Barium Coated Cracker: There was no evidence of aspiration or laryngeal penetration. RAD/Swallowing Function w/Video IMPRESSION: Intermittent laryngeal penetration noted with thin and thick liquid swallows. The swallow study findings were discussed with the patient by the speech pathologist at the conclusion of the examination. Please see speech pathology report for more information and recommendations. The procedure was performed by speech therapist under the direct supervision of myself Electronically Signed: Mike Torres, at 16:04 EDT Tel , Service support ,
--- NOTE | 2018-08-07 14:15 | SP.MBSS_ITS ---
PRIMARY / SECONDARY DIAGNOSIS: Dysphagia REFERRING PHYSICIAN: Dr. Garcia CURRENT DIET: puree/honey DENTITION: limited natural dentition w/ numerous missing teeth MENTAL STATUS: able to follow commands for participation in MBS RESPIRATORY STATUS: intubated 07/24/2018, extubated 08/03/2018; lung sounds clear/diminished on 3L/min 02 via nasal cannula PREVIOUS MODIFIED BARIUM SWALLOW STUDY: n/a REASON FOR REFERRAL: further assessment of swallow function under fluoroscopy MEDICAL HISTORY: paroxysmal atrial fibrillation, atherosclerotic heart disease of lime coronary artery without angina pectoris, hyperlipidemia, HTN, pulmonary nodule, rheumatoid arthritis, BPH, GERD, and methotrexate skilled nursing current use STUDY FINDINGS: Patient participated in a Modified Barium Swallow (MBS) study on 07/12/2018. Dr. Castillo was the radiologist present for this evaluation. This study was recorded in the lateral view and images were sent to PACs for storage. The following consistencies were presented to this patient for analysis of oropharyngeal swallow function: honey thickened liquids and pudding. Results of the MBS are as follows: PENETRATION / ASPIRATION SCALE (JUSTICE): 1 = does not enter airway 2 = enters airway/above vocal folds/ejected 3 = enters airway/above vocal folds/not ejected 4 = enters airway/contacts vocal folds/ejected 5 = enters airway/contacts vocal folds/not ejected 6 = enters airway/below vocal folds/ejected 7 = enters airway/below vocal folds/not ejected despite effort 8 = enters airway/below vocal folds/no effort PENETRATION / ASPIRATION SCALE (SCORE): 1.Thin teaspoon: 1 = does not enter airway 2.Thin teaspoon: 3 = enters airway/above vocal folds/not ejected 3.Thin cup (administered by ROOF BOLTER): 3 = enters airway/above vocal folds/not ejected 4.[place] cup (administered by ROOF BOLTER, large volume): 3 = enters airway/above vocal folds/not ejected 5.[place] teaspoon: 1 = does not enter airway 6.[place] teaspoon: 8 = enters airway/below vocal folds/no effort 7.[place] teaspoon w/ chin tuck: 8 = enters airway/below vocal folds/no effort poor view, difficult to assess d/t fluoroscopy suite limitations and patient positioning 8.[place] teaspoon w/ chin tuck: 3 = enters airway/above vocal folds/not ejected 9.[place] teaspoon w/ chin tuck: 5 = enters airway/contacts vocal folds/not ejected 10.Thin teaspoon w/ chin tuck: 1 = does not enter airway 11.Pudd[place] = does not enter airway 12.Thin teaspoon w/ chin tuck: 1 = does not enter airway 13.Thin straw w/ chin tuck: 8 = enters airway/below vocal folds/no effort 14.Thin straw w/ chin tuck: 8 = enters airway/below vocal folds/no effort 15.Cookie: 8 = enters airway/below vocal folds/no effort 16.Thin teaspoon w/ chin tuck: 1 = does not enter airway IMPRESSION ORAL PHASE: LABIAL SEAL: interlabial escape, no progression to anterior lip TONGUE CONTROL DURING BOLUS MANIPULATION: posterior escape of less than half of bolus BOLUS PREPARATION / MASTICATION: slow prolonged chewing/mashing with complete recollection BOLUS TRANSPORT / LINGUAL MOTION: slowed tongue motion ORAL RESIDUE: residue collection on oral structures PHARYNGEAL PHASE: INITIATION OF PHARYNGEAL SWALLOW: bolus head at posterior laryngeal surface of epiglottis at first hyoid excursion SOFT PALATE ELEVATION: no bolus between soft palate and pharyngeal wall LARYNGEAL ELEVATION: partial superior movement of thyroid cartilage/partial approximation of arytenoids cartilage to epiglottic petiole ANTERIOR HYOID EXCURSION: partial anterior movement EPIGLOTTIC MOVEMENT: complete epiglottic inversion LARYNGEAL VESTIBULE CLOSURE AT HEIGHT OF SWALLOW: incomplete laryngeal vestibule closure with narrow column of air/contrast in laryngeal vestibule PHARYNGEAL STRIPPING WAVE: pharyngeal stripping wave present / diminished PHARYNGOESOPHAGEAL SEGMENT OPENING: partial distension and partial duration; partial obstruction of flow TONGUE BASE RETRACTION: narrow column of contrast between tongue base and posterior pharyngeal wall PHARYNGEAL RESIDUE: collection of residue within or on pharyngeal structures ESOPHAGEAL PHASE: ESOPHAGEAL BOLUS CLEARANCE IN THE UPRIGHT POSITION: could not view EFFECTS OF TREATMENT STRATEGIES ATTEMPTED: * Chin tuck posture = effective * Cough and reswallow = effective * Reduced bolus size (liquid by teaspoon) = effective * Reduced rate of intake = effective INTERPRETATION OF RESULTS: Patient presents with moderate oropharyngeal dysphagia (R13.12). Oral phase characterized by: * prolonged mastication w/ inefficiency d/t poor dentition * suboptimal lingual control with noted reduction in oral bolus clearance upon initial lingual sweep Pharyngeal phase characterized by: * delayed pharyngeal swallow onset timing resulting in suboptimal bolus location upon swallow onset * swallow onset at the posterior laryngeal surface of the epiglottis) with contrast reaching the pyriform sinuses w/ subsequent penetration into the laryngeal vestibule from the pyriforms * reduced closure of the airway during deglutition attributed to reduced anterior hyoid excursion resulting insufficient laryngeal vestibule closure with silent aspiration during/after the swallow * insufficient pharyngeal motility w/ a collection of contrast remaining in the pharynx post deglutition d/t reduced tongue based retraction and PES opening * reducing liquid volume (teaspoon) in conjunction w/ chin tuck posture was effective to eliminate penetration/aspiration w/ thin liquids only * aspiration occurred w/ thin liquid via straw, NTL via teaspoon and w/ barium coating of cookie * All ASPIRATION WAS SILENT with a wet vocal quality being the only outward sign of airway compromise * a cued cough was effective to expel a majority of the contrast from the trachea/larynx when aspiration occurred * the patient was noted to inconsistently aspirate w/ varying textures/consistencies t/o exam, but consistently maintained sufficient airway closure w/ all thin liquids trials when presented via teaspoon RECOMMENDATIONS: DIET TEXTURE RECOMMENDATIONS: pureed textures/thin liquids COMPENSATORY STRATEGIES RECOMMENDED: total feed, all boluses presented via teaspoon, CHIN TUCK, alternate pureed and thin liquids small sips via teaspoon, encourage to cough and reswallow throughout meals and following med consumption and especially if wet vocal quality is present; discontinue PO intake if signs of diet intolerance (coughing, choking, throat clearing) occurs NEED FOR SKILLED DYSPHAGIA INTERVENTION: Patient requires intensive skilled speech-language intervention targeting continued diet texture management; training and assessment of consistent implementation of recommended compensatory strategies; oropharyngeal strength training to improve oral and pharyngeal swallow function and reduce aspiration risk ADDITIONAL COMMENTS/RECOMMENDATIONS: Results and recommendations were discussed with the Patient immediately following MBS completion, with the Patient verbalizing understanding and agreement with all recommendations and education provided. IMAGE COUNT: [phone]
--- NOTE | 2018-08-07 16:20 | PCM.PN.HOSP ---
Patient Problems: Active and Suspected Problems (Last Reviewed 07/20/18 @ 21:39 by Joaquín Laughlin DO) Acute bronchitis (Acute) Influenza A (Acute) Constipation (Acute) PAUL (acute kidney injury) (Acute) Atrial flutter (Acute) Subjective: Breathing well. Vitals/I&O's: Vital Signs Temp Pulse Resp BP Pulse Ox 36.9 C 80 16 138/74 H 94 08/07/18 15:00 08/07/18 15:03 08/07/18 15:03 08/07/18 15:00 08/07/18 15:00 Oxygen Flow Rate (L/min) 3 Oxygen Delivery Method Nasal Cannula Weight: 109.2 kg Body Mass Index (BMI) 38.6 Finger Stick Blood Glucose 200 Intake and Output for Last 24 Hours 08/05/18 08/06/18 08/07/18 23:59 23:59 23:59 Intake Total 2192 / 2192 2669 / 2669 903 / 903 Output Total 1100 / 1100 1825 / 1825 675 / 675 Balance 1092 / 1092 844 / 844 228 / 228 General: Alert, No apparent distress HEENT: Atraumatic, Normocephalic Neck: No Nodes, Thyroid Normal Size and Texture Lungs: Diminished, - - coarse BS bilaterally Cardiovascular: Regular rate, Regular Rhythm, Normal S1, Normal S2, No murmurs Abdomen: Bowel Sounds Present, Soft, Non Tender, Non-Distended, No Hepato-splenomegaly Extremities: No Calf Tenderness, Edema Skin: No rashes, No breakdown Psych/Mental Status: Normal Affect, Appropriate Laboratory Results 08/06/18 17:11: POC Glucose 225 H 08/06/18 20:48: POC Glucose 168 H 08/07/18 06:54: POC Glucose 144 H 08/07/18 10:10: Sodium 141, Potassium 3.5, Chloride 110 H, Carbon Dioxide 24.0, Anion Gap 7, BUN 30 H, Creatinine 0.97, Estim Creat Clear Calc 73.45, Est GFR (MDRD) Af Amer 100, Est GFR (MDRD) Non-Af 82, BUN/Creatinine Ratio 30.8 H, Glucose 186 H, Calcium 8.0 L 08/07/18 11:45: POC Glucose 174 H Current Medications Acetaminophen (Tylenol Liquid) 650 mg GT Q4H PRN PRN PRN Reason: FEVER Amiodarone HCl (Cordarone) 200 mg PO BID [facility] Last Admin: 08/07/18 08:47 Dose: 200 mg Apixaban (Eliquis) 5 mg PO BID [facility] Last Admin: 08/07/18 08:49 Dose: 5 mg Aspirin (Aspirin, Baby) 81 mg GT DAILY@0800 [facility] Last Admin: 08/07/18 08:48 Dose: 81 mg Atropine Sulfate () 1 mg IV X1 PRN PRN Reason: SUSTAINED HR <40 Dextrose (D50w Syringe) 0 gm IV X1 PRN; Protocol PRN Reason: Hypoglycemia Finasteride (Proscar) 5 mg PO DAILY [facility] Last Admin: 08/07/18 08:49 Dose: 5 mg Folic Acid (Folic Acid) 1 mg GT DAILYCM [facility] Last Admin: 08/07/18 08:48 Dose: 1 mg Glucagon () 1 mg IM .X1 PRN PRN Reason: Hypoglycemia Heparin Sodium (Porcine) (Heparin Na) 0 unit IV UD PRN; Protocol Last Admin: 07/29/18 15:09 Dose: 1,000 unit Sodium Chloride () 250 mls @ 15 mls/hr IV .[id number] PRN PRN Reason: SALINE FLUSH Sodium Chloride () 1,000 mls @ 75 mls/hr IV .[id number] [facility] Last Admin: 08/07/18 14:55 Dose: 75 mls/hr Insulin Glargine (Lantus (Bkc)) 16 units SC 1100,2200 [facility] Last Admin: 08/07/18 11:50 Dose: 16 units Insulin Human Lispro (Humalog Kwikpen (Bkc)) 0 unit SC TIDAC [facility]; Protocol Last Admin: 08/07/18 11:49 Dose: 3 units Insulin Human Lispro (Humalog Kwikpen (Bkc)) 8 unit SC BREAKFAST [facility] Last Admin: 08/07/18 08:50 Dose: 8 units Insulin Human Lispro (Humalog Kwikpen (Bkc)) 10 unit SC LUNCH [facility] Last Admin: 08/07/18 11:49 Dose: 10 units Insulin Human Lispro (Humalog Kwikpen (Bkc)) 10 unit SC SUPPER [facility] Ipratropium [place] (Atrovent) 0.5 mg INHALATION Q4H.RT [facility] Last Admin: 08/07/18 15:03 Dose: 0.5 mg Labetalol HCl (Trandate) 10 mg IV Q4H PRN PRN PRN Reason: sys>160 DIAST>85 Last Admin: 08/04/18 22:16 Dose: 10 mg 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 (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) 17.5 mg PO Q7D [facility] Last Admin: 08/04/18 11:26 Dose: 17.5 mg Metoprolol Succinate (Toprol Xl (Beta Patricia)) 50 mg PO DAILY [facility] Last Admin: 08/07/18 08:48 Dose: 50 mg Nystatin (Nystatin) 500,000 unit PO 4X/DAY [facility] Last Admin: 08/07/18 14:06 Dose: Not Given Nystatin (Mycostatin Powder) 1 applic TOPICAL TID [facility]; Protocol Last Admin: 08/07/18 14:55 Dose: 1 applicatio Ondansetron HCl (Zofran) 4 mg IV Q8H PRN PRN PRN Reason: NAUSEA Pantoprazole Sodium (Protonix) 40 mg PO DAILY [facility] Last Admin: 08/07/18 08:49 Dose: 40 mg Potassium [facility]) [facility] Last Admin: 08/07/18 08:48 Dose: 20 meq Prednisone () 20 mg PO DAILY@0800 [facility] Last Admin: 08/07/18 08:47 Dose: 20 mg Sodium Chloride () 5 - 15 ml IV UD PRN PRN Reason: SALINE FLUSH Last Admin: 08/04/18 14:45 Dose: 10 ml Sodium Chloride () 10 - 40 ml IV UD PRN PRN Reason: MULTILUMEN/HICMAN CATH FLUSH Last Admin: 08/01/18 10:32 Dose: 30 ml Tamsulosin HCl (Flomax) 0.4 mg PO DAILY@1730 [facility] Last Admin: 08/06/18 17:13 Dose: 0.4 mg Medical Necessity - Tobacco Use Smoking Status: Former smoker Tobacco Use: Non-smoker Assessment/Plan All Active Problems (Last Reviewed 07/20/18 @ 21:39 by Joaquín Laughlin DO) Acute bronchitis (Acute) Influenza A (Acute) Constipation (Acute) PAUL (acute kidney injury) (Acute) Atrial flutter (Acute) Paroxysmal atrial fibrillation (Acute) Hyperlipidemia (Acute) 1. Acute hypoxic respiratory failure: Multifactorial 2. Acute lung injury, improving 3. Suspected pneumococcal pneumonia 4. Influenza A 5. Atrial fibrillation, currently in normal sinus rhythm 6. Diabetes mellitus type 2: Uncontrolled. 7. 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 Continue with insulin as ordered for now. Continue with amiodarone. Discharge planning Discussed with patient's at bedside. Code Visit Inpatient E&M: 52458 Subs Hosp L2
--- NOTE | 2018-08-07 16:28 | PN_ITS ---
Patient Problems: Active and Suspected Problems (Last Reviewed 07/20/18 @ 21:39 by Joaquín Laughlin DO) Acute bronchitis (Acute) Influenza A (Acute) Constipation (Acute) PAUL (acute kidney injury) (Acute) Atrial flutter (Acute) Subjective: Breathing well. Vitals/I&O's: Vital Signs Temp Pulse Resp BP Pulse Ox 36.9 C 80 16 138/74 H 94 08/07/18 15:00 08/07/18 15:03 08/07/18 15:03 08/07/18 15:00 08/07/18 15:00 Oxygen Flow Rate (L/min) 3 Oxygen Delivery Method Nasal Cannula Weight: 109.2 kg Body Mass Index (BMI) 38.6 Finger Stick Blood Glucose 200 Intake and Output for Last 24 Hours 08/05/18 08/06/18 08/07/18 23:59 23:59 23:59 Intake Total 2192 / 2192 2669 / 2669 903 / 903 Output Total 1100 / 1100 1825 / 1825 675 / 675 Balance 1092 / 1092 844 / 844 228 / 228 General: Alert, No apparent distress HEENT: Atraumatic, Normocephalic Neck: No Nodes, Thyroid Normal Size and Texture Lungs: Diminished, - - coarse BS bilaterally Cardiovascular: Regular rate, Regular Rhythm, Normal S1, Normal S2, No murmurs Abdomen: Bowel Sounds Present, Soft, Non Tender, Non-Distended, No Hepato- splenomegaly Extremities: No Calf Tenderness, Edema Skin: No rashes, No breakdown Psych/Mental Status: Normal Affect, Appropriate Laboratory Results 08/06/18 17:11: POC Glucose 225 H 08/06/18 20:48: POC Glucose 168 H 08/07/18 06:54: POC Glucose 144 H 08/07/18 10:10: Sodium 141, Potassium 3.5, Chloride 110 H, Carbon Dioxide 24.0, Anion Gap 7, BUN 30 H, Creatinine 0.97, Estim Creat Clear Calc 73.45, Est GFR (MDRD) Af Amer 100, Est GFR (MDRD) Non-Af 82, BUN/Creatinine Ratio 30.8 H, Glucose 186 H, Calcium 8.0 L 08/07/18 11:45: POC Glucose 174 H Current Medications Acetaminophen (Tylenol Liquid) 650 mg GT Q4H PRN PRN PRN Reason: FEVER Amiodarone HCl (Cordarone) 200 mg PO BID [facility] Last Admin: 08/07/18 08:47 Dose: 200 mg Apixaban (Eliquis) 5 mg PO BID [facility] Last Admin: 08/07/18 08:49 Dose: 5 mg Aspirin (Aspirin, Baby) 81 mg GT DAILY@0800 [facility] Last Admin: 08/07/18 08:48 Dose: 81 mg Atropine Sulfate () 1 mg IV X1 PRN PRN Reason: SUSTAINED HR <40 Dextrose (D50w Syringe) 0 gm IV X1 PRN; Protocol PRN Reason: Hypoglycemia Finasteride (Proscar) 5 mg PO DAILY [facility] Last Admin: 08/07/18 08:49 Dose: 5 mg Folic Acid (Folic Acid) 1 mg GT DAILYCM [facility] Last Admin: 08/07/18 08:48 Dose: 1 mg Glucagon () 1 mg IM .X1 PRN PRN Reason: Hypoglycemia Heparin Sodium (Porcine) (Heparin Na) 0 unit IV UD PRN; Protocol Last Admin: 07/29/18 15:09 Dose: 1,000 unit Sodium Chloride () 250 mls @ 15 mls/hr IV .[id number] PRN PRN Reason: SALINE FLUSH Sodium Chloride () 1,000 mls @ 75 mls/hr IV .[id number] [facility] Last Admin: 08/07/18 14:55 Dose: 75 mls/hr Insulin Glargine (Lantus (Bkc)) 16 units SC 1100,2200 [facility] Last Admin: 08/07/18 11:50 Dose: 16 units Insulin Human Lispro (Humalog Kwikpen (Bkc)) 0 unit SC TIDAC [facility]; Protocol Last Admin: 08/07/18 11:49 Dose: 3 units Insulin Human Lispro (Humalog Kwikpen (Bkc)) 8 unit SC BREAKFAST [facility] Last Admin: 08/07/18 08:50 Dose: 8 units Insulin Human Lispro (Humalog Kwikpen (Bkc)) 10 unit SC LUNCH [facility] Last Admin: 08/07/18 11:49 Dose: 10 units Insulin Human Lispro (Humalog Kwikpen (Bkc)) 10 unit SC SUPPER [facility] Ipratropium [place] (Atrovent) 0.5 mg INHALATION Q4H.RT [facility] Last Admin: 08/07/18 15:03 Dose: 0.5 mg Labetalol HCl (Trandate) 10 mg IV Q4H PRN PRN PRN Reason: sys>160 DIAST>85 Last Admin: 08/04/18 22:16 Dose: 10 mg 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 (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) 17.5 mg PO Q7D [facility] Last Admin: 08/04/18 11:26 Dose: 17.5 mg Metoprolol Succinate (Toprol Xl (Beta Patricia)) 50 mg PO DAILY [facility] Last Admin: 08/07/18 08:48 Dose: 50 mg Nystatin (Nystatin) 500,000 unit PO 4X/DAY [facility] Last Admin: 08/07/18 14:06 Dose: Not Given Nystatin (Mycostatin Powder) 1 applic TOPICAL TID [facility]; Protocol Last Admin: 08/07/18 14:55 Dose: 1 applicatio Ondansetron HCl (Zofran) 4 mg IV Q8H PRN PRN PRN Reason: NAUSEA Pantoprazole Sodium (Protonix) 40 mg PO DAILY [facility] Last Admin: 08/07/18 08:49 Dose: 40 mg Potassium [facility]Dur) [facility] Last Admin: 08/07/18 08:48 Dose: 20 meq Prednisone () 20 mg PO DAILY@0800 [facility] Last Admin: 08/07/18 08:47 Dose: 20 mg Sodium Chloride () 5 - 15 ml IV UD PRN PRN Reason: SALINE FLUSH Last Admin: 08/04/18 14:45 Dose: 10 ml Sodium Chloride () 10 - 40 ml IV UD PRN PRN Reason: MULTILUMEN/HICMAN CATH FLUSH Last Admin: 08/01/18 10:32 Dose: 30 ml Tamsulosin HCl (Flomax) 0.4 mg PO DAILY@1730 [facility] Last Admin: 08/06/18 17:13 Dose: 0.4 mg Medical Necessity - Tobacco Use Smoking Status: Former smoker Tobacco Use: Non-smoker Assessment/Plan All Active Problems (Last Reviewed 07/20/18 @ 21:39 by Joaquín Laughlin DO) Acute bronchitis (Acute) Influenza A (Acute) Constipation (Acute) PAUL (acute kidney injury) (Acute) Atrial flutter (Acute) Paroxysmal atrial fibrillation (Acute) Hyperlipidemia (Acute) 1. Acute hypoxic respiratory failure: Multifactorial 2. Acute lung injury, improving 3. Suspected pneumococcal pneumonia 4. Influenza A 5. Atrial fibrillation, currently in normal sinus rhythm 6. Diabetes mellitus type 2: Uncontrolled. 7. 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 Continue with insulin as ordered for now. Continue with amiodarone. Discharge planning Discussed with patient's at bedside. Code Visit Inpatient E&M: 36824 Subs Hosp L2
[2018-08-07] MEDS: Tamsulosin HCl 0.4 MG Capsule PO (17:05)
[2018-08-07 17:15] LABS: Bedside Glucose 208 mg/dL (70-110)
[2018-08-07 22:05] LABS: Bedside Glucose 186 mg/dL (70-110)
[2018-08-08] VITALS (8 sets, daily range): BP systolic 149–153; BP diastolic 69–72; PULSE 76–90; RESP 16; TEMP 36.8–37.3; O2SAT 88–96
[2018-08-08] MEDS: 0.45% Normal Saline 1,000 ML 75 ML IV (03:23)
[2018-08-08] MEDS: Nystatin Powder 15gm Bottle 1 APPLIC TOPICAL (06:38)
[2018-08-08 06:47] LABS: Anion Gap 9 (5-15); BUN 25 mg/dL (7-18); BUN/Creat Ratio 29.6 RATIO (10-20); Calcium,Total 8.1 mg/dL (8.5-10.1); Chloride 110 mmol/L (98-107); Creatinine, Serum 0.85 mg/dL (0.70-1.30); EST Glomerular Filtration Rate 97 mL/min (>60); Est Glom Filt Rate - Afr Amer 117 mL/min (>60); Estimated Creatinine Clearance 83.82 ml/min; Glucose 106 mg/dL (74-106); Potassium 3.2 mmol/L (3.5-5.1); Sodium Level 143 mmol/L (136-145)
[2018-08-08 06:50] LABS: Bedside Glucose 117 mg/dL (70-110)
[2018-08-08] MEDS: Ipratropium 0.5 MG/2.5 ML SOLUTION INHALATION (07:20)
--- NOTE | 2018-08-08 07:51 | PN.CARD_ITS ---
Subjectve: Patient seen and evaluated. Objective: Vital Signs Temp Pulse Resp BP Pulse Ox 98.2 F 88 16 153/72 H 96 08/08/18 03:00 08/08/18 07:00 08/08/18 03:00 08/08/18 03:00 08/08/18 03:00 Oxygen Flow Rate (L/min) 3 Oxygen Delivery Method Nasal Cannula Weight: 241 lb 6.499 oz Body Mass Index (BMI) 38.6 Finger Stick Blood Glucose 200 Intake and Output for Last 24 Hours 08/06/18 08/07/18 08/08/18 23:59 23:59 23:59 Intake Total 2669 / 2669 1291 / 1291 891 / 891 Output Total 1825 / 1825 1075 / 1075 700 / 700 Balance 844 / 844 216 / 216 191 / 191 General: Awake, Alert, Oriented x 3 HEENT: PERRL, EOMI, Sclera Non Icteric Neck: Supple, Good ROM, No Lymph Node Enlargement Lungs: Clear to auscultation Cardiovascular: Regular Rhythm, Normal S1, Normal S2, No Murmurs, No Rubs, No Gallops Vascular: No Carotid Bruits, Normal Femoral Pulses, Normal Radial Pulses, Normal Dorsalis Pedal Pulse, Normal Posterior Tibial Pulses Abdomen: Bowel Sounds Present, Soft, Non Tender, No HSM, No Organomegaly Extremities: No Cyanosis, No Clubbing, No edema Neurological: No Focal Motor or Sensory Deficit Psych/Mental Status: Appropriate 08/07/18 10:10: Sodium 141, Potassium 3.5, Chloride 110 H, Carbon Dioxide 24.0, Anion Gap 7, BUN 30 H, Creatinine 0.97, Est GFR (MDRD) Af Amer 100, Est GFR (MDRD) Non-Af 82, BUN/Creatinine Ratio 30.8 H, Glucose 186 H, Calcium 8.0 L 08/08/18 05:45: Sodium 143, Potassium 3.2 L, Chloride 110 H, Carbon Dioxide 24.0, Anion Gap 9, BUN 25 H, Creatinine 0.85, Est GFR (MDRD) Af Amer 117, Est GFR (MDRD) Non-Af 97, BUN/Creatinine Ratio 29.6 H, Glucose 106, Calcium 8.1 L Rhythm: EKG: ECHO: Stress Test: Cardiac Cath: PCI: CT Surgery: Holter monitor: EPS: PPM: CXR: Chest CT Scan: Medical Necessity - Tobacco Use Smoking Status: Former smoker Tobacco Use: Non-smoker Assessment/Plan 1. Atrial flutter The patient continues in sinus rhythm at this time. His heart rate however appears to have been trending upwards with a concern that he may go into atrial fibrillation. As you know he is status post previous radiofrequency ablation. * Now that he is extubated we can continue the p.o. amiodarone and see how he does. * His atrial fibrillation appears to be paroxysmal and he will be started on Eliquis at this time. 2. CAD status post RCA PTCA/RACHEL He will need to be monitored for any obvious involvement of his coronary artery system. Thus far his troponin I level was negative. He has remained hemodynamically stable. He has not had no acute changes on his ECG. He will continue medical management as tolerated. 3. Hyperlipidemia He will continue lipid-lowering therapy as tolerated. 4. Hypertension His blood pressure appears to be stable to elevated at this time. He will continue medical adjustment as needed. We will suggest the addition of amlodipine 5 mg a day * His renal function appears to have improved markedly. Thank you for allowing me to participate in the care of your patient. Please don't hesitate to call if any issues arise
--- NOTE | 2018-08-08 08:13 | CPS ---
PT MPLACED BACK ON 3 LPM...SAT 91%
[2018-08-08] MEDS: Aspirin 81 MG TAB.CHEW GT (08:42)
[2018-08-08] MEDS: Pantoprazole Sodium 40 MG Tablet PO (08:42)
[2018-08-08] MEDS: Finasteride 5 MG Tablet PO ×2 (08:43→08:44)
[2018-08-08] MEDS: Folic Acid 1 MG Tablet GT (08:43)
[2018-08-08] MEDS: Amiodarone 200 MG Tablet PO (08:43)
[2018-08-08] MEDS: predniSONE 20 MG Tablet PO (08:43)
[2018-08-08] MEDS: APIXABAN 5 MG TABLET PO (08:45)
[2018-08-08] MEDS: NYSTATIN 500,000 UNIT/5 ML UDC 500000 UNIT PO (08:45)
[2018-08-08] MEDS: Metoprolol(XL)Succ 50 MG Tablet PO (08:45)
[2018-08-08] MEDS: amLODIPine 5 MG Tablet PO (08:48)
[2018-08-08] MEDS: Insulin Lispro 100 UNIT/ML INSULN.PEN 8 UNIT SC (08:49)
--- NOTE | 2018-08-08 09:49 | PN.RENAL_ITS ---
Patient Problems: Active and Suspected Problems (Last Reviewed 07/20/18 @ 21:39 by Joaquín Laughlin DO) Acute bronchitis (Acute) Influenza A (Acute) Constipation (Acute) PAUL (acute kidney injury) (Acute) Atrial flutter (Acute) Subjective: Pt has no nausea No vomiting. Breathing is stable at 3 l/m - Physical Exam General: Alert, Oriented x3 HEENT: Atraumatic Oral: Moist Mucosa Neck: Supple, No JVD Lungs: Clear to auscultation, Normal air movement, No rhonchi, No wheeze Cardiovascular: Regular rate, Regular Rhythm, Normal S1, Normal S2 Abdomen: Bowel Sounds Present, Soft, Non Tender Extremities: No clubbing, No cyanosis, No edema Skin: No rashes Musculoskeletal: No Tenderness to Palpation of Joints or Extremities Lymphatic: No Cervical, Supraclavicular, or Inguinal Adenopathy Neurological: Cranial nerves II-XII grossly intact, Neuro grossly intact Psych/Mental Status: Appropriate Vital Signs Temp Pulse Resp BP Pulse Ox 99.1 F 90 16 149/69 H 95 08/08/18 08:41 08/08/18 08:45 08/08/18 08:41 08/08/18 08:41 08/08/18 08:41 Oxygen Flow Rate (L/min) 3 Oxygen Delivery Method Nasal Cannula Weight: 109.5 kg Body Mass Index (BMI) 38.6 Finger Stick Blood Glucose 200 Intake and Output for Last 24 Hours 08/06/18 08/07/18 08/08/18 23:59 23:59 23:59 Intake Total 2669 / 2669 1291 / 1291 891 / 891 Output Total 1825 / 1825 1075 / 1075 700 / 700 Balance 844 / 844 216 / 216 191 / 191 Laboratory Tests Past 24 Hrs 08/07/18 08/08/18 10:10 05:45 Sodium 141 143 Potassium 3.5 3.2 L Chloride 110 H 110 H Carbon Dioxide 24.0 24.0 Anion Gap 7 9 BUN 30 H 25 H Creatinine 0.97 0.85 Estim Creat Clear Calc 73.45 83.82 Est GFR (MDRD) Af Amer 100 117 Est GFR (MDRD) Non-Af 82 97 BUN/Creatinine Ratio 30.8 H 29.6 H Glucose 186 H 106 Calcium 8.0 L 8.1 L POC Glucose 08/08/18 08/07/18 08/07/18 06:40 21:20 16:59 POC Glucose 117 H 186 H 208 H 08/07/18 11:45 POC Glucose 174 H Medical Necessity - Tobacco Use Smoking Status: Former smoker Tobacco Use: Non-smoker Assessment/Plan All Active Problems (Last Reviewed 07/20/18 @ 21:39 by Joaquín Laughlin DO) Acute bronchitis (Acute) Influenza A (Acute) Constipation (Acute) PAUL (acute kidney injury) (Acute) Atrial flutter (Acute) Paroxysmal atrial fibrillation (Acute) Hyperlipidemia (Acute) 1. Acute kidney onjury. Normal baseline renal function. 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 Kidney function recovered. Cr is at normal level. Will order to remove petersen cath. d/c IVF Encouraged PO fluid intake Will continue to monitor renal panel 2- Hypernatremia : resolved. d/c IV fluid 3- Acute hypoxic respiratory failure due to Influenza, CAP/ARDS. Patient was extubated. On NC 3 L/min this morning Antibiotic treatment and oxygen support as per the primary service 4- Aflutter. now sinus. Cardiology service is following 5- Hypokalemia: K is 3.2. Will give the patient KCl 40 mEq PO one time 6- PBH. continue finasteride and flomax remove petersen cath today and monitor urination ability after Renal team will continue to follow. Please call with any question or concern Isaura Weldon MD [phone]
--- NOTE | 2018-08-08 11:00 | CASEMGMT ---
NASIR faxed more updates to [facility]. ANSIR also spoke with Soni and let her know he may be ready today. Lucie GARZA MSW
[2018-08-08] MEDS: Insulin Lispro 100 UNIT/ML INSULN.PEN 10 UNIT SC (11:50)
[2018-08-08 11:56] LABS: Bedside Glucose 127 mg/dL (70-110)
--- NOTE | 2018-08-08 12:26 | PCM.PN.HOSP ---
Patient Problems: Active and Suspected Problems (Last Reviewed 07/20/18 @ 21:39 by Joaquín Laughlin DO) Acute bronchitis (Acute) Influenza A (Acute) Constipation (Acute) PAUL (acute kidney injury) (Acute) Atrial flutter (Acute) Subjective: Breathing better. Noted swelling in his feet. Vitals/I&O's: Vital Signs Temp Pulse Resp BP Pulse Ox 37.3 C 90 16 149/69 H 95 08/08/18 08:41 08/08/18 11:00 08/08/18 08:41 08/08/18 08:41 08/08/18 08:41 Oxygen Flow Rate (L/min) 3 Oxygen Delivery Method Nasal Cannula Weight: 109.5 kg Body Mass Index (BMI) 38.6 Finger Stick Blood Glucose 200 Intake and Output for Last 24 Hours 08/06/18 08/07/18 08/08/18 23:59 23:59 23:59 Intake Total 2669 / 2669 1291 / 1291 1132 / 1132 Output Total 1825 / 1825 1075 / 1075 1025 / 1025 Balance 844 / 844 216 / 216 107 / 107 General: Alert, No apparent distress HEENT: Atraumatic, Normocephalic Oral: Moist Mucosa, No Gingival or Mucosal Lesions/ Ulcerations Neck: No Nodes, Thyroid Normal Size and Texture Lungs: Clear to auscultation, No rhonchi, No wheeze, Diminished Cardiovascular: Regular rate, Regular Rhythm, Normal S1, Normal S2, No murmurs Abdomen: Bowel Sounds Present, Soft, Non Tender, Non-Distended, No Hepato-splenomegaly Extremities: No Calf Tenderness, Edema Skin: No rashes Psych/Mental Status: Normal Affect, Appropriate Laboratory Results 08/07/18 16:59: POC Glucose 208 H 08/07/18 21:20: POC Glucose 186 H 08/08/18 05:45: Sodium 143, Potassium 3.2 L, Chloride 110 H, Carbon Dioxide 24.0, Anion Gap 9, BUN 25 H, Creatinine 0.85, Estim Creat Clear Calc 83.82, Est GFR (MDRD) Af Amer 117, Est GFR (MDRD) Non-Af 97, BUN/Creatinine Ratio 29.6 H, Glucose 106, Calcium 8.1 L 08/08/18 06:40: POC Glucose 117 H 08/08/18 11:47: POC Glucose 127 H Current Medications Acetaminophen (Tylenol Liquid) 650 mg GT Q4H PRN PRN PRN Reason: FEVER Amiodarone HCl (Cordarone) 200 mg PO BID [facility] Last Admin: 08/08/18 08:43 Dose: 200 mg Amlodipine Besylate (Norvasc) 5 mg PO DAILY [facility] Last Admin: 08/08/18 08:48 Dose: 5 mg Apixaban (Eliquis) 5 mg PO BID [facility] Last Admin: 08/08/18 08:45 Dose: 5 mg Aspirin (Aspirin, Baby) 81 mg GT DAILY@0800 [facility] Last Admin: 08/08/18 08:42 Dose: 81 mg Atropine Sulfate () 1 mg IV X1 PRN PRN Reason: SUSTAINED HR <40 Dextrose (D50w Syringe) 0 gm IV X1 PRN; Protocol PRN Reason: Hypoglycemia Finasteride (Proscar) 5 mg PO DAILY [facility] Last Admin: 08/08/18 08:44 Dose: 5 mg Folic Acid (Folic Acid) 1 mg GT DAILYCM [facility] Last Admin: 08/08/18 08:43 Dose: 1 mg Glucagon () 1 mg IM .X1 PRN PRN Reason: Hypoglycemia Heparin Sodium (Porcine) (Heparin Na) 0 unit IV UD PRN; Protocol Last Admin: 07/29/18 15:09 Dose: 1,000 unit Sodium Chloride () 250 mls @ 15 mls/hr IV .[id number] PRN PRN Reason: SALINE FLUSH Insulin Glargine (Lantus (Bkc)) 16 units SC 1100,2200 [facility] Last Admin: 08/08/18 11:50 Dose: 16 units Insulin Human Lispro (Humalog Kwikpen (Bkc)) 0 unit SC TIDAC [facility]; Protocol Last Admin: 08/08/18 11:49 Dose: Not Given Insulin Human Lispro (Humalog Kwikpen (Bkc)) 8 unit SC BREAKFAST [facility] Last Admin: 08/08/18 08:49 Dose: 8 units Insulin Human Lispro (Humalog Kwikpen (Bkc)) 10 unit SC LUNCH [facility] Last Admin: 08/08/18 11:50 Dose: 10 units Insulin Human Lispro (Humalog Kwikpen (Bkc)) 10 unit SC SUPPER [facility] Last Admin: 08/07/18 17:04 Dose: 10 u Ipratropium [place] (Atrovent) 0.5 mg INHALATION Q4H.RT [facility] Last Admin: 08/08/18 11:25 Dose: Not Given Labetalol HCl (Trandate) 10 mg IV Q4H PRN PRN PRN Reason: sys>[id number] [id number] Last Admin: 08/04/18 22:16 Dose: 10 mg 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 (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) 17.5 mg PO Q7D [facility] Last Admin: 08/04/18 11:26 Dose: 17.5 mg Metoprolol Succinate (Toprol Xl (Beta Patricia)) 50 mg PO DAILY [facility] Last Admin: 08/08/18 08:45 Dose: 50 mg Nystatin (Nystatin) 500,000 unit PO 4X/DAY [facility] Last Admin: 08/08/18 08:45 Dose: 500,000 unit Nystatin (Mycostatin Powder) 1 applic TOPICAL TID [facility]; Protocol Last Admin: 08/08/18 06:38 Dose: 1 applicatio Ondansetron HCl (Zofran) 4 mg IV Q8H PRN PRN PRN Reason: NAUSEA Pantoprazole Sodium (Protonix) 40 mg PO DAILY [facility] Last Admin: 08/08/18 08:42 Dose: 40 mg Prednisone () 20 mg PO DAILY@0800 [facility] Last Admin: 08/08/18 08:43 Dose: 20 mg Sodium Chloride () 5 - 15 ml IV UD PRN PRN Reason: SALINE FLUSH Last Admin: 08/04/18 14:45 Dose: 10 ml Sodium Chloride () 10 - 40 ml IV UD PRN PRN Reason: MULTILUMEN/HICMAN CATH FLUSH Last Admin: 08/01/18 10:32 Dose: 30 ml Tamsulosin HCl (Flomax) 0.4 mg PO DAILY@1730 [facility] Last Admin: 08/07/18 17:05 Dose: 0.4 mg Medical Necessity - Tobacco Use Smoking Status: Former smoker Tobacco Use: Non-smoker Assessment/Plan All Active Problems (Last Reviewed 07/20/18 @ 21:39 by Joaquín Laughlin DO) Acute bronchitis (Acute) Influenza A (Acute) Constipation (Acute) PAUL (acute kidney injury) (Acute) Atrial flutter (Acute) Paroxysmal atrial fibrillation (Acute) Hyperlipidemia (Acute) 1. Acute hypoxic respiratory failure: Multifactorial. improved 2. Acute lung injury, improving 3. Suspected pneumococcal pneumonia: completed treatment 4. Influenza A: resolved 5. Atrial fibrillation, currently in normal sinus rhythm 6. Diabetes mellitus type 2: Uncontrolled. 7. 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 Continue with insulin as ordered for now. Continue with amiodarone. DC to SNF, expressed to patient that is will take time to improve his strength. Code Visit Inpatient E&M: 32959 Subs Hosp L2 - If discharged today, then use the discharge code instead.
--- NOTE | 2018-08-08 12:29 | PN_ITS ---
Patient Problems: Active and Suspected Problems (Last Reviewed 07/20/18 @ 21:39 by Joaquín Laughlin DO) Acute bronchitis (Acute) Influenza A (Acute) Constipation (Acute) PAUL (acute kidney injury) (Acute) Atrial flutter (Acute) Subjective: Breathing better. Noted swelling in his feet. Vitals/I&O's: Vital Signs Temp Pulse Resp BP Pulse Ox 37.3 C 90 16 149/69 H 95 08/08/18 08:41 08/08/18 11:00 08/08/18 08:41 08/08/18 08:41 08/08/18 08:41 Oxygen Flow Rate (L/min) 3 Oxygen Delivery Method Nasal Cannula Weight: 109.5 kg Body Mass Index (BMI) 38.6 Finger Stick Blood Glucose 200 Intake and Output for Last 24 Hours 08/06/18 08/07/18 08/08/18 23:59 23:59 23:59 Intake Total 2669 / 2669 1291 / 1291 1132 / 1132 Output Total 1825 / 1825 1075 / 1075 1025 / 1025 Balance 844 / 844 216 / 216 107 / 107 General: Alert, No apparent distress HEENT: Atraumatic, Normocephalic Oral: Moist Mucosa, No Gingival or Mucosal Lesions/ Ulcerations Neck: No Nodes, Thyroid Normal Size and Texture Lungs: Clear to auscultation, No rhonchi, No wheeze, Diminished Cardiovascular: Regular rate, Regular Rhythm, Normal S1, Normal S2, No murmurs Abdomen: Bowel Sounds Present, Soft, Non Tender, Non-Distended, No Hepato- splenomegaly Extremities: No Calf Tenderness, Edema Skin: No rashes Psych/Mental Status: Normal Affect, Appropriate Laboratory Results 08/07/18 16:59: POC Glucose 208 H 08/07/18 21:20: POC Glucose 186 H 08/08/18 05:45: Sodium 143, Potassium 3.2 L, Chloride 110 H, Carbon Dioxide 24.0, Anion Gap 9, BUN 25 H, Creatinine 0.85, Estim Creat Clear Calc 83.82, Est GFR (MDRD) Af Amer 117, Est GFR (MDRD) Non-Af 97, BUN/Creatinine Ratio 29.6 H, Glucose 106, Calcium 8.1 L 08/08/18 06:40: POC Glucose 117 H 08/08/18 11:47: POC Glucose 127 H Current Medications Acetaminophen (Tylenol Liquid) 650 mg GT Q4H PRN PRN PRN Reason: FEVER Amiodarone HCl (Cordarone) 200 mg PO BID [facility] Last Admin: 08/08/18 08:43 Dose: 200 mg Amlodipine Besylate (Norvasc) 5 mg PO DAILY [facility] Last Admin: 08/08/18 08:48 Dose: 5 mg Apixaban (Eliquis) 5 mg PO BID [facility] Last Admin: 08/08/18 08:45 Dose: 5 mg Aspirin (Aspirin, Baby) 81 mg GT DAILY@0800 [facility] Last Admin: 08/08/18 08:42 Dose: 81 mg Atropine Sulfate () 1 mg IV X1 PRN PRN Reason: SUSTAINED HR <40 Dextrose (D50w Syringe) 0 gm IV X1 PRN; Protocol PRN Reason: Hypoglycemia Finasteride (Proscar) 5 mg PO DAILY [facility] Last Admin: 08/08/18 08:44 Dose: 5 mg Folic Acid (Folic Acid) 1 mg GT DAILYCM [facility] Last Admin: 08/08/18 08:43 Dose: 1 mg Glucagon () 1 mg IM .X1 PRN PRN Reason: Hypoglycemia Heparin Sodium (Porcine) (Heparin Na) 0 unit IV UD PRN; Protocol Last Admin: 07/29/18 15:09 Dose: 1,000 unit Sodium Chloride () 250 mls @ 15 mls/hr IV .[id number] PRN PRN Reason: SALINE FLUSH Insulin Glargine (Lantus (Bkc)) 16 units SC 1100,2200 [facility] Last Admin: 08/08/18 11:50 Dose: 16 units Insulin Human Lispro (Humalog Kwikpen (Bkc)) 0 unit SC TIDAC [facility]; Protocol Last Admin: 08/08/18 11:49 Dose: Not Given Insulin Human Lispro (Humalog Kwikpen (Bkc)) 8 unit SC BREAKFAST [facility] Last Admin: 08/08/18 08:49 Dose: 8 units Insulin Human Lispro (Humalog Kwikpen (Bkc)) 10 unit SC LUNCH [facility] Last Admin: 08/08/18 11:50 Dose: 10 units Insulin Human Lispro (Humalog Kwikpen (Bkc)) 10 unit SC SUPPER [facility] Last Admin: 08/07/18 17:04 Dose: 10 u Ipratropium [place] (Atrovent) 0.5 mg INHALATION Q4H.RT [facility] Last Admin: 08/08/18 11:25 Dose: Not Given Labetalol HCl (Trandate) 10 mg IV Q4H PRN PRN PRN Reason: sys>160 DIAST>85 Last Admin: 08/04/18 22:16 Dose: 10 mg 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 (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) 17.5 mg PO Q7D [facility] Last Admin: 08/04/18 11:26 Dose: 17.5 mg Metoprolol Succinate (Toprol Xl (Beta Patricia)) 50 mg PO DAILY [facility] Last Admin: 08/08/18 08:45 Dose: 50 mg Nystatin (Nystatin) 500,000 unit PO 4X/DAY [facility] Last Admin: 08/08/18 08:45 Dose: 500,000 unit Nystatin (Mycostatin Powder) 1 applic TOPICAL TID [facility]; Protocol Last Admin: 08/08/18 06:38 Dose: 1 applicatio Ondansetron HCl (Zofran) 4 mg IV Q8H PRN PRN PRN Reason: NAUSEA Pantoprazole Sodium (Protonix) 40 mg PO DAILY [facility] Last Admin: 08/08/18 08:42 Dose: 40 mg Prednisone () 20 mg PO DAILY@0800 [facility] Last Admin: 08/08/18 08:43 Dose: 20 mg Sodium Chloride () 5 - 15 ml IV UD PRN PRN Reason: SALINE FLUSH Last Admin: 08/04/18 14:45 Dose: 10 ml Sodium Chloride () 10 - 40 ml IV UD PRN PRN Reason: MULTILUMEN/HICMAN CATH FLUSH Last Admin: 08/01/18 10:32 Dose: 30 ml Tamsulosin HCl (Flomax) 0.4 mg PO DAILY@1730 [facility] Last Admin: 08/07/18 17:05 Dose: 0.4 mg Medical Necessity - Tobacco Use Smoking Status: Former smoker Tobacco Use: Non-smoker Assessment/Plan All Active Problems (Last Reviewed 07/20/18 @ 21:39 by Joaquín Laughlin DO) Acute bronchitis (Acute) Influenza A (Acute) Constipation (Acute) PAUL (acute kidney injury) (Acute) Atrial flutter (Acute) Paroxysmal atrial fibrillation (Acute) Hyperlipidemia (Acute) 1. Acute hypoxic respiratory failure: Multifactorial. improved 2. Acute lung injury, improving 3. Suspected pneumococcal pneumonia: completed treatment 4. Influenza A: resolved 5. Atrial fibrillation, currently in normal sinus rhythm 6. Diabetes mellitus type 2: Uncontrolled. 7. 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 Continue with insulin as ordered for now. Continue with amiodarone. DC to SNF, expressed to patient that is will take time to improve his strength. Code Visit Inpatient E&M: 04115 Subs Hosp L2 - If discharged today, then use the discharge code instead.
--- NOTE | 2018-08-08 12:36 | PCM.TXEXTCAR ---
- Diet 08/03/18 16:57 Diet: Carbohydrate Controlled Food consistency:: Puree Liquid Consistency:: Regular/Thin Dietary Modifications:: Pureed Diet Is pt able to select menu?: No Diet Comments: TOTAL FEED, all liquids by small teaspoon with chin tuck - Routine Orders/Code Status O2 Frequency: Continuous Keep PO Greater than or Equal to (%): 92 Routine Lab Work: CBC, BMP - Wound(s) Left ring finger Wound Type: Abrasion - Therapies Weight Bearing: Full weight bearing Physical Therapy: Eval and Treat Occupational Therapy: Eval and Treat Speech Therapy: Eval and Treat - Problem/Diagnosis (1) Acute bronchitis Status: Acute Current Visit: Yes (2) Influenza A Status: Acute Current Visit: Yes (3) Constipation Status: Acute Current Visit: Yes - Allergies/Procedures Done in Hospital Allergies/Adverse Reactions: Allergies atorvastatin [From Lipitor] Adverse Reaction (Severe, Verified 03/13/18 09:46) Myalgias IVP Dye Adverse Reaction (Unknown, Uncoded 09/08/17 14:23) Unknown Procedures: 2-D Echocardiogram, Intubation - Type of Care/Length of Stay Estimated LOS: Convalescent Care Less Than 30 days Type of Care Needed: Skilled Rehab Potential: Fair Prognosis: Fair - Additional Orders/Day of Discharge Day of Discharge: 08/08/18 - Dietary and Speech Recommendations Dietitian Recommendations/Changes: Continue CHO controlled diet- consistency per RECREATIONAL THERAPIST. Continue daily wts. - Follow Up Care Primary Care Physician: Cesar Andres [Primary Care Provider] - Within 2 Weeks Please Follow Up With: Parul Pulmonology When: 2 weeks Please Follow Up With: Luis Martinez MD When: 2-4 weeks
--- NOTE | 2018-08-08 12:40 | TREXTCAR_ITS ---
- Diet 08/03/18 16:57 Diet: Carbohydrate Controlled Food consistency:: Puree Liquid Consistency:: Regular/Thin Dietary Modifications:: Pureed Diet Is pt able to select menu?: No Diet Comments: TOTAL FEED, all liquids by small teaspoon with chin tuck - Routine Orders/Code Status O2 Frequency: Continuous Keep PO Greater than or Equal to (%): 92 Routine Lab Work: CBC, BMP - Wound(s) Left ring finger Wound Type: Abrasion - Therapies Weight Bearing: Full weight bearing Physical Therapy: Eval and Treat Occupational Therapy: Eval and Treat Speech Therapy: Eval and Treat - Problem/Diagnosis (1) Acute bronchitis Status: Acute Current Visit: Yes (2) Influenza A Status: Acute Current Visit: Yes (3) Constipation Status: Acute Current Visit: Yes - Allergies/Procedures Done in Hospital Allergies/Adverse Reactions: Allergies atorvastatin [From Lipitor] Adverse Reaction (Severe, Verified 03/13/18 09:46) Myalgias IVP Dye Adverse Reaction (Unknown, Uncoded 09/08/17 14:23) Unknown Procedures: 2-D Echocardiogram, Intubation - Type of Care/Length of Stay Estimated LOS: Convalescent Care Less Than 30 days Type of Care Needed: Skilled Rehab Potential: Fair Prognosis: Fair - Additional Orders/Day of Discharge Day of Discharge: 08/08/18 - Dietary and Speech Recommendations Dietitian Recommendations/Changes: Continue CHO controlled diet- consistency per PINBALL MACHINE REPAIRER. Continue daily wts. - Follow Up Care Primary Care Physician: Cesar Andres [Primary Care Provider] - Within 2 Weeks Please Follow Up With: [facility] Pulmonology When: 2 weeks Please Follow Up With: Luis Martinez MD When: 2-4 weeks
--- NOTE | 2018-08-08 12:41 | PCM.DC.SUM ---
Discharge Date and Diagnosis - Problem List Patient Problems: Active and Suspected Problems (Last Reviewed 07/20/18 @ 21:39 by Joaquín Laughlin DO) Acute bronchitis (Acute) Influenza A (Acute) Constipation (Acute) PAUL (acute kidney injury) (Acute) Atrial flutter (Acute) Date of Admission: 07/20/18 Date of Discharge: 08/08/18 - Primary Discharge Diagnosis Active and Suspected Problems (Last Reviewed 07/20/18 @ 21:39 by Joaquín Laughlin DO) Acute bronchitis (Acute) Influenza A (Acute) Constipation (Acute) PAUL (acute kidney injury) (Acute) Atrial flutter (Acute) 1. Acute hypoxic respiratory failure: Multifactorial. improved 2. Acute lung injury, improving 3. Suspected pneumococcal pneumonia: completed treatment 4. Influenza A: resolved 5. Atrial fibrillation, currently in normal sinus rhythm 6. Diabetes mellitus type 2: Uncontrolled. 7. 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 - Secondary Discharge Diagnosis Chronic Problems (Last Reviewed 07/20/18 @ 21:39 by Joaquín Laughlin DO) S/P ablation of atrial fibrillation (Chronic) CAD S/P percutaneous coronary angioplasty (Chronic) Presence of stent in coronary artery (Chronic ~03/15/06) PTCA/RACHEL to Mid RCA 03/15/06 Atherosclerotic heart disease of [place] coronary artery without angina pectoris (Chronic) PTCA/RACHEL to Mid RCA 03/15/06 HTN (hypertension) (Chronic) Hospital Course and Treatment Imaging Results: Clinical Impression(s) from Imaging Studies KUB X-Ray 07/20/18 18:41 IMPRESSION: No evidence of obstruction or perforation. at 2002 Reported and signed by: Salinas Noriega MD Electronically Signed: Salinas Noriega, at 20:02 EST Tel , Service support , Chest X-Ray 07/20/18 19:30 IMPRESSION: No radiographic evidence of acute cardiopulmonary disease. at 2002 Reported and signed by: Salinas Noriega MD Electronically Signed: Salinas Noriega, at 20:02 EST Tel , Service support , Abdomen X-Ray 07/21/18 11:07 IMPRESSION: Diffuse distention of bowel most likely ileus. Distal colonic obstruction not likely but possible. at 0143 Reported and signed by: Salinas Noriega MD Electronically Signed: Salinas Noriega, at 1:42 EST Tel , Service support , Chest X-Ray 07/22/18 09:37 IMPRESSION: Findings concerning for multifocal pneumonia in the appropriate clinical setting with underlying alveolar edema not completely excluded. Recommend follow-up imaging in 4-6 weeks after appropriate treatment. Electronically Signed: Pacheco Galo DO at 9:56 EST , Service support , Chest CTA 07/22/18 17:51 IMPRESSION: No pulmonary embolus. Multifocal bilateral airspace disease in the lungs similar to the most recent chest radiograph but increased compared to 07/20/18 compatible with multifocal pneumonia versus a noninfectious inflammatory pneumonitis. Small, 4.0 cm, ascending thoracic aortic aneurysm with no hemorrhage or dissection. Individualized dose optimization techniques were used for this CT. at 1927 Reported and signed by: Salinas Noriega MD Electronically Signed: Salinas Noriega, at 19:26 EST Tel , Service support , Chest X-Ray 07/24/18 08:42 IMPRESSION: Progressive bilateral airspace disease. The tip of the endotracheal tube is at 4.1 cm proximal to the sunshine. The tip of the orogastric tube is in the body of the stomach. Electronically Signed: Shar Castillo, at 14:18 EST , Service support , Chest X-Ray 07/25/18 08:20 IMPRESSION: Since prior study, there has been improved aeration of both lungs although residual bilateral airspace disease is seen. Electronically Signed: Shar Jonathan, at 9:08 EST , Service support , Chest X-Ray 07/28/18 06:29 IMPRESSION: Since prior study, there has been mild improvement of the aeration of both lungs. Residual bilateral patchy infiltrates are seen. Electronically Signed: Shar Castillo, at 8:22 EST , Service support , KUB X-Ray 07/29/18 05:55 IMPRESSION: Nasogastric tube with its tip in the region of the stomach. Nonspecific gas pattern. Electronically Signed: Emmett Anaya MD at 8:37 EST Tel , Service support , Chest X-Ray 08/01/18 06:46 IMPRESSION: Low-lying ET tube as above. Remainder is unchanged Electronically Signed: Miguel Russell DO at 9:01 EDT Tel , Service support , Videofluoroscopic Swallow 08/07/18 14:15 IMPRESSION: Intermittent laryngeal penetration noted with thin and thick liquid swallows. The swallow study findings were discussed with the patient by the speech pathologist at the conclusion of the examination. Please see speech pathology report for more information and recommendations. The procedure was performed by speech therapist under the direct supervision of myself Electronically Signed: Mike Torres, at 16:04 EDT Tel , Service support , Isaura Dow MD: nephrology Fabio Ponce MD: [facility] Jayme Cruz MD: cardiology. Operations: None Procedures: 2-D Echocardiogram, Intubation Summary of Care Provided: The patient is a 63 year old M resents with shortness of breath and fatigue. Patient was diagnosed with influenza A. Patient endorsed that he did not get an influenza vaccination this year. Patient was with bronchitis and influenza A. Patient did get worse and was simply found to have pneumonia. Patient did required to be intubated. Patient had acute hypoxic respiratory failure due to influenza, pneumonia and acute lung injury/ARDS. Patient was admitted to the ICU. Subsequent patient did develop atrial fibrillation but did convert back. Patient was seen in consultation by cardiology who is advise cutting back his Toprol-XL from 150 and as well as starting amiodarone. Patient was on amiodarone 200 mg twice a day now daily. Patient also had some acute kidney injury likely prerenal that has since resolved. Patient was seen in consultation by nephrology. Patient did have uncontrolled blood sugars and had a hemoglobin A1c of 9.2. Patient is not on any medications for diabetes at home. Patient will be on long-acting basal insulin as well as prandial insulin moving forward. 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 Patient will be going to a group home facility upon discharge. Patient still is on oxygen but overall his breathing is much improved. Patient advised to get influenza vaccination annually. Is unclear if patient had gotten influenza vaccine this year had he been as ill as he was but moving forward patient states that he is going to apply with that recommendation. [] Patient Problems: Active and Suspected Problems (Last Reviewed 07/20/18 @ 21:39 by Joaquín Laughlin DO) Acute bronchitis (Acute) Influenza A (Acute) Constipation (Acute) PAUL (acute kidney injury) (Acute) Atrial flutter (Acute) - Physical Exam Vital Signs Temp Pulse Resp BP Pulse Ox 37.3 C 90 16 149/69 H 95 08/08/18 08:41 08/08/18 11:00 08/08/18 08:41 08/08/18 08:41 08/08/18 08:41 Oxygen Flow Rate (L/min) 3 Oxygen Delivery Method Nasal Cannula Weight: 109.5 kg Body Mass Index (BMI) 38.6 Finger Stick Blood Glucose 200 Intake and Output for Last 24 Hours 08/06/18 08/07/18 08/08/18 23:59 23:59 23:59 Intake Total 2669 / 2669 1291 / 1291 1132 / 1132 Output Total 1825 / 1825 1075 / 1075 1025 / 1025 Balance 844 / 844 216 / 216 107 / 107 Laboratory Tests Past 24 Hrs 08/08/18 05:45 Sodium 143 Potassium 3.2 L Chloride 110 H Carbon Dioxide 24.0 Anion Gap 9 BUN 25 H Creatinine 0.85 Estim Creat Clear Calc 83.82 Est GFR (MDRD) Af Amer 117 Est GFR (MDRD) Non-Af 97 BUN/Creatinine Ratio 29.6 H Glucose 106 Calcium 8.1 L POC Glucose 08/08/18 08/08/18 08/07/18 11:47 06:40 21:20 POC Glucose 127 H 117 H 186 H 08/07/18 16:59 POC Glucose 208 H Discharge Diet: 1800 Calorie Control Diet Discharge Activity: Return to Normal Activity Call your doctor if you observe: Fever of 101 or Higher, Shortness of breath Home Medications: Medications to take at Discharge tamsulosin 0.4 mg capsule 0.4 mg PO DAILY 06/29/17 methotrexate sodium 2.5 mg tablet 17.5 mg PO TU tab 09/08/17 Aspirin [Aspir-Low] 81 mg PO DAILY 07/20/18 Folic Acid 1 mg PO DAILY 07/20/18 Pravastatin Sodium 80 mg PO QHS 07/20/18 Acetaminophen Liquid [Tylenol Liquid] 650 mg GT Q4H PRN PRN udc 08/08/18 Amiodarone HCl [Cordarone] 200 mg PO DAILY tablet 08/08/18 Amlodipine [Norvasc] 5 mg PO DAILY tablet 08/08/18 Apixaban [Eliquis] 5 mg PO BID tablet 08/08/18 Finasteride [Proscar] 5 mg PO DAILY tablet 08/08/18 Insulin Glargine [Lantus SoloStar Pen] 16 units SC 1100,2200 pen 08/08/18 Insulin Lispro [Humalog KwikPen] 8 unit SC BREAKFAST insuln.pen 08/08/18 Insulin Lispro [Humalog KwikPen] 10 unit SC LUNCH insuln.pen 08/08/18 Insulin Lispro [Humalog KwikPen] 10 unit SC SUPPER insuln.pen 08/08/18 Insulin Lispro [Humalog KwikPen] See Protocol SC TIDAC insuln.pen 08/08/18 Ipratropium [Atrovent Aerosols] 0.5 mg INHALATION Q4H.RT solution 08/08/18 Metoprolol(XL)Succ [Toprol Xl (Beta Patricia)] 50 mg PO DAILY tablet 08/08/18 Nystatin 500,000 unit PO 4X/DAY udc 08/08/18 Nystatin Powder [Mycostatin Powder] 1 applic TOPICAL TID bottle 08/08/18 predniSONE tablet 10 mg PO DAILY@0800 #3 tablet 08/08/18 Primary Care Physician: Cesar Andres [Primary Care Provider] - Within 2 Weeks Please Follow Up With: Parul Pulmonology When: 2 weeks Please Follow Up With: Luis Martinez MD When: 2-4 weeks Disposition: [facility] facility Minutes spent on discharge:: 40 Patient Condition:: Fair Medical Necessity - Tobacco Use Smoking Status: Former smoker Tobacco Use: Non-smoker Meaningful Use Info Meaningful Use Diagnoses (Choose all that apply): None applicable Code Visit Inpatient E&M: 40227 Disch Hosp
--- NOTE | 2018-08-08 12:49 | DS.PCM_ITS ---
Discharge Date and Diagnosis - Problem List Patient Problems: Active and Suspected Problems (Last Reviewed 07/20/18 @ 21:39 by Joaquín Laughlin DO) Acute bronchitis (Acute) Influenza A (Acute) Constipation (Acute) PAUL (acute kidney injury) (Acute) Atrial flutter (Acute) Date of Admission: 07/20/18 Date of Discharge: 08/08/18 - Primary Discharge Diagnosis Active and Suspected Problems (Last Reviewed 07/20/18 @ 21:39 by Joaquín Laughlin DO) Acute bronchitis (Acute) Influenza A (Acute) Constipation (Acute) PAUL (acute kidney injury) (Acute) Atrial flutter (Acute) 1. Acute hypoxic respiratory failure: Multifactorial. improved 2. Acute lung injury, improving 3. Suspected pneumococcal pneumonia: completed treatment 4. Influenza A: resolved 5. Atrial fibrillation, currently in normal sinus rhythm 6. Diabetes mellitus type 2: Uncontrolled. 7. 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 - Secondary Discharge Diagnosis Chronic Problems (Last Reviewed 07/20/18 @ 21:39 by Joaquín Laughlin DO) S/P ablation of atrial fibrillation (Chronic) CAD S/P percutaneous coronary angioplasty (Chronic) Presence of stent in coronary artery (Chronic ~03/15/06) PTCA/RACHEL to Mid RCA 03/15/06 Atherosclerotic heart disease of [place] coronary artery without angina pectoris (Chronic) PTCA/RACHEL to Mid RCA 03/15/06 HTN (hypertension) (Chronic) Hospital Course and Treatment Imaging Results: Clinical Impression(s) from Imaging Studies KUB X-Ray 07/20/18 18:41 IMPRESSION: No evidence of obstruction or perforation. at 2002 Reported and signed by: Salinas Noriega MD Electronically Signed: Salinas Noriega, at 20:02 EST Tel , Service support , Chest X-Ray 07/20/18 19:30 IMPRESSION: No radiographic evidence of acute cardiopulmonary disease. at 2002 Reported and signed by: Salinas Noriega MD Electronically Signed: Salinas Noriega, at 20:02 EST Tel , Service support , Abdomen X-Ray 07/21/18 11:07 IMPRESSION: Diffuse distention of bowel most likely ileus. Distal colonic obstruction not likely but possible. at 0143 Reported and signed by: Salinas Noriega MD Electronically Signed: Salinas Noriega, at 1:42 EST Tel , Service support , Chest X-Ray 07/22/18 09:37 IMPRESSION: Findings concerning for multifocal pneumonia in the appropriate clinical setting with underlying alveolar edema not completely excluded. Recommend follow-up imaging in 4-6 weeks after appropriate treatment. Electronically Signed: Pacheco Galo DO at 9:56 EST , Service support , Chest CTA 07/22/18 17:51 IMPRESSION: No pulmonary embolus. Multifocal bilateral airspace disease in the lungs similar to the most recent chest radiograph but increased compared to 07/20/18 compatible with multifocal pneumonia versus a noninfectious inflammatory pneumonitis. Small, 4.0 cm, ascending thoracic aortic aneurysm with no hemorrhage or dissection. Individualized dose optimization techniques were used for this CT. at 1927 Reported and signed by: Salinas Noriega MD Electronically Signed: Salinas Noriega, at 19:26 EST Tel , Service support , Chest X-Ray 07/24/18 08:42 IMPRESSION: Progressive bilateral airspace disease. The tip of the endotracheal tube is at 4.1 cm proximal to the sunshine. The tip of the orogastric tube is in the body of the stomach. Electronically Signed: Shar Castillo, at 14:18 EST , Service support , Chest X-Ray 07/25/18 08:20 IMPRESSION: Since prior study, there has been improved aeration of both lungs although residual bilateral airspace disease is seen. Electronically Signed: Shar Jonathan, at 9:08 EST , Service support , Chest X-Ray 07/28/18 06:29 IMPRESSION: Since prior study, there has been mild improvement of the aeration of both lungs. Residual bilateral patchy infiltrates are seen. Electronically Signed: Shar Castillo, at 8:22 EST , Service support , KUB X-Ray 07/29/18 05:55 IMPRESSION: Nasogastric tube with its tip in the region of the stomach. Nonspecific gas pattern. Electronically Signed: Emmett Anaya MD at 8:37 EST Tel , Service support , Chest X-Ray 08/01/18 06:46 IMPRESSION: Low-lying ET tube as above. Remainder is unchanged Electronically Signed: Miguel Russell DO at 9:01 EDT Tel , Service support , Videofluoroscopic Swallow 08/07/18 14:15 IMPRESSION: Intermittent laryngeal penetration noted with thin and thick liquid swallows. The swallow study findings were discussed with the patient by the speech pathologist at the conclusion of the examination. Please see speech pathology report for more information and recommendations. The procedure was performed by speech therapist under the direct supervision of myself Electronically Signed: Mike Torres, at 16:04 EDT Tel , Service support , Isaura Dow MD: nephrology Fabio Ponce MD: [facility] Jayme Cruz MD: cardiology. Operations: None Procedures: 2-D Echocardiogram, Intubation Summary of Care Provided: The patient is a 63 year old M resents with shortness of breath and fatigue. Patient was diagnosed with influenza A. Patient endorsed that he did not get an influenza vaccination this year. Patient was with bronchitis and influenza A. Patient did get worse and was simply found to have pneumonia. Patient did required to be intubated. Patient had acute hypoxic respiratory failure due to influenza, pneumonia and acute lung injury/ARDS. Patient was admitted to the ICU. Subsequent patient did develop atrial fibrillation but did convert back. Patient was seen in consultation by cardiology who is advise cutting back his Toprol-XL from 150 and as well as starting amiodarone. Patient was on amiodarone 200 mg twice a day now daily. Patient also had some acute kidney in [place] likely prerenal that has since resolved. Patient was seen in consultation by nephrology. Patient did have uncontrolled blood sugars and had a hemoglobin A1c of 9.2. Patient is not on any medications for diabetes at home. Patient will be on long-acting basal insulin as well as prandial insulin moving forward. 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 Patient will be going to a senior care facility upon discharge. Patient still is on oxygen but overall his breathing is much improved. Patient advised to get influenza vaccination annually. Is unclear if patient had gotten influenza vaccine this year had he been as ill as he was but moving forward patient states that he is going to apply with that recommendation. [] Patient Problems: Active and Suspected Problems (Last Reviewed 07/20/18 @ 21:39 by Joaquín Laughlin DO) Acute bronchitis (Acute) Influenza A (Acute) Constipation (Acute) PAUL (acute kidney injury) (Acute) Atrial flutter (Acute) - Physical Exam Vital Signs Temp Pulse Resp BP Pulse Ox 37.3 C 90 16 149/69 H 95 08/08/18 08:41 08/08/18 11:00 08/08/18 08:41 08/08/18 08:41 08/08/18 08:41 Oxygen Flow Rate (L/min) 3 Oxygen Delivery Method Nasal Cannula Weight: 109.5 kg Body Mass Index (BMI) 38.6 Finger Stick Blood Glucose 200 Intake and Output for Last 24 Hours 08/06/18 08/07/18 08/08/18 23:59 23:59 23:59 Intake Total 2669 / 2669 1291 / 1291 1132 / 1132 Output Total 1825 / 1825 1075 / 1075 1025 / 1025 Balance 844 / 844 216 / 216 107 / 107 Laboratory Tests Past 24 Hrs 08/08/18 05:45 Sodium 143 Potassium 3.2 L Chloride 110 H Carbon Dioxide 24.0 Anion Gap 9 BUN 25 H Creatinine 0.85 Estim Creat Clear Calc 83.82 Est GFR (MDRD) Af Amer 117 Est GFR (MDRD) Non-Af 97 BUN/Creatinine Ratio 29.6 H Glucose 106 Calcium 8.1 L POC Glucose 08/08/18 08/08/18 08/07/18 11:47 06:40 21:20 POC Glucose 127 H 117 H 186 H 08/07/18 16:59 POC Glucose 208 H Discharge Diet: 1800 Calorie Control Diet Discharge Activity: Return to Normal Activity Call your doctor if you observe: Fever of 101 or Higher, Shortness of breath Home Medications: Medications to take at Discharge tamsulosin 0.4 mg capsule 0.4 mg PO DAILY 06/29/17 methotrexate sodium 2.5 mg tablet 17.5 mg PO TU tab 09/08/17 Aspirin [Aspir-Low] 81 mg PO DAILY 07/20/18 Folic Acid 1 mg PO DAILY 07/20/18 Pravastatin Sodium 80 mg PO QHS 07/20/18 Acetaminophen Liquid [Tylenol Liquid] 650 mg GT Q4H PRN PRN udc 08/08/18 Amiodarone HCl [Cordarone] 200 mg PO DAILY tablet 08/08/18 Amlodipine [Norvasc] 5 mg PO DAILY tablet 08/08/18 Apixaban [Eliquis] 5 mg PO BID tablet 08/08/18 Finasteride [Proscar] 5 mg PO DAILY tablet 08/08/18 Insulin Glargine [Lantus SoloStar Pen] 16 units SC 1100,2200 pen 08/08/18 Insulin Lispro [Humalog KwikPen] 8 unit SC BREAKFAST insuln.pen 08/08/18 Insulin Lispro [Humalog KwikPen] 10 unit SC LUNCH insuln.pen 08/08/18 Insulin Lispro [Humalog KwikPen] 10 unit SC SUPPER insuln.pen 08/08/18 Insulin Lispro [Humalog KwikPen] See Protocol SC TIDAC insuln.pen 08/08/18 Ipratropium [Atrovent Aerosols] 0.5 mg INHALATION Q4H.RT solution 08/08/18 Metoprolol(XL)Succ [Toprol Xl (Beta Patricia)] 50 mg PO DAILY tablet 08/08/18 Nystatin 500,000 unit PO 4X/DAY udc 08/08/18 Nystatin Powder [Mycostatin Powder] 1 applic TOPICAL TID bottle 08/08/18 predniSONE tablet 10 mg PO DAILY@0800 #3 tablet 08/08/18 Primary Care Physician: Cesar Andres [Primary Care Provider] - Within 2 Weeks Please Follow Up With: Parul Pulmonology When: 2 weeks Please Follow Up With: Luis Martinez MD When: 2-4 weeks Disposition: Custodial facility Minutes spent on discharge:: 40 Patient Condition:: Fair Medical Necessity - Tobacco Use Smoking Status: Former smoker Tobacco Use: Non-smoker Meaningful Use Info Meaningful Use Diagnoses (Choose all that apply): None applicable Code Visit Inpatient E&M: 83206 Disch Hosp
--- NOTE | 2018-08-08 13:46 | CASEMGMT ---
Patient is ready for discharge to [facility]. NASIR faxed orders to [facility]. Completed convalescent on HENS. Called [facility] and arranged for patient to get picked up at 3p via cot. NASIR notified Soni via voice mail, patient, his , and personal secretary. NASIR will also notify RN. Plan: d/c to [facility] under skilled level of care on a convalescent stay. [facility] transported via cot. Lucie GARZA ELECTRIC KNIFE OPERATOR
--- NOTE | 2018-08-08 14:59 | CHAPLAIN ---
Type of Pastoral Visit ___ Initial Visit _x__ Follow-up Visit ___ On-call Visit ___ General Patient Visit ___ Spiritual Assessment ___ Family Conference ___ Bereavement ___ Rapid Response ___ Code Blue ___ Other (describe below) Pastoral Care Referral From _x__ Patient ___ Family ___ Nurse ___ Physician ___ Software Product Manager ___ Waterproofing Supervisor ___ Other (describe below) Sacrament/Intervention _x__ Active listening ___ Anointing ___ Cheondoism ___ Bereavement ___ Communion _x__ Jenna exploration ___ ___ Life review _x__ Prayer ___ Reconciliation ___ Sacrament of Sick _x__ Supportive presence ___ Wedding ___ Other (describe below) Pastoral Comments patient is now able to fully communicate and begins with offering his personal insights about how his life perspective has changed due to his recent illness and near ; pt speaks of new goals for how his life will differ; pt admits to his jenna perspective has grown ten fold; pt welcomes prayer; pt talks about next step into rehab and soon release from hospital
== END 2018-08-08 16:32 | disposition skilled nursing facility (03) | DRG 207 ==
LOC: ED 18:38 → MS3 21:43 → PCU 07-21 19:07 → ICU 07-22 20:23 → PCU 07-24 07:27 → ICU 07-31 07:04 → PCU 08-04 16:20 → ICU 08-07 07:02 → PCU 08-07 07:02
PROVIDERS: Internal Medicine; Internal Medicine Cardiovascular Disease; Internal Medicine Critical Care Medicine; Internal Medicine Nephrology; Emergency Provider Emergency Medicine; Family Provider Family Medicine; PCP Family Medicine
DX: J96.01 Acute respiratory failure with hypoxia (principal); J10.00 Influenza due to other identified influenza virus with unspecified type of pneumonia; R65.20 Severe sepsis without septic shock; A41.9 Sepsis, unspecified organism; N17.0 Acute kidney failure with tubular necrosis; I48.92 Unspecified atrial flutter; M06.9 Rheumatoid arthritis, unspecified; Z23 Encounter for immunization; I25.10 Atherosclerotic heart disease of native coronary artery without angina pectoris; E78.5 Hyperlipidemia, unspecified; G47.33 Obstructive sleep apnea (adult) (pediatric); K59.00 Constipation, unspecified; E11.65 Type 2 diabetes mellitus with hyperglycemia; I10 Essential (primary) hypertension; J80 Acute respiratory distress syndrome; I48.91 Unspecified atrial fibrillation; Z79.899 Other long term (current) drug therapy; Z95.5 Presence of coronary angioplasty implant and graft; Z87.891 Personal history of nicotine dependence; N40.0 Benign prostatic hyperplasia without lower urinary tract symptoms; K21.9 Gastro-esophageal reflux disease without esophagitis; E66.9 Obesity, unspecified; Z68.38 Body mass index [BMI] 38.0-38.9, adult
CPT/HCPCS: 31500; 31720; 36415; 36600; 71045; 71275; 74018; 74019; 74230; 80048; 80053; 80069; 80202; 81001; 82550; 82570; 82803; 82962; 83036; 83605; 83735; 83880; 84100; 84300; 84478; 84484; 85025; 85027; 85610; 85730; 87040; 87070; 87106; 87205; 87641; 87804; 92526; 92611; 93005; 93306; 93971; 94002; 94003; 94640; 94660; 94667; 94668; 95831; 97110; 97162; 97166; 97530; 97802; 99251; 99285; J7030; J7040; J7050; Q9957; Q9967; 90686; A4216; C8929; G0463; J0153; J0330; J1940; J7799; J8610

== ENCOUNTER → 2018-09-08 11:13 | Outpatient (CLI) | payer MEDICARE, OTHER, SELFPAY ==
[2018-09-08 10:11] VITALS: BMI 36.8
[2018-09-08 11:59] LABS: Anion Gap 8 (5-15); BUN 14 mg/dL (7-18); BUN/Creat Ratio 18.6 RATIO (10-20); Chloride 107 mmol/L (98-107); Creatinine, Serum 0.75 mg/dL (0.70-1.30); EST Glomerular Filtration Rate 111 mL/min (>60); Est Glom Filt Rate - Afr Amer 134 mL/min (>60); Glucose 126 mg/dL (74-106); Potassium 3.7 mmol/L (3.5-5.1); Sodium Level 143 mmol/L (136-145)
== END ==
PROVIDERS: Family Provider Family Medicine; PCP Family Medicine; Referring Provider Nurse Practitioner Family; Visit Provider Nurse Practitioner Family
DX: I25.10 Atherosclerotic heart disease of native coronary artery without angina pectoris (principal); I10 Essential (primary) hypertension; E87.6 Hypokalemia
CPT/HCPCS: 36415; 80048

== ENCOUNTER 2018-09-13 23:11 | Emergency (ER) | payer MEDICARE, OTHER, SELFPAY ==
[2018-09-08 10:11] VITALS: BMI 36.8
[2018-09-13 23:12] VITALS: BP 130/78; PULSE 101; RESP 18; TEMP 36.4; O2SAT 94; BMI 37.2
[2018-09-13] MEDS: HYDROcodone Bitartrate/Apap 5/325 Tablet PO (23:41)
[2018-09-13 23:42] LABS: Mucous, Urine 0 SEEN /hpf (<or=2+); Squamous Epithelial Cells - UA 0 SEEN /hpf (0-5)
[2018-09-13 23:44] LABS: Color, Urine Yellow (Yellow); Glucose, Dipstick Normal (Normal); Ketone-Dipstick Negative (Negative); Leukocyte Esterase-Dipstick 25 /ul (Negative); Nitrite-Dipstick Negative (Negative); Occult Blood-Urine 250 /ul (Negative); Protein-Dipstick 100 mg/dl (Negative); Urine Bilirubin Dipstick Negative (Negative); Urine Clarity Sl. Cloudy (Clear); Urine Urobilinogen Normal (Normal)
[2018-09-13 23:50] LABS: Red Blood Cells-Urine 10-25 SEEN /hpf (0-5)
[2018-09-13 23:51] LABS: Bacteria 2+ /hpf (None Seen); White Blood Cells 0-5 SEEN /hpf (0-5); Yeast-Urine 1+ /hpf (None Seen)
--- NOTE | 2018-09-14 00:07 | ED.VISSUMM ---
- ER Visit Summary Date of Service: 09/14/18 Chief Complaint: [Qiu catheter problem] History of Present Illness: The patient is a 63 M [presents to the emergency department with complaint of Qiu catheter not draining today. Patient states that he had a new Qiu catheter placed 3 days ago and a urinalysis was sent for culture. Tonight patient complaining of lower abdominal discomfort and pressure. Patient denies any fevers. He denies nausea or vomiting. Patient also complaining of bilateral foot pain which is been somewhat chronic due to neuropathy. Patient currently on gabapentin for it. Patient has a history of recent hospitalization for respiratory failure related to pneumonia and influenza. Patient spent 3 weeks in the detention and is currently at back at home. Patient has history of a flutter, hypertension, coronary artery disease, and high cholesterol.] Physical Examination: [HEENT-PERRLA, EOMI. Cranial nerves II through XII grossly intact. TMs clear. Mucous membranes moist. No adenopathy. Cardiovascular-regular rate and rhythm without murmur or ectopy Lungs-clear to auscultation, chest wall stable without crepitus or subcu emphysema Abdomen-normoactive bowel sounds, soft, nontender, no rebound or rigidity, no peritoneal signs. Extremities-intact ?4, normal range of motion, normal pulses, atraumatic] Test Results: [Patient had a urinalysis that showed +2 bacteria however no other signs of infection. Urine culture was sent.] Emergency Department Course and Treatment: [Patient had the Qiu catheter evaluated by nurse prior to my arrival in room and it was noted that his catheter was kinked. Patient had the catheter tubing adjusted and immediately was able to have urine drained from his bladder. Patient did feel significantly improved after.] Treatment Plan: [Patient is adamant that the catheter be removed at this time. Patient was told by his current urologist that he may need to have a TURP but will not be able to perform the procedure until possibly November due to his lung issues related to his recent hospitalization. After Qiu catheter was removed patient was able to void 125 cc of urine in the emergency department. Patient will be referred to urologist on-call for follow-up as he does not want to follow-up with the urologist that he had seen prior. Patient given a prescription for [place] for severe pain.] Disposition: [Discharged home in stable condition. Patient advised to return if inability to void or condition should worsen anyway.] Impression: [Qiu catheter removal Acute exacerbation of chronic foot pain ] This note was generated with [employer] dictation software. It may contain incorrect words, spelling, and punctuation that were not noted in review of the chart prior to signing ED Disposition - Plan for ED Patient: Referrals: Cesar Andres [Primary Care Provider] -
--- NOTE | 2018-09-14 00:10 | ED.DCSUM_ITS ---
- ER Visit Summary Date of Service: 09/14/18 Chief Complaint: [Qiu catheter problem] History of Present Illness: The patient is a 63 M [presents to the emergency department with complaint of Qiu catheter not draining today. Patient states that he had a new Qiu catheter placed 3 days ago and a urinalysis was sent for culture. Tonight patient complaining of lower abdominal discomfort and pressure. Patient denies any fevers. He denies nausea or vomiting. Patient also complaining of bilateral foot pain which is been somewhat chronic due to neuropathy. Patient currently on gabapentin for it. Patient has a history of recent hospitalization for respiratory failure related to pneumonia and infl uenza. Patient [facility] and is currently at back at home. Patient has history of a flutter, hypertension, coronary artery disease, and high cholesterol.] Physical Examination: [HEENT-PERRLA, EOMI. Cranial nerves II through XII grossly intact. TMs clear. Mucous membranes moist. No adenopathy. Cardiovascular-regular rate and rhythm without murmur or ectopy Lungs-clear to auscultation, chest wall stable without crepitus or subcu emphysema Abdomen-normoactive bowel sounds, soft, nontender, no rebound or rigidity, no peritoneal signs. Extremities-intact ?4, normal range of motion, normal pulses, atraumatic] Test Results: [Patient had a urinalysis that showed +2 bacteria however no other signs of infection. Urine culture was sent.] Emergency Department Course and Treatment: [Patient had the Qiu catheter evaluated by nurse prior to my arrival in room and it was noted that his catheter was kinked. Patient had the catheter tubing adjusted and immediately was able to have urine drained from his bladder. Patient did feel significantly improved after.] Treatment Plan: [Patient is adamant that the catheter be removed at this time. Patient was told by his current urologist that he may need to have a TURP but will not be able to perform the procedure until possibly November due to his lung issues related to his recent hospitalization. After Qiu catheter was removed patient was able to void 125 cc of urine in the emergency department. Patient will be referred to urologist on-call for follow-up as he does not want to follow-up with the urologist that he had seen prior. Patient given a prescription for [place] for severe pain.] Disposition: [Discharged home in stable condition. Patient advised to return if inability to void or condition should worsen anyway.] Impression: [Qiu catheter removal Acute exacerbation of chronic foot pain ] This note was generated with [employer] dictation software. It may contain incorrect words, spelling, and punctuation that were not noted in review of the chart prior to signing ED Disposition - Plan for ED Patient: Referrals: Cesar Andres [Primary Care Provider] -
--- NOTE | 2018-09-14 00:18 | ED.RN ---
RED PULLED AND PATIENT IS DRINKING FLUIDS TO SEE IF HE CAN VOID ON HIS OWN.
--- NOTE | 2018-09-14 00:57 | ED.DEP ---
ED Disposition - Plan for ED Patient: Instructions: ED Retention Urinary Male Prescriptions: Hydrocodone Bitart/Apap 5-325 [[place] 5MG-325MG] 1 tab PO Q4H PRN PRN 2 Days #10 tab PRN Reason: Pain Referrals: Cesar Andres [Primary Care Provider] - Desean Rivas MD [STAFF PHYSICIAN] - 3-5 Days
[2018-09-14] MEDS: HYDROcodone Bitartrate/Apap 5/325 Tablet PO (01:09)
[2018-09-14 01:10] VITALS: RESP 15
== END 2018-09-14 01:16 | disposition home or self-care (01) ==
LOC: ED 23:39
PROVIDERS: Emergency Provider Emergency Medicine; Family Provider Family Medicine; PCP Family Medicine
DX: T83.098A Other mechanical complication of other urinary catheter, initial encounter (principal); M79.672 Pain in left foot; M79.671 Pain in right foot; G89.29 Other chronic pain; R10.30 Lower abdominal pain, unspecified; I25.10 Atherosclerotic heart disease of native coronary artery without angina pectoris; I48.92 Unspecified atrial flutter; I10 Essential (primary) hypertension; E78.00 Pure hypercholesterolemia, unspecified; Z79.82 Long term (current) use of aspirin; Z79.01 Long term (current) use of anticoagulants; Z79.899 Other long term (current) drug therapy
CPT/HCPCS: 81001; 87077; 87086; 87088; 87186; 99283

== ENCOUNTER → 2018-09-21 20:04 | Outpatient (CLI) | payer MEDICARE, OTHER, SELFPAY ==
[2018-08-25 09:55] VITALS: BMI 34.4
[2018-09-13 23:12] VITALS: BMI 37.2
[2018-09-21] MEDS: Zolpidem Tartrate 5 MG Tablet PO (22:00)
== END ==
PROVIDERS: Family Provider Family Medicine; PCP Family Medicine; Referring Provider Nurse Practitioner Acute Care; Visit Provider Nurse Practitioner Acute Care
DX: G47.33 Obstructive sleep apnea (adult) (pediatric) (principal)
CPT/HCPCS: 95811

== ENCOUNTER → 2018-10-09 09:00 | Outpatient (CLI) | payer MEDICARE, OTHER, SELFPAY ==
[2018-09-13 23:12] VITALS: BMI 37.2
== END ==
PROVIDERS: Family Provider Family Medicine; PCP Family Medicine; Referring Provider Nurse Practitioner Acute Care; Visit Provider Nurse Practitioner Acute Care
DX: G47.33 Obstructive sleep apnea (adult) (pediatric) (principal)

== ENCOUNTER → 2018-11-20 12:13 | Outpatient (CLI) | payer MEDICARE, OTHER, SELFPAY ==
[2018-08-25 09:55] VITALS: BMI 34.4
[2018-11-20 13:12] VITALS: PULSE 83; PULSE 84; PULSE 93; PULSE 94; PULSE 95; PULSE 99; O2SAT 93; O2SAT 94; O2SAT 96
--- NOTE | 2018-11-20 14:27 | PCM.PSN.6M ---
PSN 6 Minute Walk Test - 6 Minute Walk Test 6 Minute Walk Test: 6 Minute Walk Test PSN:6-Minute Walk Test Start: 11/20/18 13:11 Freq: Status: Active Protocol: RESP.6MINW Document 11/20/18 13:12 SARA (Rec: 11/20/18 13:15 SARA [id number]) 6 Minute Walk Test Date Performed 11/20/18 Time Performed 12:30 Height 5 ft 8 in Weight: 239 lb Weight in Pounds 239.[address]: Fabio Ponce Assistive device used: None Pre-test Oxygen Delivery Method Room Air Pulse Ox (%) 96 Pulse Rate (60-100 beats/min) 83 Dyspnea Vernon Scale (0-10) 0 Exertion Vernon Scale (6-20) 6 1st minute Oxygen Delivery Method Room Air Pulse Ox (%) 93 Pulse Rate (60-100 beats/min) 93 2nd minute Oxygen Delivery Method Room Air Pulse Ox (%) 93 Pulse Rate (60-100 beats/min) 93 3rd minute Oxygen Delivery Method Room Air Pulse Ox (%) 93 Pulse Rate (60-100 beats/min) 95 4th minute Oxygen Delivery Method Room Air Pulse Ox (%) 93 Pulse Rate (60-100 beats/min) 94 5th minute Oxygen Delivery Method Room Air Pulse Ox (%) 93 Pulse Rate (60-100 beats/min) 99 6th minute Oxygen Delivery Method Room Air Pulse Ox (%) 94 Pulse Rate (60-100 beats/min) 99 Dyspnea Vernon Scale (0-10) 1 Exertion Vernon Scale (6-20) 12 Post-test Oxygen Delivery Method Room Air Pulse Ox (%) 96 Pulse Rate (60-100 beats/min) 84 Full Laps Walked 17 Partial Lap, Number of Tiles Walked 58 Total Distance Walked (ft) 1061 - Interpretation Interpretation: The patient ambulated 1061 feet over the course of 6 minutes beginning on room air without assistive devices or breaks. Pretesting oxygen saturation was noted to be 96% on room air. With ambulation, the kel oxygen saturation was 93%. There was no significant exertional oxygen desaturation. - Recommendations Recommendations: There is no indication for the use of supplemental oxygen at this time.
== END ==
PROVIDERS: Family Provider Family Medicine; PCP Family Medicine; Referring Provider Nurse Practitioner Acute Care; Visit Provider Nurse Practitioner Acute Care
DX: R06.02 Shortness of breath (principal)
CPT/HCPCS: 94618

== ENCOUNTER → 2018-11-24 12:49 | Outpatient (CLI) | payer MEDICARE, OTHER, SELFPAY ==
[2018-08-25 09:55] VITALS: BMI 34.4
--- NOTE | 2018-11-25 07:00 | PFT_ITS ---
INTRODUCTION: The patient is a 63-year-old male that presents for pulmonary function testing secondary to a diagnosis of shortness of breath. Respiratory therapy reports good patient effort. Bronchodilators were used during testing. INTERPRETATION: Forced expiration spirometry demonstrates no evidence of a large airways obstructive ventilatory defect. There was no significant response to aerosolized bronchodilators. Spirograms are of good quality and plateau normally. The respiratory flow volume loop appears normal. Body plethysmography was performed and reveals lung volumes to be within normal limits. Diffusing capacity by single breath CO is reduced at 62% of predicted. IMPRESSION: Isolated reduction in diffusing capacity, which could be related to an u nderlying pulmonary vascular disorder such as pulmonary hypertension.
== END ==
PROVIDERS: Family Provider Family Medicine; PCP Family Medicine; Referring Provider Nurse Practitioner Acute Care; Visit Provider Nurse Practitioner Acute Care
DX: R06.02 Shortness of breath (principal)
CPT/HCPCS: 94060; 94726; 94729

== ENCOUNTER → 2018-12-18 09:20 | Outpatient (CLI) | payer MEDICARE, OTHER, SELFPAY ==
[2018-11-29 13:27] VITALS: BMI 39.2
[2018-12-18 09:58] LABS: Absolute Lymphocyte Count 1.72 X10^3/uL (0.83-4.51); Basophil# 0.09 X10^3/uL; Basophil% 0.9 % (0-1); Eosinophil# 0.29 X10^3/uL; Hematocrit 43.9 % (40-54); Lymphocyte # 1.72 X10^3/ul (4.0); Lymphocyte % 17.6 % (19-41); Mean Corp Hgb Conc 34.2 g/dL (32-36); Mean Corpuscular Hgb 32.5 pg (27.0-32.0); Mean Corpuscular Volume 95.2 fL (80-94); Mean Platelet Vol. 11.1 fl (6.2-12.0); Monocyte# 0.66 X10^3/uL; Monocyte% 6.7 % (0-10); NRBC Flagged by Analyzer 0 % (0-5); Neutrophil # 6.99 X10^3/uL (2.7-7.7); Neutrophil % 71.3 % (47-70); Platelet Count 231 K/mm3 (150-450); RBC Distribution Width CV 13.2 % (11.6-14.6); RBC Distribution Width SD 45.6 fl (35.1-43.9); Red Blood Count 4.61 M/mm3 (4.6-6.2); White Blood Count 9.8 K/mm3 (4.4-11.0)
[2018-12-18 10:02] LABS: Erythrocyte Sedimentation Rate 17 mm/hr (0-20)
[2018-12-18 10:13] LABS: ALB/GLOB Ratio 1.1 RATIO (0.9-2.4); AST(SGOT) 28 U/L (15-37); Alanine Aminotransfer ALT/SGPT 41 U/L (16-61); Albumin, Serum 3.8 g/dL (3.2-5.0); Alkaline Phosphatase 104 U/L (45-117); Anion Gap 10 (5-15); BUN 19 mg/dL (7-18); BUN/Creat Ratio 17.4 RATIO (10-20); CRP 4.46 mg/L (0.0-3.0); Calcium,Total 9.5 mg/dL (8.5-10.1); Chloride 108 mmol/L (98-107); Creatinine, Serum 1.09 mg/dL (0.70-1.30); EST Glomerular Filtration Rate 72 mL/min (>60); Est Glom Filt Rate - Afr Amer 87 mL/min (>60); Globulin 3.4 g/dL (2.2-4.2); Glucose 225 mg/dL (74-106); Potassium 4.4 mmol/L (3.5-5.1); Protein, Total 7.2 g/dL (6.4-8.2); Sodium Level 142 mmol/L (136-145); Uric Acid 6.9 mg/dL (3.5-7.2)
== END ==
PROVIDERS: Family Provider Family Medicine; PCP Family Medicine
DX: M06.09 Rheumatoid arthritis without rheumatoid factor, multiple sites (principal); M25.531 Pain in right wrist; K76.0 Fatty (change of) liver, not elsewhere classified; Z79.899 Other long term (current) drug therapy
CPT/HCPCS: 36415; 80053; 84550; 85025; 85652; 86140

== ENCOUNTER → 2019-02-21 11:08 | Outpatient (CLI) | payer MEDICARE, OTHER, SELFPAY ==
[2019-02-20 11:55] VITALS: BMI 40.4
--- NOTE | 2019-02-21 11:14 | RAD_ITS ---
HISTORY:SOB, ACUTE UPPER RESP INFECTION SOB, ACUTE UPPER RESP INFECTION EXAM: XR Chest 2 Views: COMPARISON: [facility] 2018 FINDINGS: # of images incl. paperwork: 2 LINES/DEVICES: None. LUNGS: Interstitial thickening is seen bilaterally may be secondary to mild fibrosis.. No consolidation, edema or effusion. No pneumothorax. MEDIASTINUM AND CARDIOVASCULAR STRUCTURES: Cardiac silhouette not enlarged. BONES AND SOFT TISSUES: Unremarkable. RAD/Chest PA and Lateral IMPRESSION: Question mild fibrosis at 2156 Reported and signed by: Monica Guzmán DO Electronically Signed: Monica Guzmán DO at 21:55 EDT Tel , Service support ,
== END ==
PROVIDERS: Family Provider Family Medicine; PCP Family Medicine; Referring Provider Internal Medicine Critical Care Medicine; Visit Provider Internal Medicine Critical Care Medicine
DX: J06.9 Acute upper respiratory infection, unspecified (principal)
CPT/HCPCS: 71046; 87070; 87205; 87633

== ENCOUNTER → 2019-04-13 09:15 | Outpatient (CLI) | payer MEDICARE, OTHER, SELFPAY ==
[2019-04-13 08:35] VITALS: BMI 40.3
[2019-04-13 10:00] LABS: Erythrocyte Sedimentation Rate 26 mm/hr (0-20)
--- NOTE | 2019-04-13 10:00 | RAD_ITS ---
STUDY: X-RAY - PELVIS REASON FOR EXAM: Male, 63 years old. Inflammatory polyarthropathy. TECHNIQUE: One view of the pelvis was obtained. COMPARISON: None. FINDINGS: There is a non-specific bowel gas pattern. 2 undissolved tablets in the cecum. Mild enthesophytes of the iliac crests. Mild degenerative narrowing of the sacroiliac joints without sclerosis or gross erosion. Normal visualized bilateral superior and inferior pubic rami. Mild degenerative changes of the symphysis pubis. Normal ischial tuberosities. Normal visualized right femoral head. Normal right acetabulum. There is mild articular joint space narrowing of the right hip. Normal visualized left femoral head. Normal left acetabulum. There is mild articular joint space narrowing of the left hip. RAD/Pelvis 1 or 2 Views IMPRESSION: Mild enthesophytes of the iliac crests. Mild degenerative changes of the sacroiliac joints, symphysis and hips. Electronically Signed: Landy Davis MD at 18:11 EST , Service support ,
[2019-04-13 10:02] LABS: Absolute Lymphocyte Count 1.35 X10^3/uL (0.83-4.51); Basophil# 0.08 X10^3/uL; Basophil% 1.1 % (0-1); Eosinophil# 0.24 X10^3/uL; Eosinophils% 3.4 % (0-5); Hematocrit 42.7 % (40-54); Hemoglobin 14.3 g/dL (13.0-16.5); Lymphocyte # 1.35 X10^3/ul (4.0); Lymphocyte % 18.9 % (19-41); Mean Corp Hgb Conc 33.5 g/dL (32-36); Mean Corpuscular Volume 95.5 fL (80-94); Mean Platelet Vol. 10.7 fl (6.2-12.0); Monocyte# 0.42 X10^3/uL; Monocyte% 5.9 % (0-10); NRBC Flagged by Analyzer 0 % (0-5); Neutrophil # 5.02 X10^3/uL (2.7-7.7); Neutrophil % 70.4 % (47-70); Platelet Count 217 K/mm3 (150-450); RBC Distribution Width CV 13.3 % (11.6-14.6); RBC Distribution Width SD 46.5 fl (35.1-43.9); Red Blood Count 4.47 M/mm3 (4.6-6.2); White Blood Count 7.1 K/mm3 (4.4-11.0)
[2019-04-13 10:32] LABS: AST(SGOT) 46 U/L (15-37); Alanine Aminotransfer ALT/SGPT 69 U/L (16-61); Albumin, Serum 3.8 g/dL (3.2-5.0); Alkaline Phosphatase 106 U/L (45-117); Anion Gap 8 (5-15); BUN 18 mg/dL (7-18); Bilirubin, Direct 0.14 mg/dL (0.00-0.30); CRP 9.76 mg/L (0.0-3.0); Calcium,Total 8.9 mg/dL (8.5-10.1); Chloride 105 mmol/L (98-107); Cholesterol 156 mg/dL (200); EST Glomerular Filtration Rate 80 mL/min (>60); Est Glom Filt Rate - Afr Amer 96 mL/min (>60); Globulin 3.7 g/dL (2.2-4.2); Glucose 170 mg/dL (74-106); High Density Lipoprotein 50 mg/dL; Potassium 4.1 mmol/L (3.5-5.1); Protein, Total 7.5 g/dL (6.4-8.2); Rheumatoid Factor < 10.0 IU/mL (<15); Sodium Level 139 mmol/L (136-145); Triglycerides 138 mg/dL; Very Low Density Lipoprotein 28 mg/dL (5-40)
[2019-04-13 11:11] LABS: Hepatitis B Surface Antibody Non-Reactive; Hepatitis B Surface Antigen Non-Reactive (Nonreactive); Hepatitis C Antibody Non-Reactive (Nonreactive)
[2019-04-17 14:07] LABS: QNTFERON TB Mitogen Value > 10.00 IU/mL (.); QNTFERON TB Nil Value 0.03 IU/mL (.); QNTFERON TB1+ Ag Value 0.03 IU/mL (.); QNTFERON TB2+ Ag Value 0.02 IU/mL (.)
[2019-04-17 14:27] LABS: CCP IgG Antibodies 8 units (0-19); HLA B27 Negative (.); Hepatitis B Core AB IgM Negative (Negative); QNTIFERON TB Positive Criteria Negative (Negative)
== END ==
PROVIDERS: Family Provider Family Medicine; PCP Family Medicine; Referring Provider Internal Medicine Rheumatology; Visit Provider Internal Medicine Rheumatology
DX: E78.00 Pure hypercholesterolemia, unspecified (principal); M06.4 Inflammatory polyarthropathy; K21.9 Gastro-esophageal reflux disease without esophagitis; I48.0 Paroxysmal atrial fibrillation; I25.10 Atherosclerotic heart disease of native coronary artery without angina pectoris; G47.33 Obstructive sleep apnea (adult) (pediatric); N40.0 Benign prostatic hyperplasia without lower urinary tract symptoms
CPT/HCPCS: 36415; 72170; 80053; 80061; 81374; 82248; 85025; 85652; 86140; 86200; 86431; 86480; 86705; 86706; 86803; 87340

== ENCOUNTER → 2019-04-20 06:54 | Outpatient (CLI) | payer MEDICARE, OTHER, SELFPAY ==
[2019-04-13 08:35] VITALS: BMI 40.3
[2019-04-22 03:06] LABS: Red Blood Cell Count Test/G6PD 4.53 x10E6/uL (4.14-5.80)
[2019-04-22 13:01] LABS: G6PD Quant Test 318 (146-376)
== END ==
PROVIDERS: Family Provider Family Medicine; PCP Family Medicine; Referring Provider Internal Medicine Rheumatology; Visit Provider Internal Medicine Rheumatology
DX: M06.4 Inflammatory polyarthropathy (principal); K21.9 Gastro-esophageal reflux disease without esophagitis; I48.0 Paroxysmal atrial fibrillation; I25.10 Atherosclerotic heart disease of native coronary artery without angina pectoris
CPT/HCPCS: 82955

== ENCOUNTER → 2019-06-01 09:19 | Outpatient (CLI) | payer MEDICARE, OTHER, SELFPAY ==
[2019-04-13 08:35] VITALS: BMI 40.3
[2019-06-01 10:35] LABS: Absolute Lymphocyte Count 1.46 X10^3/uL (0.83-4.51); Absolute Neutrophil Count 6.6 X10^3/uL (2.0-7.7); Basophil% 1.1 % (0-1); Eosinophil# 0.23 X10^3/uL; Eosinophils% 2.6 % (0-5); Hemoglobin 14.9 g/dL (13.0-16.5); Lymphocyte # 1.46 X10^3/ul (4.0); Lymphocyte % 16.2 % (19-41); Mean Corp Hgb Conc 33.1 g/dL (32-36); Mean Corpuscular Volume 93.6 fL (80-94); Mean Platelet Vol. 11.8 fl (6.2-12.0); Monocyte# 0.57 X10^3/uL; Monocyte% 6.3 % (0-10); NRBC Flagged by Analyzer 0 % (0-5); Neutrophil % 73.4 % (47-70); Platelet Count 224 K/mm3 (150-450); RBC Distribution Width CV 13.4 % (11.6-14.6); RBC Distribution Width SD 45.7 fl (35.1-43.9); Red Blood Count 4.81 M/mm3 (4.6-6.2)
[2019-06-01 11:13] LABS: ALB/GLOB Ratio 1.1 RATIO (0.9-2.4); AST(SGOT) 41 U/L (15-37); Alanine Aminotransfer ALT/SGPT 54 U/L (16-61); Albumin, Serum 3.9 g/dL (3.2-5.0); Alkaline Phosphatase 137 U/L (45-117); Anion Gap 5 (5-15); BUN 18 mg/dL (7-18); BUN/Creat Ratio 15.4 RATIO (10-20); Calcium,Total 9.6 mg/dL (8.5-10.1); Chloride 105 mmol/L (98-107); Creatinine, Serum 1.17 mg/dL (0.70-1.30); EST Glomerular Filtration Rate 66 mL/min (>60); Est Glom Filt Rate - Afr Amer 80 mL/min (>60); Globulin 3.7 g/dL (2.2-4.2); Glucose 350 mg/dL (74-106); Potassium 4.2 mmol/L (3.5-5.1); Protein, Total 7.6 g/dL (6.4-8.2); Sodium Level 136 mmol/L (136-145)
== END ==
PROVIDERS: Family Provider Family Medicine; PCP Family Medicine; Referring Provider Internal Medicine Rheumatology; Visit Provider Internal Medicine Rheumatology
DX: M06.4 Inflammatory polyarthropathy (principal); K21.9 Gastro-esophageal reflux disease without esophagitis; I48.0 Paroxysmal atrial fibrillation; I25.10 Atherosclerotic heart disease of native coronary artery without angina pectoris; E78.5 Hyperlipidemia, unspecified; G47.33 Obstructive sleep apnea (adult) (pediatric); N40.0 Benign prostatic hyperplasia without lower urinary tract symptoms; Z79.899 Other long term (current) drug therapy
CPT/HCPCS: 36415; 80053; 85025

== ENCOUNTER → 2019-06-05 10:35 | Outpatient (CLI) | payer MEDICARE, OTHER, SELFPAY ==
[2019-04-13 08:35] VITALS: BMI 40.3
--- NOTE | 2019-06-05 10:38 | US_ITS ---
STUDY: ABDOMINAL ULTRASOUND - RIGHT UPPER QUADRANT REASON FOR VISIT: Male, 64 years old elevated labs TECHNIQUE: Ultrasound evaluation of the right upper quadrant was performed with real-time and static miller-scale imaging. TECHNICAL QUALITY: Limited. Examination limited due to a combination of factors including obesity and bowel gas. COMPARISON: None. FINDINGS: Liver: The liver measures 16.8 cm. There is increased echogenicity consistent with fatty infiltration. The bile ducts are within normal limits. There is hepatic color flow. The direction of portal flow is hepatopetal. There is no demonstrated mass lesion. There is focal area of fatty sparing by the gallbladder fossa. Gallbladder: Normal distended gallbladder. The gallbladder wall measures 1.6 mm. There is a negative sonographic Holder''s sign. There is no pericholecystic fluid. There are no gallstones. Common Bile Duct (C.B.D.): The common bile duct measures 6.9 mm. Pancreas: There is nonvisualization of the pancreas. Right Kidney: Normal size of the right kidney. The right kidney measures 10.3 x 6.2 x 6.2 cm. Normal renal cortex. The right cortex measures 2.0 cm. At the upper pole of the right kidney there is a round anechoic structure measuring 6.7 x 3.7 x 3.9 cm consistent with a cyst. There is no right hydronephrosis. US/Liver IMPRESSION: Diffuse fatty liver as described above. No gallstones or signs of acute cholecystitis. Nonvisualized pancreas, unremarkable right upper quadrant ultrasound examination. Electronically Signed: Marisabel Cook MD at 3:09 EST , Service support ,
== END ==
PROVIDERS: Family Provider Family Medicine; PCP Family Medicine; Referring Provider Internal Medicine Rheumatology; Visit Provider Internal Medicine Rheumatology
DX: R94.5 Abnormal results of liver function studies (principal); M06.4 Inflammatory polyarthropathy; K21.9 Gastro-esophageal reflux disease without esophagitis; G47.33 Obstructive sleep apnea (adult) (pediatric); N40.0 Benign prostatic hyperplasia without lower urinary tract symptoms; I48.0 Paroxysmal atrial fibrillation; I25.10 Atherosclerotic heart disease of native coronary artery without angina pectoris; E78.5 Hyperlipidemia, unspecified; Z79.899 Other long term (current) drug therapy
CPT/HCPCS: 76705

== ENCOUNTER → 2019-06-22 06:16 | Outpatient (CLI) | payer MEDICARE, OTHER, SELFPAY ==
[2019-06-12 15:06] VITALS: BMI 40.8
--- NOTE | 2019-06-22 12:44 | STRESSREP ---
Stress Test Report Date: 06-22-2019 Procedure: Pharmacologic stress nuclear imaging study Indications: Chest pain; CAD; PCI; atrial fibrillation; EPS/RFA Consent: Per the patient Procedure: The patient underwent pharmacologic (Regadenoson) evaluation with a peak heart rate of 100 beats per minute (64 %predicted maximal heart rate) and a peak blood pressure of 132/80 mmHg. The baseline ECG demonstrated sinus rhythm. The peak pharmacologic ECG demonstrated no obvious ECG changes. There was an occasional PAC during infusion. There was no complaint of chest discomfort during pharmacologic infusion or recovery. The examination was discontinued secondary to completion of protocol. Impression: 1. Pharmacologic (Regadenoson) evaluation 2. Peak pharmacologic ECG with no obvious ECG changes. 3. There was an occasional PAC during infusion. 4. Nuclear images pending Myocardial perfusion imaging study: Technique: The patient was injected with 14.8 millicuries of technetium 99m Cardiolite and subsequently rest SPECT Cardiolite nuclear imaging was obtained in the horizontal long, vertical long, and short axis views. The patient underwent pharmacologic (Regadenoson) evaluation with a peak heart rate of 100 beats per minute (64 % percent predicted maximal heart rate) and a peak blood pressure of 132/80 mmHg. The patient was injected with 44.5 millicuries of technetium 99m Cardiolite and subsequently stress SPECT Cardiolite nuclear imaging was obtained in the horizontal long, vertical long, and short axis views. A gated Cardiolite study at peak stress was obtained. Interpretation: Rest and stress SPECT Cardiolite nuclear imaging status post realignment, normalization, and attenuation correction demonstrate relative uniform tracer uptake and myocardial perfusion appearing within normal limits. There is end systolic thickening and brightening. The gated Cardiolite study demonstrates myocardial thickening and inward wall motion. The reported LVEF is 73 %. Impression: 1. Rest and stress SPECT Cardiolite nuclear imaging demonstrate relative uniform tracer uptake and myocardial perfusion appearing within normal limits. 2. The gated Cardiolite study reports an LVEF of 73 %. This note was generated with [employer] software. It may contain incorrect words, spelling, and punctuation that were not noted in checking the note before signing.
== END ==
PROVIDERS: PCP Family Medicine; Referring Provider Nurse Practitioner Family; Visit Provider Nurse Practitioner Family
DX: R07.9 Chest pain, unspecified (principal); I25.10 Atherosclerotic heart disease of native coronary artery without angina pectoris; I48.0 Paroxysmal atrial fibrillation; I10 Essential (primary) hypertension; E78.00 Pure hypercholesterolemia, unspecified; Z95.5 Presence of coronary angioplasty implant and graft
CPT/HCPCS: 78452; 93017; A9500; A4216; J2785

== ENCOUNTER → 2019-07-20 09:34 | Outpatient (CLI) | payer MEDICARE, OTHER, SELFPAY ==
[2019-07-20 09:02] VITALS: BMI 40.8
[2019-07-20 12:38] LABS: Absolute Lymphocyte Count 1.65 X10^3/uL (0.83-4.51); Absolute Neutrophil Count 5.2 X10^3/uL (2.0-7.7); Basophil# 0.09 X10^3/uL; Basophil% 1.2 % (0-1); Eosinophil# 0.18 X10^3/uL; Eosinophils% 2.4 % (0-5); Hematocrit 45.8 % (40-54); Hemoglobin 15.2 g/dL (13.0-16.5); Lymphocyte # 1.65 X10^3/ul (4.0); Mean Corp Hgb Conc 33.2 g/dL (32-36); Mean Corpuscular Hgb 31.1 pg (27.0-32.0); Mean Corpuscular Volume 93.7 fL (80-94); Mean Platelet Vol. 12.3 fl (6.2-12.0); Monocyte% 5.3 % (0-10); NRBC Flagged by Analyzer 0 % (0-5); Neutrophil # 5.16 X10^3/uL (2.7-7.7); Neutrophil % 68.8 % (47-70); Platelet Count 215 K/mm3 (150-450); RBC Distribution Width CV 13.2 % (11.6-14.6); RBC Distribution Width SD 45.1 fl (35.1-43.9); Red Blood Count 4.89 M/mm3 (4.6-6.2); White Blood Count 7.5 K/mm3 (4.4-11.0)
[2019-07-20 12:56] LABS: ALB/GLOB Ratio 0.9 RATIO (0.9-2.4); AST(SGOT) 24 U/L (15-37); Alanine Aminotransfer ALT/SGPT 52 U/L (16-61); Albumin, Serum 3.7 g/dL (3.2-5.0); Alkaline Phosphatase 135 U/L (45-117); Anion Gap 7 (5-15); BUN 17 mg/dL (7-18); BUN/Creat Ratio 15.3 RATIO (10-20); Calcium,Total 9.3 mg/dL (8.5-10.1); Chloride 103 mmol/L (98-107); Creatinine, Serum 1.11 mg/dL (0.70-1.30); EST Glomerular Filtration Rate 70 mL/min (>60); Est Glom Filt Rate - Afr Amer 85 mL/min (>60); Glucose 339 mg/dL (74-106); Potassium 4.2 mmol/L (3.5-5.1); Protein, Total 7.7 g/dL (6.4-8.2); Sodium Level 137 mmol/L (136-145)
[2019-07-20 13:00] LABS: Hemoglobin A1c 12.1 % (4.2-6.3)
[2019-07-20 13:11] LABS: Microalbumin:Creatinine Ratio 310.9 mg/g CRE (<30 mg/g CRE)
== END ==
PROVIDERS: Internal Medicine Rheumatology; PCP Internal Medicine; Referring Provider Internal Medicine; Visit Provider Internal Medicine
DX: M06.4 Inflammatory polyarthropathy (principal); K76.0 Fatty (change of) liver, not elsewhere classified; K21.9 Gastro-esophageal reflux disease without esophagitis; I48.0 Paroxysmal atrial fibrillation; I25.10 Atherosclerotic heart disease of native coronary artery without angina pectoris; E78.5 Hyperlipidemia, unspecified; G47.33 Obstructive sleep apnea (adult) (pediatric); N40.0 Benign prostatic hyperplasia without lower urinary tract symptoms; E11.9 Type 2 diabetes mellitus without complications; Z79.899 Other long term (current) drug therapy
CPT/HCPCS: 36415; 80053; 82043; 82570; 83036; 85025

== ENCOUNTER → 2019-08-02 10:10 | Outpatient (CLI) | payer MEDICARE, OTHER, SELFPAY ==
[2019-07-27 08:35] VITALS: BMI 40.8
[2019-08-02 13:15] LABS: Anion Gap 7 (5-15); BUN 17 mg/dL (7-18); BUN/Creat Ratio 18.2 RATIO (10-20); Calcium,Total 9.1 mg/dL (8.5-10.1); Chloride 104 mmol/L (98-107); Creatinine, Serum 0.93 mg/dL (0.70-1.30); EST Glomerular Filtration Rate 86 mL/min (>60); Est Glom Filt Rate - Afr Amer 104 mL/min (>60); Glucose 284 mg/dL (74-106); Sodium Level 138 mmol/L (136-145)
== END ==
PROVIDERS: PCP Internal Medicine; Referring Provider Internal Medicine; Visit Provider Internal Medicine
DX: E11.9 Type 2 diabetes mellitus without complications (principal); I10 Essential (primary) hypertension
CPT/HCPCS: 36415; 80048

== ENCOUNTER → 2019-10-18 07:11 | Outpatient (CLI) | payer MEDICARE, OTHER, SELFPAY ==
[2019-10-17 09:28] VITALS: BMI 39.6
[2019-10-18 08:13] LABS: Absolute Lymphocyte Count 1.55 X10^3/uL (0.83-4.51); Absolute Neutrophil Count 4.7 X10^3/uL (2.0-7.7); Basophil% 1.4 % (0-1); Eosinophil# 0.24 X10^3/uL; Eosinophils% 3.4 % (0-5); Hematocrit 41.2 % (40-54); Hemoglobin 13.4 g/dL (13.0-16.5); Lymphocyte # 1.55 X10^3/ul (4.0); Mean Corp Hgb Conc 32.5 g/dL (32-36); Mean Corpuscular Hgb 31.3 pg (27.0-32.0); Mean Corpuscular Volume 96.3 fL (80-94); Mean Platelet Vol. 11.1 fl (6.2-12.0); Monocyte# 0.48 X10^3/uL; Monocyte% 6.8 % (0-10); NRBC Flagged by Analyzer 0 % (0-5); Neutrophil # 4.66 X10^3/uL (2.7-7.7); Neutrophil % 66.1 % (47-70); Platelet Count 228 K/mm3 (150-450); RBC Distribution Width CV 14.6 % (11.6-14.6); RBC Distribution Width SD 50.8 fl (35.1-43.9); Red Blood Count 4.28 M/mm3 (4.6-6.2); White Blood Count 7.1 K/mm3 (4.4-11.0)
[2019-10-18 08:42] LABS: ALB/GLOB Ratio 1.1 RATIO (0.9-2.4); AST(SGOT) 48 U/L (15-37); Alanine Aminotransfer ALT/SGPT 74 U/L (16-61); Albumin, Serum 3.5 g/dL (3.2-5.0); Alkaline Phosphatase 97 U/L (45-117); Anion Gap 8 (5-15); BUN 17 mg/dL (7-18); BUN/Creat Ratio 17.1 RATIO (10-20); Bilirubin, Direct 0.15 mg/dL (0.00-0.30); Calcium,Total 8.9 mg/dL (8.5-10.1); Chloride 108 mmol/L (98-107); Cholesterol 122 mg/dL (200); EST Glomerular Filtration Rate 80 mL/min (>60); Est Glom Filt Rate - Afr Amer 96 mL/min (>60); Globulin 3.3 g/dL (2.2-4.2); Glucose 166 mg/dL (74-106); High Density Lipoprotein 43 mg/dL; Potassium 3.9 mmol/L (3.5-5.1); Protein, Total 6.8 g/dL (6.4-8.2); Sodium Level 141 mmol/L (136-145); Triglycerides 107 mg/dL; Very Low Density Lipoprotein 21 mg/dL (5-40)
[2019-10-18 08:48] LABS: T4 Free Direct 0.95 ng/dL (0.76-1.46); Thyroid Stim Hormone (TSH) 1.78 uIU/mL (0.358-3.74)
== END ==
PROVIDERS: Internal Medicine Cardiovascular Disease; PCP Internal Medicine; Referring Provider Internal Medicine; Visit Provider Internal Medicine
DX: M06.4 Inflammatory polyarthropathy (principal); K76.0 Fatty (change of) liver, not elsewhere classified; K21.9 Gastro-esophageal reflux disease without esophagitis; I48.0 Paroxysmal atrial fibrillation; I25.10 Atherosclerotic heart disease of native coronary artery without angina pectoris; E78.5 Hyperlipidemia, unspecified; G47.33 Obstructive sleep apnea (adult) (pediatric); N40.0 Benign prostatic hyperplasia without lower urinary tract symptoms; E11.9 Type 2 diabetes mellitus without complications; K59.09 Other constipation; Z79.899 Other long term (current) drug therapy
CPT/HCPCS: 36415; 80053; 80061; 82248; 84439; 84443; 85025

== ENCOUNTER → 2019-11-05 07:13 | Outpatient (CLI) | payer MEDICARE, OTHER, SELFPAY ==
[2019-10-17 09:28] VITALS: BMI 39.6
[2019-11-05 07:55] LABS: ALB/GLOB Ratio 1.1 RATIO (0.9-2.4); AST(SGOT) 36 U/L (15-37); Alanine Aminotransfer ALT/SGPT 55 U/L (16-61); Albumin, Serum 3.6 g/dL (3.2-5.0); Alkaline Phosphatase 89 U/L (45-117); Anion Gap 8 (5-15); BUN 15 mg/dL (7-18); BUN/Creat Ratio 15.2 RATIO (10-20); Calcium,Total 9.5 mg/dL (8.5-10.1); Chloride 108 mmol/L (98-107); Creatinine, Serum 0.99 mg/dL (0.70-1.30); EST Glomerular Filtration Rate 80 mL/min (>60); Est Glom Filt Rate - Afr Amer 97 mL/min (>60); Globulin 3.4 g/dL (2.2-4.2); Glucose 182 mg/dL (74-106); Potassium 4.4 mmol/L (3.5-5.1); Sodium Level 139 mmol/L (136-145)
== END ==
PROVIDERS: PCP Internal Medicine; Referring Provider Internal Medicine Rheumatology; Visit Provider Internal Medicine Rheumatology
DX: M06.4 Inflammatory polyarthropathy (principal); Z79.899 Other long term (current) drug therapy; K76.0 Fatty (change of) liver, not elsewhere classified; K21.9 Gastro-esophageal reflux disease without esophagitis; I48.0 Paroxysmal atrial fibrillation; I25.10 Atherosclerotic heart disease of native coronary artery without angina pectoris; E78.5 Hyperlipidemia, unspecified; G47.33 Obstructive sleep apnea (adult) (pediatric); N40.0 Benign prostatic hyperplasia without lower urinary tract symptoms; E11.9 Type 2 diabetes mellitus without complications
CPT/HCPCS: 36415; 80053

== ENCOUNTER 2019-12-12 10:32 | Outpatient (RCR) | payer MEDICARE, OTHER, SELFPAY ==
[2019-10-17 09:28] VITALS: BMI 39.6
== END 2019-12-21 23:59 ==
LOC: DC 10:32
PROVIDERS: PCP Internal Medicine; Visit Provider Internal Medicine
DX: Z71.3 Dietary counseling and surveillance (principal); E11.9 Type 2 diabetes mellitus without complications
CPT/HCPCS: G0108

== ENCOUNTER 2020-01-10 11:00 | Outpatient (RCR) | payer MEDICARE, OTHER, SELFPAY ==
[2019-10-17 09:28] VITALS: BMI 39.6
== END 2020-01-21 23:59 ==
LOC: DC 11:00
PROVIDERS: PCP Internal Medicine; Visit Provider Internal Medicine
DX: Z71.3 Dietary counseling and surveillance (principal); E11.9 Type 2 diabetes mellitus without complications
CPT/HCPCS: 97802; G0108

== ENCOUNTER → 2020-01-11 08:06 | Outpatient (CLI) | payer MEDICARE, OTHER, SELFPAY ==
[2020-01-11 08:02] VITALS: BMI 39.6
--- NOTE | 2020-01-11 08:07 | RAD_ITS ---
STUDY: X-RAY - CERVICAL SPINE REASON FOR EXAM: Male, 64 years old. LEFT SHOULDER PAIN AND TINGLING FINGERS TECHNIQUE: 5 view(s) of the cervical spine were obtained. COMPARISON: None FINDINGS: Normal anterior atlantoaxial articulation. Normal odontoid process. There are expected age-related changes. Normal cervical lordosis. Normal vertebral bodies and endplates. Normal disc space heights. Normal visualized intervertebral neuroforamina. The soft tissue structures are unremarkable. RAD/Cerv Spine 4 or 5 Views IMPRESSION: Unremarkable age-appropriate cervical spine. Electronically Signed: Maura Taylor, at 19:04 EDT Tel , Service support ,
--- NOTE | 2020-01-11 08:07 | RAD_ITS ---
STUDY: X-RAY - LEFT SHOULDER REASON FOR EXAM: Male, 64 years old. PAIN AND TINGLING LEFT FINGERS TECHNIQUE: 3 view(s) of the shoulder. COMPARISON: None. FINDINGS: Normal glenohumeral articulation. Normal acromioclavicular joint. Normal acromion. Normal humeral head and visualized proximal humerus. The soft tissue structures are unremarkable. There are mild expected degenerative changes. Normal visualized pulmonary apex. RAD/Shoulder min 2 Views IMPRESSION: Unremarkable for age shoulder radiography. Electronically Signed: Maura Taylor, at 19:32 EDT Tel , Service support ,
== END ==
PROVIDERS: PCP Internal Medicine; Referring Provider Orthopaedic Surgery; Visit Provider Orthopaedic Surgery
DX: M79.602 Pain in left arm (principal)
CPT/HCPCS: 72050; 73030

== ENCOUNTER 2020-01-24 09:25 | Outpatient (RCR) | payer MEDICARE, OTHER, SELFPAY ==
[2020-01-11 08:02] VITALS: BMI 39.6
== END 2020-01-24 23:59 | disposition home or self-care (01) ==
LOC: DC 09:25
PROVIDERS: PCP Internal Medicine; Visit Provider Internal Medicine
DX: Z71.3 Dietary counseling and surveillance (principal); E11.9 Type 2 diabetes mellitus without complications
CPT/HCPCS: 97803

== ENCOUNTER → 2020-07-01 07:27 | Outpatient (CLI) | payer MEDICARE, OTHER, SELFPAY ==
[2020-06-16 09:03] VITALS: BMI 42.5
--- NOTE | 2020-07-01 07:36 | ECHOD_ITS ---
Reason For Study: Murmur Procedure This was a 2D Doppler, Color Flow transthoracic echocardiogram. The study was technically difficult. Exam performed in department. Left Ventricle Normal LV size. Left ventricular systolic function is normal. The estimated ejection fraction is 65 %. Diastolic function is indeterminate. No regional wall motion abnormalities noted. Right Ventricle Normal RV size. Normal systolic function. Atria The left atrium is mildly enlarged. Normal right atrium. No doppler evidence for ASD. Mitral Valve There is moderate mitral annular calcification. Extension the mitral annular calcification on the base of the posterior mitral valve leaflet. Trivial mitral valve insufficiency. Tricuspid Valve Normal tricuspid valve. Trivial tricuspid valve insufficiency. Unable to estimate RV systolic pressure/pulmonary artery pressure due to technically difficult study. Aortic Valve Trisinus/trileaflet aortic valve. Moderate diffuse aortic valve thickening. Moderate diffuse aortic valve calcification. Mild to moderate aortic stenosis. Pulmonic Valve The pulmonic valve is not well visualized. Great Vessels Borderline to mildly dilated aortic root. Pericardium/Pleural No pericardial effusion. MMode/2D Measurements & Calculations LVIDd: 4.2 cm IVSd: 1.3 cm LVOT diam: 2.2 cm LVIDs: 2.6 cm LVPWd: 1.3 cm LVOT area: 3.9 cm2 FS: 38.5 % Ao root diam: 4.0 cm LAV(MOD-bp): 60.9 ml LA A4 area: 21.0 cm2 LA dimension: 3.5 cm LAV(MOD-bp) Indexed: 25.8 ml/m2 LAV(MOD-sp2): 58.4 ml LAV(MOD-sp4): 63.0 ml RA A4 area: 15.1 cm2 Time Measurements MV dec time: 0.29 sec Doppler Measurements & Calculations MV E max franco: 83.0 cm/sec Lat Peak E' Franco: 7.7 cm/sec Med Peak E' Franco: 6.5 cm/sec MV A max franco: 116.1 cm/sec E/E' lat: 10.7 E/E' med: 12.7 MV E/A: 0.71 MV V2 max: 137.7 cm/sec MV P1/2t max franco: 108.8 cm/sec Ao V2 max: 294.7 cm/sec MV max P.6 mmHg MV P1/2t: 78.4 msec Ao max P.8 mmHg MV V2 mean: 84.8 cm/sec MV dec slope: 406.8 cm/sec2 Ao V2 mean: 181.0 cm/sec MV mean P.2 mmHg Ao mean P.0 mmHg MV V2 VTI: 35.1 cm MVA(P1/2t): 2.8 cm2 Ao V2 VTI: 61.9 cm MVA(VTI): 2.3 cm2 AMAURY(I,D): 1.3 cm2 AMAURY(V,D): 1.1 cm2 LV V1 max: 85.6 cm/sec SV(LVOT): 80.6 ml PA V2 max: 112.7 cm/sec LV V1 max P.9 mmHg LV V1 mean P.4 mmHg LV V1 mean: 53.5 cm/sec LV V1 VTI: 20.7 cm Interpretation Summary The study was technically difficult. Left ventricular systolic function is normal. The estimated ejection fraction is 65 %. The left atrium is mildly enlarged. There is moderate mitral annular calcification. Extension the mitral annular calcification on the base of the posterior mitral valve leaflet. Trivial mitral valve insufficiency. Trivial tricuspid valve insufficiency. Mild to moderate aortic stenosis. Borderline to mildly dilated aortic root. Unable to estimate RV systolic pressure/pulmonary artery pressure due to technically difficult study. Diastolic function is indeterminate. Ordering Physician: Luis Martinez Referring Physician: Nilda Gonzalez Performed By: Bishop Medina RCS
[2020-07-01 08:58] LABS: AST(SGOT) 22 U/L (15-37); Alanine Aminotransfer ALT/SGPT 30 U/L (16-61); Albumin, Serum 3.9 g/dL (3.2-5.0); Alkaline Phosphatase 81 U/L (45-117); Bilirubin, Direct 0.13 mg/dL (0.00-0.30); Cholesterol 131 mg/dL (200); Globulin 3.7 g/dL (2.2-4.2); High Density Lipoprotein 53 mg/dL; Protein, Total 7.6 g/dL (6.4-8.2); Triglycerides 116 mg/dL; Very Low Density Lipoprotein 23 mg/dL (5-40)
== END ==
PROVIDERS: PCP Internal Medicine; Referring Provider Internal Medicine Cardiovascular Disease; Visit Provider Internal Medicine Cardiovascular Disease
DX: I25.10 Atherosclerotic heart disease of native coronary artery without angina pectoris (principal); E78.00 Pure hypercholesterolemia, unspecified
CPT/HCPCS: 36415; 80061; 80076; 93306

== ENCOUNTER 2020-07-24 06:59 | Outpatient (RCR) | payer MEDICARE, OTHER, SELFPAY ==
[2020-06-16 09:03] VITALS: BMI 42.5
[2020-07-24] MEDS: COVID-19 VACC, MRNA(PFIZER)/PF 30 MCG/0.3 ML SYRINGE IM (10:02)
[2020-08-14] MEDS: COVID-19 VACC, MRNA(PFIZER)/PF 30 MCG/0.3 ML SYRINGE IM (09:51)
== END 2020-07-24 23:59 ==
LOC: IMMUN 06:59
PROVIDERS: PCP Internal Medicine; Visit Provider Family Medicine
DX: Z23 Encounter for immunization (principal)
CPT/HCPCS: 0001A; 0002A

== ENCOUNTER 2020-08-02 21:33 | Emergency (ER) | payer MEDICARE, OTHER, SELFPAY ==
[2020-07-25 09:37] VITALS: BMI 42.3
[2020-08-02 21:33] VITALS: BP 169/86; PULSE 86; RESP 18; TEMP 36.3; O2SAT 96; BMI 43.8
--- NOTE | 2020-08-02 22:11 | ED.VIS.GEN ---
History of Present Illness Chief Complaint: Other, Pain/Inj Narrative: Patient presenting for evaluation secondary to generalized myalgias. Patient has a past history of what was thought to be rheumatoid arthritis, but he states that he now does not carry that diagnosis. He is on Plaquenil for daily control of this, and typically is well controlled. Patient had carpal tunnel surgery done on 24 June that was complicated by superficial wound dehiscence and slow healing. Patient reports that over the course of about the last 4 days he has been developing joint pain. He states that this started in his knees, and he initially went in to potentially get cortisone injections in his knees but since then it has progressed to literally every joint in his body including his neck shoulders elbows wrists hands hips knees and ankles. Patient reports that he has a moderate to severe amount of pain anytime he tries to move. He denies any fevers chills night sweats or any unintended weight loss. He has been taking tylenol at home with no relief. ROS otherwise negative. Past Medical History - Allergies and Home Meds Allergies/Adverse Reactions: Allergies No Known Allergies Allergy (Verified 08/02/20 21:36) Primary Care Physician: Nilda Gonzalez MD [Primary Care Provider] - Prior records reviewed: Yes Past Medical History: - - GERD, polyarthritis, diabetes, hypertension, hyperlipidemia, past history of paroxysmal A. fib Surgical History: angioplasty Lives: Spouse/ Significant Other Smoking Status: Former smoker Alcohol: None Drugs: None Review of Systems All systems negative except as indicated General: Denies: Chills, Fever, Sweats Eyes: Denies: Visual changes - bilaterally, Diplopia ENT: Denies: Rhinorrhea, Sore throat Cardiovascular: Denies: Chest pain, Palpitations Respiratory: Denies: Dyspnea, Cough, Dyspnea on exertion Gastrointestinal: Denies: Abdominal pain, Nausea, Vomiting, Diarrhea, Melena, Hematochezia Genitourinary: Denies: Dysuria, Hematuria, Frequency Musculoskeletal: Reports: Arthralgias, Swelling Skin: Denies: Rash, Wounds Neurological: Denies: Headache, Weakness, Numbness Physical Exam Vital Signs/Narrative: Vital Signs Temp Pulse Resp BP Pulse Ox 08/02/20 21:33 97.3 F L 86 18 169/86 H 96 Inital Vital Signs reviewed: Yes General: Well nourished, Well developed, Obese, No Acute Distress Head: Normocephalic, Atraumatic Eyes: Perrl, EOMI ENT: Moist mucous membranes, No rhinorrhea, - - No nosebleeds or discoloration of the gums Neck: Supple, Nontender Cardiovascular: Regular rate, Regular rhythm, Murmur - 2/6 systolic Respiratory: No distress, CTA bilaterally, Chest nontender Abdomen: Soft, Nontender, Nondistended, Normal bowel sounds Back: Normal Inspection Extremities: - - Patient has diffuse joint pain with range of motion. Specifically he has swelling of the right wrist with pain on range of motion and palpation. Left wrist exam shows a healing surgical wound with scabbing over the proximal two thirds. No signs of cellulitis. Skin: Normal color, No rash Neurological: Alert, Oriented x3, Cranial nerves II-XII grossly intact, Normal Strength, Normal Sensation Psychological: Normal affect, Normal Mood Diagnostic/Tx/Re-eval Laboratory Data 08/02/20 08/02/20 08/02/20 22:19 22:19 22:19 WBC 11.7 H RBC 4.46 L Hgb 13.6 Hct 41.8 MCV 93.7 MCH 30.5 MCHC 32.5 RDW Std Deviation 43.7 RDW Coeff of Jaqueline 12.8 Plt Count 238 MPV 10.2 Immature Gran % (Auto) 0.400 Neut % (Auto) 71.3 H Lymph % (Auto) 16.9 L Lamb % (Auto) 7.4 Eos % (Auto) 3.0 Baso % (Auto) 1.0 Absolute Neuts (auto) 8.3 H Absolute Lymphs (auto) 1.97 Nucleated RBC % 0 ESR 37 H PT 12.6 INR 1.0 APTT 26.2 Sodium 140 Potassium 4.2 Chloride 107 Carbon Dioxide 25.0 Anion Gap 8 BUN 20 H Creatinine 0.89 Estim Creat Clear Calc 75.30 Est GFR (MDRD) Af Amer 110 Est GFR (MDRD) Non-Af 91 BUN/Creatinine Ratio 22.5 H Glucose 147 H Calcium 9.2 Total Bilirubin 0.30 AST 12 L ALT 30 Alkaline Phosphatase 90 C-React Prot Ext Range 27.10 H Total Protein 7.3 Albumin 3.6 Globulin 3.7 Albumin/Globulin Ratio 1.0 - Medical Decision Making Patient presented secondary to generalized polyarthritis. IV was established patient was given morphine and Zofran. Laboratory studies show the patient have a very mild leukocytosis of 11, chemistry panel including liver was unremarkable. CRP was not surprisingly elevated. Glucose was reasonably well controlled. Patient had modest relief from morphine in the emergency department. Given the patient's past history of polyarthritis, I do believe that this likely is a flare as it involves most of the major joints in his body. I discussion with patient about the risks of prednisone treatments given the fact that he is a diabetic but given his level of discomfort I believe that that likely is appropriate. He will be placed on a 5-day burst. He will closely monitor his sugars at home. Patient also will be sent home with a course of Percocet for breakthrough pain control, he sees the [facility] for his polyarthritis he was recommended to obtain follow-up on Tuesday. Patient was discharged in improved condition. ED Disposition - Plan for ED Patient: Disposition: Home or Assisted Living Diagnosis: Polyarthritis Instructions: ED Rheumatoid Arthritis Prescriptions: Oxycodone HCl/Acetaminophen [Percocet 5/325] 1 tablet PO Q6H PRN PRN 3 Days #12 tablet PRN Reason: Pain Transmission Status: Received by [id number] predniSONE tablet 60 mg PO DAILY #12 tab Transmission Status: Pending to [id number] Referrals: Nilda Gonzalez MD [Primary Care Provider] - Additional Instructions: Followup with the [facility] next week
[2020-08-02] MEDS: Morphine 4 MG/ML Syringe IV (22:23)
[2020-08-02] MEDS: Ondansetron 4 MG/2 ML Vial IV (22:23)
[2020-08-02 22:26] LABS: Absolute Lymphocyte Count 1.97 X10^3/uL (0.83-4.51); Absolute Neutrophil Count 8.3 X10^3/uL (2.0-7.7); Basophil# 0.12 X10^3/uL; Eosinophil# 0.35 X10^3/uL; Hematocrit 41.8 % (40-54); Hemoglobin 13.6 g/dL (13.0-16.5); Lymphocyte # 1.97 X10^3/ul (4.0); Lymphocyte % 16.9 % (19-41); Mean Corp Hgb Conc 32.5 g/dL (32-36); Mean Corpuscular Hgb 30.5 pg (27.0-32.0); Mean Corpuscular Volume 93.7 fL (80-94); Mean Platelet Vol. 10.2 fl (6.2-12.0); Monocyte# 0.86 X10^3/uL; Monocyte% 7.4 % (0-10); NRBC Flagged by Analyzer 0 % (0-5); Neutrophil % 71.3 % (47-70); Platelet Count 238 K/mm3 (150-450); RBC Distribution Width CV 12.8 % (11.6-14.6); RBC Distribution Width SD 43.7 fl (35.1-43.9); Red Blood Count 4.46 M/mm3 (4.6-6.2); White Blood Count 11.7 K/mm3 (4.4-11.0)
[2020-08-02 22:32] LABS: Erythrocyte Sedimentation Rate 37 mm/hr (0-20)
[2020-08-02 22:34] LABS: Prothrombin Time (Protime)PT. 12.6 SECONDS (11.7-14.9)
[2020-08-02 22:35] LABS: Partial Thromboplast Time 26.2 Seconds (24.1-36.2)
[2020-08-02 22:47] LABS: AST(SGOT) 12 U/L (15-37); Alanine Aminotransfer ALT/SGPT 30 U/L (16-61); Albumin, Serum 3.6 g/dL (3.2-5.0); Alkaline Phosphatase 90 U/L (45-117); Anion Gap 8 (5-15); BUN 20 mg/dL (7-18); BUN/Creat Ratio 22.5 RATIO (10-20); Calcium,Total 9.2 mg/dL (8.5-10.1); Chloride 107 mmol/L (98-107); Creatinine, Serum 0.89 mg/dL (0.70-1.30); EST Glomerular Filtration Rate 91 mL/min (>60); Est Glom Filt Rate - Afr Amer 110 mL/min (>60); Globulin 3.7 g/dL (2.2-4.2); Glucose 147 mg/dL (74-106); Potassium 4.2 mmol/L (3.5-5.1); Protein, Total 7.3 g/dL (6.4-8.2); Sodium Level 140 mmol/L (136-145)
[2020-08-02] MEDS: predniSONE 20 MG Tablet 60 MG PO (23:14)
[2020-08-02] MEDS: oxyCODONE 5 MG Tablet 10 MG PO (23:14)
[2020-08-02 23:18] VITALS: RESP 17; O2SAT 97
== END 2020-08-02 23:19 | disposition home or self-care (01) ==
PROVIDERS: Emergency Provider Emergency Medicine; PCP Internal Medicine
DX: M13.0 Polyarthritis, unspecified (principal); I10 Essential (primary) hypertension; I48.0 Paroxysmal atrial fibrillation; E11.9 Type 2 diabetes mellitus without complications; E78.5 Hyperlipidemia, unspecified; Z87.891 Personal history of nicotine dependence; Z79.84 Long term (current) use of oral hypoglycemic drugs
CPT/HCPCS: 80053; 85025; 85610; 85652; 85730; 86140; 96374; 96375; 99284; A4216; J2405

== ENCOUNTER 2020-12-04 01:24 | Emergency (ER) | payer MEDICARE, OTHER, SELFPAY ==
[2020-11-18 08:59] VITALS: BMI 43.8
[2020-12-04 01:24] VITALS: BP 154/119; PULSE 139; RESP 16; TEMP 36.4; O2SAT 92; BMI 42.9
--- NOTE | 2020-12-04 01:30 | EKG12_ITS ---
Test Reason : CP Blood Pressure : / mmHG Vent. Rate : 146 BPM Atrial Rate : 120 BPM P-R Int : 000 ms QRS Dur : 074 ms QT Int : 292 ms P-R-T Axes : 000 -12 044 degrees QTc Int : 455 ms Atrial fibrillation with rapid ventricular response Nonspecific ST abnormality Abnormal ECG Confirmed by ALVIN RIOS, MINA ([id number]), video news editor SAMANTHA WOLFE ([id number]) on 12/05/2020 9:27:09 AM Referred By: BETHANIE Confirmed By:SHAY ESQUIVEL MD
--- NOTE | 2020-12-04 01:30 | RAD_ITS ---
STUDY: X-RAY CHEST REASON FOR EXAM: Male, 65 years old. chest pain TECHNIQUE: Single AP portable view of the chest. COMPARISON: 02/21/2018. FINDINGS: The lungs are clear and expanded. There is no demonstrated pleural abnormality. Normal size heart. Normal mediastinum and noelle. Normal visualized pulmonary arteries. Normal visualized aortic arch and descending thoracic aorta. There are diffuse degenerative changes of the visualized thoracic spine. Normal visualized ribs, clavicles, and shoulders. There is no demonstrated abnormality of the visualized soft tissue structures of the upper abdomen. RAD/Chest 1 View (Portable) IMPRESSION: No acute cardiopulmonary disease. Electronically Signed: Marisabel Cook MD at 1:48 EDT , Service support ,
[2020-12-04 01:31] VITALS: O2SAT 95
[2020-12-04] MEDS: dilTIAZem 25 MG/5 ML Vial IV BOLUS (01:33)
--- NOTE | 2020-12-04 01:33 | EDS_ITS ---
HPI History of Present Illness Chief Complaint: Palpitations Informant: patient and spouse/S.O. Onset/Context/Timing Onset: Today and Hours Activity at onset: sudden and sleep Timing: Continuous Quality: Positive for Dull Location: Substernal Current Severity: Mild Maximum Severity: Mild Associated Symptoms: Positive for Dyspnea; Negative for Nausea, Vomiting and Diaphoresis Narrative Narrative: 65-year-old male history of coronary disease with 1 stent. History of A. fib with prior cardiac ablation about 5 years ago. States about 2 weeks ago he went back in [facility]. He was doing well has been in and out of [facility]. Today he was asleep he woke up with chest pain and rapid heart rate. He is currently on no blood thinners besides an aspirin. Prior Similar Symptoms: Yes Recent Illness/Hospitalization: No CVD Risk Factors: Positive for Hypertension, Diabetes and Hypercholesterolemia PE Risk Factors: Negative for Recent Travel/Surgery, Recent Immobilization, Prior DVT or PE, Cancer and OCP + Smoking + >/=35 TAD Risk Factors: Negative for Marfan's Syndrome and Hypertension [facility] Medical History (Updated 12/04/20 @ 01:[address] Celestino Orantes MD) PAUL (acute kidney injury) Atherosclerotic heart disease of [place] coronary artery without angina pectoris BPH (benign prostatic hyperplasia) Essential hypertension GERD (gastroesophageal reflux disease) Liver disease 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, [facility]p, current use Neuropathy Paroxysmal atrial fibrillation Paroxysmal atrial flutter Presence of stent in coronary artery (~03/15/06) Pulmonary nodule Pure hypercholesterolemia Home Medications omeprazole 20 mg capsule,delayed release 20 mg PO DAILY 06/12/19 [History Last Taken Unknown] blood-glucose meter #1 ea 07/20/19 [Rx Last Taken Unknown] lancets 28 gauge #200 ea 07/20/19 [Rx Last Taken Unknown] blood sugar diagnostic #200 ea 09/24/19 [Rx Last Taken Unknown] tamsulosin 0.4 mg capsule 0.4 mg PO BID #180 cap 01/10/20 [Rx Last Taken Unknown] hydroxychloroquine 200 mg tablet 400 mg PO DAILY tab 06/16/20 [History Last Taken Unknown] losartan 25 mg tablet 25 mg PO DAILY #90 tab 07/25/20 [Rx Last Taken Unknown] metformin 1,000 mg tablet 1,000 mg PO BID #180 tab 07/25/20 [Rx Last Taken Unknown] pravastatin 80 mg tablet See Rx Instructions .ROUTE .COMPLEX #90 tab 10/14/20 [Rx Last Taken Unknown] aspirin 81 mg tablet,delayed release 162 mg PO QDAY #30 tab 11/18/20 [Rx Last Taken Unknown] meloxicam 15 mg tablet 15 mg PO DAILY 11/18/20 [History Last Taken Unknown] metoprolol succinate 50 mg tablet,extended release 24 hr 50 mg PO DAILY #90 tab 11/18/20 [Rx Last Taken Unknown] prednisone 5 mg tablet 5 mg PO BID 11/18/20 [History Last Taken Unknown] sulfasalazine 500 mg tablet 0.5 g PO DAILY 11/18/20 [History Last Taken Unknown] Allergy/AdvReac Type Severity Reaction Status Date / Time No Known Allergies Allergy Verified 12/04/20 01:28 Family History Son Diabetes Mother Myocardial infarction, Onset Age: 73 Father No problems noted. Son Diabetes Surgical History History of arthroplasty of left shoulder History of arthroplasty of right shoulder History of cardiac radiofrequency ablation (RFA) (~01/20/17) History of carpal tunnel surgery History of hand surgery History of sinus surgery Postsurgical percutaneous transluminal coronary angioplasty (PTCA) status (~03/15/06) Presence of coronary angioplasty implant and graft (~03/15/06) Social History Smoking Status: Former smoker how long ago did patient quit smokin, 2pk/day second hand exposure: Yes alcohol intake: current details: rare substance use type: does not use what type of physical activity do you participate in: none ROS ROS ED ROS Narrative Denies recent illness. Review of Systems ROS Unobtainable: Denies due to encephalopathy Constitutional Constitutional ED: Denies chills or fever(s) Eyes Eyes: Denies none ENT ENT ED: Denies ear pain or sore throat Cardiovascular Cardiovascular: Reports as per HPI, chest pain, palpitations and racing heartbeat Respiratory/Chest Respiratory/Chest: Reports dyspnea; Denies cough Gastrointestinal Gastrointestinal: Denies abdominal pain, diarrhea, nausea or vomiting Genitourinary Genitourinary ED: Denies dysuria or hematuria Musculoskeletal Musculoskeletal: Denies myalgias Integumentary Denies rash Neurologic Neurologic: Denies headache(s) Psychiatric Psychiatric: Denies depression Endocrine Endocrinology: Denies polyuria Hematologic/Lymphatic Hematologic/Lymphatic: Denies easy bruising Allergic/Immunologic Allergic/Immunologic ED: Denies urticaria EXAM Physical Exam Narrative Exam Narrative: Older male and heart rate consistent with A. fib RVR rate about 139. Otherwise vital signs stable afebrile. Lungs are clear. Heart irregular irregular rate about 138. Chest nontender. Abdomen soft nontender normal bowel sounds no peritoneal signs. Moving all 4 extremities. Calves are nontender without edema or cords. Neurologically is awake alert with no focal motor deficits. Const Vital Signs: 12/04/20 01:24 12/04/20 01:28 12/04/20 01:31 Temperature 97.6 F L Temperature Source Temporal Pulse Rate 139 H Respiratory Rate 16 Respiratory Effort Normal Non-Labored Blood Pressure 154/119 H Blood Pressure Mean 130 Pulse Ox 92 95 Oxygen Delivery Method Room Air Room Air Positive well nourished and well developed; Negative for unkempt General Appearance ED: well developed; Negative for unkempt HEENT Reports moist mucous membranes normocephalic and atraumatic; Negative for trauma or tenderness Eyes PERRL and EOMs intact bilaterally Neck no lymphadenopathy, supple and no JVD General: Negative for tenderness Chest Wall inspection of chest normal and palpation of chest normal Resp normal respiratory effort and clear to auscultation bilaterally Effort and Inspection: respiratory distress Auscultation: Negative for rales, rhonchi or wheezes Cardio no murmurs; Negative for regular rate or regular rhythm Rate: tachycardic GI normal to inspection, nondistended, normoactive bowel sounds, soft to palpation, non-tender, non-distended and no masses Auscultation: Negative for hyperactive bowel sounds Back/Spine no CVA tenderness Extremity normal to inspection General Extremety ED: Negative for edema or tenderness General Extremity: Negative for edema Neuro oriented x3 and CN's II-XII intact bilaterally Sensorium / Orientation: awake, alert, oriented to person, oriented to place and oriented to time Motor Exam: strength 5/5 throughout Psych mental status grossly normal Appearance: Negative for unkempt Skin no rashes or lesions noted and no wounds Heart Score History: Moderately Suspicious ECG: Normal Age: >/= 65 years Risk Factors: >/= 3 Risk Factors or History of CAD Troponin: </= Normal Limit Score: 5 MDM MDM MDM Narrative Medical decision making narrative: 65-year-old male recurrent A. fib with prior history. Prior cardiac ablation. Currently on aspirin only. Patient presents in A. fib RVR rate at almost 140. He took a dose of metoprolol prior to arrival. He will be treated with IV Cardizem with a cardiac work-up and most likely admission. Repeat exam at 1:52 AM patient is doing well. Heart rate is currently in the 90s after is initial dose of Cardizem. Patient doing well at 2:38 AM. Heart rate in the 90s. He does not want to be admitted overnight. He wants to follow-up as an outpatient. He understands that if his heart rate becomes accelerated again, if he is feeling worse or develops recurrent chest pain he will return. Lab Data Attestation: I reviewed the patient's lab results. Lab results narrative: White count of 10. Hemoglobin 14. Electrolytes unremarkable. Gap of 10. Creatinine 0.8. Glucose 213. High-sensitivity troponin 10. Labs: Laboratory Results - last 24 hr 12/04/20 12/04/20 12/04/20 01:30 01:30 01:30 WBC 10.5 RBC 4.60 Hgb 14.9 Hct 45.0 MCV 97.8 H MCH 32.4 H MCHC 33.1 RDW Std Deviation 50.0 H RDW Coeff of Jaqueline 13.9 Plt Count 217 MPV 10.4 Immature Gran % (Auto) 0.900 Neut % (Auto) 74.8 H Lymph % (Auto) 14.1 L Mills % (Auto) 7.7 Eos % (Auto) 1.6 Baso % (Auto) 0.9 Absolute Neuts (auto) 7.8 H Absolute Lymphs (auto) 1.47 Nucleated RBC % 0 PT 12.3 INR 1.0 Sodium 139 Potassium 4.2 Chloride 104 Carbon Dioxide 25.0 Anion Gap 10 BUN 25 H Creatinine 0.88 Estim Creat Clear Calc 78.81 Est GFR (MDRD) Af Amer 111 Est GFR (MDRD) Non-Af 92 BUN/Creatinine Ratio 28.4 H Glucose 213 H Calcium 9.2 Troponin I High Sens 10.7 Radiography Chest X-Ray - ED: 1 View, Read by ED Physician, Heart, Lungs, Mediastinum, Bony Structures, No Acute Disease and Chronic Changes Diagnostic Testing: Radiology Impression Chest X-Ray 12/04/20 01:30 IMPRESSION: No acute cardiopulmonary disease. Electronically Signed: Marisabel Cook MD at 1:48 EDT , Service support , Rhythm Strip Rhythm Strip: A-fib Rate: 146 Ectopy: None EKG Initial EKG: Attestation: I personally reviewed and interpreted this EKG as follows: Interpretation: No Acute Injury Pattern and Atrial Fibrillation Comments: Atrial fibrillation with rapid ventricular rate of 146. No signs of acute [place]. Similar to prior EKG from July 2018. Prior: Unchanged Follow-up EKG: Attestation: I personally reviewed and interpreted this EKG as follows: Interpretation: Atrial Fibrillation Comments: Repeat EKG patient remained in atrial fibrillation but now his rate was down to 96 after he was given the IV medication. Prior EKG tracings: available for review Prior: Unchanged Discharge Plan Triage Chief Complaint: Palpitations ED Provider: Celestino Orantes Dx/Rx/DC Orders Clinical Impression: Atrial fibrillation with rapid ventricular response, History of acquired heart disease Prescriptions: No Action omeprazole 20 mg capsule,delayed release(DR/EC) 20 mg PO DAILY RF: 0 (DME) lancets [FreeStyle Lancets] 28 gauge misc See Rx Instructions .ROUTE .MEDSUPPLY Qty: 200 RF: 3 (DME) blood-glucose meter [FreeStyle Lite Meter] Kit See Rx Instructions .ROUTE .MEDSUPPLY Qty: 1 RF: 0 hydroxychloroquine 200 mg tablet 400 mg PO DAILY RF: 0 meloxicam 15 mg tablet 15 mg PO DAILY RF: 0 sulfasalazine 500 mg tablet 0.5 g PO DAILY RF: 0 prednisone 5 mg tablet 5 mg PO BID RF: 0 aspirin [Adult Aspirin Regimen] 81 mg tablet,delayed release (DR/EC) 162 mg PO QDAY Qty: 30 RF: 0 metoprolol succinate 50 mg tablet extended release 24 hr 50 mg PO DAILY Qty: 90 RF: 3 (DME) FreeStyle Lite Strips Strip See Rx Instructions .ROUTE .MEDSUPPLY Qty: 200 RF: 3 tamsulosin 0.4 mg capsule 0.4 mg PO BID Qty: 180 RF: 3 losartan 25 mg tablet 25 mg PO DAILY Qty: 90 RF: 3 metformin 1,000 mg tablet 1,000 mg PO BID Qty: 180 RF: 3 pravastatin 80 mg tablet See Rx Instructions .ROUTE .COMPLEX Qty: 90 RF: 3 Primary Care Provider: Nilda Gonzalez Referrals: Nilda Gonzalez MD [Primary Care Provider] - Luis Martinez MD [STAFF PHYSICIAN] - As soon as possible (Call his office later today and see if you get an appointment within the next week or so.) Activity Restrictions/Additional Instructions: Continue your current medications as prescribed. If you are feeling worse, you have accelerated heart rate for prolonged period of time or you develop recurrent chest pain return emergency department to be reevaluated. Call Dr. Luis Martinez's office later today and discuss with him getting an a ppointment within the next week. Disposition Disposition: Home, Self Care
[2020-12-04 01:40] LABS: Absolute Lymphocyte Count 1.47 X10^3/uL (0.83-4.51); Absolute Neutrophil Count 7.8 X10^3/uL (2.0-7.7); Basophil# 0.09 X10^3/uL; Basophil% 0.9 % (0-1); Eosinophil# 0.17 X10^3/uL; Eosinophils% 1.6 % (0-5); Hemoglobin 14.9 g/dL (13.0-16.5); Lymphocyte # 1.47 X10^3/ul (0.83-4.51); Lymphocyte % 14.1 % (19-41); Mean Corp Hgb Conc 33.1 g/dL (32-36); Mean Corpuscular Hgb 32.4 pg (27.0-32.0); Mean Corpuscular Volume 97.8 fL (80-94); Mean Platelet Vol. 10.4 fl (6.2-12.0); Monocyte# 0.81 X10^3/uL; Monocyte% 7.7 % (0-10); NRBC Flagged by Analyzer 0 % (0-5); Neutrophil # 7.83 X10^3/uL (2.7-7.7); Neutrophil % 74.8 % (47-70); Platelet Count 217 K/mm3 (150-450); RBC Distribution Width CV 13.9 % (11.6-14.6); White Blood Count 10.5 K/mm3 (4.4-11.0)
[2020-12-04 01:53] LABS: Prothrombin Time (Protime)PT. 12.3 SECONDS (11.7-14.9)
--- NOTE | 2020-12-04 01:55 | EKG12_ITS ---
Test Reason : REPEAT CP Blood Pressure : / mmHG Vent. Rate : 096 BPM Atrial Rate : 416 BPM P-R Int : 000 ms QRS Dur : 078 ms QT Int : 314 ms P-R-T Axes : 000 -14 026 degrees QTc Int : 396 ms Atrial fibrillation Abnormal ECG Confirmed by ALVIN RIOS, MINA ([id number]), business editor SAMANTHA WOLFE ([id number]) on 12/05/2020 9:27:26 AM Referred By: BETHANIE Confirmed By:SHAY ESQUIVEL MD
[2020-12-04 02:02] LABS: Anion Gap 10 (5-15); BUN 25 mg/dL (7-18); BUN/Creat Ratio 28.4 RATIO (10-20); Calcium,Total 9.2 mg/dL (8.5-10.1); Chloride 104 mmol/L (98-107); Creatinine, Serum 0.88 mg/dL (0.70-1.30); EST Glomerular Filtration Rate 92 mL/min (>60); Est Glom Filt Rate - Afr Amer 111 mL/min (>60); Estimated Creatinine Clearance 78.81 ml/min; Glucose 213 mg/dL (74-106); Potassium 4.2 mmol/L (3.5-5.1); Sodium Level 139 mmol/L (136-145); Troponin-I HS 10.7 pg/mL (3.0-78.5)
[2020-12-04 02:16] VITALS: BP 138/81; PULSE 96; RESP 19; O2SAT 95
[2020-12-04 02:45] VITALS: BP 138/81; PULSE 87; RESP 16; O2SAT 95
== END 2020-12-04 02:46 | disposition home or self-care (01) ==
PROVIDERS: Emergency Provider Emergency Medicine; PCP Internal Medicine
DX: I48.0 Paroxysmal atrial fibrillation (principal); I25.10 Atherosclerotic heart disease of native coronary artery without angina pectoris; I10 Essential (primary) hypertension; E78.00 Pure hypercholesterolemia, unspecified; E11.40 Type 2 diabetes mellitus with diabetic neuropathy, unspecified; N17.9 Acute kidney failure, unspecified; K21.9 Gastro-esophageal reflux disease without esophagitis; Z95.5 Presence of coronary angioplasty implant and graft; Z79.82 Long term (current) use of aspirin; Z79.84 Long term (current) use of oral hypoglycemic drugs; Z79.899 Other long term (current) drug therapy; Z87.891 Personal history of nicotine dependence
CPT/HCPCS: 71045; 80048; 84484; 85025; 85610; 93005; 96374; 99284; A4216

== ENCOUNTER 2021-01-01 07:22 | Emergency (ER) | payer MEDICARE, OTHER, SELFPAY ==
[2020-12-10 13:21] VITALS: BMI 42.3
[2021-01-01 07:23] VITALS: BP 105/80; PULSE 94; RESP 14; TEMP 36.3; O2SAT 97; BMI 41.8
[2021-01-01] MEDS: oxyCODONE 5 MG Tablet PO (09:02)
[2021-01-01] MEDS: predniSONE 20 MG Tablet 60 MG PO (09:03)
[2021-01-01 09:08] LABS: Erythrocyte Sedimentation Rate 16 mm/hr (0-20)
[2021-01-01 09:10] LABS: Absolute Lymphocyte Count 1.46 X10^3/uL (0.83-4.51); Absolute Neutrophil Count 7.7 X10^3/uL (2.0-7.7); Basophil# 0.09 X10^3/uL; Basophil% 0.8 % (0-1); Eosinophil# 0.38 X10^3/uL; Eosinophils% 3.6 % (0-5); Hematocrit 42.8 % (40-54); Hemoglobin 13.8 g/dL (13.0-16.5); Lymphocyte # 1.46 X10^3/ul (0.83-4.51); Lymphocyte % 13.8 % (19-41); Mean Corp Hgb Conc 32.2 g/dL (32-36); Mean Corpuscular Hgb 32.2 pg (27.0-32.0); Mean Corpuscular Volume 99.8 fL (80-94); Mean Platelet Vol. 10.2 fl (6.2-12.0); Monocyte# 0.93 X10^3/uL; Monocyte% 8.8 % (0-10); NRBC Flagged by Analyzer 0 % (0-5); Neutrophil # 7.67 X10^3/uL (2.7-7.7); Neutrophil % 72.4 % (47-70); Platelet Count 217 K/mm3 (150-450); RBC Distribution Width SD 47.8 fl (35.1-43.9); Red Blood Count 4.29 M/mm3 (4.6-6.2); White Blood Count 10.6 K/mm3 (4.4-11.0)
[2021-01-01 09:20] LABS: Anion Gap 9 (5-15); BUN 22 mg/dL (7-18); BUN/Creat Ratio 26.3 RATIO (10-20); Calcium,Total 9.2 mg/dL (8.5-10.1); Chloride 104 mmol/L (98-107); Creatinine, Serum 0.84 mg/dL (0.70-1.30); EST Glomerular Filtration Rate 97 mL/min (>60); Est Glom Filt Rate - Afr Amer 118 mL/min (>60); Estimated Creatinine Clearance 82.56 ml/min; Glucose 169 mg/dL (74-106); Sodium Level 139 mmol/L (136-145); Troponin-I HS 7.7 pg/mL (3.0-78.5)
[2021-01-01] MEDS: Morphine 4 MG/ML Syringe IV (09:59)
--- NOTE | 2021-01-01 10:40 | EX.ED.DYSGE1 ---
HPI History of Present Illness Chief Complaint: Other, Pain/Inj Informant: patient Onset/Context/Timing Onset: Weeks (1) Context: Gradual Onset Timing: Continuous Quality: Aching Location: Jaw, shoulders, hands, elbows, ankles, feet Worsened by: Movement Relieved by: Nothing Narrative Narrative: Patient presents with flareup of his rheumatoid arthritis that has been getting worse over the past week. Patient describes the pain as aching. Patient states the pain is over his jaw, shoulders, hands, elbows, ankles, and feet. Patient states he finished a course of prednisone yesterday and the pain became worse today. Patient states his pain is worse with certain movements. Patient states nothing makes it better. Patient states that since he has been on the prednisone his blood sugars have been elevated and his vision becomes blurry because of that. Patient denies any other symptoms. Patient denies any chest pain or shortness of breath. [facility] Medical History PAUL (acute kidney injury) Atherosclerotic heart disease of [place] coronary artery without angina pectoris BPH (benign prostatic hyperplasia) Diabetes Essential hypertension GERD (gastroesophageal reflux disease) Hyperlipidemia Hypertension Liver disease 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, [facility], current use Neuropathy Paroxysmal atrial fibrillation Paroxysmal atrial flutter Presence of stent in coronary artery (~03/15/06) Pulmonary nodule Pure hypercholesterolemia Home Medications omeprazole 20 mg capsule,delayed release 20 mg PO DAILY 06/12/19 [History Last Taken Unknown] blood-glucose meter #1 ea 07/20/19 [Rx Last Taken Unknown] lancets 28 gauge #200 ea 07/20/19 [Rx Last Taken Unknown] blood sugar diagnostic #200 ea 09/24/19 [Rx Last Taken Unknown] tamsulosin 0.4 mg capsule 0.4 mg PO BID #180 cap 01/10/20 [Rx Last Taken Unknown] hydroxychloroquine 200 mg tablet 400 mg PO DAILY tab 06/16/20 [History Last Taken Unknown] losartan 25 mg tablet 25 mg PO DAILY #90 tab 07/25/20 [Rx Last Taken Unknown] metformin 1,000 mg tablet 1,000 mg PO BID #180 tab 07/25/20 [Rx Last Taken Unknown] pravastatin 80 mg tablet See Rx Instructions .ROUTE .COMPLEX #90 tab 10/14/20 [Rx Last Taken Unknown] aspirin 81 mg tablet,delayed release 162 mg PO QDAY #30 tab 11/18/20 [Rx Last Taken Unknown] meloxicam 15 mg tablet 15 mg PO DAILY 11/18/20 [History Last Taken Unknown] metoprolol succinate 50 mg tablet,extended release 24 hr 50 mg PO DAILY #90 tab 11/18/20 [Rx Last Taken Unknown] sulfasalazine 500 mg tablet 0.5 g PO DAILY 11/18/20 [History Last Taken Unknown] apixaban 5 mg tablet 5 mg PO BID #180 tab 12/10/20 [Rx Last Taken Unknown] prednisone 5 mg tablet 5 mg PO BID 12/10/20 [History Last Taken Unknown] oxycodone-acetaminophen 1 tab PO Q6H PRN PRN 3 Days #12 tablet 01/01/21 [Rx Last Taken Unknown] prednisone 10 mg PO DAILY #63 tab 01/01/21 [Rx Last Taken Unknown] Allergy/AdvReac Type Severity Reaction Status Date / Time No Known Allergies Allergy Verified 01/01/21 07:26 Family History Son Diabetes Mother Myocardial infarction, Onset Age: 73 Father No problems noted. Son Diabetes Surgical History History of arthroplasty of left shoulder History of arthroplasty of right shoulder History of cardiac radiofrequency ablation (RFA) (~01/20/17) History of carpal tunnel surgery History of hand surgery History of sinus surgery Postsurgical percutaneous transluminal coronary angioplasty (PTCA) status (~03/15/06) Presence of coronary angioplasty implant and graft (~03/15/06) Social History Smoking Status: Former smoker how long ago did patient quit smokin, 2pk/day second hand exposure: Yes alcohol intake: current details: rare substance use type: does not use what type of physical activity do you participate in: none ROS ROS ED Constitutional Constitutional ED: Denies chills or fever(s) Eyes Eyes: Reports blurry vision; Denies diplopia ENT ENT ED: Denies rhinorrhea or sore throat Cardiovascular Cardiovascular: Denies chest pain or palpitations Respiratory/Chest Respiratory/Chest: Denies cough or dyspnea Gastrointestinal Gastrointestinal: Denies nausea or vomiting Genitourinary Genitourinary ED: Denies dysuria or hematuria Musculoskeletal Musculoskeletal: Reports arthralgias, back pain and neck pain Integumentary Denies abscess or rash Neurologic Neurologic: Denies headache(s) or weakness Allergic/Immunologic Allergic/Immunologic ED: Denies mouth swelling or urticaria EXAM Physical Exam Const Vital Signs: 01/01/21 07:23 01/01/21 08:19 Temperature 97.3 F L Temperature Source Temporal Pulse Rate 94 Respiratory Rate 14 Respiratory Effort Normal Non-Labored Respiratory Pattern Normal Blood Pressure 105/80 Blood Pressure Mean 88 Pulse Ox 97 Oxygen Delivery Method Room Air Positive well nourished, well developed and obese General Appearance ED: well developed Nutritional Appearance: obese HEENT Reports moist mucous membranes Neck supple and no JVD Resp normal respiratory effort and clear to auscultation bilaterally Cardio regular rate and regular rhythm GI normal to inspection, nondistended, normoactive bowel sounds and non-tender Palpation: soft Extremity Extremity Narrative: Nurse over the hands, elbows, shoulders, ankles, feet, and knees bilaterally. There is some mild edema. There is no deformity noted. Range of motion was limited in all motions secondary to pain. There are no sensory deficits noted. Neuro oriented x3, CN's II-XII intact bilaterally and no sensory deficits noted Sensorium / Orientation: alert Motor Exam: strength 5/5 throughout Psych mental status grossly normal MDM MDM MDM Narrative Medical decision making narrative: CBC was within normal limits. Basic metabolic profile was within normal limits. High-sensitivity troponin was normal. Sed rate was normal. C-reactive protein was elevated. Patient was given a dose of Percocet and prednisone here. Patient was still having some pain on reevaluation. Patient was given a dose of morphine. Patient was given prescriptions for Percocet and prednisone. Patient was instructed to follow-up with his accounting systems manager as scheduled. Patient was also instructed to follow-up with his primary care physician in 7 to 10 days. Patient understood and was agreeable with the plan. All questions were answered. Lab Data Attestation: I reviewed the patient's lab results. Labs: Laboratory Results - last 24 hr 01/01/21 01/01/21 08:57 08:57 WBC 10.6 RBC 4.29 L Hgb 13.8 Hct 42.8 MCV 99.8 H MCH 32.2 H MCHC 32.2 RDW Std Deviation 47.8 H RDW Coeff of Jaqueline 13.0 Plt Count 217 MPV 10.2 Immature Gran % (Auto) 0.600 Neut % (Auto) 72.4 H Lymph % (Auto) 13.8 L Gage % (Auto) 8.8 Eos % (Auto) 3.6 Baso % (Auto) 0.8 Absolute Neuts (auto) 7.7 Absolute Lymphs (auto) 1.46 Nucleated RBC % 0 ESR 16 Sodium 139 Potassium 4.0 Chloride 104 Carbon Dioxide 26.0 Anion Gap 9 BUN 22 H Creatinine 0.84 Estim Creat Clear Calc 82.56 Est GFR (MDRD) Af Amer 118 Est GFR (MDRD) Non-Af 97 BUN/Creatinine Ratio 26.3 H Glucose 169 H Calcium 9.2 Troponin I High Sens 7.7 C-React Prot Ext Range 69.50 H Discharge Plan Triage Chief Complaint: Other, Pain/Inj ED Provider: Joaquín Caballero Dx/Rx/DC Orders Prescriptions: New prednisone 10 MG tablet 10 mg PO DAILY Qty: 63 RF: 0 oxycodone-acetaminophen [oxycodone-acetaminophen] 1 TABLET tablet 1 tab PO Q6H PRN PRN (Reason: Pain) 3 Days Qty: 12 RF: 0 No Action omeprazole 20 mg capsule,delayed release(DR/EC) 20 mg PO DAILY RF: 0 (DME) lancets [FreeStyle Lancets] 28 gauge misc See Rx Instructions .ROUTE .MEDSUPPLY Qty: 200 RF: 3 (DME) blood-glucose meter [FreeStyle Lite Meter] Kit See Rx Instructions .ROUTE .MEDSUPPLY Qty: 1 RF: 0 hydroxychloroquine 200 mg tablet 400 mg PO DAILY RF: 0 meloxicam 15 mg tablet 15 mg PO DAILY RF: 0 sulfasalazine 500 mg tablet 0.5 g PO DAILY RF: 0 aspirin [Adult Aspirin Regimen] 81 mg tablet,delayed release (DR/EC) 162 mg PO QDAY Qty: 30 RF: 0 metoprolol succinate 50 mg tablet extended release 24 hr 50 mg PO DAILY Qty: 90 RF: 3 prednisone 5 mg tablet 5 mg PO BID RF: 0 Eliquis 5 mg tablet 5 mg PO BID Qty: 180 RF: 3 (DME) FreeStyle Lite Strips Strip See Rx Instructions .ROUTE .MEDSUPPLY Qty: 200 RF: 3 tamsulosin 0.4 mg capsule 0.4 mg PO BID Qty: 180 RF: 3 losartan 25 mg tablet 25 mg PO DAILY Qty: 90 RF: 3 metformin 1,000 mg tablet 1,000 mg PO BID Qty: 180 RF: 3 pravastatin 80 mg tablet See Rx Instructions .ROUTE .COMPLEX Qty: 90 RF: 3 Primary Care Provider: Nilda Gonzalez Referrals: Nilda Gonzalez MD [Primary Care Provider] - 1-2 Weeks Activity Restrictions/Additional Instructions: Follow-up with your accounting systems manager as scheduled. Disposition Disposition: Home, Self Care
== END 2021-01-01 11:10 | disposition home or self-care (01) ==
PROVIDERS: Emergency Provider Emergency Medicine; PCP Internal Medicine
DX: M06.9 Rheumatoid arthritis, unspecified (principal); I25.10 Atherosclerotic heart disease of native coronary artery without angina pectoris; I48.0 Paroxysmal atrial fibrillation; I48.92 Unspecified atrial flutter; I10 Essential (primary) hypertension; E11.40 Type 2 diabetes mellitus with diabetic neuropathy, unspecified; E78.00 Pure hypercholesterolemia, unspecified; K21.9 Gastro-esophageal reflux disease without esophagitis; E66.9 Obesity, unspecified; Z68.41 Body mass index [BMI] 40.0-44.9, adult; Z95.5 Presence of coronary angioplasty implant and graft; Z79.82 Long term (current) use of aspirin; Z79.01 Long term (current) use of anticoagulants; Z79.84 Long term (current) use of oral hypoglycemic drugs; Z79.899 Other long term (current) drug therapy; Z87.891 Personal history of nicotine dependence
CPT/HCPCS: 80048; 84484; 85025; 85652; 86140; 96374; 99284; A4216

== ENCOUNTER → 2021-01-19 09:54 | Outpatient (CLI) | payer MEDICARE, OTHER, SELFPAY ==
[2021-01-19 12:26] LABS: AST(SGOT) 18 U/L (15-37); Alanine Aminotransfer ALT/SGPT 49 U/L (16-61); Albumin, Serum 3.8 g/dL (3.2-5.0); Alkaline Phosphatase 73 U/L (45-117); Anion Gap 6 (5-15); BUN 26 mg/dL (7-18); BUN/Creat Ratio 30.3 RATIO (10-20); Bilirubin, Direct 0.11 mg/dL (0.00-0.30); Calcium,Total 9.5 mg/dL (8.5-10.1); Chloride 103 mmol/L (98-107); Cholesterol 154 mg/dL (200); Creatinine, Serum 0.86 mg/dL (0.70-1.30); EST Glomerular Filtration Rate 94 mL/min (>60); Est Glom Filt Rate - Afr Amer 114 mL/min (>60); Globulin 3.6 g/dL (2.2-4.2); Glucose 193 mg/dL (74-106); High Density Lipoprotein 58 mg/dL; Potassium 4.4 mmol/L (3.5-5.1); Protein, Total 7.4 g/dL (6.4-8.2); Sodium Level 135 mmol/L (136-145); Triglycerides 113 mg/dL; Very Low Density Lipoprotein 23 mg/dL (5-40)
[2021-01-19 12:42] LABS: Hemoglobin A1c 7.6 % (3.8-5.6)
== END ==
PROVIDERS: PCP Internal Medicine; Visit Provider Internal Medicine Cardiovascular Disease
DX: E78.00 Pure hypercholesterolemia, unspecified (principal); E11.9 Type 2 diabetes mellitus without complications
CPT/HCPCS: 36415; 80048; 80061; 80076; 83036

== ENCOUNTER → 2021-02-26 11:49 | Outpatient (CLI) | payer MEDICARE, OTHER, SELFPAY ==
[2021-02-26 15:12] LABS: Anion Gap 8 (5-15); BUN 18 mg/dL (7-18); BUN/Creat Ratio 19.6 RATIO (10-20); Calcium,Total 9.5 mg/dL (8.5-10.1); Chloride 105 mmol/L (98-107); Cholesterol 148 mg/dL (200); Creatinine, Serum 0.92 mg/dL (0.70-1.30); EST Glomerular Filtration Rate 87 mL/min (>60); Est Glom Filt Rate - Afr Amer 106 mL/min (>60); Glucose 98 mg/dL (74-106); High Density Lipoprotein 59 mg/dL; PSA,Total - Annual Screen 0.84 ng/mL (0.00-4.00); Potassium 4.3 mmol/L (3.5-5.1); Sodium Level 141 mmol/L (136-145); Triglycerides 124 mg/dL; Very Low Density Lipoprotein 25 mg/dL (5-40)
== END ==
PROVIDERS: PCP Family Medicine; Referring Provider Family Medicine; Visit Provider Family Medicine
DX: E11.9 Type 2 diabetes mellitus without complications (principal); N40.0 Benign prostatic hyperplasia without lower urinary tract symptoms; Z12.5 Encounter for screening for malignant neoplasm of prostate
CPT/HCPCS: 36415; 80048; 80061; 83036; 84153; G0103

== ENCOUNTER 2021-04-24 03:59 | Emergency (ER) | payer MEDICARE, OTHER, SELFPAY ==
[2021-04-24 04:00] VITALS: PULSE 99; RESP 24; TEMP 36; O2SAT 95; BMI 44.6
[2021-04-24 04:03] VITALS: BP 170/83
--- NOTE | 2021-04-24 04:18 | EKG12_ITS ---
Test Reason : SOB Blood Pressure : / mmHG Vent. Rate : 079 BPM Atrial Rate : 079 BPM P-R Int : 148 ms QRS Dur : 082 ms QT Int : 390 ms P-R-T Axes : 025 -22 038 degrees QTc Int : 447 ms Normal sinus rhythm Normal ECG Confirmed by ALVIN RIOS, MINA ([id number]), editorial manager SAMANTHA WOLFE ([id number]) on 04/27/2021 9:12:26 AM Referred By: ROBERT Confirmed By:SHAY ESQUIVEL MD
--- NOTE | 2021-04-24 04:24 | EDS_ITS ---
HPI History of Present Illness Chief Complaint: Shortness of Breath Narrative Narrative: Patient is a 65-year-old male who states 2 to 3 years ago he had bilateral pneumonia. He states this led to respiratory failure where he needed to be intubated and placed in a medically induced coma. He does report a history of COPD but states he quit smoking in 2005. He reports that he is vaccinated against Covid but over the past 7 days has had increased cough congestion drainage. He states he feels like his symptoms are worsening he is concerned that he has pneumonia once again and therefore comes in for evaluation [facility] Medical History PAUL (acute kidney injury) Atherosclerotic heart disease of [place] coronary artery without angina pectoris BPH (benign prostatic hyperplasia) Diabetes Essential hypertension GERD (gastroesophageal reflux disease) Hyperlipidemia Hypertension Liver disease 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, long-term, current use Neuropathy Paroxysmal atrial fibrillation Paroxysmal atrial flutter Presence of stent in coronary artery (~03/15/06) Pulmonary nodule Pure hypercholesterolemia Home Medications omeprazole 20 mg capsule,delayed release 20 mg PO DAILY 06/12/19 [History Last Taken Unknown] blood-glucose meter #1 ea 07/20/19 [Rx Last Taken Unknown] lancets 28 gauge #200 ea 07/20/19 [Rx Last Taken Unknown] blood sugar diagnostic #200 ea 09/24/19 [Rx Last Taken Unknown] hydroxychloroquine 200 mg tablet 400 mg PO DAILY tab 06/16/20 [History Last Taken Unknown] losartan 25 mg tablet 25 mg PO DAILY #90 tab 07/25/20 [Rx Last Taken Unknown] metformin 1,000 mg tablet 1,000 mg PO BID #180 tab 07/25/20 [Rx Last Taken Unknown] pravastatin 80 mg tablet See Rx Instructions .ROUTE .COMPLEX #90 tab 10/14/20 [Rx Last Taken Unknown] metoprolol succinate 50 mg tablet,extended release 24 hr 50 mg PO DAILY #90 tab 11/18/20 [Rx Last Taken Unknown] aspirin 81 mg tablet,delayed release 81 mg PO QDAY tab 01/19/21 [History Last Taken Unknown] glimepiride 2 mg tablet 2 mg PO BID #60 tab 01/19/21 [Rx Last Taken Unknown] tamsulosin 0.4 mg capsule 0.4 mg PO BID #180 cap 01/19/21 [Rx Last Taken Unk nown] prednisone 5 mg tablet 15 mg PO BID tab 03/30/21 [History Last Taken Unknown] sulfasalazine 500 mg tablet 1 g PO BID tab 03/30/21 [History Last Taken Unknown] albuterol sulfate [Ventolin HFA] 1 - 2 puff INHALATION Q4H PRN PRN #1 device 04/24/21 [Rx Last Taken Unknown] benzonatate 200 mg PO TID PRN #60 cap 04/24/21 [Rx Last Taken Unknown] ipratropium-albuterol 3 ml INHALATION Q6H PRN #90 ml 04/24/21 [Rx Last Taken Unknown] nebulizer and compressor #1 ea 04/24/21 [Rx Last Taken Unknown] oxybutynin chloride 30 mg PO DAILY 04/24/21 [History Last Taken Unknown] prednisone 40 mg PO DAILY 5 Days #10 tab 04/24/21 [Rx Last Taken Unknown] Allergy/AdvReac Type Severity Reaction Status Date / Time No Known Allergies Allergy Verified 04/24/21 04:03 Family History Son Diabetes Mother Myocardial infarction, Onset Age: 73 Father No problems noted. Son Diabetes Surgical History History of arthroplasty of left shoulder History of arthroplasty of right shoulder History of cardiac radiofrequency ablation (RFA) (~01/20/17) History of carpal tunnel surgery History of hand surgery History of sinus surgery Postsurgical percutaneous transluminal coronary angioplasty (PTCA) status (~03/15/06) Presence of coronary angioplasty implant and graft (~03/15/06) Social History Smoking Status: Former smoker how long ago did patient quit smokin, 2pk/day second hand exposure: Yes alcohol intake: current details: rare substance use type: does not use what type of physical activity do you participate in: none ROS ROS ED Constitutional Constitutional ED: Denies chills or fever(s) ENT ENT ED: Reports rhinorrhea and sore throat Cardiovascular Cardiovascular: Denies chest pain Respiratory/Chest Respiratory/Chest: Reports cough, dyspnea and sputum Gastrointestinal Gastrointestinal: Denies abdominal pain, diarrhea, nausea or vomiting Genitourinary Genitourinary ED: Denies dysuria Musculoskeletal Musculoskeletal: Denies myalgias Integumentary Denies rash Neurologic Neurologic: Denies headache(s) Hematologic/Lymphatic Hematologic/Lymphatic: Denies easy bleeding or easy bruising EXAM Physical Exam Const Vital Signs: 04/24/21 04:00 04/24/21 04:03 04/24/21 04:08 Temperature 96.8 F L Temperature Source Oral Pulse Rate 99 Respiratory Rate 24 H Respiratory Effort Normal Respiratory Pattern Blood Pressure 170/83 H Blood Pressure Mean 112 Pulse Ox 95 Oxygen Delivery Method Room Air 04/24/21 05:01 Temperature Temperature Source Pulse Rate 75 Respiratory Rate 15 Respiratory Effort Respiratory Pattern Normal Blood Pressure Blood Pressure Mean Pulse Ox Oxygen Delivery Method Positive well nourished, well developed and obese General Appearance ED: well developed Nutritional Appearance: obese HEENT Reports moist mucous membranes HEENT Narrative: Cobblestoning the posterior pharynx consistent with sinus drainage but no airway edema or compromise Eyes PERRL and EOMs intact bilaterally Neck supple and no JVD Resp normal respiratory effort Resp Narrative: Breath sounds are diminished throughout with diffuse expiratory wheeze and rhonchi in the bilateral bases Cardio regular rate and regular rhythm Rate: other Other Details: Radial pulses are +2-4 bilaterally are equal and symmetric GI normal to inspection, nondistended, normoactive bowel sounds, non-tender, non- distended and no masses GI Narrative: No voluntary guarding or rigidity no pulsatile mass or fluid wave Auscultation: normoactive bowel sounds Palpation: soft Extremity Extremity Narrative: +1-2 pitting edema to the bilateral lower extremities that are equal and symmetric Neuro oriented x3 and CN's II-XII intact bilaterally Sensorium / Orientation: alert Motor Exam: strength 5/5 throughout Psych mental status grossly normal Skin no rashes or lesions noted MDM MDM MDM Narrative Medical decision making narrative: Patient presented to the ER in no acute respiratory distress satting in the mid 90s on room air. He did have diffuse rhonchi throughout concerning for underlying infection and therefore elected to perform basic labs chest x-ray and Covid swab. Labs revealed no clinically significant findings. Covid test was negative and chest x-ray revealed chronic findings without infiltrate pneumothorax or pleural effusion. Patient was given steroids and breathing medication and did have improvement of his breath sounds are reported feeling better. Therefore at this time as work-up shows no acute findings and he has no need for supplemental oxygen I do not feel he needs to be placed in the hospital and can be placed on symptomatic medications and discharged home Lab Data Attestation: I reviewed the patient's lab results. Labs: Laboratory Results - last 24 hr 04/24/21 04/24/21 04/24/21 04:05 04:05 04:05 WBC 8.8 RBC 4.61 Hgb 15.6 Hct 46.9 MCV 101.7 H MCH 33.8 H MCHC 33.3 RDW Std Deviation 51.6 H RDW Coeff of Jaqueline 13.7 Plt Count 222 MPV 10.8 Immature Gran % (Auto) 0.700 Neut % (Auto) 59.0 Lymph % (Auto) 22.8 [place] % (Auto) 14.0 H Eos % (Auto) 2.4 Baso % (Auto) 1.1 H Absolute Neuts (auto) 5.2 Absolute Lymphs (auto) 2.00 Nucleated RBC % 0 Sodium 140 Potassium 4.0 Chloride 105 Carbon Dioxide 28.0 Anion Gap 7 BUN 16 Creatinine 0.95 Estim Creat Clear Calc 70.55 Est GFR (MDRD) Af Amer 102 Est GFR (MDRD) Non-Af 84 BUN/Creatinine Ratio 16.9 Glucose 79 Calcium 9.2 Magnesium 1.9 Troponin I High Sens 11 B-Natriuretic Peptide 28.2 Radiography Diagnostic Testing: Clinical Impression(s) from Imaging Studies Chest X-Ray 04/24/21 04:35 IMPRESSION: Stable lung markings. No visualized acute focal infiltrate. Electronically Signed: Monica Mcfadden MD at 4:48 EST Tel , Service support , Discharge Plan Triage Chief Complaint: Shortness of Breath ED Provider: Ariel Hinds Dx/Rx/DC Orders Clinical Impression: Viral upper respiratory illness Instructions: ED URI, Viral W/ Wheezing (Adult) Prescriptions: New prednisone 20 mg tablet 40 mg PO DAILY 5 Days Qty: 10 RF: 0 benzonatate 100 mg capsule 200 mg PO TID PRN (Reason: cough) Qty: 60 RF: 0 albuterol sulfate [Ventolin HFA] 90 mcg/actuation HFA aerosol inhaler 1 - 2 puff inhalation Q4H PRN PRN (Reason: Wheezing) Qty: 1 RF: 0 ipratropium-albuterol 0.5 mg-3 mg(2.5 mg base)/3 mL solution for nebulization 3 ml inhalation Q6H PRN (Reason: shortness of breath or wheezing) Qty: 90 RF: 1 (DME) nebulizer and compressor Device See Rx Instructions .ROUTE .MEDSUPPLY Qty: 1 RF: 0 No Action omeprazole 20 mg capsule,delayed release(DR/EC) 20 mg PO DAILY RF: 0 (DME) lancets [FreeStyle Lancets] 28 gauge misc See Rx Instructions .ROUTE .MEDSUPPLY Qty: 200 RF: 3 (DME) blood-glucose meter [FreeStyle Lite Meter] Kit See Rx Instructions .ROUTE .MEDSUPPLY Qty: 1 RF: 0 hydroxychloroquine 200 mg tablet 400 mg PO DAILY RF: 0 metoprolol succinate 50 mg tablet extended release 24 hr 50 mg PO DAILY Qty: 90 RF: 3 prednisone 5 mg tablet 15 mg PO BID RF: 0 sulfasalazine 500 mg tablet 1 g PO BID RF: 0 aspirin [Adult Aspirin Regimen] 81 mg tablet,delayed release (DR/EC) 81 mg PO QDAY RF: 0 glimepiride 2 mg tablet 2 mg PO BID Qty: 60 RF: 3 oxybutynin chloride 15 mg Tablet Extended Release 24hr 30 mg PO DAILY RF: 0 (DME) FreeStyle Lite Strips Strip See Rx Instructions .ROUTE .MEDSUPPLY Qty: 200 RF: 3 losartan 25 mg tablet 25 mg PO DAILY Qty: 90 RF: 3 metformin 1,000 mg tablet 1,000 mg PO BID Qty: 180 RF: 3 pravastatin 80 mg tablet See Rx Instructions .ROUTE .COMPLEX Qty: 90 RF: 3 tamsulosin 0.4 mg capsule 0.4 mg PO BID Qty: 180 RF: 3 Primary Care Provider: Luis Ochoa Referrals: Luis Ochoa MD [Primary Care Provider] - Disposition Disposition: Home, Self Care
[2021-04-24 04:26] LABS: Absolute Neutrophil Count 5.2 X10^3/uL (2.0-7.7); Basophil% 1.1 % (0-1); Eosinophil# 0.21 X10^3/uL; Eosinophils% 2.4 % (0-5); Hematocrit 46.9 % (40-54); Hemoglobin 15.6 g/dL (13.0-16.5); Lymphocyte % 22.8 % (19-41); Mean Corp Hgb Conc 33.3 g/dL (32-36); Mean Corpuscular Hgb 33.8 pg (27.0-32.0); Mean Corpuscular Volume 101.7 fL (80-94); Mean Platelet Vol. 10.8 fl (6.2-12.0); Monocyte# 1.23 X10^3/uL; NRBC Flagged by Analyzer 0 % (0-5); Neutrophil # 5.16 X10^3/uL (2.7-7.7); Platelet Count 222 K/mm3 (150-450); RBC Distribution Width CV 13.7 % (11.6-14.6); RBC Distribution Width SD 51.6 fl (35.1-43.9); Red Blood Count 4.61 M/mm3 (4.6-6.2); White Blood Count 8.8 K/mm3 (4.4-11.0)
[2021-04-24] MEDS: MethylPREDNISolone 125 MG/2 ML Vial IV (04:28)
[2021-04-24] MEDS: Benzonatate 100 MG Capsule 200 MG PO (04:29)
--- NOTE | 2021-04-24 04:35 | RAD_ITS ---
STUDY: X-RAY CHEST REASON FOR EXAM: Male, 65 years old. Cough TECHNIQUE: Single AP portable view of the chest. COMPARISON: December 04, 2020 chest x-ray FINDINGS: The lung markings are stable since prior study. There is stable minimal interstitial prominence. There is no demonstrated pleural abnormality. Normal size heart. Normal mediastinum and noelle. Normal visualized pulmonary arteries. Normal visualized aortic arch and descending thoracic aorta. There are diffuse degenerative changes of the visualized thoracic spine. A resection or erosion of the distal right clavicle. There is slight widening of the left acromioclavicular joint. There is no demonstrated abnormality of the visualized soft tissue structures of the upper abdomen. RAD/Chest 1 View (Portable) IMPRESSION: Stable lung markings. No visualized acute focal infiltrate. Electronically Signed: Monica Mcfadden MD at 4:48 EST Tel , Service support ,
[2021-04-24 04:40] LABS: Anion Gap 7 (5-15); BUN 16 mg/dL (7-18); BUN/Creat Ratio 16.9 RATIO (10-20); Calcium,Total 9.2 mg/dL (8.5-10.1); Chloride 105 mmol/L (98-107); Creatinine, Serum 0.95 mg/dL (0.70-1.30); EST Glomerular Filtration Rate 84 mL/min (>60); Est Glom Filt Rate - Afr Amer 102 mL/min (>60); Estimated Creatinine Clearance 70.55 ml/min; Glucose 79 mg/dL (74-106); Magnesium 1.9 mg/dL (1.6-2.6); Sodium Level 140 mmol/L (136-145); Troponin-I HS 11 pg/mL (3.0-78.0)
[2021-04-24 04:52] LABS: BNP,B-Type NATRIURETIC PEPTIDE 28.2 pg/mL (0-100)
[2021-04-24] MEDS: Ipratropium/Albuterol Sulfate 3 ML AMPUL.NEB INHALATION (04:59)
[2021-04-24] MEDS: Albuterol 2.5 MG/3 ML VIAL.NEB. INHALATION (04:59)
[2021-04-24 05:01] VITALS: PULSE 75; RESP 15
[2021-04-24 05:31] VITALS: BP 168/70; PULSE 82; RESP 18; O2SAT 93
== END 2021-04-24 05:32 | disposition home or self-care (01) ==
PROVIDERS: Emergency Provider Emergency Medicine; PCP Family Medicine
DX: J06.9 Acute upper respiratory infection, unspecified (principal); I25.10 Atherosclerotic heart disease of native coronary artery without angina pectoris; N40.0 Benign prostatic hyperplasia without lower urinary tract symptoms; E66.9 Obesity, unspecified; E11.40 Type 2 diabetes mellitus with diabetic neuropathy, unspecified; I10 Essential (primary) hypertension; I48.0 Paroxysmal atrial fibrillation; I48.92 Unspecified atrial flutter; J44.9 Chronic obstructive pulmonary disease, unspecified; K21.9 Gastro-esophageal reflux disease without esophagitis; Z79.82 Long term (current) use of aspirin; Z79.84 Long term (current) use of oral hypoglycemic drugs; Z79.899 Other long term (current) drug therapy; Z87.891 Personal history of nicotine dependence; Z95.5 Presence of coronary angioplasty implant and graft
CPT/HCPCS: 71045; 80048; 83735; 83880; 84484; 85025; 87426; 93005; 94640; 96374; 99283; A4216

== ENCOUNTER 2021-04-26 06:44 | Observation (INO) | payer MEDICARE, OTHER, SELFPAY ==
[2021-04-26] VITALS (15 sets, daily range): BP systolic 128–165; BP diastolic 72–111; PULSE 91–109; RESP 13–30; TEMP 36.4–37.1; O2SAT 86–98; BMI 46.0; BMI 44.9
--- NOTE | 2021-04-26 07:09 | EKG12_ITS ---
Test Reason : SOB Blood Pressure : / mmHG Vent. Rate : 095 BPM Atrial Rate : 095 BPM P-R Int : 178 ms QRS Dur : 082 ms QT Int : 348 ms P-R-T Axes : 000 -15 038 degrees QTc Int : 437 ms Normal sinus rhythm Normal ECG Confirmed by KIKO PRITCHETT MD ([id number]), associate entertainment editor SAMANTHA WOLFE ([id number]) on 04/27/2021 10:39:48 AM Referred By: FRAN Confirmed By:KIKO PRITCHETT MD
--- NOTE | 2021-04-26 07:10 | EX.ED.DYSGE1 ---
HPI History of Present Illness Chief Complaint: Shortness of Breath Informant: patient and spouse/S.O. Onset/Context/Timing Onset: Weeks Context: Gradual Onset Current Severity: Mild Maximum Severity: Moderate Narrative Narrative: Patient presents secondary to cough and shortness of breath been ongoing for the last 2 to 3 weeks. Patient denies having fever. He is especially short of breath with any exertion. He states this feels like when he had bilateral pneumonia in the past. Chest x-ray 2 days ago was unremarkable. Patient was discharged with a nebulizer but states the pharmacy did not send the machine with him. He denies having fever. [facility] Medical History PAUL (acute kidney injury) Atherosclerotic heart disease of [place] coronary artery without angina pectoris BPH (benign prostatic hyperplasia) Diabetes Essential hypertension GERD (gastroesophageal reflux disease) Hyperlipidemia Hypertension Liver disease 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, intermediate, current use Neuropathy Paroxysmal atrial fibrillation Paroxysmal atrial flutter Presence of stent in coronary artery (~03/15/06) Pulmonary nodule Pure hypercholesterolemia Home Medications omeprazole 20 mg capsule,delayed release 20 mg PO DAILY 06/12/19 [History Last Taken Unknown] blood-glucose meter #1 ea 07/20/19 [Rx Last Taken Unknown] lancets 28 gauge #200 ea 07/20/19 [Rx Last Taken Unknown] blood sugar diagnostic #200 ea 09/24/19 [Rx Last Taken Unknown] hydroxychloroquine 200 mg tablet 400 mg PO DAILY tab 06/16/20 [History Last Taken Unknown] losartan 25 mg tablet 25 mg PO DAILY #90 tab 07/25/20 [Rx Last Taken Unknown] metformin 1,000 mg tablet 1,000 mg PO BID #180 tab 07/25/20 [Rx Last Taken Unknown] pravastatin 80 mg tablet See Rx Instructions .ROUTE .COMPLEX #90 tab 10/14/20 [Rx Last Taken Unknown] metoprolol succinate 50 mg tablet,extended release 24 hr 50 mg PO DAILY #90 tab 11/18/20 [Rx Last Taken Unknown] aspirin 81 mg tablet,delayed release 81 mg PO QDAY tab 01/19/21 [History Last Taken Unknown] glimepiride 2 mg tablet 2 mg PO BID #60 tab 01/19/21 [Rx Last Taken Unknown] tamsulosin 0.4 mg capsule 0.4 mg PO BID #180 cap 01/19/21 [Rx Last Taken Unknown] prednisone 5 mg tablet 15 mg PO BID tab 03/30/21 [History Last Taken Unknown] sulfasalazine 500 mg tablet 1 g PO BID tab 03/30/21 [History Last Taken Unknown] albuterol sulfate [Ventolin HFA] 1 - 2 puff INHALATION Q4H PRN PRN #1 device 04/24/21 [Rx Last Taken Unknown] benzonatate 200 mg PO TID PRN #60 cap 04/24/21 [Rx Last Taken Unknown] ipratropium-albuterol 3 ml INHALATION Q6H PRN #90 ml 04/24/21 [Rx Last Taken Unknown] nebulizer and compressor #1 ea 04/24/21 [Rx Last Taken Unknown] oxybutynin chloride 30 mg PO DAILY 04/24/21 [History Last Taken Unknown] prednisone 40 mg PO DAILY 5 Days #10 tab 04/24/21 [Rx Last Taken Unknown] Allergy/AdvReac Type Severity Reaction Status Date / Time No Known Allergies Allergy Verified 04/26/21 06:50 Family History Son Diabetes Mother Myocardial infarction, Onset Age: 73 Father No problems noted. Son Diabetes Surgical History History of arthroplasty of left shoulder History of arthroplasty of right shoulder History of cardiac radiofrequency ablation (RFA) (~01/20/17) History of carpal tunnel surgery History of hand surgery History of sinus surgery Postsurgical percutaneous transluminal coronary angioplasty (PTCA) status (~03/15/06) Presence of coronary angioplasty implant and graft (~03/15/06) Social History Smoking Status: Former smoker how long ago did patient quit smokin, 2pk/day second hand exposure: Yes alcohol intake: current details: rare substance use type: does not use what type of physical activity do you participate in: none ROS ROS ED Constitutional Constitutional ED: Denies chills or fever(s) Eyes Eyes: Denies change in vision ENT ENT ED: Denies sore throat Cardiovascular Cardiovascular: Denies chest pain Respiratory/Chest Respiratory/Chest: Reports cough and dyspnea Gastrointestinal Gastrointestinal: Denies abdominal pain, diarrhea, nausea or vomiting Genitourinary Genitourinary ED: Denies dysuria Musculoskeletal Musculoskeletal: Reports myalgias; Denies back pain Integumentary Denies rash Neurologic Neurologic: Denies headache(s) or weakness Allergic/Immunologic Allergic/Immunologic ED: Denies urticaria EXAM Physical Exam Const Vital Signs: 04/26/21 06:45 04/26/21 06:51 04/26/21 07:31 Temperature 97.5 F L Temperature Source Oral Pulse Rate 92 95 Respiratory Rate 18 14 Respiratory Effort Short of Breath Respiratory Depth Normal Respiratory Pattern Normal Normal Blood Pressure 128/111 H Blood Pressure Mean 116 Pulse Ox 95 Oxygen Delivery Method Room Air Room Air Oxygen Flow Rate (L/min) 04/26/21 08:00 04/26/21 08:14 04/26/21 09:00 Temperature Temperature Source Pulse Rate 102 H 95 Respiratory Rate 19 H 30 H Respiratory Effort Respiratory Depth Respiratory Pattern Blood Pressure 140/73 H 148/72 H Blood Pressure Mean 95 97 Pulse Ox 93 94 94 Oxygen Delivery Method Room Air Nasal Cannula Nasal Cannula Oxygen Flow Rate (L/min) 2 04/26/21 09:36 04/26/21 10:21 04/26/21 10:22 Temperature Temperature Source Pulse Rate 101 H Respiratory Rate 13 Respiratory Effort Respiratory Depth Respiratory Pattern Normal Blood Pressure Blood Pressure Mean Pulse Ox 86 93 Oxygen Delivery Method Room Air Nasal Cannula Oxygen Flow Rate (L/min) 2 Positive well nourished and well developed General Appearance ED: well developed HEENT Reports moist mucous membranes Eyes PERRL and EOMs intact bilaterally Neck supple Resp normal respiratory effort and clear to auscultation bilaterally Cardio regular rate and regular rhythm GI GI Narrative: Mild bilateral rhonchi. Extremity normal to inspection Neuro oriented x3 Sensorium / Orientation: alert Skin no rashes or lesions noted MDM MDM MDM Narrative Medical decision making narrative: DuoNeb treatment given. EKG, chest x-ray, lab work obtained. Covid PCR ordered. Lab Data Attestation: I reviewed the patient's lab results. Labs: Laboratory Results - last 24 hr 04/26/21 04/26/21 04/26/21 07:25 07:25 07:25 WBC 9.4 RBC 4.31 L Hgb 14.6 Hct 43.6 MCV 101.2 H MCH 33.9 H MCHC 33.5 RDW Std Deviation 50.7 H RDW Coeff of Jaqueline 13.6 Plt Count 180 MPV 10.7 Immature Gran % (Auto) 0.400 Neut % (Auto) 70.8 H Lymph % (Auto) 16.7 L [place] % (Auto) 9.9 Eos % (Auto) 1.5 Baso % (Auto) 0.7 Absolute Neuts (auto) 6.6 Absolute Lymphs (auto) 1.57 Nucleated RBC % 0 D-Dimer Quant (PE/DVT) 0.34 Sodium 139 Potassium 3.8 Chloride 104 Carbon Dioxide 27.0 Anion Gap 8 BUN 25 H Creatinine 0.87 Estim Creat Clear Calc 77.03 Est GFR (MDRD) Af Amer 112 Est GFR (MDRD) Non-Af 93 BUN/Creatinine Ratio 28.7 H Glucose 96 Calcium 9.2 Troponin I High Sens 10 B-Natriuretic Peptide COVID-19 ([facility]) 04/26/21 04/26/21 07:25 07:25 WBC RBC Hgb Hct MCV MCH MCHC RDW Std Deviation RDW Coeff of Jaqueline Plt Count MPV Immature Gran % (Auto) Neut % (Auto) Lymph % (Auto) [place] % (Auto) Eos % (Auto) Baso % (Auto) Absolute Neuts (auto) Absolute Lymphs (auto) Nucleated RBC % D-Dimer Quant (PE/DVT) Sodium Potassium Chloride Carbon Dioxide Anion Gap BUN Creatinine Estim Creat Clear Calc Est GFR (MDRD) Af Amer Est GFR (MDRD) Non-Af BUN/Creatinine Ratio Glucose Calcium Troponin I High Sens B-Natriuretic Peptide 15.0 COVID-19 ([facility]) Negative Radiography Chest X-Ray - ED: 1 View, Read by ED Physician, Chronic Changes and No Infiltrates Diagnostic Testing: Clinical Impression(s) from Imaging Studies Chest X-Ray 04/26/21 07:38 IMPRESSION: Underexpansion of the lungs. Chronic appearing interstitial markings. No definitive acute focal infiltrate. Electronically Signed: Monica Mcfadden MD at 8:14 EST Tel , Service support , EKG Initial EKG: Attestation: I personally reviewed and interpreted this EKG as follows: Interpretation: Sinus Rhythm (Sinus at 95 with no acute ischemia.) Treatment and Re-Evaluation Comments:: Patient initially was placed on 2 L nasal cannula for comfort. Test results discussed with patient and at bedside. No focal infiltrate noted. D-dimer negative. Covid PCR does return negative. Patient states he got an inhaler but has not been using it at home. On repeat auscultation of his lungs he has continued rhonchorous sounds with wheezing. He is given 2 additional albuterol treatments. At this time patient was taken off of his oxygen. O2 sat dropped as low as 86% on room air. Back on 2 L nasal cannula he is in the low 90s. Patient will be given a dose of Zithromax and I will speak with hospitalist regarding admission for bronchitis with bronchospasm and hypoxia. Discharge Plan Triage Chief Complaint: Shortness of Breath ED Provider: Deja Saini Dx/Rx/DC Orders Clinical Impression: Bronchitis, Bronchospasm, Hypoxia Prescriptions: No Action omeprazole 20 mg capsule,delayed release(DR/EC) 20 mg PO DAILY RF: 0 (DME) lancets [FreeStyle Lancets] 28 gauge misc See Rx Instructions .ROUTE .MEDSUPPLY Qty: 200 RF: 3 (DME) blood-glucose meter [FreeStyle Lite Meter] Kit See Rx Instructions .ROUTE .MEDSUPPLY Qty: 1 RF: 0 hydroxychloroquine 200 mg tablet 400 mg PO DAILY RF: 0 metoprolol succinate 50 mg tablet extended release 24 hr 50 mg PO DAILY Qty: 90 RF: 3 prednisone 5 mg tablet 15 mg PO BID RF: 0 sulfasalazine 500 mg tablet 1 g PO BID RF: 0 aspirin [Adult Aspirin Regimen] 81 mg tablet,delayed release (DR/EC) 81 mg PO QDAY RF: 0 glimepiride 2 mg tablet 2 mg PO BID Qty: 60 RF: 3 oxybutynin chloride 15 mg Tablet Extended Release 24hr 30 mg PO DAILY RF: 0 prednisone 20 mg tablet 40 mg PO DAILY 5 Days Qty: 10 RF: 0 benzonatate 100 mg capsule 200 mg PO TID PRN (Reason: cough) Qty: 60 RF: 0 albuterol sulfate [Ventolin HFA] 90 mcg/actuation HFA aerosol inhaler 1 - 2 puff inhalation Q4H PRN PRN (Reason: Wheezing) Qty: 1 RF: 0 ipratropium-albuterol 0.5 mg-3 mg(2.5 mg base)/3 mL solution for nebulization 3 ml inhalation Q6H PRN (Reason: shortness of breath or wheezing) Qty: 90 RF: 1 (DME) nebulizer and compressor Device See Rx Instructions .ROUTE .MEDSUPPLY Qty: 1 RF: 0 (DME) FreeStyle Lite Strips Strip See Rx Instructions .ROUTE .MEDSUPPLY Qty: 200 RF: 3 losartan 25 mg tablet 25 mg PO DAILY Qty: 90 RF: 3 metformin 1,000 mg tablet 1,000 mg PO BID Qty: 180 RF: 3 pravastatin 80 mg tablet See Rx Instructions .ROUTE .COMPLEX Qty: 90 RF: 3 tamsulosin 0.4 mg capsule 0.4 mg PO BID Qty: 180 RF: 3 Primary Care Provider: Luis Ochoa Referrals: Luis Ochoa MD [Primary Care Provider] - Disposition Disposition: Acute Care Hospital [facility]
[2021-04-26] MEDS: Ipratropium/Albuterol Sulfate 3 ML AMPUL.NEB INHALATION ×2 (07:29→20:00)
--- NOTE | 2021-04-26 07:38 | RAD_ITS ---
STUDY: X-RAY CHEST REASON FOR EXAM: Male, 65 years old. Sob TECHNIQUE: Single AP portable view of the chest. COMPARISON: July 25, 2018, December 04, 2020 chest x-ray chest x-ray FINDINGS: Interstitial markings are minimally prominent similar to the prior studies. There is no demonstrated pleural abnormality. Normal size heart. Normal mediastinum and noelle. Normal visualized pulmonary arteries. There is atherosclerotic tortuosity of the aortic arch and descending thoracic aorta. There are diffuse degenerative changes of the visualized thoracic spine. Normal visualized ribs, clavicles, and shoulders. There is no demonstrated abnormality of the visualized soft tissue structures of the upper abdomen. There is also expansion of the lungs. RAD/Chest 1 View (Portable) IMPRESSION: Underexpansion of the lungs. Chronic appearing interstitial markings. No definitive acute focal infiltrate. Electronically Signed: Monica Mcfadden MD at 8:14 EST Tel , Service support ,
[2021-04-26 07:47] LABS: Absolute Lymphocyte Count 1.57 X10^3/uL (0.83-4.51); Absolute Neutrophil Count 6.6 X10^3/uL (2.0-7.7); Basophil# 0.07 X10^3/uL; Basophil% 0.7 % (0-1); Eosinophil# 0.14 X10^3/uL; Eosinophils% 1.5 % (0-5); Hematocrit 43.6 % (40-54); Hemoglobin 14.6 g/dL (13.0-16.5); Lymphocyte # 1.57 X10^3/ul (0.83-4.51); Lymphocyte % 16.7 % (19-41); Mean Corp Hgb Conc 33.5 g/dL (32-36); Mean Corpuscular Hgb 33.9 pg (27.0-32.0); Mean Corpuscular Volume 101.2 fL (80-94); Mean Platelet Vol. 10.7 fl (6.2-12.0); Monocyte# 0.93 X10^3/uL; Monocyte% 9.9 % (0-10); NRBC Flagged by Analyzer 0 % (0-5); Neutrophil # 6.64 X10^3/uL (2.7-7.7); Neutrophil % 70.8 % (47-70); Platelet Count 180 K/mm3 (150-450); RBC Distribution Width CV 13.6 % (11.6-14.6); RBC Distribution Width SD 50.7 fl (35.1-43.9); Red Blood Count 4.31 M/mm3 (4.6-6.2); White Blood Count 9.4 K/mm3 (4.4-11.0)
[2021-04-26 07:57] LABS: Anion Gap 8 (5-15); BUN 25 mg/dL (7-18); BUN/Creat Ratio 28.7 RATIO (10-20); Calcium,Total 9.2 mg/dL (8.5-10.1); Chloride 104 mmol/L (98-107); Creatinine, Serum 0.87 mg/dL (0.70-1.30); EST Glomerular Filtration Rate 93 mL/min (>60); Est Glom Filt Rate - Afr Amer 112 mL/min (>60); Estimated Creatinine Clearance 77.03 ml/min; Glucose 96 mg/dL (74-106); Potassium 3.8 mmol/L (3.5-5.1); Sodium Level 139 mmol/L (136-145); Troponin-I HS 10 pg/mL (3.0-78.0)
[2021-04-26 07:59] LABS: D-Dimer Quantitative (DVT/PE) 0.34 FEU/ug/m (0.27-0.49)
[2021-04-26 08:59] LABS: Probe Check PASS; Specimen Processing Control PASS
[2021-04-26] MEDS: Albuterol 2.5 MG/3 ML VIAL.NEB. INHALATION ×2 (09:34)
[2021-04-26] MEDS: Azithromycin 250 MG Tablet 500 MG PO (10:40)
[2021-04-26] MEDS: LORazepam 2 MG/ML Syringe 0.5 MG IV (10:41)
--- NOTE | 2021-04-26 10:54 | PCM.HP.STD ---
HPI - General General Date of Admission: 04/26/21 Date of Service: 04/26/21 Chief Complaint: Shortness of breath HPI Narrative LULY SMART, is a 65 M who presented to the emergency department [facility] on April 26, 2021 with a chief complaint of shortness of breath. He was in the emergency department 2 days ago and had stable oxygen saturations but did have diffuse rhonchi and wheezing at that time. He was given steroids and a breathing treatment and had improvement and therefore was discharged home. He returns today with similar complaints. He states that he has had some increased shortness of breath for approximately 2 to 3 weeks now but the last 2 to 3 days he is really gotten significantly worse. He denies any fever but states he had a short episode of chills. His also has an upper respiratory infection. He complains of cough that initially was productive of sputum but has not been recently, wheezing, and shortness of breath. His vital signs in the emergency department were relatively stable other than hypoxia on room air with an oxygen saturation of 86%. He was placed on 2 L nasal cannula and had improvement in his saturations to 93 to 96%. He was afebrile with mild tachycardia that was intermittent, mild blood pressure elevations and tachypnea with respiratory rate documented anywhere from 13-30. He does seem significantly anxious. In 2019 he had an extended stay that required intubation for influenza and superimposed bacterial pneumonia. His CBC is overall unimpressive with a normal white count at 9.4. He does have a mild left shift with a neutrophil percent at 70.8%. His D-dimer is normal his BMP is unimpressive. His troponin was normal at ten and a BNP was fifteen. A rapid Covid was performed and was negative. His chest x-ray shows underexpansion of the lungs and chronic appearing interstitial markings with no infiltrates which is stable when compared to previous chest x-ray done on April 24, 2021. On exam he has marked wheezing and few scattered rhonchi. In the emergency department he was treated with a azithromycin and a DuoNeb and request for admission was made. A viral PCR was requested by me and obtained by the emergency department prior to admission but is pending. [facility] Medical History PAUL (acute kidney injury) Atherosclerotic heart disease of [place] coronary artery without angina pectoris BPH (benign prostatic hyperplasia) Diabetes Essential hypertension GERD (gastroesophageal reflux disease) Hyperlipidemia Hypertension Liver disease 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, halfway, current use Neuropathy Paroxysmal atrial fibrillation Paroxysmal atrial flutter Presence of stent in coronary artery (~03/15/06) Pulmonary nodule Pure hypercholesterolemia Home Medications omeprazole 20 mg capsule,delayed release 20 mg PO DAILY 06/12/19 [History Last Taken Unknown] blood-glucose meter #1 ea 07/20/19 [Rx Last Taken Unknown] lancets 28 gauge #200 ea 07/20/19 [Rx Last Taken Unknown] blood sugar diagnostic #200 ea 09/24/19 [Rx Last Taken Unknown] hydroxychloroquine 200 mg tablet 400 mg PO DAILY tab 06/16/20 [History Last Taken Unknown] losartan 25 mg tablet 25 mg PO DAILY #90 tab 07/25/20 [Rx Last Taken Unknown] metformin 1,000 mg tablet 1,000 mg PO BID #180 tab 07/25/20 [Rx Last Taken Unknown] pravastatin 80 mg tablet See Rx Instructions .ROUTE .COMPLEX #90 tab 10/14/20 [Rx Last Taken Unknown] metoprolol succinate 50 mg tablet,extended release 24 hr 50 mg PO DAILY #90 tab 11/18/20 [Rx Last Taken Unknown] aspirin 81 mg tablet,delayed release 81 mg PO QDAY tab 01/19/21 [History Last Taken Unknown] glimepiride 2 mg tablet 2 mg PO BID #60 tab 01/19/21 [Rx Last Taken Unknown] tamsulosin 0.4 mg capsule 0.4 mg PO BID #180 cap 01/19/21 [Rx Last Taken Unknown] prednisone 5 mg tablet 15 mg PO BID tab 03/30/21 [History Last Taken Unknown] sulfasalazine 500 mg tablet 1 g PO BID tab 03/30/21 [History Last Taken Unknown] albuterol sulfate [Ventolin HFA] 1 - 2 puff INHALATION Q4H PRN PRN #1 device 04/24/21 [Rx Last Taken Unknown] benzonatate 200 mg PO TID PRN #60 cap 04/24/21 [Rx Last Taken Unknown] ipratropium-albuterol 3 ml INHALATION Q6H PRN #90 ml 04/24/21 [Rx Last Taken Unknown] nebulizer and compressor #1 ea 04/24/21 [Rx Last Taken Unknown] oxybutynin chloride 30 mg PO DAILY 04/24/21 [History Last Taken Unknown] prednisone 40 mg PO DAILY 5 Days #10 tab 04/24/21 [Rx Last Taken Unknown] Allergy/AdvReac Type Severity Reaction Status Date / Time No Known Allergies Allergy Verified 04/26/21 06:50 Family History Son Diabetes Mother Myocardial infarction, Onset Age: 73 Father No problems noted. Son Diabetes Surgical History History of arthroplasty of left shoulder History of arthroplasty of right shoulder History of cardiac radiofrequency ablation (RFA) (~01/20/17) History of carpal tunnel surgery History of hand surgery History of sinus surgery Postsurgical percutaneous transluminal coronary angioplasty (PTCA) status (~03/15/06) Presence of coronary angioplasty implant and graft (~03/15/06) Social History Smoking Status: Former smoker how long ago did patient quit smokin, 2pk/day second hand exposure: Yes alcohol intake: current details: rare substance use type: does not use what type of physical activity do you participate in: none ROS Constitutional Constitutional: Reports chills and weakness; Denies anorexia, change in weight, fatigue, fever(s), malaise, night sweats or other Eyes Eyes: Denies blurry vision, change in eye color, change in vision, discharge from eye(s), double vision, erythema, eye pain, loss of vision or other ENT HEENT: Denies abnormal hearing, dysphagia, ear pain, epistaxis, headache(s), hearing loss, nasal congestion, nasal discharge, post nasal drip, sinus pressure, sore throat or other Cardiovascular Cardiovascular: Reports dyspnea on exertion; Denies chest pain, claudication, edema, lightheadedness, orthopnea, palpitations, paroxysmal nocturnal dyspnea, rapid heart rate, syncope or other Respiratory/Chest Respiratory/Chest: Reports cough, dyspnea, shortness of breath at rest, shortness of breath with exertion and wheezing; Denies excessive phlegm production, hemoptysis, productive cough or other Gastrointestinal Gastrointestinal: Denies abdominal pain, coffee ground emesis, constipation, diarrhea, dyspepsia, hematemesis, hematochezia, loose stools, melena, nausea, vomiting or other Genitourinary Genitourinary: Denies burning urination, difficulty urinating, dysuria, hematuria, nocturia, urinary frequency, urinary hesitancy, urinary incontinence, urinary urgency or other Musculoskeletal Musculoskeletal: Denies arthralgias, back pain, joint pain, joint stiffness, joint swelling, myalgias, neck pain or other Neurologic Neurologic: Denies abnormal gait, abnormal speech, confusion, disequilibrium, dizziness, focal weakness, headache(s), numbness, paresthesias, seizure-like activity, seizures, syncope, tingling, tremor(s) or other Psychiatric Psychiatric: Denies anxiety, depression, homicidal ideation, suicidal ideation or other Endocrine Endocrinology: Denies change in body appearance, cold intolerance, excessive sweating, heat intolerance, polydipsia, polyuria or other Hematologic/Lymphatic Hematologic/Lymphatic: Denies anemia, easy bleeding, easy bruising, lymphadenopathy or other Allergic/Immunologic Allergic/Immunologic: Denies rhinitis, hives, eczemia, asthma or other Vital Signs Vital Signs Vital Signs: 04/26/21 06:45 04/26/21 06:51 04/26/21 07:31 Temperature 97.5 F L Temperature Source Oral Pulse Rate 92 95 Respiratory Rate 18 14 Respiratory Effort Short of Breath Respiratory Depth Normal Respiratory Pattern Normal Normal Blood Pressure 128/111 H Blood Pressure Mean 116 Pulse Ox 95 Oxygen Delivery Method Room Air Room Air Oxygen Flow Rate (L/min) 04/26/21 08:00 04/26/21 08:14 04/26/21 09:00 Temperature Temperature Source Pulse Rate 102 H 95 Respiratory Rate 19 H 30 H Respiratory Effort Respiratory Depth Respiratory Pattern Blood Pressure 140/73 H 148/72 H Blood Pressure Mean 95 97 Pulse Ox 93 94 94 Oxygen Delivery Method Room Air Nasal Cannula Nasal Cannula Oxygen Flow Rate (L/min) 2 04/26/21 09:36 04/26/21 10:21 04/26/21 10:22 Temperature Temperature Source Pulse Rate 101 H Respiratory Rate 13 Respiratory Effort Respiratory Depth Respiratory Pattern Normal Blood Pressure Blood Pressure Mean Pulse Ox 86 93 Oxygen Delivery Method Room Air Nasal Cannula Oxygen Flow Rate (L/min) 2 Weight Weight: 133.2 kg Body Mass Index (BMI) 46.0 Physical Exam Const alert, oriented x3 and no apparent distress Constitutional Narrative: Morbidly obese white male sitting up in bed, at bedside, patient appears comfortable and nontoxic although somewhat anxious, currently on 2 L nasal cannula, no dyspnea with conversation General Appearance: cooperative HEENT normocephalic, head/scalp atraumatic, hearing grossly normal bilaterally and moist oral mucous membranes HEENT Narrative: Dentition is fair, Mallampati is 3-4, no thrush Eyes PERRL, EOMs intact bilaterally and conjunctivae normal Eyes Narrative: No scleral icterus Neck no lymphadenopathy, supple, no JVD and no carotid bruits Neck Narrative: Trachea midline, no thyroid enlargement, short thick neck Resp No no retractions and No no use of accessory muscles Resp Narrative: Mild tachypnea with no signs of extremis, diffuse inspiratory and expiratory wheezing Auscultation: wheezes; Negative for crackles, rales or rhonchi Cardio regular rhythm, S1 normal heart sound, S2 normal heart sound, no murmurs, no rub, no gallops, no clicks and no JVD Cardio Narrative: Mild tachycardia GI normal to inspection, nondistended, normoactive bowel sounds, soft to palpation, non-tender and non-distended Extremity no clubbing, cyanosis or edema Peripheral Pulses: Yes pulses 2+ throughout Skin no rashes or lesions noted, no wounds, skin turgor normal, no jaundice, no petechiae and no mottling Neuro oriented x3, CN's II-XII intact bilaterally, moves all extremities and no focal motor deficits Sensorium / Orientation: awake and alert Psych Mood & Affect: anxious Results Lab / Micro Data Attestation: I reviewed the patient's lab results. Result Diagrams: 04/26/21 07:25 04/26/21 07:25 Labs: Laboratory Results - last 24 hr 04/26/21 07:25: WBC 9.4, RBC 4.31 L, Hgb 14.6, Hct 43.6, MCV 101.2 H, MCH 33.9 H, MCHC 33.5, RDW Std Deviation 50.7 H, RDW Coeff of Jaqueline 13.6, Plt Count 180, MPV 10.7, Immature Gran % (Auto) 0.400, Neut % (Auto) 70.8 H, Lymph % (Auto) 16.7 L, [place] % (Auto) 9.9, Eos % (Auto) 1.5, Baso % (Auto) 0.7, Absolute Neuts (auto) 6.6, Absolute Lymphs (auto) 1.57, Nucleated RBC % 0 04/26/21 07:25: D-Dimer Quant (PE/DVT) 0.34 04/26/21 07:25: Sodium 139, Potassium 3.8, Chloride 104, Carbon Dioxide 27.0, Anion Gap 8, BUN 25 H, Creatinine 0.87, Estim Creat Clear Calc 77.03, Est GFR (MDRD) Af Amer 112, Est GFR (MDRD) Non-Af 93, BUN/Creatinine Ratio 28.7 H, Glucose 96, Calcium 9.2, Troponin I High Sens 10 04/26/21 07:25: B-Natriuretic Peptide 15.0 04/26/21 07:25: COVID-19 ([facility]AC[facility]) Negative Radiology Impression Chest X-Ray 04/26/21 07:38 IMPRESSION: Underexpansion of the lungs. Chronic appearing interstitial markings. No definitive acute focal infiltrate. Electronically Signed: Monica Mcfadden MD at 8:14 EST Tel , Service support , Assessment & Plan Assessment/Plan (1) Viral upper respiratory illness: (2) Bronchospasm: (3) Hypoxia: PLAN: Acute hypoxic respiratory insufficiency secondary to suspected upper respiratory viral illness -Supplemental oxygen as needed--> currently on 2 L -Patient is not O2 dependent at baseline -Pulmonary toilet with DuoNebs and as needed albuterol -Incentive spirometry and Acapella -Solu-Medrol 40 mg every 8 hours -Tessalon Perles for cough -Check strep pneumo and Legionella antigens -Viral PCR pending and if negative will start empiric antibiotics -Suspicion is low at this time for bacterial infection -Sputum culture as able -BiPAP at night as patient tolerates -Patient follows with Dr. Ponce from pulmonary but no current need for consultation [id number] -Most recent hemoglobin A1c was 7.0 -Hold oral agents while admitted -SSI medium high dose -Accu-Cheks 3 times daily -May need some scheduled Lantus with steroids CAD Status post RCA stenting in two thousand six -Currently stable -Continue aspirin Hyperlipidemia -Continue pravastatin Hypertension -Continue home metoprolol 50 mg daily the -Continue home losartan 25 mg daily History of atrial fibrillation -EPS/RFA in December 2016 -No current issues -Monitor clinically BPH/incontinence -Continue Flomax -Continue oxybutynin Rheumatoid arthritis -Continue sulfasalazine -Continue Plaquenil -Hold home steroids as patient is currently on IV Solu-Medrol -Follows at [facility] with Dr. Green DVT prophylaxis -Subcu Lovenox 40 mg twice daily CODE STATUS -Full code Charges/Coding Visit Charges Inpatient E&M: 95598 Init Hosp L3
--- NOTE | 2021-04-26 11:25 | PCS.PANDOC ---
PANDEMIC DOCUMENTATION INITIATED: Date: 01/05/2021 Time: 190
--- NOTE | 2021-04-26 12:15 | NURSING ---
tjhis nurse had just done assessment and was about to leave the room when pt states he started having chest pain. pt states chest pain is 8 out of 10 across chest. pt also restless sat on side of bed, would not lay down. I have to get up on the edge of bed. Pt staates he was not having chest pain prior to this. he also states that he feels the worst he has felt.
--- NOTE | 2021-04-26 12:19 | NURSING ---
Resp here performing EKG.
--- NOTE | 2021-04-26 12:20 | EKG12_ITS ---
Test Reason : CP Blood Pressure : / mmHG Vent. Rate : 102 BPM Atrial Rate : 102 BPM P-R Int : 112 ms QRS Dur : 082 ms QT Int : 350 ms P-R-T Axes : 000 -02 068 degrees QTc Int : 456 ms Sinus tachycardia with Premature atrial complexes Otherwise normal ECG When compared with ECG of 26-APR-2021 07:34, MANUAL COMPARISON REQUIRED, DATA IS UNCONFIRMED Confirmed by SHREYAS RIOS, KIKO ([id number]), newspaper managing editor SAMANTHA WOLFE ([id number]) on 04/28/2021 10:11:54 AM Referred By: BENJAMIN Confirmed By:KIKO PRITCHETT MD
[2021-04-26] MEDS: Mag Hydrox/Al Hydrox/Simeth 30 ML UDC PO (12:38)
[2021-04-26] MEDS: Benzonatate 100 MG Capsule 200 MG PO (12:39)
[2021-04-26] MEDS: Acetaminophen 325 MG Tablet 650 MG PO (12:39)
[2021-04-26] MEDS: Ondansetron 4 MG/2 ML Vial IV (12:39)
[2021-04-26] MEDS: 0.9% Saline Lock 10 ML Syringe IV ×2 (12:40→17:38)
[2021-04-26 13:14] LABS: Troponin-I HS 9 pg/mL (3.0-78.0)
[2021-04-26 13:41] LABS: Bedside Glucose 89 mg/dL (70-110)
[2021-04-26 14:36] LABS: Troponin-I HS 12 pg/mL (3.0-78.0)
[2021-04-26] MEDS: Losartan Potassium 25 MG Tablet PO (14:49)
[2021-04-26] MEDS: Pantoprazole Sodium 20 MG Tablet PO (14:49)
[2021-04-26] MEDS: Metoprolol(XL)Succ 50 MG Tablet PO (14:49)
[2021-04-26] MEDS: Tolterodine Tartrate 4 MG CAP.SA PO (14:54)
--- NOTE | 2021-04-26 15:14 | NURSING ---
Education via handbook given to pt and regarding RSV. is aware of wearing gown, gloves and mask while in room and washing hands prior to leaving room.
[2021-04-26] MEDS: Tamsulosin HCl 0.4 MG Capsule PO (16:32)
[2021-04-26 16:41] LABS: Bedside Glucose 160 mg/dL (70-110)
[2021-04-26] MEDS: Insulin Lispro 100 UNIT/ML INSULN.PEN SC (17:37)
[2021-04-26 20:03] LABS: Troponin-I HS 10 pg/mL (3.0-78.0)
--- NOTE | 2021-04-26 21:35 | CPS ---
Pt refuses PAP therapy at this time
[2021-04-26] MEDS: Pravastatin 80 MG Tablet PO (22:40)
[2021-04-26] MEDS: sulfaSALAzine 500 MG Tablet 1000 MG PO (22:40)
[2021-04-26] MEDS: Enoxaparin 40 MG/0.4 ML Syringe SC (22:41)
[2021-04-26] MEDS: busPIRone 5 MG Tablet 10 MG PO (23:15)
[2021-04-26 23:25] LABS: Bedside Glucose 182 mg/dL (70-110)
[2021-04-27] VITALS (10 sets, daily range): BP systolic 148–164; BP diastolic 73–80; PULSE 82–99; RESP 18–22; TEMP 36.7–37; O2SAT 87–97
[2021-04-27] MEDS: Insulin Lispro 100 UNIT/ML INSULN.PEN SC ×3 (05:17→16:53)
[2021-04-27 05:25] LABS: Bedside Glucose 190 mg/dL (70-110)
[2021-04-27 06:42] LABS: Absolute Lymphocyte Count 0.89 X10^3/uL (0.83-4.51); Absolute Neutrophil Count 8.5 X10^3/uL (2.0-7.7); Basophil# 0.01 X10^3/uL; Basophil% 0.1 % (0-1); Hematocrit 43.9 % (40-54); Hemoglobin 14.8 g/dL (13.0-16.5); Lymphocyte # 0.89 X10^3/ul (0.83-4.51); Lymphocyte % 8.8 % (19-41); Mean Corp Hgb Conc 33.7 g/dL (32-36); Mean Corpuscular Hgb 34.4 pg (27.0-32.0); Mean Corpuscular Volume 102.1 fL (80-94); Mean Platelet Vol. 11.1 fl (6.2-12.0); Monocyte% 6.9 % (0-10); NRBC Flagged by Analyzer 0 % (0-5); Neutrophil # 8.51 X10^3/uL (2.7-7.7); Neutrophil % 83.7 % (47-70); Platelet Count 208 K/mm3 (150-450); RBC Distribution Width CV 13.6 % (11.6-14.6); RBC Distribution Width SD 51.8 fl (35.1-43.9); White Blood Count 10.2 K/mm3 (4.4-11.0)
[2021-04-27] MEDS: Ipratropium/Albuterol Sulfate 3 ML AMPUL.NEB INHALATION ×3 (06:57→15:11)
[2021-04-27 07:25] LABS: ALB/GLOB Ratio 0.9 RATIO (0.9-2.4); AST(SGOT) 36 U/L (15-37); Alanine Aminotransfer ALT/SGPT 90 U/L (16-61); Albumin, Serum 3.5 g/dL (3.2-5.0); Alkaline Phosphatase 57 U/L (45-117); Anion Gap 8 (5-15); BUN 14 mg/dL (7-18); BUN/Creat Ratio 16.2 RATIO (10-20); Calcium,Total 9.5 mg/dL (8.5-10.1); Chloride 105 mmol/L (98-107); Creatinine, Serum 0.87 mg/dL (0.70-1.30); EST Glomerular Filtration Rate 93 mL/min (>60); Est Glom Filt Rate - Afr Amer 113 mL/min (>60); Estimated Creatinine Clearance 77.03 ml/min; Glucose 175 mg/dL (74-106); Magnesium 2.2 mg/dL (1.6-2.6); Phosphorus 3.6 mg/dL (2.5-4.9); Potassium 4.3 mmol/L (3.5-5.1); Protein, Total 7.5 g/dL (6.4-8.2); Sodium Level 141 mmol/L (136-145); Thyroid Stim Hormone (TSH) 0.31 uIU/mL (0.358-3.74)
[2021-04-27] MEDS: Pantoprazole Sodium 20 MG Tablet PO (09:06)
[2021-04-27] MEDS: Metoprolol(XL)Succ 50 MG Tablet PO (09:06)
[2021-04-27] MEDS: busPIRone 5 MG Tablet 10 MG PO (09:07)
[2021-04-27] MEDS: Tamsulosin HCl 0.4 MG Capsule PO (09:07)
[2021-04-27] MEDS: sulfaSALAzine 500 MG Tablet 1000 MG PO (09:07)
[2021-04-27] MEDS: Losartan Potassium 25 MG Tablet PO (09:07)
[2021-04-27] MEDS: Aspirin E.C. 81 MG Tablet PO (09:07)
[2021-04-27] MEDS: Hydroxychloroquine 200 MG Tablet 400 MG PO (09:07)
[2021-04-27] MEDS: Tolterodine Tartrate 4 MG CAP.SA PO (09:08)
[2021-04-27] MEDS: Enoxaparin 40 MG/0.4 ML Syringe SC (09:08)
[2021-04-27] MEDS: 0.9% Saline Lock 10 ML Syringe IV (12:06)
--- NOTE | 2021-04-27 12:19 | PCM.DC.SUM ---
Providers Date of Admission: 04/26/21 Primary Care Physician: Dr. Luis Ochoa MD Reason For Visit: ACUTE RESPIRATORY INSUFFICIENCY Diagnosis Discharge Diagnosis (1) Viral upper respiratory illness: Status: Acute Code(s): J06.9 - Acute upper respiratory infection, unspecified (2) Bronchospasm: Status: Acute Code(s): J98.01 - Acute bronchospasm (3) Hypoxia: Status: Acute Code(s): R09.02 - Hypoxemia Medications at Discharge Home Medications omeprazole 20 mg capsule,delayed release 20 mg PO DAILY 06/12/19 blood-glucose meter #1 ea 07/20/19 lancets 28 gauge #200 ea 07/20/19 blood sugar diagnostic #200 ea 09/24/19 hydroxychloroquine 200 mg tablet 400 mg PO DAILY tab 06/16/20 losartan 25 mg tablet 25 mg PO DAILY #90 tab 07/25/20 metformin 1,000 mg tablet 1,000 mg PO BID #180 tab 07/25/20 pravastatin 80 mg tablet See Rx Instructions .ROUTE .COMPLEX #90 tab 10/14/20 metoprolol succinate 50 mg tablet,extended release 24 hr 50 mg PO DAILY #90 tab 11/18/20 aspirin 81 mg tablet,delayed release 81 mg PO QDAY tab 01/19/21 glimepiride 2 mg tablet 2 mg PO BID #60 tab 01/19/21 tamsulosin 0.4 mg capsule 0.4 mg PO BID #180 cap 01/19/21 prednisone 5 mg tablet 15 mg PO BID tab 03/30/21 sulfasalazine 500 mg tablet 1 g PO BID tab 03/30/21 albuterol sulfate [Ventolin HFA] 1 - 2 puff INHALATION Q4H PRN PRN #1 device 04/24/21 benzonatate 200 mg PO TID PRN #60 cap 04/24/21 ipratropium-albuterol 3 ml INHALATION Q6H PRN #90 ml 04/24/21 nebulizer and compressor #1 ea 04/24/21 oxybutynin chloride 30 mg PO DAILY 04/24/21 prednisone 40 mg PO DAILY 5 Days #10 tab 04/24/21 amoxicillin-pot clavulanate [Augmentin XR] 1 tab PO BID #12 tab 04/27/21 prednisone 10 mg PO DAILY #28 tab 04/27/21 Hospital Course Operations None Procedures None Summary of Care Provided Minutes Spent on Discharge: 36 Hospital Course: Mr. Conley is a 65-year-old white male who presented to the emergency department [facility] on 04/26/2021 with a chief complaint of shortness of breath. He had been in the emergency department 2 days prior and had stable oxygen saturation but per documentation had diffuse rhonchi and wheezing. He had been given steroids and a breathing treatment and improved and therefore was discharged home. He returned yesterday with similar complaints. He reported at that time he had had some increased shortness of breath for approximately 2 to 3 weeks but the last 2 to 3 days prior to admission he had really gotten significantly worse. He denied any fever but stated he had been experiencing some intermittent chills. His was present and also was reporting upper respiratory infection. He complained of a cough that initially was productive of sputum but had not been recently, wheezing, and shortness of breath. Upon initial presentation his vital signs were relatively stable other than hypoxia on room air with an oxygen saturation of 86%. Given hypoxia he was placed on 2 L nasal cannula and had improvement in his saturations to 93 to 96% he was afebrile with mild tachycardia and tachypnea. His CBC was overall unimpressive but he did have a mild left shift. His D-dimer was normal and his BMP was unimpressive. His troponin was normal and a BNP was normal as well. A rapid Covid was negative. His chest x-ray showed underexpansion and chronic appearing interstitial markings with no infiltrates. His exam demonstrated marked diffuse wheezing and scattered rhonchi. In the emergency department he was initially treated with a azithromycin and a DuoNeb and request for admission was made. A viral PCR was obtained and was positive for RSV B. We also obtained strep pneumo and Legionella antigens. A strep pneumo antigen was positive. He was placed on IV antibiotics with Rocephin, steroids, and given aggressive pulmonary toilet. By the morning of 04/27/2021 he was feeling dramatically improved and requesting to go home. His clinical exam was improved with much less wheezing and his breath sounds were much less coarse. He did however require continued oxygen at 1 L to maintain oxygen saturations greater than 88% with exertion. Given his strep pneumo antigen positivity he was discharged home with Augmentin to complete a course of 7 days. He was also sent home with a prednisone taper. He is on prednisone at baseline for rheumatoid arthritis at 20 mg daily. He was discharged home with 40 mg x 4 days and 30 mg x 4 days and then to resume his home 20 mg dosage. Home oxygen was arranged for him. 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 He was discharged home in stable condition. Discharge diagnoses: Acute hypoxic respiratory insufficiency RSV B Strep pneumo pneumonia DM-controlled CAD Hyperlipidemia Hypertension History of atrial fibrillation BPH Incontinence Rheumatoid arthritis Chronic steroid use Chronic immunosuppression Physical Exam Const alert, oriented x3 and no apparent distress Constitutional Narrative: And much more comfortable in the last 24 hours, nontoxic, no respiratory distressMorbidly obese white male sitting up in bed General Appearance: cooperative, comfortable, well kempt and well developed Orientation / Consciousness: awake Exam Limitations: no limitations Nutritional Appearance: morbidly obese HEENT normocephalic, head/scalp atraumatic, hearing grossly normal bilaterally and moist oral mucous membranes HEENT Narrative: , No thrush, Mallampati 3-4 Eyes PERRL, EOMs intact bilaterally and conjunctivae normal Neck no lymphadenopathy, supple, no JVD and no carotid bruits Resp normal respiratory effort, No no retractions and No no use of accessory muscles Resp Narrative: Still with mild wheeze but overall clinical exam is much improved since admission, no respiratory distress or shortness of breath with conversation Auscultation: wheezes; Negative for crackles, rales or rhonchi Cardio regular rate, regular rhythm, S1 normal heart sound, S2 normal heart sound, no murmurs, no rub, no gallops, no clicks and no JVD GI normal to inspection, nondistended, normoactive bowel sounds, soft to palpation, non-tender and non-distended Extremity normal to inspection and no clubbing, cyanosis or edema Skin no rashes or lesions noted, no wounds, skin turgor normal, no jaundice, no petechiae and no mottling Neuro oriented x3, CN's II-XII intact bilaterally, moves all extremities and no focal motor deficits Sensorium / Orientation: awake and alert Psych affect normal Weight / BMI Weight Weight: 130.1 kg Body Mass Index (BMI) 44.9 ABG / Lab / Microbiology Data Result Diagrams: 04/27/21 06:00 04/27/21 06:00 Laboratory: Laboratory Results - last 24 hr 04/26/21 12:07: POC Glucose 89 04/26/21 12:45: Troponin I High Sens 9 04/26/21 14:10: Troponin I High Sens 12 04/26/21 16:31: POC Glucose 160 H 04/26/21 19:10: Troponin I High Sens 10 04/26/21 23:14: POC Glucose 182 H 04/27/21 05:16: POC Glucose 190 H 04/27/21 06:00: WBC 10.2, RBC 4.30 L, Hgb 14.8, Hct 43.9, MCV 102.1 H, MCH 34.4 H, MCHC 33.7, RDW Std Deviation 51.8 H, RDW Coeff of Jaqueline 13.6, Plt Count 208, MPV 11.1, Immature Gran % (Auto) 0.500, Neut % (Auto) 83.7 H, Lymph % (Auto) 8.8 L, [place] % (Auto) 6.9, Eos % (Auto) 0.0, Baso % (Auto) 0.1, Absolute Neuts (auto) 8.5 H, Absolute Lymphs (auto) 0.89, Nucleated RBC % 0 04/27/21 06:00: Sodium 141, Potassium 4.3, Chloride 105, Carbon Dioxide 28.0, Anion Gap 8, BUN 14, Creatinine 0.87, Estim Creat Clear Calc 77.03, Est GFR (MDRD) Af Amer 113, Est GFR (MDRD) Non-Af 93, BUN/Creatinine Ratio 16.2, Glucose 175 H, Calcium 9.5, Phosphorus 3.6, Magnesium 2.2, Total Bilirubin 0.50, AST 36, ALT 90 H, Alkaline Phosphatase 57, Total Protein 7.5, Albumin 3.5, Globulin 4.0, Albumin/Globulin Ratio 0.9, TSH 0.31 L Microbiology: Microbiology 04/26/21 16:25 Urine, Clean Catch Legionella Antigen - Final 04/26/21 16:25 Urine, Clean Catch Streptococcus pneumoniae Antigen (M - Final Streptococcus pneumonia Ag 04/26/21 10:42 Mucosa - Nasopharyngeal Respiratory Panel (PCR) - Final RSV B D/C Instructions Discharge Diet: Low fat / Low cholesterol and 1800 Calorie Control Diet Return to work on: 04/29/21 Meaningful Use Info Meaningful Use Diagnoses (Choose all that apply): None applicable Discharge Plan Admission Admit Date/Time: 04/26/21 10:33 Primary Reason for Your Visit: Acute respiratory insufficiency secondary to RSV and strep pneumo pneumonia Attending Provider: Blaire Sullivan Primary Care Provider: Luis Ochoa Patient Instructions: RSV (Respiratory Syncytial Virus) Discharge Orders/Prescriptions Prescriptions: New amoxicillin-pot clavulanate [Augmentin XR] 1,000-62.5 mg tablet extended release 12 hr 1 tab PO BID Qty: 12 RF: 0 prednisone 10 mg tablets,dose pack 10 mg PO DAILY Qty: 28 RF: 0 Continued omeprazole 20 mg capsule,delayed release(DR/EC) 20 mg PO DAILY RF: 0 (DME) lancets [FreeStyle Lancets] 28 gauge misc See Rx Instructions .ROUTE .MEDSUPPLY Qty: 200 RF: 3 (DME) blood-glucose meter [FreeStyle Lite Meter] Kit See Rx Instructions .ROUTE .MEDSUPPLY Qty: 1 RF: 0 hydroxychloroquine 200 mg tablet 400 mg PO DAILY RF: 0 metoprolol succinate 50 mg tablet extended release 24 hr 50 mg PO DAILY Qty: 90 RF: 3 prednisone 5 mg tablet 15 mg PO BID RF: 0 sulfasalazine 500 mg tablet 1 g PO BID RF: 0 aspirin [Adult Aspirin Regimen] 81 mg tablet,delayed release (DR/EC) 81 mg PO QDAY RF: 0 glimepiride 2 mg tablet 2 mg PO BID Qty: 60 RF: 3 oxybutynin chloride 15 mg Tablet Extended Release 24hr 30 mg PO DAILY RF: 0 prednisone 20 mg tablet 40 mg PO DAILY 5 Days Qty: 10 RF: 0 benzonatate 100 mg capsule 200 mg PO TID PRN (Reason: cough) Qty: 60 RF: 0 albuterol sulfate [Ventolin HFA] 90 mcg/actuation HFA aerosol inhaler 1 - 2 puff inhalation Q4H PRN PRN (Reason: Wheezing) Qty: 1 RF: 0 ipratropium-albuterol 0.5 mg-3 mg(2.5 mg base)/3 mL solution for nebulization 3 ml inhalation Q6H PRN (Reason: shortness of breath or wheezing) Qty: 90 RF: 1 (DME) nebulizer and compressor Device See Rx Instructions .ROUTE .MEDSUPPLY Qty: 1 RF: 0 (DME) FreeStyle Lite Strips Strip See Rx Instructions .ROUTE .MEDSUPPLY Qty: 200 RF: 3 losartan 25 mg tablet 25 mg PO DAILY Qty: 90 RF: 3 metformin 1,000 mg tablet 1,000 mg PO BID Qty: 180 RF: 3 pravastatin 80 mg tablet See Rx Instructions .ROUTE .COMPLEX Qty: 90 RF: 3 tamsulosin 0.4 mg capsule 0.4 mg PO BID Qty: 180 RF: 3 Referrals / Follow Up: Fabio Ponce DO [STAFF PHYSICIAN] - Within 3 Months Luis Ochoa MD [Primary Care Provider] - In 1 Week Disposition Disposition (needs filled in before D/C Order can be placed): Home, Self Care Charges/Coding Visit Charges Inpatient E&M: [id number] [facility]
--- NOTE | 2021-04-27 14:11 | CASEMGMT ---
SIMEON NOGUEIRA in to discuss [place] form with patient. SIMEON NOGUEIRA explained [place] form, patient voiced understanding. Pt signed form and filed in chart. Pt provided with a copy of signed [place] form. Pt qualifies for home O2, provided pt with list of local in network DME companies, pt chose [facility]. TC to Patient had no further questions or concerns at this time. TC to [facility], spoke with Kavita, aware referral will be faxed. They will bring portable tank for dc. Faxed referral at this time.
[2021-04-27 15:20] LABS: Bedside Glucose 208 mg/dL (70-110)
[2021-04-27 16:00] LABS: Bedside Glucose 209 mg/dL (70-110)
--- NOTE | 2021-04-27 17:57 | NURSING ---
SIMEON Jones had reviewed discharge instructions with patient. Pt was just awaiting the O2 to be delivered. pt denies questions. pt taken to car via wheelchair.
== END 2021-04-27 17:57 | disposition home or self-care (01) ==
LOC: ED 10:38 → MS3 10:52
PROVIDERS: Admitting Provider Internal Medicine; Emergency Provider Emergency Medicine; PCP Family Medicine; Visit Provider Internal Medicine
DX: J06.9 Acute upper respiratory infection, unspecified (principal); J98.01 Acute bronchospasm; R09.02 Hypoxemia; I25.10 Atherosclerotic heart disease of native coronary artery without angina pectoris; I48.0 Paroxysmal atrial fibrillation; K21.9 Gastro-esophageal reflux disease without esophagitis; E78.5 Hyperlipidemia, unspecified; I10 Essential (primary) hypertension; N40.1 Benign prostatic hyperplasia with lower urinary tract symptoms; R32 Unspecified urinary incontinence; E11.40 Type 2 diabetes mellitus with diabetic neuropathy, unspecified; M06.9 Rheumatoid arthritis, unspecified; Z79.899 Other long term (current) drug therapy; Z79.82 Long term (current) use of aspirin; Z79.84 Long term (current) use of oral hypoglycemic drugs; Z87.891 Personal history of nicotine dependence; Z79.52 Long term (current) use of systemic steroids; R06.02 Shortness of breath
CPT/HCPCS: 36415; 71045; 80048; 80053; 82962; 83735; 83880; 84100; 84443; 84484; 85025; 85379; 87449; 87633; 87635; 93005; 94640; 94667; 94668; 94762; 96365; 96372; 96375; 96376; 99218; 99251; 99285; J7040; U0005; A4216; G0378; G0463; J0696; J2405; U0003

== ENCOUNTER 2021-06-19 17:54 | Observation (INO) | payer MEDICARE, OTHER, SELFPAY ==
[2021-06-15 11:58] LABS: Partial Thromboplast Time 24.4 Seconds (24.1-36.2); Prothrombin Time (Protime)PT. 12.5 SECONDS (11.7-14.9)
[2021-06-15 12:06] LABS: Hemoglobin A1c 6.3 % (3.8-5.6)
--- NOTE | 2021-06-15 12:26 | EKG12_ITS ---
Test Reason : PRE-OP Blood Pressure : / mmHG Vent. Rate : 081 BPM Atrial Rate : 081 BPM P-R Int : 156 ms QRS Dur : 090 ms QT Int : 390 ms P-R-T Axes : 036 -20 033 degrees QTc Int : 453 ms Normal sinus rhythm Normal ECG Confirmed by SHREYAS RIOS, KIKO ([id number]), editor index SAMANTHA WOLFE ([id number]) on 06/16/2021 9:26:51 AM Referred By: LUIS Confirmed By:KIKO PRITCHETT MD
[2021-06-15 12:30] LABS: AST(SGOT) 20 U/L (15-37); Alanine Aminotransfer ALT/SGPT 42 U/L (16-61); Albumin, Serum 3.5 g/dL (3.2-5.0); Alkaline Phosphatase 59 U/L (45-117); Bilirubin, Direct 0.09 mg/dL (0.00-0.30); Globulin 3.3 g/dL (2.2-4.2); Protein, Total 6.8 g/dL (6.4-8.2)
[2021-06-19] VITALS (10 sets, daily range): BP systolic 132–172; BP diastolic 72–94; PULSE 72–87; RESP 15–19; TEMP 36.4–36.9; O2SAT 90–98; BMI 44.1
[2021-06-19] MEDS: Lactated Ringers 1,000 ML 15 ML IV ×2 (10:27→15:18)
[2021-06-19 10:36] LABS: Bedside Glucose 86 mg/dL (70-110)
--- NOTE | 2021-06-19 12:00 | PROS_PTH ---
PATIENT: LULY SMART LOC: MS3 U#:[id number] AGE/SX: 66/M ROOM: [facility] RE06/19/[address]: Dr. Desean Rivas MD : [id number] BED: 1 DIS: 06/20/2021 SPEC #: [id number] RECD: 06/19/21 15:52 STATUS: ANTHONY PENALOZA #: [id number] JEROME: 06/19/21 12:[address]: Desean Rivas DEPT: SURGICAL PATHOLOGY RECD BY: Maegan Coronado ENTERED: 06/22/21 08:05 SP TYPE: TURP OTHR DR: Dr. Luis Ochoa MD Tissues: Prostate, NOS Procedures: Surgery Specimen Level IV HEADER OPERATION: Cysto, TUR prostate, Olympus PRE-OP DIAGNOSIS: BPH, frequency of micturition TISSUE SUBMITTED: Prostate tissue MICROSCOPIC DIAGNOSIS Prostate, transurethral resection: Benign nodular hyperplasia, glandular and stromal types. Mild chronic inflammation. AM:becka 06/23/2021 MICROSCOPIC DESCRIPTION Slides are reviewed. GROSS DESCRIPTION Received is one container labeled with the patient's name and designated prostate tissue. The specimen consists of multiple irregular fragments of pink-galvan, rubbery, soft tissue that in aggregate weigh 10.4 gm and measure in aggregate 5 x 5 x 1 cm. A few fragments of brownish-black stones are also noted. The entire specimen is submitted in ten cassettes. The stones are for gross identification only. / SJ:becka 06/22/2021 TC:5 CPT: 33822
--- NOTE | 2021-06-19 14:13 | HP.PCM_ITS ---
HPI - General HPI Narrative LULY SMART, is a 66 M who presents [facility] Medical History (Updated 06/12/21 @ 10:14 by Carol Henriquez) PAUL (acute kidney injury) Alcohol use Atherosclerotic heart disease of [place] coronary artery without angina pectoris BPH (benign prostatic hyperplasia) Cardiology follow-up encounter Diabetes Easy bruising Edentulous Essential hypertension Former smoker GERD (gastroesophageal reflux disease) History of atrial fibrillation History of echocardiogram History of edema History of steroid therapy History of stress test Hyperlipidemia Hypertension Leg cramps Liver disease 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, correction, current use Neuropathy Paroxysmal atrial fibrillation Paroxysmal atrial flutter Presence of stent in coronary artery (~03/15/06) Pulmonary nodule Pure hypercholesterolemia Rheumatoid aortitis Home Medications omeprazole 20 mg capsule,delayed release 20 mg PO DAILY 06/12/19 [History Last Taken Unknown] blood-glucose meter #1 ea 07/20/19 [Rx Last Taken Unknown] lancets 28 gauge #200 ea 07/20/19 [Rx Last Taken Unknown] blood sugar diagnostic #200 ea 09/24/19 [Rx Last Taken Unknown] hydroxychloroquine 200 mg tablet 400 mg PO DAILY tab 06/16/20 [History Last Taken Unknown] losartan 25 mg tablet 25 mg PO DAILY #90 tab 07/25/20 [Rx Last Taken Unknown] metformin 1,000 mg tablet 1,000 mg PO BID #180 tab 07/25/20 [Rx Last Taken 06/19/21] pravastatin 80 mg tablet See Rx Instructions .ROUTE .COMPLEX #90 tab 10/14/20 [Rx Last Taken Unknown] metoprolol succinate 50 mg tablet,extended release 24 hr 50 mg PO DAILY #90 tab 11/18/20 [Rx Last Taken 06/19/21] aspirin 81 mg tablet,delayed release 81 mg PO QDAY tab 01/19/21 [History Last Taken 06/11/21] glimepiride 2 mg tablet 2 mg PO BID #60 tab 01/19/21 [Rx Last Taken Unknown] prednisone 5 mg tablet 5 mg PO QHS tab 03/30/21 [History Last Taken Unknown] sulfasalazine 500 mg tablet 1 g PO BID tab 03/30/21 [History Last Taken Unknown] albuterol sulfate [Ventolin HFA] 1 - 2 puff INHALATION Q4H PRN PRN #1 device 04/24/21 [Rx Last Taken Unknown] nebulizer and compressor #1 ea 04/24/21 [Rx Last Taken Unknown] prednisone 10 mg PO DAILY #28 tab 04/27/21 [Rx Last Taken Unknown] Allergy/AdvReac Type Severity Reaction Status Date / Time No Known Allergies Allergy Verified 06/19/21 10:21 Family History Son Diabetes Mother Myocardial infarction, Onset Age: 73 Father No problems noted. Son Diabetes Surgical History (Updated 06/12/21 @ 09:08 by Carol Henriquez) H/O cardiac radiofrequency ablation H/O heart artery stent History of arthroplasty of left shoulder History of arthroplasty of right shoulder History of cardiac radiofrequency ablation (RFA) (~01/20/17) History of carpal tunnel surgery History of hand surgery History of sinus surgery Postsurgical percutaneous transluminal coronary angioplasty (PTCA) status (~03/15/06) Presence of coronary angioplasty implant and graft (~03/15/06) Social History Smoking Status: Former smoker how long ago did patient quit smokin, 2pk/day second hand exposure: Yes alcohol intake: current details: rare substance use type: does not use what type of physical activity do you participate in: none Vital Signs Vital Signs Vital Signs: 06/19/21 10:22 06/19/21 14:08 Temperature 97.7 F L 97.5 F L Temperature Source Temporal Temporal Pulse Rate 77 87 Respiratory Rate 16 19 H Respiratory Pattern Normal Normal Blood Pressure 156/75 H 149/94 H Blood Pressure Mean 102 112 Blood Pressure Source Monitor Monitor Blood Pressure Position Semi-Fowlers Semi-Fowlers Blood Pressure Location Right Arm Left Arm Baseline BP 156/72 Pulse Ox 95 94 Oxygen Delivery Method Room Air Room Air Weight Weight: 131.9 kg Body Mass Index (BMI) 44.1 Results Lab / Micro Data Labs: Laboratory Results - last 24 hr 06/19/21 10:14: POC Glucose 86
--- NOTE | 2021-06-19 14:14 | PCM.DC ---
Discharge Instructions Diet Discharge Diet: No restrictions Activity Discharge Activity: Return to Normal Activity and May Not Drive (while taking narcotic pain medications.) Dressing / Incision Call your doctor if you observe: Fever of 101 or Higher Follow Up Care Please Follow Up With: Desean Rivas MD When: Call [phone] for an appointment Test Results: Test results from this visit will be discussed in further detail at your follow-up appointment, if applicable. Discharge Plan Admission Primary Reason for Your Visit: CARINA Attending Provider: Desean Rivas Primary Care Provider: Luis Ochoa Instructions Patient Instructions: CARINA Home Recovery Discharge Orders/Prescriptions Prescriptions: Continued omeprazole 20 mg capsule,delayed release(DR/EC) 20 mg PO DAILY RF: 0 (DME) lancets [FreeStyle Lancets] 28 gauge misc See Rx Instructions .ROUTE .MEDSUPPLY Qty: 200 RF: 3 (DME) blood-glucose meter [FreeStyle Lite Meter] Kit See Rx Instructions .ROUTE .MEDSUPPLY Qty: 1 RF: 0 hydroxychloroquine 200 mg tablet 400 mg PO DAILY RF: 0 metoprolol succinate 50 mg tablet extended release 24 hr 50 mg PO DAILY Qty: 90 RF: 3 prednisone 5 mg tablet 5 mg PO QHS RF: 0 sulfasalazine 500 mg tablet 1 g PO BID RF: 0 glimepiride 2 mg tablet 2 mg PO BID Qty: 60 RF: 3 albuterol sulfate [Ventolin HFA] 90 mcg/actuation HFA aerosol inhaler 1 - 2 puff inhalation Q4H PRN PRN (Reason: Wheezing) Qty: 1 RF: 0 (DME) nebulizer and compressor Device See Rx Instructions .ROUTE .MEDSUPPLY Qty: 1 RF: 0 prednisone 10 mg tablets,dose pack 10 mg PO DAILY Qty: 28 RF: 0 (DME) FreeStyle Lite Strips Strip See Rx Instructions .ROUTE .MEDSUPPLY Qty: 200 RF: 3 losartan 25 mg tablet 25 mg PO DAILY Qty: 90 RF: 3 metformin 1,000 mg tablet 1,000 mg PO BID Qty: 180 RF: 3 pravastatin 80 mg tablet See Rx Instructions .ROUTE .COMPLEX Qty: 90 RF: 3 Held aspirin [Adult Aspirin Regimen] 81 mg tablet,delayed release (DR/EC) 81 mg PO QDAY RF: 0 Hold Instructions: Resume on 07/03/21. Discontinued oxybutynin chloride 15 mg Tablet Extended Release 24hr 30 mg PO DAILY RF: 0 tamsulosin 0.4 mg capsule 0.4 mg PO BID Qty: 180 RF: 3 Referrals / Follow Up: Desean Rivas MD [STAFF PHYSICIAN] - Luis Ochoa MD [Primary Care Provider] - Disposition Disposition (needs filled in before D/C Order can be placed): Home, Self Care
--- NOTE | 2021-06-19 14:14 | PCM.OPRPT ---
Report of Operation Date of Procedure: 06/19/21 Pre-Operative Diagnosis: bph with obstruction Post-Operative Diagnosis: same Surgery/Procedure Performed:: TURP Description of Surgical Findings:: In the preoperative setting I discussed with the patient how the surgery would be done with expect afterwards. We discussed how a prostate resection is done and we discussed the risk of the surgery including, bleeding, infection, retrograde ejaculation, changes with ejaculation or intercourse,. We discussed the possibility that the resection of the prostate may not alleviate his urinary symptoms. We discussed the small risk of developing scar tissue along the urethral channel and strictures. We also discussed the chance of the prostate could grow back and he may need further surgery or treatment in the future for prostate problems. Patient was taken back to the operating room, timeout procedure was performed, he was identified and marked and placed on the operating room table. He underwent general anesthesia. He was placed in dorsolithotomy position. Penis and testicles were prepped and draped in usual sterile fashion. Went into the bladder using the visual obturator with a resectoscope. Once inside the bladder identified the right and left ureteral orifice. I then identified the prostate and the anatomy of the prostate. I marked out the area of the sphincter and the verumontanum was identified. I then proceeded with the prostate resection first resected the median lobe. And then resected the right lobe of the prostate. Then to resect the left lobe of the prostate. I then resected the apical tissue of the prostate. This was a complete resection of all obstructive tissue to improve voiding and relieve obstruction. I then made sure that there was no injury to the sphincter or the verumontanum was still intact. At the end of the resection all the chips were Ellik out of the bladder. I then identified the left and right ureteral orifice and these were confirmed to be in good position and effluxing and not injured. The resectoscope was removed, a 22 Maltese catheter was placed into the bladder on continuous irrigation. And the urine was fairly light pink color and draining normally. He was taken back to the PACU in good condition. CPT 40383 Surgeon: nahum Type of Anesthesia: General Drains: 22fr [address] way Admit VTE Documentation VTE Present on Admission: No VTE Mechan Device Prophylaxis: SCD's VTE Pharm Prophylaxis ordered?: No
[2021-06-19 14:26] LABS: Bedside Glucose 75 mg/dL (70-110)
[2021-06-19] MEDS: HYDROmorphone 1 MG/ML Syringe IV (14:32)
[2021-06-19] MEDS: Glimepiride 2 MG Tablet PO (17:56)
[2021-06-19] MEDS: metFORMIN HCl 1,000 MG Tablet 1000 MG PO (17:56)
[2021-06-19] MEDS: Acetaminophen 500 MG Tablet PO (17:58)
[2021-06-19] MEDS: Ibuprofen 600 MG Tablet PO (20:07)
[2021-06-19] MEDS: predniSONE 5 MG Tablet PO (20:07)
[2021-06-19] MEDS: sulfaSALAzine 500 MG Tablet 1000 MG PO (20:07)
--- NOTE | 2021-06-19 23:04 | NURSING ---
This nurse offered to ambulate patient as he is post op. COMMUNICATIONS ANALYST and this nurse stood patient at bedside. Patient denies any dizziness. States that he feels steady. Able to walk in room without complication.
[2021-06-20] MEDS: metFORMIN HCl 1,000 MG Tablet 1000 MG PO (08:00)
[2021-06-20] MEDS: predniSONE 10 MG Tablet PO (08:00)
[2021-06-20] MEDS: Glimepiride 2 MG Tablet PO (08:00)
[2021-06-20 08:15] VITALS: PULSE 84
[2021-06-20] MEDS: sulfaSALAzine 500 MG Tablet 1000 MG PO (08:15)
[2021-06-20] MEDS: Hydroxychloroquine 200 MG Tablet 400 MG PO (08:15)
[2021-06-20] MEDS: Pantoprazole Sodium 20 MG Tablet PO (08:15)
[2021-06-20] MEDS: Losartan Potassium 25 MG Tablet PO (08:15)
[2021-06-20] MEDS: Metoprolol(XL)Succ 50 MG Tablet PO (08:15)
== END 2021-06-20 11:15 | disposition home or self-care (01) ==
LOC: SDC 17:58 → MS3 17:58
PROVIDERS: Anesthesiology; Admitting Provider Urology; PCP Family Medicine; Visit Provider Urology
PROC: (CPT 52601; principal; 2021-06-19 11:50)
DX: N40.1 Benign prostatic hyperplasia with lower urinary tract symptoms (principal); M06.9 Rheumatoid arthritis, unspecified; I48.0 Paroxysmal atrial fibrillation; Z68.41 Body mass index [BMI] 40.0-44.9, adult; E11.9 Type 2 diabetes mellitus without complications; I25.10 Atherosclerotic heart disease of native coronary artery without angina pectoris; Z87.891 Personal history of nicotine dependence; N13.8 Other obstructive and reflux uropathy; I10 Essential (primary) hypertension; K21.9 Gastro-esophageal reflux disease without esophagitis; E78.5 Hyperlipidemia, unspecified; Z79.899 Other long term (current) drug therapy; Z79.84 Long term (current) use of oral hypoglycemic drugs; E66.9 Obesity, unspecified; R35.0 Frequency of micturition; Z79.52 Long term (current) use of systemic steroids
CPT/HCPCS: 52601; 36415; 80076; 82962; 83036; 85610; 85730; 88305; 93005; 99218; 99406; J7120; G0378; J2405

== ENCOUNTER 2021-07-27 16:50 | Outpatient (CLI) | payer MEDICARE, OTHER, SELFPAY | END 2021-07-27 23:59 | disposition home or self-care (01) | LOC: LABSPEC 16:51 | PROVIDERS: PCP Family Medicine; Referring Provider Urology; Visit Provider Urology | DX: R31.9 Hematuria, unspecified (principal) | CPT/HCPCS: 87086; 87088; 87186 ==

== ENCOUNTER 2021-08-10 17:04 | Outpatient (CLI) | payer MEDICARE, OTHER, SELFPAY | END 2021-08-10 23:59 | disposition home or self-care (01) | LOC: LABSPEC 17:05 | PROVIDERS: PCP Family Medicine; Referring Provider Urology; Visit Provider Urology | DX: R35.0 Frequency of micturition (principal) | CPT/HCPCS: 87086; 87088 ==

== ENCOUNTER 2021-08-31 03:41 | Emergency (ER) | payer MEDICARE, OTHER, SELFPAY ==
[2021-08-31 03:42] VITALS: PULSE 80; RESP 20; TEMP 35.4; O2SAT 94; BMI 41.4
--- NOTE | 2021-08-31 04:00 | CT_ITS ---
EXAM: CTA Chest and CTA Abdomen and Pelvis W/ Contrast Injection (and W/O Contrast Images if performed) HISTORY: chest pain TECHNIQUE: CTA Chest and CTA Abdomen and Pelvis W/ Contrast Injection (and W/O Contrast Images if performed) COMPARISON: CT chest 07/22/2018. LIMITATIONS: None. AORTA: Mild thoracic aortic aneurysm again seen measuring 4.2 cm at the sinuses of Valsalva, slightly increased in size compared to the prior. Focal aneurysmal dilatation of the infrarenal abdominal aorta measuring up to 3 cm in AP dimension. Moderate atherosclerotic calcifications. No aortic dissection. CHEST: LUNGS: Scattered bilateral groundglass opacities. Bilateral increased peripheral reticulations. PULMONARY VESSELS: Normal. PLEURA: Normal MEDIASTINUM: Coronary artery and aortic valvular calcifications.. ABDOMEN/PELVIS: LIVER: Normal. GALLBLADDER/BILE DUCTS: Layering small gallstones or sludge. PANCREAS: Normal. SPLEEN: Normal. ADRENAL GLANDS: Normal. KIDNEYS/URETERS/BLADDER: Mild left hydroureteronephrosis and perinephric stranding due to a 5 mm calculus in the proximal left ureter. Additional nonobstructive left nephrolithiasis. 6.4 x 4.2 cm cystic structure arising from the superior pole the right kidney, incompletely evaluated. RETROPERITONEUM: Normal. BOWEL/MESENTERY: Redemonstration of an arterially enhancing 16mm structure in the gastric cardia adherent to the wall, increased in size compared to the prior. Scattered colonic diverticulosis without discrete evidence of acute diverticulitis. The colon is largely decompressed, limiting evaluation. No bowel dilatation or bowel wall thickening. APPENDIX: Not visualized. PERITONEUM: Normal. REPRODUCTIVE ORGANS: Normal. BONES/SOFT TISSUES: No acute abnormality. OTHER: Moderate fat-containing umbilical hernia with 16mm neck. CONCLUSION: 1. Mild ascending thoracic aortic aneurysm measuring 4.2 cm, slightly increased in size compared to the prior. 2. Mild infrarenal abdominal aortic aneurysm measuring 3 cm. 3. Mild left hydroureteronephrosis due to a 5 mm calculus in the proximal left ureter. 4. Additional nonobstructive left nephrolithiasis. 5. Scattered bilateral groundglass opacities, may be due to expiratory phase or infectious/inflammatory changes. 6. Bilateral increased peripheral reticulations, suggestive of chronic inflammatory changes or interstitial fibrotic changes. 7. Arterially enhancing 16mm gastric cardia structure, increased in size compared to the prior. Likely represents vascular structure, however gastroenterology consultation recommended. 8. Additional chronic findings as above. Electronically Signed: Kain Guy MD at 5:17 EDT , CT/CTA Chst, Abd, Pel W and/or WO
--- NOTE | 2021-08-31 04:01 | EX.ED.DYSGE1 ---
HPI History of Present Illness Chief Complaint: Complaint Narrative Narrative: Patient presents with multiple complaints. He tells me just a few hours ago he started having left testicle pain. Now he has abdominal pain, it is epigastric but also diffusely throughout, he also has some chest pain and back pain. The chest pain started after he vomited. It is retrosternal. No recent fever or chills. No recent urinary symptoms. No recent rash. No cough or congestion. He tells me the pain is quite terrible. 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 Neuropathy Paroxysmal atrial fibrillation Paroxysmal atrial flutter Presence of stent in coronary artery (~03/15/06) Pulmonary nodule Pure hypercholesterolemia Rheumatoid aortitis Home Medications omeprazole 20 mg capsule,delayed release 20 mg PO DAILY 06/12/19 [History Last Taken Unknown] blood-glucose meter #1 ea 07/20/19 [Rx Last Taken Unknown] lancets 28 gauge #200 ea 07/20/19 [Rx Last Taken Unknown] blood sugar diagnostic #200 ea 09/24/19 [Rx Last Taken Unknown] hydroxychloroquine 200 mg tablet 400 mg PO DAILY tab 06/16/20 [History Last Taken Unknown] losartan 25 mg tablet 25 mg PO DAILY #90 tab 07/25/20 [Rx Last Taken Unknown] metformin 1,000 mg tablet 1,000 mg PO BID #180 tab 07/25/20 [Rx Last Taken 06/19/21] pravastatin 80 mg tablet See Rx Instructions .ROUTE .COMPLEX #90 tab 10/14/20 [Rx Last Taken Unknown] metoprolol succinate 50 mg tablet,extended release 24 hr 50 mg PO DAILY #90 tab 11/18/20 [Rx Last Taken 06/19/21] aspirin 81 mg tablet,delayed release 81 mg PO QDAY tab 01/19/21 [History Last Taken 06/11/21] glimepiride 2 mg tablet 2 mg PO BID #60 tab 01/19/21 [Rx Last Taken Unknown] prednisone 5 mg tablet 5 mg PO QHS tab 03/30/21 [History Last Taken Unknown] sulfasalazine 500 mg tablet 1 g PO BID tab 03/30/21 [History Last Taken Unknown] albuterol sulfate [Ventolin HFA] 1 - 2 puff INHALATION Q4H PRN PRN #1 device 04/24/21 [Rx Last Taken Unknown] nebulizer and compressor #1 ea 04/24/21 [Rx Last Taken Unknown] prednisone 10 mg PO DAILY #28 tab 04/27/21 [Rx Last Taken Unknown] sulfamethoxazole-trimethoprim [Bactrim DS] 1 tab PO BID #14 tab 08/31/21 [Rx Last Taken Unknown] Allergy/AdvReac Type Severity Reaction Status Date / Time No Known Allergies Allergy Verified 08/31/21 03:50 Family History Son Diabetes Mother Myocardial infarction, Onset Age: 73 Father No problems noted. Son Diabetes Surgical History H/O cardiac radiofrequency ablation H/O heart artery stent History of arthroplasty of left shoulder History of arthroplasty of right shoulder History of cardiac radiofrequency ablation (RFA) (~01/20/17) History of carpal tunnel surgery History of hand surgery History of sinus surgery Postsurgical percutaneous transluminal coronary angioplasty (PTCA) status (~03/15/06) Presence of coronary angioplasty implant and graft (~03/15/06) S/P TURP Social History Smoking Status: Former smoker how long ago did patient quit smokin, 2pk/day second hand exposure: Yes alcohol intake: current details: rare substance use type: does not use what type of physical activity do you participate in: none ROS ROS ED ROS Narrative Past medical history: Reviewed, it is extensive, includes sleep apnea, diabetes, rheumatoid arthritis, atrial fibrillation, BPH, hypercholesterolemia Medications: Reviewed in medical record Social history: Noncontributory Review of systems: All systems negative except as indicated General: No fever Eyes: No visual changes ENT: No upper airway congestion, normal voice Neck: No neck pain Cardiovascular: Chest pain as in HPI Respiratory: No shortness of breath or cough Gastrointestinal: Abdominal pain. No constipation or diarrhea. 1 episode of vomiting prior to arrival Genitourinary: Left testicle pain Musculoskeletal: Denies myalgias no difficulty with ambulation Back: Back pain Skin: No rash Neurological: No memory loss, confusion or any focal weakness Psych: No recent behavioral changes Hematologic: No easy bleeding or easy bruising EXAM Physical Exam Narrative Exam Narrative: Physical exam General: Patient appears in distress Head: Normocephalic, Atraumatic Eyes: Conjunctiva not pale ENT: Moist mucous membranes Neck: Supple, Nontender, No lymphadenopathy Cardiovascular: Regular rate, Regular rhythm Respiratory: No distress, CTA bilaterally Abdomen: Soft, there is tenderness throughout the abdomen including epigastrium left and right sided of the abdomen. No guarding or rebound. Back: I cannot palpate any tenderness he may have some left CVA tenderness but he has pain throughout his back although I cannot reproduce it. Extremities: Nontender, trace bilateral symmetric edema Skin: Normal color, No rash Neurological: Alert, Normal Strength, Normal Sensation Psychological: Anxious appearing Const Vital Signs: 08/31/21 03:42 08/31/21 03:51 08/31/21 04:22 Temperature 95.8 F L Temperature Source Temporal Pulse Rate 80 Respiratory Rate 20 H Respiratory Pattern Normal Pulse Ox 94 94 Oxygen Delivery Method Room Air Nasal Cannula Oxygen Flow Rate (L/min) 2 MDM MDM MDM Narrative Medical decision making narrative: Patient appears well. He did improve after analgesia. He was found to have a 5 mm stone with some hydronephrosis. He may have the start of a UTI. I will treat him with antibiotics, analgesia for home and urology follow-up. If anything worsens patient is to return. Lab Data Labs: Laboratory Results - last 24 hr 08/31/21 08/31/21 08/31/21 03:45 03:45 05:35 WBC 10.9 RBC 4.36 L Hgb 14.5 Hct 42.3 MCV 97.0 H MCH 33.3 H MCHC 34.3 RDW Std Deviation 45.9 H RDW Coeff of Jaqueline 12.8 Plt Count 217 MPV 11.1 Immature Gran % (Auto) 0.600 Neut % (Auto) 67.9 Lymph % (Auto) 18.4 L [place] % (Auto) 9.8 Eos % (Auto) 2.3 Baso % (Auto) 1.0 Absolute Neuts (auto) 7.4 Absolute Lymphs (auto) 2.00 Nucleated RBC % 0 Sodium 138 Potassium 3.4 L Chloride 107 Carbon Dioxide 23.0 Anion Gap 8 BUN 18 Creatinine 0.94 Estim Creat Clear Calc 72.77 Est GFR (MDRD) Af Amer 103 Est GFR (MDRD) Non-Af 85 BUN/Creatinine Ratio 19.2 Glucose 269 H Calcium 8.5 Total Bilirubin 0.30 AST 29 ALT 46 Alkaline Phosphatase 77 Troponin I High Sens 4 Total Protein 7.0 Albumin 3.7 Globulin 3.3 Albumin/Globulin Ratio 1.1 Lipase 243 Urine Color Yellow Urine Clarity Clear Urine pH 6.0 Ur Specific [place] 1.010 Urine Protein 15 H Urine Glucose (UA) 250 H Urine Ketones 50 H Urine Occult Blood 150 H Urine Nitrite Negative Urine Bilirubin Negative Urine Urobilinogen Normal Ur Leukocyte Esterase 100 H Urine RBC 10-25 SEEN Urine WBC 10-25 SEEN Ur Squamous Epith Cells 0 SEEN Urine Bacteria 1+ Urine Mucus 0 SEEN Radiography Diagnostic Testing: Clinical Impression(s) from Imaging Studies Chest/Abdomen/Pelvis CTA 08/31/21 04:00 EKG Initial EKG: Comments: Sinus rhythm with a rate of 75. Normal HI interval. Slightly prolonged QTC at 480. No ischemic changes Interpreted by emergency doctor Discharge Plan Triage Chief Complaint: Complaint ED Provider: Luis Mares Dx/Rx/DC Orders Clinical Impression: Kidney calculi, Acute UTI Instructions: Treating Kidney Stones ..., Preventing Kidney Stones Prescriptions: New sulfamethoxazole-trimethoprim [Bactrim DS] 800-160 mg tablet 1 tab PO BID Qty: 14 RF: 0 No Action omeprazole 20 mg capsule,delayed release(DR/EC) 20 mg PO DAILY RF: 0 (DME) lancets [FreeStyle Lancets] 28 gauge misc See Rx Instructions .ROUTE .MEDSUPPLY Qty: 200 RF: 3 (DME) blood-glucose meter [FreeStyle Lite Meter] Kit See Rx Instructions .ROUTE .MEDSUPPLY Qty: 1 RF: 0 hydroxychloroquine 200 mg tablet 400 mg PO DAILY RF: 0 metoprolol succinate 50 mg tablet extended release 24 hr 50 mg PO DAILY Qty: 90 RF: 3 prednisone 5 mg tablet 5 mg PO QHS RF: 0 sulfasalazine 500 mg tablet 1 g PO BID RF: 0 aspirin [Adult Aspirin Regimen] 81 mg tablet,delayed release (DR/EC) 81 mg PO QDAY RF: 0 Hold Instructions: Resume on 07/03/21. glimepiride 2 mg tablet 2 mg PO BID Qty: 60 RF: 3 albuterol sulfate [Ventolin HFA] 90 mcg/actuation HFA aerosol inhaler 1 - 2 puff inhalation Q4H PRN PRN (Reason: Wheezing) Qty: 1 RF: 0 (DME) nebulizer and compressor Device See Rx Instructions .ROUTE .MEDSUPPLY Qty: 1 RF: 0 prednisone 10 mg tablets,dose pack 10 mg PO DAILY Qty: 28 RF: 0 (DME) FreeStyle Lite Strips Strip See Rx Instructions .ROUTE .MEDSUPPLY Qty: 200 RF: 3 losartan 25 mg tablet 25 mg PO DAILY Qty: 90 RF: 3 metformin 1,000 mg tablet 1,000 mg PO BID Qty: 180 RF: 3 pravastatin 80 mg tablet See Rx Instructions .ROUTE .COMPLEX Qty: 90 RF: 3 Primary Care Provider: Luis Ochoa Referrals: Luis Ochoa MD [Primary Care Provider] -
[2021-08-31 04:08] LABS: Absolute Neutrophil Count 7.4 X10^3/uL (2.0-7.7); Basophil# 0.11 X10^3/uL; Eosinophil# 0.25 X10^3/uL; Eosinophils% 2.3 % (0-5); Hematocrit 42.3 % (40-54); Hemoglobin 14.5 g/dL (13.0-16.5); Lymphocyte % 18.4 % (19-41); Mean Corp Hgb Conc 34.3 g/dL (32-36); Mean Corpuscular Hgb 33.3 pg (27.0-32.0); Mean Platelet Vol. 11.1 fl (6.2-12.0); Monocyte# 1.06 X10^3/uL; Monocyte% 9.8 % (0-10); NRBC Flagged by Analyzer 0 % (0-5); Neutrophil # 7.37 X10^3/uL (2.7-7.7); Neutrophil % 67.9 % (47-70); Platelet Count 217 K/mm3 (150-450); RBC Distribution Width CV 12.8 % (11.6-14.6); RBC Distribution Width SD 45.9 fl (35.1-43.9); Red Blood Count 4.36 M/mm3 (4.6-6.2); White Blood Count 10.9 K/mm3 (4.4-11.0)
[2021-08-31] MEDS: Morphine 4 MG/ML Syringe IV (04:08)
[2021-08-31] MEDS: Ondansetron 4 MG/2 ML Vial IV (04:08)
[2021-08-31] MEDS: 0.9% Normal Saline 1,000 ML 1000 ML IV (04:09)
[2021-08-31 04:22] VITALS: O2SAT 89; O2SAT 94
[2021-08-31 04:25] LABS: ALB/GLOB Ratio 1.1 RATIO (0.9-2.4); AST(SGOT) 29 U/L (15-37); Alanine Aminotransfer ALT/SGPT 46 U/L (16-61); Albumin, Serum 3.7 g/dL (3.2-5.0); Alkaline Phosphatase 77 U/L (45-117); Anion Gap 8 (5-15); BUN 18 mg/dL (7-18); BUN/Creat Ratio 19.2 RATIO (10-20); Calcium,Total 8.5 mg/dL (8.5-10.1); Chloride 107 mmol/L (98-107); Creatinine, Serum 0.94 mg/dL (0.70-1.30); EST Glomerular Filtration Rate 85 mL/min (>60); Est Glom Filt Rate - Afr Amer 103 mL/min (>60); Estimated Creatinine Clearance 72.77 ml/min; Globulin 3.3 g/dL (2.2-4.2); Glucose 269 mg/dL (74-106); Lipase 243 U/L (73-393); Potassium 3.4 mmol/L (3.5-5.1); Sodium Level 138 mmol/L (136-145); Troponin-I HS 4 pg/mL (3.0-78.0)
[2021-08-31] MEDS: Ketorolac 15 MG/ML Vial IV (04:50)
[2021-08-31] MEDS: HYDROmorphone 1 MG/ML Syringe IV (04:50)
--- NOTE | 2021-08-31 05:21 | EKG12_ITS ---
Test Reason : CP Blood Pressure : / mmHG Vent. Rate : 075 BPM Atrial Rate : 075 BPM P-R Int : 162 ms QRS Dur : 100 ms QT Int : 430 ms P-R-T Axes : 029 -16 043 degrees QTc Int : 480 ms Normal sinus rhythm Prolonged QT Abnormal ECG Confirmed by JANNA RIOS, NEO ([id number]), food editor MARIIA WARD ([id number]) on 09/02/2021 11:32:35 AM Referred By: NUVIA Confirmed By:NEO SALDIVAR MD
[2021-08-31 05:47] LABS: Mucous, Urine 0 SEEN /hpf (<or=2+); Squamous Epithelial Cells - UA 0 SEEN /hpf (0-5)
[2021-08-31 05:48] LABS: Color, Urine Yellow (Yellow); Glucose, Dipstick 250 mg/dl (Normal); Ketone-Dipstick 50 mg/dl (Negative); Leukocyte Esterase-Dipstick 100 /ul (Negative); Nitrite-Dipstick Negative (Negative); Occult Blood-Urine 150 /ul (Negative); Protein-Dipstick 15 mg/dl (Negative); Urine Bilirubin Dipstick Negative (Negative); Urine Clarity Clear (Clear); Urine Urobilinogen Normal (Normal)
[2021-08-31 05:58] LABS: Bacteria 1+ /hpf (None Seen); Red Blood Cells-Urine 10-25 SEEN /hpf (0-5); White Blood Cells 10-25 SEEN /hpf (0-5)
[2021-08-31] MEDS: Smz/Tmp Ds Tablet 1 TABLET PO (06:40)
[2021-08-31] MEDS: oxyCODONE 5 MG Tablet 10 MG PO (06:40)
[2021-08-31 06:43] VITALS: BP 132/74; PULSE 80; RESP 17; O2SAT 97
== END 2021-08-31 06:45 | disposition home or self-care (01) ==
PROVIDERS: Emergency Provider Emergency Medicine; PCP Family Medicine; Visit Provider Emergency Medicine
DX: N13.6 Pyonephrosis (principal); M06.9 Rheumatoid arthritis, unspecified; E11.40 Type 2 diabetes mellitus with diabetic neuropathy, unspecified; I48.0 Paroxysmal atrial fibrillation; I25.10 Atherosclerotic heart disease of native coronary artery without angina pectoris; E78.00 Pure hypercholesterolemia, unspecified; I10 Essential (primary) hypertension; K21.9 Gastro-esophageal reflux disease without esophagitis; Z95.5 Presence of coronary angioplasty implant and graft; Z79.82 Long term (current) use of aspirin; Z79.84 Long term (current) use of oral hypoglycemic drugs; Z79.899 Other long term (current) drug therapy; Z87.891 Personal history of nicotine dependence
CPT/HCPCS: 71275; 74174; 80053; 81001; 83690; 84484; 85025; 93005; 96361; 96374; 96375; 99285; J7030; Q9967; A4216; J2405

== ENCOUNTER 2021-09-04 08:11 | Outpatient (CLI) | payer MEDICARE, OTHER, SELFPAY ==
[2021-09-04 10:07] LABS: Basophil# 0.12 X10^3/uL; Basophil% 1.1 % (0-1); Eosinophil# 0.22 X10^3/uL; Eosinophils% 2.1 % (0-5); Hemoglobin 15.3 g/dL (13.0-16.5); Mean Corpuscular Hgb 33.1 pg (27.0-32.0); Mean Corpuscular Volume 97.4 fL (80-94); Mean Platelet Vol. 11.8 fl (6.2-12.0); Monocyte# 1.09 X10^3/uL; Monocyte% 10.3 % (0-10); NRBC Flagged by Analyzer 0 % (0-5); Neutrophil # 7.03 X10^3/uL (2.7-7.7); Neutrophil % 66.7 % (47-70); Platelet Count 236 K/mm3 (150-450); Red Blood Count 4.62 M/mm3 (4.6-6.2); White Blood Count 10.5 K/mm3 (4.4-11.0)
[2021-09-04 10:20] LABS: ALB/GLOB Ratio 1.1 RATIO (0.9-2.4); AST(SGOT) 34 U/L (15-37); Alanine Aminotransfer ALT/SGPT 47 U/L (16-61); Albumin, Serum 3.8 g/dL (3.2-5.0); Alkaline Phosphatase 79 U/L (45-117); Anion Gap 7 (5-15); BUN 19 mg/dL (7-18); BUN/Creat Ratio 19.9 RATIO (10-20); Calcium,Total 9.1 mg/dL (8.5-10.1); Chloride 106 mmol/L (98-107); Creatinine, Serum 0.96 mg/dL (0.70-1.30); EST Glomerular Filtration Rate 83 mL/min (>60); Est Glom Filt Rate - Afr Amer 100 mL/min (>60); Globulin 3.6 g/dL (2.2-4.2); Glucose 145 mg/dL (74-106); Potassium 3.8 mmol/L (3.5-5.1); Protein, Total 7.4 g/dL (6.4-8.2); Sodium Level 137 mmol/L (136-145)
== END 2021-09-04 23:59 | disposition home or self-care (01) ==
LOC: MFPLAB 08:15
PROVIDERS: PCP Family Medicine; Referring Provider Family Medicine; Visit Provider Family Medicine
DX: K46.9 Unspecified abdominal hernia without obstruction or gangrene (principal)
CPT/HCPCS: 36415; 80053; 85025

== ENCOUNTER → 2021-10-12 | Outpatient (CLI) | payer MEDICARE, OTHER, SELFPAY ==
[2021-10-12 08:20] LABS: Absolute Lymphocyte Count 1.99 X10^3/uL (0.83-4.51); Absolute Neutrophil Count 5.2 X10^3/uL (2.0-7.7); Basophil# 0.09 X10^3/uL; Basophil% 1.1 % (0-1); Eosinophil# 0.44 X10^3/uL; Eosinophils% 5.2 % (0-5); Hematocrit 41.9 % (40-54); Lymphocyte # 1.99 X10^3/ul (0.83-4.51); Lymphocyte % 23.6 % (19-41); Mean Corp Hgb Conc 33.4 g/dL (32-36); Mean Corpuscular Hgb 32.9 pg (27.0-32.0); Mean Corpuscular Volume 98.6 fL (80-94); Mean Platelet Vol. 11.3 fl (6.2-12.0); Monocyte# 0.65 X10^3/uL; Monocyte% 7.7 % (0-10); NRBC Flagged by Analyzer 0 % (0-5); Neutrophil # 5.23 X10^3/uL (2.7-7.7); Neutrophil % 61.8 % (47-70); Platelet Count 218 K/mm3 (150-450); RBC Distribution Width CV 13.2 % (11.6-14.6); RBC Distribution Width SD 47.4 fl (35.1-43.9); Red Blood Count 4.25 M/mm3 (4.6-6.2); White Blood Count 8.5 K/mm3 (4.4-11.0)
[2021-10-12 08:40] LABS: AST(SGOT) 33 U/L (15-37); Alanine Aminotransfer ALT/SGPT 45 U/L (16-61); Albumin, Serum 3.5 g/dL (3.2-5.0); Alkaline Phosphatase 68 U/L (45-117); Bilirubin, Direct 0.13 mg/dL (0.00-0.30); Cholesterol 153 mg/dL (200); Globulin 3.2 g/dL (2.2-4.2); High Density Lipoprotein 43 mg/dL; Protein, Total 6.7 g/dL (6.4-8.2); Triglycerides 156 mg/dL; Very Low Density Lipoprotein 31 mg/dL (5-40)
== END | disposition home or self-care (01) ==
LOC: LAB 07:48
PROVIDERS: Internal Medicine Cardiovascular Disease; PCP Family Medicine; Referring Provider Internal Medicine Rheumatology; Visit Provider Internal Medicine Rheumatology
DX: D64.9 Anemia, unspecified (principal); E78.00 Pure hypercholesterolemia, unspecified; I25.10 Atherosclerotic heart disease of native coronary artery without angina pectoris; Z95.5 Presence of coronary angioplasty implant and graft
CPT/HCPCS: 36415; 80061; 80076; 85025

== ENCOUNTER → 2021-12-22 | Outpatient (CLI) | payer MEDICARE, OTHER, SELFPAY ==
--- NOTE | 2021-12-22 12:52 | ECHOD_ITS ---
Reason For Study: Procedure This was a 2D Doppler, Color Flow transthoracic echocardiogram. The exam was of adequate technical quality. Exam performed in department. Left Ventricle Normal LV size. Moderate concentric left ventricular hypertrophy. Left ventricular systolic function is normal. The estimated ejection fraction is 55 %. Diastolic function is indeterminate. No regional wall motion abnormalities noted. Right Ventricle Normal RV size. Normal systolic function. Atria The left atrium is mildly enlarged. Normal right atrium. No doppler evidence for ASD. Mitral Valve There is moderate mitral annular calcification. Extension of the mitral annular calcification on the base of the posterior mitral valve leaflet. Trivial mitral valve insufficiency. Tricuspid Valve Normal tricuspid valve. Trivial tricuspid valve insufficiency. Right ventricular systolic pressure estimated to be 30 mmHg. Aortic Valve Trisinus/trileaflet aortic valve. Based upon 2D echocardiographic images obtained there appears to be diffuse thickening, calcification, and partial restriction of the aortic valve. Moderate aortic stenosis. Pulmonic Valve The pulmonic valve is not well visualized. Trivial pulmonic valve insufficiency. Great Vessels The aortic root is not well visualized. Pericardium/Pleural No pericardial effusion. MMode/2D Measurements & Calculations LVIDd: 3.9 cm IVSd: 1.5 cm LVOT diam: 2.5 cm LVIDs: 2.6 cm LVPWd: 1.3 cm LVOT area: 4.9 cm2 FS: 33.8 % LAV(MOD-bp): 68.8 ml LVAd ap4: 32.1 cm2 SV(MOD-sp4): 51.6 ml LAV(MOD-bp) Indexed: 30.9 ml/m2 LVLd ap4: 8.5 cm LAV(MOD-sp2): 68.3 ml EDV(MOD-sp4): 100.9 ml LAV(MOD-sp4): 65.9 ml EDV(sp4-el): 102.5 ml LVAs ap4: 19.9 cm2 LVLs ap4: 6.7 cm ESV(MOD-sp4): 49.2 ml ESV(sp4-el): 50.2 ml EF(MOD-sp4): 51.2 % EF(sp4-el): 51.0 % SV(sp4-el): 52.2 ml LA A4 area: 22.9 cm2 LA dimension(2D): 4.7 cm RA A4 area: 18.4 cm2 Time Measurements MV dec time: 0.36 sec Doppler Measurements & Calculations MV E max franco: 103.4 cm/sec Lat Peak E' Franco: 8.2 cm/sec Med Peak E' Franco: 5.5 cm/sec MV A max franco: 113.4 cm/sec E/E' lat: 12.7 E/E' med: 18.8 MV E/A: 0.91 MV V2 max: 128.3 cm/sec Ao V2 max: 362.1 cm/sec MV max P.6 mmHg MV dec slope: 291.0 cm/sec2 Ao max P.9 mmHg MV V2 mean: 81.3 cm/sec Ao V2 mean: 265.0 cm/sec MV mean P.9 mmHg Ao mean P.7 mmHg MV V2 VTI: 46.4 cm Ao V2 VTI: 81.5 cm MVA(VTI): 2.2 cm2 AMAURY(I,D): 1.2 cm2 AMAURY(V,D): 0.96 cm2 LV V1 max: 70.6 cm/sec SV(LVOT): 101.8 ml PA V2 max: 103.3 cm/sec LV V1 max P.4 mmHg PA V2 mean: 66.5 cm/sec LV V1 mean P.4 mmHg LV V1 mean: 50.9 cm/sec LV V1 VTI: 20.8 cm TR max franco: 261.9 cm/sec TR max P.4 mmHg ECHO/Echo Complete Interpretation Summary Left ventricular systolic function is normal. The estimated ejection fraction is 55 %. Moderate concentric left ventricular hypertrophy. The left atrium is mildly enlarged. There is moderate mitral annular calcification. Extension of the mitral annular calcification on the base of the posterior mitr al valve leaflet. Trivial mitral valve insufficiency. Trivial tricuspid valve insufficiency. Moderate aortic stenosis. Trivial pulmonic valve insufficiency. Right ventricular systolic pressure estimated to be 30 mmHg. Diastolic function is indeterminate. Ordering Physician: Luis Martinez Referring Physician: Luis Martinez Performed By: Kavita Carroll RCS
== END | disposition home or self-care (01) ==
LOC: CVS 12:51
PROVIDERS: PCP Family Medicine; Referring Provider Internal Medicine Cardiovascular Disease; Visit Provider Internal Medicine Cardiovascular Disease
DX: I25.10 Atherosclerotic heart disease of native coronary artery without angina pectoris (principal); I48.0 Paroxysmal atrial fibrillation; I10 Essential (primary) hypertension; I35.0 Nonrheumatic aortic (valve) stenosis; E78.00 Pure hypercholesterolemia, unspecified; R91.1 Solitary pulmonary nodule; Z95.5 Presence of coronary angioplasty implant and graft; Z98.890 Other specified postprocedural states
CPT/HCPCS: 93306

== ENCOUNTER → 2022-01-18 | Outpatient (CLI) | payer MEDICARE, OTHER, SELFPAY ==
--- NOTE | 2022-01-18 06:36 | MRI_ITS ---
STUDY: MRI RIGHT KNEE REASON FOR EXAM: Medial right knee pain for 1 to 2 years, rheumatoid arthritis. TECHNIQUE: Standardized fat and water weighted pulse sequences were obtained in all 3 orthogonal planes. COMPARISON: Radiographs 03/21/2020. FINDINGS: There is a complex tear of the posterior horn/body junction medial meniscus with a predominant radial component (T2 coronal images 14-16; T2 sagittal image 20). There is mild peripheral subluxation of the medial meniscus. Normal hyaline cartilage of the medial femorotibial compartment. Normal medial femoral condyle and tibial plateau. Normal medial collateral ligamentous complex (MCL). Normal distal semimembranosus, gracilis and semitendinosus tendons. Normal lateral meniscus. Normal hyaline cartilage of the lateral femorotibial compartment. Normal lateral femoral condyle and tibial plateau. Normal proximal tibiofibular articulation. Normal lateral collateral (fibular) ligament. Normal popliteus tendon. Normal biceps femoris tendon. Normal anterior cruciate ligament (ACL). There is mild intrasubstance mucoid degeneration of the posterior cruciate ligament (T2 sagittal images 14, 15). Normal congruent patellofemoral articulation. There is intermediate grade chondromalacia of the medial patellar facet (T2 axial image 9). Normal medial and lateral patellar retinaculum. There is mild distal quadriceps tendinosis (T2 sagittal image 12). There is mild proximal patellar tendinosis (T2 sagittal image 12). Normal Hoffa''s fat pad. There is a small joint effusion. There is mild edema in the anterior subcutis and lateral adipose space. The otherwise visualized osseous structures are unremarkable. MRI/Lower Ext Joint Only (Routine) IMPRESSION: Medial meniscal tear. Chondromalacia patellae. Mild distal quadriceps and proximal patellar tendinosis. Small joint effusion. Electronically Signed: Royce Carr MD at 8:01 EDT ,
== END | disposition home or self-care (01) ==
PROVIDERS: PCP Family Medicine
DX: S83.241A Other tear of medial meniscus, current injury, right knee, initial encounter (principal); X58.XXXA Exposure to other specified factors, initial encounter; M22.41 Chondromalacia patellae, right knee
CPT/HCPCS: 73721

== ENCOUNTER → 2022-04-01 | Outpatient (CLI) | payer MEDICARE, OTHER, SELFPAY ==
[2022-04-01 10:33] LABS: Anion Gap 9 (5-15); BUN 15 mg/dL (7-18); BUN/Creat Ratio 17.5 RATIO (10-20); Calcium,Total 9.2 mg/dL (8.5-10.1); Chloride 106 mmol/L (98-107); Cholesterol 132 mg/dL (200); Creatinine, Serum 0.86 mg/dL (0.70-1.30); EST Glomerular Filtration Rate 94 mL/min (>60); Est Glom Filt Rate - Afr Amer 114 mL/min (>60); Glucose 134 mg/dL (74-106); High Density Lipoprotein 41 mg/dL; PSA,Total - Annual Screen 0.22 ng/mL (0.00-4.00); Potassium 3.8 mmol/L (3.5-5.1); Sodium Level 141 mmol/L (136-145); Triglycerides 160 mg/dL; Very Low Density Lipoprotein 32 mg/dL (5-40)
== END | disposition home or self-care (01) ==
LOC: MFPLAB 08:26
PROVIDERS: PCP Family Medicine; Referring Provider Family Medicine; Visit Provider Family Medicine
DX: Z12.5 Encounter for screening for malignant neoplasm of prostate (principal); E78.00 Pure hypercholesterolemia, unspecified
CPT/HCPCS: 36415; 80048; 80061; 84153; G0103

== ENCOUNTER → 2022-04-07 | Outpatient (CLI) | payer MEDICARE, OTHER, SELFPAY ==
[2022-04-07 18:22] LABS: AST(SGOT) 34 U/L (15-37); Alanine Aminotransfer ALT/SGPT 56 U/L (16-61); Albumin, Serum 3.6 g/dL (3.2-5.0); Alkaline Phosphatase 91 U/L (45-117); Bilirubin, Direct 0.16 mg/dL (0.00-0.30); Cholesterol 118 mg/dL (200); Globulin 3.4 g/dL (2.2-4.2); High Density Lipoprotein 40 mg/dL; Triglycerides 141 mg/dL; Very Low Density Lipoprotein 28 mg/dL (5-40)
[2022-04-07 18:31] LABS: CRP 4.34 mg/L (0.0-3.0); T4 Total, Thyroxin 10.1 ug/dL (4.5-12.1); Thyroid Stim Hormone (TSH) 0.76 uIU/mL (0.358-3.74)
[2022-04-09 15:08] LABS: Endomysial Antibody IgA Negative (Negative)
[2022-04-09 20:29] LABS: Immunoglobulin A 161 mg/dL (61-437); t-Transglutaminase IgA <2 U/mL (0-3)
== END | disposition home or self-care (01) ==
LOC: MTLAB 15:17
PROVIDERS: Internal Medicine Cardiovascular Disease; PCP Family Medicine; Referring Provider Internal Medicine Gastroenterology; Visit Provider Internal Medicine Gastroenterology
DX: E78.00 Pure hypercholesterolemia, unspecified (principal); R19.7 Diarrhea, unspecified; R10.9 Unspecified abdominal pain
CPT/HCPCS: 36415; 80061; 80076; 82784; 83516; 84436; 84443; 86140; 86255

== ENCOUNTER → 2022-04-12 | Outpatient (CLI) | payer MEDICARE, OTHER, SELFPAY ==
--- NOTE | 2022-04-12 08:03 | RAD_ITS ---
INDICATION: WEIGHT LOSS EXAMINATION/TECHNIQUE: Barium oral contrast was administered orally to the patient. Total Fluoroscopic Time: 33 seconds AND number of Fluoroscopic Images: 5 spot images. 16 images total including cine clips. COMPARISON: CT chest/abdomen/pelvis from 08/31/2021 FINDINGS: There is no small bowel obstruction. Small bowel transit time is within normal limits. The mucosal pattern is unremarkable. There are some areas of narrowing in the distal ileum. RAD/Small Bowel Series Only IMPRESSION: 1. Some nonspecific areas of narrowing in the distal ileum may relate to underdistention or could be indicative of underlying ileitis although there were no obvious findings of mass or inflammatory bowel disease on CT chest/abdomen/pelvis from 08/31/2021. Patient may benefit from CT or MRI enterography if clinically warranted. 2. No bowel obstruction with normal transit time. Electronically Signed: Marcin Kingston, at 14:42 EST ,
== END | disposition home or self-care (01) ==
LOC: RAD 07:56
PROVIDERS: PCP Family Medicine; Referring Provider Internal Medicine Gastroenterology; Visit Provider Internal Medicine Gastroenterology
DX: R63.4 Abnormal weight loss (principal); R19.7 Diarrhea, unspecified
CPT/HCPCS: 74250

== ENCOUNTER → 2022-04-20 | Outpatient (CLI) | payer MEDICARE, OTHER, SELFPAY ==
--- NOTE | 2022-04-20 07:42 | CT_ITS ---
STUDY: CT ENTEROGRAPHY WITH CONTRAST REASON FOR EXAM: Male, 66 years old. WEIGHT LOSS AND DIARRHEA RADIATION DOSAGE (If Supplied By Facility): CTDIvol = ( 26.29 ) mGy, DLP = ( 2913.22 ) mGycm TECHNIQUE: Transaxial images were obtained from the dome of the diaphragm to the symphysis pubis with oral contrast. 450ml of Volumen was administered orally at 60 minutes and 40 minutes and 225ml of Volumen was administered 20 minutes and 10 minutes prior to scanning, to a total of 1,350ml. IV 100mL Isovue-370 was administered intravenously. Sagittal and coronal images were reconstructed. TECHNICAL QUALITY: Image Quality: Satisfactory Small Bowel Distension: Adequate. Individualized dose optimization techniques were used for this CT. COMPARISON: None. FINDINGS: Bowel: Bowel wall thickening: Absent. Skip lesions: None. Vascularity: Normal. Enhancement: Normal. Fistula: None. Abscess: None. Other Findings: The lung bases are unremarkable. Coronary artery calcification. Diffuse fatty infiltration of the liver. Small gallstones are seen in the region of the neck of the gallbladder. Normal spleen. Normal pancreas. Normal bilateral adrenal glands. There is a 3.9 cm x 6.3 cm cyst in the posterior upper pole of the right kidney. Normal left kidney. Normal visualized stomach. Normal colon. The appendix is visualized and appears normal. Atherosclerotic plaque formation of the abdominal aorta and its major visceral branches. Normal interior vena cava. Normal retroperitoneum. Normal urinary bladder. Small umbilical hernia containing fat. Degenerative changes of the lumbar spine. CT/Abdomen/Pelvis WITH Contrast IMPRESSION: Fatty infiltration of the liver. Small gallstones in the region of the neck of the gallbladder. Right renal cyst. Electronically Signed: Shar Castillo MD at 14:57 EST ,
== END | disposition home or self-care (01) ==
LOC: CT 07:41
PROVIDERS: PCP Family Medicine; Referring Provider Internal Medicine Gastroenterology; Visit Provider Internal Medicine Gastroenterology
DX: R19.7 Diarrhea, unspecified (principal); R63.4 Abnormal weight loss; R93.3 Abnormal findings on diagnostic imaging of other parts of digestive tract
CPT/HCPCS: 74177; Q9967; A4216

== ENCOUNTER → 2022-05-20 | Outpatient (CLI) | payer MEDICARE, OTHER, SELFPAY ==
[2022-05-24 16:18] LABS: Calprotectin, Stool 46 ug/g (0-120); Fats, Neutral Normal (.); Fats, Total Increased (.)
[2022-05-26 19:23] LABS: Pancreatic Elastase, Fecal 482 (>200)
== END | disposition home or self-care (01) ==
LOC: LABSPEC 08:28
PROVIDERS: PCP Family Medicine; Referring Provider Internal Medicine Gastroenterology; Visit Provider Internal Medicine Gastroenterology
DX: R19.7 Diarrhea, unspecified (principal)
CPT/HCPCS: 82653; 82705; 83993

== ENCOUNTER → 2022-08-25 | Outpatient (CLI) | payer MEDICARE, OTHER, SELFPAY ==
[2022-08-25 10:52] LABS: Anion Gap 7 (5-15); BUN 18 mg/dL (7-18); BUN/Creat Ratio 20.6 RATIO (10-20); Calcium,Total 9.3 mg/dL (8.5-10.1); Chloride 109 mmol/L (98-107); Creatinine, Serum 0.87 mg/dL (0.70-1.30); EST Glomerular Filtration Rate 92 mL/min (>60); Est Glom Filt Rate - Afr Amer 111 mL/min (>60); Glucose 189 mg/dL (74-106); Potassium 4.1 mmol/L (3.5-5.1); Sodium Level 140 mmol/L (136-145)
== END | disposition home or self-care (01) ==
LOC: LAB 10:05
PROVIDERS: PCP Family Medicine; Referring Provider Nurse Practitioner Family; Visit Provider Nurse Practitioner Family
DX: R06.09 Other forms of dyspnea (principal); I35.0 Nonrheumatic aortic (valve) stenosis
CPT/HCPCS: 36415; 80048; 83880

== ENCOUNTER → 2022-09-17 | Outpatient (CLI) | payer MEDICARE, OTHER, SELFPAY ==
--- NOTE | 2022-09-17 07:46 | ECHOD_ITS ---
Reason For Study: Aortic Stenosis Procedure This was a 2D Doppler, Color Flow transthoracic echocardiogram. Exam performed in department. Left Ventricle Normal LV size. Left ventricular systolic function is normal. The estimated ejection fraction is 60 %. Stage 1 diastolic dysfunction. No regional wall motion abnormalities noted. Right Ventricle Normal RV size. Normal systolic function. Mitral Valve Bileaflet diffuse mitral valve thickening. Trivial eccentric mitral valve insufficiency. Tricuspid Valve Normal tricuspid valve. Mild tricuspid valve insufficiency. Pulmonary artery systolic pressure is 36 mmHg. Aortic Valve Trisinus/trileaflet aortic valve. Moderate focal aortic valve calcification. Moderate to severe aortic stenosis. Peak aortic valve gradient 65 mmHg. Mean aortic valve gradient 37 mmHg. Trivial aortic valve insufficiency. Pulmonic Valve Normal pulmonic valve. Great Vessels Normal aortic root. The pulmonary artery is normal size. Normal inferior vena cava. Pericardium/Pleural No pericardial effusion. MMode/2D Measurements & Calculations LVIDd: 4.8 cm IVSd: 1.2 cm LVOT diam: 2.4 cm LVIDs: 3.2 cm LVPWd: 1.1 cm LVOT area: 4.5 cm2 RVDd: 3.6 cm FS: 32.9 % Ao root diam: 4.0 cm LAV(MOD-bp): 66.0 ml Aortic Valve Planimetry: 2.4 cm2 LA dimension: 4.3 cm LAV(MOD-bp) Indexed: 29.4 ml/m2 LAV(MOD-sp2): 67.8 ml LAV(MOD-sp4): 59.4 ml LA A4 area: 21.5 cm2 RA A4 area: 19.8 cm2 Time Measurements MV dec time: 0.38 sec Doppler Measurements & Calculations MV E max franco: 115.8 cm/sec Lat Peak E' Franco: 6.9 cm/sec Med Peak E' Franco: 6.6 cm/sec MV A max franco: 117.2 cm/sec E/E' lat: 16.9 E/E' med: 17.4 MV E/A: 0.99 MV V2 max: 139.8 cm/sec MV P1/2t max franco: 141.3 cm/sec Ao V2 max: 402.7 cm/sec MV max P.8 mmHg MV P1/2t: 122.3 msec Ao max P.0 mmHg MV V2 mean: 84.0 cm/sec MV dec slope: 338.4 cm/sec2 Ao V2 mean: 285.7 cm/sec MV mean P.3 mmHg MVA(P1/2t): 1.8 cm2 Ao mean P.8 mmHg MV V2 VTI: 49.2 cm Ao V2 VTI: 106.6 cm MVA(VTI): 2.2 cm2 AV (velocity ratio): 0.23 AMAURY(I,D): 1.0 cm2 AMAURY(V,D): 0.96 cm2 AI max franco: 362.9 cm/sec LV V1 max: 86.1 cm/sec MR max franco: 613.6 cm/sec AI max P.9 mmHg LV V1 max P.0 mmHg MR max P.6 mmHg LV V1 mean P.6 mmHg MR mean franco: 547.5 cm/sec AI dec slope: 172.3 cm/sec2 LV V1 mean: 59.3 cm/sec MR mean P.0 mmHg AI P1/2t: 617.0 msec LV V1 VTI: 24.1 cm MR VTI: 263.6 cm SV(LVOT): 108.5 ml PA V2 max: 108.1 cm/sec TR max franco: 283.8 cm/sec TR max P.2 mmHg ECHO/Echo Complete Interpretation Summary Normal LV size. Left ventricular systolic function is normal. Stage 1 diastolic dysfunction. The estimated ejection fraction is 60 %. Mean aortic valve gradient 37 mmHg. Moderate to severe aortic stenosis. Patient on the above echocardiogram the aortic valve stenosis appears to be mil dly worse. Ordering Physician: Farhad Chacon Referring Physician: Luis Ochoa Performed By: Bishop Medina RCS
== END | disposition home or self-care (01) ==
LOC: CVS 07:45
PROVIDERS: PCP Family Medicine; Referring Provider Nurse Practitioner Family; Visit Provider Nurse Practitioner Family
DX: I35.0 Nonrheumatic aortic (valve) stenosis (principal); I25.10 Atherosclerotic heart disease of native coronary artery without angina pectoris; Z95.5 Presence of coronary angioplasty implant and graft; Z98.890 Other specified postprocedural states
CPT/HCPCS: 93306

== ENCOUNTER 2022-10-11 06:43 | Day surgery (SDC) | payer MEDICARE, OTHER, SELFPAY ==
--- NOTE | 2022-09-27 16:39 | PCM.HP.BLA ---
History and Physical Date of Admission: 10/11/22 LULY SMART, is a 67 year old white male who presents to [facility] today for a heart catheterization. He has a history of CAD with stenting to his RCA in 2005, atrial fibrillation requiring EPS/RFA in December 2016, aortic valve stenosis, hyperlipidemia, hypertension, and MIL without CPAP or BiPAP d/t intolerance. He denies chest, arm, jaw, or neck discomfort.? He denies palpitations.? He denies bilateral lower extremity edema.? He denies claudication.? He states shortness of breath with activity that is worsening. This improves with rest. He denies shortness of breath at rest, orthopnea, or PND.? He denies chronic cough.? He denies significant, sudden weight gain.? He states lightheadedness and dizziness with activity. This too improves with rest. He denies near-syncope or syncope.? He denies blood in urine, blood in stool, or epistaxis.? He denies fever with chills.? He denies myalgia.? He denies fatigue.? His exercise level has reduced since last visit. 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-C) PAUL (acute kidney injury) Alcohol use Atherosclerotic heart disease of [place] coronary artery without angina pectoris BPH (benign prostatic hyperplasia) Cardiology follow-up encounter Diabetes Easy bruising Edentulous Essential hypertension Former smoker GERD (gastroesophageal reflux disease) History of atrial fibrillation History of echocardiogram History of edema History of steroid therapy History of stress test Hyperlipidemia Hypertension Leg cramps Liver disease 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 H/O cardiac radiofrequency ablation H/O heart artery stent History of arthroplasty of left shoulder History of arthroplasty of right shoulder History of cardiac radiofrequency ablation (RFA) (~01/20/17) History of carpal tunnel surgery History of hand surgery History of sinus surgery Postsurgical percutaneous transluminal coronary angioplasty (PTCA) status (~03/15/06) Presence of coronary angioplasty implant and graft (~03/15/06) S/P TURP Family History? Son DiabetesMother?? Myocardial infarction,? Onset Age: 73Father ?? No problems noted. Son DiabetesGrandmother Breast cancer Social History? Smoking Status:? Former smoker how long ago did patient quit smoking:? 2006, 2pk/day second hand exposure:? Yes alcohol intake:? current details:? rare substance use type:? does not use what type of physical activity do you participate in:? none ROS Const Const: Positive for fatigue; Negative for weakness, body ache, fever(s) or chills ENT ENT: Positive for dizziness; Negative for Nosebleed/epistaxis Cardio Chest Pain: Yes Palpitations: No Edema: None Muscle aches with walking: None Resp Respiratory: Positive for SOB with activity and SOB at rest; Negative for SOB orthopnea\SOB lying down, Cough or paroxysmal nocturnal dyspnea GI GI: Negative nausea, vomiting blood/hematemesis, bright, red blood in stools or black,tarry stools : Negative for hematuria or frequent nighttime urination/ nocturia Musc Musc: Negative for muscle aches/ myalgia Skin Skin: Negative non-healing lesions or rash Neuro Neuro: Positive for dizziness and lightheadedness; Negative for near syncope, syncope, orthostatic symptoms or weakness Endo Endo: Positive for fatigue Allergy Allergy/Immunology: Negative for rash Cardiology Exam Const Appearance: cooperative, healthy appearing, comfortable and no acute distress Nutritional Appearance: well nourished and obese Orientation: alert, awake and oriented x3 Head Head: normal to inspection Ears: hearing grossly normal bilaterally Nose: external nose normal Face and Sinus: face symmetric Mouth: moist mucous membranes Eyes General: appearance normal, both eyes and all related structures Eyelids: eyelids normal EOM: EOM intact bilaterally Neck Neck: normal visual inspection and no JVD Carotids: normal carotid upstroke Chest Chest inspection: normal inspection of the chest, symmetric chest movement and normal respiratory effort; Negative cough Auscultation: Bilateral: Clear to Auscultation Cardio Rate: regular rate Rhythm: regular rhythm Heart sounds: S1 normal, S2 normal and murmur; Negative rub or gallop Murmur: Grade 2/6, soft, radiates to carotids and BETTY loudest primary aortic area GI GI: normal to inspection and obese Neuro General: patient alert, patient awake, patient oriented x3 and CN's II-XI intact bilaterally Skin Skin: no rashes or lesions noted Extremities Pulses: Normal: Right Posterior Tibial Pulse, Left Posterior Tibial Pulse, Right Radial Pulse and Left Radial Pulse Lower Extremity Edema: None: Bilateral Psych Psychological: normal affect Supplemental Info Supplemental Information Echocardiogram from 09/17/2022: Interpretation Summary Normal LV size. Left ventricular systolic function is normal. Stage 1 diastolic dysfunction. The estimated ejection fraction is 60 %. Mean aortic valve gradient 37 mmHg. Moderate to severe aortic stenosis. Patient on the above echocardiogram the aortic valve stenosis appears to be mildly worse. Echocardiogram from 12/22/2021: Interpretation Summary Left ventricular systolic function is normal. The estimated ejection fraction is 55 %. Moderate concentric left ventricular hypertrophy. The left atrium is mildly enlarged. There is moderate mitral annular calcification. Extension of the mitral annular calcification on the base of the posterior mitral valve leaflet. Trivial mitral valve insufficiency. Trivial tricuspid valve insufficiency. Moderate aortic stenosis. Trivial pulmonic valve insufficiency. Right ventricular systolic pressure estimated to be 30 mmHg. Diastolic function is indeterminate. Stress Test Report Date: 06-22-2019 Procedure: Pharmacologic stress nuclear imaging study Indications: Chest pain; CAD; PCI; atrial fibrillation; EPS/RFA Consent: Per the patient Procedure: The patient underwent pharmacologic (Regadenoson) evaluation with a peak heart rate of 100 beats per minute (64 %predicted maximal heart rate) and a peak blood pressure of 132/80 mmHg. The baseline ECG demonstrated sinus rhythm.? The peak pharmacologic ECG demonstrated no obvious ECG changes. There was an occasional PAC during infusion. There was no complaint of chest discomfort during pharmacologic infusion or recovery. The examination was discontinued secondary to completion of protocol. Impression: 1.? Pharmacologic (Regadenoson) evaluation 2.? Peak pharmacologic ECG with no obvious ECG changes. 3.? There was an occasional PAC during infusion. 4.? Nuclear images pending Myocardial perfusion imaging study: Technique: The patient was injected with 14.8 millicuries of technetium 99m Cardiolite and subsequently rest SPECT Cardiolite nuclear imaging was obtained in the horizontal long, vertical long, and short axis views. The patient underwent pharmacologic (Regadenoson) evaluation with a peak heart rate of 100 beats per minute (64 % percent predicted maximal heart rate) and a peak blood pressure of 132/80 mmHg. The patient was injected with 44.5 millicuries of technetium 99m Cardiolite and subsequently stress SPECT Cardiolite nuclear imaging was obtained in the horizontal long, vertical long, and short axis views.? A gated Cardiolite study at peak stress was obtained. Interpretation: Rest and stress SPECT Cardiolite nuclear imaging status post realignment, normalization, and attenuation correction demonstrate relative uniform tracer uptake and myocardial perfusion appearing within normal limits.? There is end systolic thickening and brightening.? The gated Cardiolite study demonstrates myocardial thickening and inward wall motion.? The reported LVEF is 73 %. Impression: 1.? Rest and stress SPECT Cardiolite nuclear imaging demonstrate relative uniform tracer uptake and myocardial perfusion appearing within normal limits. 2.? The gated Cardiolite study reports an LVEF of 73 %. Cardiac catheterization: 03-15-2006:?[facility] Demonstrated left main coronary artery had no significant disease, the LAD was considered angiographically normal, the LCx had no significant disease, the RCA was considered to have a 70% napkin ring type lesion followed by a 50-60% stenosis.? He subsequently underwent PTCA/RACHEL of the mid RCA. Assessment and Plan Assessment and Plan (1) Atherosclerotic heart disease of [place] coronary artery without angina pectoris: ?Status:?Chronic ?Qualifiers: ?[place] vs. transplanted heart:?[place] heart? Qualified Code(s):?I25.10 - Atherosclerotic heart disease of [place] coronary artery without angina pectoris ?Comment: PTCA/RACHEL to Mid RCA 03/15/06 ?Plan: He does not acknowledge any chest discomfort suggestive of angina.? His shortness of breath, fatigue, and activity intolerance is thought to be due to progressive aortic valve disease. He will continue current medical therapy with losartan, metoprolol, and pravastatin.? He was asked to resume aspirin therapy. (2) Paroxysmal atrial fibrillation: ?Status:?Chronic ?Plan: His EKG on 08/25/2022 showed sinus rhythm at a rate of 63 bpm, RI interval 178, QTc 435, and QRS 95.He appears to be in a regular rhythm on exam.? He will continue metoprolol succinate for rate control.? He is not on oral anticoagulation due to maintaining sinus rhythm.? We will have to reconsider anticoagulation if he develops recurring atrial fibrillation. (3) History of cardiac radiofrequency ablation (RFA): ?Status:?Resolved ?Comment: Atrial Fibrillation ?Plan: He will continue metoprolol therapy.? We will continue to monitor.? His EKG on 08/25/2022 shows a sinus rhythm. (4) Nonrheumatic aortic (valve) stenosis: ?Status:?Chronic ?Plan: His echocardiogram on 09/17/2022 showed ejection fraction of 60%, peak aortic valve gradient 65 mmHg, mean aortic valve gradient 37 mmHg, and aortic valve area 1/0.96 cm?. We will proceed with heart catheterization to assess further and guide valvular work-up. He would like to proceed further with [facility] main campus with Dr. Karlos Rose or Dr. Joan Carbone, if indicated. Both appear to be CTS. (5) Pure hypercholesterolemia: ?Status:?Chronic ?Plan: Lipid panel from 04/07/2022 showed Cholesterol: 118, HDL: 40, LDL: 50, and Triglycerides: 141.? He will continue pravastatin therapy. (6) Essential hypertension: ?Status:?Chronic ?Plan: we will accept higher blood pressures on account of aortic valve stenosis.
--- NOTE | 2022-09-30 09:53 | RAD_ITS ---
EXAM: XR CHEST, 2 VIEWS CLINICAL INDICATION: [id number] TECHNIQUE: Frontal and lateral views of the chest. COMPARISON: 04/26/2021 FINDINGS: LUNGS AND PLEURAL SPACES: Unremarkable. No consolidation or edema. No pneumothorax. No effusion. HEART: Unremarkable. Cardiac silhouette not enlarged. MEDIASTINUM: Central airways and mediastinal contour are unremarkable. BONES/JOINTS: Unremarkable. SOFT TISSUES: Unremarkable. RAD/Chest PA and Lateral IMPRESSION: No radiographic evidence of acute cardiopulmonary disease. Electronically Signed: Karson Bird MD at 17:29 EDT ,
[2022-09-30 09:59] LABS: Absolute Lymphocyte Count 2.25 X10^3/uL (0.83-4.51); Absolute Neutrophil Count 6.7 X10^3/uL (2.0-7.7); Basophil# 0.14 X10^3/uL; Basophil% 1.4 % (0-1); Eosinophil# 0.39 X10^3/uL; Eosinophils% 3.8 % (0-5); Hematocrit 45.5 % (40-54); Hemoglobin 15.4 g/dL (13.0-16.5); Lymphocyte # 2.25 X10^3/ul (0.83-4.51); Lymphocyte % 21.9 % (19-41); Mean Corp Hgb Conc 33.8 g/dL (32-36); Mean Corpuscular Hgb 31.7 pg (27.0-32.0); Mean Corpuscular Volume 93.6 fL (80-94); Mean Platelet Vol. 10.6 fl (6.2-12.0); Monocyte# 0.79 X10^3/uL; Monocyte% 7.7 % (0-10); NRBC Flagged by Analyzer 0 % (0-5); Neutrophil # 6.68 X10^3/uL (2.7-7.7); Neutrophil % 64.9 % (47-70); Platelet Count 219 K/mm3 (150-450); RBC Distribution Width CV 13.3 % (11.6-14.6); RBC Distribution Width SD 45.6 fl (35.1-43.9); Red Blood Count 4.86 M/mm3 (4.6-6.2); White Blood Count 10.3 K/mm3 (4.4-11.0)
[2022-09-30 10:38] LABS: Anion Gap 5 (5-15); BUN 19 mg/dL (7-18); BUN/Creat Ratio 20.9 RATIO (10-20); Calcium,Total 9.2 mg/dL (8.5-10.1); Chloride 110 mmol/L (98-107); Creatinine, Serum 0.91 mg/dL (0.70-1.30); EST Glomerular Filtration Rate 88 mL/min (>60); Est Glom Filt Rate - Afr Amer 106 mL/min (>60); Glucose 126 mg/dL (74-106); Potassium 4.3 mmol/L (3.5-5.1); Sodium Level 140 mmol/L (136-145)
[2022-10-11 07:12] VITALS: BMI 37.5
--- NOTE | 2022-10-11 08:57 | CL.D_ITS ---
Patient Name: LULY SMART Study Date: 10/11/2022 Performing: Jayme Cruz MD Ht: 68 inches 172.72 cm : 1955 Wt: 245.99 lbs 111.58 kg Age: 67 Gender: male BSA: 2.23 PROCEDURE(S) PERFORMED DC02-([id number])[facility] CLINICAL PROFILE AND INDICATIONS Indications: Suspected CAD, Valvular Disease Heart Failure: None Stress/Imaging Stress/Image Study Performed: No CAD Presentations: No Sxs, no angina. CONCLUSIONS High-grade stenosis noted in the proximal left circumflex artery and severe aortic stenosis. RECOMMENDATIONS Referred for immediate PCI We will also refer for TAVR placement. DESCRIPTION OF PROCEDURE The patient arrived to the procedure lab. The risks and benefits of the procedure as well as a full description of our services here and current unavailability of surgical backup were fully explained to the patient and/or their significant other prior to the catheterization. The Timeout was completed, verifying the correct patient and procedure. The patient's procedural site was prepped and draped in the usual fashion. Local anesthetic was given subcutaneously to right radial region with Lidocaine 2%. Using a modified Seldinger technique, arterial access was obtained via the right radial artery, a 6Fr sheath was inserted. Left Coronary Artery selective angiography was performed in multiple views using a 5 Fr. 4.0 [place] catheter. Right Coronary Artery selective angiography was then performed in multiple views using a 5 Fr. JR 5 catheter. CORONARY ANGIOGRAPHY DOMINANCE: Right Dominant LEFT HEART ASSESSMENT Left Ventricular Ejection Fraction: by Echo 60 % Normal LV wall motion Normal Left Ventricular systolic function LEFT MAIN: Angiographically normal LEFT ANTERIOR DESCENDING ARTERY: Mild calcification, Mild luminal irregularities less than 30% CIRCUMFLEX ARTERY: The proximal circumflex artery has a hazy 70% stenotic lesion. RIGHT CORONARY ARTERY: Previously placed stent in the right coronary artery is noted to be patent with minimal in-stent stenosis VALVE FINDINGS: Aortic Valve Stenosis - severe COMPLICATIONS PROCEDURE MEDICATIONS Fentanyl 50 mcg IV Versed 1 mg IV Versed 1 mg IV Oxygen: 2 L/min via nasal cannula Heparin given IA 10/11/2022 08:31:00 Verapamil 2.5mg, Ntg 100mcgs, 3000 units of Heparin given IA 10/11/2022 08:31:00 SUMMARY OF HEMODYNAMIC DATA Time AIR REST ECG 07:10:08 AO 126/82 (102) SA 08:32:58 Signed By Jayme Cruz MD On 10/11/2022 08:56:56 Jayme Cruz MD
--- NOTE | 2022-10-11 10:38 | CL.I_ITS ---
Patient Name: LULY SMART Study Date: 10/11/2022 Performing: Yaniv Morales MD Ht: 68 inches 172.72 cm : 1955 Wt: 245.99 lbs 111.58 kg Age: 67 Gender: male BSA: 2.23 PROCEDURE(S) PERFORMED IC12-([id number])RACHEL W/WO PTCA, SINGLE CORONARY ARTERY CLINICAL PROFILE AND CO-MORBIDITIES Indications: Suspected CAD, Valvular Disease Heart Failure: None Stress/Imaging Stress/Image Study Performed: No CAD Presentations: No Sxs, no angina. CONCLUSIONS Successful RACHEL to pLCx RECOMMENDATIONS DESCRIPTION OF PROCEDURE The patient arrived to the procedure lab. The risks and benefits of the procedure as well as a full description of our services here and current unavailability of surgical backup were fully explained to the patient and/or their significant other prior to the catheterization. The Timeout was completed, verifying the correct patient and procedure. The patient's procedural site was prepped and draped in the usual fashion. Local anesthetic was given subcutaneously to right radial region with Lidocaine 2% Using a modified Seldinger technique,arterial access was obtained via the right radial artery, a 6Fr sheath was inserted. Left Coronary Artery selective angiography was performed in multiple views using a 5 Fr. 4.0 [place] catheter. Right Coronary Artery selective angiography was then performed in multiple views using a 5 Fr. JR 5 catheter.The images were reviewed and options discussed. A decision was then made to proceed with an Intervention, IVUS or other adjunct procedure. XB 3.0 Guide catheter was inserted and engaged into the LCA. BMW Guide wire was advanced to the Circumflex. 3.0V8 EMERGE Balloon catheter was inserted. Balloon catheter was advanced across lesion in the circumflex, mid. PTCA balloon inflated at 8 atms for 15 secs. 3.0X12 RESOLUTE Drug Eluting stent was inserted. Drug Eluting stent was advanced across the lesion in the circumflex, proxima. Angiogram performed post stent deployment. The arterial sheath was pulled and a TR Band was applied for hemostasis-12 cc air INTERVENTION INFORMATION LESION SITE: Circumflex (Proximal) Lesion Complexity: High/C, chronic total occlusion: No, lesion at bifurcation: Yes, thrombus present: No, lesion length: 11 mm, culprit lesion: Yes, Previously treated lesion: No Pre Stenosis: 80 % Pre intervention DARIUS flow: 3 PROCEDURE: Drug Eluting Stent with pre dilatation. Post Stenosis: 0 % Post intervention DARIUS flow: 3 Lesion Devices: Cordis 6 Fr XB3.0 100cm Guide Catheter Nolan .014 190cm BMW [place] Straight Raphael Sci EMERGE MR 3.00x08 BALLOON Medtronic Resolute Eligio RX RACHEL 3.0x12 COMPLICATIONS No Complications PROCEDURE MEDICATIONS Fentanyl 50 mcg IV Versed 1 mg IV Versed 1 mg IV Fentanyl 50 mcg IV Oxygen: 2 L/min via nasal cannula Brilinta 180 mg PO @ 10/11/2022 09:00:37 Heparin given IA 10/11/2022 08:31:00 Heparin 6000 unit(s) IV 10/11/2022 09:07:30 Verapamil 2.5mg, Ntg 100mcgs, 3000 units of Heparin given IA 10/11/2022 08:31:00 SUMMARY OF HEMODYNAMIC DATA Time AIR REST ECG 07:10:08 AO 126/82 (102) SA 08:32:58 AO 142/79 (103) 09:02:42 AIR REST 10:37:10 Signed By Yaniv Morales MD On 10/11/2022 10:37:36 Yaniv Morales MD
--- NOTE | 2022-10-11 13:34 | CRPHASE1 ---
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 Our purpose is to help you have a full recovery and achieve the goals you set for yourself. Over the years many of our patients have returned to activities they assumed they would never do again! We can help restore your confidence and motivation to make lifestyle changes that can have a significant impact on your health and quality of life! We can help answer questions and concerns you may have about exercise, lifestyle, medications, diet, stress and anxiety which are common following a hospitalization. WE monitor ECG and vital signs during exercise and discuss your progress with you and report to your physician(s). Cardiac Rehab is proven to help reduce readmissions, improve functional capacity and lower recurrence of problems with your heart. Our Cardiac Rehab program is Certified by the [place] [employer]-Vascular and Pulmonary Rehabilitation (AACVPR) and Accredited by the [place] [employer] through our [facility]. You can contact us at . We invite you to call us with your questions or to get started in our program. If you have other questions or concerns be sure to ask your physician/provider during your follow-up visit. WE look forward to seeing you!
--- NOTE | 2022-10-11 13:35 | CRPH1.INSTRU ---
General Education CAD and cardiac anatomy and function:: Patient communicates acknowledgment Explanation of diagnoses and procedures:: Patient communicates acknowledgment Sign/Symptoms of MA:: Patient communicates acknowledgment Antiplatelet therapy: Patient communicates acknowledgment Proper use of NTG-SL: Patient communicates acknowledgment Emergency procedures and activation of EMS: Patient communicates acknowledgment Compliance of all prescribed medications: Patient communicates acknowledgment Smoking Patient Nicotine/Smoking Risk Factors Are:: Non-smoker Recommendations Include:: Second-hand smoke recommendation, Previous smoker; encourage continued cessation Nicotine/Smoking Response Code:: Patient communicates acknowledgment Dyslipidemia Recommendations Include:: Lipid profile not available, Reviewed NCEP/ATP guidelines, Therapeutic Lifestyle Change dietary guidelines Dyslipidemia Response Code:: Patient communicates acknowledgment Overweight/Obesity Patient Overweight/Obesity Risk Factors Are:: Obesity - > or = 30 Recommendations Include:: Weight loss of 5-10%, Reduced calorie diet, Exercise 5-7 times/week Overweight/Obesity:: Patient communicates acknowledgment Hypertension Recommendations Include:: Maintain BP <130/85 Hypertension:: Patient communicates acknowledgment Heart Disease Patient Heart Disease Risk Factors Are:: Family history of heart disease < 65 years old, Previous cardiac event Recommendations Include:: Educated family members of their risk Heart Disease Response Code:: Patient communicates acknowledgment Diabetes Patient Diabetes Risk Factors Are:: Elevated blood sugars Recommendations Include:: Maintain fasting blood sugars 70-110 md/dL, Maintain HgbA1c of 6% or less, Monitor blood sugar as prescribed, Diabetic dietary guidelines, Decrease/maintain body weight Diabetes:: Patient communicates acknowledgment Metabolic Syndrome Patient Metabolic Syndrome Risk Factors Are [3 of 5]:: Fasting blood sugar > 100 mg/dL, Waist circumference > 35 [female] or 40 [male], High triglyceride >150, Hypertension, Low HDL <40 [male] or < 50 [female] Recommendations Include:: Reinforce compliance to risk factor modifications, Patient is diabetic, Encouraged follow-up with Primary Care Physician Metabolic Syndrome Response Code:: Patient communicates acknowledgment Sedentary Patient Sedentary Risk Factors Are:: Lack of regular exercise Recommendations Include:: Aerobic exercise 5-7 times/week for 20-30 minutes continuously, Benefits of regular exercise, Discussed home walking program, Monitored Outpatient Cardiac Rehab Sedentary Response Code:: Patient communicates acknowledgment Stress Patient Stress Risk Factors Are:: Patient denies stress as a risk factor Recommendations Include:: Identification of stressors, and assessment of coping skills, Stress management techniques Stress Response Code:: Patient communicates acknowledgment
== END 2022-10-11 13:00 | disposition home or self-care (01) ==
PROVIDERS: Nurse Practitioner Family; PCP Family Medicine; Referring Provider Internal Medicine Cardiovascular Disease; Visit Provider Internal Medicine Cardiovascular Disease
DX: I25.10 Atherosclerotic heart disease of native coronary artery without angina pectoris (principal); I48.0 Paroxysmal atrial fibrillation; E11.9 Type 2 diabetes mellitus without complications; I10 Essential (primary) hypertension; E78.00 Pure hypercholesterolemia, unspecified; I35.0 Nonrheumatic aortic (valve) stenosis; R53.83 Other fatigue; E66.9 Obesity, unspecified; Z95.5 Presence of coronary angioplasty implant and graft; Z87.891 Personal history of nicotine dependence; Z79.84 Long term (current) use of oral hypoglycemic drugs; Z79.899 Other long term (current) drug therapy
CPT/HCPCS: 36415; 71046; 80048; 85025; 92928; 93005; 93454; 99152; 99153; J7040; C1725; C1769; C1874; C1887; C1894; C9600; J1327; Q9967

== ENCOUNTER → 2022-10-19 | Outpatient (CLI) | payer MEDICARE, OTHER, SELFPAY ==
[2022-10-19 09:08] LABS: AST(SGOT) 21 U/L (15-37); Alanine Aminotransfer ALT/SGPT 33 U/L (16-61); Albumin, Serum 3.6 g/dL (3.2-5.0); Alkaline Phosphatase 119 U/L (45-117); Anion Gap 8 (5-15); BUN 21 mg/dL (7-18); BUN/Creat Ratio 21.9 RATIO (10-20); Bilirubin, Direct 0.15 mg/dL (0.00-0.30); Calcium,Total 9.3 mg/dL (8.5-10.1); Chloride 107 mmol/L (98-107); Cholesterol 123 mg/dL (200); Creatinine, Serum 0.96 mg/dL (0.70-1.30); EST Glomerular Filtration Rate 83 mL/min (>60); Est Glom Filt Rate - Afr Amer 100 mL/min (>60); Globulin 3.7 g/dL (2.2-4.2); Glucose 164 mg/dL (74-106); High Density Lipoprotein 47 mg/dL; Potassium 4.2 mmol/L (3.5-5.1); Protein, Total 7.3 g/dL (6.4-8.2); Sodium Level 137 mmol/L (136-145); Triglycerides 90 mg/dL; Very Low Density Lipoprotein 18 mg/dL (5-40)
== END | disposition home or self-care (01) ==
LOC: LAB 07:58
PROVIDERS: Internal Medicine Cardiovascular Disease; PCP Family Medicine; Referring Provider Nurse Practitioner Adult Health; Visit Provider Nurse Practitioner Adult Health
DX: I35.0 Nonrheumatic aortic (valve) stenosis (principal); E78.00 Pure hypercholesterolemia, unspecified
CPT/HCPCS: 36415; 80048; 80061; 80076

== ENCOUNTER → 2022-11-16 | Outpatient (CLI) | payer MEDICARE, OTHER, SELFPAY ==
--- NOTE | 2022-11-16 11:32 | RAD_ITS ---
STUDY: X-RAY CHEST REASON FOR EXAM: Male, 67 years old. Shortness of breath. Aortic valve replacement 2 weeks ago. TECHNIQUE: PA and lateral views of the chest. COMPARISON: September 30, 2022. FINDINGS: The lungs are clear and expanded. There is no demonstrated pleural abnormality. Normal size heart. There is evidence of interval aortic valve replacement. Normal mediastinum and noelle. Normal visualized pulmonary arteries. There is atherosclerotic calcification of the aortic arch with tortuosity. There are diffuse degenerative changes of the visualized thoracic spine. There is degenerative osteoarthritis of the bilateral shoulders. There is no demonstrated abnormality of the visualized soft tissue structures of the upper abdomen. RAD/Chest PA and Lateral IMPRESSION: Evidence of aortic valve replacement. There is no acute cardiopulmonary disease or other major interval change. Electronically Signed: Shiva Galvez DO at 18:19 EDT ,
[2022-11-16 12:52] LABS: Absolute Neutrophil Count 7.9 X10^3/uL (2.0-7.7); Basophil# 0.21 X10^3/uL; Basophil% 1.7 % (0-1); Eosinophils% 3.3 % (0-5); Hemoglobin 15.5 g/dL (13.0-16.5); Lymphocyte % 22.4 % (19-41); Mean Corp Hgb Conc 33.7 g/dL (32-36); Mean Corpuscular Hgb 31.4 pg (27.0-32.0); Mean Corpuscular Volume 93.3 fL (80-94); Mean Platelet Vol. 10.4 fl (6.2-12.0); Monocyte# 0.83 X10^3/uL; Monocyte% 6.9 % (0-10); NRBC Flagged by Analyzer 0 % (0-5); Neutrophil # 7.86 X10^3/uL (2.7-7.7); Platelet Count 320 K/mm3 (150-450); RBC Distribution Width CV 13.4 % (11.6-14.6); RBC Distribution Width SD 45.5 fl (35.1-43.9); Red Blood Count 4.93 M/mm3 (4.6-6.2); White Blood Count 12.1 K/mm3 (4.4-11.0)
[2022-11-16 13:31] LABS: Anion Gap 7 (5-15); BUN 20 mg/dL (7-18); BUN/Creat Ratio 20.1 RATIO (10-20); Calcium,Total 9.7 mg/dL (8.5-10.1); Chloride 108 mmol/L (98-107); EST Glomerular Filtration Rate 79 mL/min (>60); Est Glom Filt Rate - Afr Amer 96 mL/min (>60); Glucose 149 mg/dL (74-106); Potassium 4.2 mmol/L (3.5-5.1); Sodium Level 137 mmol/L (136-145)
[2022-11-16 13:39] LABS: BNP,B-Type NATRIURETIC PEPTIDE 16.2 pg/mL (0-100)
== END | disposition home or self-care (01) ==
LOC: RAD 11:13
PROVIDERS: PCP Family Medicine; Referring Provider Nurse Practitioner Family; Visit Provider Nurse Practitioner Family
DX: R06.09 Other forms of dyspnea (principal); I25.10 Atherosclerotic heart disease of native coronary artery without angina pectoris; I10 Essential (primary) hypertension; K59.09 Other constipation; Z95.5 Presence of coronary angioplasty implant and graft; Z98.890 Other specified postprocedural states
CPT/HCPCS: 36415; 71046; 80048; 83880; 85025

== ENCOUNTER → 2022-12-07 | Outpatient (CLI) | payer MEDICARE, OTHER, SELFPAY ==
--- NOTE | 2022-12-07 07:48 | ECHOD_ITS ---
Reason For Study: PROSTHETIC HEART VALVE Procedure This was a 2D Doppler, Color Flow transthoracic echocardiogram. Exam performed in department. Left Ventricle Normal LV size. Left ventricular systolic function is normal. The estimated ejection fraction is 55 %. No regional wall motion abnormalities noted. Right Ventricle Normal RV size. Normal systolic function. Atria Normal left atrium. Normal right atrium. Mitral Valve Normal mitral valve. Tricuspid Valve Normal tricuspid valve. Mild (1+) tricuspid valve insufficiency. Pulmonary artery systolic pressure is 33 mmHg. Aortic Valve Peak aortic valve gradient 15 mmHg. Mean aortic valve gradient 8 mmHg. Normal prosthetic aortic valve. Pulmonic Valve Normal pulmonic valve. Great Vessels Normal aortic root. The pulmonary artery is normal size. Normal inferior vena cava. Pericardium/Pleural No pericardial effusion. MMode/2D Measurements & Calculations LVIDd: 4.5 cm IVSd: 1.2 cm LVOT diam: 2.0 cm LVIDs: 3.5 cm LVPWd: 0.97 cm LVOT area: 3.0 cm2 FS: 23.4 % Ao root diam: 4.1 cm LAV(MOD-bp): 80.9 ml LVAd ap4: 29.6 cm2 LAV(MOD-bp) Indexed: 36.0 ml/m2 LVLd ap4: 8.1 cm LAV(MOD-sp2): 91.7 ml EDV(MOD-sp4): 90.1 ml LAV(MOD-sp4): 63.3 ml EDV(sp4-el): 92.0 ml LVAs ap4: 16.9 cm2 LVLs ap4: 6.2 cm ESV(MOD-sp4): 39.1 ml ESV(sp4-el): 39.5 ml EF(MOD-sp4): 56.6 % EF(sp4-el): 57.0 % SV(MOD-sp4): 51.0 ml SV(sp4-el): 52.5 ml LA A4 area: 23.0 cm2 LA dimension(2D): 3.8 cm RA A4 area: 19.2 cm2 Time Measurements MV dec time: 0.32 sec Doppler Measurements & Calculations MV E max franco: 97.2 cm/sec Lat Peak E' Franco: 7.9 cm/sec MV V2 max: 126.7 cm/sec MV A max franco: 125.3 cm/sec E/E' lat: 12.4 MV max P.4 mmHg MV E/A: 0.78 MV V2 mean: 74.6 cm/sec MV mean P.5 mmHg MV V2 VTI: 42.5 cm MVA(VTI): 2.4 cm2 MV dec slope: 308.8 cm/sec2 Ao V2 max: 192.6 cm/sec LV V1 max: 155.0 cm/sec Ao max P.9 mmHg LV V1 max P.6 mmHg Ao V2 mean: 129.9 cm/sec LV V1 mean P.8 mmHg Ao mean P.9 mmHg LV V1 mean: 112.8 cm/sec Ao V2 VTI: 40.0 cm LV V1 VTI: 33.5 cm AV (velocity ratio): 0.84 AMAURY(I,D): 2.6 cm2 AMAURY(V,D): 2.4 cm2 MR max franco: 6.1 cm/sec SV(LVOT): 102.0 ml PA V2 max: 119.1 cm/sec MR max P.01 mmHg PA V2 mean: 70.7 cm/sec TR max franco: 271.8 cm/sec TR max P.5 mmHg ECHO/Echo Complete Interpretation Summary Normal LV size. Left ventricular systolic function is normal. The estimated ejection fraction is 55 %. Normal prosthetic aortic valve. Mean aortic valve gradient 8 mmHg. Pulmonary artery systolic pressure is 33 mmHg. Compared to the previous there has been an interval change in the aortic valve. Ordering Physician: Farhad Chacon Referring Physician: Farhad Chacon Performed By: Kavita Carroll RCS
== END | disposition home or self-care (01) ==
LOC: CVS 07:46
PROVIDERS: PCP Family Medicine; Referring Provider Nurse Practitioner Family; Visit Provider Nurse Practitioner Family
DX: I25.10 Atherosclerotic heart disease of native coronary artery without angina pectoris (principal); R06.09 Other forms of dyspnea; Z95.2 Presence of prosthetic heart valve; Z95.5 Presence of coronary angioplasty implant and graft
CPT/HCPCS: 93306

== ENCOUNTER → 2022-12-31 | Outpatient (CLI) | payer MEDICARE, OTHER, SELFPAY ==
--- NOTE | 2022-12-31 09:10 | RAD_ITS ---
INDICATION: FLANK PAIN EXAMINATION/TECHNIQUE: X-RAY - XR Abdomen W/ Decub and/or Erect Views COMPARISON: None. FINDINGS: BOWEL GAS PATTERN: Non-obstructive. No bowel or stomach distention. FREE AIR: Not assessed on a single supine view. ORGANOMEGALY: Not seen. CALCIFICATIONS: No abnormal calcifications observed. LOWER CHEST: No acute pathology. BONES AND SOFT TISSUES: No acute pathology. RAD/Abd Inc Decub and/or Erect IMPRESSION: Non-obstructive bowel gas pattern. Electronically Signed: Emmett Anaya MD at 15:16 EDT ,
== END | disposition home or self-care (01) ==
LOC: MTRAD 08:57
PROVIDERS: PCP Family Medicine; Visit Provider Family Medicine
DX: R10.9 Unspecified abdominal pain (principal)
CPT/HCPCS: 74019

== ENCOUNTER → 2023-01-13 | Outpatient (CLI) | payer MEDICARE, OTHER, SELFPAY ==
--- NOTE | 2023-01-13 07:41 | CT_ITS ---
STUDY: CT ABDOMEN AND PELVIS WITH AND WITHOUT CONTRAST REASON FOR EXAM: Male, 67 years old. flank pain, kidney stone, b/l kidney pain RADIATION DOSAGE (If Supplied By Facility): CTDIvol = ( 26.65 ) mGy, DLP = ( 4059.77 ) mGycm TECHNIQUE: Transaxial images were obtained from the dome of the diaphragm to the symphysis pubis without oral contrast. IV 100mL Isovue-300 was administered. Sagittal and coronal images were reconstructed. Individualized dose optimization techniques were used for this CT. COMPARISON: None. FINDINGS: The visualized lung bases are unremarkable. The visualized portions of the heart are within normal limits. Normal liver. Normal gallbladder and extrahepatic biliary system. Normal spleen. Normal pancreas. Normal bilateral adrenal glands. 6 cm exophytic cyst in the upper pole the right kidney. Normal left kidney. Normal visualized stomach. Normal small intestine. Normal colon. There is non-visualization of the appendix. 3.2 cm fusiform aneurysm of the infrarenal abdominal aorta. Normal inferior vena cava. Normal retroperitoneum. Normal urinary bladder. 5 cm umbilical hernia containing fat. There are diffuse degenerative changes of the visualized lumbar spine. CT/CT Abd/Pelvis W/WO Contrast IMPRESSION: 1. No renal or ureteral stone. 2. 6 cm exophytic cyst in the upper pole the right kidney. 3. 5 cm umbilical hernia containing fat. Electronically Signed: Rupert Guerrero MD at 19:24 EDT ,
[2023-01-13 08:06] LABS: CREATININE FINGERSTICK 1.1 mg/dL (0.70-1.30); EGFR FINGERSTICK > 60.0000 mL/min (>60)
== END | disposition home or self-care (01) ==
LOC: CT 07:41
PROVIDERS: PCP Family Medicine; Referring Provider Family Medicine; Visit Provider Family Medicine
DX: N20.0 Calculus of kidney (principal)
CPT/HCPCS: 74178; Q9967; A4216

== ENCOUNTER → 2023-01-26 | Outpatient (CLI) | payer MEDICARE, OTHER, SELFPAY ==
--- NOTE | 2023-01-26 07:45 | AAAS_ITS ---
Reason For Study: AAA Aorta Measurements Aorta Doppler Measurements Proximal aorta measures2.09 x 2.06cm. in cross- Peak systolic flow velocities within the proximal sectional axis. aorta measure 61.4 cm/sec. Proximal aorta measures2.08cm. in longitudinal Peak systolic flow velocities within the mid aorta axis. measure 99.5 cm/sec. Mid aorta measures1.99 x 1.91cm. in cross- Peak systolic flow velocities within the distal sectional axis. aorta measure 85 cm/sec. Mid aorta measures1.96cm. in longitudinal axis. Distal aorta measures2.90 x 2.90cm. in cross- sectional axis. Distal aorta measures2.87cm. in longitudinal axis. Left Iliac Artery Left iliac artery measures 1.01 x 1.07 cm. in the cross-sectional axis. Left iliac artery measures 1.05 cm. in the longitudinal axis. Peak systolic velocity in the left iliac artery measures 144.8 cm/sec. Right Iliac Artery Right iliac artery measures 1.24 x 1.29 cm. in the cross-sectional axis. Right iliac artery measures 1.31 cm. in the longitudinal axis. Peak systolic velocity in the right iliac artery measures 119.4 cm/sec. Procedure Aorta IVC Iliac vasculature or bypass grafts 56583. Exam performed in department. VL/AAA Screening Interpretation Summary Maximal diameter of the distal abdominal aorta 2.82 x 2.72 cm consistent with e ctasia, normal velocities Left common iliac is normal at 1.01 x 1.07 cm diameter with a minimally elevate d flow rate of 544.8 cm/s Right common iliac artery is normal 1.24 x 1.29 cm diameter with a normal flow rate of 119 cm/s Ordering Physician: Thomas Bryant Referring Physician: Luis Ochoa Performed By: Sara Zelaya RVT
== END | disposition home or self-care (01) ==
LOC: CVS 07:45
PROVIDERS: PCP Family Medicine; Referring Provider Surgery; Visit Provider Surgery
DX: I71.40 Abdominal aortic aneurysm, without rupture, unspecified (principal)
CPT/HCPCS: 76706

== ENCOUNTER → 2023-02-10 | Outpatient (CLI) | payer MEDICARE, OTHER, SELFPAY ==
[2023-02-10 09:48] LABS: Absolute Lymphocyte Count 1.65 X10^3/uL (0.83-4.51); Absolute Neutrophil Count 2.9 X10^3/uL (2.0-7.7); Basophil% 1.9 % (0-1); Eosinophil# 0.27 X10^3/uL; Hematocrit 43.8 % (40-54); Hemoglobin 14.7 g/dL (13.0-16.5); Lymphocyte # 1.65 X10^3/ul (0.83-4.51); Lymphocyte % 30.7 % (19-41); Mean Corp Hgb Conc 33.6 g/dL (32-36); Mean Corpuscular Hgb 31.4 pg (27.0-32.0); Mean Corpuscular Volume 93.6 fL (80-94); Mean Platelet Vol. 11.5 fl (6.2-12.0); Monocyte# 0.42 X10^3/uL; Monocyte% 7.8 % (0-10); NRBC Flagged by Analyzer 0 % (0-5); Neutrophil # 2.91 X10^3/uL (2.7-7.7); Neutrophil % 54.2 % (47-70); Platelet Count 187 K/mm3 (150-450); RBC Distribution Width CV 12.9 % (11.6-14.6); RBC Distribution Width SD 44.1 fl (35.1-43.9); Red Blood Count 4.68 M/mm3 (4.6-6.2); White Blood Count 5.4 K/mm3 (4.4-11.0)
[2023-02-10 10:30] LABS: Anion Gap 5 (5-15); BUN 20 mg/dL (7-18); BUN/Creat Ratio 22.4 RATIO (10-20); Calcium,Total 9.3 mg/dL (8.5-10.1); Chloride 108 mmol/L (98-107); Creatinine, Serum 0.89 mg/dL (0.70-1.30); EST Glomerular Filtration Rate 89 mL/min (>60); Est Glom Filt Rate - Afr Amer 108 mL/min (>60); Glucose 202 mg/dL (74-106); Potassium 4.4 mmol/L (3.5-5.1); Sodium Level 138 mmol/L (136-145)
== END | disposition home or self-care (01) ==
PROVIDERS: PCP Family Medicine; Referring Provider Urology; Visit Provider Urology
DX: R10.9 Unspecified abdominal pain (principal); Z12.5 Encounter for screening for malignant neoplasm of prostate
CPT/HCPCS: 36415; 80048; 85025

== ENCOUNTER → 2023-02-23 | Outpatient (CLI) | payer MEDICARE, OTHER, SELFPAY ==
--- NOTE | 2023-02-23 07:51 | VDLE_ITS ---
Reason For Study: RLE PAIN RIGHT LEFT GSV is normal. CFV is compressible, spontaneous, phasic, CFV is compressible, spontaneous, phasic, competent, and demonstrates normal competent and demonstrates normal augmentation. augmentation. FV is compressible, spontaneous, phasic, competent and demonstrates normal augmentation. POP V is compressible, spontaneous, phasic, competent and demonstrates normal augmentation. T/P Trunk is compressible. PTV is compressible. RT PerV is compressible. Procedure This is a venous duplex using B-mode, color flow and spectral Doppler. Exam performed in department. The exam was diagnostic. A preliminary report was called and/or faxed to Dr. Martin @ [phone] @8:25 am. VL/Venous Duplex US, Unilateral Interpretation Summary Deep veins of the right lower extremity are patent and compressible segmentally . There is no evidence of right lower extremity deep vein thrombosis. The right great [place] us vein appears patent and compressible segmentally. Ordering Physician: Elizabet Martin Referring Physician: Elizabet Martin Performed By: Nichol Angulo, BRADY, RVT
== END | disposition home or self-care (01) ==
LOC: CVS 07:42
PROVIDERS: PCP Family Medicine; Referring Provider Family Medicine; Visit Provider Family Medicine
DX: M79.662 Pain in left lower leg (principal)
CPT/HCPCS: 93971

== ENCOUNTER → 2023-02-28 | Outpatient (CLI) | payer MEDICARE, OTHER, SELFPAY ==
--- NOTE | 2023-02-28 07:45 | CDU_ITS ---
Reason For Study: Carotid Artery Disease Rt. Velocities/BP Lt. Velocities/BP Prox CCA 91/12 cm/sec. Prox CCA 92/6 cm/sec. Mid CCA 86/13 cm/sec. Mid CCA 89/13 cm/sec. Dist CCA 77/13 cm/sec. Dist CCA 61/10 cm/sec. Prox ICA 61/14 cm/sec. Prox ICA 57/8 cm/sec. Mid ICA 62/13 cm/sec. Mid ICA 65/17 cm/sec. Dist ICA 72/17 cm/sec. Dist ICA 83/20 cm/sec. Rt. ICA/CCA = 0.8. Lt. ICA/CCA = 0.9. Prox ECA 99/10 cm/sec. Prox ECA 69/6 cm/sec. Rt. Vert. 41/10 cm/sec. Lt. Vert. 37/9 cm/sec. Right Extracranial There is heterogeneous, irregular atherosclerotic plaque noted in the right common carotid artery. There is heterogeneous, irregular atherosclerotic plaque noted in the right internal carotid artery. The atherosclerotic plaque causes acoustic shadowing. There is heterogeneous, irregular atherosclerotic plaque noted in the right external carotid artery. Antegrade flow is noted in the right vertebral artery. Left Extracranial There is heterogeneous, irregular atherosclerotic plaque noted in the left common carotid artery. There is heterogeneous, irregular atherosclerotic plaque noted in the left internal carotid artery. There is intimal thickening but no significant atherosclerotic plaque noted in the left external carotid artery. Antegrade flow is noted in the left vertebral artery. Procedure Carotid Duplex 81902. This is a Carotid Duplex examination using B-mode, color flow and specral Doppler. Exam performed in department. VL/Carotid Duplex Ultrasound Interpretation Summary Irregular calcific plaque with shadowing at the proximal internal carotid arter y with less than 50% stenosis of the right internal carotid Less than 50% stenosis right external carotid Smaller amount of irregular plaque at the proximal left internal carotid artery with less than 50% stenosis Less than 50% stenosis left external carotid artery Patent and antegrade vertebral arteries bilaterally Ordering Physician: Elina Henriquez Referring Physician: Luis Ochoa Performed By: Charlene Chacon, BRADY, RVT
== END | disposition home or self-care (01) ==
LOC: CVS 07:44
PROVIDERS: PCP Family Medicine; Referring Provider Physician Assistant; Visit Provider Physician Assistant
DX: I65.23 Occlusion and stenosis of bilateral carotid arteries (principal)
CPT/HCPCS: 93880

== ENCOUNTER 2023-03-18 15:18 | Emergency (ER) | payer OTHER, MEDICARE, SELFPAY ==
[2023-03-18] VITALS (7 sets, daily range): BP systolic 137–141; BP diastolic 55–61; PULSE 71–73; RESP 16–18; TEMP 36.9; O2SAT 93–96; BMI 41.8
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
--- NOTE | 2023-03-18 15:50 | RAD_ITS ---
STUDY: X-RAY CHEST REASON FOR EXAM: Male, 67 years old. chest pain TECHNIQUE: Frontal and lateral views of the chest. COMPARISON: November 16, 2022 FINDINGS: Endovascular stent well unchanged. The lungs are clear and expanded. There is no demonstrated pleural abnormality. Normal size heart. Normal mediastinum and noelle. Normal visualized pulmonary arteries. Normal visualized aortic arch and descending thoracic aorta. Normal visualized thoracic spine. Normal visualized ribs, clavicles, and shoulders. There is no demonstrated abnormality of the visualized soft tissue structures of the upper abdomen. RAD/Chest PA and Lateral IMPRESSION: No acute disease Electronically Signed: Sridhar Asif MD at 18:03 EDT ,
[2023-03-18 15:52] LABS: Absolute Lymphocyte Count 1.69 X10^3/uL (0.83-4.51); Basophil# 0.11 X10^3/uL; Eosinophil# 0.26 X10^3/uL; Eosinophils% 4.6 % (0-5); Hematocrit 41.7 % (40-54); Hemoglobin 13.7 g/dL (13.0-16.5); Lymphocyte # 1.69 X10^3/ul (0.83-4.51); Lymphocyte % 30.1 % (19-41); Mean Corp Hgb Conc 32.9 g/dL (32-36); Mean Corpuscular Hgb 31.1 pg (27.0-32.0); Mean Corpuscular Volume 94.6 fL (80-94); Mean Platelet Vol. 11.5 fl (6.2-12.0); Monocyte# 0.51 X10^3/uL; Monocyte% 9.1 % (0-10); NRBC Flagged by Analyzer 0 % (0-5); Neutrophil # 2.99 X10^3/uL (2.7-7.7); Neutrophil % 53.3 % (47-70); Platelet Count 143 K/mm3 (150-450); RBC Distribution Width CV 13.6 % (11.6-14.6); RBC Distribution Width SD 47.3 fl (35.1-43.9); Red Blood Count 4.41 M/mm3 (4.6-6.2); White Blood Count 5.6 K/mm3 (4.4-11.0)
[2023-03-18 16:03] LABS: Partial Thromboplast Time 23.3 Seconds (24.1-36.2); Prothrombin Time (Protime)PT. 13.5 SECONDS (11.7-14.9)
[2023-03-18 16:32] LABS: Anion Gap 7 (5-15); BUN 28 mg/dL (7-18); Calcium,Total 8.4 mg/dL (8.5-10.1); Chloride 107 mmol/L (98-107); Creatinine, Serum 1.27 mg/dL (0.70-1.30); EST Glomerular Filtration Rate 60 mL/min (>60); Est Glom Filt Rate - Afr Amer 72 mL/min (>60); Estimated Creatinine Clearance 53.11 ml/min; Glucose 257 mg/dL (74-106); Potassium 4.3 mmol/L (3.5-5.1); Sodium Level 139 mmol/L (136-145); Troponin-I HS (w/2H Reflex) 6 pg/mL (3.0-78.0)
[2023-03-18 17:49] LABS: Reflex Troponin-HS? (from REC) Y
[2023-03-18 18:26] LABS: Troponin-I HS 7 pg/mL (3.0-78.0)
[2023-03-18] MEDS: HYDROcodone Bitartrate/Apap 5/325 Tablet PO (18:50)
== END 2023-03-18 18:57 | disposition home or self-care (01) ==
PROVIDERS: Emergency Provider Emergency Medicine; PCP Family Medicine; Visit Provider Emergency Medicine
DX: R07.89 Other chest pain (principal); I25.10 Atherosclerotic heart disease of native coronary artery without angina pectoris; G47.33 Obstructive sleep apnea (adult) (pediatric); Z87.891 Personal history of nicotine dependence; V89.2XXA Person injured in unspecified motor-vehicle accident, traffic, initial encounter; Z95.5 Presence of coronary angioplasty implant and graft
CPT/HCPCS: 71046; 80048; 84484; 85025; 85610; 85730; 93005; 99285

== ENCOUNTER → 2023-05-10 | Outpatient (CLI) | payer MEDICARE, OTHER, SELFPAY ==
--- NOTE | 2023-05-10 07:14 | CT_ITS ---
STUDY: CT MAXILLOFACIAL SINUSES REASON FOR EXAM: Male, 68 years old. Facial pain and pressure RADIATION DOSAGE (If Supplied By Facility): CTDIvol = ( 33.06 ) mGy, DLP = ( 788.40 ) mGycm TECHNIQUE: The patient was scanned in a multi detector CT scanner. High resolution axial imaging was performed without the administration of intravenous contrast material. Sagittal and coronal images were reconstructed. Individualized dose optimization techniques were used for this CT. COMPARISON: None. FINDINGS: FRONTAL SINUSES: Normal aeration, without mucosal inflammatory disease. SPHENOIDAL SINUSES: Normal aeration, without mucosal inflammatory disease. 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 The medial wall of the right maxillary sinus is absent.. I suspect this is due to antrectomy as there is also evidence of left antrectomy. There is no significant mucosal thickening noted in the left maxillary or left sphenoid sinus The right ostiomeatal complex is occluded, left is patent No evidence of a nadira bullosa. Normal midline nasal septum. There is patency of the bilateral nasal airways. The visualized osseous structures are normal. The visualized bilateral orbital contents are normal. Evidence to suspect extensive periodontal disease in the mandible, dental consultation recommended CT/Sinus/Facial Bone IMPRESSION: Near complete occlusion of the right maxillary sinus with occlusion of the right ostiomeatal complex and soft tissue extension into the right ethmoid sinus. 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 Evidence of previous left antrectomy, but no CT evidence of left maxillary, left ethmoid, frontal or sphenoid sinusitis Extensive periodontal disease particularly in the mandible, dental consultation recommended. No demonstrated fracture or suspicious osseous lesion Electronically Signed: Trenton Barth MD at 11:41 EST ,
== END | disposition home or self-care (01) ==
LOC: CT 07:14
PROVIDERS: PCP Family Medicine; Referring Provider Family Medicine; Visit Provider Family Medicine
DX: J32.9 Chronic sinusitis, unspecified (principal)
CPT/HCPCS: 70486

== ENCOUNTER → 2023-05-14 | Outpatient (CLI) | payer MEDICARE, OTHER, SELFPAY | END | disposition home or self-care (01) | LOC: LABSPEC 11:28 | PROVIDERS: PCP Family Medicine; Referring Provider Otolaryngology; Visit Provider Otolaryngology | DX: J32.9 Chronic sinusitis, unspecified (principal) | CPT/HCPCS: 87070; 87186; 87205 ==

== ENCOUNTER → 2023-06-17 | Outpatient (CLI) | payer MEDICARE, OTHER, SELFPAY ==
--- OUTSIDE RECORDS SUMMARY | 2023-06-17 09:46 | XMS RPT_ITS | CCD ---
Author Name Unknown Address 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 Name Role Phone YOAN DE LA ROSA Attending Unavailable IMCA Referring Unavailable [facility], [facility] Primary Care Unavailable RJ, YOAN Attending Unavailable IMCA Referring Unavailable [facility] Primary Care Unavailable RJ, YOAN Attending Unavailable RJ, YOAN Referring Unavailable [facility], [facility] Primary Care Unavailable RJ, YOAN Referring Unavailable [facility], [facility] Primary Care Unavailable RJ, YOAN Attending Unavailable RJ, YOAN Referring Unavailable [facility], [facility] Primary Care Unavailable RJ, YOAN Attending Unavailable RJ, YOAN Referring Unavailable [facility], ISABELLA G Primary Care Unavailable RJ, YOAN Attending Unavailable RJ, YOAN Referring Unavailable [facility], [facility] Primary Care Unavailable MARIA G LOFTON (PA) Referring Unavailable MARIA G LOFTON (PA) Referring Unavailable MARIA G LOFTON (PA) Attending Unavailable DR LUIS CATALAN MD Primary Care Physician [facility] Primary Care Provider Luis Catalan MD Primary Care Provider SRIDHAR FUENTES Attending Unavailable LUIS CATALAN Primary Care Unavailable ASHLEY HYLTON Attending Unavailable LUIS CATALAN Primary Care Unavailable MEGHANN LEI Attending Unavailable LUIS CATALAN Primary Care Unavailable ASHLEY HYLTON Attending Unavailable ASHLEY HYLTON Referring Unavailable LUIS CATALAN Primary Care Unavailable ASHLEY YHLTON Admitting Unavailable ASHLEY HYLTON Attending Unavailable LUIS CATALAN Primary Care Unavailable ASHLEY HYLTON Attending Unavailable ASHLEY HYLTON Referring Unavailable LUIS CATALAN Primary Care Unavailable ANALI HYLTON Attending Unavailable ANALI HYLTON Referring Unavailable LUIS CATALAN Primary Care Unavailable Nadir Ang Unavailable Yoan De La Rosa MD Unavailable Skye FAM, Maria G Primary Care Provider [phone] CHRIS PAGE Attending Unavailab MARIA G Rose Primary Care Unavailable Medications Current Medications Medication Drug Class(es) Dates Sig (Normalized) Sig (Original) pravastatin sodium 80 mg oral tablet (9 sources) HMG-CoA Reductase Inhibitor Start: 08-16-2022 End: 11-02-2022 take 1 tablet by mouth once daily pravastatin (Pravachol) 80 MG tablet Take 80 mg by mouth Nightly. 0 08/16/2022 Active Completed/Discontinued Medications Medication Drug Class(es) Dates Sig (Normalized) Sig (Original) acetaminophen 325 mg oral tablet (1 source) Start: 11-01-2022 End: 11-02-2022 take 1 tablet by mouth every four hours as needed for pain 650 mg, Oral, Every 4 hours PRN, mild pain (1-3), Fever > 100.5 F (38 C), Starting on 11/01/22 at 1404, [facility] Unit Maximum dose of acetaminophen is 4000 mg from all sources in 24 hours. apixaban (1 source) Factor Xa Inhibitor apixaban (ELIQUIS ORAL) Take by mouth. 0 Active Problems Active Problems Problem Classification Problem Date Documented Date Episodic/Chronic Cardiac dysrhythmias (14 sources) Paroxysmal atrial fibrillation; Translations: [Paroxysmal atrial fibrillation] Onset: 10-14-2022 10-14-2022 Chronic Cardiac dysrhythmias (1 source) Palpitations; Translations: [Palpitations] 08-12-2016 Episodic Coma; stupor; and brain damage (1 source) Daytime somnolence; Translations: [Somnolence] 08-12-2016 Episodic Coronary atherosclerosis and other heart disease (9 sources) Coronary arteriosclerosis; Translations: [Atherosclerotic heart disease of [place] coronary artery without angina pectoris] Onset: 10-14-2022 10-14-2022 Chronic Disorders of lipid metabolism (12 sources) Hyperlipidemia; Translations: [Hyperlipidemia, unspecified] Onset: 10-14-2022 10-14-2022 Chronic Esophageal disorders (9 sources) Gastroesophageal reflux disease; Translations: [Gastro-esophageal reflux disease without esophagitis] Onset: 10-14-2022 10-14-2022 Chronic Essential hypertension (9 sources) Hypertensive disorder; Translations: [Essential (primary) hypertension] Onset: 10-14-2022 10-14-2022 Chronic Genitourinary symptoms and ill-defined conditions (3 sources) Retention of urine, unspecified; Translations: [Increased frequency of urination] Onset: 09-11-2018 03-30-2023 Episodic Heart valve disorders (20 sources) Aortic valve stenosis; Translations: [Nonrheumatic aortic (valve) stenosis] Onset: 10-26-2022 Chronic Hyperplasia of prostate (9 sources) Benign prostatic hyperplasia; Translations: [Benign prostatic hyperplasia without lower urinary tract symptoms] Onset: 10-14-2022 10-14-2022 Chronic Hypertension with complications and secondary hypertension (3 sources) Secondary hypertension; Translations: [Secondary hypertension, unspecified] Onset: 10-14-2022 11-10-2022 Chronic Osteoarthritis (1 source) Arthritis; Translations: [Unspecified osteoarthritis, unspecified site] Onset: 09-06-2016 09-06-2016 Chronic Other aftercare (1 source) Drug therapy finding; Translations: [manager terminal (current) use of anticoagulants] 08-12-2016 Episodic Other liver diseases (2 sources) Fatty (change of) liver, not elsewhere classified Onset: 06-22-2018 Chronic Other liver diseases (1 source) Steatosis of liver; Translations: [Fatty (change of) liver, not elsewhere classified] Onset: 06-22-2018 06-22-2018 Chronic Other lower respiratory disease (2 sources) Dyspnea, unspecified; Translations: [Dyspnea, unspecified] Onset: 10-26-2022 Episodic Other lower respiratory disease (1 source) Dyspnea; Translations: [Shortness of breath] 08-12-2016 Episodic Other nutritional; endocrine; and metabolic disorders (1 source) Constitutional obesity; Translations: [Other obesity] Onset: 11-11-2016 11-11-2016 Chronic Residual codes; unclassified (9 sources) Obstructive sleep apnea syndrome; Translations: [Obstructive sleep apnea (adult) (pediatric)] Onset: 07-29-2016 10-14-2022 Chronic Rheumatoid arthritis and related disease (9 sources) Rheumatoid arthritis of multiple joints; Translations: [Rheumatoid arthritis without rheumatoid factor, multiple sites] Onset: 09-06-2016 10-14-2022 Chronic Unclassified (1 source) Retention [207] Onset: 08-25-2018 Past or Other Problems Problem Classification Problem Date Documented Da te Episodic/Chronic Other aftercare (1 source) manager terminal methotrexate user; Translations: [manager terminal methotrexate user] Onset: 12-06-2016 12-06-2016 Episodic Other lower respiratory disease (1 source) Chronic cough; Translations: [Chronic cough] Onset: 11-11-2016 11-11-2016 Episodic Other non-traumatic joint disorders (1 source) Pain in right knee; Translations: [Pain in joint, lower leg] Onset: 09-06-2016 09-06-2016 Episodic Other non-traumatic joint disorders (1 source) Pain of right wrist; Translations: [Pain in right wrist] Onset: 09-06-2016 09-06-2016 Episodic Other screening for suspected conditions (not mental disorders or infectious disease) (1 source) Elevated C-reactive protein; Translations: [Elevated C-reactive protein (CRP)] Onset: 09-06-2016 09-06-2016 Episodic Other upper respiratory infections (1 source) Posterior rhinorrhea; Translations: [Postnasal drip] Onset: 11-11-2016 11-11-2016 Episodic Results Test Name Value Interpretation Reference Range Facil ity Vital Signs Date Time Vital Sign Value Performing Clinician Marlee silver 03-30-2023 08:20-0500 Body height 172.7 cm Chris Page MD Work Phone: [facility] 03-30-2023 08:20-0500 Body weight 119.39 kg Chris Page MD Work Phone: [facility] 03-30-2023 08:20-0500 Diastolic blood pressure 78 mm[Hg] Chris Page MD Work Phone: [facility] 03-30-2023 08:20-0500 Heart rate 81 /min Chris Page MD Work Phone: [facility] 03-30-2023 08:20-0500 Systolic blood pressure 144 mm[Hg] Chris Page MD Work Phone: [facility] 11-11-2022 10:35-0400 Body height 172.7 cm Meghann Madsen CNP Work Phone: [facility] 11-11-2022 10:35-0400 Body mass index (BMI) [Ratio] 37.77 kg/m2 Meghann Lei APRN - [employer] OPERATOR Work Phone: [facility] 11-11-2022 10:35-0400 Body weight 112.67 kg Meghann Lei APRN - [employer] M[employer] OPERATOR Work Phone: [facility] 11-11-2022 10:35-0400 Diastolic blood pressure 80 mm[Hg] Meghann Lei APRN - [employer] M[employer] OPERATOR Work Phone: [facility] 11-11-2022 10:35-0400 Heart rate 77 /min Meghann Lei APRN - [employer] M[employer] OPERATOR Work Phone: [facility] 11-11-2022 10:35-0400 SaO2% (BldA) [Mass fraction] 96 % Meghann Lei APRN - [employer] M[employer] OPERATOR Work Phone: [facility] 11-11-2022 10:35-0400 Systolic blood pressure 133 mm[Hg] Meghann Lei APRN - [employer] M[employer] OPERATOR Work Phone: [facility] 11-02-2022 12:00-0400 Body temperature 97.39 [degF] Ashley Hylton MD Work Phone: [facility] 11-02-2022 12:00-0400 Diastolic blood pressure 91 mm[Hg] Ashley Hylton MD Work Phone: [facility] 11-02-2022 12:00-0400 Heart rate 97 /min Ashley Hylton MD Work Phone: [facility] 11-02-2022 12:00-0400 Respiratory rate 18 /min Ashley Hylton MD Work Phone: [facility] 11-02-2022 12:00-0400 SaO2% (BldA) [Mass fraction] 95 % Ashley Hylton MD Work Phone: [facility] 11-02-2022 12:00-0400 Systolic blood pressure 160 mm[Hg] Ashley Hylton MD Work Phone: [facility] 11-02-2022 10:50-0400 Body height 172.7 cm Ashley Hylton MD Work Phone: [facility] 11-02-2022 10:50-0400 Body mass index (BMI) [Ratio] 37.4 kg/m2 Ashley Hylton MD Work Phone: [facility] 11-02-2022 10:50-0400 Body weight 111.58 kg Ashley Hylton MD Work Phone: [facility] 10-26-2022 14:25-0400 Body height 172.7 cm Srihdar Fuentes MD Work Phone: [facility] 10-26-2022 14:25-0400 Body mass index (BMI) [Ratio] 37.54 kg/m2 Sridhar Fuentes MD Work Phone: [facility] 10-26-2022 14:25-0400 Body weight 112 kg Sridhar Fuentes MD Work Phone: [facility] 10-26-2022 14:25-0400 Diastolic blood pressure 100 mm[Hg] Sridhar Fuentes MD Work Phone: [facility] 10-26-2022 14:25-0400 Heart rate 113 /min Sridhar Fuentes MD Work Phone: [facility] 10-26-2022 14:25-0400 Systolic blood pressure 144 mm[Hg] Sridhar Fuentes MD Work Phone: [facility] Encounters Encounter Date Encounter Type Care Provider Facility Start: 03-30-2023 End: 03-30-2023 ambulatory CHRIS PAGE Facility:[id number] Start: 03-30-2023 End: 03-30-2023 Patient encounter procedure Chris Page MD Work Phone: Urology Procedures Date Procedure Procedure Detail Performing Clinician Start: 03-30-2023 Urnls dip stick/tablet rgnt auto w/o microscopy Chris Page MD Work Phone: Start: 11-11-2022 Ecg routine ecg w/least 12 lds trcg only w/o i&r Ashley Hylton MD Work Phone: Start: 11-02-2022 Echo tthrc r-t 2d w/wom-mode compl spec&colr d Meghann Velazquez Wally [employer] - [employer] OPERATOR Work Phone: Start: 11-02-2022 Ecg routine ecg w/least 12 lds trcg only w/o i&r Meghann L Wally [employer] - [employer] OPERATOR Work Phone: Start: 11-01-2022 Basic metabolic panel calcium total Meghann Velazquez Wally [employer] - [employer] OPERATOR Work Phone: Start: 11-01-2022 Basic metabolic panel calcium total Meghann Velazquez Wally [employer] - [employer] OPERATOR Work Phone: Start: 11-01-2022 Ecg routine ecg w/least 12 lds trcg only w/o i&r Ashley Hylton MD Work Phone: Start: 11-01-2022 Ecg routine ecg w/least 12 lds trcg only w/o i&r Meghann Velazquez Wally [employer] - [employer] OPERATOR Work Phone: Start: 11-01-2022 OXYGEN THERAPY Meghann Marcus Lei AP RN - [employer] OPERATOR Work Phone: Start: 11-01-2022 PULSE OXIMETRY, CONTINUOUS Meghann Velazquez Candy royal [employer] - [employer] OPERATOR Work Phone: Start: 11-01-2022 Cardiac catheterization study Ashley Hylton MD Work Phone: Start: 11-01-2022 Echo transthorc r-t 2d w/wo m-mode rec f-up/lmtd Ashley Hylton MD Work Phone: Start: 11-01-2022 End: 11-01-2022 TRANSCATHETER AORTIC VALVE REPLACEMENT (TAVR) - OR Kassidy Mukherjee DO Work Phone: Start: 11-01-2022 Glucose quantitative blood xcpt reagent strip Ashley Hylton MD Work Phone: Start: 10-26-2022 Cta hrt cornry art/bypass grfts contrst 3d post Anali Hylton [employer] - [employer] OPERATOR Work Phone: Start: 10-19-2022 Lipid 1996 panel - Serum or Plasma Elijah Samayoa MD Work Phone: Start: 03-31-2020 Thyrotropin [Units/volume] in Serum or Plasma Sridhar Fuentes MD Work Phone: Start: 05-23-2005 History of placement of stent for coronary artery disease S/P coronary artery stent placement Chris Page MD Work Phone: Plan of Treatment Date Care Activity Detail Author Start: 10-20-2023 Lipid panel Lipid Panel [facility] Start: 01-21-2023 Covid-19 Vaccine ( season) Covid-19 Vaccine () [facility] Start: 01-21-2023 Influenza vaccination Influenza Vaccine (#1) [facility] Start: 12-11-2022 End: 11-11-2024 US Heart Transthoracic Transthoracic echocardiogram (TTE) complete with contrast, bubble, strain, and 3D PRN CV Echocardiography Routine Paroxysmal atrial fibrillation (CMS/HCC) (HCC) Severe aortic stenosis Other hyperlipidemia Secondary hypertension Expected: 12/11/2022 (Approximate), Expires: 11/11/2024 [facility] Immunizations Immunization Date Immunization Notes Care Provider Estefany wheeler 03-03-2022 influenza virus vacc ine, unspecified formulation Meghann Lei [employer] - [employer] OPERATOR Work Phone: [facility] 02-15-2022 influenza virus vacc ine, unspecified formulation Chris Page MD Work Phone: [facility] Payers Date Payer Category Payer Medicare [id number] 2018 Medicare [id number] 2018 Medicare [id number] 2018 Private Health Insurance [id number] 1955 Unknown [id number] 1955 Unknown [id number] 2.16.8 [id number] 1953 Unknown [id number] 2.16.8 [id number] 1955 Unknown [id number] 2.16.8 [id number] 1953 Unknown [id number] 2.16.8 [id number] 1955 Unknown [id number] 2.16.8 [id number] 1955 Unknown [id number] [id number] [id number] Medicare [id number] Unknown [id number] Social History Date Type Detail Facility Tobacco smoking status [facility] Sex Assigned At Male [facility] Tobacco smoking status [facility] Tobacco smoking consumption unknown [facility] Start: 1955 Sex Assigned At Not on file [facility] Start: 11-11-2016 End: 10-14-2022 Tobacco smoking status [facility] Ex-smoker [facility] Start: 05-23-1966 End: 05-23-2005 History of tobacco use Current smoker [facility] Start: 05-23-1966 End: 05-23-2005 History of tobacco use Cigarette Smoker [facility] Start: 10-14-2022 Tobacco use and exposure Smokeless tobacco non-user [facility] Start: 10-26-2022 End: 11-02-2022 Alcohol intake Current drinker of alcohol (finding) [facility] Start: 04-30-2020 End: 10-26-2022 History of Social function [facility] Start: 04-30-2020 End: 10-26-2022 Tobacco use panel [facility] Start: 10-14-2022 [facility] Start: 10-16-2022 End: 11-11-2022 Exposure to SARS-CoV-2 (event) Not sure [facility] Start: 11-11-2022 Alcohol intake Ex-drinker (finding) [facility] Start: 11-11-2016 Tobacco use and exposure Former smokeless tobacco user [facility] End: 05-23-2005 History of tobacco use Chews Tobacco [facility] Start: 03-30-2023 Alcohol intake Current non-dr quiller operator of alcohol (finding) [facility] National Score (1-100), lower number is lower risk Not on file [facility] Start: 06-22-2018 Alcohol Comment Past: social [facility] Medical Equipment Procedure Code Equipment Code Equipment Origin al Text Equipment Identifier Dates Valve Sia 3 C omm 29mm - [id number] - [id number] Start: 11-01-2022 Clinical Notes 10-12-2022 to 03-30-2023 Chris Page MD - 03/30/2023 8:34 AM ESTTelephone Encounter - Yary Whyte - 11/19/2022 9:10 AM EDTTelephone Encounter - Yary Whyte - 11/19/2022 9:10 AM EDT Note Date & Type Note Facility 03-30-2023 Note HNO ID: [id number] Author: Chris Page MD Service: ? Author Type: Physician Type: Progress Notes Filed: 03/30/2023 9:05 AM Note Text: Luly Smart is a 67 year old male who presents with R 6 cm. This gentleman does not bring his x-rays so I cannot review them. He had a TURP a year ago. He also had PSAs at his doctor. He will be getting another 1 in March. In any rate he is has pain that he can touch on his side. He has pain at night. Not when he moves. But he thinks is 6 cm cyst is causing his pain. I told him its not causing pain. But I cannot review that x-ray. But it looks like it is going to be a benign cyst. I told him that you can draw fluid out of the cyst injected but there is no reason to do that here. Hopefully he is happy with his answers. He does have a urologist and this is a second opinion. Review of Systems- Reviewed and otherwise non-contributory. BP 144/78 (BP Site: Left Arm, BP Position: Sitting, BP Cuff Size: Extra Large Adult) Pulse 81 Ht 172.7 cm (5' 8 ) Wt 119.4 kg (263 lb 3.2 oz) BMI 40.02 kg/m? PAST MEDICAL HISTORY Diagnosis Date BPH (benign prostatic hyperplasia) CAD (coronary artery disease) 2005 s/p PCI/stent 2005 Daytime somnolence GERD (gastroesophageal reflux disease) Hyperlipidemia on a statin medication Hypertension Nasal polyp Obstructive sleep apnea 07/29/2016 sleep study 06/2016 reportedly showed severe sleep apnea; does not use CPAP or bi-PAP yet On continuous oral anticoagulation rivaroxaban (Xarelto); indication: stroke prevention AF; initiated about 05/2016; [id number] = 2 (3 if one counts DM) MIL (obstructive sleep apnea) Palpitations Paroxysmal atrial fibrillation (HCC) symptomatic; possibly becoming more persistent over time; s/p AF catheter ablation 01/20/2017 Persistent atrial fibrillation (HCC) Prostatitis Pyloric stenosis patient describes having stomach inlet obstruction requiring surgery at age 3 yrs Rheumatoid arthritis (HCC) S/P coronary artery stent placement 2005 2005 Shortness of breath Skin cancer Status post catheter ablation of atrial fibrillation 01/20/2017 AF catheter ablation/PVAI: balloon catheter cryoablation 01/20/2017 Type 2 diabetes mellitus (HCC) patient states borderline PAST SURGICAL HISTORY Procedure Laterality Date AFIB ABLATION/PULM VEIN ISOLATION 01/20/2017 AF catheter ablation/PVAI: balloon catheter cryoablation; [facility] Dr. Guerrero APPENDECTOMY 1957 CARDIAC CATH 03/15/2006 single-vessel CAD with significant stenosis RCA; LVEF 65% CAROTID ULTRASOUND 03/07/2006 LICA normal; LUPE A< 15% stenosis CARPAL TUNNEL Bilateral 2014 ECHOCARDIOGRAM 04/20/2017 normal LV size and systolic fxn; LVEF 58%; mild LVH (IVSd = 1.30 cm); stage I diastolic dysfxn; mild to moderate (PG/MG = 33/15 mmHg); AMAURY 1.2 cm2 by continuity equation, 1.8 cm2 by planimetry; mild pulmonic stenosis; normal LA size EXCISION OF NASAL POLYPS SIMPLE 06/2015 HAND SURGERY HX Left left thumb surgery HEART SURGERY HX 11/01/2022 [place] valve put in heart HOLTER MONITOR 12/2015 multiple episodes of AF wth rapid ventricular response rates INSERT INTRACORONARY STENT 2005 PCI/stent to RCA; [facility] ROTATOR CUFF REPAIR Bilateral 1983 SINUS SURGERY HX Bilateral 3 surgeries STRESS ECHO TREADMILL 07/18/2015 no ischemia; LVEF 53% Current Outpatient Medications Medication Sig Dispense Refill clopidogrel (PLAVIX) 75 mg tablet take 4 tablets by mouth on day 1 then 1 tablet daily THEREAFTER donepezil (ARICEPT) 10 mg tablet Take 1 tablet by mouth every afternoon. pregabalin (LYRICA) 100 mg capsule Take 100 mg by mouth three times a day. doxycycline (VIBRA-TABS) 100 mg tablet Take 1 tablet by mouth every 12 hours. apixaban (ELIQUIS ORAL) Take by mouth. metoprolol succinate ER (TOPROL XL) 50 mg 24 hr tablet Take 50 mg by mouth once daily. pravastatin (PRAVACHOL) 80 mg tablet Take 80 mg by mouth once daily. tamsulosin ER (FLOMAX) 0.4 mg cp24 Take 0.4 mg by mouth. aspirin, enteric coated (ASPIRIN, ENTERIC COATED) 81 mg EC tablet Take 81 mg by mouth. fluticasone (FLONASE) 50 mcg/actuation nasal spray Use 1 [place] in each nostril two times a day. hydroxychloroquine (PLAQUENIL) 200 mg tablet Take 1 tablet by mouth twice daily. 180 tablet 1 methotrexate 2.5 mg tablet Take 8 tablets by mouth once each week. 104 tablet 1 Omeprazole 40 mg capsule Take 40 mg by mouth once daily. No current facility-administered medications for this visit. (R35.0) Urinary frequency [R35.0] (primary encounter diagnosis) Chris Page MD This note was generated with voice recognition software and may contain errors, including spelling, grammar, syntax and misrecognition of what was dictated, that are not fully corrected. [facility] 03-30-2023 History of Presen t illness Narrative Luly Smart is a 67 year old male who presents with R 6 cm. This gentleman does not bring his x-rays so I cannot review them. He had a TURP a year ago. He also had PSAs at his doctor. He will be getting another 1 in March. In any rate he is has pain that he can touch on his side. He has pain at night. Not when he moves. But he thinks is 6 cm cyst is causing his pain. I told him its not causing pain. But I cannot review that x-ray. But it looks like it is going to be a benign cyst. I told him that you can draw fluid out of the cyst injected but there is no reason to do that here. Hopefully he is happy with his answers. He does have a urologist and this is a second opinion. Review of Systems- Reviewed and otherwise non-contributory. BP 144/78 (BP Site: Left Arm, BP Position: Sitting, BP Cuff Size: Extra Large Adult) Pulse 81 Ht 172.7 cm (5' 8 ) Wt 119.4 kg (263 lb 3.2 oz) BMI 40.02 kg/m PAST MEDICAL HISTORY Diagnosis Date BPH (benign prostatic hyperplasia) CAD (coronary artery disease) 2005 s/p PCI/stent 2005 Daytime somnolence GERD (gastroesophageal reflux disease) Hyperlipidemia on a statin medication Hypertension Nasal polyp Obstructive sleep apnea 07/29/2016 sleep study 06/2016 reportedly showed severe sleep apnea; does not use CPAP or bi-PAP yet On continuous oral anticoagulation rivaroxaban (Xarelto); indication: stroke prevention AF; initiated about 05/2016; [id number] = 2 (3 if one counts DM) MIL (obstructive sleep apnea) Palpitations Paroxysmal atrial fibrillation (HCC) symptomatic; possibly becoming more persistent over time; s/p AF catheter ablation 01/20/2017 Persistent atrial fibrillation (HCC) Prostatitis Pyloric stenosis patient describes having stomach inlet obstruction requiring surgery at age 3 yrs Rheumatoid arthritis (HCC) S/P coronary artery stent placement 2005 2005 Shortness of breath Skin cancer Status post catheter ablation of atrial fibrillation 01/20/2017 AF catheter ablation/PVAI: balloon catheter cryoablation 01/20/2017 Type 2 diabetes mellitus (HCC) patient states borderline PAST SURGICAL HISTORY Procedure Laterality Date AFIB ABLATION/PULM VEIN ISOLATION 01/20/2017 AF catheter ablation/PVAI: balloon catheter cryoablation; [facility] Dr. Guerrero APPENDECTOMY 1957 CARDIAC CATH 03/15/2006 single-vessel CAD with significant stenosis RCA; LVEF 65% CAROTID ULTRASOUND 03/07/2006 LICA normal; LUPE A< 15% stenosis CARPAL TUNNEL Bilateral 2014 ECHOCARDIOGRAM 04/20/2017 normal LV size and systolic fxn; LVEF 58%; mild LVH (IVSd = 1.30 cm); stage I diastolic dysfxn; mild to moderate (PG/MG = 33/15 mmHg); AMAURY 1.2 cm2 by continuity equation, 1.8 cm2 by planimetry; mild pulmonic stenosis; normal LA size EXCISION OF NASAL POLYPS SIMPLE 06/2015 HAND SURGERY HX Left left thumb surgery HEART SURGERY HX 11/01/2022 [place] valve put in heart HOLTER MONITOR 12/2015 multiple episodes of AF wth rapid ventricular response rates INSERT INTRACORONARY STENT 2005 PCI/stent to RCA; [facility] ROTATOR CUFF REPAIR Bilateral 1983 SINUS SURGERY HX Bilateral 3 surgeries STRESS ECHO TREADMILL 07/18/2015 no ischemia; LVEF 53% Current Outpatient Medications Medication Sig Dispense Refill clopidogrel (PLAVIX) 75 mg tablet take 4 tablets by mouth on day 1 then 1 tablet daily THEREAFTER donepezil (ARICEPT) 10 mg tablet Take 1 tablet by mouth every afternoon. pregabalin (LYRICA) 100 mg capsule Take 100 mg by mouth three times a day. doxycycline (VIBRA-TABS) 100 mg tablet Take 1 tablet by mouth every 12 hours. apixaban (ELIQUIS ORAL) Take by mouth. metoprolol succinate ER (TOPROL XL) 50 mg 24 hr tablet Take 50 mg by mouth once daily. pravastatin (PRAVACHOL) 80 mg tablet Take 80 mg by mouth once daily. tamsulosin ER (FLOMAX) 0.4 mg cp24 Take 0.4 mg by mouth. aspirin, enteric coated (ASPIRIN, ENTERIC COATED) 81 mg EC tablet Take 81 mg by mouth. fluticasone (FLONASE) 50 mcg/actuation nasal spray Use 1 [place] in each nostril two times a day. hydroxychloroquine (PLAQUENIL) 200 mg tablet Take 1 tablet by mouth twice daily. 180 tablet 1 methotrexate 2.5 mg tablet Take 8 tablets by mouth once each week. 104 tablet 1 Omeprazole 40 mg capsule Take 40 mg by mouth once daily. No current facility-administered medications for this visit. (R35.0) Urinary frequency [R35.0] (primary encounter diagnosis) Chris Page MD This note was generated with voice recognition software and may contain errors, including spelling, grammar, syntax and misrecognition of what was dictated, that are not fully corrected. documented in this encounter [facility] 11-19-2022 Telephone encounter Note Reason for Call: Juanpablo Mcdonald pts Cardiac Event Order needs to be changed per the department. The provider noted Event Monitor but is this a mail out monitor was marked yes. This type of Event monitor is not mailed out. If the provider is wanting a MCOT ordered please change the answer for What type of event monitor or if the provider is wanting a Event Monitor ordered please change the answer of is this a mail out monitor. Please place a new order and cancel the old one. Also please route this TE back to me and I will call the pt when a new order is placed to get scheduled for this monitor. Thanks Contact [facility] 11-19-2022 Miscellaneous Notes Reason for Call: Juanpablo Mcdonald pts Cardiac Event Order needs to be changed per the department. The provider noted Event Monitor but is this a mail out monitor was marked yes. This type of Event monitor is not mailed out. If the provider is wanting a MCOT ordered please change the answer for What type of event monitor or if the provider is wanting a Event Monitor ordered please change the answer of is this a mail out monitor. Please place a new order and cancel the old one. Also please route this TE back to me and I will call the pt when a new order is placed to get scheduled for this monitor. Thanks Contact documented in this encounter [facility] 11-15-2022 Telephone encounter Note Faxed Cardiac Rehab order to [facility] at [phone] and l/m to return call if there are any questions [facility] 11-15-2022 Miscellaneous Notes Faxed Cardiac Rehab order to [facility] at [phone] and l/m to return call if there are any questions documented in this encounter [facility] 11-11-2022 Note Patient is status po st TAVR. Postprocedure echocardiogram demonstrated an EF of 55% and a mean gradient of 9 mm per mercury. He continues to have shortness of breath which may be multifactorial including deconditioning , obesity, and possibly atrial fibrillation.We will see him back in 1 month for repeat evaluation and echocardiography. [facility] 11-11-2022 Evaluation + Plan note Associated Problem(s): Paroxysmal atrial fibrillation (CMS/HCC) (HCC) Patient has a history of radiofrequency ablation [place] [address] Guerrero. He reports palpitations and intermittent atrial fibrillation he knows what it feels like. This significantly contributes to his shortness of breath and activity intolerance. Therefore, we have opted to place an event monitor for further evaluation. Additionally, he is not on anticoagulation. [facility] 11-11-2022 Miscellaneous Notes Associated Problem(s): Paroxysmal atrial fibrillation (CMS/HCC) (HCC) Patient has a history of radiofrequency ablation [place] [address] Guerrero. He reports palpitations and intermittent atrial fibrillation he knows what it feels like. This significantly contributes to his shortness of breath and activity intolerance. Therefore, we have opted to place an event monitor for further evaluation. Additionally, he is not on anticoagulation. Associated Problem(s): Severe aortic stenosis Patient is status post TAVR. Postprocedure echocardiogram demonstrated an EF of 55% and a mean gradient of 9 mm per mercury. He continues to have shortness of breath which may be multifactorial including deconditioning , obesity, and possibly atrial fibrillation.We will see him back in 1 month for repeat evaluation and echocardiography. Associated Problem(s): CAD (coronary artery disease) Status post percutaneous intervention of the proximal circumflex artery. He has no angina. He is on dual antiplatelet therapy, however, he is unable to afford the ticagrelor and will reach out to Dr. Cruz regarding substitution with clopidogrel. He is on Pravachol 80 mg daily. Consideration for high potency statin should be entertained; will leave to the discretion of Dr. Cruz. Associated Problem(s): Hypertension Blood pressure controlled continue current regimen. documented in this encounter [facility] 11-11-2022 Evaluation + Plan note Associated Problem(s): Severe aortic stenosis Patient is status post TAVR. Postprocedure echocardiogram demonstrated an EF of 55% and a mean gradient of 9 mm per mercury. He continues to have shortness of breath which may be multifactorial including deconditioning , obesity, and possibly atrial fibrillation.We will see him back in 1 month for repeat evaluation and echocardiography. [facility] 11-11-2022 Evaluation + Plan note Associated Problem(s): CAD (coronary artery disease) Status post percutaneous intervention of the proximal circumflex artery. He has no angina. He is on dual antiplatelet therapy, however, he is unable to afford the ticagrelor and will reach out to Dr. Cruz regarding substitution with clopidogrel. He is on Pravachol 80 mg daily. Consideration for high potency statin should be entertained; will leave to the discretion of Dr. Cruz. [facility] 11-11-2022 Evaluation + Plan note Associated Problem(s): Hypertension Blood pressure controlled continue current regimen. [facility] 11-11-2022 History of Presen t illness Narrative Images from the original note were not included. [facility] [address] [facility] [address] Dept: [phone] Dept Loc: [phone] Visit type: Established : 1955 Reason for Visit: Follow-up (1 week post TAVR) Assessment and Plan 1. Paroxysmal atrial fibrillation (CMS/HCC) (HCC) - Cardiac event monitor - Transthoracic echocardiogram (TTE) complete with contrast, bubble, strain, and 3D PRN - [facility] 2. Severe aortic stenosis - ECG 12 lead - CLINIC PERFORMED - Cardiac event monitor - Transthoracic echocardiogram (TTE) complete with contrast, bubble, strain, and 3D PRN - [facility] 3. Other hyperlipidemia - Cardiac event monitor - Transthoracic echocardiogram (TTE) complete with contrast, bubble, strain, and 3D PRN - [facility] 4. Secondary hypertension - Cardiac event monitor - Transthoracic echocardiogram (TTE) complete with contrast, bubble, strain, and 3D PRN - [facility] No follow-ups on file. Subjective Luly Smart is a very pleasant 67 y.o. male with aortic stenosis (peak/mean 65/37), ejection fraction 55%, CAD with h/o PCI, atrial fibrillation, hypertension, hyperlipidemia, diabetes, rheumatoid arthritis, MIL . He is s/p TAVR with 29 mm Sia S3 on 11/01/2022. He was discharged on 11/02/2022. He presents today for one week follow up appointment. He continues to feel shortness of breath with exertion. He does not really recognize a difference in his exertional dyspnea since his percutaneous intervention or aortic valve replacement. He reports intermittent palpitations. He denies syncope or chest pain. He denies orthopnea or bleeding. He has no groin complaints. Review of Systems Constitutional: Negative for activity change, chills, diaphoresis, fatigue and fever. HENT: Negative for nosebleeds and trouble swallowing. Eyes: Negative for discharge and visual disturbance. Respiratory: Positive for shortness of breath. Negative for apnea, cough, chest tightness and wheezing. Cardiovascular: Positive for palpitations. Negative for chest pain and leg swelling. Gastrointestinal: Negative for abdominal distention, abdominal pain, blood in stool, diarrhea, nausea and vomiting. Endocrine: Negative for cold intolerance and heat intolerance. Genitourinary: Negative for hematuria. Musculoskeletal: Negative for gait problem and myalgias. Skin: Negative for color change and rash. Neurological: Negative for dizziness, seizures, syncope, facial asymmetry, speech difficulty, weakness, light-headedness, numbness and headaches. Hematological: Does not bruise/bleed easily. Psychiatric/Behavioral: Negative for dysphoric mood. No Known Allergies Outpatient Medications Prior to Visit Medication Sig Dispense Refill aspirin 81 MG EC tablet Take 81 mg by mouth daily. donepezil (Aricept) 10 MG tablet Take 10 mg by mouth daily. hydroxychloroquine (Plaquenil) 200 MG tablet Take 200 mg by mouth 2 times daily. metoprolol succinate XL (Toprol-XL) 50 MG 24 hr tablet nortriptyline (Pamelor) 50 MG capsule Take 50 mg by mouth Nightly. pravastatin (Pravachol) 80 MG tablet Take 80 mg by mouth Nightly. pregabalin (Lyrica) 100 MG capsule Take 100 mg by mouth 3 times daily. tamsulosin (Flomax) 0.4 MG 24 hr capsule Take 0.4 mg by mouth 2 times daily. ticagrelor (Brilinta) 90 MG tablet Take 90 mg by mouth 2 times daily. No facility-administered medications prior to visit. Past Medical History: Diagnosis Date Atrial fibrillation (CMS/HCC) (HCC) BPH (benign prostatic hyperplasia) Coronary artery disease Diabetes mellitus (HCC) Heart valve disease Hyperlipidemia Hypertension Rheumatoid arthritis (HCC) Sleep apnea Social History Tobacco Use Smoking status: Former Types: Cigarettes Quit date: 2005 Years since quittin.4 Smokeless tobacco: Never Substance Use Topics Alcohol use: Not Currently Comment: rare Past Surgical History: Procedure Laterality Date CARDIAC CATHETERIZATION N/A 11/01/2022 Performed by Ashley Hylton MD at [facility] OR CORONARY STENT PLACEMENT 2006 RCA TRANSURETHRAL RESECTION OF PROSTATE Family History Problem Relation Name Age of Onset Heart attack Mother 73 Diabetes Son Objective Vitals: 11/11/22 1035 BP: 133/80 BP Location: Left arm Patient Position: Sitting BP Cuff Size: Large adult Pulse: 77 SpO2: 96% Weight: 248 lb 6.4 oz (113 kg) Height: 5' 8 (1.727 m) Physical Exam Constitutional: Appearance: Normal appearance. HENT: Head: Normocephalic and atraumatic. Nose: Nose normal. Eyes: Conjunctiva/sclera: Conjunctivae normal. Pupils: Pupils are equal, round, and reactive to light. Cardiovascular: Rate and Rhythm: Normal rate and regular rhythm. Pulmonary: Effort: Pulmonary effort is normal. Breath sounds: Normal breath sounds. Abdominal: General: Bowel sounds are normal. Palpations: Abdomen is soft. Musculoskeletal: General: Normal range of motion. Cervical back: Normal range of motion and neck supple. Skin: General: Skin is warm and dry. Comments: Wrist and groin are well-healed without bleeding or hematoma. Neurological: General: No focal deficit present. Mental Status: He is alert and oriented to person, place, and time. Psychiatric: Mood and Affect: Mood normal. Thought Content: Thought content normal. Data Reviewed and Summarized EF BP Date Value Ref Range Status 11/02/2022 55 55 - 100 % Final Review of tests/labs done/ordered within my specialty: EKG in office: Sinus rhythm Review of tests/labs done/ordered outside my specialty: Independent interpretation of tests: ROSY Garrett CNP documented in this encounter [facility] 11-02-2022 Note Received Cardiac Larissa ab Referral and reviewed chart. Phase II Cardiac Rehab Referral discussed with Luly Smart. Patient declined program at this time. Information [facility] with patient[facility] Note Formatting of this n ote might be different from the original. Anticipate discharge today. Denies needs. Plan is home. to transport. [facility] 11-02-2022 Miscellaneous Notes Anticipate discharge today. Denies needs. Plan is home. to transport. Care Managment Initial Assessment Date: 11/02/2022 Patient Name: Luly Smart : 1955 Patient Information Source of Information: Patient Cognition/Language: WFL - Within Functional Limits Permission given to speak with patient hobbies and crafts sales representative/caregiver as indicated: Confirmation of Payer with patient/family: Yes Payer Name: N/A - AETNA/AETNA SENIOR SUPPLEMENT MEDICARE/MEDICARE PART A AND B : No Confirmation of Primary Care Physician: Confirmed PCP Name: Luis Catalan MD Seen in last 2 years?: Yes Primary Caregiver: Self If assistance needed, confirmed caregiver ready, willing and able to care for patient at discharge: Confirmed with: Living Arrangements Current Residence: House Number of Floors 1 Number of Entry Steps: 2 Bed/Bath Levels: Both first floor Facility: Facility Name: Plan to Return: Lives with: Spouse/significant other Support Systems: Spouse/significant other, Children Activities of Daily Living Ambulation: Independent Bathing/Dressing: Independent Elimination/Continence/Toiletin g: Independent Feeding: Independent Who Assists with Activities of Daily Living: Instrumental Activities of Daily Living Prescription Coverage: Yes [facility]acy Used: [facility] Medication Management: Independent Transportation/Shopping: Independent Transportation Mode: Car Needs Assistance with Transportation at Discharge: No Meal Preparation: Independent Laundry/Cleaning: Independent Finances/Bill Paying: Independent Communication: Independent Types of Care Services/Equipment Utilized Care Services: Dialysis Type: NA Durable Medical Equipment: Patient's Goal/Discharge Plan Patient expects to be discharged to: Home Discharge Planning Actions: No needs identified Patient's Choice Rights and [employer] and Collaborative Relationships Disclosed as Indicated for Post-Acute Care: Interdisciplinary Team Engagement: Social Work Referral for: Additional Information: Met with pt at bedside. Introduced self and role. Pt adm for TAVR 11/01. Echo done this am. Anticipate discharge today. Pt lives with at home. Independent with ADL's. Plan is to return home. or son to transport. Uday Busby RN Operative Report DATE PERFORMED: 11/01/22 PREOPERATIVE DIAGNOSES: Severe symptomatic calcific aortic stenosis. POSTOPERATIVE DIAGNOSES: Same. PROCEDURE: Transcatheter aortic valve replacement with a 29-mm Begum Sapiens S3 valve via a right transfemoral approach. SURGEONS: Kassidy Mukherjee DO, MS Interventional Cardiologists: Ashley Hylton M.D. INDICATIONS: The patient is an 67-year-old male with severe, symptomatic aortic valvular stenosis who was reviewed in the valve clinic and the valve conference and deemed a candidate for TAVR. The pros, cons, risks, benefits, and alternatives of transcatheter aortic valve replacement were reviewed with the patient, and questions were answered, they provided informed consent and wished to proceed with the procedure. Anesthesia: Local/MAC Complications: None PROCEDURE: The patient was taken to the operating room. The patient was prepped and draped. Using Seldinger technique we placed a right radial artery 6-[place] Citizen sheath percutaneously. A 5 [place] pigtail was advanced over a guidewire into the ascending aorta and parked in the right sinus of Valsalva. A 6 mongolian right venous sheath was placed in the femoral vein. A balloon catheter tip was advanced into the RV and secured. Good capture was achieved. The right common femoral artery was then accessed percutaneously using Seldinger technique. The patient was heparinized. The artery was preclosed with the placement of two Perclose devices. Using the seldinger technique, a 14-[place] Citizen Sia E-sheath was introduced over the wire into the descending aorta. The aortic valve was transversed with a 5F AL1 catheter and 0.035 straight wire. This was exchanged for a pre-shaped Amplatz ExtraStiff wire. A 29mm Sia S3 valve was advanced through the sheath into the descending thoracic aorta. We then mounted the valve into the balloon area using the pusher . Then we flex the catheter and advance it through the arch and ascending aorta and across the aortic valve annulus. Depth of deployment was adjusted. We started rapid ventricular pacing.The pigtail was removed from the right sinus. This abolished ejection and dropped the blood pressure bellow 40mmHg. We then inflated the balloon and deployed the valve. Pacing was stopped. The patient tolerated this well. The valve was noted to seat well and function normally and there was good filling of the coronary arteries on fluoroscopy and transthoracic echocardiography. The pacing wire and sheaths were removed and perclose stitches synched down. Protamine was given to reverse the systemic effects of heparin. Hemostasis was achieved after pressure held. The patient was transferred stable to the recovery room. Kassidy Mukherjee DO, MS Cardiothoracic Surgery documented in this encounter [facility] 11-02-2022 Consult note Associated Order (s): IP CONSULT TO CARDIAC REHAB Received Cardiac Rehab Referral and reviewed chart. Phase II Cardiac Rehab Referral discussed with Luly Smart. Patient declined program at this time. Information left with patient. [facility] 11-02-2022 Consult note Associated Order (s): IP CONSULT TO CARDIAC REHAB Received Cardiac Rehab Referral and reviewed chart. Phase II Cardiac Rehab Referral discussed with Luly Smart. Patient declined program at this time. Information left with patient. documented in this encounter [facility] 11-02-2022 Note Formatting of this n ote might be different from the original. Care Managment Initial Assessment Date: 11/02/2022 Patient Name: Luly Smart : 1955 Patient Information Source of Information: Patient Cognition/Language: WFL - Within Functional Limits Permission given to speak with patient hobbies and crafts sales representative/caregiver as indicated: Confirmation of Payer with patient/family: Yes Payer Name: N/A - AETNA/AETNA SENIOR SUPPLEMENT MEDICARE/MEDICARE PART A AND B [place]: No Confirmation of Primary Care Physician: Confirmed PCP Name: Luis Catalan MD Seen in last 2 years?: Yes Primary Caregiver: Self If assistance needed, confirmed caregiver ready, willing and able to care for patient at discharge: Confirmed with: Living Arrangements Current Residence: House Number of Floors 1 Number of Entry Steps: 2 Bed/Bath Levels: Both first floor Facility: Facility Name: Plan to Return: Lives with: Spouse/significant other Support Systems: Spouse/significant other, Children Activities of Daily Living Ambulation: Independent Bathing/Dressing: Independent Elimination/Continence/Toiletin g: Independent Feeding: Independent Who Assists with Activities of Daily Living: Instrumental Activities of Daily Living Prescription Coverage: Yes Pharmacy Used: [facility] Medication Management: Independent Transportation/Shopping: Independent Transportation Mode: Car Needs Assistance with Transportation at Discharge: No Meal Preparation: Independent Laundry/Cleaning: Independent Finances/Bill Paying: Independent Communication: Independent Types of Care Services/Equipment Utilized Care Services: Dialysis Type: NA Durable Medical Equipment: Patient's Goal/Discharge Plan Patient expects to be discharged to: Home Discharge Planning Actions: No needs identified Patient's Choice Rights and [employer] and Collaborative Relationships Disclosed as Indicated for Post-Acute Care: Interdisciplinary Team Engagement: Social Work Referral for: Additional Information: Met with pt at bedside. Introduced self and role. Pt adm for TAVR 11/01. Echo done this am. Anticipate discharge today. Pt lives with at home. Independent with ADL's. Plan is to return home. or son to transport. Uday Busby RN [facility] 11-01-2022 Note Name: Luly Smart Date of : 1955 Date of Admission: 11/01/2022 Date of Discharge: 11/02/2022 Admitting physician: Ashley Hylton MD Discharge Attending: ROSY Garrett CNP, MD Primary Care Physician: LUIS CATALAN MD Reason for Admission: Severe Symptomatic Aortic Stenosis Consultants: cardiac rehab HOSPITAL ADMISSION PROBLEM LIST: Patient Active Problem List Diagnosis BPH (benign prostatic hyperplasia) CAD (coronary artery disease) GERD (gastroesophageal reflux disease) Hyperlipidemia Hypertension Obstructive sleep apnea Paroxysmal atrial fibrillation (CMS/HCC) (HCC) Rheumatoid arthritis of multiple sites with negative rheumatoid factor (CMS/HCC) (HCC) Nonrheumatic aortic valve stenosis Severe aortic stenosis Denies chest pain, dyspnea, groin complaints this am. Some mild dizziness with position change and weakness in legs this am. Review of Systems Review of Systems Constitutional: Negative for activity change, chills, diaphoresis, fatigue and fever. HENT: Negative for nosebleeds and trouble swallowing. Eyes: Negative for discharge and visual disturbance. Respiratory: Negative for apnea, cough, chest tightness, shortness of breath and wheezing. Cardiovascular: Negative for chest pain, palpitations and leg swelling. Gastrointestinal: Negative for abdominal distention, abdominal pain, blood in stool, diarrhea, nausea and vomiting. Endocrine: Negative for cold intolerance and heat intolerance. Genitourinary: Negative for hematuria. Musculoskeletal: Negative for gait problem and myalgias. Skin: Negative for color change and rash. Neurological: Negative for dizziness, seizures, syncope, facial asymmetry, speech difficulty, weakness, light-headedness, numbness and headaches. Hematological: Does not bruise/bleed easily. Psychiatric/Behavioral: Negative for dysphoric mood. Physical Exam Physical Exam Constitutional: Appearance: Normal appearance. HENT: Head: Normocephalic and atraumatic. Nose: Nose normal. Eyes: Conjunctiva/sclera: Conjunctivae normal. Pupils: Pupils are equal, round, and reactive to light. Cardiovascular: Rate and Rhythm: Normal rate and regular rhythm. Pulmonary: Effort: Pulmonary effort is normal. Breath sounds: Normal breath sounds. Abdominal: General: Bowel sounds are normal. Palpations: Abdomen is soft. Musculoskeletal: General: Normal range of motion. Cervical back: Normal range of motion and neck supple. Skin: General: Skin is warm and dry. Comments: Right groin and wrist soft without bleeding or hematoma Neurological: General: No focal deficit present. Mental Status: He is alert and oriented to person, place, and time. Psychiatric: Mood and Affect: Mood normal. Thought Content: Thought content normal. Procedures: Transfemoral transcatheter AVR with 29 mm Sia S3 valve under moderate sedation Transthoracic echocardiogram HOSPITAL COURSE : The patient was admitted to the hospital for elective TAVR on 11/01/2022 . A 29 mm Sia S3 valve was implanted. The patient returned to [facility] for recovery. Vital signs and labs were stable. There were no groin complications. The patient was ambulatory the evening of the procedure. Post procedure echocardiogram demonstrated : Left Ventricle: Left ventricle size is normal. Normal wall thickness. Normal left ventricular systolic function. Normal wall motion. Right Ventricle: Right ventricle size is normal. Normal systolic function. Aortic Valve: Pre-TAVR hemodynamics are c/w severe Aortic Stenosis with peak and mean gradients of 58 and 36 mmHg AMAURY 0.6cm2, DI=16. Post placement images demonstrate a well seated Begum Sia 3 bioprosthetic aortic valve 29mm mm. AV mean gradient is 3 mmHg. No regurgitation. No paravalvular regurgitation. Mitral Valve: Valve structure is normal. Calcified leaflets. Moderate annular dilation. Physiologically normal regurgitation. Tricuspid Valve: Trace regurgitation. Patient was stable for discharge on POD 1. Patient education including SBE prophylaxis, activity, access site care, follow up appointments, and medications was provided. The patient verbalized understanding, questions were answered. The patient was discharged home in good condition. Referral to cardiac rehabilitation has been recommended and discussed with the patient prior to discharge. Referral has been made to the [facility]. Last Labs: Lab Results Component Value Date WBC 9.2 10/29/2022 HGB 15.0 10/29/2022 HCT 45.5 10/29/2022 MCV 95.1 10/29/2022 PLT 218 10/29/2022 No results found for: NA, K, CL, CO2, BUN, CREATININE, GLUCOSE, CALCIUM Lab Results Component Value Date CHOL 123 10/19/2022 Lab Results Component Value Date TRIG 90 10/19/2022 Lab Results Component Value Date HDL 47 10/19/2022 Lab Results Component Value Date L (more content not included)... [facility] 11-01-2022 Note Patient: Luly Mendieta ch Procedure Summary Date: 11/01/22 [place] [facility] [place] Anesthesia Start: 1149 Anesthesia Stop: 1354 Procedures: TAVR, TTE TRANSCATHETER AORTIC VALVE REPLACEMENT (TAVR) - OR (Chest) Diagnosis: Nonrheumatic aortic valve stenosis (Nonrheumatic aortic valve stenosis [I35.0]) Surgeons: Ashley Hylton MD; Kassidy Mukherjee DO Responsible Provider: Thomas Engle MD Anesthesia Type: TIVA ASA Status: 4 Anesthesia Type: TIVA Vitals Value Taken Time BP 141/78 11/01/22 1355 Temp 97 11/01/22 1355 Pulse 77 11/01/22 1355 Resp 16 11/01/22 1355 SpO2 94 % 11/01/22 1355 Vitals shown include unvalidated device data. Anesthesia Post Evaluation Patient location during evaluation: ICU Patient participation: complete - patient participated Level of consciousness: awake and alert Pain management: satisfactory to patient Airway patency: patent Dental Injury: no Cardiovascular status: acceptable, blood pressure returned to baseline and hemodynamically stable Respiratory status: acceptable and spontaneous ventilation Hydration status: euvolemic Nausea/Vomiting: controlled No notable events documented. Patient can be discharged once all PACU criteria has been met. [facility] 11-01-2022 Note Patient: Luly Mendieta ch Procedure Summary Date: 11/01/22 Room / [place]: [facility] [place] Anesthesia Start: 1149 Anesthesia Stop: 1354 Procedures: TAVR, TTE TRANSCATHETER AORTIC VALVE REPLACEMENT (TAVR) - OR (Chest) Diagnosis: Nonrheumatic aortic valve stenosis (Nonrheumatic aortic valve stenosis [I35.0]) Surgeons: Ashley Hylton MD; Kassidy Mukherjee DO Responsible Provider: Thomas Engle MD Anesthesia Type: TIVA ASA Status: 4 Anesthesia Type: TIVA Vitals Value Taken Time BP 141/78 11/01/22 1354 Temp 97 11/01/22 1354 Pulse 80 11/01/22 1354 Resp 16 11/01/22 1354 SpO2 98 11/01/22 1354 Anesthesia Post Evaluation Patient location during evaluation: ICU Patient participation: complete - patient participated Level of consciousness: awake and alert Pain management: satisfactory to patient Multimodal analgesia pain management approach Airway patency: patent Two or more strategies used to mitigate risk of obstructive sleep apnea Cardiovascular status: acceptable and hemodynamically stable Respiratory status: acceptable Hydration status: acceptable No notable events documented. Anesthesia Post Evaluation I completed my handoff to the receiving clinician during which we: 1. Identified the patient 2. Identified the responsible provider 3. Reviewed the pertinent medical history 4. Discussed the surgical course 5. Reviewed intra-op anesthesia management and issues during anesthesia 6. Set expectations for post-procedure period 7. Allowed opportunity for questions and acknowledgement of understanding. [facility] 11-01-2022 Hospital Discharg e instructions Meghann Lei APRN - [employer] - 11/01/2022 3:15 PM EDT - Please call the Heart Valve Clinic with any questions: [phone] -You will have have the following follow up appointments in the Heart Valve Clinic: one week post procedure, one month post procedure with echocardiogram, one year post procedure with echocardiogram. -Wash groin/wrist incision with soap and water, pat dry. Apply bandage for 5 days. If you have a chest incision, you will receive specific instructions from your surgeon regarding care of the incision. -Check incision every day. If you see any changes in the way it looks, call the Heart Valve Clinic at . Look for any of these problems: redness and warmth that does not go away, yellow or green drainage from the wound, fever and chills, numbness in your legs, pain that is getting worse. -It is normal to have a bruise or soft lump in the groin. This will get smaller and go away with time -Do not drive until after your first Heart Valve Clinic Appointment. -Do not lift, push, or pull anything weighing more than 5 lbs or more for one week if you had the procedure through your groin and 4 weeks if you had the procedure through the chest -We strongly encourage a regular exercise program such as cardiac rehabilitation once you have been cleared to resume normal activity. -Eating well is important for your recovery. Eat nutritious foods every day. Please follow a cardiac, 2 gram sodium diet. Please continue to follow any other dietary recommendations provided by your health care provider prior to your valve surgery. -From now on, tell your doctors and health care providers about your heart valve implantation (prosthetic heart valve ). -If you go to the emergency room or are admitted to the hospital during the first year after your procedure, please call the Heart Valve Clinic at -If you have major dental work or other invasive medical procedures (like surgery) you may need to take antibiotics before the dental work or the procedure. Please discuss with your health care provider. - You will need to take blood thinning medications (antiplatelet) after your valve procedure. Generally, this includes aspirin alone, unless you take blood thinning medications for another indication (warfarin, apixaban, rivaroxaban). If you take blood thinning medications, these are generally sufficient and aspirin will not be required unless otherwise specified. documented in this encounter [facility] 11-01-2022 Note Formatting of this n ote might be different from the original. Operative Report DATE PERFORMED: 11/01/22 PREOPERATIVE DIAGNOSES: Severe symptomatic calcific aortic stenosis. POSTOPERATIVE DIAGNOSES: Same. PROCEDURE: Transcatheter aortic valve replacement with a 29-mm Begum Sapiens S3 valve via a right transfemoral approach. SURGEONS: Kassidy Mukherjee DO, MS Interventional Cardiologists: Ashley Hylton M.D. INDICATIONS: The patient is an 67-year-old male with severe, symptomatic aortic valvular stenosis who was reviewed in the valve clinic and the valve conference and deemed a candidate for TAVR. The pros, cons, risks, benefits, and alternatives of transcatheter aortic valve replacement were reviewed with the patient, and questions were answered, they provided informed consent and wished to proceed with the procedure. Anesthesia: Local/MAC Complications: None PROCEDURE: The patient was taken to the operating room. The patient was prepped and draped. Using Seldinger technique we placed a right radial artery 6-[place] Citizen sheath percutaneously. A 5 [place] Citizen pigtail was advanced over a guidewire into the ascending aorta and parked in the right sinus of Valsalva. A 6 mongolian right venous sheath was placed in the femoral vein. A balloon catheter tip was advanced into the RV and secured. Good capture was achieved. The right common femoral artery was then accessed percutaneously using Seldinger technique. The patient was heparinized. The artery was preclosed with the placement of two Perclose devices. Using the seldinger technique, a 14-[place] Citizen Sia E-sheath was introduced over the wire into the descending aorta. The aortic valve was transversed with a 5F AL1 catheter and 0.035 straight wire. This was exchanged for a pre-shaped Amplatz ExtraStiff wire. A 29mm Sia S3 valve was advanced through the sheath into the descending thoracic aorta. We then mounted the valve into the balloon area using the pusher . Then we flex the catheter and advance it through the arch and ascending aorta and across the aortic valve annulus. Depth of deployment was adjusted. We started rapid ventricular pacing.The pigtail was removed from the right sinus. This abolished ejection and dropped the blood pressure bellow 40mmHg. We then inflated the balloon and deployed the valve. Pacing was stopped. The patient tolerated this well. The valve was noted to seat well and function normally and there was good filling of the coronary arteries on fluoroscopy and transthoracic echocardiography. The pacing wire and sheaths were removed and perclose stitches synched down. Protamine was given to reverse the systemic effects of heparin. Hemostasis was achieved after pressure held. The patient was transferred stable to the recovery room. Kassidy Mukherjee DO, MS Cardiothoracic Surgery [facility] [email or web address] Phone: 10-28-2022 Note Attestation signed by Ashley Hylton MD at 11/01/2022 4:14 PM I have examined the patient on admission and confirm that the necessity for the procedure is still present . The patient's condition has not changed since the History & Physical was originally completed. Ashley Hylton MD 11/01/2022 Visit type: New patient Reason for Visit: Cardiac Valve Problem Assessment and Plan Luly Smart is a very pleasant 67 y.o. male who presents for evaluation of his aortic stenosis. His recent PCI did not improve his symptoms. He does have severe symptomatic aortic stenosis. We will plan to proceed with CTA and then likely TAVR. The Transcatheter Aortic Valve Replacement (TAVR) procedure was explained in detail. The potential risks of the procedure including bleeding, vascular complications, stroke, myocardial infarction, arrhythmias, renal dysfunction, infection and were described. All of the patient's questions were answered. The patient expressed understanding of the procedure and the potential risks and wishes to proceed with TAVR at this time. 1. Aortic valve stenosis, etiology of cardiac valve disease unspecified - Comprehensive metabolic panel - CBC auto differential - NT PRO BNP - Type and Screen - XR chest 2 views 2. Paroxysmal atrial fibrillation (CMS/HCC) ([facility]) - ECG 12 lead - CLINIC PERFORMED 3. Dyspnea, unspecified - NT PRO BNP No follow-ups on file. It was a great pleasure seeing Luly Smart in our office today. Please contact me with any questions. Ashley Hylton MD MPH, [facility], [facility] Chief, Ischemic Heart Disease Facility Rehab Director, Interventional Cardiology Fellowship Feeder Loader Coronary, Structural, Peripheral Interventions Subjective Luly Smart is a very pleasant 67 y.o. male with Aortic stenosis (peak/mean 65/37), ejection fraction 55%, CAD with h/o PCI, atrial fibrillation, hypertension, hyperlipidemia, diabetes, rheumatoid arthritis who presents for evaluation of his aortic stenosis. He has been having significant shortness of breath with any exertion as well as worsening fatigue. He has had some lightheadedness and leg swelling as well. He was may be having some mild chest discomfort. He was evaluated by Dr. Cruz and underwent a heart catheterization which revealed severe circumflex disease and this was stented with a drug-eluting stent. He did not feel much better after his stent and so he was referred to our office for evaluation of his aortic stenosis. He denies any syncope. Review of Systems Constitutional: Negative for activity change, chills, diaphoresis, fatigue and fever. HENT: Negative for nosebleeds and trouble swallowing. Eyes: Negative for discharge and visual disturbance. Respiratory: Positive for shortness of breath (worsening over last month). Negative for apnea, cough, chest tightness and wheezing. Cardiovascular: Positive for chest pain (relieved with rest; midsternal pain; does not radiate). Negative for palpitations and leg swelling. Gastrointestinal: Negative for abdominal distention, abdominal pain, blood in stool, diarrhea, nausea and vomiting. Endocrine: Negative for cold intolerance and heat intolerance. Genitourinary: Negative for hematuria. Musculoskeletal: Negative for gait problem and myalgias. Skin: Negative for color change and rash. Neurological: Positive for dizziness and light-headedness. Negative for seizures, syncope, facial asymmetry, speech difficulty, weakness, numbness and headaches. Hematological: Does not bruise/bleed easily. Psychiatric/Behavioral: Negative for dysphoric mood. No Known Allergies Medications Prior to Visit Outpatient Medications Prior to Visit Medication Sig Dispense Refill donepezil (Aricept) 10 MG tablet Take 10 mg by mouth daily. metoprolol succinate XL (Toprol-XL) 50 MG 24 hr tablet pravastatin (Pravachol) 80 MG tablet Take 80 mg by mouth Nightly. pregabalin (Lyrica) 100 MG capsule Take 100 mg by mouth 3 times daily. tamsulosin (Flomax) 0.4 MG 24 hr capsule Take 0.4 mg by mouth 2 times daily. fluticasone (Flonase) 50 MCG/ACT nasal spray Administer 1 spray into each nostril 2 times daily. furosemide (Lasix) 40 MG tablet Take 40 mg by mouth daily. glimepiride (Amaryl) 2 MG tablet Take 2 mg by mouth 2 times daily. losartan (Cozaar) 25 MG tablet Take 25 mg by mouth daily. metFORMIN (Glucophage) 500 MG tablet Take 500 mg by mouth 2 times daily. QUEtiapine (SEROquel) 25 MG tablet Take 25 mg by mouth Nightly. No facility-administered medications prior to visit. Medical History Past Medical History: Diagnosis Date Atrial fibrillation (CMS/HCC) (HCC) BPH (benign prostatic hyperplasia) Coronary artery disease Diabetes mellitus (HCC) Heart valve disease Hyperlipidemia Hy (more content not included)... [facility] 10-28-2022 Note Attestation signed by Ashley Hylton MD at 11/01/2022 4:14 PM I have examined the patient on admission and confirm that the necessity for the procedure is still present . The patient's condition has not changed since the History & Physical was originally completed. Aslhey Hylton MD 11/01/2022 Visit type: New patient Reason for Visit: Cardiac Valve Problem Assessment and Plan Luly Smart is a very pleasant 67 y.o. male who presents for evaluation of his aortic stenosis. His recent PCI did not improve his symptoms. He does have severe symptomatic aortic stenosis. We will plan to proceed with CTA and then likely TAVR. The Transcatheter Aortic Valve Replacement (TAVR) procedure was explained in detail. The potential risks of the procedure including bleeding, vascular complications, stroke, myocardial infarction, arrhythmias, renal dysfunction, infection and were described. All of the patient's questions were answered. The patient expressed understanding of the procedure and the potential risks and wishes to proceed with TAVR at this time. 1. Aortic valve stenosis, etiology of cardiac valve disease unspecified - Comprehensive metabolic panel - CBC auto differential - NT PRO BNP - Type and Screen - XR chest 2 views 2. Paroxysmal atrial fibrillation (CMS/HCC) (HCC) - ECG 12 lead - CLINIC PERFORMED 3. Dyspnea, unspecified - NT PRO BNP No follow-ups on file. It was a great pleasure seeing Luly Smart in our office today. Please contact me with any questions. Ashley Hylton MD MPH, FACC, [facility] Chief, Ischemic Heart Disease Facility Rehab Director, Interventional Cardiology Fellowship Feeder Loader Coronary, Structural, Peripheral Interventions Subjective Luly Smart is a very pleasant 67 y.o. male with Aortic stenosis (peak/mean 65/37), ejection fraction 55%, CAD with h/o PCI, atrial fibrillation, hypertension, hyperlipidemia, diabetes, rheumatoid arthritis who presents for evaluation of his aortic stenosis. He has been having significant shortness of breath with any exertion as well as worsening fatigue. He has had some lightheadedness and leg swelling as well. He was may be having some mild chest discomfort. He was evaluated by Dr. Cruz and underwent a heart catheterization which revealed severe circumflex disease and this was stented with a drug-eluting stent. He did not feel much better after his stent and so he was referred to our office for evaluation of his aortic stenosis. He denies any syncope. Review of Systems Constitutional: Negative for activity change, chills, diaphoresis, fatigue and fever. HENT: Negative for nosebleeds and trouble swallowing. Eyes: Negative for discharge and visual disturbance. Respiratory: Positive for shortness of breath (worsening over last month). Negative for apnea, cough, chest tightness and wheezing. Cardiovascular: Positive for chest pain (relieved with rest; midsternal pain; does not radiate). Negative for palpitations and leg swelling. Gastrointestinal: Negative for abdominal distention, abdominal pain, blood in stool, diarrhea, nausea and vomiting. Endocrine: Negative for cold intolerance and heat intolerance. Genitourinary: Negative for hematuria. Musculoskeletal: Negative for gait problem and myalgias. Skin: Negative for color change and rash. Neurological: Positive for dizziness and light-headedness. Negative for seizures, syncope, facial asymmetry, speech difficulty, weakness, numbness and headaches. Hematological: Does not bruise/bleed easily. Psychiatric/Behavioral: Negative for dysphoric mood. No Known Allergies Medications Prior to Visit Outpatient Medications Prior to Visit Medication Sig Dispense Refill donepezil (Aricept) 10 MG tablet Take 10 mg by mouth daily. metoprolol succinate XL (Toprol-XL) 50 MG 24 hr tablet pravastatin (Pravachol) 80 MG tablet Take 80 mg by mouth Nightly. pregabalin (Lyrica) 100 MG capsule Take 100 mg by mouth 3 times daily. tamsulosin (Flomax) 0.4 MG 24 hr capsule Take 0.4 mg by mouth 2 times daily. fluticasone (Flonase) 50 MCG/ACT nasal spray Administer 1 spray into each nostril 2 times daily. furosemide (Lasix) 40 MG tablet Take 40 mg by mouth daily. glimepiride (Amaryl) 2 MG tablet Take 2 mg by mouth 2 times daily. losartan (Cozaar) 25 MG tablet Take 25 mg by mouth daily. metFORMIN (Glucophage) 500 MG tablet Take 500 mg by mouth 2 times daily. QUEtiapine (SEROquel) 25 MG tablet Take 25 mg by mouth Nightly. No facility-administered medications prior to visit. Medical History Past Medical History: Diagnosis Date Atrial fibrillation (CMS/HCC) (HCC) BPH (benign prostatic hyperplasia) Coronary artery disease Diabetes mellitus (HCC) Heart valve disease Hyperlipidemia Hy (more content not included)... [facility] 10-28-2022 History and physical note Visit type: New patient Reason for Visit: Cardiac Valve Problem Assessment and Plan Luly Smart is a very pleasant 67 y.o. male who presents for evaluation of his aortic stenosis. His recent PCI did not improve his symptoms. He does have severe symptomatic aortic stenosis. We will plan to proceed with CTA and then likely TAVR. The Transcatheter Aortic Valve Replacement (TAVR) procedure was explained in detail. The potential risks of the procedure including bleeding, vascular complications, stroke, myocardial infarction, arrhythmias, renal dysfunction, infection and were described. All of the patient's questions were answered. The patient expressed understanding of the procedure and the potential risks and wishes to proceed with TAVR at this time. 1. Aortic valve stenosis, etiology of cardiac valve disease unspecified - Comprehensive metabolic panel - CBC auto differential - NT PRO BNP - Type and Screen - XR chest 2 views 2. Paroxysmal atrial fibrillation (CMS/HCC) (HCC) - ECG 12 lead - CLINIC PERFORMED 3. Dyspnea, unspecified - NT PRO BNP No follow-ups on file. It was a great pleasure seeing Luly Smart in our office today. Please contact me with any questions. Ashley Hylton MD MPH, [facility], [facility] Chief, Ischemic Heart Disease Facility Rehab Director, Interventional Cardiology Fellowship Feeder Loader Coronary, Structural, Peripheral Interventions Subjective Luly Smart is a very pleasant 67 y.o. male with Aortic stenosis (peak/mean 65/37), ejection fraction 55%, CAD with h/o PCI, atrial fibrillation, hypertension, hyperlipidemia, diabetes, rheumatoid arthritis who presents for evaluation of his aortic stenosis. He has been having significant shortness of breath with any exertion as well as worsening fatigue. He has had some lightheadedness and leg swelling as well. He was may be having some mild chest discomfort. He was evaluated by Dr. Cruz and underwent a heart catheterization which revealed severe circumflex disease and this was stented with a drug-eluting stent. He did not feel much better after his stent and so he was referred to our office for evaluation of his aortic stenosis. He denies any syncope. Review of Systems Constitutional: Negative for activity change, chills, diaphoresis, fatigue and fever. HENT: Negative for nosebleeds and trouble swallowing. Eyes: Negative for discharge and visual disturbance. Respiratory: Positive for shortness of breath (worsening over last month). Negative for apnea, cough, chest tightness and wheezing. Cardiovascular: Positive for chest pain (relieved with rest; midsternal pain; does not radiate). Negative for palpitations and leg swelling. Gastrointestinal: Negative for abdominal distention, abdominal pain, blood in stool, diarrhea, nausea and vomiting. Endocrine: Negative for cold intolerance and heat intolerance. Genitourinary: Negative for hematuria. Musculoskeletal: Negative for gait problem and myalgias. Skin: Negative for color change and rash. Neurological: Positive for dizziness and light-headedness. Negative for seizures, syncope, facial asymmetry, speech difficulty, weakness, numbness and headaches. Hematological: Does not bruise/bleed easily. Psychiatric/Behavioral: Negative for dysphoric mood. No Known Allergies Medications Prior to Visit Outpatient Medications Prior to Visit Medication Sig Dispense Refill donepezil (Aricept) 10 MG tablet Take 10 mg by mouth daily. metoprolol succinate XL (Toprol-XL) 50 MG 24 hr tablet pravastatin (Pravachol) 80 MG tablet Take 80 mg by mouth Nightly. pregabalin (Lyrica) 100 MG capsule Take 100 mg by mouth 3 times daily. tamsulosin (Flomax) 0.4 MG 24 hr capsule Take 0.4 mg by mouth 2 times daily. fluticasone (Flonase) 50 MCG/ACT nasal spray Administer 1 spray into each nostril 2 times daily. furosemide (Lasix) 40 MG tablet Take 40 mg by mouth daily. glimepiride (Amaryl) 2 MG tablet Take 2 mg by mouth 2 times daily. losartan (Cozaar) 25 MG tablet Take 25 mg by mouth daily. metFORMIN (Glucophage) 500 MG tablet Take 500 mg by mouth 2 times daily. QUEtiapine (SEROquel) 25 MG tablet Take 25 mg by mouth Nightly. No facility-administered medications prior to visit. Medical History Past Medical History: Diagnosis Date Atrial fibrillation (CMS/HCC) (HCC) BPH (benign prostatic hyperplasia) Coronary artery disease Diabetes mellitus (HCC) Heart valve disease Hyperlipidemia Hypertension Rheumatoid arthritis (HCC) Sleep apnea Surgical History Past Surgical History: Procedure Laterality Date CORONARY STENT PLACEMENT 2005 RCA TRANSURETHRAL RESECTION OF PROSTATE Social History Tobacco Use Smoking status: Former Types: Cigarettes Quit date: 2005 Years since quittin.4 Smokeless tobacco: Never Substance Use Topics Alcohol use: Yes Comment: rare Family History Family History Problem Relation Name Age of Onset Heart attack Mother 73 Diabetes Son Objective Vitals Vitals: 10/26/22 1401 BP: (!) 144/100 BP Location: Left arm Patient Position: Sitting BP Cuff Size: Adult Pulse: (!) 113 SpO2: 99% Weight: 248 lb (112 kg) Height: 5' 8 (1.727 m) Body mass index is 37.71 kg/m . Physical Exam Constitutional: General: He is not in acute distress. Appearance: Normal appearance. He is not toxic-appearing. HENT: Head: Normocephalic and atraumatic. Nose: Nose normal. Mouth/Throat: Mouth: Mucous membranes are moist. Eyes: Pupils: Pupils are equal, round, and reactive to light. Neck: Vascular: No carotid bruit or JVD. Cardiovascular: Rate and Rhythm: Regular rhythm. Tachycardia present. Pulses: Dorsalis pedis pulses are 2+ on the right side and 2+ on the left side. Posterior tibial pulses are 2+ on the right side and 2+ on the left side. Heart sounds: Murmur heard. Crescendo systolic murmur is present with a grade of 3/6. Pulmonary: Effort: Pulmonary effort is normal. No respiratory distress. Breath sounds: Normal breath sounds. Abdominal: General: Abdomen is flat. Palpations: Abdomen is soft. Musculoskeletal: General: Normal range of motion. Cervical back: Normal range of motion and neck supple. Right lower leg: No edema. Left lower leg: No edema. Skin: General: Skin is warm and dry. Neurological: General: No focal deficit present. Mental Status: He is alert and oriented to person, place, and time. Psychiatric: Mood and Affect: Mood normal. Data Reviewed and Summarized Labs: personally reviewed No results found for: WBC, HGB, HCT, MCV, PLT Lab Results Component Value Date CALCIUM 9.3 10/19/2022 NA 137 10/19/2022 NA 137 10/19/2022 K 4.2 10/19/2022 K 4.2 10/19/2022 CO2 22 10/19/2022 CO2 22 10/19/2022 CL 107 10/19/2022 CL 107 10/19/2022 BUN 21 (A) 10/19/2022 BUN 21 (A) 10/19/2022 CREATININE 0.96 10/19/2022 CREATININE 0.96 10/19/2022 @LASTCMP@ Lab Results Component Value Date CHOL 123 10/19/2022 Lab Results Component Value Date TRIG 90 10/19/2022 Lab Results Component Value Date HDL 47 10/19/2022 Lab Results Component Value Date LDLCALC 58 10/19/2022 Imaging/Testing: personally reviewed No components found for: LVEF, LVEFMODE Associated attestation - Ashley Hylton MD - 11/01/2022 4:14 PM EDT I have examined the patient on admission and confirm that the necessity for the procedure is still present . The patient's condition has not changed since the History & Physical was originally completed. Ashley Hylton MD 11/01/2022 [facility] 10-28-2022 History and physical note Visit type: New patient Reason for Visit: Cardiac Valve Problem Assessment and Plan Luly Smart is a very pleasant 67 y.o. male who presents for evaluation of his aortic stenosis. His recent PCI did not improve his symptoms. He does have severe symptomatic aortic stenosis. We will plan to proceed with CTA and then likely TAVR. The Transcatheter Aortic Valve Replacement (TAVR) procedure was explained in detail. The potential risks of the procedure including bleeding, vascular complications, stroke, myocardial infarction, arrhythmias, renal dysfunction, infection and were described. All of the patient's questions were answered. The patient expressed understanding of the procedure and the potential risks and wishes to proceed with TAVR at this time. 1. Aortic valve stenosis, etiology of cardiac valve disease unspecified - Comprehensive metabolic panel - CBC auto differential - NT PRO BNP - Type and Screen - XR chest 2 views 2. Paroxysmal atrial fibrillation (CMS/HCC) (HCC) - ECG 12 lead - CLINIC PERFORMED 3. Dyspnea, unspecified - NT PRO BNP No follow-ups on file. It was a great pleasure seeing Luly Smart in our office today. Please contact me with any questions. Ashley Hylton MD MPH, FACC, [facility] Chief, Ischemic Heart Disease Facility Rehab Director, Interventional Cardiology Fellowship Feeder Loader Coronary, Structural, Peripheral Interventions Subjective Luly Smart is a very pleasant 67 y.o. male with Aortic stenosis (peak/mean 65/37), ejection fraction 55%, CAD with h/o PCI, atrial fibrillation, hypertension, hyperlipidemia, diabetes, rheumatoid arthritis who presents for evaluation of his aortic stenosis. He has been having significant shortness of breath with any exertion as well as worsening fatigue. He has had some lightheadedness and leg swelling as well. He was may be having some mild chest discomfort. He was evaluated by Dr. Cruz and underwent a heart catheterization which revealed severe circumflex disease and this was stented with a drug-eluting stent. He did not feel much better after his stent and so he was referred to our office for evaluation of his aortic stenosis. He denies any syncope. Review of Systems Constitutional: Negative for activity change, chills, diaphoresis, fatigue and fever. HENT: Negative for nosebleeds and trouble swallowing. Eyes: Negative for discharge and visual disturbance. Respiratory: Positive for shortness of breath (worsening over last month). Negative for apnea, cough, chest tightness and wheezing. Cardiovascular: Positive for chest pain (relieved with rest; midsternal pain; does not radiate). Negative for palpitations and leg swelling. Gastrointestinal: Negative for abdominal distention, abdominal pain, blood in stool, diarrhea, nausea and vomiting. Endocrine: Negative for cold intolerance and heat intolerance. Genitourinary: Negative for hematuria. Musculoskeletal: Negative for gait problem and myalgias. Skin: Negative for color change and rash. Neurological: Positive for dizziness and light-headedness. Negative for seizures, syncope, facial asymmetry, speech difficulty, weakness, numbness and headaches. Hematological: Does not bruise/bleed easily. Psychiatric/Behavioral: Negative for dysphoric mood. No Known Allergies Medications Prior to Visit Outpatient Medications Prior to Visit Medication Sig Dispense Refill donepezil (Aricept) 10 MG tablet Take 10 mg by mouth daily. metoprolol succinate XL (Toprol-XL) 50 MG 24 hr tablet pravastatin (Pravachol) 80 MG tablet Take 80 mg by mouth Nightly. pregabalin (Lyrica) 100 MG capsule Take 100 mg by mouth 3 times daily. tamsulosin (Flomax) 0.4 MG 24 hr capsule Take 0.4 mg by mouth 2 times daily. fluticasone (Flonase) 50 MCG/ACT nasal spray Administer 1 spray into each nostril 2 times daily. furosemide (Lasix) 40 MG tablet Take 40 mg by mouth daily. glimepiride (Amaryl) 2 MG tablet Take 2 mg by mouth 2 times daily. losartan (Cozaar) 25 MG tablet Take 25 mg by mouth daily. metFORMIN (Glucophage) 500 MG tablet Take 500 mg by mouth 2 times daily. QUEtiapine (SEROquel) 25 MG tablet Take 25 mg by mouth Nightly. No facility-administered medications prior to visit. Medical History Past Medical History: Diagnosis Date Atrial fibrillation (CMS/HCC) (HCC) BPH (benign prostatic hyperplasia) Coronary artery disease Diabetes mellitus (HCC) Heart valve disease Hyperlipidemia Hypertension Rheumatoid arthritis (HCC) Sleep apnea Surgical History Past Surgical History: Procedure Laterality Date CORONARY STENT PLACEMENT 2005 RCA TRANSURETHRAL RESECTION OF PROSTATE Social History Tobacco Use Smoking status: Former Types: Cigarettes Quit date: 2005 Years since quittin.4 Smokeless tobacco: Never Substance Use Topics Alcohol use: Yes Comment: rare Family History Family History Problem Relation Name Age of Onset Heart attack Mother 73 Diabetes Son Objective Vitals Vitals: 10/26/22 1401 BP: (!) 144/100 BP Location: Left arm Patient Position: Sitting BP Cuff Size: Adult Pulse: (!) 113 SpO2: 99% Weight: 248 lb (112 kg) Height: 5' 8 (1.727 m) Body mass index is 37.71 kg/m . Physical Exam Constitutional: General: He is not in acute distress. Appearance: Normal appearance. He is not toxic-appearing. HENT: Head: Normocephalic and atraumatic. Nose: Nose normal. Mouth/Throat: Mouth: Mucous membranes are moist. Eyes: Pupils: Pupils are equal, round, and reactive to light. Neck: Vascular: No carotid bruit or JVD. Cardiovascular: Rate and Rhythm: Regular rhythm. Tachycardia present. Pulses: Dorsalis pedis pulses are 2+ on the right side and 2+ on the left side. Posterior tibial pulses are 2+ on the right side and 2+ on the left side. Heart sounds: Murmur heard. Crescendo systolic murmur is present with a grade of 3/6. Pulmonary: Effort: Pulmonary effort is normal. No respiratory distress. Breath sounds: Normal breath sounds. Abdominal: General: Abdomen is flat. Palpations: Abdomen is soft. Musculoskeletal: General: Normal range of motion. Cervical back: Normal range of motion and neck supple. Right lower leg: No edema. Left lower leg: No edema. Skin: General: Skin is warm and dry. Neurological: General: No focal deficit present. Mental Status: He is alert and oriented to person, place, and time. Psychiatric: Mood and Affect: Mood normal. Data Reviewed and Summarized Labs: personally reviewed No results found for: WBC, HGB, HCT, MCV, PLT Lab Results Component Value Date CALCIUM 9.3 10/19/2022 NA 137 10/19/2022 NA 137 10/19/2022 K 4.2 10/19/2022 K 4.2 10/19/2022 CO2 22 10/19/2022 CO2 22 10/19/2022 CL 107 10/19/2022 CL 107 10/19/2022 BUN 21 (A) 10/19/2022 BUN 21 (A) 10/19/2022 CREATININE 0.96 10/19/2022 CREATININE 0.96 10/19/2022 @LASTCMP@ Lab Results Component Value Date CHOL 123 10/19/2022 Lab Results Component Value Date TRIG 90 10/19/2022 Lab Results Component Value Date HDL 47 10/19/2022 Lab Results Component Value Date LDLCALC 58 10/19/2022 Imaging/Testing: personally reviewed No components found for: LVEF, LVEFMODE Associated attestation - Ashley Hylton MD - 11/01/2022 4:14 PM EDT I have examined the patient on admission and confirm that the necessity for the procedure is still present . The patient's condition has not changed since the History & Physical was originally completed. Ashley Hylton MD 11/01/2022 documented in this encounter [facility] 10-28-2022 Note Patient: Luly Mendieta ch Procedure Information Date/Time: 11/01/22 1245 Procedures: TAVR, TTE TRANSCATHETER AORTIC VALVE REPLACEMENT (TAVR) - OR (Chest) Location: [facility] Operating Room Surgeons: Ashley Hylton MD; Kassidy Mukherjee, Relevant Problems Anesthesia (+) Obstructive sleep apnea Cardio (+) CAD (coronary artery disease) (+) Hyperlipidemia (+) Hypertension (+) Nonrheumatic aortic valve stenosis (+) Paroxysmal atrial fibrillation (CMS/HCC) (HCC) (+) Severe aortic stenosis GI (+) GERD (gastroesophageal reflux disease) /Renal (+) BPH (benign prostatic hyperplasia) Pulmonary (+) Obstructive sleep apnea Other (+) Rheumatoid arthritis of multiple sites with negative rheumatoid factor (CMS/HCC) (HCC) Past Medical History: Past Medical History: No date: Atrial fibrillation (CMS/HCC) (HCC) No date: BPH (benign prostatic hyperplasia) No date: Coronary artery disease No date: Diabetes mellitus (HCC) No date: Heart valve disease No date: Hyperlipidemia No date: Hypertension No date: Rheumatoid arthritis (HCC) No date: Sleep apnea Past Surgical History: Past Surgical History: 2006: CORONARY STENT PLACEMENT Comment: RCA No date: TRANSURETHRAL RESECTION OF PROSTATE Social History: TOBACCO: reports that he quit smoking about 17 years ago. His smoking use included cigarettes. He has never used smokeless tobacco. ETOH: reports current alcohol use. Social History Substance and Sexual Activity Drug Use Never Family History: Family History Problem Relation Name Age of Onset ? Heart attack Mother 73 ? Diabetes Son Screening: unknown Clinical information reviewed: Physical Exam Airway Mallampati: II TM distance: >3 FB Neck ROM: full Mouth Open: normal Cardiovascular Dental (+) Poor Comments: Multiple missing, broken teeth Pulmonary Abdominal Anesthesia Plan ASA 4 TIVA (Chart info) The patient is not a current smoker. Anesthetic plan and risks discussed with patient. patient is NPO Insulin Sliding Scale: low MIL Screening Labs: No results found for: WBC, HGB, HCT, MCV, PLT Lab Results Component Value Date NA 137 10/19/2022 NA 137 10/19/2022 K 4.2 10/19/2022 K 4.2 10/19/2022 CL 107 10/19/2022 CL 107 10/19/2022 CO2 22 10/19/2022 CO2 22 10/19/2022 BUN 21 (A) 10/19/2022 BUN 21 (A) 10/19/2022 CREATININE 0.96 10/19/2022 CREATININE 0.96 10/19/2022 CALCIUM 9.3 10/19/2022 ALKPHOS 119 10/19/2022 ALKPHOS 119 10/19/2022 AST 21 10/19/2022 AST 21 10/19/2022 ALT 33 10/19/2022 ALT 33 10/19/2022 Transthoracic Echocardiogram?09/17/2022 ? Heart Catheterization 10/11/2022 10/26/22 Sinus Tachycardia WITHIN NORMAL LIMITS ECG 12-LEAD (Preliminary) [facility] 10-26-2022 Note TAVR procedure, inst ructions reviewed with pt and family. Patient scheduled for TAVR on 11/01/22 at 12:45 pm Will report to [facility] by 10:45 am Can park in the [facility] Parking Deck or use [employer] parking at the [facility] entrance Plan on overnight stay in the hospital Will not be able to drive for 1 week after procedure Will receive moderate sedation through the IV, will be relaxed but awake during the procedure Nothing to eat or drink after midnight Instructed to take morning medications including ASA/Brilinta as prescribed with small sip of water EXCEPT to HOLD vitamins and supplements morning of surgery Will call with any questions/concerns Pre-op testing done by Tuesday10/29/22 Patient/family verbalized understanding. [facility] 10-26-2022 Note Dx: Procedure: TF TAVR Date/Time: 11/01/22 at 12:45 pm Surgeon: Dr. Hylton/ZANDRA Location: [facility] Admission: A Anesthesia: MAC [facility] 10-26-2022 History of Presen t illness Narrative Images from the original note were not included. [facility]: Cardiothoracic Surgery Multidisciplinary Heart Valve Clinic Date: 10/26/22 Patient:Luly Smart 1955 67 y.o. male [id number] Subjective: HPI: Luly Smart 67 [address] Cruz is being evaluated for aortic valve stenosis. Echocardiogram completed on 09/17/2022 showed moderate - severe aortic valve stenosis with peak/mean gradients 65/37 mm Hg. He describes profound sob w/ any exertion; fatigue; leg swelling and lightheadedness. Per note, pt has history of CAD with stenting to his RCA in 2005, atrial fibrillation requiring EPS/RFA in December 2016, aortic valve stenosis, hyperlipidemia, hypertension, and MIL without CPAP or BiPAP due to intolerance. Echocardiogram from December 2021 showed EF 55% and moderate aortic valve stenosis. Pt has been having worsening shortness of breath, fatigue, and activity intolerance. An echocardiogram was ordered and completed on 09/17/22 which showed moderate-severe aortic valve stenosis. Cardiac catheterization was then completed on 10/11/22 which showed high-grade stenosis noted in the proximal left circumflex artery and severe aortic valve stenosis. Medical History Past Medical History: Diagnosis Date Atrial fibrillation (CMS/HCC) (HCC) BPH (benign prostatic hyperplasia) Coronary artery disease Diabetes mellitus (HCC) Heart valve disease Hyperlipidemia Hypertension Rheumatoid arthritis (HCC) Sleep apnea Blood thinner - none Transthoracic Echocardiogram 09/17/2022 Heart Catheterization 10/11/2022 Review of Systems Constitutional: Negative for activity change, chills, diaphoresis, fatigue and fever. HENT: Negative for nosebleeds and trouble swallowing. Eyes: Negative for discharge and visual disturbance. Respiratory: Positive for shortness of breath (worse over last month). Negative for apnea, cough, chest tightness and wheezing. Cardiovascular: Positive for chest pain (5-8/10; relieved with rest; midsternal pain; does not radiate). Negative for palpitations and leg swelling. Gastrointestinal: Negative for abdominal distention, abdominal pain, blood in stool, diarrhea, nausea and vomiting. Endocrine: Negative for cold intolerance and heat intolerance. Genitourinary: Negative for hematuria. Musculoskeletal: Negative for gait problem and myalgias. Skin: Negative for color change and rash. Neurological: Positive for dizziness and light-headedness. Negative for seizures, syncope, facial asymmetry, speech difficulty, weakness, numbness and headaches. Hematological: Does not bruise/bleed easily. Psychiatric/Behavioral: Negative for dysphoric mood. Allergies: Patient has no known allergies. Past Medical History: has a past medical history of Atrial fibrillation (CMS/HCC) (HCC), BPH (benign prostatic hyperplasia), Coronary artery disease, Diabetes mellitus (HCC), Heart valve disease, Hyperlipidemia, Hypertension, Rheumatoid arthritis (HCC), and Sleep apnea. Past Surgical History: has a past surgical history that includes Coronary stent placement (2005) and Transurethral resection of prostate. Social History: reports that he quit smoking about 17 years ago. His smoking use included cigarettes. He has never used smokeless tobacco. He reports current alcohol use. He reports that he does not use drugs. Family History: family history includes Diabetes in his son; Heart attack (age of onset: 73) in his mother. Medications: Prior to Admission medications Medication Sig Start Date End Date Taking? Authorizing Provider donepezil (Aricept) 10 MG tablet Take 10 mg by mouth daily. 07/27/22 Historical Provider, fluticasone (Flonase) 50 MCG/ACT nasal spray Administer 1 spray into each nostril 2 times daily. 10/10/22 Historical Provider, furosemide (Lasix) 40 MG tablet Take 40 mg by mouth daily. 10/09/22 Historical Provider, glimepiride (Amaryl) 2 MG tablet Take 2 mg by mouth 2 times daily. 11/25/21 Historical Provider, losartan (Cozaar) 25 MG tablet Take 25 mg by mouth daily. 05/05/22 Historical Provider, metFORMIN (Glucophage) 500 MG tablet Take 500 mg by mouth 2 times daily. 09/13/22 Historical Provider, metoprolol succinate XL (Toprol-XL) 50 MG 24 hr tablet 10/09/22 Historical Provider, pravastatin (Pravachol) 80 MG tablet Take 80 mg by mouth Nightly. 08/16/22 Historical Provider, pregabalin (Lyrica) 100 MG capsule Take 100 mg by mouth 3 times daily. 09/20/22 Historical Provider, QUEtiapine (SEROquel) 25 MG tablet Take 25 mg by mouth Nightly. 08/18/22 Historical Provider, tamsulosin (Flomax) 0.4 MG 24 hr capsule Take 0.4 mg by mouth 2 times daily. 10/09/22 Historical Provider, Objective: There were no vitals taken for this visit. @[email or web address]@ Physical Exam Constitutional: General: He is not in acute distress. Appearance: Normal appearance. HENT: Head: Normocephalic and atraumatic. Right Ear: External ear normal. Left Ear: External ear normal. Nose: Nose normal. Mouth/Throat: Lips: [place]. Dentition: Normal dentition. Tongue: No lesions. Tongue does not deviate from midline. Eyes: General: Lids are normal. Conjunctiva/sclera: Conjunctivae normal. Neck: Thyroid: No thyroid mass or thyromegaly. Trachea: Trachea normal. Cardiovascular: Rate and Rhythm: Normal rate and regular rhythm. Pulses: No decreased pulses. Heart sounds: Heart sounds not distant. Murmur heard. No friction rub. Pulmonary: Effort: Pulmonary effort is normal. No accessory muscle usage. Breath sounds: Normal breath sounds and air entry. No stridor or decreased air movement. Abdominal: General: Bowel sounds are normal. Palpations: There is no mass. Tenderness: There is no abdominal tenderness. Hernia: No hernia is present. Musculoskeletal: Cervical back: Full passive range of motion without pain. No rigidity or crepitus. No pain with movement. Right lower leg: No edema. Left lower leg: No edema. Skin: General: Skin is warm. Capillary Refill: Capillary refill takes less than 2 seconds. Findings: No lesion, rash or wound. Comments: Color normal for ethnicity Neurological: Mental Status: He is alert. Psychiatric: Attention and Perception: Attention normal. Mood and Affect: Mood and affect normal. Behavior: Behavior is cooperative. Cognition and Memory: He does not exhibit impaired recent memory or impaired remote memory. Judgment: Judgment normal. Labs: Reviewed in EMR No results found for: WBC, HGB, HCT, MCV, PLT Lab Results Component Value Date NA 137 10/19/2022 NA 137 10/19/2022 K 4.2 10/19/2022 K 4.2 10/19/2022 CL 107 10/19/2022 CL 107 10/19/2022 CO2 22 10/19/2022 CO2 22 10/19/2022 BUN 21 (A) 10/19/2022 BUN 21 (A) 10/19/2022 CREATININE 0.96 10/19/2022 CREATININE 0.96 10/19/2022 CALCIUM 9.3 10/19/2022 Diagnostics: Reviewed in EMR Assessment/Plan: Severe, symptomatic aortic valve stenosis. We reviewed the echo images and the cath images. I recommend TAVR based upon age. I reviewed the risks, benefits and alternatives of surgery. Consented. Patient consents to surgical bailout: [x] Yes [] No If No why: Disclaimers: INFORMED CONSENT: The nature and purpose of the proposed treatment and/or procedure have been discussed. The risks and benefits of the proposed treatment or procedures have been reviewed. Alternatives have been reviewed in addition to the risks and benefits of not receiving treatments or undergoing procedures. Pursuant to this discussion, the patient agrees to undergo the proposed treatment or procedure. Captured images seen in this note are not a substitute for a comprehensive interpretation of the entire data set as reflected by the interpreting physician with regard to radiology, echocardiography, and other diagnostic images. documented in this encounter [facility] 10-20-2022 Note ROSY Burgess CNP, RN Pre-procedure labs reviewed and stable. Renal function looks good for CTA next . Pt notified of BMP results. [facility] 10-20-2022 Telephone encounter Note Images from the original note were not included. ROSY Burgess CNP, RN Pre-procedure labs reviewed and stable. Renal function looks good for CTA next . Pt notified of BMP results. [facility] 10-20-2022 Miscellaneous Notes Images from the original note were not included. ROSY Bugress CNP, RN Pre-procedure labs reviewed and stable. Renal function looks good for CTA next . Pt notified of BMP results. Received call back from , pt had C w/ PCI yesterday by Dr. Cruz, he is without cardiac complaints. I discussed w/ HVC appt, w/CTA same day. Pt will need BMP done in 1 week. CTA @ 11:30 AM on 10/26/22. New patient packet w/ CTA hydration instructions and BMP mailed to pt. Bo Hylton CNP to sign orders. Received fax referral w/ records from Dr. Cruz. Echo/LHC images sent to pacs, confirmed images are there. I left vm message for pt re: scheduling appt. Can consider CTA same day, will need BMP done, orders need placed. Will await return call from pt. documented in this encounter [facility] 10-12-2022 Note Received fax referra l w/ records from Dr. Cruz. Echo/LHC images sent to pacs, confirmed images are there. I left vm message for pt re: scheduling appt. Can consider CTA same day, will need BMP done, orders need placed. Will await return call from pt. [facility] 10-12-2022 Telephone encounter Note Received call back from , pt had LHC w/ PCI yesterday by Dr. Cruz, he is without cardiac complaints. I discussed w/ HVC appt, w/CTA same day. Pt will need BMP done in 1 week. CTA @ 11:30 AM on 10/26/22. New patient packet w/ CTA hydration instructions and BMP mailed to pt. Bo Hylton CNP to sign orders. [facility] 10-12-2022 Telephone encounter Note Received fax referral w/ records from Dr. Cruz. Echo/LHC images sent to pacs, confirmed images are there. I left vm message for pt re: scheduling appt. Can consider CTA same day, will need BMP done, orders need placed. Will await return call from pt. [facility] Evaluation + Plan note No data available for this section [facility] documented in this encounter [facility] note* Diagnosis Aortic valve stenosis, etiology of cardiac valve disease unspecified- Primary documented in this encounter [facility] note* Diagnosis Aortic stenosis Aortic valve disorders Nonrheumatic aortic valve stenosis- Primary [facility] Diagnosis Nonrheumatic aortic valve stenosis- Primary Nonrheumatic aortic valve stenosis Severe aortic stenosis Aortic valve disorders Aortic valve stenosis, etiology of cardiac valve disease unspecified Severe aortic stenosis Aortic valve disorders Nonrheumatic aortic valve stenosis documented in this encounter [facility] note* Diagnosis Paroxysmal atrial fibrillation (CMS/HCC) (HCC)- Primary Atrial fibrillation Severe aortic stenosis Aortic valve disorders Other hyperlipidemia Secondary hypertension Other secondary hypertension, unspecified documented in this encounter [facility]* Diagnosis Paroxysmal atrial fibrillation (CMS/HCC) (HCC)- Primary Atrial fibrillation documented in this encounter [facility]* Diagnosis Urinary frequency [R35.0]- Primary Urinary frequency documented in this encounter [facility] Discharge instructions No data available for this section [facility] Note* NOLBERTO VIERA MD: SIGN, VERIFY Event Display: VL Arterial US/Doppler Both Legs * NOLBERTO VIERA MD: SIGN, VERIFY Event Display: VL - ABIs (ankles only) - [facility] Reason for referral (narrative)* Consultation (Routine) - Pending Review Specialty Diagnoses / Procedures Referred By Contac t Referred To Contact Cardiology Diagnoses Paroxysmal atrial fibrillation (CMS/HCC) (HCC) Severe aortic stenosis Other hyperlipidemia Secondary hypertension Procedures CT OFFICE/OUTPATIENT [facility] 60-74 MINUTES Meghann Lei APRN - CNP [address] [place] [address] [place] [address] Referral ID Status Reason Start Date Expiration Date Visits Requested Visits Authorized [id number] Pending Review Specialty Services Required 11/11/2022 11/11/2023 1 1 * Imaging (Routine) - Pending Review Specialty Diagnoses / Procedures Referred By Contac t Referred To Contact Cardiology Diagnoses Paroxysmal atrial fibrillation (CMS/HCC) (HCC) Severe aortic stenosis Other hyperlipidemia Secondary hypertension Procedures Transthoracic echocardiogram (TTE) complete with contrast, bubble, strain, and 3D PRN CT ECHO TTHRC R-T 2D W/WOM-MODE COMPL SPEC&COLR D CT TTE W OR WO FOL WCON,DOPPLER Meghann Lei APRN - CNP [address] [address] Referral ID Status Reason Start Date Expiration Date Visits Requested Visits Authorized [id number] Pending Review Perform Procedure 11/11/2022 05/10/2023 1 1 * Cardiology (Routine) - Pending Review Specialty Diagnoses / Procedures Referred By Contac t Referred To Contact Cardiology Diagnoses Paroxysmal atrial fibrillation (CMS/HCC) (HCC) Severe aortic stenosis Other hyperlipidemia Secondary hypertension Procedures Cardiac event monitor Meghann Lei APRN - CNP [address] [place] [address] Referral ID Status Reason Start Date Expiration Date V isits Requested Visits Authorized [id number] Pending Review 11/11/2022 05/10/2023 1 1 [facility] Summary Purpose Family History No Family History Records FoundNo Family History Records FoundNo Family History Records FoundNo Family History Records FoundNo Family History Records Found Advance Directives No Advanced Directives Records FoundLatest Code Status on File Code Status Date Activated Date Inactivated Comments Full Code 11/01/2022 9:10 AM 11/02/2022 3:37 PM Latest Code Status on File Code Status Date Activated Date Inactivated Comments Full Code 11/01/2022 9:10 AM 11/02/2022 3:37 PM Reason for Referral Specialty Diagnoses / Procedures Referred By Contac t Referred To Contact Cardiology Diagnoses Paroxysmal atrial fibrillation (CMS/HCC) (HCC) Procedures Cardiac event monitor Anali Hylton APRN - CNP [address] [place] [address] Referral ID Status Reason Start Date Expiration Date V isits Requested Visits Authorized [id number] Pending Review 11/22/2022 05/21/2023 1 1 Specialty Diagnoses / Procedures Referred By Contac t Referred To Contact Radiology Diagnoses Aortic stenosis Procedures CTA Angiogram TAVR Anali Hylton APRN - CNP [address] [place] [address] Referral ID Status Reason Start Date Expiration Date V isits Requested Visits Authorized [id number] Authorized 10/12/2022 04/10/2023 1 1 Additional Source Comments (unrecognized sect ion and content) No Status Records FoundNo Status Records FoundNo Status Records FoundNo Status Records FoundNo Status Records Found INFORMATION SOURCE (unrecogn ized section and content) DATE CREATED AUTHOR AUTHOR'S ORGANIZ ATION 09/17/2018 [facility] DATE CREATED AUTHOR AUTHOR'S ORGANIZ ATION 12/04/2018 [facility] DATE CREATED AUTHOR AUTHOR'S ORGANIZ ATION 12/28/2022 [facility] DATE CREATED AUTHOR AUTHOR'S ORGANIZ ATION 03/31/2023 [facility] nter Care Team (unrecognized sect ion and content) Care Team Personnel Name: LUIS CATALAN MD Member Role: Primary Care Physician Address: Address: [facility] [address] [facility] [address] [place] [address] Care Team Related Persons Name: ALECIA SMART Address: Home [address] [place] [address] Reason for Visit (unrecogniz ed section and content) Reason Comments Cardiac Valve Problem Specialty Diagnoses / Procedures Referred By Contac t Referred To Contact Diagnoses Nonrheumatic aortic (valve) stenosis Procedures CHG CT ANGIO ABD&PLVIS CNTRST MTRL W/WO CNTRST IMG CHG CT ANGIOGRAPHY CHEST W/CONTRAST/NONCONTRAST [facility] [address] [place] [address] Referral ID Status Reason Start Date Expiration Date Visits Re quested Visits Authorized [id number] 1 1 Specialty Diagnoses / Procedures Referred By Contac t Referred To Contact Diagnoses Nonrheumatic aortic valve stenosis Nonrheumatic aortic valve stenosis [I35.0] Procedures TAVR, TTE TRANSCATHETER AORTIC VALVE REPLACEMENT (TAVR) - OR Ashley Hylton MD [address] [place] [address] [address] [place] [address] Referral ID Status Reason Start Date Expiration Date Visits Re quested Visits Authorized [id number] 1 1 Reason Comments Follow-up 1 week post TAVR Reason Onset Date Comments Cardiac Rehab order 11/15/2022 Reason Onset Date Comments Scheduling 11/19/2022 Reason Comments New Patient Kidney mass/cyst Care Teams (unrecognized sec tion and content) Instrument Lens Grinder Apprentice Relationship Specialty Start Date End Date Luis Catalan MD [address] [place] [address] PCP - General Family Medicine 10/22/22 Instrument Lens Grinder Apprentice Relationship Specialty Start Date End Date Luis Catalan MD [address] [place] [address] PCP - General Family Medicine 10/22/22 Instrument Lens Grinder Apprentice Relationship Specialty Start Date End Date Luis Catalan MD [address] [place] [address] PCP - General Family Medicine 10/22/22 Instrument Lens Grinder Apprentice Relationship Specialty Start Date End Date Luis Catalan MD [address] [place] [address] PCP - General Family Medicine 10/22/22 Instrument Lens Grinder Apprentice Relationship Specialty Start Date End Date Luis Catalan MD [address] [place] [address] PCP - General Family Medicine 10/22/22 Instrument Lens Grinder Apprentice Relationship Specialty Start Date End Date Luis Catalan MD [address] [place] [address] PCP - General Family Medicine 10/22/22 Instrument Lens Grinder Apprentice Relationship Specialty Start Date End Date Maria G Lofton PA-C [address] [place] [address] PCP - General Urology 10/13/21 Nadir Ang [address] [place] [address] Specialty Gummed Tape Press Operator Cardiology 08/12/16 Yoan De La Rosa MD [address] [facility] [address] [place], [place] [id number] Specialty Gummed Tape Press Operator Rheumatology 08/12/16 Scheduled Active and Recently Administ ered Medications (unrecognized section and content) Continuous Medication Order 10/31/2022 11/01/2022 11/02/2022 sodium chloride 0.9 % infusion 50 mL/hr, IntraVENous, Continuous, Starting on Tue11/01/22 at 0915, Preprocedure, Upon admission to sameday - please start iv if patient does not have iv access. 0915 (Canceled Entry - Provi yony: Automatic Discharge Provider - Comment: Automatically canceled at discontinue of medication order) PRN Medication Order 10/31/2022 11/01/2022 11/02/2022 acetaminophen (Tylenol) tablet 650 mg 650 mg, Oral, Every 4 hours PRN, mild pain (1-3), Fever > 100.5 F (38 C), Starting on Tue11/01/22 at 1404, Recovery & On Unit, Maximum dose of acetaminophen is 4000 mg from all sources in 24 hours. 1743 (Given - Provider: Mariusz Cervantes RN)2136 (Given - Provider: Salome Calles RN) heparin 2 unit/mL in sodium chloride 0.9 % (COMPLETED) Continuous PRN, Starting on Tue11/01/22 at 1145, Intraprocedure 1145 (New Bag - Provider: Ashley Hylton MD) iodixanol (VISIPaque) 320 MG/ML injection (COMPLETED) Continuous PRN, Starting on Tue11/01/22 at 1310, Intraprocedure 1310 (New Bag - Provider: Ashley Hylton MD) lidocaine PF (Xylocaine) 1 % injection (CANCELED) As needed, Starting on Tue11/01/22 at 1325, Intraprocedure 1325 (Given - Provider: Francisco Hylton MD) perflutren lipid microspheres (Definity) injection 1.65 mg 1.65 mg, IntraVENous, IMG once PRN, other, Suboptimal echo image, Starting on Tue11/01/22 at 1404, For 1 dose, CV Procedural Medications, Administer up to 1.65 mg via slow IVP for suboptimal echocardiogram enhancement. May administer a calculated dose or diluted 8.5 mL of 0.9% sodium chloride for a total volume of 10 mL. May administer as divided doses to reach optimal image enhancement sodium chloride 0.9 % infusion (CANCELED) 5-250 mL/hr, IntraVENous, PRN, if patient receiving piggyback infusions and maintenance fluids are not ordered OR KVO fluids to protect IV site / prevent frequent line interruptions / long duration, Starting on Tue11/01/22 at 0910, Preprocedure, For piggyback infusion, administer at same rate as piggyback for a total of 25 mL. Enter 25 mL into dose field and piggyback rate into rate field of order. If piggyback is infusing at a rate less than 100 mL/hr, enter 25 mL into dose field and 100 mL/hr into rate field of order. For KVO fluids, enter rate of 20 mL/hr or less into rate field of order. 1213 (New Bag - Provider: ROSY Miller CRNA)1249 (New Bag - Provider: ROSY Miller CRNA)1321 (Anesthesia Volume Adjustment - Provider: ROSY Miller CRNA) Source Comments (unrecognize d section and content) In the event this informatio n is protected by the Federal Confidentiality of Alcohol and Drug Abuse Patient Records regulations: The Federal rules restrict any use of the information to criminally investigate or prosecute any alcohol or drug abuse patient.[facility] FOR RECORDS PERTAINING TO PATIENTS WHO ARE OR HAVE BEEN ENROLLED IN A CHEMICAL DEPENDENCY/SUBSTANCEABUSE PROGRAM, SOME INFORMATION MAY BE OMITTED. This clinical summary was aggregated from multiple sources. Caution should be exercised in using it in the provision of clinical care. This summary normalizes information from multiple sources, and as a consequence, information in this document may materially change the coding, format and clinical context of patient data. In addition, data may be omitted in some cases. CLINICAL DECISIONS SHOULD BE BASED ON THE PRIMARY CLINICAL RECORDS. [facility] [employer] [facility]. provides no warranty or guarantee of the accuracy or completeness of information in this document.
[2023-06-17 11:00] LABS: Hematocrit 46.4 % (40-54); Hemoglobin 16.1 g/dL (13.0-16.5); Mean Corp Hgb Conc 34.7 g/dL (32-36); Mean Corpuscular Hgb 32.1 pg (27.0-32.0); Mean Corpuscular Volume 92.6 fL (80-94); Platelet Count 156 K/mm3 (150-450); RBC Distribution Width CV 12.6 % (11.6-14.6); RBC Distribution Width SD 42.9 fl (35.1-43.9); Red Blood Count 5.01 M/mm3 (4.6-6.2); White Blood Count 5.9 K/mm3 (4.4-11.0)
[2023-06-17 11:27] LABS: Anion Gap 7 (5-15); BUN 17 mg/dL (7-18); BUN/Creat Ratio 17.3 RATIO (10-20); Calcium,Total 9.2 mg/dL (8.5-10.1); Chloride 106 mmol/L (98-107); Creatinine, Serum 0.98 mg/dL (0.70-1.30); EST Glomerular Filtration Rate 80 mL/min (>60); Est Glom Filt Rate - Afr Amer 97 mL/min (>60); Glucose 334 mg/dL (74-106); Potassium 3.8 mmol/L (3.5-5.1); Sodium Level 137 mmol/L (136-145)
== END | disposition home or self-care (01) ==
LOC: PSN 09:26
PROVIDERS: PCP Family Medicine; Referring Provider Otolaryngology; Visit Provider Otolaryngology
DX: Z01.810 Encounter for preprocedural cardiovascular examination (principal)
CPT/HCPCS: 36415; 80048; 85027; 93005

== ENCOUNTER → 2023-11-30 | Outpatient (CLI) | payer MEDICARE, OTHER, SELFPAY ==
[2023-11-30 08:24] LABS: Absolute Lymphocyte Count 1.69 X10^3/uL (0.83-4.51); Absolute Neutrophil Count 3.7 X10^3/uL (2.0-7.7); Basophil# 0.06 X10^3/uL; Eosinophil# 0.12 X10^3/uL; Hematocrit 42.9 % (40-54); Hemoglobin 14.7 g/dL (13.0-16.5); Lymphocyte # 1.69 X10^3/ul (0.83-4.51); Lymphocyte % 28.6 % (19-41); Mean Corp Hgb Conc 34.3 g/dL (32-36); Mean Corpuscular Hgb 32.9 pg (27.0-32.0); Mean Platelet Vol. 11.3 fl (6.2-12.0); Monocyte# 0.35 X10^3/uL; Monocyte% 5.9 % (0-10); NRBC Flagged by Analyzer 0 % (0-5); Neutrophil # 3.65 X10^3/uL (2.7-7.7); Platelet Count 142 K/mm3 (150-450); RBC Distribution Width CV 12.8 % (11.6-14.6); RBC Distribution Width SD 45.8 fl (35.1-43.9); Red Blood Count 4.47 M/mm3 (4.6-6.2); White Blood Count 5.9 K/mm3 (4.4-11.0)
[2023-11-30 08:48] LABS: AST(SGOT) 27 U/L (15-37); Alanine Aminotransfer ALT/SGPT 60 U/L (16-61); Albumin, Serum 4.1 g/dL (3.2-5.0); Alkaline Phosphatase 83 U/L (45-117); Anion Gap 7 (5-15); BUN 28 mg/dL (7-18); BUN/Creat Ratio 21.7 RATIO (10-20); Bilirubin, Direct 0.17 mg/dL (0.00-0.30); Calcium,Total 9.5 mg/dL (8.5-10.1); Chloride 103 mmol/L (98-107); Cholesterol 178 mg/dL (200); Creatinine, Serum 1.29 mg/dL (0.70-1.30); EST Glomerular Filtration Rate 58 mL/min (>60); Est Glom Filt Rate - Afr Amer 71 mL/min (>60); Globulin 2.6 g/dL (2.2-4.2); Glucose 389 mg/dL (74-106); High Density Lipoprotein 47 mg/dL; Protein, Total 6.7 g/dL (6.4-8.2); Sodium Level 134 mmol/L (136-145); Triglycerides 200 mg/dL; Very Low Density Lipoprotein 40 mg/dL (5-40)
== END | disposition home or self-care (01) ==
LOC: LAB 07:37
PROVIDERS: PCP Family Medicine; Referring Provider Nurse Practitioner Family; Visit Provider Nurse Practitioner Family
DX: I10 Essential (primary) hypertension (principal); E78.00 Pure hypercholesterolemia, unspecified; Z95.2 Presence of prosthetic heart valve
CPT/HCPCS: 36415; 80048; 80061; 80076; 85025

== ENCOUNTER → 2023-12-16 | Outpatient (CLI) | payer MEDICARE, OTHER, SELFPAY ==
--- NOTE | 2023-12-16 07:44 | ECHOD_ITS ---
Version 2 Reason For Study: TAVR Procedure This was a 2D Doppler, Color Flow transthoracic echocardiogram. Exam performed in department. Left Ventricle Normal LV size. Mild concentric left ventricular hypertrophy. The left ventricular ejection fraction is 60 %. Stage 1 diastolic dysfunction. No regional wall motion abnormalities noted. Right Ventricle Normal RV size. Normal systolic function. Atria Normal left atrium. Normal right atrium. Mitral Valve Normal mitral valve. Tricuspid Valve Normal tricuspid valve. Aortic Valve Peak aortic valve gradient 19 mmHg. Mean aortic valve gradient 9 mmHg. Normal prosthetic aortic valve. Pulmonic Valve Normal pulmonic valve. Great Vessels Normal aortic root. The pulmonary artery is normal size. Normal inferior vena cava. Pericardium/Pleural No pericardial effusion. MMode/2D Measurements & Calculations LVIDd: 3.7 cm IVSd: 1.2 cm LVOT diam: 2.1 cm LVIDs: 2.2 cm LVPWd: 1.3 cm LVOT area: 3.4 cm2 RVDd: 1.9 cm FS: 40.8 % Ao root diam: 4.3 cm LAV(MOD-bp): 63.4 ml LVAd ap4: 27.8 cm2 LAV(MOD-bp) Indexed: 28.0 ml/m2 LVLd ap4: 8.2 cm LAV(MOD-sp2): 60.6 ml EDV(MOD-sp4): 79.8 ml LAV(MOD-sp4): 63.9 ml EDV(sp4-el): 79.8 ml LVAs ap4: 15.1 cm2 LVLs ap4: 6.2 cm ESV(MOD-sp4): 32.1 ml ESV(sp4-el): 31.5 ml EF(MOD-sp4): 59.7 % EF(sp4-el): 60.5 % SV(MOD-sp4): 47.6 ml SV(sp4-el): 48.3 ml LA A4 area: 21.5 cm2 RA A4 area: 15.3 cm2 TAPSE: 1.8 cm Time Measurements MV dec time: 0.38 sec Doppler Measurements & Calculations MV E max franco: 107.7 cm/sec Lat Peak E' Franco: 9.5 cm/sec Med Peak E' Franco: 7.9 cm/sec MV A max franco: 126.8 cm/sec E/E' lat: 11.3 E/E' med: 13.6 MV E/A: 0.85 MV V2 max: 134.6 cm/sec Ao V2 max: 219.4 cm/sec MV max P.2 mmHg MV dec slope: 284.6 cm/sec2 Ao max P.3 mmHg MV V2 mean: 80.1 cm/sec Ao V2 mean: 140.5 cm/sec MV mean P.0 mmHg Ao mean P.5 mmHg MV V2 VTI: 49.4 cm Ao V2 VTI: 44.6 cm AV (velocity ratio): 0.84 MVA(VTI): 2.5 cm2 AMAURY(I,D): 2.8 cm2 AMAURY(V,D): 2.5 cm2 LV V1 max: 160.5 cm/sec SV(LVOT): 125.5 ml LV V1 max P.3 mmHg LV V1 mean P.2 mmHg LV V1 mean: 118.3 cm/sec LV V1 VTI: 37.5 cm ECHO/Echo Complete Interpretation Summary Normal LV size. The left ventricular ejection fraction is 60 %. Stage 1 diastolic dysfunction. Mild concentric left ventricular hypertrophy. Normal prosthetic aortic valve. Mean aortic valve gradient 9 mmHg. Ordering Physician: Farhad Chacon Referring Physician: Farhad Chacon Performed By: Kavita Carroll RCS
== END | disposition home or self-care (01) ==
LOC: CVS 07:43
PROVIDERS: PCP Family Medicine; Referring Provider Nurse Practitioner Family; Visit Provider Nurse Practitioner Family
DX: I25.10 Atherosclerotic heart disease of native coronary artery without angina pectoris (principal); Z95.2 Presence of prosthetic heart valve
CPT/HCPCS: 93306

== ENCOUNTER 2024-02-20 08:18 | Emergency (ER) | payer MEDICARE, OTHER, SELFPAY ==
[2024-02-20 08:19] VITALS: BP 169/69; PULSE 105; RESP 18; TEMP 36.7; O2SAT 97; BMI 38.4
--- NOTE | 2024-02-20 08:44 | EKG12_ITS ---
Test Reason : Blood Pressure : / mmHG Vent. Rate : 099 BPM Atrial Rate : 099 BPM P-R Int : 184 ms QRS Dur : 082 ms QT Int : 342 ms P-R-T Axes : 028 -12 030 degrees QTc Int : 438 ms Normal sinus rhythm Inferior infarct , age undetermined Abnormal ECG Confirmed by SHREYAS RIOS, KIKO ([id number]), news copy editor YEIMY RODRIGUEZ ([id number]) on 02/21/2024 8:41:12 AM Referred By: ELVIN Confirmed By:KIKO PRITCHETT MD
--- NOTE | 2024-02-20 08:46 | EDS_ITS ---
HPI History of Present Illness Chief Complaint: Shortness of Breath Narrative Narrative: Patient is a 68-year-old male with past medical history AAA, CAD status post stents and TAVR, atrial fibrillation, diabetes, pretension, hyperlipidemia, GERD, BPH who presented to the emergency department the chief complaint of chest pain and shortness of breath. Patient states that about 3 weeks ago he heard a pop in his chest and ever since he has not been feeling well he states that he feels like his aortic valve replacement is failing. Patient states that he has shortness of breath on exertion he states that he can barely walk to his restroom in his home without becoming very early short of breath and he states that this distance is very short in nature. He denies any blood thinning medications. He states that he has not had any history of blood clots and has not had any recent travel history. Patient denies any recent sick contacts. 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, 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, 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 Atherosclerotic heart disease of [place] coronary artery without angina pectoris BPH (benign prostatic hyperplasia) Home Medications ?Medication ?Instructions ?Recorded ?Last Taken ?Type donepezil 10 mg tablet 10 mg PO DAILY 06/04/22 10/11/22 History pregabalin 100 mg capsule 100 mg PO TID 06/04/22 10/11/22 History tamsulosin 0.4 mg capsule 0.4 mg PO BID 11/16/22 Unknown History Actemra IV QMONTH 06/24/23 Unknown History lisinopril 10 mg tablet 10 mg PO DAILY #30 tabs 06/24/23 Unknown Rx pravastatin 80 mg tablet 80 mg PO QHS #90 tabs 07/14/23 Unknown Rx clopidogrel 75 mg tablet (Plavix) 75 mg PO QDAY #90 tabs 11/21/23 Unknown Rx ezetimibe 10 mg tablet (Zetia) 10 mg PO DAILY #90 tabs 12/01/23 Unknown Rx oxcarbazepine 300 mg tablet 300 mg PO BID 02/20/24 Unknown History prednisone 1 mg tablet 1 mg PO DAILY 02/20/24 Unknown History prednisone 5 mg tablet 5 mg PO DAILY 02/20/24 Unknown History Allergy/AdvReac Type Severity Reaction Status Date / Time No Known Allergies Allergy Verified 02/20/24 08:18 Family History Son Diabetes Mother Myocardial infarction, Onset Age: 73 Father No problems noted. Son Diabetes Grandmother Breast cancer Surgical History Hx of tooth extraction (~06/2023) History of transcatheter aortic valve replacement (TAVR) (11/01/22) History of coronary artery stent placement (10/11/22) S/P TURP H/O cardiac radiofrequency ablation Presence of coronary angioplasty implant and graft (~03/15/06) History of sinus surgery (~06/21/23) History of cardiac radiofrequency ablation (RFA) (~01/20/17) History of carpal tunnel surgery History of hand surgery History of arthroplasty of left shoulder History of arthroplasty of right shoulder Postsurgical percutaneous transluminal coronary angioplasty (PTCA) status (~03/15/06) Social History Smoking Status: Former smoker how long ago did patient quit smokin, 2pk/day second hand exposure: Yes alcohol intake: current details: rare substance use type: does not use what type of physical activity do you participate in: none ROS ROS ED ROS Narrative Constitutional: Complains of lightheadedness denies any fevers, chills, headaches, Eyes: Denies change of double vision blurry vision Cardiovascular: Complains of chest pain as noted above Respiratory: Complains of shortness of breath as noted above and cough Abdomen: Denies any abdominal pain nausea vomit diarrhea : Denies any urinary symptoms Neurological: Denies numbness, weakness, tingling Musculoskeletal: Denies back pain Skin: Denies rashes or lesions EXAM Physical Exam Narrative Exam Narrative: General: Patient lying in bed rest comfortably did not appear to be in acute distress Head: Atraumatic, normocephalic Eyes: PERRL bilaterally, EOMI bilateral, no conjunctival injection noted Neck: Soft, supple, trach midline Cardiovascular: Regular rate and rhythm no murmurs gallops rubs noted Respiratory: Clear to auscultation bilaterally no rales rhonchi or wheezes noted Abdomen: Soft, no tenderness palpation, no rebound guarding on exam, bowel sounds present x 4 Extremities: +5/5 strength noted in the bilateral upper and lower extremities, no pedal edema on exam, radial pulses +2/4 in the bilateral upper extremities Neurological: Patient is following commands knew that he was at [facility] year is 2023 Skin: Warm, dry, intact Const Vital Signs: 02/20/24 08:19 02/20/24 09:04 02/20/24 10:23 Temperature 98.1 F 97.4 F L Temperature Source Oral Oral Pulse Rate 105 H 88 Respiratory Rate 18 18 Respiratory Effort Normal Non-Labored Respiratory Depth Normal Respiratory Pattern Normal Blood Pressure 169/69 H 123/63 H Blood Pressure Mean 102 83 Pulse Ox 97 96 Oxygen Delivery Method Room Air Room Air Room Air 02/20/24 10:24 Temperature Temperature Source Pulse Rate Respiratory Rate Respiratory Effort Respiratory Depth Respiratory Pattern Blood Pressure Blood Pressure Mean Pulse Ox 96 Oxygen Delivery Method Room Air MDM MDM MDM Narrative Medical decision making narrative: Patient is a 68-year-old male who presented to the emerged part chief complaint of pain and dyspnea on exertion progressively worsening over the last few weeks. Patient will have workup performed here on the differential diagnosis includes but not limited to ACS, CHF, pneumonia. Once workup is obtained reviewed he will be reevaluated. Patient's CBC reviewed and showed no evidence leukocytosis white blood count normal at 6.9, hemoglobin 15.3, platelet count was noted be normal at 180. Patient's sodium normal 137, potassium normal 4.1, creatinine normal at 1.24. Patient's magnesium level was noted 1.8, troponin was noted be normal at 5 with a delta troponin obtained normal at 6. Patient's EKG was reviewed and independently interpreted by myself which showed sinus rhythm with a rate of 99 beats per minutes. Patient's BMP normal at 7.9, TSH was 0.97. Patient's x-ray of his chest was reviewed by myself as well as by radiology which showed no acute cardiopulmonary processes. I did add on a D-dimer to the patient's workup which was noted to be normal at 0.39. Patient was ambulated here in the emergency department tolerated this well no evidence hypoxia no dyspnea on exertion. Did discuss results with the patient and he is feeling better from when he arrived he would like to go home at this point in time. Patient was advised to follow-up with his primary care physician outpatient setting and return with worsening symptoms or other concerns. His significant other at bedside is also agreeable this plan all question concerns answered he is discharged home in stable condition. Lab Data Labs: Laboratory Results - last 24 hr 02/20/24 02/20/24 08:30 11:10 WBC 6.9 RBC 4.54 L Hgb 15.3 Hct 44.1 MCV 97.1 H MCH 33.7 H MCHC 34.7 RDW Std Deviation 44.8 H RDW Coeff of Jaqueline 12.4 Plt Count 180 MPV 11.4 Immature Gran % (Auto) 0.300 Neut % (Auto) 57.2 Lymph % (Auto) 28.7 [place] % (Auto) 8.2 Eos % (Auto) 3.7 Baso % (Auto) 1.9 H Absolute Neuts (auto) 4.0 Absolute Lymphs (auto) 1.99 Nucleated RBC % 0 D-Dimer Quant (PE/DVT) 0.39 Sodium 137 Potassium 4.1 Chloride 100 Carbon Dioxide 26.0 Anion Gap 11 BUN 19 H Creatinine 1.24 Estim Creat Clear Calc 68.11 Est GFR (MDRD) Af Amer 74 Est GFR (MDRD) Non-Af 61 BUN/Creatinine Ratio 15.3 Glucose 359 H Calcium 9.3 Magnesium 1.8 Troponin I High Sens 5 6 B-Natriuretic Peptide 7.9 TSH 0.970 Radiography Diagnostic Testing: Clinical Impression(s) from Imaging Studies Chest X-Ray 02/20/24 09:15 IMPRESSION: No acute cardiopulmonary process identified. Electronically Signed: Chelsi Guillen MD at 9:28 EDT , Discharge Plan Triage Chief Complaint: Shortness of Breath ED Provider: Polo Hinojosa Dx/Rx/DC Orders Clinical Impression: Shortness of breath Prescriptions: No Action pregabalin 100 mg capsule 100 mg PO TID donepezil 10 mg tablet 10 mg PO DAILY tamsulosin 0.4 mg capsule 0.4 mg PO BID Actemra IV QMONTH lisinopril 10 mg tablet 10 mg PO DAILY Qty: 30 11RF prednisone 5 mg tablet 5 mg PO DAILY oxcarbazepine 300 mg tablet 300 mg PO BID prednisone 1 mg tablet 1 mg PO DAILY pravastatin 80 mg tablet 80 mg PO QHS Qty: 90 3RF clopidogrel [Plavix] 75 mg tablet 75 mg PO QDAY Qty: 90 3RF ezetimibe [Zetia] 10 mg tablet 10 mg PO DAILY Qty: 90 3RF Primary Care Provider: Luis Ochoa Referrals: Luis Ochoa MD [Primary Care Provider] - Activity Restrictions/Additional Instructions: Follow-up with your primary care physician outpatient setting. Return with worsening symptoms or other concerns. Print Language: Argentine Disposition Disposition: Home, Self Care
[2024-02-20 08:58] LABS: Absolute Lymphocyte Count 1.99 X10^3/uL (0.83-4.51); Basophil# 0.13 X10^3/uL; Basophil% 1.9 % (0-1); Eosinophil# 0.26 X10^3/uL; Eosinophils% 3.7 % (0-5); Hematocrit 44.1 % (40-54); Hemoglobin 15.3 g/dL (13.0-16.5); Lymphocyte # 1.99 X10^3/ul (0.83-4.51); Lymphocyte % 28.7 % (19-41); Mean Corp Hgb Conc 34.7 g/dL (32-36); Mean Corpuscular Hgb 33.7 pg (27.0-32.0); Mean Corpuscular Volume 97.1 fL (80-94); Mean Platelet Vol. 11.4 fl (6.2-12.0); Monocyte# 0.57 X10^3/uL; Monocyte% 8.2 % (0-10); NRBC Flagged by Analyzer 0 % (0-5); Neutrophil # 3.97 X10^3/uL (2.7-7.7); Neutrophil % 57.2 % (47-70); Platelet Count 180 K/mm3 (150-450); RBC Distribution Width CV 12.4 % (11.6-14.6); RBC Distribution Width SD 44.8 fl (35.1-43.9); Red Blood Count 4.54 M/mm3 (4.6-6.2); White Blood Count 6.9 K/mm3 (4.4-11.0)
[2024-02-20 09:04] VITALS: O2SAT 94
[2024-02-20] MEDS: 0.9% Normal Saline (500mL Bag) 500 ML 999 ML IV (09:09)
--- NOTE | 2024-02-20 09:15 | RAD_ITS ---
HISTORY: chest pain. TECHNIQUE: XR Chest 2 Views. COMPARISON: 03/18/2023. FINDINGS: CARDIOMEDIASTINAL BORDERS: Cardiac silhouette within normal limits in size with valve replacement again seen. Mediastinal contour also unchanged with calcification of the aortic knob. LUNGS: Radiographically clear. PLEURA: No pleural effusion or pneumothorax seen. OSSEOUS STRUCTURES: Spinal osteophytes present. RAD/Chest PA and Lateral IMPRESSION: No acute cardiopulmonary process identified. Electronically Signed: Chelsi Guillen MD at 9:28 EDT ,
[2024-02-20 09:19] LABS: BNP,B-Type NATRIURETIC PEPTIDE 7.9 pg/mL (0-100)
[2024-02-20 09:22] LABS: Anion Gap 11 (5-15); BUN 19 mg/dL (7-18); BUN/Creat Ratio 15.3 RATIO (10-20); Calcium,Total 9.3 mg/dL (8.5-10.1); Chloride 100 mmol/L (98-107); Creatinine, Serum 1.24 mg/dL (0.70-1.30); EST Glomerular Filtration Rate 61 mL/min (>60); Est Glom Filt Rate - Afr Amer 74 mL/min (>60); Estimated Creatinine Clearance 68.11 ml/min; Glucose 359 mg/dL (74-106); Magnesium 1.8 mg/dL (1.6-2.6); Potassium 4.1 mmol/L (3.5-5.1); Sodium Level 137 mmol/L (136-145); Troponin-I HS (w/2H Reflex) 5 pg/mL (3.0-78.0)
[2024-02-20 10:23] VITALS: BP 123/63; PULSE 88; RESP 18; TEMP 36.3; O2SAT 96
[2024-02-20 10:24] VITALS: O2SAT 96
[2024-02-20 10:40] LABS: D-Dimer Quantitative (DVT/PE) 0.39 FEU/ug/m (0.27-0.49)
[2024-02-20 10:55] LABS: Reflex Troponin-HS? (from REC) Y
[2024-02-20 11:19] VITALS: O2SAT 97
[2024-02-20 11:34] LABS: Troponin-I HS 6 pg/mL (3.0-78.0)
[2024-02-20 12:00] VITALS: BP 111/72; PULSE 78; RESP 16; O2SAT 98
== END 2024-02-20 12:17 | disposition home or self-care (01) ==
PROVIDERS: Emergency Provider Emergency Medicine; PCP Family Medicine; Visit Provider Emergency Medicine
DX: R06.02 Shortness of breath (principal); E11.40 Type 2 diabetes mellitus with diabetic neuropathy, unspecified; I25.10 Atherosclerotic heart disease of native coronary artery without angina pectoris; Z95.5 Presence of coronary angioplasty implant and graft; Z87.891 Personal history of nicotine dependence
CPT/HCPCS: 71046; 80048; 83735; 83880; 84443; 84484; 85025; 85379; 93005; 96360; 96361; 99284; J7030; A4216

== ENCOUNTER → 2024-04-06 | Outpatient (CLI) | payer MEDICARE, OTHER, SELFPAY ==
--- NOTE | 2024-04-06 12:48 | ECHOD_ITS ---
Reason For Study: Procedure This was a 2D Doppler, Color Flow transthoracic echocardiogram. Exam performed in department. Left Ventricle Normal LV size. The estimated ejection fraction is 65 %. Unable to assess diastolic dysfunction. No regional wall motion abnormalities noted. Right Ventricle Normal RV size. Normal systolic function. Atria The left and right atria are normal. No doppler evidence for ASD. Mitral Valve There is moderate to severe mitral annular calcification. There is no mitral valve stenosis. No mitral valve insufficiency. Tricuspid Valve There is no tricuspid stenosis. Trivial tricuspid valve insufficiency. Pulmonary artery systolic pressure is 25 mmHg. Aortic Valve There is no aortic stenosis. No aortic valve insufficiency. Stable appearing bioprosthetic aortic valve apparatus. Pulmonic Valve There is no pulmonic valvular stenosis. Trivial pulmonic valve insufficiency. Great Vessels Normal aortic root. Pericardium/Pleural No pericardial effusion. MMode/2D Measurements & Calculations LVIDd: 3.8 cm IVSd: 1.5 cm LVOT diam: 1.9 cm LVIDs: 1.9 cm LVPWd: 1.3 cm LVOT area: 2.9 cm2 FS: 48.5 % Ao root diam: 3.9 cm LAV(MOD-bp): 36.9 ml LVAd ap4: 26.2 cm2 LAV(MOD-bp) Indexed: 16.3 ml/m2 LVLd ap4: 7.8 cm LAV(MOD-sp2): 31.9 ml EDV(MOD-sp4): 75.4 ml LAV(MOD-sp4): 41.2 ml EDV(sp4-el): 74.5 ml LVAs ap4: 13.9 cm2 LVLs ap4: 6.2 cm ESV(MOD-sp4): 28.2 ml ESV(sp4-el): 26.6 ml EF(MOD-sp4): 62.7 % EF(sp4-el): 64.2 % SV(MOD-sp4): 47.2 ml SV(sp4-el): 47.8 ml LA A4 area: 16.6 cm2 SI(MOD-sp4): 20.8 ml/m2 LA dimension(2D): 3.7 cm RA A4 area: 15.0 cm2 Time Measurements MV dec time: 0.44 sec Doppler Measurements & Calculations MV E max franco: 85.8 cm/sec Lat Peak E' Franco: 8.0 cm/sec Med Peak E' Franco: 4.9 cm/sec MV A max franco: 113.5 cm/sec E/E' lat: 10.7 E/E' med: 17.6 MV E/A: 0.76 MV V2 max: 120.1 cm/sec Ao V2 max: 235.3 cm/sec MV max P.8 mmHg MV dec slope: 195.3 cm/sec2 Ao max P.2 mmHg MV V2 mean: 71.7 cm/sec Ao V2 mean: 157.1 cm/sec MV mean P.3 mmHg Ao mean P.5 mmHg MV V2 VTI: 40.6 cm Ao V2 VTI: 44.8 cm PA V2 max: 105.9 cm/sec PA V2 mean: 64.5 cm/sec ECHO/Echo Complete Interpretation Summary The estimated ejection fraction is 65 %. Unable to assess diastolic dysfunction. Ordering Physician: Luis Ochoa Referring Physician: Luis Ochoa Performed By: Kavita Carroll RCS
== END | disposition home or self-care (01) ==
LOC: CVS 12:48
PROVIDERS: PCP Family Medicine; Referring Provider Family Medicine; Visit Provider Family Medicine
DX: I35.0 Nonrheumatic aortic (valve) stenosis (principal)
CPT/HCPCS: 93306

== ENCOUNTER → 2024-04-26 | Outpatient (CLI) | payer MEDICARE, OTHER, SELFPAY ==
[2024-04-26 10:53] LABS: ALB/GLOB Ratio 1.6 RATIO (0.9-2.4); AST(SGOT) 41 U/L (15-37); Alanine Aminotransfer ALT/SGPT 87 U/L (16-61); Albumin, Serum 4.2 g/dL (3.2-5.0); Alkaline Phosphatase 86 U/L (45-117); Anion Gap 7 (5-15); BUN 18 mg/dL (7-18); BUN/Creat Ratio 17.8 RATIO (10-20); Calcium,Total 9.6 mg/dL (8.5-10.1); Chloride 103 mmol/L (98-107); Cholesterol 168 mg/dL (200); Creatinine, Serum 1.01 mg/dL (0.70-1.30); EST Glomerular Filtration Rate 77 mL/min (>60); Est Glom Filt Rate - Afr Amer 94 mL/min (>60); Globulin 2.6 g/dL (2.2-4.2); Glucose 291 mg/dL (74-106); High Density Lipoprotein 57 mg/dL; Potassium 4.1 mmol/L (3.5-5.1); Protein, Total 6.8 g/dL (6.4-8.2); Sodium Level 136 mmol/L (136-145); Triglycerides 189 mg/dL; Very Low Density Lipoprotein 38 mg/dL (5-40)
[2024-04-26 12:42] LABS: Hemoglobin A1c 10.3 % (3.8-5.6)
== END | disposition home or self-care (01) ==
LOC: MFPLAB 08:41
PROVIDERS: PCP Family Medicine; Visit Provider Family Medicine
DX: E11.9 Type 2 diabetes mellitus without complications (principal)
CPT/HCPCS: 36415; 80053; 80061; 83036

== ENCOUNTER → 2024-09-13 | Outpatient (CLI) | payer MEDICARE, OTHER, SELFPAY ==
[2024-09-13 09:33] LABS: PSA,Total - Annual Screen 0.19 ng/mL (0.02-4.00)
== END | disposition home or self-care (01) ==
LOC: LAB 08:06
PROVIDERS: PCP Family Medicine; Referring Provider Urology; Visit Provider Urology
DX: Z12.5 Encounter for screening for malignant neoplasm of prostate (principal)
CPT/HCPCS: 36415; 84153; G0103

== ENCOUNTER 2024-10-29 10:06 | Emergency (ER) | payer MEDICARE, OTHER, SELFPAY ==
[2024-10-29 10:08] VITALS: BP 176/74; PULSE 93; RESP 18; TEMP 36.6; O2SAT 97; BMI 38.6
--- NOTE | 2024-10-29 10:22 | RAD_ITS ---
PROCEDURE: CHEST 1 VIEW (PORTABLE) 10/29/2024 REASON FOR EXAM: CORONARY ARTERY DISEASE TECHNIQUE: Frontal view of the chest. COMPARISON: Prior study dated February 20, 2024. FINDINGS: Hardware: EKG electrodes are seen. Heart: Prior mitral valve replacement. The heart size upper limits of normal. Calcification of the aortic arch. Lungs: The lungs are clear. Bones: Degenerative changes are identified within the thoracic spine. Other: RAD/Chest 1 View (Portable) IMPRESSION: No significant change since last exam. Reading Location: [place] [id number]
--- NOTE | 2024-10-29 10:24 | EX.ED.DYSGE1 ---
HPI History of Present Illness Chief Complaint: General Illness Narrative Narrative: 69-year-old male past medical history of aortic valve replacement, states he has a mechanical valve but not on blood thinners, presents with multiple somatic complaints. Mainly, he states that he has had chronic prostatitis in the past. He has pain from behind his penis shooting backwards. He states he seen his urologist, Dr. Rivas in the past, most recently 3 weeks ago where he was put on another relaxer besides tamsulosin. He presents with pain in his bowels and reported abdominal distention. He does have history of umbilical hernia which could be repaired by Dr. Christina electively. Patient states that he has been having pain in his abdomen for at least 6 months. Additionally, yesterday he states the right side of his face and mouth went numb. While it has resolved, his right lips are somewhat numb as well. He is more concerned about his bowels and his prostate. No fevers or chills, no nausea or vomiting, he states he has not had a bowel movement in 5 to 6 days so he took Dulcolax and was having liquid stool. He is unsure when his lips went numb as well as the right side of his face, but he states to the triage nurse that it was yesterday morning. [facility] Medical History AAA (abdominal aortic aneurysm) Nephrolithiasis Umbilical hernia Rheumatoid aortitis Edentulous Alcohol use History of steroid therapy Easy bruising Former smoker Leg cramps History of stress test History of echocardiogram History of edema Cardiology follow-up encounter History of atrial fibrillation Hyperlipidemia Hypertension Diabetes Neuropathy Liver disease Pure hypercholesterolemia Paroxysmal atrial flutter Essential hypertension PAUL (acute kidney injury) Pulmonary nodule Paroxysmal atrial fibrillation GERD (gastroesophageal reflux disease) 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, usp, current use Atherosclerotic heart disease of [place] coronary artery without angina pectoris BPH (benign prostatic hyperplasia) Home Medications ?Medication ?Instructions ?Recorded ?Last Taken ?Type donepezil 10 mg tablet 10 mg PO DAILY 06/04/22 10/28/24 History pregabalin 100 mg capsule 100 mg PO TID 06/04/22 10/29/24 History tamsulosin 0.4 mg capsule 0.4 mg PO BID 11/16/22 10/29/24 History Actemra 200 mg IV QMONTH 06/24/23 10/22/24 History ezetimibe 10 mg tablet (Zetia) 10 mg PO DAILY #90 tabs 12/01/23 10/28/24 Rx prednisone 5 mg tablet 5 mg PO DAILY 02/20/24 10/28/24 History lisinopril 10 mg tablet 10 mg PO DAILY #30 tabs 06/26/24 10/29/24 Rx pravastatin 80 mg tablet 80 mg PO QHS #90 tabs 08/21/24 10/29/24 Rx glimepiride 2 mg tablet 2 mg PO BID 10/29/24 10/29/24 History Allergy/AdvReac Type Severity Reaction Status Date / Time No Known Allergies Allergy Verified 10/29/24 10:08 Family History Son Diabetes Mother Myocardial infarction, Onset Age: 73 Father No problems noted. Son Diabetes Grandmother Breast cancer Surgical History Hx of tooth extraction (~06/2023) History of transcatheter aortic valve replacement (TAVR) (11/01/22) History of coronary artery stent placement (10/11/22) S/P TURP H/O cardiac radiofrequency ablation Presence of coronary angioplasty implant and graft (~03/15/06) History of sinus surgery (~06/21/23) History of cardiac radiofrequency ablation (RFA) (~01/20/17) History of carpal tunnel surgery History of hand surgery History of arthroplasty of left shoulder History of arthroplasty of right shoulder Postsurgical percutaneous transluminal coronary angioplasty (PTCA) status (~03/15/06) Social History Smoking Status: Former smoker how long ago did patient quit smokin, 2pk/day second hand exposure: Yes alcohol intake: current details: rare substance use type: does not use what type of physical activity do you participate in: none ROS ROS ED ROS Narrative Review of systems positive for right facial numbness-resolved, right mouth numbness, abdominal pain, constipation. No fevers or chills, no nausea or vomiting. Positive liquid stool after taking Dulcolax. EXAM Physical Exam Narrative Exam Narrative: Afebrile. Vital signs noted. Nontoxic-appearing. Cardiovascular examination reveals a regular rate and rhythm. Lungs are clear to auscultation bilaterally. Abdomen is soft, nontender without guarding or rebound. Positive umbilical hernia, reducible, no erythema or induration. Positive bowel sounds. Neurological examination is nonfocal, nonlateralizing. No facial droop. Moves all extremities. Const Vital Signs: 10/29/24 10:08 10/29/24 10:40 10/29/24 12:08 Temperature 97.9 F Temperature Source Oral Pulse Rate 93 81 Respiratory Rate 18 21 H Respiratory Effort Non-Labored Short of Breath Respiratory Pattern Normal Blood Pressure 176/74 H 129/54 H Blood Pressure Mean 108 77 Pulse Ox 97 97 Oxygen Delivery Method Room Air 10/29/24 12:15 10/29/24 13:51 Temperature 97.9 F Temperature Source Pulse Rate 83 83 Respiratory Rate 21 H 21 H Respiratory Effort Respiratory Pattern Blood Pressure 127/55 H 127/55 H Blood Pressure Mean 75 79 Pulse Ox 94 94 Oxygen Delivery Method MDM MDM MDM Narrative Medical decision making narrative: Patient is unable to state or pinpoint when he had the facial numbness that started but he states it is in the morning. This could be greater than 24 hours. I do not feel stroke team is indicated as his major concern is more his abdominal pain. Differential diagnosis includes UTI versus prostatitis versus diverticulitis versus bowel obstruction. Comprehensive workup was pursued. I will obtain CT imaging of the brain as well as chest x-ray and CT imaging of the abdomen and pelvis with IV contrast. UA will be obtained as well as basic laboratory work including CBC and CMP. I reviewed his prior records, part of his problem list is history of TAVR. I reviewed his laboratory work and he has a white count of 5.5 which is normal, hemoglobin 15.2, hematocrit 43.1, platelet count slightly low at 148. When compared to prior labs she has had prior intermittent thrombocytopenia. BMP is remarkable for glucose of 186 with anion gap normal at 13, normal sodium and normal potassium. LFTs slightly elevated at 45 and 70 but when compared to prior they were also previously elevated. Urinalysis negative for infections with WBC 0. 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 Chest x-ray interpreted by myself independently shows no evidence of pneumonia or infiltrate or pneumothorax. I reviewed the radiology report which confirms my independent interpretation. I also reviewed the radiology report of the CT of the abdomen and pelvis which shows no acute process. There is diverticulosis but no evidence of diverticulitis. Given the patient's reported facial numbness which is now resolved including his lips, and his reported right arm numbness, I do feel he merits at least observation. I discussed patient with Dr. Stanton who reviewed his laboratory work, and did his assessment in the emergency department. In discussion with Dr. Stanton, the patient has opted not to have an MRI performed at 3 PM, and is agreeable to discharge. He will be started on corporative gel as well as aspirin for 21 days, and was called in a prescription for ciprofloxacin for 21 days with a suspicion of prostatitis. Patient will follow-up with his urologist and through shared decision making through the hospitalist, was decided that he can go home on these medications called in by the hospitalist. Disposition is discharged home in stable condition. History & Record Review Discussion w/independent historian: Patient and Family Additional record(s) reviewed:: Prior labs (Prior thrombocytopenia) Lab Data Attestation: I reviewed the patient's lab results. Labs: Laboratory Results - last 24 hr 10/29/24 10/29/24 10:45 11:50 WBC 5.5 RBC 4.59 L Hgb 15.2 Hct 43.1 MCV 93.9 MCH 33.1 H MCHC 35.3 RDW Std Deviation 45.3 H RDW Coeff of Jaqueline 13.2 Plt Count 148 L MPV 10.9 Immature Gran % (Auto) 0.500 Neut % (Auto) 76.0 H Lymph % (Auto) 14.2 L [place] % (Auto) 6.8 Eos % (Auto) 0.5 Baso % (Auto) 2.0 H Absolute Neuts (auto) 4.2 Absolute Lymphs (auto) 0.78 L Nucleated RBC % 0 Sodium 138 Potassium 4.4 Chloride 104 Carbon Dioxide 21.2 Anion Gap 13 BUN 16 Creatinine 0.94 Estim Creat Clear Calc 88.82 Est GFR (MDRD) Non-Af 86 BUN/Creatinine Ratio 16.5 Glucose 186 H Calcium 9.5 Total Bilirubin 0.65 AST 45 H ALT 70 H Alkaline Phosphatase 51 Total Protein 6.8 Albumin 4.6 Globulin 2.2 Albumin/Globulin Ratio 2.1 Urine Color Yellow Urine Clarity Clear Urine pH 7.0 Ur Specific [place] 1.010 Urine Protein 15 H Urine Glucose (UA) Normal Urine Ketones 5 H Urine Occult Blood Negative Urine Nitrite Negative Urine Bilirubin Negative Urine Urobilinogen Normal Ur Leukocyte Esterase Negative Urine RBC 0 SEEN Urine WBC 0 SEEN Ur Squamous Epith Cells 0 SEEN Urine Bacteria 0 SEEN Urine Mucus 0 SEEN Radiography Diagnostic Testing: Clinical Impression(s) from Imaging Studies Chest X-Ray 10/29/24 10:22 IMPRESSION: No significant change since last exam. Reading Location: [facility]-1 Abdomen/Pelvis CT 10/29/24 11:10 IMPRESSION: Fatty infiltration of the liver. Sludge in the gallbladder lumen. Sigmoid diverticulosis with no radiographic evidence of diverticulitis. Stable right renal cysts. Reading Location: [facility] 10/29/24 11:10 IMPRESSION: CHRONIC CHANGES. NO ACUTE FINDINGS. Reading Location: [facility]--1 Discharge Plan Triage Chief Complaint: General Illness ED Provider: Roger Salomon Dx/Rx/DC Orders Clinical Impression: Facial numbness, Abdominal pain, Elevated LFTs, Prostatitis Instructions: ED Pain, Acute, Uncertain Cause, ED Prostatitis, ED Paraesthesias Prescriptions: No Action pregabalin 100 mg capsule 100 mg PO TID donepezil 10 mg tablet 10 mg PO DAILY tamsulosin 0.4 mg capsule 0.4 mg PO BID Actemra 200 mg IV QMONTH glimepiride 2 mg tablet 2 mg PO BID prednisone 5 mg tablet 5 mg PO DAILY ezetimibe [Zetia] 10 mg tablet 10 mg PO DAILY Qty: 90 3RF lisinopril 10 mg tablet 10 mg PO DAILY Qty: 30 11RF pravastatin 80 mg tablet 80 mg PO QHS Qty: 90 3RF Primary Care Provider: Luis Ochoa Referrals: Luis Ochoa MD [Primary Care Provider] - 3-5 Days Activity Restrictions/Additional Instructions: Follow-up with your urologist and primary care provider. Your workup today was negative. Take the prescriptions as directed by Dr. Stanton. Print Language: Telugu Disposition Disposition: Home, Self Care Discharge Date/Time: 10/29/24 13:52
[2024-10-29] MEDS: 0.9% Normal Saline (1000mL) 1,000 ML 1000 ML IV (10:50)
[2024-10-29 11:03] LABS: Absolute Lymphocyte Count 0.78 X10^3/uL (0.83-4.51); Absolute Neutrophil Count 4.2 X10^3/uL (2.0-7.7); Basophil# 0.11 X10^3/uL; Eosinophil# 0.03 X10^3/uL; Eosinophils% 0.5 % (0-5); Hematocrit 43.1 % (40-54); Hemoglobin 15.2 g/dL (13.0-16.5); Lymphocyte # 0.78 X10^3/ul (0.83-4.51); Lymphocyte % 14.2 % (19-41); Mean Corp Hgb Conc 35.3 g/dL (32-36); Mean Corpuscular Hgb 33.1 pg (27.0-32.0); Mean Corpuscular Volume 93.9 fL (80-94); Mean Platelet Vol. 10.9 fl (6.2-12.0); Monocyte# 0.37 X10^3/uL; Monocyte% 6.8 % (0-10); NRBC Flagged by Analyzer 0 % (0-5); Neutrophil # 4.16 X10^3/uL (2.7-7.7); Platelet Count 148 K/mm3 (150-450); RBC Distribution Width CV 13.2 % (11.6-14.6); RBC Distribution Width SD 45.3 fl (35.1-43.9); Red Blood Count 4.59 M/mm3 (4.6-6.2); White Blood Count 5.5 K/mm3 (4.4-11.0)
--- NOTE | 2024-10-29 11:10 | CT_ITS ---
PROCEDURE: ABDOMEN/PELVIS W IV CONT ONLY 10/29/2024 REASON FOR EXAM: ABDOMINAL PAIN History of kidney stones. History of alcohol abuse. TECHNIQUE: Abdomen and pelvis CT with intravenous contrast. Coronal and Sagittal reconstruction series were provided. PATIENT PREPARATION: Per protocol ORAL CONTRAST TYPE: None. CONTRAST: Isovue-300 VOLUME: 100 mL One or more dose reduction techniques were used (e.g., Automated exposure control, adjustment of the mA and/or kV according to patient size, use of iterative reconstruction technique. RADIATION DOSE SUMMARY: CTDlvol: 16.6 mGy DLP: 1316.38 mGycm COMPARISON: Prior study dated January 13, 2023. FINDINGS: Lung bases: No acute abnormality. Prior aortic valve replacement. Coronary artery calcification. Liver: Diffuse fatty infiltration. Gallbladder: I suspect sludge in the gallbladder lumen. Spleen: Normal size. Pancreas: Normal size without evidence of mass surrounding inflammation or ductal dilation. Adrenals: Unremarkable Kidneys: Stable 4.4 cm x 7 cm cyst in the upper posterior aspect of the right kidney. Bladder: Unremarkable Bowel: Colonic diverticulosis without diverticulitis. Appendix: The appendix is not identified. There is no inflammatory process identified in the right lower quadrant to suggest appendicitis. Lymph nodes: No suspicious lymph node enlargement. Vasculature: Diffuse atherosclerotic calcification of the aorta and the major branches. The distal abdominal aorta as a transverse dimension of 2.8 cm. Peritoneum / Retroperitoneum: Umbilical hernia containing fat. The neck of the hernia measures 2.5 cm. Bones: Degenerative changes of the spine. CT/Abdomen/Pelvis W IV Cont ONLY IMPRESSION: Fatty infiltration of the liver. Sludge in the gallbladder lumen. Sigmoid diverticulosis with no radiographic evidence of diverticulitis. Stable right renal cysts. Reading Location: [place] [id number]
--- NOTE | 2024-10-29 11:10 | CT_ITS ---
PROCEDURE: BRAIN/HEAD WITHOUT CONTRAST 10/29/2024 REASON FOR EXAM: FACIAL NUMBNESS TECHNIQUE: Head CT without intravenous contrast. Coronal and Sagittal reconstruction series were provided. One or more dose reduction techniques were used (e.g., Automated exposure control, adjustment of the mA and/or kV according to patient size, use of iterative reconstruction technique. RADIATION DOSE SUMMARY: CTDlvol: 44.99 mGy DLP: 829.85 mGycm COMPARISON: None FINDINGS: Brain: Low density in the periventricular white matter suggests mild chronic small vessel ischemic changes. CSF Spaces: Findings suggestive of old ischemic infarct in the posterior right parietal occipital lobe. Sinuses/Mastoids: Clear at visualized levels Bones: CT/Brain/Head without Contrast IMPRESSION: CHRONIC CHANGES. NO ACUTE FINDINGS. Reading Location: [place] [address]
[2024-10-29 11:42] LABS: ALB/GLOB Ratio 2.1 RATIO (0.9-2.4); AST(SGOT) 45 U/L (<=37); Alanine Aminotransfer ALT/SGPT 70 U/L (<=46); Albumin, Serum 4.6 g/dL (3.4-4.8); Alkaline Phosphatase 51 U/L (40-129); Anion Gap 13 (5-15); BUN 16 mg/dL (4-19); BUN/Creat Ratio 16.5 RATIO (10-20); Calcium,Total 9.5 mg/dL (7.6-11.0); Carbon Dioxide 21.2 mmol/L (21.0-32.0); Chloride 104 mmol/L (98-108); Creatinine, Serum 0.94 mg/dL (0.70-1.20); EST Glomerular Filtration Rate 86 (>60); Estimated Creatinine Clearance 88.82 ml/min (50-250); Globulin 2.2 g/dL (2.2-4.2); Glucose 186 mg/dL (70-99); Potassium 4.4 mmol/L (3.3-5.1); Protein, Total 6.8 g/dL (5.9-8.4); Sodium Level 138 mmol/L (133-145); Total Bilirubin 0.65 mg/dL (0.00-1.30)
[2024-10-29 12:08] VITALS: BP 129/54; PULSE 81; RESP 21; O2SAT 97
[2024-10-29 12:12] LABS: Bacteria 0 SEEN /hpf (None Seen); Mucous, Urine 0 SEEN /hpf (<or=2+); Red Blood Cells-Urine 0 SEEN /hpf (0-5); Squamous Epithelial Cells - UA 0 SEEN /hpf (0-5); White Blood Cells 0 SEEN /hpf (0-5)
[2024-10-29 12:15] VITALS: BP 127/55; PULSE 83; RESP 21; O2SAT 94
[2024-10-29 12:15] LABS: Color, Urine Yellow (Yellow); Glucose, Dipstick Normal (Normal); Ketone-Dipstick 5 mg/dl (Negative); Leukocyte Esterase-Dipstick Negative /ul (Negative); Nitrite-Dipstick Negative (Negative); Occult Blood-Urine Negative /ul (Negative); Protein-Dipstick 15 mg/dl (Negative); Urine Bilirubin Dipstick Negative (Negative); Urine Clarity Clear (Clear); Urine Urobilinogen Normal (Normal)
--- NOTE | 2024-10-29 13:21 | PN.HOSP_ITS ---
Hospitalist Note Patient was seen and examined in the emergency room at the request of the emergency room physician (Dr. Henning)
--- NOTE | 2024-10-29 13:21 | PCM.HOSP.N ---
Hospitalist Note Patient was seen and examined in the emergency room at [facility] at the request of the emergency room physician (Dr. Salomon) concerning a possible admission to [facility]. This 69-year-old white male came to the emergency room at [facility] with complaints of generalized malaise and a pressure sensation in the perineal area. Patient gives a history of chronic prostate issues (questionable prostatitis) times years. In addition patient complained of transient right facial numbness that lasted approximately 2 hours involving the right face and right upper lip area. This has since resolved. Workup in the emergency room included a chemistry profile which was remarkable for a slight elevation of 2 liver enzymes and a slightly elevated blood sugar, urinalysis was unremarkable, PSA was unremarkable, and patient had an abdominal CT which showed gallbladder sludge, no diverticulitis, and fatty liver which patient was known to have. I went over all these findings with the patient and his who was in the room today and told them that I would not advise coming in the hospital. I gave them the option of the patient having a brain MRI at 3:00 today to verify he did not have a stroke (which I think is unlikely) or simply take clopidogrel in addition to his daily aspirin 81 mg. Patient agreed to take the clopidogrel for 21 days with his aspirin and then drop off the clopidogrel. In addition, I told the patient that I could do a rectal examination to verify if his prostate was tender but it would more than likely be tender and I just recommended he take 3 weeks of Cipro and follow-up with his urologist. Patient stated that the last time he saw his urologist he was not happy with his treatment, he stated he was placed on a medication twice a day and then he went back to see the urologist who told him it was the wrong medication, he was then placed on another medication which the patient stated made him sick for a month. I advised the patient to take the Cipro for 3 weeks and he agreed to this approach. I called both prescriptions into [facility] in [facility], I did discuss the case with Dr. Salomon. The patient's was okay with this plan of medical treatment.
[2024-10-29 13:51] VITALS: BP 127/55; PULSE 83; RESP 21; TEMP 36.6; O2SAT 94
== END 2024-10-29 13:52 | disposition home or self-care (01) ==
PROVIDERS: Emergency Provider Emergency Medicine; PCP Family Medicine; Visit Provider Emergency Medicine
DX: R20.0 Anesthesia of skin (principal); E11.40 Type 2 diabetes mellitus with diabetic neuropathy, unspecified; N41.9 Inflammatory disease of prostate, unspecified; I25.10 Atherosclerotic heart disease of native coronary artery without angina pectoris; R79.89 Other specified abnormal findings of blood chemistry; Z87.891 Personal history of nicotine dependence; Z79.84 Long term (current) use of oral hypoglycemic drugs; Z79.899 Other long term (current) drug therapy; Z95.5 Presence of coronary angioplasty implant and graft
CPT/HCPCS: 70450; 71045; 74177; 80053; 81001; 85025; 96360; 96361; 99284; Q9967; A4216

== ENCOUNTER → 2024-11-01 | Outpatient (CLI) | payer MEDICARE, OTHER, SELFPAY ==
[2024-11-01 10:56] LABS: Cholesterol 167 mg/dL (<=200); High Density Lipoprotein 35 mg/dL; Low Density Lipoprotein Calc. 93 mg/dL; Triglycerides 197 mg/dL; Very Low Density Lipoprotein 39 mg/dL (5-40); cholesterol:hdl ratio screen 4.79
== END | disposition home or self-care (01) ==
LOC: MFPLAB 08:42
PROVIDERS: PCP Family Medicine; Referring Provider Family Medicine; Visit Provider Family Medicine
DX: E78.5 Hyperlipidemia, unspecified (principal); E11.9 Type 2 diabetes mellitus without complications
CPT/HCPCS: 36415; 80061

== ENCOUNTER 2025-04-03 12:55 | Emergency (ER) | payer MEDICARE, OTHER, SELFPAY ==
[2025-04-03 12:56] VITALS: BP 142/81; PULSE 88; RESP 16; TEMP 36.7; O2SAT 98; BMI 38.5
--- NOTE | 2025-04-03 13:11 | EKG12_ITS ---
Test Reason : Blood Pressure : */* mmHG Vent. Rate : 86 BPM Atrial Rate : 86 BPM P-R Int : 178 ms QRS Dur : 78 ms QT Int : 362 ms P-R-T Axes : 50 -12 36 degrees QTcB Int : 433 ms Normal sinus rhythm Inferior infarct , age undetermined Abnormal ECG Confirmed by ALVIN RIOS, MINA ([id number]), staff editor YEIMY RODRIGUEZ ([id number]) on 04/08/2025 8:27:54 AM Referred By: Confirmed By: MINA ESQUIVEL MD
[2025-04-03 13:39] LABS: Hematocrit 46.4 % (40-54); Hemoglobin 16.4 g/dL (13.0-16.5); Immature Granulocytes Count 0.030 X10^3/uL (0.0-0.0); Mean Corp Hgb Conc 35.3 g/dL (32-36); Mean Corpuscular Volume 96.3 fL (80-94); Mean Platelet Vol. 10.6 fl (6.2-12.0); NRBC Flagged by Analyzer 0 % (0-5); Platelet Count 181 K/mm3 (150-450); RBC Distribution Width CV 13.7 % (11.6-14.6); RBC Distribution Width SD 48.5 fl (35.1-43.9); Red Blood Count 4.82 M/mm3 (4.6-6.2); White Blood Count 8.0 K/mm3 (4.4-11.0)
--- NOTE | 2025-04-03 13:40 | RAD_ITS ---
PROCEDURE: CHEST PA AND LATERAL 04/03/2025 REASON FOR EXAM: COUGH TECHNIQUE: Procedure Code: RADCXR Modality: DX Procedure: CHEST PA AND LATERAL COMPARISON: October 29, 2024. FINDINGS: Hardware: None Heart: The heart size is normal. Mediastinum: The mediastinal contour is unremarkable. Lungs: There are granulomatous calcifications. The lungs are otherwise clear. Bones: Degenerative changes are identified within the thoracic spine. RAD/Chest PA and Lateral IMPRESSION: NO ACUTE FINDINGS. Reading Location: [place] [id number]
[2025-04-03 14:10] LABS: Anion Gap 12 (5-15); BUN 17 mg/dL (4-19); BUN/Creat Ratio 20.1 RATIO (10-20); Calcium,Total 9.4 mg/dL (7.6-11.0); Carbon Dioxide 22.9 mmol/L (21.0-32.0); Chloride 104 mmol/L (98-108); Estimated Creatinine Clearance 100.48 ml/min (50-250); Glucose 190 mg/dL (70-99); Potassium 4.2 mmol/L (3.3-5.1); Troponin T High Sensitivity 12 ng/L (<=22)
--- NOTE | 2025-04-03 15:55 | ED.RN ---
1550 - Called for pt with no answer. Attempted to call pt to ensure IV was out. Left message, then called back and stated IV was removed by nurse.
== END 2025-04-03 16:00 | disposition left against medical advice (07) ==
LOC: ED 16:03
PROVIDERS: PCP Family Medicine
DX: Z53.21 Procedure and treatment not carried out due to patient leaving prior to being seen by health care provider (principal)
CPT/HCPCS: 71046; 80048; 84484; 85025; 93005; A4216